=== PATIENT | male | born 1950 | race Caucasian/White ===

== ENCOUNTER → 2016-06-19 | Outpatient (CLI) | payer BC, OTHER ==
[~2016-06-19] MED LIST: ACTUDL GJT; AMLO-114 PO; AMOX1TAB43 PO; AMOX875T PO; ASPI325T39 PO; ASPI81TA28 PO; CALC500C3 PO; CARB25TA12 PO; CBCI IV; CLON0.5T3 PO; CPR500 PO; DOCU-94 PO; DVN/160 PO; DVN80 PO; ESCI10TA17 PO; ESCI1TAB6 PO; FRRS300 PO; HYDR-5688 PO; HYDROMORPHONE HCL PO; INDSR/60 PO; MYS50 PO; NRV5 PO; OXYC-164 PO; PANCCAP2 PO; PANT40TA PO; PRIM50TA29 PO; PRLSR20 PO; PRT40 PO; RXC5 PO; SIMV40TA2 PO; SODI0.9S IV; TPN IV; VANC5CAP; XNX25 PO; [UNRECOGNIZED DRUG - CODE] RE
[2016-06-19 12:58] LABS: BASO % 0.3 %; BASO ABS # 0.03 K/uL (0-0.2); COMPLETE YES; EOS % 3.3 %; HEMATOCRIT 40.5 % (42-52); IG% 0.3 %; LYMPH % 13.6 %; LYMPH ABS # 1.52 K/uL (1.2-3.4); MEAN CORPUSCULAR HEMOGLOBIN 30.4 pg (25-34); MEAN CORPUSCULAR HGB CONC 33.8 g/dl (32-36); MEAN PLATELET VOLUME 10.6 fL (7.4-10.4); MONO % 7.8 %; NEUT % 74.7 %; PLATELET COUNT 519 K/uL (130-400)
[2016-06-19 13:13] LABS: INR 1.2 (0.9-1.1); PROTHROMBIN TIME (PATIENT) 12.4 SECONDS (9.0-12.0)
[2016-06-19 13:27] LABS: ALKALINE PHOSPHATASE 108 U/L (45-117); ALT/SGPT 37 U/L (12-78); AST/SGOT 20 U/L (15-37); BLOOD UREA NITROGEN 29 mg/dl (7-18); BUN/CREATININE RATIO 35.1 (10-20); CARBON DIOXIDE 25 mmol/L (21-32); CHLORIDE 110 mmol/L (98-107); CREATININE 0.83 mg/dl (0.60-1.40); GLUCOSE 89 mg/dl (70-99); POTASSIUM 4.1 mmol/L (3.5-5.1); SODIUM 142 mmol/L (136-145); TRIGLYCERIDES 90 mg/dl (0-150)
== END | disposition home or self-care (01) ==
LOC: C.LABSPEC 12:27
PROVIDERS: ATTEND Internal Medicine Gastroenterology
DX: K85.90 Acute pancreatitis without necrosis or infection, unspecified (principal)

== ENCOUNTER → 2016-06-26 | Outpatient (CLI) | payer BC ==
[~2016-06-26] MED LIST changes: -AMOX875T PO; -ASPI81TA28 PO; -CARB25TA12 PO; -DOCU-94 PO; -FRRS300 PO; -PRT40 PO
[2016-06-26 13:27] LABS: BASO ABS # 0.01 K/uL (0-0.2); COMPLETE YES; EOS % 0.4 %; HEMATOCRIT 37.5 % (42-52); IG% 0.4 %; LYMPH % 4.2 %; LYMPH ABS # 0.91 K/uL (1.2-3.4); MEAN CELL VOLUME 88.9 fL (80-100); MEAN CORPUSCULAR HEMOGLOBIN 29.9 pg (25-34); MEAN CORPUSCULAR HGB CONC 33.6 g/dl (32-36); MEAN PLATELET VOLUME 10.6 fL (7.4-10.4); MONO % 5.8 %; NEUT % 89.2 %; PLATELET COUNT 434 K/uL (130-400); RED BLOOD COUNT 4.22 M/uL (4.7-6.1); WHITE BLOOD COUNT 21.85 K/uL (4.8-10.8)
[2016-06-26 13:36] LABS: INR 1.2 (0.9-1.1); PROTHROMBIN TIME (PATIENT) 13.3 SECONDS (9.0-12.0)
[2016-06-26 13:50] LABS: ALT/SGPT 180 U/L (12-78); BLOOD UREA NITROGEN 23 mg/dl (7-18); CALCIUM 8.8 mg/dl (8.5-10.1); CARBON DIOXIDE 26 mmol/L (21-32); CHLORIDE 108 mmol/L (98-107); CREATININE 0.66 mg/dl (0.60-1.40); GLUCOSE 87 mg/dl (70-99); MAGNESIUM 1.9 mg/dl (1.8-2.4); POTASSIUM 3.7 mmol/L (3.5-5.1); SODIUM 142 mmol/L (136-145)
[2016-06-26 13:53] LABS: ALKALINE PHOSPHATASE 133 U/L (45-117); AST/SGOT 65 U/L (15-37); PHOSPHORUS 3.2 mg/dl (2.5-4.9); TRIGLYCERIDES 48 mg/dl (0-150)
== END | disposition home or self-care (01) ==
LOC: C.LABSPEC 12:53
PROVIDERS: ATTEND Internal Medicine Gastroenterology
DX: K85.90 Acute pancreatitis without necrosis or infection, unspecified (principal)

== ENCOUNTER 2016-06-28 17:29 | Inpatient (IN) | payer BC, OTHER ==
[~2016-06-28] VITALS: Ht 172.7 cm; Wt 67.7 kg
[~2016-06-28 17:29] MED LIST changes: -ACTUDL GJT; -AMLO-114 PO; -AMOX1TAB43 PO; -ASPI325T39 PO; -CALC500C3 PO; -CBCI IV; -CPR500 PO; -DVN80 PO; -ESCI10TA17 PO; -ESCI1TAB6 PO; -HYDROMORPHONE HCL PO; -INDSR/60 PO; -MYS50 PO; -NRV5 PO; -OXYC-164 PO; -PANCCAP2 PO; -PRIM50TA29 PO; -PRLSR20 PO; -RXC5 PO; -SODI0.9S IV; -TPN IV; -VANC5CAP; -[UNRECOGNIZED DRUG - CODE] RE
[2016-06-28] MEDS ORDERED: HYDROmorphone INJ 1 MG/ML SYR IV STA ×2 (17:43→18:49)
[2016-06-28] MEDS ORDERED: ONDANSETRON INJ 2 MG/ML 2 ML VIAL IV STA (17:43)
[2016-06-28] MEDS ORDERED: SODIUM CHLORIDE 0.9% 1000ML 1,000 ML IV STA (17:43)
[2016-06-28] MEDS ORDERED: PIPERACILLIN/TAZOBACTAM 4.5 GM/100ML D5W IV STA (17:46)
[2016-06-28] MEDS ORDERED: OPTIRAY 320 IV PRN (18:00)
[2016-06-28 18:06] LABS: BASO % 0.2 %; BASO ABS # 0.04 K/uL (0-0.2); COMPLETE YES; EOS % 0.7 %; HEMATOCRIT 37.1 % (42-52); IG% 0.5 %; LYMPH ABS # 1.97 K/uL (1.2-3.4); MEAN CELL VOLUME 87.5 fL (80-100); MEAN CORPUSCULAR HEMOGLOBIN 31.1 pg (25-34); MEAN CORPUSCULAR HGB CONC 35.6 g/dl (32-36); MEAN PLATELET VOLUME 10.4 fL (7.4-10.4); MONO % 2.9 %; NEUT % 85.7 %; PLATELET COUNT 451 K/uL (130-400); RED BLOOD COUNT 4.24 M/uL (4.7-6.1); WHITE BLOOD COUNT 19.79 K/uL (4.8-10.8)
[2016-06-28] MEDS ORDERED: SODIUM CHLORIDE 0.9% 1000ML 2,000 ML IV STA (18:07)
[2016-06-28] MEDS ORDERED: KETOROLAC TROMETHAMINE 30 MG/ML VIAL IV STA (18:07)
[2016-06-28] MEDS ORDERED: ACETAMINOPHEN IV 650 MG in EMPTY BAG 0 ML IV STA (18:09)
[2016-06-28 18:10] LABS: ISTAT CREATININE 0.6 mg/dl (0.6-1.3); ISTAT HEMOGLOBIN 12.9 g/dl (14.0-18.0); ISTAT IONIZED CALCIUM 1.16 mmol/l (1.12-1.32)
--- NOTE | 2016-06-28 18:11 | DIAGNOSTIC IMAGING REPORT ---
CHEST ONE VIEW PORTABLE CLINICAL HISTORY: fever COMPARISON STUDY: 05/06/2016 FINDINGS: The examination is mildly limited from a technical standpoint. There is a right-sided PICC catheter which projects in the superior vena cava. There is a nasogastric tube which passes into the stomach. There is no focal pulmonary consolidation. A right upper lung zone line shadow is felt to represent a skinfold. There are no pleural effusions. There is no overt failure.[ IMPRESSION: AP portable study. No active disease in the chest. Electronically signed by: Abdoulaye Alarcon M.D. 06/28/2016 6:09 PM Dictated Date/Time: 06/28/2016 6:08 PM
[2016-06-28 18:14] LABS: INR 1.2 (0.9-1.1); PROTHROMBIN TIME (PATIENT) 12.9 SECONDS (9.0-12.0)
[2016-06-28 18:30] LABS: ALKALINE PHOSPHATASE 161 U/L (45-117); ALT/SGPT 91 U/L (12-78); AST/SGOT 27 U/L (15-37); BLOOD UREA NITROGEN 19 mg/dl (7-18); BUN/CREATININE RATIO 25.8 (10-20); CALCIUM 9.1 mg/dl (8.5-10.1); CARBON DIOXIDE 25 mmol/L (21-32); CHLORIDE 105 mmol/L (98-107); CREATININE 0.74 mg/dl (0.60-1.40); GLUCOSE 85 mg/dl (70-99); MAGNESIUM 2.6 mg/dl (1.8-2.4); POTASSIUM 3.7 mmol/L (3.5-5.1); SODIUM 142 mmol/L (136-145)
--- NOTE | 2016-06-28 18:57 | DIAGNOSTIC IMAGING REPORT ---
CT ABD/PELVIS IV CONTRAST ONLY CLINICAL HISTORY: Severe abdominal pain. Extent. COMPARISON STUDY: 06/11/2016 TECHNIQUE: Following the IV administration of 120 mL of Optiray-320, CT scan of the abdomen and pelvis was performed from the lung bases to the proximal femurs. Images are reviewed in the axial, sagittal, and coronal planes. IV contrast was administered without complication. CT DOSE: 282.53 mGy.cm FINDINGS: Lower chest: There are minor basilar atelectatic changes. Liver: There is mild prominence the central intrahepatic ducts. No focal hepatic masses are visualized. Gallbladder: Surgically absent Spleen: There is mild splenomegaly (13.2 cm). There are several linear lucencies within the superior aspect of the spleen. Small splenic lacerations cannot be excluded although there is no perisplenic fluid to support this diagnosis. In addition there is no history of trauma. Pancreas: There is an indwelling pancreatic no duodenal stent. There is indistinctness the pancreatic tail and peripancreatic stranding. There is infiltration of the fat level the splenic hilum. The findings suggest mild pancreatitis. There is subtle hypodensities at the level of the pancreatic tail. These could be related to pancreatitis although a neoplastic process cannot be excluded with certainty Adrenal glands: There is mild adrenal gland thickening similar to the prior study Kidneys: There are vascular calcifications. No calculi are visualized. No solid renal masses are evident. Bowel: There are no transition zones indicate bowel obstruction. There is small fat-containing left inguinal hernia. There are no findings to indicate acute diverticulitis. There are no findings to indicate acute appendicitis. There is indwelling nasogastric tube. There are postsurgical changes the level of the rectosigmoid Peritoneum: There is trace free pelvic fluid. No free air is visualized. Vasculature: The abdominal aorta is normal in course and caliber. Adenopathy: None. Pelvic viscera: There is mild prostatic enlargement Skeletal structures: No destructive osseous lesions are seen. IMPRESSION: 1. Indwelling pancreatic duodenal stent 2. Indistinctness the pancreatic tail with peripancreatic stranding. The findings are suggestive of pancreatitis 3. Mild splenomegaly. There are clefts within the superior margin of the spleen. Small lacerations cannot be excluded however there is no history of trauma, and there is no perisplenic fluid to support this diagnosis 4. No evidence of bowel obstruction. No evidence of free air 5. Surgically absent gallbladder. Mild dilatation the common bile duct (10 mm) Electronically signed by: Abdoulaye Alarcon M.D. 06/28/2016 6:55 PM Dictated Date/Time: 06/28/2016 6:45 PM
[2016-06-28] MEDS ORDERED: VANCOMYCIN 1GM/270ML NSS IV STA (19:17)
[2016-06-28] MEDS ORDERED: VANCOMYCIN INJ 1,300 MG in SODIUM CHLORIDE 0.9% 250ML 250 ML IV STA (19:17)
[2016-06-28 20:11] LABS: URINE APPEARANCE CLEAR (CLEAR); URINE BILIRUBIN NEG (NEG); URINE COLOR YELLOW; URINE NITRITE NEG (NEG); URINE SPECIFIC GRAVITY > 1.045 (1.000-1.030); UROBILINOGEN NEG (NEG); ZZURINE CULT IF INDIC CATH NO
[2016-06-28 20:28] LABS: MANUAL MICROSCOPIC REQUIRED? NO; REVIEW REQ? NO
[2016-06-28] MEDS ORDERED: LORAZEPAM 2 MG/ML 1 ML VIAL IV PRN ×2 (21:15)
[2016-06-28] MEDS ORDERED: ZOLPIDEM TARTRATE 5 MG TAB PO PRN (21:15)
[2016-06-28] MEDS ORDERED: PROMETHAZINE HCL INJ 25 MG in SODIUM CHLORIDE 0.9% 50ML 50 ML IV PRN (21:15)
[2016-06-28] MEDS ORDERED: ACETAMINOPHEN 325 MG TAB PO PRN (21:15)
[2016-06-28] MEDS ORDERED: VANCOMYCIN CONSULT ACTIVE PRN (22:07)
[2016-06-28 22:12] VITALS: BP 98/59; PULSE 89; TEMP 37.3; O2SAT 90
[2016-06-28] MEDS ORDERED: LORAZEPAM INJ 1 MG in SYRINGE 0.5 ML IV PRN (22:15)
[2016-06-28] MEDS ORDERED: LORAZEPAM INJ 0.5 MG in SYRINGE 0.25 ML IV PRN (22:15)
[2016-06-28] MEDS ORDERED: PIPERACILL/TAZOBAC CONSULT ACTIVE PRN (22:15)
[2016-06-28 22:51] VITALS: O2SAT 93; Ht 172.7 cm; Wt 67.7 kg
[2016-06-28 22:59] VITALS: BP 93/56; PULSE 83; TEMP 37.5; O2SAT 93
[2016-06-29] VITALS (7 sets, daily range): BP systolic 97–150; BP diastolic 59–64; PULSE 53–94; TEMP 36.5–38.9; O2SAT 92–100
[2016-06-29] MEDS ORDERED: CLONAZEPAM 0.5 MG TAB PO STA (00:04)
--- NOTE | 2016-06-29 00:51 | EMERGENCY ROOM VISIT NOTE ---
History Report prepared by Radha: Mishel Chavez Under the Supervision of: Tracee HigginbothamO. First contact with patient: 17:36 Chief Complaint: PAIN (GENERALIZED) Stated Complaint: PAIN AND SHAKING History of Present Illness The patient is a 65 year old male who presents to the Emergency Room with complaints of worsening left sided abdominal pain beginning earlier this afternoon. The patient had an ERCP and EUS 3 days ago in [place] chronic pancreatitis. He also had a stent placed in his pancreatic duct at that time. This afternoon he started experiencing severe left sided abdominal pain. He describes this pain as sharp. He states that this pain feels different than any pain that he has experienced before. It does not feel like his pancreatitis. About 30 minutes DAUB [employer]IXER the patient started shaking all over. He does not know why. He has a PICC line in his right upper arm and is receiving TPN. His last bowel movement was 4 days ago, which he states is not unusual for him. The patient's denies any recent fungal or bacterial infections. Pt denies headache, change in vision, chest pain, vomiting, diarrhea, pain with urination , and melena. 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 The patient rates his current pain as a 10/10 in severity. Source of History: patient, spouse/significant other Onset: this afternoon Position: abdomen Symptom Intensity: 10/10 Quality: sharp Timing: worsening Associated Symptoms: No chest pain, No diarrhea, No headache, No melena, No urinary symptoms, No vomiting Note: Pt notes generalized shaking. Review of Systems See HPI for pertinent positives & negatives. A total of 10 systems reviewed and were otherwise negative. Past Medical & Surgical Medical Problems: (1) Hypertension (2) Melanoma (3) Pancreatitis (4) Pancreatitis due to biliary obstruction Surgical Problems: (1) History of back surgery (2) S/P cholecystectomy (3) S/P colon resection Family History FH: cancer FH: gallbladder disease FH: heart disease Hypertension Social History Smoking Status: Former Smoker Alcohol Use: none Drug Use: none Marital Status: Housing Status: lives with significant other Occupation Status: retired Current/Historical Medications Scheduled Clonazepam (Klonopin), 0.5 MG PO QPM Pantoprazole (Protonix), 40 MG PO BID Simvastatin (Zocor), 40 MG PO QAM Valsartan (Diovan), 160 MG PO DAILY Scheduled PRN Alprazolam (Alprazolam), 0.25 MG PO TID PRN for Tremor Hydrocodone/Acetaminophen 5MG/325MG ([place] 5MG/325MG), 1-2 TAB PO Q4H PRN for Pain Allergies Coded Allergies: No Known Allergies (Unverified , 06/28/16) Physical Exam Vital Signs Date Time Temp Pulse Resp B/P Pulse Ox O2 Delivery O2 Flow Rate FiO2 06/28/16 20:48 38.6 06/28/16 20:34 97 20 100 06/28/16 20:28 124/60 06/28/16 20:19 94 21 100 06/28/16 20:13 111/57 06/28/16 20:04 90 19 100 06/28/16 19:58 110/56 06/28/16 19:49 94 21 100 06/28/16 19:45 117/58 06/28/16 19:44 38.4 93 20 117/58 100 Room Air 06/28/16 19:43 117/58 06/28/16 19:34 92 21 100 06/28/16 19:30 121/56 06/28/16 19:19 98 19 100 06/28/16 19:14 128/66 06/28/16 19:04 94 23 100 06/28/16 18:58 165/83 06/28/16 18:55 98 25 152/68 99 Room Air 06/28/16 18:49 92 26 98 06/28/16 18:48 152/68 06/28/16 18:29 105/60 06/28/16 18:19 87 17 96 06/28/16 18:17 86 06/28/16 18:14 87 25 122/59 97 06/28/16 18:11 119/66 06/28/16 18:00 38.7 92 33 157/70 99 Room Air 06/28/16 17:59 88 29 100 06/28/16 17:58 157/70 06/28/16 17:44 124 25 81 06/28/16 17:34 24 Room Air Physical Exam GENERAL: alert, laying in stretcher, diffuse body tremors, ill appearing EYE EXAM: normal conjunctiva OROPHARYNX: no exudate, no erythema, lips, buccal mucosa, and tongue normal and mucous membranes are moist NOSE: NG tube present NECK: supple, no nuchal rigidity, no adenopathy, non-tender LUNGS: Clear to auscultation. Normal chest wall mechanics HEART: Tachycardic, no murmurs, S1 normal and S2 normal ABDOMEN: abdomen soft, old RUQ abdominal incision with minimal tenderness diffusely to palpation. Normo-active bowel sounds, no masses, no rebound or guarding. BACK: Back is symmetrical on inspection and there is no deformity, no midline tenderness, no CVA tenderness. SKIN: no rashes and no bruising UPPER EXTREMITIES: upper extremities are grossly normal. Right arm with PICC in place. LOWER EXTREMITIES: No pitting edema. NEURO EXAM: Normal sensorium, cranial nerves II-XII grossly intact, normal speech, no gross weakness of arms, no gross weakness of legs. Medical Decision & Procedures ER Provider Diagnostic Interpretation: Radiology results as stated below per my review and radiologist interpretation: CHEST ONE VIEW PORTABLE CLINICAL HISTORY: fever COMPARISON STUDY: 05/06/2016 FINDINGS: The examination is mildly limited from a technical standpoint. There is a right-sided PICC catheter which projects in the superior vena cava. There is a nasogastric tube which passes into the stomach. There is no focal pulmonary consolidation. A right upper lung zone line shadow is felt to represent a skinfold. There are no pleural effusions. There is no overt failure.[ IMPRESSION: AP portable study. No active disease in the chest. Electronically signed by: Abdoulaye Alarcon M.D. 06/28/2016 6:09 PM Dictated Date/Time: 06/28/2016 6:[address] ABD/PELVIS IV CONTRAST ONLY CLINICAL HISTORY: Severe abdominal pain. Extent. COMPARISON STUDY: 06/11/2016 TECHNIQUE: Following the IV administration of 120 mL of Optiray-320, CT scan of the abdomen and pelvis was performed from the lung bases to the proximal femurs. Images are reviewed in the axial, sagittal, and coronal planes. IV contrast was administered without complication. CT DOSE: 282.53 mGy.cm FINDINGS: Lower chest: There are minor basilar atelectatic changes. Liver: There is mild prominence the central intrahepatic ducts. No focal hepatic masses are visualized. Gallbladder: Surgically absent Spleen: There is mild splenomegaly (13.2 cm). There are several linear lucencies within the superior aspect of the spleen. Small splenic lacerations cannot be excluded although there is no perisplenic fluid to support this diagnosis. In addition there is no history of trauma. Pancreas: There is an indwelling pancreatic no duodenal stent. There is indistinctness the pancreatic tail and peripancreatic stranding. There is infiltration of the fat level the splenic hilum. The findings suggest mild pancreatitis. There is subtle hypodensities at the level of the pancreatic tail. These could be related to pancreatitis although a neoplastic process cannot be excluded with certainty Adrenal glands: There is mild adrenal gland thickening similar to the prior study Kidneys: There are vascular calcifications. No calculi are visualized. No solid renal masses are evident. Bowel: There are no transition zones indicate bowel obstruction. There is small fat-containing left inguinal hernia. There are no findings to indicate acute diverticulitis. There are no findings to indicate acute appendicitis. There is indwelling nasogastric tube. There are postsurgical changes the level of the rectosigmoid Peritoneum: There is trace free pelvic fluid. No free air is visualized. Vasculature: The abdominal aorta is normal in course and caliber. Adenopathy: None. Pelvic viscera: There is mild prostatic enlargement Skeletal structures: No destructive osseous lesions are seen. IMPRESSION: 1. Indwelling pancreatic duodenal stent 2. Indistinctness the pancreatic tail with peripancreatic stranding. The findings are suggestive of pancreatitis 3. Mild splenomegaly. There are clefts within the superior margin of the spleen. Small lacerations cannot be excluded however there is no history of trauma, and there is no perisplenic fluid to support this diagnosis 4. No evidence of bowel obstruction. No evidence of free air 5. Surgically absent gallbladder. Mild dilatation the common bile duct (10 mm) Electronically signed by: Abdoulaye Alarcon M.D. 06/28/2016 6:55 PM Dictated Date/Time: 06/28/2016 6:45 PM Laboratory Results 06/28/16 17:45 Red Blood Count 4.24, Mean Corpuscular Volume 87.5, Mean Corpuscular Hemoglobin 31.1, Mean Corpuscular Hemoglobin Concent 35.6, Mean Platelet Volume 10.4, Neutrophils (%) (Auto) 85.7, Lymphocytes (%) (Auto) 10.0, Monocytes (%) (Auto) 2.9, Eosinophils (%) (Auto) 0.7, Basophils (%) (Auto) 0.2, Neutrophils # (Auto) 16.98, Lymphocytes # (Auto) 1.97, Monocytes # (Auto) 0.58, Eosinophils # (Auto) 0.13, Basophils # (Auto) 0.04 06/28/16 17:45 Test 06/28/16 17:45 06/28/16 17:49 06/28/16 17:52 06/28/16 19:40 White Blood Count 19.79 K/uL (4.8-10.8) Red Blood Count 4.24 M/uL (4.7-6.1) Hemoglobin 13.2 g/dL (14.0-18.0) Hematocrit 37.1 % (42-52) Mean Corpuscular Volume 87.5 fL (80-100) Mean Corpuscular Hemoglobin 31.1 pg (25-34) Mean Corpuscular Hemoglobin Concent 35.6 g/dl (32-36) Platelet Count 451 K/uL (130-400) Mean Platelet Volume 10.4 fL (7.4-10.4) Neutrophils (%) (Auto) 85.7 % Lymphocytes (%) (Auto) 10.0 % Monocytes (%) (Auto) 2.9 % Eosinophils (%) (Auto) 0.7 % Basophils (%) (Auto) 0.2 % Neutrophils # (Auto) 16.98 K/uL (1.4-6.5) Lymphocytes # (Auto) 1.97 K/uL (1.2-3.4) Monocytes # (Auto) 0.58 K/uL (0.11-0.59) Eosinophils # (Auto) 0.13 K/uL (0-0.5) Basophils # (Auto) 0.04 K/uL (0-0.2) RDW Standard Deviation 51.8 fL (36.4-46.3) RDW Coefficient of Variation 16.3 % (11.5-14.5) Immature Granulocyte % (Auto) 0.5 % Immature Granulocyte # (Auto) 0.09 K/uL (0.00-0.02) Prothrombin Time 12.9 SECONDS (9.0-12.0) Prothromb Time International Ratio 1.2 (0.9-1.1) Est Creatinine Clear Calc Drug Dose 95.6 ml/min Estimated GFR () 113.0 Estimated GFR (Non- 97.5 BUN/Creatinine Ratio 25.8 (10-20) Calcium Level 9.1 mg/dl (8.5-10.1) Magnesium Level 2.6 mg/dl (1.8-2.4) Total Bilirubin 0.6 mg/dl (0.2-1) Direct Bilirubin 0.2 mg/dl (0-0.2) Aspartate Amino Transf (AST/SGOT) 27 U/L (15-37) Alanine Aminotransferase (ALT/SGPT) 91 U/L (12-78) Alkaline Phosphatase 161 U/L (45-117) Total Creatine Kinase 43 U/L (39-308) Creatine Kinase MB < 0.5 ng/ml (0.5-3.6) Creatine Kinase MB Ratio (0-3.0) Troponin I < 0.015 ng/ml (0-0.045) Total Protein 7.4 gm/dl (6.4-8.2) Albumin 3.5 gm/dl (3.4-5.0) Bedside Lactic Acid Venous 3.90 mmol/L (0.90-1.70) Bedside Hemoglobin 12.9 g/dl (14.0-18.0) Bedside Hematocrit 38 % (42-52) Bedside Sodium 141 mEq/L (135-144) Bedside Potassium 3.6 mEq/L (3.3-5.0) Bedside Chloride 101 mEq/L (101-112) Bedside Total CO2 25 mEq/l (24-31) Anion Gap 19.0 mmol/L (16-25) Bedside Blood Urea Nitrogen 18 mg/dl (7-18) Bedside Creatinine 0.6 mg/dl (0.6-1.3) Bedside Glucose (other) 86 mg/dl (70-99) Bedside Ionized Calcium ([place]) 1.16 mmol/l (1.12-1.32) Urine Color YELLOW Urine Appearance CLEAR (CLEAR) Urine pH 6.0 (4.5-7.5) Urine Specific Fisher > 1.045 (1.000-1.030) Urine Protein NEG (NEG) Urine Glucose (UA) NEG (NEG) Urine Ketones NEG (NEG) Urine Occult Blood NEG (NEG) Urine Nitrite NEG (NEG) Urine Bilirubin NEG (NEG) Urine Urobilinogen NEG (NEG) Urine Leukocyte Esterase NEG (NEG) Urine WBC (Auto) 1-5 /hpf (0-5) Urine RBC (Auto) 0-4 /hpf (0-4) Urine Hyaline Casts (Auto) 1-5 /lpf (0-5) Urine Epithelial Cells (Auto) 10-20 /lpf (0-5) Urine Bacteria (Auto) NEG (NEG) Laboratory results per my review. Medications Administered Medications (Trade) Dose Ordered Sig/Pio Route Start Time Stop Time Status Last Admin Dose Admin Sodium Chloride (Nss 1000ml) 1,000 ml @ 999 mls/hr Q1H1M STAT IV 06/28/16 17:43 06/28/16 18:43 DC 06/28/16 17:43 999 MLS/HR Ondansetron HCl (Zofran Inj) 4 mg NOW STAT IV 06/28/16 17:43 06/28/16 17:45 DC 06/28/16 18:05 4 MG Hydromorphone HCl (Dilaudid Inj) 1 mg NOW STAT IV 06/28/16 17:43 06/28/16 17:45 DC 06/28/16 18:06 1 MG Piperacillin Sod/ Tazobactam Sod 4.5 gm 4.5 gm NOW STAT IV 06/28/16 17:46 06/28/16 17:48 DC 06/28/16 18:06 4.5 GM Sodium Chloride 2,000 ml @ 999 mls/hr Q2H1M STAT IV 06/28/16 18:07 06/28/16 20:07 DC 06/28/16 18:30 999 MLS/HR Acetaminophen/ Empty Bag (Ofirmev IV/ Empty Iv Bag 100ml) 65 ml @ 260 mls/hr Q6H STAT IV 06/28/16 18:09 06/28/16 18:23 DC 06/28/16 18:54 260 MLS/HR Hydromorphone HCl 1 mg 1 mg NOW STAT IV 06/28/16 18:49 06/28/16 18:50 DC 06/28/16 19:07 1 MG Vancomycin HCl/ Sodium Chloride (Vancomycin Inj/ Nss 250ml) 276 ml @ 125 mls/hr NOW STAT IV 06/28/16 19:17 06/28/16 21:29 DC 06/28/16 20:01 125 MLS/HR ED Course ED COURSE: Vital signs were reviewed and showed febrile and tachycardic. The patients medical record was reviewed The above diagnostic studies were performed and reviewed. ED treatments and interventions as stated above. 173: The patient was evaluated in room A1. A complete history and physical examination was performed. 1743: Dilaudid 1 mg IV, Zofran 4 mg IV, NSS 1000 ml @ 999 mls/hr IV 1746: Zosyn 4.5 gm IV 1803: I reassessed the patient at this time. He is still having pain. 180: Toradol 15 mg IV, NSS 2000 ml @ 999 mls/hr IV 180: Acetaminophen 65 ml @ 260 mls/hr IV 1849: Dilaudid 1 mg IV 1917: Vancomycin 276 ml @ 125 mls/hr IV 1918: Upon reevaluation, the patient is resting more comfortably. I discussed my findings with the patient and he understands and agrees with the treatment plan. Based on the patients age, coexisting illnesses, exam and lab findings the decision to treat as an inpatient was made. The patient remained stable while under my care. The patient will be evaluated for further management. 2000: I spoke with Dr. Springer. We discussed the patient's results and treatment plan. The patient will be evaluated by the [facility] for further management. 2006: I updated the patient and his . Medical Decision Differential diagnosis includes etiologies such as sepsis, UTI, pneumonia, metabolic, electrolyte abnormalities, cardiac sources, intracerebral event, toxicologic, neurologic, as well as others were entertained. Patient is a 65-year-old male who presents the ER with diffuse body shaking and was afebrile, tachycardic with a recent biliary stent placed. He has a leukocytosis of 19,000, BMP along with LFTs and bilirubin are fairly unremarkable. Troponin was negative. Lactate was elevated at 4. UA was unremarkable. Chest x-ray shows no focal infiltrate. CT of the abdomen and pelvis shows peripancreatic stranding. There are clefts within the superior margin of the spleen. No history of trauma. I do not believe this is likely. He does have mild dilation of the CBD at 10 mm. Patient was given IV antibiotics. Is also given a bolus normal saline along with 2 IV dose of Dilaudid. Patient was admitted to internal medicine for sepsis of uncertain etiology. Consults Time Called: 1955 Consulting Physician: Dr. Springer Returned Call: [address] Springer. We discussed the patient's results and treatment plan. The patient will be evaluated by the [facility] for further management. Impression Primary Impression: Sepsis Additional Impression: Lactic acidosis Scribe Attestation The scribe's documentation has been prepared under my direction and personally reviewed by me in its entirety. I confirm that the note above accurately reflects all work, treatment, procedures, and medical decision making performed by me. Departure Information Dispostion Being Evaluated By Hospitalist Referrals No Doctor, Assigned (PCP) Patient Instructions My [facility] Problem Qualifiers Primary Impression: Sepsis Sepsis type: sepsis due to unspecified organism Qualified Codes: A41.9 - Sepsis, unspecified organism
[2016-06-29] MEDS ORDERED: NURSING VERBAL MED ORDER ONE ×2 (01:15→07:45)
[2016-06-29] MEDS ORDERED: TPN INFUSION IV SCH (02:00)
--- NOTE | 2016-06-29 03:48 | History and Physical ---
History & Physical Date & Time of Service: Jun 29, 2016 at 03:08 Chief Complaint: Pancreatitis Due To Biliary Obstruction Primary Care Physician: Chino Abdul MD History of Present Illness Source: patient, spouse The patient is a 65-year-old male who presents to the emergency room with complaint of worsening left-sided abdominal pain that began earlier in the afternoon prior to arrival. She is status post pancreatic duct stent placement by ERCP and EUS 3 days ago and [place]. He has had 4 previous episodes of pancreatitis, with most recent being while hospitalized from May 14 through May 22, and that this pain is unlike previous episodes. He reportedly started shaking all over about 30 minutes after symptoms began. He presently is receiving TPN through a PICC in his right upper arm, and was to be starting enteral nutrition through an NG tube tomorrow. He presently is taking clotrimazole troches for thrush otherwise, has no active infections. Past Medical/Surgical History Medical Problems: (1) Hypertension Status: Chronic (2) Melanoma Status: Resolved (3) Pancreatitis Status: Resolved Surgical Problems: (1) History of back surgery Status: Resolved (2) S/P cholecystectomy Status: Resolved (3) S/P colon resection Status: Resolved Family History FH: cancer FH: gallbladder disease FH: heart disease Hypertension Social History Smoking Status: Former Smoker Smokeless Tobacco Use: No Alcohol Use: none Drug Use: none Marital Status: Housing status: lives with family Occupational Status: retired Multi-Drug Resistant Organisms History of MDRO: No Allergies Coded Allergies: No Known Allergies (Unverified , 06/28/16) Home Medications Scheduled Clonazepam (Klonopin), 0.5 MG PO QPM Pantoprazole (Protonix), 40 MG PO BID Simvastatin (Zocor), 40 MG PO QAM Valsartan (Diovan), 160 MG PO DAILY Scheduled PRN Alprazolam (Alprazolam), 0.25 MG PO TID PRN for Tremor Hydrocodone/Acetaminophen 5MG/325MG ([place] 5MG/325MG), 1-2 TAB PO Q4H PRN for Pain Review of Systems The patient denies chest pain, palpitations, shortness of breath, cough, lower extremity swelling, vision change, hearing change, sore throat, fevers, chills, sweats, vomiting, blood in urine or stool, dysuria, urinary frequency or urgency, headache, memory loss, rash, abnormal bruising or bleeding, imbalance, focal weakness, numbness or tingling in arms or legs, night sweats, or allergy symptoms. The review of systems is otherwise negative other than for that already noted above, and at least 10 systems have been reviewed. Physical Exam Vital Signs Date Time Temp Pulse Resp B/P Pulse Ox O2 Delivery O2 Flow Rate FiO2 06/28/16 22:59 37.5 83 16 93/56 93 Room Air 06/28/16 22:51 93 Room Air 06/28/16 22:12 37.3 89 18 98/59 90 Room Air 06/28/16 21:30 89 108/57 100 06/28/16 20:48 38.6 06/28/16 20:34 97 20 100 06/28/16 20:28 124/60 06/28/16 20:19 94 21 100 06/28/16 20:13 111/57 06/28/16 20:04 90 19 100 06/28/16 19:58 110/56 06/28/16 19:49 94 21 100 06/28/16 19:45 117/58 06/28/16 19:44 38.4 93 20 117/58 100 Room Air 06/28/16 19:43 117/58 06/28/16 19:34 92 21 100 06/28/16 19:30 121/56 06/28/16 19:19 98 19 100 06/28/16 19:14 128/66 06/28/16 19:04 94 23 100 06/28/16 18:58 165/83 06/28/16 18:55 98 25 152/68 99 Room Air 06/28/16 18:49 92 26 98 06/28/16 18:48 152/68 06/28/16 18:29 105/60 06/28/16 18:19 87 17 96 06/28/16 18:17 86 06/28/16 18:14 87 25 122/59 97 06/28/16 18:11 119/66 06/28/16 18:00 38.7 92 33 157/70 99 Room Air 06/28/16 17:59 88 29 100 06/28/16 17:58 157/70 06/28/16 17:44 124 25 81 06/28/16 17:34 24 Room Air The patient is awake, alert and oriented 3, appears chronically ill with nasogastric tube in left nares, lying in bed and in no acute distress. HEENT--PERRL, EOMI, mucous membranes and oropharynx with thrush, Neck--supple, no JVD or bruits, thyroid normal, trachea midline, no adenopathy. Heart--normal S1 and S2, no extra beats, no murmurs, rubs or gallops. Lungs--clear bilaterally with good air movement, no respiratory distress, no accessory muscle use. Abdomen--normal bowel sounds and soft, tender left lower quadrant, no hernias or masses, no organomegaly. Extremities--no cyanosis, clubbing or edema. There are good distal pulses b/l. Dermatologic--normal skin turgor, normal color, warm and dry, no abnormal lymph nodes, no rash. Neurologic--cranial nerves II through XII grossly intact. Rheumatologic--normal range of motion, nontender, muscles and joints. Psychiatric--normal affect. Diagnostics Laboratory Results Results Past 24 Hours Test 06/28/16 17:45 06/28/16 17:49 06/28/16 17:52 06/28/16 19:40 Range/Units White Blood Count 19.79 4.8-10.8 K/uL Red Blood Count 4.24 4.7-6.1 M/uL Hemoglobin 13.2 14.0-18.0 g/dL Hematocrit 37.1 42-52 % Mean Corpuscular Volume 87.5 80-100 fL Mean Corpuscular Hemoglobin 31.1 25-34 pg Mean Corpuscular Hemoglobin Concent 35.6 32-36 g/dl Platelet Count 451 130-400 K/uL Mean Platelet Volume 10.4 7.4-10.4 fL Neutrophils (%) (Auto) 85.7 % Lymphocytes (%) (Auto) 10.0 % Monocytes (%) (Auto) 2.9 % Eosinophils (%) (Auto) 0.7 % Basophils (%) (Auto) 0.2 % Neutrophils # (Auto) 16.98 1.4-6.5 K/uL Lymphocytes # (Auto) 1.97 1.2-3.4 K/uL Monocytes # (Auto) 0.58 0.11-0.59 K/uL Eosinophils # (Auto) 0.13 0-0.5 K/uL Basophils # (Auto) 0.04 0-0.2 K/uL RDW Standard Deviation 51.8 36.4-46.3 fL RDW Coefficient of Variation 16.3 11.5-14.5 % Immature Granulocyte % (Auto) 0.5 % Immature Granulocyte # (Auto) 0.09 0.00-0.02 K/uL Prothrombin Time 12.9 9.0-12.0 SECONDS Prothromb Time International Ratio 1.2 0.9-1.1 Sodium Level 142 136-145 mmol/L Potassium Level 3.7 3.5-5.1 mmol/L Chloride Level 105 98-107 mmol/L Carbon Dioxide Level 25 21-32 mmol/L Anion Gap 12.0 19.0 16-25 mmol/L Blood Urea Nitrogen 19 7-18 mg/dl Creatinine 0.74 0.60-1.40 mg/dl Est Creatinine Clear Calc Drug Dose 95.6 ml/min Estimated GFR () 113.0 Estimated GFR (Non- 97.5 BUN/Creatinine Ratio 25.8 10-20 Random Glucose 85 70-99 mg/dl Calcium Level 9.1 8.5-10.1 mg/dl Magnesium Level 2.6 1.8-2.4 mg/dl Total Bilirubin 0.6 0.2-1 mg/dl Direct Bilirubin 0.2 0-0.2 mg/dl Aspartate Amino Transf (AST/SGOT) 27 15-37 U/L Alanine Aminotransferase (ALT/SGPT) 91 12-78 U/L Alkaline Phosphatase 161 45-117 U/L Total Creatine Kinase 43 39-308 U/L Creatine Kinase MB < 0.5 0.5-3.6 ng/ml Creatine Kinase MB Ratio 0-3.0 Troponin I < 0.015 0-0.045 ng/ml Total Protein 7.4 6.4-8.2 gm/dl Albumin 3.5 3.4-5.0 gm/dl Bedside Lactic Acid Venous 3.90 0.90-1.70 mmol/L Bedside Hemoglobin 12.9 14.0-18.0 g/dl Bedside Hematocrit 38 42-52 % Bedside Sodium 141 135-144 mEq/L Bedside Potassium 3.6 3.3-5.0 mEq/L Bedside Chloride 101 101-112 mEq/L Bedside Total CO2 25 24-31 mEq/l Bedside Blood Urea Nitrogen 18 7-18 mg/dl Bedside Creatinine 0.6 0.6-1.3 mg/dl Bedside Glucose (other) 86 70-99 mg/dl Bedside Ionized Calcium ([place]) 1.16 1.12-1.32 mmol/l Urine Color YELLOW Urine Appearance CLEAR CLEAR Urine pH 6.0 4.5-7.5 Urine Specific [place] > 1.045 1.000-1.030 Urine Protein NEG NEG Urine Glucose (UA) NEG NEG Urine Ketones NEG NEG Urine Occult Blood NEG NEG Urine Nitrite NEG NEG Urine Bilirubin NEG NEG Urine Urobilinogen NEG NEG Urine Leukocyte Esterase NEG NEG Urine WBC (Auto) 1-5 0-5 /hpf Urine RBC (Auto) 0-4 0-4 /hpf Urine Hyaline Casts (Auto) 1-5 0-5 /lpf Urine Epithelial Cells (Auto) 10-20 0-5 /lpf Urine Bacteria (Auto) NEG NEG Test 06/28/16 23:53 Range/Units Lactic Acid Level 0.7 0.4-2.0 mmol/L Microbiology Results 06/28/16 Blood Culture, Received Pending 06/28/16 Blood Culture, Received Pending Diagnostic Radiology Patient Name: ALEJANDRA GAYTAN Unit Number: [id number] Dictated: 06/28/161807 Transcribed: 06/28/161807 ARG Printed Date/Time: [~ rep prt dt]/[~ rep prt tm] [~ rep ct labl] - [~ rep ct ivnm] [facility] Radiology Department [place], [place] [id number] Dictated: 06/28/161807 Transcribed: 06/28/161807 ARG Printed Date/Time: [~ rep prt dt]/[~ rep prt tm] [~ rep ct labl] - [~ rep ct ivnm] CLINICAL HISTORY: fever COMPARISON STUDY: 05/06/2016 FINDINGS: The examination is mildly limited from a technical standpoint. There is a right-sided PICC catheter which projects in the superior vena cava. There is a nasogastric tube which passes into the stomach. There is no focal pulmonary consolidation. A right upper lung zone line shadow is felt to represent a skinfold. There are no pleural effusions. There is no overt failure.[ IMPRESSION: AP portable study. No active disease in the chest. Electronically signed by: Abdoulaye Alarcon M.D. 06/28/2016 6:09 PM Dictated Date/Time: 06/28/2016 6:08 PM The status of this report is Signed. Draft = Not yet reviewed or approved by Radiologist. Signed = Reviewed and approved by Radiologist. <AttendingPhy></AttendingPhy> <FamilyPhy></FamilyPhy> <PrimaryPhy>No Doctor, Assigned</PrimaryPhy> <UnitNumber>[id number]</UnitNumber> <VisitNumber> [id number]</VisitNumber> <PatientName>ALEJANDRA GAYTAN</PatientName> < DateOfBirth>1950</DateOfBirth> <Location>[facility]</Location> <ServiceDate>06/02</ServiceDate> <MNE>ESINDI</MNE> <OrderingPhy>Joe Garcia DO</ OrderingPhy> <OrderingPhyMNE>f rep ord dr canela</OrderingPhyMNE> <DictatingPhyMNE> f rep dict dr canela</DictatingPhyMNE> <CCListMNE>f rep ct mne</CCListMNE> < AdmittingPhyMNE>f pt admit dr canela</AdmittingPhyMNE> <AttendingPhyMNE>f pt attend dr canela</AttendingPhyMNE> <ConsultingPhyMNE>f pt consult dr canela</ConsultingPhyMNE> <FamilyPhyMNE>f pt fam dr canela</FamilyPhyMNE> <OtherPhyMNE>f pt other dr canela</OtherPhyMNE> < PrimaryPhyMNE>f pt prim care dr canela</PrimaryPhyMNE> <ReferringPhyMNE>f pt referring dr canela</ReferringPhyMNE> Patient Name: ALEJANDRA GAYTAN Unit Number: [id number] Dictated: 06/28/161844 Transcribed: 06/28/161844 ARG Printed Date/Time: [~ rep prt dt]/[~ rep prt tm] [~ rep ct labl] - [~ rep ct ivnm] [facility] [place] [address] Dictated: 06/28/161844 Transcribed: 06/28/161844 ARG Printed Date/Time: [~ rep prt dt]/[~ rep prt tm] [~ rep ct labl] - [~ rep ct ivnm] [~ rep ct add3]] CT ABD/PELVIS IV CONTRAST ONLY CLINICAL HISTORY: Severe abdominal pain. Extent. COMPARISON STUDY: 06/11/2016 TECHNIQUE: Following the IV administration of 120 mL of Optiray-320, CT scan of the abdomen and pelvis was performed from the lung bases to the proximal femurs. Images are reviewed in the axial, sagittal, and coronal planes. IV contrast was administered without complication. CT DOSE: 282.53 mGy.cm FINDINGS: Lower chest: There are minor basilar atelectatic changes. Liver: There is mild prominence the central intrahepatic ducts. No focal hepatic masses are visualized. Gallbladder: Surgically absent Spleen: There is mild splenomegaly (13.2 cm). There are several linear lucencies within the superior aspect of the spleen. Small splenic lacerations cannot be excluded although there is no perisplenic fluid to support this diagnosis. In addition there is no history of trauma. Pancreas: There is an indwelling pancreatic no duodenal stent. There is indistinctness the pancreatic tail and peripancreatic stranding. There is infiltration of the fat level the splenic hilum. The findings suggest mild pancreatitis. There is subtle hypodensities at the level of the pancreatic tail. These could be related to pancreatitis although a neoplastic process cannot be excluded with certainty Adrenal glands: There is mild adrenal gland thickening similar to the prior study Kidneys: There are vascular calcifications. No calculi are visualized. No solid renal masses are evident. Bowel: There are no transition zones indicate bowel obstruction. There is small fat-containing left inguinal hernia. There are no findings to indicate acute diverticulitis. There are no findings to indicate acute appendicitis. There is indwelling nasogastric tube. There are postsurgical changes the level of the rectosigmoid Peritoneum: There is trace free pelvic fluid. No free air is visualized. Vasculature: The abdominal aorta is normal in course and caliber. Adenopathy: None. Pelvic viscera: There is mild prostatic enlargement Skeletal structures: No destructive osseous lesions are seen. IMPRESSION: 1. Indwelling pancreatic duodenal stent 2. Indistinctness the pancreatic tail with peripancreatic stranding. The findings are suggestive of pancreatitis 3. Mild splenomegaly. There are clefts within the superior margin of the spleen. Small lacerations cannot be excluded however there is no history of trauma, and there is no perisplenic fluid to support this diagnosis 4. No evidence of bowel obstruction. No evidence of free air 5. Surgically absent gallbladder. Mild dilatation the common bile duct (10 mm) Electronically signed by: Abdoulaye Alarcon M.D. 06/28/2016 6:55 PM Dictated Date/Time: 06/28/2016 6:45 PM The status of this report is Signed. Draft = Not yet reviewed or approved by Radiologist. Signed = Reviewed and approved by Radiologist. <AttendingPhy></AttendingPhy> <FamilyPhy>Sridhar Vela M.D.</FamilyPhy> < PrimaryPhy>Chino Abdul MD</PrimaryPhy> <UnitNumber>[id number]</UnitNumber > <VisitNumber>[id number]</VisitNumber> <PatientName>ALEJANDRA GAYTAN</ PatientName> <DateOfBirth>1950</DateOfBirth> <Location>[facility]</Location> < ServiceDate>06/28/16</ServiceDate> <MNE>ESINDI</MNE> <OrderingPhy>Joe Garcia DO</OrderingPhy> <OrderingPhyMNE>f rep ord dr canela</OrderingPhyMNE> < DictatingPhyMNE>f rep dict dr canela</DictatingPhyMNE> <CCListMNE>f rep ct rola</ CCListMNE> <AdmittingPhyMNE>f pt admit dr canela</AdmittingPhyMNE> <AttendingPhyMNE >f pt attend dr canela</AttendingPhyMNE> <ConsultingPhyMNE>f pt consult dr canela</ConsultingPhyMNE> <FamilyPhyMNE>f pt fam dr canela</FamilyPhyMNE> <OtherPhyMNE>f pt other dr canela</OtherPhyMNE> < PrimaryPhyMNE>f pt prim care dr canela</PrimaryPhyMNE> <ReferringPhyMNE>f pt referring dr mne</ReferringPhyMNE> Impression Assessment and Plan Recurrent pancreatitis, this time status post pancreatic duct stent with ERCP and EUS 3 days ago, will be admitted to the medical surgical floor with nothing by mouth status. Continue TPN through his PICC line for now, and will consult Dr. Valentine from GI, to determine if they want to continue with plans of starting enteral nutrition today. His reports they do have the enteral nutrition bag for today at home. He'll be placed on normal saline with potassium chloride 20 mEq at 100 mils per hour, Zosyn 3.375 mg IV every 8 hours , and vancomycin IV per pharmacy renally adjusted dosing. Anxiety--continue clonazepam 0.5 mg by mouth every evening prn. GERD--continue pantoprazole 40 mg by mouth twice a day. Hypercholesterolemia--simvastatin 40 mg by mouth every afternoon. Hypertension--hold valsartan 160 mg by mouth daily. Pain management--have morphine sulfate 2-4 mg IV every 2 hours when necessary. Level of Care Med/Surg Advanced Directives Existing Advance Directive: No Existing Living Will: No Existing Power of Pantry Chef: No Resuscitation Status FULL RESUSCITATION VTE Prophylaxis VTE Risk Assessment Done? Y/N: Yes Risk Level: Moderate Given or contraindicated: SCD's
[2016-06-29] MEDS ORDERED: VANCOMYCIN INJ 1,000 MG in SODIUM CHLORIDE 0.9% 250ML 250 ML IV SCH (04:00)
[2016-06-29] MEDS: MoRPHine SULFATE 2 MG/ML CARP IV PRN ×2 (06:13→09:04)
--- NOTE | 2016-06-29 06:16 | Pharmacy Progress Note ---
Pharmacy Antibiotic Consult Date of Service: Jun 29, 2016. Pharmacy Dosing Scope * Pharmacy is consulted to initiate Vancomycin IV dosing therapy, order appropriate labs and adjust drug dose/frequency. Subjective * The patient is a 65 year old male admitted on Jun 28, 2016 at 21:12. Objective Height (Feet): 5 Height (Inches): 8.00 Weight (Kilograms): 67.000 Lab Results (24hrs): Laboratory Tests Test 06/28/16 17:45 06/29/16 04:44 BUN/Creatinine Ratio 25.8 Blood Urea Nitrogen 19 mg/dl Creatinine 0.74 mg/dl White Blood Count 19.79 K/uL Red Blood Count 4.24 M/uL Hemoglobin 13.2 g/dL Hematocrit 37.1 % Mean Corpuscular Volume 87.5 fL Mean Corpuscular Hemoglobin 31.1 pg Mean Corpuscular Hemoglobin Concent 35.6 g/dl Platelet Count 451 K/uL Mean Platelet Volume 10.4 fL Neutrophils (%) (Auto) 85.7 % Lymphocytes (%) (Auto) 10.0 % Monocytes (%) (Auto) 2.9 % Eosinophils (%) (Auto) 0.7 % Basophils (%) (Auto) 0.2 % Neutrophils # (Auto) 16.98 K/uL Lymphocytes # (Auto) 1.97 K/uL Monocytes # (Auto) 0.58 K/uL Eosinophils # (Auto) 0.13 K/uL Basophils # (Auto) 0.04 K/uL Micro Results: * Blood cultures are pending Recent Pertinent Medications * Patient is also receiving Zosyn 3.375gm (extended infusion) IV every 8 hours Assessment & Plan * Loading dose: Vancomycin 1300mg (~ 19.4mg/kg given in ED) followed by vanco 1000mg IV every 10 hours. * Goal trough level estimate: between 16-20 * Trough level is on order for 06/29/16 at 2330 to be drawn prior to the 4 th dose. Pharmacy will continue to follow and will adjust dose/frequency as necessary. Thank you
[2016-06-29] MEDS: PIPERACILL/TAZOBAC IV 3.375 GM in DEXTROSE 5% 100ML 100 ML IV SCH ×3 (06:30→21:37)
[2016-06-29] MEDS ORDERED: TPN/PPN CONSULT PHARMACY PRN (07:45)
[2016-06-29] MEDS ORDERED: CONSULT PHARMACY PRN (07:45)
[2016-06-29] MEDS ORDERED: DEXTROSE 10% 1,000 ML IV PRN (07:45)
[2016-06-29 07:54] LABS: BASO % 0.1 %; BASO ABS # 0.02 K/uL (0-0.2); COMPLETE YES; EOS % 0.2 %; HEMATOCRIT 31.2 % (42-52); IG% 0.3 %; LYMPH % 3.2 %; LYMPH ABS # 0.45 K/uL (1.2-3.4); MEAN CELL VOLUME 86.9 fL (80-100); MEAN CORPUSCULAR HEMOGLOBIN 30.4 pg (25-34); MEAN CORPUSCULAR HGB CONC 34.9 g/dl (32-36); MEAN PLATELET VOLUME 10.4 fL (7.4-10.4); MONO % 2.6 %; NEUT % 93.6 %; PLATELET COUNT 276 K/uL (130-400); RED BLOOD COUNT 3.59 M/uL (4.7-6.1); WHITE BLOOD COUNT 14.25 K/uL (4.8-10.8)
[2016-06-29 08:03] LABS: INR 1.2 (0.9-1.1); PARTIAL THROMBOPLASTIN RATIO 1.5; PROTHROMBIN TIME (PATIENT) 13.4 SECONDS (9.0-12.0)
[2016-06-29 08:43] LABS: BUN/CREATININE RATIO 21.9 (10-20); CREATININE 0.63 mg/dl (0.60-1.40); MAGNESIUM 1.6 mg/dl (1.8-2.4); POTASSIUM 3.1 mmol/L (3.5-5.1)
[2016-06-29] MEDS: ACETAMINOPHEN IV 650 MG / 65ML IV PRN ×2 (08:54→18:49)
[2016-06-29] MEDS ORDERED: PANTOprazole SOD 40 MG TAB PO SCH (09:00)
[2016-06-29 09:03] LABS: URINE APPEARANCE CLEAR (CLEAR); URINE BILIRUBIN NEG (NEG); URINE COLOR YELLOW; URINE NITRITE NEG (NEG); URINE SPECIFIC GRAVITY 1.033 (1.000-1.030); UROBILINOGEN NEG (NEG); ZZUR CULT IF INDIC CLEAN CATCH NO
[2016-06-29 09:08] LABS: MANUAL MICROSCOPIC REQUIRED? NO; REVIEW REQ? NO
[2016-06-29] MEDS ORDERED: MAGNESIUM SULFATE 1GM / D5W 1 GM in PREMIXED IN D5W 100 ML IV ONE (09:15)
[2016-06-29] MEDS ORDERED: NSS + 20MEQ KCL 1000ML 1,000 ML IV SCH (10:00)
[2016-06-29] MEDS ORDERED: PANTOprazole INJ 40 MG in SYRINGE 0 ML IV SCH (11:00)
--- NOTE | 2016-06-29 11:12 | Progress Note ---
Subjective Date of Service: Jun 29, 2016. (Oumou French, CALDERONC) Subjective Pt evaluation today including: conversation w/ patient, conversation w/ family (), physical exam, chart review, lab review, review of studies, review of inpatient medication list Patient seen and evaluated. Reporting pain 6/10 in LUQ and upper body tremors. Does have H/O essential tremor on last admission D/C'd Propranolol 2/2 bradycardia. NGT placed during surgery for pancreatic duct stent with CT evidence placing it in the bowel. Reviewed surgical notes supplied by patient that revealed stenotic pancreatic duct with stones noted and is S/P stent. Surgery completed in [place]. BCx positive for gram neg bacilli x 2 with noted fever and rigors vs essential tremor. RUE PICC line placed last admission - will assess number of lumens as patient will need long-term antibiotics in setting of bacteremia. Voices no further complaints other than noted above. (Oumou French, CYNDI-C) Problem List Medical Problems: (1) Cyst of pancreas Status: Acute (2) Lactic acidosis Status: Acute (3) Leukocytosis Status: Acute (4) Pancreatitis Status: Acute (5) Pancreatitis Status: Acute (6) Sepsis Status: Acute (Oumou French, CALDERONC) Review of Systems Constitutional: + fever, + problem reported (rigors) Respiratory: No shortness of breath Cardiac: No chest pain Abdomen: + pain (LUQ), No constipation, No diarrhea, No nausea, No vomiting Musculoskeletal: No calf pain, No swelling Male : + problem reported (retention) Skin: No rash (Oumou French, CYNDI-C) Medications Current Inpatient Medications Medications (Trade) Dose Ordered Sig/Pio Route Start Time Stop Time Status Last Admin Dose Admin Ioversol 100 ml 100 ml UD PRN IV 06/28/16 18:00 07/02/16 17:59 Piperacillin Sod/ Tazobactam Sod/ Dextrose (Zosyn Iv/D5 100ml) 115 ml @ 28.75 mls/ hr Q8 IV 06/29/16 00:00 07/09/16 05:59 06/29/16 06:30 28.75 MLS/HR Ondansetron HCl (Zofran Inj) 4 mg Q6H PRN IV 06/28/16 21:15 07/28/16 21:14 Acetaminophen (Tylenol Tab) 650 mg Q4H PRN PO 06/28/16 21:15 07/28/16 21:14 Zolpidem Tartrate (Ambien Tab) 5 mg HSZ PRN PO 06/28/16 21:15 07/28/16 21:14 Clonazepam (Klonopin Tab) 0.5 mg QPM PO 06/29/16 21:00 07/29/16 20:59 Lorazepam (Ativan Inj) 0.5 mg Q4H PRN IV 06/28/16 21:15 07/28/16 21:14 Lorazepam (Ativan Inj) 1 mg Q4H PRN IV 06/28/16 21:15 07/28/16 21:14 Morphine Sulfate (MoRPHine SULFATE INJ) 2 mg Q2H PRN IV 06/28/16 21:15 07/12/16 21:14 06/29/16 09:04 2 MG Morphine Sulfate 4 mg 4 mg Q2H PRN IV 06/28/16 21:15 07/12/16 21:14 Promethazine HCl/ Sodium Chloride (Phenergan Inj/ Nss 50ml) 51 ml @ 204 mls/hr Q6H PRN IV 06/28/16 21:15 07/28/16 21:14 Piperacillin Sod/ Tazobactam Sod 1 ea 1 ea UD PRN N/A 06/28/16 22:15 07/28/16 22:14 Lorazepam 0.5 mg/ Syringe 0.5 ml @ 0.5 mls/min Q4H PRN IV 06/28/16 22:15 07/28/16 22:14 Lorazepam/Syringe (Ativan Inj/ Syringe) 1 ml @ 1 mls/min Q4H PRN IV 06/28/16 22:15 07/28/16 22:14 Total Parenteral Nutrition (Tpn Infusion) 1 ea TODAY@0200 IV 06/29/16 02:00 06/29/16 10:00 06/29/16 02:00 1 EA Pantoprazole Sodium 40 mg 40 mg BID PO 06/29/16 09:00 07/29/16 08:59 Acetaminophen 650 mg/Empty Bag 65 ml @ 260 mls/hr Q6H PRN IV 06/29/16 08:00 07/29/16 07:59 06/29/16 08:54 260 MLS/HR Dextrose (D10w) 1,000 ml @ 0 mls/hr Q0M PRN IV 06/29/16 07:45 07/29/16 07:44 Miscellaneous Information (Pharmacy Consult) 1 ea UD PRN N/A 06/29/16 07:45 07/29/16 07:44 (Oumou French, ISABELA) Objective Vital Signs Date Time Temp Pulse Resp B/P Pulse Ox O2 Delivery O2 Flow Rate FiO2 06/29/16 07:42 36.8 94 16 115/64 100 Room Air 06/28/16 23:45 Room Air 06/28/16 22:59 37.5 83 16 93/56 93 Room Air 06/28/16 22:51 93 Room Air 06/28/16 22:12 37.3 89 18 98/59 90 Room Air 06/28/16 21:30 89 108/57 100 06/28/16 20:48 38.6 06/28/16 20:34 97 20 100 06/28/16 20:28 124/60 06/28/16 20:19 94 21 100 06/28/16 20:13 111/57 06/28/16 20:04 90 19 100 06/28/16 19:58 110/56 06/28/16 19:49 94 21 100 06/28/16 19:45 117/58 06/28/16 19:44 38.4 93 20 117/58 100 Room Air 06/28/16 19:43 117/58 06/28/16 19:34 92 21 100 06/28/16 19:30 121/56 06/28/16 19:19 98 19 100 06/28/16 19:14 128/66 06/28/16 19:04 94 23 100 06/28/16 18:58 165/83 06/28/16 18:55 98 25 152/68 99 Room Air 06/28/16 18:49 92 26 98 06/28/16 18:48 152/68 06/28/16 18:29 105/60 06/28/16 18:19 87 17 96 06/28/16 18:17 86 06/28/16 18:14 87 25 122/59 97 06/28/16 18:11 119/66 06/28/16 18:00 38.7 92 33 157/70 99 Room Air 06/28/16 17:59 88 29 100 06/28/16 17:58 157/70 06/28/16 17:44 124 25 81 06/28/16 17:34 24 Room Air (Oumou French PA-C) Physical Exam General Appearance: WD/WN, no apparent distress, + thin Eyes: sclerae normal ENT: hearing grossly normal Neck: supple, no JVD, trachea midline Respiratory/Chest: lungs clear, normal breath sounds, no respiratory distress, no accessory muscle use Cardiovascular: regular rate, rhythm, no gallop, no murmur Abdomen: normal bowel sounds, soft, + tenderness (LUQ) Extremities: no pedal edema, no calf tenderness Neurologic/Psychiatric: alert, oriented x 3 Skin: normal color, warm/dry (Oumou French PA-C) Laboratory Results Last 24 Hours Test 06/28/16 17:45 06/28/16 17:49 06/28/16 17:52 06/28/16 19:40 White Blood Count 19.79 K/uL Red Blood Count 4.24 M/uL Hemoglobin 13.2 g/dL Hematocrit 37.1 % Mean Corpuscular Volume 87.5 fL Mean Corpuscular Hemoglobin 31.1 pg Mean Corpuscular Hemoglobin Concent 35.6 g/dl Platelet Count 451 K/uL Mean Platelet Volume 10.4 fL Neutrophils (%) (Auto) 85.7 % Lymphocytes (%) (Auto) 10.0 % Monocytes (%) (Auto) 2.9 % Eosinophils (%) (Auto) 0.7 % Basophils (%) (Auto) 0.2 % Neutrophils # (Auto) 16.98 K/uL Lymphocytes # (Auto) 1.97 K/uL Monocytes # (Auto) 0.58 K/uL Eosinophils # (Auto) 0.13 K/uL Basophils # (Auto) 0.04 K/uL RDW Standard Deviation 51.8 fL RDW Coefficient of Variation 16.3 % Immature Granulocyte % (Auto) 0.5 % Immature Granulocyte # (Auto) 0.09 K/uL Prothrombin Time 12.9 SECONDS Prothromb Time International Ratio 1.2 Sodium Level 142 mmol/L Potassium Level 3.7 mmol/L Chloride Level 105 mmol/L Carbon Dioxide Level 25 mmol/L Anion Gap 12.0 mmol/L 19.0 mmol/L Blood Urea Nitrogen 19 mg/dl Creatinine 0.74 mg/dl Est Creatinine Clear Calc Drug Dose 95.6 ml/min Estimated GFR () 113.0 Estimated GFR (Non- 97.5 BUN/Creatinine Ratio 25.8 Random Glucose 85 mg/dl Calcium Level 9.1 mg/dl Magnesium Level 2.6 mg/dl Total Bilirubin 0.6 mg/dl Direct Bilirubin 0.2 mg/dl Aspartate Amino Transf (AST/SGOT) 27 U/L Alanine Aminotransferase (ALT/SGPT) 91 U/L Alkaline Phosphatase 161 U/L Total Creatine Kinase 43 U/L Creatine Kinase MB < 0.5 ng/ml Creatine Kinase MB Ratio Troponin I < 0.015 ng/ml Total Protein 7.4 gm/dl Albumin 3.5 gm/dl Bedside Lactic Acid Venous 3.90 mmol/L Bedside Hemoglobin 12.9 g/dl Bedside Hematocrit 38 % Bedside Sodium 141 mEq/L Bedside Potassium 3.6 mEq/L Bedside Chloride 101 mEq/L Bedside Total CO2 25 mEq/l Bedside Blood Urea Nitrogen 18 mg/dl Bedside Creatinine 0.6 mg/dl Bedside Glucose (other) 86 mg/dl Bedside Ionized Calcium (Leighann) 1.16 mmol/l Urine Color YELLOW Urine Appearance CLEAR Urine pH 6.0 Urine Specific [place] > 1.045 Urine Protein NEG Urine Glucose (UA) NEG Urine Ketones NEG Urine Occult Blood NEG Urine Nitrite NEG Urine Bilirubin NEG Urine Urobilinogen NEG Urine Leukocyte Esterase NEG Urine WBC (Auto) 1-5 /hpf Urine RBC (Auto) 0-4 /hpf Urine Hyaline Casts (Auto) 1-5 /lpf Urine Epithelial Cells (Auto) 10-20 /lpf Urine Bacteria (Auto) NEG Test 06/28/16 23:53 06/29/16 06:55 06/29/16 08:25 Lactic Acid Level 0.7 mmol/L White Blood Count 14.25 K/uL Red Blood Count 3.59 M/uL Hemoglobin 10.9 g/dL Hematocrit 31.2 % Mean Corpuscular Volume 86.9 fL Mean Corpuscular Hemoglobin 30.4 pg Mean Corpuscular Hemoglobin Concent 34.9 g/dl Platelet Count 276 K/uL Mean Platelet Volume 10.4 fL Neutrophils (%) (Auto) 93.6 % Lymphocytes (%) (Auto) 3.2 % Monocytes (%) (Auto) 2.6 % Eosinophils (%) (Auto) 0.2 % Basophils (%) (Auto) 0.1 % Neutrophils # (Auto) 13.34 K/uL Lymphocytes # (Auto) 0.45 K/uL Monocytes # (Auto) 0.37 K/uL Eosinophils # (Auto) 0.03 K/uL Basophils # (Auto) 0.02 K/uL RDW Standard Deviation 52.3 fL RDW Coefficient of Variation 16.5 % Immature Granulocyte % (Auto) 0.3 % Immature Granulocyte # (Auto) 0.04 K/uL Prothrombin Time 13.4 SECONDS Prothromb Time International Ratio 1.2 Activated Partial Thromboplast Time 40.0 SECONDS Partial Thromboplastin Ratio 1.5 Sodium Level 143 mmol/L Potassium Level 3.1 mmol/L Chloride Level 110 mmol/L Carbon Dioxide Level 23 mmol/L Anion Gap 10.0 mmol/L Blood Urea Nitrogen 14 mg/dl Creatinine 0.63 mg/dl Est Creatinine Clear Calc Drug Dose 112.3 ml/min Estimated GFR () 120.7 Estimated GFR (Non- 104.1 BUN/Creatinine Ratio 21.9 Random Glucose 104 mg/dl Calcium Level 8.0 mg/dl Magnesium Level 1.6 mg/dl Total Bilirubin 0.6 mg/dl Direct Bilirubin 0.2 mg/dl Aspartate Amino Transf (AST/SGOT) 49 U/L Alanine Aminotransferase (ALT/SGPT) 91 U/L Alkaline Phosphatase 172 U/L Total Protein 5.6 gm/dl Albumin 2.5 gm/dl Amylase Level 75 U/L Lipase 288 U/L Urine Color YELLOW Urine Appearance CLEAR Urine pH 6.0 Urine Specific [place] 1.033 Urine Protein NEG Urine Glucose (UA) NEG Urine Ketones NEG Urine Occult Blood NEG Urine Nitrite NEG Urine Bilirubin NEG Urine Urobilinogen NEG Urine Leukocyte Esterase NEG Urine WBC (Auto) 1-5 /hpf Urine RBC (Auto) 0-4 /hpf Urine Hyaline Casts (Auto) 1-5 /lpf Urine Epithelial Cells (Auto) 5-10 /lpf Urine Bacteria (Auto) NEG (Oumou French PA-C) Assessment and Plan Mr. Schwarz is a 65 y/o WM with PMHx of Essential Tremor, HTN, S/P Colon Resection 2/2 Diverticulitis, S/P Cholecystectomy, Gastric Erosions, and Chronic Pancreatitis who is S/P Pancreatic Duct Stent. Bacteremia: - PICC line placed from previous admission - will assess lumen access - may need new line for prolonged Abx - BCx - gram negative bacilli x 2 - awaiting further culture results and sensitivity - Zosyn 3.375 mg Q8H Recurrent Pancreatitis - Probable 2/2 Flair from Surgical Intervention - S/P Pancreatic Stent POD #4 - Continue TPN as will be NPO during acute pancreatitis flair - Consult Dr Valentine - appreciate recommendations going forward with NGT enteral feeding initiation - Morphine 2-4 mg Q2H IV PRN Hypomagnesemia and Hypokalemia: - NSS + KCl 20 mEq at 100 mL/hr - Mag Sulfate 1 g x 1 - Continue monitoring and replete as necessary Anxiety: - Ativan 0.5 mg Q4H PRN GERD: - Pantoprazole 40 mg IV daily HLD: - Simvastatin 40 mg daily HTN: - Valsartan 160 mg daily DVT Prophylaxis: - TEDs/SCDs - Will withhold chemical prophylaxis at this point after ERCP with Stent Code Status: - FULL RESUSCITATION Disposition: - D/C unknown at this time - Has [facility] and [facility] established from prior admission Continued [facility] stay due to: multiple IV medications needed Discharge planning: home with home health (Oumou French, PA-C) PA Physician Supervision Note: I interviewed and examined the patient. Discussed with Oumou French PAC and agree with findings and plan as documented in the note. Any exceptions or clarifications are listed here: None Pt is feeling better but did have chills and rigors, lipase improved and GI medicine suggests starting tube feeds does have gram negative sepsis poa from recent instrumentation of pancreas vitals t max 38.7C lowest blood pressure 93/56 car is regular lungs are clear abdomen is soft , normal bowel sounds and only minor tenderness to deep palpation Gram negative sepsis from recent pancreatic stent Zosyn for infection escalate tube feeds and stop TPN once at goal follow pancreatitis as restarting feeding Documented By: Eddie Muhammad (Eddie Muhammad M.D.)
[2016-06-29] MEDS: PANTOprazole INJ 40 MG in SYRINGE 0 ML IV SCH (12:03)
--- NOTE | 2016-06-29 12:06 | Pharmacy Progress Note ---
Parenteral Nutrition Consult Date of Service Jun 29, 2016. [facility] Pharmacy has been consulted to manage parenteral nutrition orders and order appropriate labs. As part of the Nutrition Support Team guidelines, pharmacy will work in conjunction with dietary when determining the patients caloric needs. Subjective The patient is a 65 year old male admitted on Jun 28, 2016 at 21:12 for Pancreatitis Due To Biliary Obstruction. Patient is to receive parenteral nutrition as continuation of outpatient regimen. Was previously on a TPN and was meant to transition to oral feedings today. This has been postponed. Pertinent PMH: s/p pancreatic duct stent placement by ERCP recently. Objective Height (Feet): 5 Height (Inches): 8.00 Weight (Kilograms): 66.700 Diet: NPO Except Meds Vascular Access: PICC Intake & Output (Last 72 Hr): 06/27/16 06/28/16 06/29/16 08:00 08:00 08:00 Intake Total 299 ml Output Total 375 ml Balance -76 ml Laboratory Data (Last 24 Hr): Test 06/28/16 17:45 06/29/16 06:55 Alanine Aminotransferase (ALT/SGPT) 91 U/L (12-78) 91 U/L (12-78) Albumin 3.5 gm/dl (3.4-5.0) 2.5 gm/dl (3.4-5.0) Alkaline Phosphatase 161 U/L (45-117) 172 U/L (45-117) Aspartate Amino Transf (AST/SGOT) 27 U/L (15-37) 49 U/L (15-37) Blood Urea Nitrogen 19 mg/dl (7-18) 14 mg/dl (7-18) Calcium Level 9.1 mg/dl (8.5-10.1) 8.0 mg/dl (8.5-10.1) Carbon Dioxide Level 25 mmol/L (21-32) 23 mmol/L (21-32) Chloride Level 105 mmol/L (98-107) 110 mmol/L (98-107) Creatinine 0.74 mg/dl (0.60-1.40) 0.63 mg/dl (0.60-1.40) Magnesium Level 2.6 mg/dl (1.8-2.4) 1.6 mg/dl (1.8-2.4) Potassium Level 3.7 mmol/L (3.5-5.1) 3.1 mmol/L (3.5-5.1) Random Glucose 85 mg/dl (70-99) 104 mg/dl (70-99) Sodium Level 142 mmol/L (136-145) 143 mmol/L (136-145) Total Bilirubin 0.6 mg/dl (0.2-1) 0.6 mg/dl (0.2-1) Assessment Will continue TPN as written as an outpatient. Will utilized patient's own TPN for today and then subsequently this will need compounded. Plan For day 1 of PN administration, the following will be ordered: Macronutrients Amino acids 100 grams/day Dextrose 400 grams/day Lipids 0 grams/day (receives lipids 50 gm IV three times weekly. Last administration was today) Micronutrients (per outpatient TPN) Combined electrolytes 0 mL - contains 35 mEq Na, 20 meq K, 4.5 mEq Ca, 5 mEq Mg , 35 mEq Cl, 29.5 mEq acetate per 20 mL Sodium phosphate 0 MMol Sodium chloride 35 mEq Sodium acetate 0 mEq Potassium phosphate 21 mMol Potassium chloride 20 mEq Potassium acetate 0 mEq Magnesium sulfate 5 mEq Calcium gluconate 4.5 mEq Multivitamins 10 mL Trace Elements 10 mL Additional additives: thiamine 100 mg, folic acid 1 mg Total volume 1640 mL to be infused over 24 hrs will provide 1760 kcal/day Labs to be ordered per PN order protocol Pharmacy will follow and adjust parenteral nutrition orders on a daily basis. Thank you.
[2016-06-29] MEDS ORDERED: POTASSIUM CHLR 20 MEQ / WTR 20 MEQ in PREMIXED WATER 100 ML IV ONE (12:30)
[2016-06-29] MEDS: POTASSIUM CHLR 10MEQ / WTR IV SCH ×2 (13:24→15:34)
--- NOTE | 2016-06-29 13:31 | GASTROINTESTINAL CONSULTATION ---
DATE OF CONSULTATION: 06/29/2016 DATE OF CONSULTATION: 06/29/2016. REASON FOR EVALUATION: Abdominal pain. HISTORY OF PRESENT ILLNESS: The patient is a 65-year-old with history of recurrent pancreatitis starting 13 years ago. Over the last 13 years he has had 4-5 episodes, the last one being in April 2016 where he was hospitalized for several days. He has an abnormality in the distal part of his pancreas and he is placed on bowel rest and started on TPN, which was continued as an outpatient. Four days ago he went to [facility] where he underwent an endoscopic ultrasound and ERCP. There was a stricture found in the distal pancreatic duct between the body and tail as well as some possible stones. This was cleaned out and he had a pancreatic stent placed across the stricture. The patient also had a nasojejunal feeding tube placed to replace his TPN with eventual followup at [facility]. The patient presented to the hospital last night with pain in the upper abdomen which was different than his pancreatitis pain as well as shaking chills. He was hospitalized and blood cultures were drawn due to the high white count 19,000 and subsequently grown gram negative cyndy. The patient has been started on IV Zosyn and vancomycin pending final culture results. Currently, the patient's abdominal pain has subsided. He is currently receiving IV peripheral nutrition. PAST MEDICAL HISTORY: Remarkable for melanoma, recurrent pancreatitis, back surgery, cholecystectomy, sigmoid resection for diverticulitis and hypertension. MEDICATIONS: Per list. ALLERGIES: None. FAMILY HISTORY: Positive for gallbladder disease, heart disease, hypertension, and cancer. SOCIAL HISTORY: The patient is retired. He is . Former smoker, former drinker. REVIEW OF SYSTEMS: Positive for some weakness. Remainder is negative. PHYSICAL EXAMINATION: GENERAL: The patient appears in no acute distress. VITAL SIGNS: Show a temperature 36.5, pulse 57, blood pressure is 105/59. Room air saturations 95%. ABDOMEN: Shows midline scar. Bowel sounds are normal. There are no masses, tenderness, or hepatosplenomegaly. EXTREMITIES: Showed no clubbing, cyanosis or edema. He does have several IV lines in. NEUROLOGIC EXAMINATION: Nonfocal. IMPRESSION: The patient has pancreatic stricture, which has been stented. He has got a nasojejunal feeding tube in and at this point I think he can begin his nasojejunal feedings and taper off the peripheral nutrition. He is currently on IV antibiotics for positive blood cultures, most likely related to his pancreatic duct manipulation causing this bacteremia. We may be able to tailor his antibiotics more precisely once we have a specific organism and sensitivity identified. I will follow the patient during his hospital stay.
--- NOTE | 2016-06-29 14:04 | Clinical Documentation Query ---
CLINICAL DOCUMENTATION QUERY Dr. BAUER, In your clinical opinion is this patient being managed for: ( ) Sepsis due to pancreatic stent ( ) Other explanation of clinical findings (Please Explain) ( ) Unable to determine (Please Define) ( ) Need to Discuss ( ) Not Agree The medical record reflects the following clinical findings, treatment, and risk factors. Clinical Indicators: Vital signs: 38.7- 92-33, 157/70, WBC 19.79, Prelim blood cultures with gram negative bacilli, lactic acid 3.90 Treatment: NPO, GI consult, IV fluids, IV zosyn, IV vancomycin, 3L NSS bolus in ER Risk Factors: recent pancreatic stent insertion Please clarify and document your clinical opinion in the progress notes and discharge summary. Terms such as "probable", "suspected", "likely", "questionable", "possible", or "still to be ruled out" are acceptable. IF IN AGREEMENT, YOU MUST DOCUMENT ABOVE DIAGNOSTIC STATEMENT IN DAILY PROGRESS NOTES AND DISCHARGE SUMMARY. This document is not part of the patient's record. Thank You, Key Dominguez, TED [phone]
[2016-06-29] MEDS ORDERED: FIBERSOURCE HN 1000ML BAG NJ SCH ×2 (15:15)
[2016-06-29] MEDS: MoRPHine SULFATE 4 MG/ML 1 ML CARP\\VIAL IV PRN ×2 (15:34→18:54)
[2016-06-29] MEDS ORDERED: CUSTOM CENTRAL PN 1 BAG IV SCH (16:00)
[2016-06-29] MEDS: PEPTAMEN 1.5 CAL 1000ML BAG JT SCH (18:00)
[2016-06-29] MEDS: ONDANSETRON INJ 2 MG/ML 2 ML VIAL IV PRN (18:54)
[2016-06-29] MEDS: CLONAZEPAM 0.5 MG TAB PO SCH (21:35)
[2016-06-29] MEDS ORDERED: VANCOMYCIN TROUGH SCH (23:30)
[2016-06-30] VITALS (8 sets, daily range): BP systolic 106–132; BP diastolic 58–71; PULSE 52–62; TEMP 36.8–39; O2SAT 90–96
[2016-06-30] MEDS: PIPERACILL/TAZOBAC IV 3.375 GM in DEXTROSE 5% 100ML 100 ML IV SCH ×3 (06:04→21:57)
[2016-06-30] MEDS: MoRPHine SULFATE 4 MG/ML 1 ML CARP\\VIAL IV PRN ×3 (06:04→17:58)
--- NOTE | 2016-06-30 08:55 | Progress Note ---
Subjective Date of Service: Jun 30, 2016. Subjective pt has no complaints except for sore tongue, despite sligjht increase in lipase on abdominal symptoms, no further rigors or chills, tolerating start of jejunal feeding Problem List Medical Problems: (1) Cyst of pancreas Status: Acute (2) Lactic acidosis Status: Acute (3) Leukocytosis Status: Acute (4) Pancreatitis Status: Acute (5) Pancreatitis Status: Acute (6) Sepsis Status: Acute Review of Systems Constitutional: No chills, No fever ENT: + problem reported (tongue sore and coated ) Respiratory: No cough, No shortness of breath, No sputum Cardiac: No chest pain, No claudication, No edema, No orthopnea Abdomen: No diarrhea, No nausea, No pain, No vomiting Male : No dysuria, No urinary frequency Objective Vital Signs Date Time Temp Pulse Resp B/P Pulse Ox O2 Delivery O2 Flow Rate FiO2 06/30/16 08:03 90 Room Air 06/30/16 07:30 37.0 62 20 108/58 90 Room Air 06/30/16 00:09 Room Air 06/29/16 23:34 36.9 53 16 97/59 94 Room Air 06/29/16 18:35 37.4 74 20 150/ 92 Room Air 06/29/16 17:11 38.9 06/29/16 15:30 Room Air 06/29/16 15:13 36.7 55 16 120/64 95 06/29/16 12:34 36.5 57 16 105/59 95 Room Air 06/29/16 09:24 36.9 Physical Exam General Appearance: WD/WN, + mild distress Neck: supple, no JVD Respiratory/Chest: chest non-tender, lungs clear Cardiovascular: regular rate, rhythm, no murmur Abdomen: normal bowel sounds, non tender, soft Laboratory Results Last 24 Hours Test 06/29/16 12:27 06/29/16 18:03 06/29/16 23:43 06/30/16 05:56 Bedside Glucose 140 mg/dl 130 mg/dl 139 mg/dl 120 mg/dl Test 06/30/16 08:24 Assessment and Plan Mr. Schwarz is a 65 y/o WM with PMHx of Essential Tremor, HTN, S/P Colon Resection 2/2 Diverticulitis, S/P Cholecystectomy, Gastric Erosions, and Chronic Pancreatitis who is S/P Pancreatic Duct Stent. Sepsis from gram negative bacteria resultant from placement of pancreatic stent -E coli in 2 of 2 blood cultures, await sensitivities - Zosyn 3.375 mg Q8H -oral thrush, mycolex started 06/30 Recurrent Pancreatitis -improved by serology - Continue TPN and taper as tube feeds are escalated, is tolerating tube feeds well Hypomagnesemia and Hypokalemia: -replete with tpn, k phos also given 06/30 GERD:- Pantoprazole 40 mg IV daily HLD:- Simvastatin 40 mg daily HTN:- stable at this time Valsartan 160 mg daily Code Status:- FULL RESUSCITATION Continued [facility] stay due to: multiple IV medications needed Discharge planning: home with home health
[2016-06-30 09:00] LABS: BASO % 0.1 %; BASO ABS # 0.01 K/uL (0-0.2); COMPLETE YES; HEMATOCRIT 30.3 % (42-52); IG% 0.3 %; LYMPH % 6.9 %; LYMPH ABS # 0.62 K/uL (1.2-3.4); MEAN CELL VOLUME 86.3 fL (80-100); MEAN CORPUSCULAR HEMOGLOBIN 29.9 pg (25-34); MEAN CORPUSCULAR HGB CONC 34.7 g/dl (32-36); MEAN PLATELET VOLUME 10.3 fL (7.4-10.4); MONO % 7.6 %; NEUT % 84.1 %; PLATELET COUNT 253 K/uL (130-400); RED BLOOD COUNT 3.51 M/uL (4.7-6.1); WHITE BLOOD COUNT 8.93 K/uL (4.8-10.8)
[2016-06-30] MEDS: PANTOprazole INJ 40 MG in SYRINGE 0 ML IV SCH (09:16)
[2016-06-30 09:17] LABS: INR 1.3 (0.9-1.1); PARTIAL THROMBOPLASTIN RATIO 1.5; PROTHROMBIN TIME (PATIENT) 13.7 SECONDS (9.0-12.0)
[2016-06-30] MEDS: ACETAMINOPHEN IV 650 MG / 65ML IV PRN ×2 (09:17→19:20)
[2016-06-30 09:25] LABS: BUN/CREATININE RATIO 30.7 (10-20); CALCIUM 7.8 mg/dl (8.5-10.1); CREATININE 0.54 mg/dl (0.60-1.40); POTASSIUM 3.3 mmol/L (3.5-5.1)
[2016-06-30 09:29] LABS: PHOSPHORUS 1.7 mg/dl (2.5-4.9)
[2016-06-30] MEDS: PEPTAMEN 1.5 CAL 1000ML BAG JT SCH (10:16)
[2016-06-30] MEDS ORDERED: POTASSIUM PHOSPHATE INJ 21 MMOL in SODIUM CHLORIDE 0.9% 500ML 500 ML IV ONE (11:30)
--- NOTE | 2016-06-30 12:24 | PROGRESS NOTE ---
DATE: 06/30/2016 SUBJECTIVE: The patient states he still has some left upper quadrant pain, but feels much better than when he came into the hospital. He has no fever now and his white count has returned to normal today at 8.93. This is his third day on Zosyn. His blood cultures have both returned positive for E. coli. Sensitivities are following. I suspect it will be sensitive to Zosyn as he is clinically improving. I started back on his nasojejunal feeding tubes yesterday and his TPN and is being tapered. PHYSICAL EXAMINATION: VITAL SIGNS: Normal. He is afebrile. ABDOMEN: Shows abdominal scars. Bowel sounds are positive. There is a little bit of tenderness in left upper quadrant. He has a nasojejunal feeding tube in the left naris. IMPRESSION: The patient's pancreatic stricture with chronic pancreatic pain with E. coli bacteremia, probably from his manipulation of his pancreatic duct. Currently he is improving on his IV Zosyn and he is transitioning to his nasojejunal feedings which will be continued.
[2016-06-30] MEDS: CLOTRIMAZOLE 10 MG TROCHE MT SCH ×4 (13:50→22:35)
[2016-06-30] MEDS ORDERED: CUSTOM CENTRAL PN 1 BAG IV SCH (16:00)
[2016-06-30] MEDS: CLONAZEPAM 0.5 MG TAB PO SCH (21:57)
[2016-07-01] MEDS: MoRPHine SULFATE 2 MG/ML CARP IV PRN ×2 (00:09→23:27)
[2016-07-01] MEDS: PEPTAMEN 1.5 CAL 1000ML BAG JT SCH (00:10)
[2016-07-01] MEDS: PIPERACILL/TAZOBAC IV 3.375 GM in DEXTROSE 5% 100ML 100 ML IV SCH ×3 (05:39→21:57)
[2016-07-01] MEDS: ACETAMINOPHEN IV 650 MG / 65ML IV PRN ×3 (06:11→19:42)
[2016-07-01] MEDS: CLOTRIMAZOLE 10 MG TROCHE MT SCH ×6 (06:34→23:00)
[2016-07-01 06:35] LABS: BASO % 0.1 %; BASO ABS # 0.01 K/uL (0-0.2); COMPLETE YES; EOS % 1.9 %; HEMATOCRIT 31.2 % (42-52); IG% 0.8 %; LYMPH % 9.4 %; LYMPH ABS # 0.83 K/uL (1.2-3.4); MEAN CELL VOLUME 85.5 fL (80-100); MEAN CORPUSCULAR HEMOGLOBIN 29.9 pg (25-34); MEAN CORPUSCULAR HGB CONC 34.9 g/dl (32-36); MEAN PLATELET VOLUME 10.6 fL (7.4-10.4); MONO % 9.8 %; PLATELET COUNT 263 K/uL (130-400); RED BLOOD COUNT 3.65 M/uL (4.7-6.1); WHITE BLOOD COUNT 8.86 K/uL (4.8-10.8)
[2016-07-01 06:54] LABS: INR 1.2 (0.9-1.1); PARTIAL THROMBOPLASTIN RATIO 1.4; PROTHROMBIN TIME (PATIENT) 12.6 SECONDS (9.0-12.0)
[2016-07-01 07:04] LABS: BUN/CREATININE RATIO 30.3 (10-20); CALCIUM 7.8 mg/dl (8.5-10.1); CREATININE 0.56 mg/dl (0.60-1.40); MAGNESIUM 1.9 mg/dl (1.8-2.4); POTASSIUM 3.2 mmol/L (3.5-5.1)
[2016-07-01 07:17] LABS: PHOSPHORUS 1.8 mg/dl (2.5-4.9)
[2016-07-01 07:48] VITALS: BP 134/76; PULSE 59; TEMP 36.5; O2SAT 94
[2016-07-01] MEDS ORDERED: POTASSIUM PHOS 3 MMOL/1 ML INFUSION IV ONE (09:30)
[2016-07-01] MEDS: PANTOprazole INJ 40 MG in SYRINGE 0 ML IV SCH (09:40)
[2016-07-01] MEDS: ONDANSETRON INJ 2 MG/ML 2 ML VIAL IV PRN ×2 (09:46→12:20)
[2016-07-01] MEDS ORDERED: POTASSIUM PHOSPHATE INJ 30 MMOL in SODIUM CHLORIDE 0.9% 500ML 500 ML IV ONE (10:15)
--- NOTE | 2016-07-01 10:53 | Progress Note ---
Subjective Date of Service: Jul 01, 2016. Problem List Medical Problems: (1) Cyst of pancreas Status: Acute (2) Lactic acidosis Status: Acute (3) Leukocytosis Status: Acute (4) Pancreatitis Status: Acute (5) Pancreatitis Status: Acute (6) Sepsis Status: Acute Objective Vital Signs Date Time Temp Pulse Resp B/P Pulse Ox O2 Delivery O2 Flow Rate FiO2 07/01/16 07:48 36.5 59 16 134/76 94 Room Air 07/01/16 07:30 Room Air 06/30/16 23:20 Room Air 06/30/16 23:02 36.8 53 18 132/71 94 Room Air 06/30/16 21:49 37.2 06/30/16 21:27 38.2 06/30/16 20:45 39.0 06/30/16 15:24 37.5 62 24 118/62 92 Room Air 06/30/16 15:15 Room Air 06/30/16 12:19 36.9 52 20 106/58 96 Room Air Laboratory Results Last 24 Hours Test 06/30/16 11:55 06/30/16 17:07 06/30/16 20:42 07/01/16 05:55 Bedside Glucose 128 mg/dl 120 mg/dl 123 mg/dl White Blood Count 8.86 K/uL Red Blood Count 3.65 M/uL Hemoglobin 10.9 g/dL Hematocrit 31.2 % Mean Corpuscular Volume 85.5 fL Mean Corpuscular Hemoglobin 29.9 pg Mean Corpuscular Hemoglobin Concent 34.9 g/dl Platelet Count 263 K/uL Mean Platelet Volume 10.6 fL Neutrophils (%) (Auto) 78.0 % Lymphocytes (%) (Auto) 9.4 % Monocytes (%) (Auto) 9.8 % Eosinophils (%) (Auto) 1.9 % Basophils (%) (Auto) 0.1 % Neutrophils # (Auto) 6.91 K/uL Lymphocytes # (Auto) 0.83 K/uL Monocytes # (Auto) 0.87 K/uL Eosinophils # (Auto) 0.17 K/uL Basophils # (Auto) 0.01 K/uL RDW Standard Deviation 51.3 fL RDW Coefficient of Variation 16.4 % Immature Granulocyte % (Auto) 0.8 % Immature Granulocyte # (Auto) 0.07 K/uL Prothrombin Time 12.6 SECONDS Prothromb Time International Ratio 1.2 Activated Partial Thromboplast Time 36.2 SECONDS Partial Thromboplastin Ratio 1.4 Sodium Level 142 mmol/L Potassium Level 3.2 mmol/L Chloride Level 108 mmol/L Carbon Dioxide Level 25 mmol/L Anion Gap 9.0 mmol/L Blood Urea Nitrogen 17 mg/dl Creatinine 0.56 mg/dl Est Creatinine Clear Calc Drug Dose 128.9 ml/min Estimated GFR () 126.7 Estimated GFR (Non- 109.3 BUN/Creatinine Ratio 30.3 Random Glucose 124 mg/dl Calcium Level 7.8 mg/dl Phosphorus Level 1.8 mg/dl Magnesium Level 1.9 mg/dl Total Bilirubin 0.3 mg/dl Direct Bilirubin 0.1 mg/dl Aspartate Amino Transf (AST/SGOT) 82 U/L Alanine Aminotransferase (ALT/SGPT) 143 U/L Alkaline Phosphatase 269 U/L Total Protein 5.4 gm/dl Albumin 2.2 gm/dl Amylase Level 168 U/L Lipase 1238 U/L Test 07/01/16 07:50 Bedside Glucose 123 mg/dl Assessment and Plan Mr. Schwarz is a 65 y/o WM with PMHx of Essential Tremor, HTN, S/P Colon Resection 2/2 Diverticulitis, S/P Cholecystectomy, Gastric Erosions, and Chronic Pancreatitis who is S/P Pancreatic Duct Stent. since refeeding has had serology more in unfavorable direction Sepsis from gram negative bacteria resultant from placement of pancreatic stent -E coli in 2 of 2 blood cultures,burroughs sensitive, this is concerning as had fever on antibiotics - Zosyn 3.375 mg Q8H -oral thrush, mycolex started 06/30 Recurrent Pancreatitis -worsened by serology - Continue TPN and hold tube feeds as clinically feels some bloating and labs are trending in negative direction Hypomagnesemia and Hypokalemia: -replete with tpn, k phos also given 06/30 GERD:- Pantoprazole 40 mg IV daily HLD:- Simvastatin 40 mg daily HTN:- stable at this time Valsartan 160 mg daily Code Status:- FULL RESUSCITATION Continued [facility] stay due to: multiple IV medications needed Discharge planning: home with home health
[2016-07-01] MEDS ORDERED: NURSING VERBAL MED ORDER ONE ×2 (11:00→12:15)
[2016-07-01] MEDS ORDERED: BISACODYL 10 MG SUPP PR ONE (11:15)
--- NOTE | 2016-07-01 11:40 | PROGRESS NOTE ---
DATE: 07/01/2016 The patient feels a little bit distended and has not moved his bowels. His nasojejunal feeding tubes were held. He had a fever last night and is scheduled to have an ultrasound and CAT scan of the abdomen this morning. His temperature this morning is down. He continues on IV Zosyn. His Escherichia coli sensitives came back sensitive to everything tested, including Cipro, which would probably be what we would switch him to eventually. On physical examination he is in not acute distress, sitting in a bedside chair. He is afebrile. Abdomen is slightly distended. Bowel sounds are normal. He has a little bit of tenderness in the left upper abdomen. IMPRESSION: The patient has reached his targeted rate for Peptamen nasal jejunal feedings, but they are being held due to distention and fever last night. He is getting a CAT scan and ultrasound today. His Escherichia coli is sensitive to everything, and because of the fever I plan on continuing him on IV Zosyn for now, but will eventually be switching him probably to p.o. Cipro. Will await the results of his CAT and ultrasound. I ordered a Dulcolax suppository to see if we can get his bowels moving and hopefully if his bowels move his abdomen will be less distended and we can resume his nasojejunal feeding tubes later today.
--- NOTE | 2016-07-01 14:32 | DIAGNOSTIC IMAGING REPORT ---
ADDENDUM ADDENDUM: The addendum is generated for precise localization of the enteric tube. Portions of the tube coiled in the stomach. The tip of the tube extends in the proximal duodenum, just past the duodenal bulb. All additional findings are unchanged. Electronically signed by: Brandon Hurd M.D. 07/02/2016 9:53 AM Dictated Date/Time: 07/02/2016 9:[address] SCAN OF THE ABDOMEN AND PELVIS WITHOUT IV CONTRAST CLINICAL HISTORY: Generalized abdominal pain. COMPARISON STUDY: Prior abdominal CT scans, most recently dated 06/28/2016. TECHNIQUE: CT scan of the abdomen and pelvis was performed from the lung bases the proximal femora. Images are reviewed in the axial, sagittal, and coronal planes. IV contrast was not administered for this examination as per the referring clinician. Note that the examination was performed in significantly suboptimal fashion without IV contrast. Oral contrast was utilized. CT DOSE: 303.21 mGy.cm FINDINGS: Lower chest: The heart is normal in size and without pericardial effusion. There are coronary artery calcifications. Emphysematous change is noted at the lung bases. There is dependent atelectasis. There are small pleural effusions with bibasilar atelectasis. Liver: The unenhanced liver is normal in size, contour, and attenuation. There is no intrahepatic or ductal dilatation. Gallbladder: Surgically absent noting clips in the gallbladder fossa. Spleen: The spleen is enlarged measuring 14 cm in length. Pancreas: The unenhanced pancreas demonstrates mild glandular atrophy. A pancreatic stent is in place. The pancreatic tail abnormality seen on prior examinations is not well assessed. Mild haziness is seen around the distal pancreatic body and tail. No significant peripancreatic fluid is identified. Adrenal glands: There is nodular thickening of the adrenal glands. Kidneys: The unenhanced kidneys demonstrate cortical atrophy and are without hydronephrosis. No renal calculi are identified. Abdominal vasculature: The abdominal aorta is normal in course and caliber noting moderate to advanced atherosclerotic calcification. Bowel: An enteric tube terminates in the stomach. There are postoperative changes from sigmoid colon resection with colocolonic anastomosis. No bowel obstruction is seen. There is moderate fecal retention throughout the remainder of the colon. The appendix is not identified and reported surgically absent. Peritoneum: There is mild mesenteric edema and trace abdominopelvic ascites. No intraperitoneal free air is seen. Lymphadenopathy: None. Pelvic viscera: The prostate gland is enlarged and heterogeneous, measuring 5.4 cm transverse diameter. The bladder wall appears mildly thickened and trabeculated suggesting chronic outlet obstruction. There is a small fat-containing left inguinal hernia. Skeletal structures: The skeletal structures are osteopenic. There is mild lumbosacral spondylosis. No destructive bony lesions are seen. IMPRESSION: 1. Suboptimal examination without IV contrast. 2. Small pleural effusions have increased in size from 06/28/2016. 3. The pancreas appears mildly atrophic and a stent within the pancreatic duct is unchanged in position. The pancreatic tail abnormality seen on prior examinations is not well assessed without IV contrast. 4. There is mild haziness/stranding around the distal pancreas. Mild pancreatitis is not excluded. Correlation with clinical findings and serum lipase levels will be required. 5. Trace abdominopelvic ascites. This has modestly increased from previous. 6. Splenomegaly. 7. Additional chronic changes as above. Electronically signed by: Brandon Hurd M.D. 07/01/2016 2:30 PM Dictated Date/Time: 07/01/2016 2:21 PM
[2016-07-01] MEDS ORDERED: BISACODYL 10 MG SUPP ONE (14:39)
[2016-07-01 15:20] VITALS: BP 129/78; PULSE 53; TEMP 36.6; O2SAT 96
[2016-07-01] MEDS ORDERED: CUSTOM CENTRAL PN 1 BAG IV SCH (16:00)
[2016-07-01 17:45] LABS: BUN/CREATININE RATIO 26.3 (10-20); CALCIUM 7.8 mg/dl (8.5-10.1); CREATININE 0.59 mg/dl (0.60-1.40)
[2016-07-01 17:46] LABS: PHOSPHORUS 3.7 mg/dl (2.5-4.9); POTASSIUM 3.9 mmol/L (3.5-5.1)
[2016-07-01] MEDS: MoRPHine SULFATE 4 MG/ML 1 ML CARP\\VIAL IV PRN (19:15)
[2016-07-01] MEDS: CLONAZEPAM 0.5 MG TAB PO SCH (21:13)
[2016-07-01 23:11] VITALS: BP 130/77; PULSE 54; TEMP 37.1; O2SAT 95
[2016-07-02] MEDS: PIPERACILL/TAZOBAC IV 3.375 GM in DEXTROSE 5% 100ML 100 ML IV SCH ×2 (05:57→13:55)
[2016-07-02] MEDS: CLOTRIMAZOLE 10 MG TROCHE MT SCH ×5 (05:58→22:35)
[2016-07-02 06:59] LABS: HEMATOCRIT 30.5 % (42-52); MEAN CELL VOLUME 85.9 fL (80-100); MEAN CORPUSCULAR HEMOGLOBIN 30.1 pg (25-34); MEAN CORPUSCULAR HGB CONC 35.1 g/dl (32-36); MEAN PLATELET VOLUME 10.7 fL (7.4-10.4); PLATELET COUNT 292 K/uL (130-400); RED BLOOD COUNT 3.55 M/uL (4.7-6.1); WHITE BLOOD COUNT 10.49 K/uL (4.8-10.8)
[2016-07-02 07:14] VITALS: BP 143/81; PULSE 57; TEMP 37.2; O2SAT 91
[2016-07-02] MEDS: MoRPHine SULFATE 2 MG/ML CARP IV PRN (07:23)
[2016-07-02 07:27] LABS: BUN/CREATININE RATIO 26.3 (10-20); CALCIUM 7.8 mg/dl (8.5-10.1); CREATININE 0.57 mg/dl (0.60-1.40); MAGNESIUM 2.1 mg/dl (1.8-2.4); POTASSIUM 3.6 mmol/L (3.5-5.1)
--- NOTE | 2016-07-02 10:14 | Progress Note ---
Subjective Date of Service: Jul 02, 2016. (Oumou French PA-C) Subjective Pt evaluation today including: conversation w/ patient, conversation w/ family , physical exam, chart review, lab review, review of studies, conversation w/ technology sales consultant (Dr. Gonzales and Dr. Hurd), review of inpatient medication list Patient seen and evaluated. No acute events overnight. Patient reporting improvement in symptoms. CT imaging revealed enteric tube is coiled in stomach and ends in proximal duodenum. Reviewed [facility] notes that states tube was never advanced to jejunum due to difficulty with coiling. Since starting tube feedings his symptoms increased as lipase has been nearly doubling every day. It appears that feedings have been stimulating the pancreas as this tube is not advanced past the Ligament of Treitz. Symptoms are resolving since tube feedings held. Pt with distended abdomen with feedings and has resolved. Spoke with radiologist who reports that they cannot advance the enteric tube but can supply the fluoroscopy. Spoke with Dr. Gonzales and plan was for stent removal and attempts to relocate enteric tube by endoscope. (Oumou French PA-C) Problem List Medical Problems: (1) Cyst of pancreas Status: Acute (2) Lactic acidosis Status: Acute (3) Leukocytosis Status: Acute (4) Pancreatitis Status: Acute (5) Pancreatitis Status: Acute (6) Sepsis Status: Acute (Oumou French PA-C) Review of Systems Constitutional: No chills, No fever Respiratory: No shortness of breath Cardiac: No chest pain Abdomen: + pain (LUQ), No nausea, No vomiting Musculoskeletal: No calf pain, No swelling Male : No dysuria Skin: No rash (Oumou French PA-C) Medications Current Inpatient Medications Medications (Trade) Dose Ordered Sig/Pio Route Start Time Stop Time Status Last Admin Dose Admin Ioversol (Optiray 320) 100 ml UD PRN IV 06/28/16 18:00 07/02/16 17:59 Ondansetron HCl (Zofran Inj) 4 mg Q6H PRN IV 06/28/16 21:15 07/28/16 21:14 07/01/16 12:20 4 MG Acetaminophen (Tylenol Tab) 650 mg Q4H PRN PO 06/28/16 21:15 07/28/16 21:14 Zolpidem Tartrate (Ambien Tab) 5 mg HSZ PRN PO 06/28/16 21:15 07/28/16 21:14 Clonazepam (Klonopin Tab) 0.5 mg QPM PO 06/29/16 21:00 07/29/16 20:59 07/01/16 21:13 0.5 MG Lorazepam (Ativan Inj) 0.5 mg Q4H PRN IV 06/28/16 21:15 07/28/16 21:14 Lorazepam (Ativan Inj) 1 mg Q4H PRN IV 06/28/16 21:15 07/28/16 21:14 Morphine Sulfate (MoRPHine SULFATE INJ) 2 mg Q2H PRN IV 06/28/16 21:15 07/12/16 21:14 07/02/16 07:23 2 MG Morphine Sulfate 4 mg 4 mg Q2H PRN IV 06/28/16 21:15 07/12/16 21:14 07/02/16 14:01 4 MG Promethazine HCl 25 mg/Sodium Chloride 51 ml @ 204 mls/hr Q6H PRN IV 06/28/16 21:15 07/28/16 21:14 07/01/16 13:19 204 MLS/HR Lorazepam 0.5 mg/ Syringe 0.5 ml @ 0.5 mls/min Q4H PRN IV 06/28/16 22:15 07/28/16 22:14 Lorazepam 1 mg/ Syringe 1 ml @ 1 mls/min Q4H PRN IV 06/28/16 22:15 07/28/16 22:14 Acetaminophen 650 mg/Empty Bag 65 ml @ 260 mls/hr Q6H PRN IV 06/29/16 08:00 07/29/16 07:59 07/01/16 19:42 260 MLS/HR Dextrose (D10w) 1,000 ml @ 0 mls/hr Q0M PRN IV 06/29/16 07:45 07/29/16 07:44 Miscellaneous Information 1 ea 1 ea UD PRN N/A 06/29/16 07:45 07/29/16 07:44 Pantoprazole Sodium/Syringe (Protonix Inj/ Syringe) 10 ml @ 5 mls/min DAILY@11 IV 06/29/16 11:00 07/29/16 10:59 07/02/16 13:54 5 MLS/MIN Enteral Nutritional Formula (Peptamen 1.5) 1,000 ml UD JT 06/29/16 15:30 07/29/16 15:29 Future Hold 07/01/16 00:10 1,000 ML Clotrimazole 1 jimneez 1 jimenez [id number] MT 06/30/16 13:00 07/30/16 12:59 07/02/16 05:58 1 JIMENEZ Sodium Chloride 1,000 ml @ 80 mls/hr [id number] IV 07/02/16 08:45 08/01/16 08:44 07/02/16 10:22 80 MLS/HR Nutrition (Parenteral) (Custom Central Pn) 0 ml @ 0 mls/hr TODAY@1600 IV 07/02/16 16:00 07/03/16 15:59 Miscellaneous Information 1 ea 1 ea UD PRN N/A 07/02/16 14:45 08/01/16 14:44 Ceftriaxone Sodium/Dextrose (Rocephin Inj/D5 50ml) 70 ml @ 140 mls/hr DAILY@2200 IV 07/02/16 22:00 07/16/16 21:59 Ephedrine Sulfate (EpHEDrine SULFATE INJ) 5 mg Q5M PRN IV 07/02/16 15:00 07/02/16 20:00 Atropine Sulfate (Atropine Sulfate 0.1MG/Ml Inj) 0.5 mg Q1M PRN IV 07/02/16 15:00 07/02/16 20:00 (Oumou French PA-C) Objective Vital Signs Date Time Temp Pulse Resp B/P Pulse Ox O2 Delivery O2 Flow Rate FiO2 07/02/16 07:20 Room Air 07/02/16 07:14 37.2 57 16 143/81 91 Room Air 07/01/16 23:22 Room Air 07/01/16 23:11 37.1 54 18 130/77 95 Room Air 07/01/16 15:30 Room Air 07/01/16 15:20 36.6 53 16 129/78 96 Room Air (Oumou French PA-C) Physical Exam General Appearance: WD/WN, no apparent distress, + thin Eyes: sclerae normal ENT: hearing grossly normal Neck: supple, no JVD, trachea midline Respiratory/Chest: lungs clear, normal breath sounds, no respiratory distress, no accessory muscle use Cardiovascular: regular rate, rhythm, no gallop, no murmur Abdomen: normal bowel sounds, soft, + tenderness (LUQ) Extremities: no pedal edema, no calf tenderness Neurologic/Psychiatric: alert, oriented x 3 Skin: normal color, warm/dry (Oumou French PA-C) Laboratory Results Last 24 Hours Test 07/01/16 11:55 07/01/16 17:05 07/02/16 06:25 Bedside Glucose 117 mg/dl Sodium Level 145 mmol/L 143 mmol/L Potassium Level 3.9 mmol/L 3.6 mmol/L Chloride Level 107 mmol/L 107 mmol/L Carbon Dioxide Level 28 mmol/L 28 mmol/L Anion Gap 10.0 mmol/L 8.0 mmol/L Blood Urea Nitrogen 16 mg/dl 15 mg/dl Creatinine 0.59 mg/dl 0.57 mg/dl Est Creatinine Clear Calc Drug Dose 122.4 ml/min 125.0 ml/min Estimated GFR () 124.0 124.9 Estimated GFR (Non- 107.0 107.8 BUN/Creatinine Ratio 26.3 26.3 Random Glucose 102 mg/dl 94 mg/dl Calcium Level 7.8 mg/dl 7.8 mg/dl Phosphorus Level 3.7 mg/dl 3.0 mg/dl White Blood Count 10.49 K/uL Red Blood Count 3.55 M/uL Hemoglobin 10.7 g/dL Hematocrit 30.5 % Mean Corpuscular Volume 85.9 fL Mean Corpuscular Hemoglobin 30.1 pg Mean Corpuscular Hemoglobin Concent 35.1 g/dl RDW Standard Deviation 52.1 fL RDW Coefficient of Variation 16.4 % Platelet Count 292 K/uL Mean Platelet Volume 10.7 fL Magnesium Level 2.1 mg/dl Amylase Level 274 U/L Lipase 2273 U/L (Oumou French PA-C) Assessment and Plan Mr. Schwarz is a 65 y/o WM with PMHx of Essential Tremor, HTN, S/P Colon Resection 2/2 Diverticulitis, S/P Cholecystectomy, Gastric Erosions, and Chronic Pancreatitis who is S/P Pancreatic Duct Stent. since refeeding has had serology more in unfavorable direction Sepsis from gram negative bacteria resultant from placement of pancreatic stent - E coli in 2 of 2 blood cultures, burroughs sensitive, this is concerning as had fever on antibiotics - afebrile > 24 hours - D/C'd Zosyn will de-escalate Abx to Rocephin 1 g daily - Oral thrush, mycolex started 06/30 - Repeat BCx x 2 - pending Recurrent Pancreatitis -worsened by serology - Assessment - Review of operative report from [facility] stating enteric tube was not able to be placed in jejunum but repeat CT showing tip was in proximal duodenum. Concern for placement issue resulting increase lipase and discomfort vs stent blockage. Discussed case with Dr. Gonzales - S/P stent removal and attempts to adequately place enteric tube but was unsuccessful and currently terminates in stomach. Hypomagnesemia and Hypokalemia: RESOLVED - Replete as necessary - continue to monitor GERD:- Pantoprazole 40 mg IV daily HLD:- Simvastatin 40 mg daily HTN:- stable at this time Valsartan 160 mg daily Code Status:- FULL RESUSCITATION Disposition: - Has [facility] and [facility] established from prior admission Continued [facility] stay due to: multiple IV medications needed Discharge planning: home with home health (Oumou French, PA-C) Attending Attestation: Pt seen/examined, chart reviewed, care plan d/w CYNDI French. I agree w/ the shore components of her progress note. Events of day reviewed. Had endoscopy today to retrieve his pancreatic stent. ND tube was in the stomach and was removed (unable to be advanced to the jejunum ). Abd pain is better this evening. VSS, afebrile gen - NAD mouth - right lateral incisor is mildly loose following his endoscopy today but no other signs of trauma abd - soft, ND, minimal tenderness epigastric region, BS+, no HSM blood cx's + w/ pansensitive e. coli lipase >2000 A/P: 1. e. coli bacteremia/sepsis - likely source is enteric/pancreatic/related to recent stent; doubt PICC line as source. agree w/ narrowing abx to rocephin repeat blood cx's to ensure sterility 2. acute pancreatitis 3. h/o recurrent pancreatitis with pancreatic duct stricture s/p stent at [facility] recently - s/p retrieval of stent due to concern of stent blockage defer all management to GI 4. FEN - defer diet to GI 5. loose crown s/p endoscopy today - will need to see dentist jessica after d/c Kelly MIMS MD (Moose Mims MD)
[2016-07-02] MEDS: SODIUM CHLORIDE 0.9% 1000ML 1,000 ML IV SCH ×2 (10:22→22:08)
[2016-07-02] MEDS: PANTOprazole INJ 40 MG in SYRINGE 0 ML IV SCH (13:54)
[2016-07-02] MEDS: MoRPHine SULFATE 4 MG/ML 1 ML CARP\\VIAL IV PRN ×2 (14:01→21:45)
--- NOTE | 2016-07-02 14:30 | PROGRESS NOTE ---
DATE: 07/02/2016 SUBJECTIVE: The patient continues to have left upper quadrant pain despite having his nasogastric feeding tubes held. He is currently on peripheral TPN. He has not had a fever since Saturday evening on Zosyn and his white count remains normal; however, his lipase level has gone up over [address] scan of the abdomen yesterday showed that the pancreatic stent that was placed at [facility] by Dr. Love remains in place, but is probably not draining adequately. OBJECTIVE: GENERAL: The patient appears in no acute distress. He has nasojejunal feeding tube in the left naris. VITAL SIGNS: Blood pressure is 143/81, pulse 57, temperature is 37.2. ABDOMEN: Did have a bowel movement yesterday after a Dulcolax suppository. IMPRESSION: The patient's lipase continues to rise. I just talked about his case with Dr. Valentine and Dr. Love at [facility]. We do not believe that the rise in the lipase is due to his nasogastric feedings and the tube is not in the jejunum, but I do not think it really is impacting his lipase. I think the pancreatic stent is not draining adequately and I plan on removing the stent today to see if that improves the drainage, if not, he may need to go to [facility] to have a stricture dilated and re-stented with a longer stent. Ultimately, if that does not work, he may need to have the tail of his pancreas surgically removed. The patient will be scheduled for stent removal later today.
[2016-07-02] MEDS ORDERED: [UNRECOGNIZED DRUG - REMARK] PRN (14:45)
--- NOTE | 2016-07-02 14:46 | Endo History and Physical ---
History & Physical Date of Service: Jul 02, 2016. Chief Complaint: pancreatitis Referring Physician: Dr Valentine History of Present Illness For pancreatic stent removal Past Surgical History Hx Cardiac Surgery: No Hx Abdominal Surgery: Yes (Gallbladder, colon resection) Hx Post-Op Nausea and Vomiting: No Hx Cancer Surgery: No Hx Thoracic Surgery: No Hx Orthopedic: Yes (Back) Hx Urinary Tract Surgery: No Social History Smoking Status: Former Smoker Smokeless Tobacco Use: No Hx Substance Use: No Hx Alcohol Use: No Allergies Coded Allergies: No Known Allergies (Unverified , 06/28/16) Current Medications Reported Home Medications Medications Dose Route/Sig Max Daily Dose Days Date Category Dose Instructions Alprazolam 0.25 Mg Tab 0.25 Mg PO TID PRN 15 05/22/16 Rx [place] 5MG/325MG (Acetaminophen/Hydrocodone Bitart) Tab 1-2 Tab PO Q4H PRN 05/22/16 Rx PRN PAIN Klonopin (Clonazepam) 0.5 Mg Tab 0.5 Mg PO QPM 04/25/16 Reported Protonix (Pantoprazole Sodium) 40 Mg Tab 40 Mg PO BID 04/25/16 Reported Diovan (Valsartan) 160 Mg Tab 160 Mg PO DAILY 04/25/16 Reported Zocor (Simvastatin) 40 Mg Tab 40 Mg PO QAM 04/25/16 Reported Vital Signs Weight (Kilograms): 78.100 Height (Feet): 5 Height (Inches): 8.00 Date Time Temp Pulse Resp B/P Pulse Ox O2 Delivery O2 Flow Rate FiO2 07/02/16 14:39 37.1 56 16 138/74 97 Room Air 07/02/16 07:20 Room Air 07/02/16 07:14 37.2 57 16 143/81 91 Room Air 07/01/16 23:22 Room Air 07/01/16 23:11 37.1 54 18 130/77 95 Room Air 07/01/16 15:30 Room Air 07/01/16 15:20 36.6 53 16 129/78 96 Room Air Physical Exam General Appearance: WD/WN, + pertinent finding (NG in place) Respiratory/Chest: Respiratory effort: no dyspnea Cardiovascular: Heart Auscultation: RRR Abdomen: Inspection & Palpation: LUQ tenderness Assessment and Plan For pancreatic stent removal
[2016-07-02] MEDS ORDERED: EpHEDrine SULFATE INJ 50 MG/ML AMP IV PRN (15:00)
[2016-07-02] MEDS ORDERED: ATROPINE SULFATE 0.1 MG/ML 5ML SYR IV PRN (15:00)
--- NOTE | 2016-07-02 15:11 | Discharge Instructions ---
Endoscopy Patient Instructions Date / Procedure(s) Performed Jul 02, 2016. EGD Allergy Information Coded Allergies: No Known Allergies (Unverified , 06/28/16) Discharge Date / Findings Jul 02, 2016. Stent removal Medication Instructions Restart Stopped Medication(s): resume meds Current Inpatient Medications Medications (Trade) Dose Ordered Sig/Pio Route Start Time Stop Time Status Last Admin Dose Admin Ioversol (Optiray 320) 100 ml UD PRN IV 06/28/16 18:00 07/02/16 17:59 Ondansetron HCl (Zofran Inj) 4 mg Q6H PRN IV 06/28/16 21:15 07/28/16 21:14 07/01/16 12:20 4 MG Acetaminophen (Tylenol Tab) 650 mg Q4H PRN PO 06/28/16 21:15 07/28/16 21:14 Zolpidem Tartrate (Ambien Tab) 5 mg HSZ PRN PO 06/28/16 21:15 07/28/16 21:14 Clonazepam (Klonopin Tab) 0.5 mg QPM PO 06/29/16 21:00 07/29/16 20:59 07/01/16 21:13 0.5 MG Lorazepam (Ativan Inj) 0.5 mg Q4H PRN IV 06/28/16 21:15 07/28/16 21:14 Lorazepam (Ativan Inj) 1 mg Q4H PRN IV 06/28/16 21:15 07/28/16 21:14 Morphine Sulfate (MoRPHine SULFATE INJ) 2 mg Q2H PRN IV 06/28/16 21:15 07/12/16 21:14 07/02/16 07:23 2 MG Morphine Sulfate 4 mg 4 mg Q2H PRN IV 06/28/16 21:15 07/12/16 21:14 07/02/16 14:01 4 MG Promethazine HCl 25 mg/Sodium Chloride 51 ml @ 204 mls/hr Q6H PRN IV 06/28/16 21:15 07/28/16 21:14 07/01/16 13:19 204 MLS/HR Lorazepam 0.5 mg/ Syringe 0.5 ml @ 0.5 mls/min Q4H PRN IV 06/28/16 22:15 07/28/16 22:14 Lorazepam 1 mg/ Syringe 1 ml @ 1 mls/min Q4H PRN IV 06/28/16 22:15 07/28/16 22:14 Acetaminophen 650 mg/Empty Bag 65 ml @ 260 mls/hr Q6H PRN IV 06/29/16 08:00 07/29/16 07:59 07/01/16 19:42 260 MLS/HR Dextrose (D10w) 1,000 ml @ 0 mls/hr Q0M PRN IV 06/29/16 07:45 07/29/16 07:44 Miscellaneous Information 1 ea 1 ea UD PRN N/A 06/29/16 07:45 07/29/16 07:44 Pantoprazole Sodium/Syringe (Protonix Inj/ Syringe) 10 ml @ 5 mls/min DAILY@11 IV 06/29/16 11:00 07/29/16 10:59 07/02/16 13:54 5 MLS/MIN Enteral Nutritional Formula (Peptamen 1.5) 1,000 ml UD JT 06/29/16 15:30 07/29/16 15:29 Future Hold 07/01/16 00:10 1,000 ML Clotrimazole 1 jimenez 1 jimenez [id number] MT 06/30/16 13:00 07/30/16 12:59 07/02/16 05:58 1 JIMENEZ Nutrition (Parenteral) 0 ml @ 0 mls/hr TODAY@1600 IV 07/01/16 16:00 07/02/16 15:59 07/01/16 15:44 68.33 MLS/HR Sodium Chloride 1,000 ml @ 80 mls/hr [id number] IV 07/02/16 08:45 08/01/16 08:44 07/02/16 10:22 80 MLS/HR Nutrition (Parenteral) (Custom Central Pn) 0 ml @ 0 mls/hr TODAY@1600 IV 07/02/16 16:00 07/03/16 15:59 Provider Instructions Activity Restrictions - No exercising or heavy lifting for 24 hours. - Do not drink alcohol the day of the procedure. - Do not drive a car or operate machinery until the day after the procedure. - Do not make any important decisions or sign important papers in 24 hours after the procedure. Following Day: - Return to full activity which may include returning to work/school. Diet Start your diet with liquids and light foods (jello, soup, juice, toast). Then eat your usual diet if not nauseated. Treatment For Common After Affects For mild abdominal pain, bloating, or excessive gas: - Rest - Eat lightly - Lie on right side Follow-Up Information Follow-up with as scheduled Anesthesia Information What You Should Know You have had a procedure that required some medicine to reduce anxiety and discomfort. This treatment is called moderate sedation. After receiving the treatment, you may be sleepy, but you will be able to breathe on your own. The effects of the treatment may last for several hours. Follow these instructions along with Activity/Diet recommendations noted above: * Do NOT do anything where dizziness or clumsiness would be dangerous. * Rest quietly at home today, then you can be up and about tomorrow. * Have a responsible person stay with you the rest of today. * You may have had an I.V. today. If so, you may take the dressing off later today. Recommendations Call your doctor if: * Trouble breathing * Continuous vomiting for more than 24 hours * Temperature above 101 degrees * Severe abdominal pain or bloating * Pain not relieved by pain medicine ordered * There is increased drainage or redness from any incision * A large amount of rectal bleeding greater than 2-3 tablespoons. (If you had a polyp/s removed or have hemorrhoids, a small amount of blood - from the rectum is to be expected.) * You have any unanswered questions or concerns. IN THE EVENT OF A SERIOUS EMERGENCY, GO TO THE NEAREST EMERGENCY ROOM Your discharge instructions were prepared by provider Abdirizak Gonzales. Patient Instructions Signature Page Papito Schwarz Patient (or Guardian) Signature/Date: I have read and understand the instructions given to me by my caregivers. Caregiver/RN/Doctor Signature/Date: The above-named patient and/or guardian has received patient instructions on this date. + Original Patient Signature Page (only) stays with chart. Please make copy for patient.
--- NOTE | 2016-07-02 15:16 | GI REPORT ---
Procedure Date: 07/02/2016 2:46 PM Procedure: Upper GI endoscopy Indications: Foreign body in the small bowel Medicines: Propofol total dose 150 mg IV, Lidocaine 80 mg IV Complications: No immediate complications. Estimated Blood Loss: Estimated blood loss: none. Procedure: Pre-Anesthesia Assessment: - Prior to the procedure, a History and Physical was performed, and patient medications, allergies and sensitivities were reviewed. The patient's tolerance of previous anesthesia was reviewed. - The risks and benefits of the procedure and the sedation options and risks were discussed with the patient. All questions were answered and informed consent was obtained. After obtaining informed consent, the endoscope was passed under direct vision. Throughout the procedure, the patient's blood pressure, pulse, and oxygen saturations were monitored continuously. The scope was introduced through the mouth, and advanced to the second part of duodenum. The upper GI endoscopy was accomplished without difficulty. The patient tolerated the procedure well. Findings: A previously placed pancreatic stent was seen in the ampulla. Stent removal was accomplished with a snare. Estimated blood loss: none. The examined esophagus was normal. A gastric tube was found in the gastric antrum. Impression: - Pancreatic stent in the duodenum. Removed. - Normal esophagus. - A gastric tube was found in the stomach. Recommendation: - [facility]. - Continue present medications. Abdirizak Gonzales M.D. Abdirizak Gonzales MD 07/02/2016 3:15:38 PM This report has been signed electronically. Note Initiated On: 07/02/2016 2:46 PM
[2016-07-02] MEDS ORDERED: PROPOFOL IV EMULSION 10 MG/ML 20 ML VIAL IV ONE (15:19)
[2016-07-02] MEDS ORDERED: LIDOCAINE HCL 2% 2 ML VIAL (20MG/ML) ONE (15:19)
--- NOTE | 2016-07-02 15:23 | Anesthesiology Progress Note ---
Anesthesia Post Op Note Date & Time Jul 02, 2016 at 15:23 Vital Signs Pain Intensity: 5.0 Vital Signs Past 12 Hours Date Time Temp Pulse Resp B/P Pulse Ox O2 Delivery O2 Flow Rate FiO2 07/02/16 14:39 37.1 56 16 138/74 97 Room Air 07/02/16 07:20 Room Air 07/02/16 07:14 37.2 57 16 143/81 91 Room Air Notes Mental Status: alert / awake / arousable, participated in evaluation Pt Amnestic to Procedure: Yes Nausea / Vomiting: adequately controlled Pain: adequately controlled Airway Patency, RR, SpO2: stable & adequate BP & HR: stable & adequate Hydration State: stable & adequate Anesthetic Complications: no major complications apparent
--- NOTE | 2016-07-02 15:28 | PROGRESS NOTE ---
DATE: 07/02/2016 The patient was brought to the endoscopy center and his pancreatic stent was removed with snare without complication. The tip of his nasojejunal tube was found to be located in the antrum of the stomach. I tried to advance it into the duodenum which I was able to do but as soon as I withdrew the scope the tube came back into the stomach. There was no inflammation in the stomach or the esophagus. IMPRESSION: Pancreatic stent has been removed. He can resume his nasojejunal feedings tomorrow and hopefully wean off the TPN. Will need to monitor him and if he does not improve, we may need to transfer him down to [place] for further pancreatic evaluation.
[2016-07-02 16:00] VITALS: BP 126/78; PULSE 65; O2SAT 92
[2016-07-02] MEDS ORDERED: CUSTOM CENTRAL PN 1 BAG IV SCH (16:00)
[2016-07-02 21:42] VITALS: BP 138/79
[2016-07-02] MEDS: ONDANSETRON INJ 2 MG/ML 2 ML VIAL IV PRN (21:45)
[2016-07-02] MEDS: CLONAZEPAM 0.5 MG TAB PO SCH (21:46)
[2016-07-02] MEDS: CEFTRIAXONE SOD INJ 2000 MG in DEXTROSE 5% 50ML IV SCH (22:08)
[2016-07-02 23:00] VITALS: BP 117/82; PULSE 82; TEMP 36.8; O2SAT 94
[2016-07-03] MEDS: CLOTRIMAZOLE 10 MG TROCHE MT SCH ×5 (06:27→22:51)
[2016-07-03 06:34] LABS: BASO % 0.3 %; BASO ABS # 0.03 K/uL (0-0.2); COMPLETE YES; EOS % 2.8 %; HEMATOCRIT 31.2 % (42-52); IG% 1.2 %; LYMPH % 14.2 %; LYMPH ABS # 1.48 K/uL (1.2-3.4); MEAN CELL VOLUME 87.4 fL (80-100); MEAN CORPUSCULAR HEMOGLOBIN 30.3 pg (25-34); MEAN CORPUSCULAR HGB CONC 34.6 g/dl (32-36); MEAN PLATELET VOLUME 10.7 fL (7.4-10.4); NEUT % 72.5 %; PLATELET COUNT 364 K/uL (130-400); RED BLOOD COUNT 3.57 M/uL (4.7-6.1); WHITE BLOOD COUNT 10.43 K/uL (4.8-10.8)
[2016-07-03 07:09] LABS: BUN/CREATININE RATIO 24.7 (10-20); CALCIUM 8.1 mg/dl (8.5-10.1); CREATININE 0.57 mg/dl (0.60-1.40); MAGNESIUM 2.3 mg/dl (1.8-2.4); POTASSIUM 3.6 mmol/L (3.5-5.1)
[2016-07-03 07:16] VITALS: BP 150/84; PULSE 57; TEMP 36.7; O2SAT 93
[2016-07-03] MEDS: PANTOprazole INJ 40 MG in SYRINGE 0 ML IV SCH (10:04)
[2016-07-03] MEDS: SODIUM CHLORIDE 0.9% 1000ML 1,000 ML IV SCH ×2 (10:06→21:30)
[2016-07-03 11:45] VITALS: BP 150/81; PULSE 55; TEMP 36.9; O2SAT 96
--- NOTE | 2016-07-03 15:33 | Progress Note ---
Subjective Date of Service: Jul 03, 2016. (Oumou French PA-C) Subjective Pt evaluation today including: conversation w/ patient, conversation w/ family , physical exam, chart review, lab review, review of studies, review of inpatient medication list Patient seen and evaluated. Reports loosened tooth after procedure yesterday. R lateral incisor fell out while using incentive spirometer and has been collected. NG tube also coiled in mouth and was completely removed and not reinserted. Appreciate GI perspective on implementing feedings. Lipase mildly increased from last draw at 2329 from 2273 Pain in abdomen reduced. Denies fever/chills. (Oumou French PA-C) Problem List Medical Problems: (1) Cyst of pancreas Status: Acute (2) Lactic acidosis Status: Acute (3) Leukocytosis Status: Acute (4) Pancreatitis Status: Acute (5) Pancreatitis Status: Acute (6) Sepsis Status: Acute (Oumou French, ISABELA) Review of Systems Constitutional: No chills, No fever Respiratory: No shortness of breath Cardiac: No chest pain Abdomen: + pain (improving), No constipation, No diarrhea, No nausea, No vomiting Musculoskeletal: No swelling Male : No dysuria (Oumou French PA-C) Medications Current Inpatient Medications Medications (Trade) Dose Ordered Sig/Pio Route Start Time Stop Time Status Last Admin Dose Admin Ondansetron HCl (Zofran Inj) 4 mg Q6H PRN IV 06/28/16 21:15 07/28/16 21:14 07/02/16 21:45 4 MG Acetaminophen (Tylenol Tab) 650 mg Q4H PRN PO 06/28/16 21:15 07/28/16 21:14 Zolpidem Tartrate (Ambien Tab) 5 mg HSZ PRN PO 06/28/16 21:15 07/28/16 21:14 Clonazepam (Klonopin Tab) 0.5 mg QPM PO 06/29/16 21:00 07/29/16 20:59 07/02/16 21:46 0.5 MG Lorazepam (Ativan Inj) 0.5 mg Q4H PRN IV 06/28/16 21:15 07/28/16 21:14 Lorazepam (Ativan Inj) 1 mg Q4H PRN IV 06/28/16 21:15 07/28/16 21:14 Morphine Sulfate (MoRPHine SULFATE INJ) 2 mg Q2H PRN IV 06/28/16 21:15 07/12/16 21:14 07/02/16 07:23 2 MG Morphine Sulfate 4 mg 4 mg Q2H PRN IV 06/28/16 21:15 07/12/16 21:14 07/02/16 21:45 4 MG Promethazine HCl 25 mg/Sodium Chloride 51 ml @ 204 mls/hr Q6H PRN IV 06/28/16 21:15 07/28/16 21:14 07/01/16 13:19 204 MLS/HR Lorazepam 0.5 mg/ Syringe 0.5 ml @ 0.5 mls/min Q4H PRN IV 06/28/16 22:15 07/28/16 22:14 Lorazepam 1 mg/ Syringe 1 ml @ 1 mls/min Q4H PRN IV 06/28/16 22:15 07/28/16 22:14 Acetaminophen 650 mg/Empty Bag 65 ml @ 260 mls/hr Q6H PRN IV 06/29/16 08:00 07/29/16 07:59 07/01/16 19:42 260 MLS/HR Dextrose (D10w) 1,000 ml @ 0 mls/hr Q0M PRN IV 06/29/16 07:45 07/29/16 07:44 Miscellaneous Information 1 ea 1 ea UD PRN N/A 06/29/16 07:45 07/29/16 07:44 Pantoprazole Sodium/Syringe (Protonix Inj/ Syringe) 10 ml @ 5 mls/min DAILY@11 IV 06/29/16 11:00 07/29/16 10:59 07/03/16 10:04 5 MLS/MIN Enteral Nutritional Formula (Peptamen 1.5) 1,000 ml UD JT 06/29/16 15:30 07/29/16 15:29 Future Hold 07/01/16 00:10 1,000 ML Clotrimazole 1 jimenez 1 jimenez [id number] MT 06/30/16 13:00 07/30/16 12:59 07/03/16 10:04 1 JIMENEZ Sodium Chloride 1,000 ml @ 80 mls/hr [id number] IV 07/02/16 08:45 08/01/16 08:44 07/03/16 10:06 80 MLS/HR Nutrition (Parenteral) (Custom Central Pn) 0 ml @ 0 mls/hr TODAY@1600 IV 07/02/16 16:00 07/03/16 15:59 07/02/16 16:20 68.33 MLS/HR Miscellaneous Information 1 ea 1 ea UD PRN N/A 07/02/16 14:45 08/01/16 14:44 Ceftriaxone Sodium 2000 mg/ Dextrose 70 ml @ 140 mls/hr DAILY@2200 IV 07/02/16 22:00 07/16/16 21:59 07/02/16 22:08 140 MLS/HR Nutrition (Parenteral) (Custom Central Pn) 0 ml @ 0 mls/hr TODAY@1600 IV 07/03/16 16:00 07/04/16 15:59 (Oumou French PA-C) Objective Vital Signs Date Time Temp Pulse Resp B/P Pulse Ox O2 Delivery O2 Flow Rate FiO2 07/03/16 07:16 36.7 57 20 150/84 93 Room Air 07/02/16 23:49 Room Air 07/02/16 23:00 36.8 82 18 117/82 94 Room Air 07/02/16 21:42 138/79 07/02/16 16:00 92 Room Air 07/02/16 16:00 65 18 126/78 92 Room Air 07/02/16 15:45 59 18 148/76 94 Room Air 07/02/16 15:30 64 18 136/73 95 Room Air 07/02/16 15:13 62 18 134/72 97 Room Air 07/02/16 14:39 37.1 56 16 138/74 97 Room Air (Oumou French PA-C) Physical Exam General Appearance: WD/WN, no apparent distress, + thin Eyes: sclerae normal ENT: hearing grossly normal Neck: supple, no JVD, trachea midline Respiratory/Chest: lungs clear, normal breath sounds, no respiratory distress, no accessory muscle use Cardiovascular: regular rate, rhythm, no gallop, no murmur Abdomen: soft, + abnormal bowel sounds (hypoactive), + tenderness (LUQ) Extremities: no pedal edema, no calf tenderness Neurologic/Psychiatric: alert, oriented x 3 Skin: normal color, warm/dry (Oumou French PA-C) Laboratory Results Last 24 Hours Test 07/02/16 18:20 07/03/16 05:55 Bedside Glucose 86 mg/dl White Blood Count 10.43 K/uL Red Blood Count 3.57 M/uL Hemoglobin 10.8 g/dL Hematocrit 31.2 % Mean Corpuscular Volume 87.4 fL Mean Corpuscular Hemoglobin 30.3 pg Mean Corpuscular Hemoglobin Concent 34.6 g/dl Platelet Count 364 K/uL Mean Platelet Volume 10.7 fL Neutrophils (%) (Auto) 72.5 % Lymphocytes (%) (Auto) 14.2 % Monocytes (%) (Auto) 9.0 % Eosinophils (%) (Auto) 2.8 % Basophils (%) (Auto) 0.3 % Neutrophils # (Auto) 7.56 K/uL Lymphocytes # (Auto) 1.48 K/uL Monocytes # (Auto) 0.94 K/uL Eosinophils # (Auto) 0.29 K/uL Basophils # (Auto) 0.03 K/uL RDW Standard Deviation 54.1 fL RDW Coefficient of Variation 16.7 % Immature Granulocyte % (Auto) 1.2 % Immature Granulocyte # (Auto) 0.13 K/uL Sodium Level 144 mmol/L Potassium Level 3.6 mmol/L Chloride Level 108 mmol/L Carbon Dioxide Level 27 mmol/L Anion Gap 9.0 mmol/L Blood Urea Nitrogen 14 mg/dl Creatinine 0.57 mg/dl Est Creatinine Clear Calc Drug Dose 125.0 ml/min Estimated GFR () 124.9 Estimated GFR (Non- 107.8 BUN/Creatinine Ratio 24.7 Random Glucose 93 mg/dl Calcium Level 8.1 mg/dl Magnesium Level 2.3 mg/dl Amylase Level 321 U/L Lipase 2329 U/L (Oumou French PA-C) Assessment and Plan Mr. Schwarz is a 65 y/o WM with PMHx of Essential Tremor, HTN, S/P Colon Resection 2/2 Diverticulitis, S/P Cholecystectomy, Gastric Erosions, and Chronic Pancreatitis who is S/P Pancreatic Duct Stent. since refeeding has had serology more in unfavorable direction Sepsis from gram negative bacteria resultant from placement of pancreatic stent - E coli in 2 of 2 blood cultures, burroughs sensitive, this is concerning as had fever on antibiotics - afebrile > 48 hours at this time - Rocephin 1 g daily - Oral thrush, mycolex started 06/30 - Repeat BCx x 2 - pending Recurrent Pancreatitis - Worsened by Serology - S/P Stent Removal 07/02 - Assessment - unsuccessful advancement on enteric tube 07/02. Patient had tube coiled in mouth and was completely removed. R lateral incisor fell out. -- Lipase has markedly increased over past couple days but only slight increase noted this AM - 2328 from 2272 - Continue TPN at current time - appreciate GI recommendations for advancement of diet in setting of pancreatitis - may need transfer to [place]? -- Patient is not in favor of tube replacement and would like to transfer to [place] if further intervention can be instituted. - Trend Lipase - NSS 80 mL/hr Hypomagnesemia and Hypokalemia: RESOLVED - Replete as necessary - continue to monitor GERD: - Pantoprazole 40 mg IV daily Code Status:- FULL RESUSCITATION Disposition: - Has [facility] and [facility] established from prior admission Continued [facility] stay due to: multiple IV medications needed Discharge planning: home with home health (Oumou French, P[facility]) Attending Attestation: Pt seen/examined, chart reviewed, care plan d/w CYNDI French. I agree w/ the shore components of her progress note. Abd pain is resolved today. he remains NPO. GI has evaluated and has been in touch with GI at [place] to determine best course of action. Loose crown has fallen out last evening. requests something for his essential tremor; cannot tolerate inderal. VSS, afebrile, BPs mildly high gen - NAD mouth - right lateral incisor is now absent abd - soft, NT, ND, BS+, no HSM ext - RUE PICC clean neuro - essential tremor of both hands/arms repeat blood cx's negative BMP nl lipase 2300 A/P: 1. e. coli bacteremia/sepsis - likely source is enteric/pancreatic/related to recent stent; doubt PICC line as source. day #6 of antibiotics today. will need 14 days of therapy currently on IV rocephin can likely change to PO cipro soon repeat blood cx's neg suggesting blood is now sterile 2. acute pancreatitis - NPO, IVF, daily lipase 3. h/o recurrent pancreatitis with pancreatic duct stricture s/p stent at [facility] recently - s/p retrieval of stent due to concern of stent blockage defer all management to GI may need transfer back to [facility] for repeat stent and/or surgery 4. FEN - NPO, continue IVF, repeat lytes in am 5. loose crown - s/p tooth now absent; tooth has been saved; needs to see dental jessica 6. essential tremor - start primidone 25mg BID Kelly MIMS MD (Moose Mims MD)
[2016-07-03 15:35] VITALS: BP 154/84; PULSE 55; TEMP 36.8; O2SAT 96
[2016-07-03] MEDS ORDERED: CUSTOM CENTRAL PN 1 BAG IV SCH (16:00)
[2016-07-03] MEDS: CLONAZEPAM 0.5 MG TAB PO SCH (20:40)
[2016-07-03] MEDS: MoRPHine SULFATE 4 MG/ML 1 ML CARP\\VIAL IV PRN (21:28)
[2016-07-03] MEDS: CEFTRIAXONE SOD INJ 2000 MG in DEXTROSE 5% 50ML IV SCH (21:30)
[2016-07-03 23:15] VITALS: BP 151/75; PULSE 49; TEMP 36.7; O2SAT 95
--- NOTE | 2016-07-04 07:07 | GASTROENTEROLOGY PROGRESS NOTE ---
DATE: 07/03/2016 The patient was seen walking in the hallway with his . He continues with TPN. The patient has abdominal pain mostly with [id number] inspiration. He is maintained on ice chips and TPN currently. The NG tube which had migrated back to the stomach was actually removed last night as it regurgitated back to the oral cavity. MEDICATIONS: TPN, Rocephin, Mycelex troches, Klonopin, pantoprazole, acetaminophen p.r.n., Ativan p.r.n., Zofran, morphine. REVIEW OF SYSTEMS: Otherwise noncontributory. The patient denies any nausea or vomiting at the present time. Has no lower abdominal pain, changes in stool habit, dysuria or hematuria. PHYSICAL EXAMINATION: VITAL SIGNS: Afebrile at 36.8, blood pressure 154/84 and heart rate is 55 with respirations of 18, pulse ox 96% on room air. GENERAL: The patient is awake, alert and oriented x3. Sclerae anicteric. Oral mucosa is slightly parched. HEART: Normal S1, S2. LUNGS: Clear to auscultation. ABDOMEN: Soft, mildly tender in the left upper quadrant without rebound or guarding. There is no evidence of abdominal distention or shifting dullness. EXTREMITIES: Without edema. RECTAL: Deferred. IMPRESSION: The patient with pancreatic duct stent removed on Saturday by Dr. Gonzales and has at the present time lost NG/J access. I spoke with patient and his at length regarding options which include slowing advancing diet and observing response to meals as well as biochemistries. In addition a repeat ERCP with attempts of dilation, a stent placement with the proximal end more proximally located above the stricture in the tail region. Last and perhaps most definitive is surgical approach to remove the pancreatic tail section. The patient is concerned with repeated intervention by endoscopy as an endpoint is not known and the retirement response may not be advantageous. In addition, NJ tube feeding although preferable is also something that he is apprehensive about at this time. I made the following recommendations. We will continue the current antibiotic coverage, TPN, and we will discuss with Dr. Sridhar Vela at [facility] regarding the options discussed as well as whether a reattempt or ERCP and stent placement with pancreatic duct dilation is reasonable. Alternatively, I will also contact Dr. Herrmann to pursue surgical approaches. The patient continued to ambulate. At some point, slowly initiating oral intake may be reasonable and monitoring for patient's tolerance. All questions answered. Further recommendation to follow. Addendum: I spoke with Dr. Sridhar Vela from [facility] at approximately 6:30 p.m. I discussed patient's current status and that the pancreatic duct stent was removed, and that the NG tube has become dislodged and also the NJ tube has been dislodged and also removed. We again discussed all of the options that include reattempting ERCP with stent placement and possible surgical evaluation. I also addressed with him the patient's concerns offered to me about the likely short-term and long-term success of endoscopic management. We agreed that perhaps an evaluation by surgery with Dr. Herrmann may be prudent at this time and I will message Dr. Herrmann to review the available imaging studies from [facility] and see if we can have an outpatient visit to discuss surgical approaches to this or if an endoscopic approach should be reattempted. I will discuss this with patient on Saturday. SANDRA
[2016-07-04 07:12] VITALS: BP 162/81; PULSE 54; TEMP 36.8; O2SAT 93
[2016-07-04] MEDS: CLOTRIMAZOLE 10 MG TROCHE MT SCH ×5 (07:18→23:00)
[2016-07-04 07:56] VITALS: BP 129/76; PULSE 64; TEMP 37; O2SAT 92
[2016-07-04 08:09] LABS: BUN/CREATININE RATIO 27.3 (10-20); CALCIUM 8.6 mg/dl (8.5-10.1); CREATININE 0.53 mg/dl (0.60-1.40); MAGNESIUM 2.5 mg/dl (1.8-2.4); POTASSIUM 3.9 mmol/L (3.5-5.1)
[2016-07-04 08:20] LABS: PHOSPHORUS 2.9 mg/dl (2.5-4.9)
[2016-07-04] MEDS: SODIUM CHLORIDE 0.9% 1000ML 1,000 ML IV SCH (08:22)
[2016-07-04] MEDS ORDERED: PANCREAZE (LIPASE 10,500U) CAP PO PRN (09:30)
[2016-07-04 09:37] VITALS: O2SAT 92
[2016-07-04] MEDS: PANCREAZE (LIPASE 10,500U) CAP PO SCH ×3 (09:53→18:01)
[2016-07-04] MEDS: PANTOprazole INJ 40 MG in SYRINGE 0 ML IV SCH (09:54)
[2016-07-04] MEDS: VALSARTAN 80 MG TAB PO SCH (09:54)
[2016-07-04] MEDS: PRIMIDONE 50 MG TAB PO SCH ×2 (09:54→21:03)
[2016-07-04 15:10] VITALS: BP 133/78; PULSE 54; TEMP 36.7; O2SAT 98
[2016-07-04] MEDS ORDERED: CUSTOM CENTRAL PN 1 BAG IV SCH (16:00)
--- NOTE | 2016-07-04 16:20 | Progress Note ---
Subjective Date of Service: Jul 04, 2016. (Oumou French PA-C) Subjective Pt evaluation today including: conversation w/ patient, physical exam, chart review, lab review, review of inpatient medication list Patient seen and evaluated. No acute events overnight. Attempted applesauce today as diet as been advanced. Reporting improvement in overall pain and reports no fever/chills Is interested in transfer to [place] for more permanent intervention as he would like to avoid enteric took and continued endoscopies (Oumou French PA-C) Problem List Medical Problems: (1) Cyst of pancreas Status: Acute (2) Lactic acidosis Status: Acute (3) Leukocytosis Status: Acute (4) Pancreatitis Status: Acute (5) Pancreatitis Status: Acute (6) Sepsis Status: Acute (Oumou French PA-C) Review of Systems Constitutional: No chills, No fever Respiratory: No cough, No shortness of breath Cardiac: No chest pain Abdomen: + pain (LUQ), No constipation, No diarrhea, No nausea, No vomiting Musculoskeletal: No swelling Male : No dysuria Endo: No fatigue Skin: No rash (Oumou French PA-C) Medications Current Inpatient Medications Medications (Trade) Dose Ordered Sig/Pio Route Start Time Stop Time Status Last Admin Dose Admin Ondansetron HCl (Zofran Inj) 4 mg Q6H PRN IV 06/28/16 21:15 07/28/16 21:14 07/02/16 21:45 4 MG Acetaminophen (Tylenol Tab) 650 mg Q4H PRN PO 06/28/16 21:15 07/28/16 21:14 Zolpidem Tartrate (Ambien Tab) 5 mg HSZ PRN PO 06/28/16 21:15 07/28/16 21:14 Clonazepam (Klonopin Tab) 0.5 mg QPM PO 06/29/16 21:00 07/29/16 20:59 07/03/16 20:40 0.5 MG Lorazepam (Ativan Inj) 0.5 mg Q4H PRN IV 06/28/16 21:15 07/28/16 21:14 Lorazepam (Ativan Inj) 1 mg Q4H PRN IV 06/28/16 21:15 07/28/16 21:14 Morphine Sulfate (MoRPHine SULFATE INJ) 2 mg Q2H PRN IV 06/28/16 21:15 07/12/16 21:14 07/02/16 07:23 2 MG Morphine Sulfate 4 mg 4 mg Q2H PRN IV 06/28/16 21:15 07/12/16 21:14 07/03/16 21:28 4 MG Promethazine HCl 25 mg/Sodium Chloride 51 ml @ 204 mls/hr Q6H PRN IV 06/28/16 21:15 07/28/16 21:14 07/01/16 13:19 204 MLS/HR Lorazepam 0.5 mg/ Syringe 0.5 ml @ 0.5 mls/min Q4H PRN IV 06/28/16 22:15 07/28/16 22:14 Lorazepam 1 mg/ Syringe 1 ml @ 1 mls/min Q4H PRN IV 06/28/16 22:15 07/28/16 22:14 Acetaminophen 650 mg/Empty Bag 65 ml @ 260 mls/hr Q6H PRN IV 06/29/16 08:00 07/29/16 07:59 07/01/16 19:42 260 MLS/HR Dextrose (D10w) 1,000 ml @ 0 mls/hr Q0M PRN IV 06/29/16 07:45 07/29/16 07:44 Miscellaneous Information 1 ea 1 ea UD PRN N/A 06/29/16 07:45 07/29/16 07:44 Pantoprazole Sodium/Syringe (Protonix Inj/ Syringe) 10 ml @ 5 mls/min DAILY@11 IV 06/29/16 11:00 07/29/16 10:59 07/04/16 09:54 5 MLS/MIN Enteral Nutritional Formula (Peptamen 1.5) 1,000 ml UD JT 06/29/16 15:30 07/29/16 15:29 Future Hold 07/01/16 00:10 1,000 ML Clotrimazole 1 jimenez 1 jimenez [id number] MT 06/30/16 13:00 07/30/16 12:59 07/04/16 14:27 1 JIMENEZ Sodium Chloride (Nss 1000ml) 1,000 ml @ 80 mls/hr [id number] IV 07/02/16 08:45 08/01/16 08:44 1/18/17 08:22 80 MLS/HR Miscellaneous Information 1 ea 1 ea UD PRN N/A 07/02/16 14:45 08/01/16 14:44 Ceftriaxone Sodium 2000 mg/ Dextrose 70 ml @ 140 mls/hr DAILY@2200 IV 07/02/16 22:00 07/13/16 23:59 07/03/16 21:30 140 MLS/HR Nutrition (Parenteral) (Custom Central Pn) 0 ml @ 0 mls/hr TODAY@1600 IV 07/03/16 16:00 07/04/16 15:59 07/03/16 16:30 56.04 MLS/HR Primidone (Mysoline Tab) 25 mg BID PO 07/04/16 09:00 08/03/16 08:59 07/04/16 09:54 25 MG Valsartan (Diovan Tab) 160 mg QAM PO 07/04/16 09:00 08/03/16 08:59 07/04/16 09:54 160 MG Amylase/Lipase/ Protease (Pancreaze (Lipase 10,500U) Cap) 2 cap TIDM PO 07/04/16 09:30 08/03/16 09:29 07/04/16 13:08 2 CAP Amylase/Lipase/ Protease give 1 capsule for sm... PRN PRN PO 07/04/16 09:30 08/03/16 09:29 Nutrition (Parenteral) (Custom Central Pn) 0 ml @ 0 mls/hr TODAY@1600 IV 07/04/16 16:00 07/05/16 15:59 (Oumou French PA-C) Objective Vital Signs Date Time Temp Pulse Resp B/P Pulse Ox O2 Delivery O2 Flow Rate FiO2 07/04/16 15:10 36.7 54 18 133/78 98 Room Air 07/04/16 09:37 92 Room Air 07/04/16 08:41 Room Air 07/04/16 07:56 37.0 64 22 129/76 92 Room Air 07/04/16 07:12 36.8 54 16 162/81 93 Room Air 07/04/16 00:02 Room Air 07/03/16 23:15 36.7 49 20 151/75 95 Room Air 07/03/16 16:05 Room Air (Oumou French PA-C) Physical Exam General Appearance: WD/WN, no apparent distress, + thin Eyes: sclerae normal ENT: hearing grossly normal, + pertinent finding (R incisor crown removed) Neck: supple, no JVD, trachea midline Respiratory/Chest: lungs clear, normal breath sounds, no respiratory distress, no accessory muscle use Cardiovascular: regular rate, rhythm, no gallop, no murmur Abdomen: normal bowel sounds, non tender, soft Extremities: no pedal edema, no calf tenderness Neurologic/Psychiatric: alert, oriented x 3 Skin: normal color, warm/dry (Oumou French, CALDERONC) Laboratory Results Last 24 Hours Test 07/04/16 06:45 Sodium Level 144 mmol/L Potassium Level 3.9 mmol/L Chloride Level 111 mmol/L Carbon Dioxide Level 26 mmol/L Anion Gap 7.0 mmol/L Blood Urea Nitrogen 14 mg/dl Creatinine 0.53 mg/dl Est Creatinine Clear Calc Drug Dose 133.1 ml/min Estimated GFR () 128.7 Estimated GFR (Non- 111.0 BUN/Creatinine Ratio 27.3 Random Glucose 95 mg/dl Calcium Level 8.6 mg/dl Phosphorus Level 2.9 mg/dl Magnesium Level 2.5 mg/dl Total Bilirubin 0.5 mg/dl Aspartate Amino Transf (AST/SGOT) 51 U/L Alanine Aminotransferase (ALT/SGPT) 145 U/L Alkaline Phosphatase 346 U/L Amylase Level 326 U/L Lipase 2554 U/L (Oumou French, CALDERONC) Assessment and Plan Mr. Schwarz is a 65 y/o WM with PMHx of Essential Tremor, HTN, S/P Colon Resection 2/2 Diverticulitis, S/P Cholecystectomy, Gastric Erosions, and Chronic Pancreatitis who is S/P Pancreatic Duct Stent. Since refeeding has had serology more in unfavorable direction Sepsis from gram negative bacteria resultant from placement of pancreatic stent : ANTIBIOTIC DAY #7 - E coli in 2 of 2 blood cultures, burroughs sensitive, this is concerning as had fever on antibiotics - afebrile > 48 hours at this time - Rocephin 1 g daily - can possible convert to po medications in AM - Repeat BCx x 2 - NGTD Recurrent Pancreatitis - Worsened by Serology - S/P Stent Removal 07/02 - Assessment - diet has been advanced and he has been able to eat small amounts and currently tolerating - will monitor -- Lipase continues to gradually increase - Continue TPN at current time with taper as oral intake improves - add Creon - Trend Lipase - NSS 80 mL/hr - GI Following - patient would like transfer to [place] and more permanent approach to pancreatitis - will await discussion with [facility] and would be suitable for transfer Hypomagnesemia and Hypokalemia: RESOLVED - Replete as necessary - continue to monitor GERD: - Pantoprazole 40 mg IV daily Essential Tremor: - Primidone 25 mg BID Code Status:- FULL RESUSCITATION Disposition: - Possible transfer to [place] for further surgical intervention vs new stent - Has [facility] and HHS established from prior admission Continued [facility] stay due to: multiple IV medications needed Discharge planning: home with home health (Oumou French, PA-C) Attending Attestation: Pt seen/examined, chart reviewed, care plan d/w CYNDI French. I agree w/ the shore components of her progress note. No abd pain today. Had bowel movement yesterday. Denies nausea or emesis. Started on diet and tolerated this today w/o discomfort. Had mild sedation with primidone. VSS, afebrile, BPs mildly high gen - NAD mouth - right lateral incisor absent but is otherwise normal heart - RRR, s1, s2 lungs - CTA b/l abd - soft, NT, ND, BS+, no HSM ext - RUE PICC clean neuro - essential tremor of both hands/arms - no change repeat blood cx's negative BMP nl lipase 2554 A/P: 1. e. coli bacteremia/sepsis - likely source is enteric/pancreatic/related to recent stent; doubt PICC line as source. day #7 of antibiotics today. will need 14 days of therapy currently on IV rocephin chance to PO Cipro 500mg BID tomorrow repeat blood cx's neg suggesting blood is now sterile 2. acute pancreatitis - resolved clinically; diet resumed. 3. h/o recurrent pancreatitis with pancreatic duct stricture s/p stent at [facility] recently - s/p retrieval of stent due to concern of stent blockage defer all management to GI may need transfer back to [facility] for repeat stent and/or surgery 4. FEN - restart diet, lytes in AM 5. loose crown - s/p tooth now absent; tooth has been saved; needs to see [facility] 6. essential tremor - primidone 25mg BID 7. probable chronic pancreatitis - add creon TID w/ meals + snacks updated spoke with Dr. Valentine - he is awaiting to hear back from surgery and GI at [facility] this will dictate plan of care Kelly MIMS MD (Moose Mims MD)
[2016-07-04] MEDS ORDERED: NURSING VERBAL MED ORDER ONE (20:00)
[2016-07-04] MEDS: CLONAZEPAM 0.5 MG TAB PO SCH (21:03)
[2016-07-04] MEDS: CEFTRIAXONE SOD INJ 2000 MG in DEXTROSE 5% 50ML IV SCH (22:10)
[2016-07-04] MEDS: MoRPHine SULFATE 4 MG/ML 1 ML CARP\\VIAL IV PRN (22:15)
[2016-07-04 23:03] VITALS: BP 154/62; PULSE 50; TEMP 36.8; O2SAT 94
[2016-07-05] MEDS: CLOTRIMAZOLE 10 MG TROCHE MT SCH ×5 (06:36→22:35)
[2016-07-05 07:06] LABS: BUN/CREATININE RATIO 28.3 (10-20); CALCIUM 8.4 mg/dl (8.5-10.1); CREATININE 0.53 mg/dl (0.60-1.40); MAGNESIUM 2.3 mg/dl (1.8-2.4); POTASSIUM 3.6 mmol/L (3.5-5.1)
[2016-07-05 07:17] VITALS: BP 168/82; PULSE 52; TEMP 36.8; O2SAT 95
[2016-07-05] MEDS ORDERED: CIPROFLOXACIN 250 MG TAB PO SCH (09:00)
[2016-07-05] MEDS: PANCREAZE (LIPASE 10,500U) CAP PO SCH ×3 (09:01→18:51)
[2016-07-05] MEDS: PRIMIDONE 50 MG TAB PO SCH (09:01)
[2016-07-05] MEDS: VALSARTAN 80 MG TAB PO SCH (09:01)
[2016-07-05] MEDS: PANTOprazole SOD 40 MG TAB PO SCH (09:02)
[2016-07-05] MEDS: CIPROFLOXACIN 500 MG TAB PO SCH ×2 (09:49→20:47)
--- NOTE | 2016-07-05 13:01 | GASTROENTEROLOGY PROGRESS NOTE ---
DATE: 07/04/2016 SUBJECTIVE: The patient continues to do well overall. The patient has remained afebrile with a temperature of 36.7, blood pressure 133/78, pulse 54. His medications include pantoprazole, TPN, ciprofloxacin, primidone for benign essential tremor. He has also been started on pancreatic enzymes supplements as his diet has been slowly increased starting this afternoon. ALLERGIES: He has no known drug allergies. REVIEW OF SYSTEMS: His review of systems is otherwise noncontributory based on 14-point exam. From a clinical standpoint the patient does not report any significant abdominal pain although just started his oral intake. There is still a pattern of brief discomfort on deep respiration. OBJECTIVE: GENERAL: The patient is awake, alert, oriented x3. HEENT: Sclerae are anicteric. Oral mucosa moist. HEART: Normal S1, S2. LUNGS: Clear to auscultation. ABDOMEN: Flat, nontender, nondistended, good bowel sounds. EXTREMITIES: Without edema. RECTAL: Deferred. IMPRESSION: The patient with tail pancreatitis, evidence of chronic pancreatitis on endoscopic ultrasound and Escherichia coli bacteremia. PLAN: At this time the plan is to slowly increase oral intake as tolerated with small frequent meals and pancreatic enzyme replacement. Hopefully by the weekend if oral intake is adequate by nutrition standards, the TPN can be stopped. I did have an opportunity to speak with Dr. Kong this evening and review the case with him. He will be happy to see the patient down at [facility] next Saturday or Saturday and I will make tentative plans and arrangements for that. The patient should continue to ambulate and the patient has been changed to oral Cipro for the E. coli. All questions answered. Tentatively it is hopeful the patient can be discharged by Saturday afternoon with outpatient surgical evaluation next week. All questions answered.
--- NOTE | 2016-07-05 14:55 | Progress Note ---
Subjective Date of Service: Jul 05, 2016. (Oumou French PA-C) Subjective Pt evaluation today including: conversation w/ patient, physical exam, chart review, lab review, review of inpatient medication list Patient seen and evaluated. No acute events overnight. Continues to take in small meals and tolerating well without N/V or abdominal pain. Verbalizes no complaints at this time. (Oumou French PA-C) Problem List Medical Problems: (1) Cyst of pancreas Status: Acute (2) Lactic acidosis Status: Acute (3) Leukocytosis Status: Acute (4) Pancreatitis Status: Acute (5) Pancreatitis Status: Acute (6) Sepsis Status: Acute (Oumou French PA-C) Review of Systems Constitutional: No chills, No fever Respiratory: No cough, No shortness of breath Cardiac: No chest pain Abdomen: No constipation, No diarrhea, No nausea, No pain, No vomiting Musculoskeletal: No calf pain, No swelling Male : No dysuria Neurologic: No balance problems Skin: No rash All Other Systems: Reviewed and Negative (Oumou French PA-C) Medications Current Inpatient Medications Medications (Trade) Dose Ordered Sig/Pio Route Start Time Stop Time Status Last Admin Dose Admin Ondansetron HCl (Zofran Inj) 4 mg Q6H PRN IV 06/28/16 21:15 07/28/16 21:14 07/02/16 21:45 4 MG Acetaminophen (Tylenol Tab) 650 mg Q4H PRN PO 06/28/16 21:15 07/28/16 21:14 Zolpidem Tartrate (Ambien Tab) 5 mg HSZ PRN PO 06/28/16 21:15 07/28/16 21:14 Clonazepam (Klonopin Tab) 0.5 mg QPM PO 06/29/16 21:00 07/29/16 20:59 07/04/16 21:03 0.5 MG Lorazepam (Ativan Inj) 0.5 mg Q4H PRN IV 06/28/16 21:15 07/28/16 21:14 Lorazepam (Ativan Inj) 1 mg Q4H PRN IV 06/28/16 21:15 07/28/16 21:14 Morphine Sulfate (MoRPHine SULFATE INJ) 2 mg Q2H PRN IV 06/28/16 21:15 07/12/16 21:14 07/02/16 07:23 2 MG Morphine Sulfate 4 mg 4 mg Q2H PRN IV 06/28/16 21:15 07/12/16 21:14 07/04/16 22:15 4 MG Promethazine HCl 25 mg/Sodium Chloride 51 ml @ 204 mls/hr Q6H PRN IV 06/28/16 21:15 07/28/16 21:14 07/01/16 13:19 204 MLS/HR Lorazepam 0.5 mg/ Syringe 0.5 ml @ 0.5 mls/min Q4H PRN IV 06/28/16 22:15 07/28/16 22:14 Lorazepam 1 mg/ Syringe 1 ml @ 1 mls/min Q4H PRN IV 06/28/16 22:15 07/28/16 22:14 Acetaminophen 650 mg/Empty Bag 65 ml @ 260 mls/hr Q6H PRN IV 06/29/16 08:00 07/29/16 07:59 07/01/16 19:42 260 MLS/HR Dextrose (D10w) 1,000 ml @ 0 mls/hr Q0M PRN IV 06/29/16 07:45 07/29/16 07:44 Miscellaneous Information (Pharmacy Consult) 1 ea UD PRN N/A 06/29/16 07:45 07/29/16 07:44 Enteral Nutritional Formula (Peptamen 1.5) 1,000 ml UD JT 06/29/16 15:30 07/29/16 15:29 Future Hold 07/01/16 00:10 1,000 ML Clotrimazole (Mycelex 10MG Jimenez) 1 jimenez [id number] MT 06/30/16 13:00 07/30/16 12:59 07/05/16 14:00 1 JIMENEZ Primidone (Mysoline Tab) 25 mg BID PO 07/04/16 09:00 08/03/16 08:59 07/05/16 09:01 25 MG Valsartan (Diovan Tab) 160 mg QAM PO 07/04/16 09:00 08/03/16 08:59 07/05/16 09:01 160 MG Amylase/Lipase/ Protease (Pancreaze (Lipase 10,500U) Cap) 2 cap TIDM PO 07/04/16 09:30 08/03/16 09:29 07/05/16 13:01 2 CAP Amylase/Lipase/ Protease give 1 capsule for sm... PRN PRN PO 07/04/16 09:30 08/03/16 09:29 Nutrition (Parenteral) (Custom Central Pn) 0 ml @ 0 mls/hr TODAY@1600 IV 07/04/16 16:00 07/05/16 15:59 07/04/16 16:27 65.75 MLS/HR Pantoprazole Sodium (Protonix Tab) 40 mg QAM PO 07/05/16 09:00 08/04/16 08:59 07/05/16 09:02 40 MG Ciprofloxacin 500 mg 500 mg Q12 PO 07/05/16 09:00 07/19/16 08:59 07/05/16 09:49 500 MG Nutrition (Parenteral) (Custom Central Pn) 0 ml @ 0 mls/hr TODAY@1600 IV 07/05/16 16:00 07/06/16 15:59 (Oumou French, PA-C) Objective Vital Signs Date Time Temp Pulse Resp B/P Pulse Ox O2 Delivery O2 Flow Rate FiO2 07/05/16 07:17 36.8 52 16 168/82 95 Room Air 07/04/16 23:37 Room Air 07/04/16 23:03 36.8 50 16 154/62 94 Room Air 07/04/16 16:25 Room Air 07/04/16 15:10 36.7 54 18 133/78 98 Room Air 07/04/16 09:37 92 Room Air 07/04/16 08:41 Room Air 07/04/16 07:56 37.0 64 22 129/76 92 Room Air (Oumou French, PA-C) Physical Exam General Appearance: no apparent distress, + thin Eyes: sclerae normal ENT: hearing grossly normal, + pertinent finding (R lateral incisor crown removed) Neck: supple, no JVD, trachea midline Respiratory/Chest: lungs clear, normal breath sounds, no respiratory distress, no accessory muscle use Cardiovascular: regular rate, rhythm, no gallop, no murmur Abdomen: normal bowel sounds, non tender, soft Extremities: no pedal edema, no calf tenderness Neurologic/Psychiatric: alert, oriented x 3 Skin: normal color, warm/dry (Oumou French, CALDERONC) Laboratory Results Last 24 Hours Test 07/05/16 06:00 Sodium Level 142 mmol/L Potassium Level 3.6 mmol/L Chloride Level 108 mmol/L Carbon Dioxide Level 24 mmol/L Anion Gap 10.0 mmol/L Blood Urea Nitrogen 15 mg/dl Creatinine 0.53 mg/dl Est Creatinine Clear Calc Drug Dose 133.1 ml/min Estimated GFR () 128.7 Estimated GFR (Non- 111.0 BUN/Creatinine Ratio 28.3 Random Glucose 99 mg/dl Calcium Level 8.4 mg/dl Phosphorus Level 3.0 mg/dl Magnesium Level 2.3 mg/dl Total Bilirubin 0.3 mg/dl Direct Bilirubin 0.1 mg/dl Aspartate Amino Transf (AST/SGOT) 45 U/L Alanine Aminotransferase (ALT/SGPT) 141 U/L Alkaline Phosphatase 327 U/L Total Protein 6.0 gm/dl Albumin 2.4 gm/dl Lipase 2611 U/L (Oumou French PA-C) Assessment and Plan Mr. Schwarz is a 65 y/o WM with PMHx of Essential Tremor, HTN, S/P Colon Resection 2/2 Diverticulitis, S/P Cholecystectomy, Gastric Erosions, and Chronic Pancreatitis who is S/P Pancreatic Duct Stent. Sepsis/Bacteremia from gram negative bacteria resultant from placement of pancreatic stent: ANTIBIOTIC DAY #8 of 14 - E coli in 2 of 2 blood cultures, burroughs sensitive - afebrile > 48 hours at this time - Repeat BCx x 2 - NGTD - Ciprofloxacin 500 mg BID Recurrent Pancreatitis - Worsened by Serology - S/P Stent Removal 07/02 - Assessment - diet has been advanced and he has been able to eat small amounts and currently tolerating - will monitor -- Lipase continues to gradually increase put patient without abdominal pain - Continue TPN at current time with taper as oral intake improves - add enzymes - Trend Lipase - GI Following - awaiting confirmation for possible [place] transfer Hypomagnesemia and Hypokalemia: RESOLVED - Replete as necessary - continue to monitor GERD: - Pantoprazole 40 mg IV daily Essential Tremor: - Primidone 25 mg BID - monitor for oversedation - can be given HS only if needed Code Status:- FULL RESUSCITATION Disposition: - Possible transfer to [place] for further surgical intervention vs new stent - Has [facility] and HHS established from prior admission Continued [facility] stay due to: multiple IV medications needed Discharge planning: home with home health (Oumou French, PA-C) Attending Attestation: Pt seen/examined, chart reviewed, care plan d/w CYNDI French. I agree w/ the shore components of her progress note. Feels very good. No abd pain, nausea, emesis. Had large BM today - somewhat liquid. NO other complaints. VSS, afebrile gen - NAD mouth - right lateral incisor absent but is otherwise normal heart - RRR, s1, s2 lungs - CTA b/l abd - soft, NT, ND, BS+, no HSM ext - RUE PICC clean neuro - essential tremor of both hands/arms - no change repeat blood cx's negative BMP nl lipase 2600 LFTs slightly better A/P: 1. e. coli bacteremia/sepsis - likely source is enteric/pancreatic/related to recent stent; doubt PICC line as source. day #8 of antibiotics today. will need 14 days of therapy change to PO Cipro 500mg BID today repeat blood cx's neg suggesting blood is now sterile 2. acute pancreatitis - resolved clinically; diet resumed and is tolerating such. 3. h/o recurrent pancreatitis with pancreatic duct stricture s/p stent at [facility] recently - s/p retrieval of stent due to concern of stent blockage defer all management to GI to meet with [facility] next week; thank you to Dr. Valentine for arranging this 4. FEN - lytes stable, tolerating diet; can likely d/c TPN tomorrow 5. loose crown - s/p tooth now absent; tooth has been saved; needs to see dental [facility] 6. essential tremor - increase HS primidone to 50mg; leave am dose at 25mg 7. probable chronic pancreatitis - creon TID w/ meals + snacks updated hopefully home tomorrow Kelly MIMS MD (Moose Mims MD)
[2016-07-05 15:15] VITALS: BP 136/76; PULSE 57; TEMP 37.1; O2SAT 96
[2016-07-05] MEDS ORDERED: CUSTOM CENTRAL PN 1 BAG IV SCH (16:00)
[2016-07-05] MEDS: CLONAZEPAM 0.5 MG TAB PO SCH (20:43)
[2016-07-05] MEDS ORDERED: PRIMIDONE 50 MG TAB PO SCH (21:00)
[2016-07-05 23:12] VITALS: BP 164/88; PULSE 52; TEMP 36.9; O2SAT 96
[2016-07-05] MEDS: MoRPHine SULFATE 2 MG/ML CARP IV PRN (23:21)
--- NOTE | 2016-07-06 01:34 | GASTROENTEROLOGY PROGRESS NOTE ---
DATE: 07/05/2016 The patient is doing well, had an excellent day with meals today and actually had proceeded through to solid foods (low fat without any difficulty). He actually reports that he "feels great." He had a sizable lunch and dinner including turkey, baked potato, bread. He is taking pancreas replacement enzymes. The patient has no abdominal pain, is afebrile with temperature of 37.1, heart rate 57, respirations 18, blood pressure 136/76. MEDICATIONS: His medications were reviewed. He is currently on primidone, pantoprazole, oral ciprofloxacin, pancreatic enzymes, valsartan, clotrimazole troches, clonazepam. ALLERGIES: Unchanged. No known drug allergies. REVIEW OF SYSTEMS: Otherwise noncontributory. The patient denies any nausea, vomiting, abdominal pain, diarrhea or constipation. PHYSICAL EXAMINATION: LUNGS: Clear to auscultation. No rales, rhonchi or wheezes. HEART: Normal S1, S2. No rubs, gallops or murmurs. HEENT: Sclerae anicteric. Oral mucosa moist. ABDOMEN: Soft, nontender, nondistended. With moderate palpation, no rebound or guarding. EXTREMITIES: Without clubbing, cyanosis or edema. RECTAL: Deferred. NEUROLOGIC: The patient has a chronic benign tremor. No recent labs to report. IMPRESSION: I spoke with Dr. Herrmann last evening. At this point, we will plan to have a surgical evaluation as an outpatient at [place] on either Saturday or Saturday. I provided number for [facility] and asked him to contact Dr. Herrmann to confirm which date and time will be available for review. I also asked the patient to make sure that he hand-carries the discs of all CT images available from [facility]. The patient should cautiously maintain his current diet with pancreas supplements and to remain hydrated as well as possible. After tonight's bag of TPN, I believe this can be discontinued as it appears that the patient is tolerating reasonable amounts of oral intake. The patient knows to contact me with any changes and reports he has a followup appointment with me. Further recommendations once Dr. Herrmann has had a chance to meet with the patient. All questions answered. Tentative discharge for tomorrow.
[2016-07-06] MEDS: CLOTRIMAZOLE 10 MG TROCHE MT SCH ×3 (06:24→14:44)
[2016-07-06 07:07] VITALS: BP 164/87; PULSE 53; TEMP 36.7; O2SAT 95
[2016-07-06 07:57] LABS: BUN/CREATININE RATIO 29.5 (10-20); CALCIUM 8.6 mg/dl (8.5-10.1); CREATININE 0.56 mg/dl (0.60-1.40); POTASSIUM 3.6 mmol/L (3.5-5.1)
[2016-07-06 08:00] LABS: ALB/GLOB RATIO 0.7 (0.9-2)
[2016-07-06] MEDS: CIPROFLOXACIN 500 MG TAB PO SCH ×2 (08:41→17:54)
[2016-07-06] MEDS: PANCREAZE (LIPASE 10,500U) CAP PO SCH ×3 (08:42→17:54)
[2016-07-06] MEDS: VALSARTAN 80 MG TAB PO SCH (08:42)
[2016-07-06] MEDS: PANTOprazole SOD 40 MG TAB PO SCH (08:44)
[2016-07-06] MEDS ORDERED: PRIMIDONE 50 MG TAB PO SCH (09:00)
[2016-07-06] MEDS ORDERED: VALSARTAN 80 MG TAB PO ONE (09:45)
[2016-07-06 14:52] VITALS: BP 119/73; PULSE 57; TEMP 36.8; O2SAT 96
--- NOTE | 2016-07-06 17:19 | PROGRESS NOTE ---
DATE: 07/06/2016 SUBJECTIVE: The patient's abdominal pain is improving and he is on a low fat diet and tolerating it. He did eat a large meal last night and today his lipase level has increased to 4680. His liver tests remain slightly elevated, probably from his TPN; albumin is increased from being very, it is still low but improved to 2.6. He remains afebrile. Vital signs are stable. He continues on oral antibiotics and pancreatic enzyme replacement. IMPRESSION AND PLAN: The patient has a pancreatic duct stricture with inflammation in the tail of his pancreas. He has an appointment a week from today at [place] to see a surgeon about possible resection. In the meantime, I think the patient can be discharged on a low fat diet and pancreatic enzyme replacement. He will need to continue his oral antibiotics and follow up at [place] in [address] Jernigan. SANDRA
[2016-07-06] MEDS ORDERED: RXC5 PO (18:05)
[2016-07-06] MEDS ORDERED: PANCCAP2 PO (18:05)
[2016-07-06] MEDS ORDERED: CPR500 PO (18:05)
[2016-07-06] MEDS ORDERED: MYS50 PO (18:05)
--- NOTE | 2016-07-06 18:14 | Discharge Instructions ---
Discharge Instructions Admission Reason for Admission: Pancreatitis Due To Pancreatic Duct Obstruction Discharge Discharge Diagnosis / Problem: Pancreatitis, improved. E. coli sepsis ( bloodstream infection) - resolved. Discharge Goals Goal(s): Decrease discomfort, Improve disease control, Improve nutritional status, Learn about illness, Diagnostic testing, Therapeutic intervention Activity Recommendations Activity Limitations: as noted below Exercise/Sports Limitations: as tolerated (but would NOT recommend heavy exertional activity such as lifting over 25 pounds, going to the gym, heavy yard work or jobs around the house, etc. "Take it easy" until you are seen by surgery at [facility]. ) Shower/Bathe: no limitations Driving or Machine Use: may drive as long as you are NOT taking pain medication . Instructions / Follow-Up Instructions / Follow-Up From Dr. Mims - 1. Pancreatitis - * please follow a strict, low fat diet. Eat small meals. Avoid alcohol, fried foods, fast foods, TV dinners, chips/desserts, etc. * plenty of fluids over the next few days (gatorade, water, juice, etc). * take your pancrease enzymes with each meal and with snacks. * follow-up with Dr. Herrmann at [facility] next Saturday as scheduled. 2. Bloodstream infection (e.coli sepsis) - * you have 5 days left of antibiotics (cipro); start this TOMORROW morning * take the cipro in the AM and at bedtime * if you develop a fever over 100.5 degrees come to the emergency room at [facility] immediately 3. STOP your cholesterol medication (simvastatin). 4. DO NOT take ANY tylenol or tylenol containing products. 5. If you have MILD pain you may take oxycodone as needed. If you have severe pain in your abdomen, however, it is best to seek medical attention. Do not take aspirin, motrin, alleve, ibuprofen, etc. 6. For your essential tremor - * take primidone 50mg at bedtime * take primidone 25mg in the AM * see a neurologist in the future for further needs 7. See your dentist SHEILA for the crown that fell out of your mouth. 8. High blood pressure - I suspect your blood pressure will be better at home / outside of the hospital. Resume your previous dose of 160mg once daily. 9. See Dr. Abdul THIS WEEK on Saturday or Saturday for a quick visit to ensure you are recovering nicely from your hospitalization. Current Hospital Diet Patient's current hospital diet: Low Fat Diet Discharge Diet Recommended Diet: Low Fat Diet Procedures Procedures Performed: EGD (endoscopy) with Stent Removal CAT scan of the abdomen/pelvis Pending Studies Studies pending at discharge: no Laboratory Results Lipid Panel Test 06/26/16 10:30 Range/Units Triglycerides Level 48 0-150 mg/dl Medical Emergencies . Who to Call and When: Medical Emergencies: If at any time you feel your situation is an emergency, please call 911 immediately. . Non-Emergent Contact Non-Emergency issues call your: Primary Care Provider, [facility] Call Non-Emergent contact if: temperature is above 100.5, your pain is not controlled, your pain is worsening, your pain is concerning you, you have any medication questions . . "Provider Documentation" section prepared by Moose Mims. VTE Core Measure Inpt VTE Proph given/why not?: SCD's
[2016-07-06 18:49] VITALS: BP 119/73; PULSE 57; TEMP 36.8; O2SAT 96
[2016-07-07] MEDS ORDERED: VALSARTAN 80 MG TAB PO SCH (09:00)
--- NOTE | 2016-07-10 06:51 | Discharge Summary ---
Discharge Summary Admission Date: Jun 28, 2016 at 21:12 Discharge Date: Jul 06, 2016 Discharge Disposition: Home Principal Diagnosis: e. coli sepsis / bacteremia Problems/Secondary Diagnoses: 1. acute/chronic pancreatitis with recent pancreatic duct stent at [facility] 2. history of alcohol abuse in the past - resolved 3. essential tremor 4. abnormal LFTs possibly 2nd to TPN 5. hyperlipidemia 6. HTN 7. h/o melanoma 8. hypokalemia, hypophosphatemia - both resolved 9. 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 CT abd/pelvis #1 - IMPRESSION: 1. Indwelling pancreatic duodenal stent 2. Indistinctness the pancreatic tail with peripancreatic stranding. The findings are suggestive of pancreatitis 3. Mild splenomegaly. There are clefts within the superior margin of the spleen. Small lacerations cannot be excluded however there is no history of trauma, and there is no perisplenic fluid to support this diagnosis 4. No evidence of bowel obstruction. No evidence of free air 5. Surgically absent gallbladder. Mild dilatation the common bile duct (10 mm) 2. CT abd/pelvis #2 - IMPRESSION: 1. Suboptimal examination without IV contrast. 2. Small pleural effusions have increased in size from 06/28/2016. 3. The pancreas appears mildly atrophic and a stent within the pancreatic duct is unchanged in position. The pancreatic tail abnormality seen on prior examinations is not well assessed without IV contrast. 4. There is mild haziness/stranding around the distal pancreas. Mild pancreatitis is not excluded. Correlation with clinical findings and serum lipase levels will be required. 5. Trace abdominopelvic ascites. This has modestly increased from previous. 6. Splenomegaly. 3. EGD - Dr. Abdirizak Gonzales Findings: A previously placed pancreatic stent was seen in the ampulla. Stent removal was accomplished with a snare. Estimated blood loss: none. The examined esophagus was normal. A gastric tube was found in the gastric antrum. Consultations: gastroenterology - Abdirizak Gonzales MD Medication Reconciliation New Medications: Oxycodone HCl (Oxycodone HCl) 5 Mg Tab 5 MG PO Q6H PRN for Pain, #15 0 Refills Ciprofloxacin (Ciprofloxacin HCl) 500 Mg Tab 500 MG PO Q12 for 5 Days, #10 TAB 0 Refills start AM of 07/07/16 Pancrelipase (Lipase-Protease- (Pancreaze) 1 Cap Cap 2 CAP PO DIRECTED, #240 CAP 0 Refills take 2 capsules with breakfast/lunch/dinner, 1 capsule for small snacks, and 2 capsules for large snacks. Primidone (Primidone) 50 Mg Tab 50 MG PO DIRECTED, #60 TAB 1 Refill take 25mg every morning and 50mg at bedtime Continued Medications: Alprazolam (Alprazolam) 0.25 Mg Tab 0.25 MG PO TID PRN for Tremor for 15 Days, #45 TAB 0 Refills Clonazepam (Klonopin) 0.5 Mg Tab 0.5 MG PO QPM, TAB Pantoprazole (Protonix) 40 Mg Tab 40 MG PO BID, #30 TAB Valsartan (Diovan) 160 Mg Tab 160 MG PO DAILY, TAB Discontinued Medications: Hydrocodone/Acetaminophen 5MG/325MG (Lorenzo 5MG/325MG) Tab 1-2 TAB PO Q4H PRN for Pain, #60 TAB PRN PAIN Simvastatin (Zocor) 40 Mg Tab 40 MG PO QAM, TAB Referrals At Discharge Follow up Referrals: Family Practice Referral - Please Call For Appointment with Chino Abdul MD Physician Referral - 07/13/16 with Fredy Herrmann M.D. Discharge Exam Physical Exam: General Appearance: no apparent distress, + thin Eyes: sclerae normal ENT: pharynx normal, + pertinent finding (crown, right lateral incisor, has fallen out/absent ) Neck: no JVD Respiratory/Chest: lungs clear, no respiratory distress, no accessory muscle use Cardiovascular: regular rate, rhythm, no gallop, no murmur, normal peripheral pulses Abdomen / GI: normal bowel sounds, non tender, soft, no organomegaly Extremities: no pedal edema Neurologic/Psychiatric: alert, oriented x 3, + pertinent finding (essential tremor of head/neck and arms) Skin: no rash Hospital Course HISTORY OF PRESENT ILLNESS: The patient is a 65-year-old male who presented to the emergency room with complaint of worsening left-sided abdominal pain that began on the day of presentation. He is status post pancreatic duct stent placement by ERCP and EUS 3 days ago at [facility] due to pancreatic duct stricture. He had had 4 previous episodes of pancreatitis, with most recent being while hospitalized from May 14 through May 22 at [facility]. His pain today is different than previous episodes of pancreatitis. He reportedly started shaking all over about 30 minutes after his symptoms began. He presently is receiving TPN through a PICC line in his right upper arm, and was to be starting enteral nutrition through an NG tube tomorrow. HOSPITAL COURSE: 1. e. coli bacteremia/sepsis - the patient's admission blood cultures grew e. coli, pansensitive. The likely source for his infection was enteric/pancreatic/related to recent stent; doubt PICC line as source. He received IV antibiotics his entire stay, transitioning to oral cipro prior to discharge. He will complete 5 more days of cipro after discharge (for total 14-day course). Repeat blood cultures later in his stay remained negative. 2. acute pancreatitis - resolved clinically with bowel rest and supportive care measures. He was restarted on a diet and advanced to low fat diet without difficulty. He received extensive dietary counseling prior to discharge to avoid GI upset and worsening of symptoms. 3. h/o recurrent pancreatitis with pancreatic duct stricture s/p stent at [facility] recently - Dr. Abdirziak Gonzales and Dr. Temo Valentine, both of [facility] GI, were consulted and provided valuable recommendations for his care. Both were in communication with [facility] GI/general surgery and ultimately it was felt that his pancreatic stent was dysfunctional. Thus, EGD was performed by Dr. Gonzales and the stent was retrieved. Following stent retrieval he was started on clear liquid diet and advanced to low fat diet as tolerated. He was also started on creon for suspected chronic pancreatitis. Lipase levels remained elevated for most of his stay. Range was low 2000s to 4500. Discharge lipase level was 4680. Despite such he had NO abdominal pain, nausea, or emesis in the latter half of his stay including the day of discharge. He will discharge to home with follow-up with Dr. Fredy Herrmann on Saturday, , to discuss surgical options for his ongoing pancreatic issues. 4. chronic pancreatitis - started on creon TID with meals and snacks. 5. essential tremor - he was started on primidone BID for such with improved symptoms. He will continue this medication after discharge. 6. HTN - he will continue on diovan for such. 7. abnormal LFTs - his statin agent was discontinued. There was concern that his TPN was causing the mildly high LFTs. Due to this issue plus the fact he was tolerating a diet his TPN and PICC line were both discontinued prior to discharge. 8. loss of a crown - following his EGD one of his maxillary crowns became loose then ultimately fell out. He will follow-up with his dentist SHEILA for management of this problem. Total Time Spent: Greater than 30 minutes This includes examination of the patient, discharge planning, medication reconciliation, and communication with other providers. Discharge Instructions Please refer to the electronic Patient Visit Report (Discharge Instructions) for additional information. Follow-Up 1. see Dr. Fredy Herrmann - [facility] surgery - as scheduled on 07/13/[address] Chino Abdul, [facility], within 5 days Additional Copies To Chino Abdul MD; Fredy Herrmann M.D.; Abdirizak Gonzales M.D.; Temo Valentine M.D.
[2016-10-15] MEDS ORDERED: CALC500C3 PO (15:25)
[2016-10-15] MEDS ORDERED: [UNRECOGNIZED DRUG - CODE] RE (15:25)
[2016-10-15] MEDS ORDERED: ACTUDL GJT (15:25)
[2016-10-16] MEDS ORDERED: SODI0.9S IV (08:02)
[2016-10-16] MEDS ORDERED: TPN IV (08:02)
[2016-10-24] MEDS ORDERED: CBCI IV (11:28)
[2016-10-25] MEDS ORDERED: HYDROMORPHONE HCL PO (12:35)
[2016-12-26] MEDS ORDERED: ESCI1TAB6 PO (10:21)
== END 2016-07-06 19:47 | disposition home health service (06) | DRG 949 ==
LOC: ENRESERVDT → ENRESERVTM → C.EDB 17:30 → C.MSN 21:12
PROVIDERS: ADMIT Hospitalist; ATTEND Internal Medicine
PROC: 0FPD8DZ Removal of Intraluminal Device from Pancreatic Duct, Via Natural or Artificial Opening Endoscopic (ICD-10-PCS; principal; 2016-07-02 14:32)
DX: T85.898A Other specified complication of other internal prosthetic devices, implants and grafts, initial encounter (principal); K85.90 Acute pancreatitis without necrosis or infection, unspecified; A41.9 Sepsis, unspecified organism; E87.2 Acidosis; B37.0 Candidal stomatitis; Y84.8 Other medical procedures as the cause of abnormal reaction of the patient, or of later complication, without mention of misadventure at the time of the procedure; K08.89 Other specified disorders of teeth and supporting structures; I10 Essential (primary) hypertension; E87.6 Hypokalemia; E83.42 Hypomagnesemia; F41.9 Anxiety disorder, unspecified; E78.00 Pure hypercholesterolemia, unspecified; G25.0 Essential tremor; K21.9 Gastro-esophageal reflux disease without esophagitis; Z79.83 Long term (current) use of bisphosphonates; Z82.49 Family history of ischemic heart disease and other diseases of the circulatory system; Z85.20 Personal history of malignant neoplasm of unspecified respiratory organ; Z87.891 Personal history of nicotine dependence; K86.1 Other chronic pancreatitis; R63.8 Other symptoms and signs concerning food and fluid intake

== ENCOUNTER 2016-07-24 13:44 | Inpatient (IN) | payer BC, OTHER ==
[~2016-07-24] VITALS: Ht 175.3 cm; Wt 63.1 kg
[~2016-07-24 13:44] MED LIST changes: +CPR500 PO; -HYDR-5688 PO; +MYS50 PO; +PANCCAP2 PO; +RXC5 PO; -SIMV40TA2 PO
[2016-07-24] MEDS ORDERED: MoRPHine SULFATE 10 MG/ML CARP/VIAL IV STA (15:49)
[2016-07-24] MEDS ORDERED: ONDANSETRON INJ 2 MG/ML 2 ML VIAL IV STA (15:49)
--- NOTE | 2016-07-24 16:00 | EMERGENCY ROOM VISIT NOTE ---
ED Visit Note First contact with patient: 15:29 I have seen and examined this patient with Za Suarez and generally agree with the treatment plan as discussed. Problem List Medical Problems: (1) Hypertension Status: Chronic (2) Melanoma Status: Resolved (3) Pancreatitis Status: Resolved Surgical Problems: (1) History of back surgery Status: Resolved (2) S/P cholecystectomy Status: Resolved (3) S/P colon resection Status: Resolved Current/Historical Medications Scheduled Ciprofloxacin (Ciprofloxacin HCl), 500 MG PO Q12 Clonazepam (Klonopin), 0.5 MG PO QPM Pancrelipase (Lipase-Protease- (Pancreaze), 2 CAP PO DIRECTED Pantoprazole (Protonix), 40 MG PO BID Primidone (Primidone), 50 MG PO DIRECTED Valsartan (Diovan), 160 MG PO DAILY Scheduled PRN Alprazolam (Alprazolam), 0.25 MG PO TID PRN for Tremor Oxycodone HCl (Oxycodone HCl), 5 MG PO Q6H PRN for Pain Allergies Coded Allergies: No Known Allergies (Unverified , 06/28/16) Vital Signs Date Time Temp Pulse Resp B/P Pulse Ox O2 Delivery O2 Flow Rate FiO2 07/24/16 15:57 60 17 135/76 99 Room Air 07/24/16 14:02 36.7 98 22 107/68 97 Room Air Laboratory Results Test 07/24/16 15:26 Departure Information Referrals Chino Abdul MD (PCP) Patient Instructions [facility]
[2016-07-24 16:05] LABS: BASO % 0.2 %; BASO ABS # 0.02 K/uL (0-0.2); COMPLETE YES; EOS % 1.3 %; HEMATOCRIT 37.8 % (42-52); IG% 0.3 %; LYMPH % 10.5 %; LYMPH ABS # 1.37 K/uL (1.2-3.4); MEAN CELL VOLUME 90.6 fL (80-100); MEAN CORPUSCULAR HEMOGLOBIN 30.7 pg (25-34); MEAN CORPUSCULAR HGB CONC 33.9 g/dl (32-36); MEAN PLATELET VOLUME 10.3 fL (7.4-10.4); NEUT % 80.7 %; PLATELET COUNT 397 K/uL (130-400); RED BLOOD COUNT 4.17 M/uL (4.7-6.1); WHITE BLOOD COUNT 13.08 K/uL (4.8-10.8)
[2016-07-24 16:13] LABS: INR 1.2 (0.9-1.1); PARTIAL THROMBOPLASTIN RATIO 1.2; PROTHROMBIN TIME (PATIENT) 12.4 SECONDS (9.0-12.0)
[2016-07-24] MEDS ORDERED: PRLSR20 PO (16:17)
[2016-07-24] MEDS ORDERED: DVN80 PO (16:17)
[2016-07-24 16:27] LABS: BUN/CREATININE RATIO 23.6 (10-20); CALCIUM 9.1 mg/dl (8.5-10.1); CREATININE 0.57 mg/dl (0.60-1.40)
[2016-07-24 16:30] LABS: ALB/GLOB RATIO 1.1 (0.9-2)
--- NOTE | 2016-07-24 16:44 | DIAGNOSTIC IMAGING REPORT ---
ABDOMEN 2VIEW W/PA CHEST RTN CLINICAL HISTORY: abdominal pain, pancreatitis, recent surge COMPARISON STUDY: 06/28/2016 FINDINGS: Lungs are clear. Diaphragms smooth. Moderate increase in fecal load of the colon. No evidence for obstructive change. IMPRESSION: Moderate increase in fecal load throughout the colon. Otherwise negative study Electronically signed by: Jett Lofton M.D. 07/24/2016 4:42 PM Dictated Date/Time: 07/24/2016 4:41 PM
[2016-07-24 17:04] LABS: URINE APPEARANCE CLEAR (CLEAR); URINE BILIRUBIN NEG (NEG); URINE COLOR YELLOW; URINE NITRITE NEG (NEG); UROBILINOGEN NEG (NEG); ZZUR CULT IF INDIC CLEAN CATCH NO
[2016-07-24 17:07] LABS: MANUAL MICROSCOPIC REQUIRED? NO; REVIEW REQ? NO
[2016-07-24] MEDS ORDERED: HYDROmorphone INJ 0.5 MG/0.5 ML SYR IV STA (17:47)
[2016-07-24] MEDS ORDERED: ONDANSETRON INJ 2 MG/ML 2 ML VIAL IV PRN (18:00)
[2016-07-24 19:40] VITALS: BP 138/79; PULSE 56; TEMP 36.8; O2SAT 96
[2016-07-24 19:45] VITALS: BP 128/75; PULSE 55; TEMP 36.7; O2SAT 95
[2016-07-24 19:59] VITALS: BP 128/75; PULSE 55; TEMP 36.7; O2SAT 95; Ht 175.3 cm; Wt 63.1 kg
[2016-07-24] MEDS: LACTATED RINGER'S 1000ML 1,000 ML IV SCH ×2 (20:20→23:42)
[2016-07-24] MEDS: MoRPHine SULFATE 4 MG/ML 1 ML CARP\\VIAL IV PRN ×2 (20:25→23:42)
[2016-07-24] MEDS: ENOXAPARIN 40 MG/0.4 ML SYR SQ SCH (20:30)
[2016-07-24] MEDS: PRIMIDONE 50 MG TAB PO SCH (20:31)
--- NOTE | 2016-07-24 20:38 | HISTORY & PHYSICAL EXAMINATION ---
DATE OF ADMISSION: 07/24/2016 CHIEF COMPLAINT: Abdominal pain. HISTORY OF PRESENT ILLNESS: This is a 66-year-old male with history of recurrent pancreatitis who comes with abdominal pain. He was complaining of increasing abdominal pain in the last 5 days with associated nausea. So patient was admitted to the hospital on 06/29/2016, discharged 07/10/2016. The patient was seen for acute on chronic pancreatitis with recent pancreatic duct stent at [facility], history of alcohol abuse and abnormal LFTs. He had a CAT scan of abdomen and pelvis done that showed indwelling pancreaticoduodenal stent, indistinctness of the pancreatic tail with peripancreatic stranding, suggestive of pancreatitis, mild splenomegaly, surgically absent gallbladder, also small pleural effusions and pancreas mildly atrophic with stent within the pancreatic duct, pancreatic tail abnormalities seen on prior examination was not visualized without IV contrast. There was also mild haziness around the distal pancreas, mild pancreatitis was not excluded. Trace abdominal ascites. He had EGD done during previous admission with previously pancreatic stent that was placed was removed during that admission. The patient was seen by Dr. Gonzales and Dr. Valentine who were in communication with [facility] GI, general surgery and he was scheduled for followup appointment with Dr. Fredy Herrmann on 07/13/2016, to discuss surgical options for ongoing pancreatic issues. Dr. Herrmann evaluated the patient and suggested that no surgery is warranted and suggested that patient should follow up with him again on 08/09/2016 and then repeat another CAT scan to see if anything changed. REVIEW OF SYSTEMS: Negative except as above. Ten out of 14 systems were reviewed. PAST MEDICAL HISTORY: Significant for hypertension, melanoma, acute pancreatitis, history of back surgery, cholecystectomy, colon resection. FAMILY HISTORY: Cancer, gallbladder, heart disease, hypertension. SOCIAL HISTORY: Does not smoke. Does not drink. , lives with his . ALLERGIES: No known allergies. CURRENT MEDICATIONS: Clonazepam 0.5 mg p.o. daily at bedtime, omeprazole 40 mg p.o. daily, Roxicodone 5 mg p.o. q. 6 hours p.r.n. pain, Pancrease 2 capsules p.o. as directed, primidone 50 mg p.o. as directed, losartan 80 mg p.o. daily. PHYSICAL EXAMINATION: VITAL SIGNS: Temperature 36.7, pulse 69, respirations 16, blood pressure 121/64, 97% on room air. GENERAL: Not in acute distress, well nourished. HEENT: Normocephalic, atraumatic. PERRLA, EOMI. Mouth: No lesions, moist. NECK: No JVD. Trachea midline. Thyroid is not enlarged. LUNGS: Clear to auscultation bilateral. No wheezes, no rhonchi. HEART: S1, S2. RRR. ABDOMEN: Soft, tender to palpation diffusely. Bowel sounds present bilateral. EXTREMITIES: No clubbing, cyanosis, edema. NEUROLOGICAL: Alert, oriented x3. Motor sensory normal. Deep tendon reflexes 2+ bilateral. Cranial nerves II-XII are intact. SKIN: No rash. No jaundice. LABORATORY DATA: White count of 13.0, hemoglobin of 12.8, platelets 397. Chemistries are basically normal except for AST 29, ALT 92, alkaline phosphatase 171, amylase 412, lipase 3869. INR 1.2, PTT is 38.2. Urinalysis normal. IMAGING STUDIES: Chest and abdomen x-ray done, showed moderate increase in fecal load throughout the colon, otherwise negative study. The patient had no EKG done. ASSESSMENT AND PLAN: This is a 66-year-old male who comes with abdominal pain. 1. Recurrent pancreatitis, unknown if idiopathic or alcohol induced. The patient has history of cholecystectomy. Please see my HPI for additional information regarding his followup with [facility] surgeon and previous GI history. I personally talked to Dr. Weeks who talked to Dr. Valentine from [facility] and they will make further decision regarding possible patient nonemergent [facility] transfer in the next few days. In the meantime, we will continue patient on lactated Ringer 250 mL per hour. Keep patient n.p.o. except meds and we will hold his pancreatic enzymes since he is n.p.o. We will start patient on IV morphine 4 mg as needed p.r.n. pain. 2. History of essential tremor. Continue with primidone 50 mg p.o. b.i.d. 3. History of hypertension. Continue losartan 80 mg daily. 4. Deep venous thrombosis prophylaxis with Lovenox injections, GI prophylaxis with pantoprazole 40 mg daily. The patient is a full code. Time spent on doing this admission is 50 minutes. [facility]
[2016-07-24] MEDS: CLONAZEPAM 0.5 MG TAB PO SCH (22:14)
[2016-07-24] MEDS: OXYCODONE HCL IR 5 MG TAB (IMMEDIATE RELEASE) PO PRN (22:16)
[2016-07-24 22:50] VITALS: BP 143/76; PULSE 56; TEMP 36.7; O2SAT 94
--- NOTE | 2016-07-25 01:43 | EMERGENCY ROOM VISIT NOTE ---
History First contact with patient: 15:29 Chief Complaint: ABDOMINAL PAIN Stated Complaint: ACUTE PANCREATITIS Nursing Triage Summary: pt to the ED with c/o pancreatitis again with n/v pt has been here with this recently and has left sided abd pain History of Present Illness The patient is a 66 year old male who presents to the Emergency Room with complaints of abdominal pain and possible pancreatitis. The patient has a significant history of recurrent pancreatitis. He states that his first attack was 13 years ago, but he only had 3 bouts of pancreatitis until April 2016. The patient states that he was admitted here in April due to pancreatitis. He followed up in [place] for an ERCP and had a stent placement in the pancreatic duct, but states that the stent was not long enough. He was seen here shortly after and admitted for sepsis. During that admission, the stent was removed. The patient had been receiving TPN at that time and had received it for a total of 8 weeks. He states that at time of discharge from his last admission, his pain was much better and he was able to discontinue the TPN and eat a low-fat diet. He was taking Bethany with relief of the pain at that time. However, the patient states that over the past few weeks his pain has gradually been increasing after eating. Over the past 4 days, the pain has become constant and he has been unable to eat due to vomiting and pain. He rates his overall discomfort a 9/10. He states that he has been feeling lightheaded and weak. The Bethany is no longer relieving his pain. He denies any recent alcohol use and states that he has not drank alcohol prior to his first episode of pancreatitis 13 years ago. The patient follows with [facility] gastroenterology locally and states that he called Dr. Valentine today, who directed him to come here for admission and possible transfer to [facility]. The patient denies any fevers/chills, blood in his vomitus, changes in bowel movements, chest pain or shortness of breath. He does state that his abdominal pain feels similar to episodes of pancreatitis. Review of Systems A complete 10-point Review of Systems was discussed with the patient, with pertinent positives and negatives listed in the History of Present Illness. All remaining Review of Systems questions can be considered negative unless otherwise specified. Past Medical/Surgical History Medical Problems: (1) Acute pancreatitis (2) Hypertension (3) Melanoma (4) Pancreatitis (5) Pancreatitis due to biliary obstruction Surgical Problems: (1) History of back surgery (2) S/P cholecystectomy (3) S/P colon resection Family History FH: cancer FH: gallbladder disease FH: heart disease Hypertension Social History Smoking Status: Former Smoker Alcohol Use: none Drug Use: none Marital Status: Housing Status: lives with significant other Occupation Status: retired Current/Historical Medications Scheduled Clonazepam (Klonopin), 0.5 MG PO DAILY@2130 Omeprazole (Prilosec), 40 MG PO QAM Pancrelipase (Lipase-Protease- (Pancreaze), 2 CAP PO DIRECTED Primidone (Primidone), 50 MG PO DIRECTED Valsartan (Diovan), 80 MG PO QAM Scheduled PRN Oxycodone HCl (Oxycodone HCl), 5 MG PO Q6H PRN for Pain Allergies Coded Allergies: No Known Allergies (Unverified , 06/28/16) Physical Exam Vital Signs Date Time Temp Pulse Resp B/P Pulse Ox O2 Delivery O2 Flow Rate FiO2 07/24/16 16:06 59 07/24/16 15:57 60 17 135/76 99 Room Air 07/24/16 14:02 36.7 98 22 107/68 97 Room Air Pain Rating (0-10): 3.0 Physical Exam VITALS: Vitals are noted on the nurse's note and reviewed by myself. Vital signs stable. GENERAL: This is a 66-year-old male, in no acute distress but does appear to be in pain, nondiaphoretic, cachectic appearing. SKIN: Capillary reflex less than 2 seconds. HEENT: Normocephalic. PERRLA. EOMI. Nares patent. Mucous membranes dry. Neck is supple without nuchal rigidity. HEART: Regular rate and rhythm without murmurs gallops or rubs. LUNGS: Clear to auscultation bilaterally without wheezes, rales or rhonchi. No retractions or accessory muscle use. ABDOMEN: Positive bowel sounds x 4. Moderate tenderness over the epigastric region and left upper quadrant. NEURO: Patient was alert and oriented to person place and time. Medical Decision & Procedures ER Provider Diagnostic Interpretation: ABDOMEN 2VIEW W/PA CHEST RTN CLINICAL HISTORY: abdominal pain, pancreatitis, recent surge COMPARISON STUDY: 06/28/2016 FINDINGS: Lungs are clear. Diaphragms smooth. Moderate increase in fecal load of the colon. No evidence for obstructive change. IMPRESSION: Moderate increase in fecal load throughout the colon. Otherwise negative study Laboratory Results 07/24/16 15:26 Red Blood Count 4.17, Mean Corpuscular Volume 90.6, Mean Corpuscular Hemoglobin 30.7, Mean Corpuscular Hemoglobin Concent 33.9, Mean Platelet Volume 10.3, Neutrophils (%) (Auto) 80.7, Lymphocytes (%) (Auto) 10.5, Monocytes (%) (Auto) 7.0, Eosinophils (%) (Auto) 1.3, Basophils (%) (Auto) 0.2, Neutrophils # (Auto) 10.57, Lymphocytes # (Auto) 1.37, Monocytes # (Auto) 0.91, Eosinophils # (Auto) 0.17, Basophils # (Auto) 0.02 07/24/16 15:26 Test 07/24/16 15:26 07/24/16 16:40 White Blood Count 13.08 K/uL (4.8-10.8) Red Blood Count 4.17 M/uL (4.7-6.1) Hemoglobin 12.8 g/dL (14.0-18.0) Hematocrit 37.8 % (42-52) Mean Corpuscular Volume 90.6 fL (80-100) Mean Corpuscular Hemoglobin 30.7 pg (25-34) Mean Corpuscular Hemoglobin Concent 33.9 g/dl (32-36) Platelet Count 397 K/uL (130-400) Mean Platelet Volume 10.3 fL (7.4-10.4) Neutrophils (%) (Auto) 80.7 % Lymphocytes (%) (Auto) 10.5 % Monocytes (%) (Auto) 7.0 % Eosinophils (%) (Auto) 1.3 % Basophils (%) (Auto) 0.2 % Neutrophils # (Auto) 10.57 K/uL (1.4-6.5) Lymphocytes # (Auto) 1.37 K/uL (1.2-3.4) Monocytes # (Auto) 0.91 K/uL (0.11-0.59) Eosinophils # (Auto) 0.17 K/uL (0-0.5) Basophils # (Auto) 0.02 K/uL (0-0.2) RDW Standard Deviation 56.4 fL (36.4-46.3) RDW Coefficient of Variation 17.1 % (11.5-14.5) Immature Granulocyte % (Auto) 0.3 % Immature Granulocyte # (Auto) 0.04 K/uL (0.00-0.02) Prothrombin Time 12.4 SECONDS (9.0-12.0) Prothromb Time International Ratio 1.2 (0.9-1.1) Activated Partial Thromboplast Time 30.2 SECONDS (21.0-31.0) Partial Thromboplastin Ratio 1.2 Anion Gap 6.0 mmol/L (3-11) Est Creatinine Clear Calc Drug Dose 118.8 ml/min Estimated GFR () 124.9 Estimated GFR (Non- 107.8 BUN/Creatinine Ratio 23.6 (10-20) Calcium Level 9.1 mg/dl (8.5-10.1) Total Bilirubin 0.4 mg/dl (0.2-1) Aspartate Amino Transf (AST/SGOT) 29 U/L (15-37) Alanine Aminotransferase (ALT/SGPT) 92 U/L (12-78) Alkaline Phosphatase 171 U/L (45-117) Total Protein 6.8 gm/dl (6.4-8.2) Albumin 3.5 gm/dl (3.4-5.0) Globulin 3.3 gm/dl (2.5-4.0) Albumin/Globulin Ratio 1.1 (0.9-2) Amylase Level 412 U/L (25-115) Lipase 3869 U/L (73-393) Urine Color YELLOW Urine Appearance CLEAR (CLEAR) Urine pH 7.0 (4.5-7.5) Urine Specific [place] 1.010 (1.000-1.030) Urine Protein NEG (NEG) Urine Glucose (UA) NEG (NEG) Urine Ketones NEG (NEG) Urine Occult Blood NEG (NEG) Urine Nitrite NEG (NEG) Urine Bilirubin NEG (NEG) Urine Urobilinogen NEG (NEG) Urine Leukocyte Esterase NEG (NEG) Medications Administered Medications (Trade) Dose Ordered Sig/Pio Route Start Time Stop Time Status Last Admin Dose Admin Morphine Sulfate (MoRPHine SULFATE INJ) 6 mg NOW STAT IV 07/24/16 15:49 07/24/16 15:52 DC 07/24/16 16:02 6 MG Ondansetron HCl (Zofran Inj) 4 mg NOW STAT IV 07/24/16 15:49 07/24/16 15:52 DC 07/24/16 16:02 4 MG Hydromorphone HCl (Dilaudid Inj) 0.5 mg NOW STAT IV 07/24/16 17:47 07/24/16 17:48 DC 07/24/16 18:10 0.5 MG Oxycodone HCl (Roxicodone Immediate Rel Tab) 5 mg Q6H PRN PO 07/24/16 18:00 08/07/16 17:59 07/24/16 22:16 5 MG Morphine Sulfate (MoRPHine SULFATE INJ) 4 mg Q2H PRN IV 07/24/16 18:00 08/07/16 17:59 07/24/16 23:42 4 MG Medical Decision Differential diagnosis includes pancreatitis, colitis, gastroenteritis, infection, gastritis, among others. The patient was evaluated as above. Labs were drawn and IV access was obtained. Imaging studies were performed and read by radiology as above. The patient was medicated with 6 mg morphine IV and 4 mg Zofran IV. He was given a 1 L normal saline solution bolus. He did require an additional 0.5 mg Dilaudid IV. The patient was reassessed multiple times during their stay in the emergency department and remained in stable condition. The patient is a 66-year-old male with past medical history of pancreatitis and complicated surgical history who presents today complaining of recurrent pancreatitis. Previous records were reviewed. Labs revealed mild leukocytosis consistent with vomiting or infection. Urinalysis was not suggestive of infection. No concerning abnormalities. Lipase was elevated at greater than 3, 800. LFTs were mildly elevated. Abdominal series was performed and was unremarkable. I do not feel that further imaging is necessary at this time. The patient's symptoms and workup is consistent with his recurrent pancreatitis. I did speak with Dr. Weeks, who spoke with Dr. Valentine. He recommended admission to medicine for acute pancreatitis at this time, but does plan to coordinate care with [place] for possible transfer during this admission. He does feel the patient will need additional ERCP and stent placement. He recommended starting the patient on lactated Ringer's 250 mL per hour at this time. He will evaluate the patient tomorrow. Case was discussed with the [facility] hospitalist, Dr. Muniz, who agreed to evaluate the patient for admission. The patient was independently evaluated by Dr. Constantino, ED attending physician , who agreed with my assessment and treatment plan. Impression Primary Impression: Pancreatitis Departure Information Dispostion Still a Patient Condition FAIR Referrals Chino Abdul MD (PCP) Forms HOME CARE DOCUMENTATION FORM, IMPORTANT VISIT INFORMATION Patient Instructions My [facility] Problem Qualifiers Primary Impression: Pancreatitis Chronicity: acute Pancreatitis type: unspecified pancreatitis type Acute pancreatitis complication: unspecified Qualified Codes: K85.90 - Acute pancreatitis without necrosis or infection, unspecified
[2016-07-25] MEDS: LACTATED RINGER'S 1000ML 1,000 ML IV SCH ×2 (03:38→07:27)
[2016-07-25] MEDS: MoRPHine SULFATE 4 MG/ML 1 ML CARP\\VIAL IV PRN ×5 (03:42→21:35)
--- NOTE | 2016-07-25 03:56 | HISTORY & PHYSICAL EXAMINATION ---
please see h&p in separate note MTDD
[2016-07-25] MEDS ORDERED: BISACODYL 10 MG SUPP PR STA (07:37)
[2016-07-25 07:45] LABS: MEAN CELL VOLUME 90.9 fL (80-100); MEAN CORPUSCULAR HEMOGLOBIN 30.5 pg (25-34); MEAN CORPUSCULAR HGB CONC 33.5 g/dl (32-36); MEAN PLATELET VOLUME 10.4 fL (7.4-10.4); PLATELET COUNT 310 K/uL (130-400); RED BLOOD COUNT 3.74 M/uL (4.7-6.1)
--- NOTE | 2016-07-25 07:51 | Gastroenterology Progress Note ---
Progress Note Date of Service: Jul 25, 2016 Subjective Pt evaluation today including: conversation w/ patient, physical exam, chart review, lab review, review of studies, review of inpatient medication list Medications Current Inpatient Medications Medications (Trade) Dose Ordered Sig/Pio Route Start Time Stop Time Status Last Admin Dose Admin Clonazepam (Klonopin Tab) 0.5 mg DAILY@2130 PO 07/24/16 21:30 08/23/16 21:29 07/24/16 22:14 0.5 MG Oxycodone HCl (Roxicodone Immediate Rel Tab) 5 mg Q6H PRN PO 07/24/16 18:00 08/07/16 17:59 07/24/16 22:16 5 MG Primidone (Mysoline Tab) 50 mg BID PO 07/24/16 21:00 08/23/16 20:59 07/24/16 20:31 50 MG Valsartan (Diovan Tab) 80 mg QAM PO 07/25/16 09:00 08/24/16 08:59 Pantoprazole Sodium (Protonix Tab) 40 mg QAM PO 07/25/16 09:00 08/24/16 08:59 Enoxaparin Sodium (Lovenox Inj) 40 mg Q24H SQ 07/24/16 21:00 08/23/16 20:59 07/24/16 20:30 40 MG Ondansetron HCl (Zofran Inj) 4 mg Q6H PRN IV 07/24/16 18:00 08/23/16 17:59 Morphine Sulfate 4 mg 4 mg Q2H PRN IV 07/24/16 18:00 08/07/16 17:59 07/25/16 07:30 4 MG Lactated Ringer's (Lr 1000ml) 1,000 ml @ 250 mls/hr Q4H IV 07/24/16 20:15 08/23/16 17:59 07/25/16 07:27 250 MLS/HR Objective Vital Signs Date Time Temp Pulse Resp B/P Pulse Ox O2 Delivery O2 Flow Rate FiO2 07/24/16 23:45 Room Air 07/24/16 22:50 36.7 56 16 143/76 94 Room Air 07/24/16 19:59 36.7 55 16 128/75 95 Room Air 07/24/16 19:45 36.7 55 16 128/75 95 Room Air 07/24/16 19:40 36.8 56 18 138/79 96 Room Air 07/24/16 19:26 59 16 138/78 99 Room Air 07/24/16 18:10 62 16 121/64 97 07/24/16 16:06 59 07/24/16 15:57 60 17 135/76 99 Room Air 07/24/16 14:02 36.7 98 22 107/68 97 Room Air Laboratory Results Last 24 Hours Test 07/24/16 15:26 07/24/16 16:40 07/25/16 06:54 White Blood Count 13.08 K/uL Red Blood Count 4.17 M/uL Hemoglobin 12.8 g/dL Hematocrit 37.8 % Mean Corpuscular Volume 90.6 fL Mean Corpuscular Hemoglobin 30.7 pg Mean Corpuscular Hemoglobin Concent 33.9 g/dl Platelet Count 397 K/uL Mean Platelet Volume 10.3 fL Neutrophils (%) (Auto) 80.7 % Lymphocytes (%) (Auto) 10.5 % Monocytes (%) (Auto) 7.0 % Eosinophils (%) (Auto) 1.3 % Basophils (%) (Auto) 0.2 % Neutrophils # (Auto) 10.57 K/uL Lymphocytes # (Auto) 1.37 K/uL Monocytes # (Auto) 0.91 K/uL Eosinophils # (Auto) 0.17 K/uL Basophils # (Auto) 0.02 K/uL RDW Standard Deviation 56.4 fL RDW Coefficient of Variation 17.1 % Immature Granulocyte % (Auto) 0.3 % Immature Granulocyte # (Auto) 0.04 K/uL Prothrombin Time 12.4 SECONDS Prothromb Time International Ratio 1.2 Activated Partial Thromboplast Time 30.2 SECONDS Partial Thromboplastin Ratio 1.2 Sodium Level 139 mmol/L Potassium Level 4.0 mmol/L Chloride Level 104 mmol/L Carbon Dioxide Level 29 mmol/L Anion Gap 6.0 mmol/L Blood Urea Nitrogen 13 mg/dl Creatinine 0.57 mg/dl Est Creatinine Clear Calc Drug Dose 118.8 ml/min Estimated GFR () 124.9 Estimated GFR (Non- 107.8 BUN/Creatinine Ratio 23.6 Random Glucose 71 mg/dl Calcium Level 9.1 mg/dl Total Bilirubin 0.4 mg/dl Aspartate Amino Transf (AST/SGOT) 29 U/L Alanine Aminotransferase (ALT/SGPT) 92 U/L Alkaline Phosphatase 171 U/L Total Protein 6.8 gm/dl Albumin 3.5 gm/dl Globulin 3.3 gm/dl Albumin/Globulin Ratio 1.1 Amylase Level 412 U/L Lipase 3869 U/L Urine Color YELLOW Urine Appearance CLEAR Urine pH 7.0 Urine Specific [place] 1.010 Urine Protein NEG Urine Glucose (UA) NEG Urine Ketones NEG Urine Occult Blood NEG Urine Nitrite NEG Urine Bilirubin NEG Urine Urobilinogen NEG Urine Leukocyte Esterase NEG Assessment and Plan GI consult dictated job [id number] Pancreattisi--NPO, IVF continue at 250 ml per hour until determine if having minimum of 40 ml urine output per hour to reduce risk of inadequate pancreas perfusion and worsening pacnreattiis. Spoke with DR Valentine last night and he is going to speak with surgeon and GI interventionalist at [facility] to determine plan whether to transfer to [facility] or manage pancreatitis and send as outpt. abd pain--secondary to pancreatitsi improved elevated LFTS improved versus 07/06/16--follow for now constipation--by history and on KUB---dulcolax suppository .
[2016-07-25 08:09] VITALS: BP 130/78; PULSE 56; TEMP 36.5; O2SAT 92
[2016-07-25 08:13] LABS: BUN/CREATININE RATIO 15.1 (10-20); CALCIUM 8.4 mg/dl (8.5-10.1); CREATININE 0.51 mg/dl (0.60-1.40); POTASSIUM 3.7 mmol/L (3.5-5.1)
--- NOTE | 2016-07-25 08:33 | GASTROINTESTINAL CONSULTATION ---
DATE OF CONSULTATION: 07/25/2016 REASON FOR CONSULTATION: Pancreatitis. REQUESTING PHYSICIAN: Hospitalist. CHIEF COMPLAINT OF THE PATIENT: Abdominal pain. HISTORY OF PRESENT ILLNESS: I reviewed the patient's current chart and also the GI consultation on the previous admission from June 28 to 07/06/2016. The patient had recurrent pancreatitis first diagnosed about 13 years ago. He has had several episodes since April of 2016. He went to [place], had an ERCP with the pancreatic duct stent placed and he was admitted to [facility] June 28 to 07/06/2016 with sepsis thought secondary to PD stent which was removed. The patient has been on TPN during the course of his pancreatitis, eventually was off TPN and then did well on p.o. after this last hospitalization. Over the last 5 days, he had worsening abdominal pain up to 9/10 and located in the epigastrium. No bloody stools or black stools and has had no stools. Over the last few days, his weight is gradually going down. No fever, no nausea, vomiting, no GERD, no history of liver disease. He came in to the [facility] ER. Abdominal series showed increased fecal load and no CT was done secondary to multiple CT that he had in the past. The patient had a CBC: Elevated white count 13. PT and PTT are okay. CMP: ALT 92, alkaline phosphatase 121 is actually improved from an alkaline phosphatase of 319 on 07/06/2016 and ALT of 140 on 07/06/2016. Amylase was 4, total lipase 3869. The patient was given IV fluids overnight. His abdominal pain has improved. He had about 500 mL of urine output since admission, so I am not exactly sure what the time frame is on that or whether we are missing some urine output labs. The patient did have a CAT scan of the abdomen, last one abdominal and pelvic CT scan on 07/01/2016 which showed some COPD, splenomegaly, some pancreatitis, sigmoid resection noted. ALLERGIES: None. MEDICATIONS ON ADMISSION: Klonopin, Prilosec, pancreas enzymes, primidone, p.r.n. oxycodone, and Diovan. PROBLEMS AND SURGERY: Hypertension, history of melanoma, history of cholecystectomy, and colon resection. FAMILY HISTORY: Some type of cancer. SOCIAL HISTORY: Alcohol none for 13 years, tobacco in the past. REVIEW OF SYSTEMS: GENERAL: Weakness. ENT: Negative. EARS, NOSE, MOUTH, THROAT: Negative. CARDIOVASCULAR: Negative. GENITOURINARY: Negative. MUSCULOSKELETAL: Negative. INTEGUMENTARY: Negative except as noted above. NEUROLOGIC: Negative except as noted above. PSYCHIATRIC: Negative except as noted above. HEMATOLOGIC: Negative except as noted above. PHYSICAL EXAMINATION: GENERAL: Male, appears stated age in no acute distress. VITAL SIGNS: Most recent vital signs in the chart: Temp 36.7, pulse 56, respirations 16, BP 133/76, O2 saturation 94% on room air. EYES: Conjunctivae and lids normal. ENT: Oropharynx clear. NECK: Without obvious mass or thyroid enlargement. RESPIRATORY: Normal effort, clear to anterior auscultation. CARDIOVASCULAR: Regular rate and rhythm. EXTREMITIES: Without edema. ABDOMEN: Positive bowel sounds, soft, mild epigastric guarding but no rebound, no obvious organomegaly or masses are appreciated. RECTAL: Not done. LYMPH: No obvious neck or groin nodes. MUSCULOSKELETAL: Digits and nails normal. SKIN: Without obvious rash or induration anteriorly. NEUROLOGIC: Cranial nerves intact. Sensation intact. PSYCHIATRIC: Recent and remote memory good. Insight and judgment good. DATA: As above. IMPRESSION AND PLAN: 1. Pancreatitis, keep n.p.o. We will continue the IV fluid rate at 250 mL per hour until we determine if he is having a minimum of 40 mL per hour to reduce the risk of inadequate pancreas perfusion and worsening pancreatitis. I did speak with Dr. Valentine last night and he is going to speak with the surgeon and GI interventionalist at [facility] to determine plan whether transfer to [facility] or manage pancreatitis and set up further treatment as outpatient. 2. Abdominal pain secondary to pancreatitis, improved. 3. Elevated LFTs improved versus 07/06/16 follow for now. 4. Constipation by history and on KUB and Dulcolax suppository. MTDD
[2016-07-25 08:37] VITALS: O2SAT 92
[2016-07-25] MEDS ORDERED: NURSING VERBAL MED ORDER ONE (09:15)
[2016-07-25] MEDS: D5W AND 1/2NSS 1,000 ML IV SCH ×4 (09:16→23:47)
[2016-07-25] MEDS: PANTOprazole SOD 40 MG TAB PO SCH (09:18)
[2016-07-25] MEDS: PRIMIDONE 50 MG TAB PO SCH ×2 (09:18→21:32)
[2016-07-25] MEDS: VALSARTAN 80 MG TAB PO SCH (09:18)
[2016-07-25] MEDS: OXYCODONE HCL IR 5 MG TAB (IMMEDIATE RELEASE) PO PRN (10:45)
--- NOTE | 2016-07-25 10:56 | Progress Note ---
Subjective Date of Service: Jul 25, 2016. Subjective Pt evaluation today including: conversation w/ patient, physical exam, chart review, lab review, review of studies, conversation w/ hospice consultant, review of inpatient medication list Voiding: no voiding problems Feeling tired, however pain is controlled, feel frustrated of his medical condition Problem List Medical Problems: (1) Cyst of pancreas Status: Acute (2) Lactic acidosis Status: Acute (3) Leukocytosis Status: Acute (4) Pancreatitis Status: Acute (5) Pancreatitis Status: Acute (6) Pancreatitis Status: Acute (7) Sepsis Status: Acute Review of Systems Constitutional: + fatigue, + weakness, No chills, No fever, No problem reported , No sweats, No weight loss Eyes: No diplopia, No discharge, No eye pain, No redness, No worsening of vision ENT: No dental problems, No hearing loss, No nasal symptoms, No sore throat, No tinnitus, No trouble swallowing, No unusual epistaxis Respiratory: No cough, No dyspnea at rest, No dyspnea on exertion, No hemoptysis, No shortness of breath, No sputum, No wheezing Cardiac: No PND, No chest pain, No claudication, No edema, No orthopnea, No palpitations Abdomen: + pain, No constipation, No diarrhea, No nausea, No vomiting Musculoskeletal: No calf pain, No joint pain, No muscle pain, No swelling Male : No dysuria, No hematuria, No incontinence, No nocturia more than once/ night, No slowing stream, No urinary frequency Neurologic: + problem reported (resting tremor is not new), No balance problems , No memory loss, No numbness/tingling, No paralysis, No vertigo, No weakness Psychiatric: No anhedonism, No anxiety, No depression symptoms, No insomnia, No substance abuse Heme: No abnormal bleeding/bruising, No clotting problems, No night sweats, No swollen lymph nodes Endo: No excessive thirst, No excessive urination, No fatigue Skin: No bleeding, No color change, No itch, No new/changing skin lesions, No rash Objective Vital Signs Date Time Temp Pulse Resp B/P Pulse Ox O2 Delivery O2 Flow Rate FiO2 07/25/16 08:37 92 Room Air 07/25/16 08:09 36.5 56 17 130/78 92 Room Air 07/25/16 07:15 Room Air 07/24/16 23:45 Room Air 07/24/16 22:50 36.7 56 16 143/76 94 Room Air 07/24/16 19:59 36.7 55 16 128/75 95 Room Air 07/24/16 19:45 36.7 55 16 128/75 95 Room Air 07/24/16 19:40 36.8 56 18 138/79 96 Room Air 07/24/16 19:26 59 16 138/78 99 Room Air 07/24/16 18:10 62 16 121/64 97 07/24/16 16:06 59 07/24/16 15:57 60 17 135/76 99 Room Air 07/24/16 14:02 36.7 98 22 107/68 97 Room Air Physical Exam General Appearance: WD/WN, no apparent distress, + thin Eyes: normal inspection, PERRL, EOMI, sclerae normal ENT: normal ENT inspection, hearing grossly normal, pharynx normal Neck: supple, no adenopathy, thyroid normal, no JVD, no carotid bruits, trachea midline Respiratory/Chest: chest non-tender, lungs clear, normal breath sounds, no respiratory distress, no accessory muscle use Cardiovascular: regular rate, rhythm, no edema, no gallop, no JVD, no murmur Abdomen: no organomegaly, no pulsatile mass, + guarding, + tenderness (no) Extremities: normal range of motion, non-tender, normal inspection, no pedal edema, no calf tenderness, normal capillary refill, pelvis stable Neurologic/Psychiatric: grommet worker II-XII nml as tested, no motor/sensory deficits, alert, normal mood/affect, oriented x 3 Skin: normal color, warm/dry, no rash Lymphatic: no adenopathy Laboratory Results Last 24 Hours Test 07/24/16 15:26 07/24/16 16:40 07/25/16 06:54 White Blood Count 13.08 K/uL 8.00 K/uL Red Blood Count 4.17 M/uL 3.74 M/uL Hemoglobin 12.8 g/dL 11.4 g/dL Hematocrit 37.8 % 34.0 % Mean Corpuscular Volume 90.6 fL 90.9 fL Mean Corpuscular Hemoglobin 30.7 pg 30.5 pg Mean Corpuscular Hemoglobin Concent 33.9 g/dl 33.5 g/dl Platelet Count 397 K/uL 310 K/uL Mean Platelet Volume 10.3 fL 10.4 fL Neutrophils (%) (Auto) 80.7 % Lymphocytes (%) (Auto) 10.5 % Monocytes (%) (Auto) 7.0 % Eosinophils (%) (Auto) 1.3 % Basophils (%) (Auto) 0.2 % Neutrophils # (Auto) 10.57 K/uL Lymphocytes # (Auto) 1.37 K/uL Monocytes # (Auto) 0.91 K/uL Eosinophils # (Auto) 0.17 K/uL Basophils # (Auto) 0.02 K/uL RDW Standard Deviation 56.4 fL 57.1 fL RDW Coefficient of Variation 17.1 % 17.2 % Immature Granulocyte % (Auto) 0.3 % Immature Granulocyte # (Auto) 0.04 K/uL Prothrombin Time 12.4 SECONDS Prothromb Time International Ratio 1.2 Activated Partial Thromboplast Time 30.2 SECONDS Partial Thromboplastin Ratio 1.2 Sodium Level 139 mmol/L 142 mmol/L Potassium Level 4.0 mmol/L 3.7 mmol/L Chloride Level 104 mmol/L 107 mmol/L Carbon Dioxide Level 29 mmol/L 27 mmol/L Anion Gap 6.0 mmol/L 8.0 mmol/L Blood Urea Nitrogen 13 mg/dl 8 mg/dl Creatinine 0.57 mg/dl 0.51 mg/dl Est Creatinine Clear Calc Drug Dose 118.8 ml/min 132.8 ml/min Estimated GFR () 124.9 130.7 Estimated GFR (Non- 107.8 112.8 BUN/Creatinine Ratio 23.6 15.1 Random Glucose 71 mg/dl 59 mg/dl Calcium Level 9.1 mg/dl 8.4 mg/dl Total Bilirubin 0.4 mg/dl Aspartate Amino Transf (AST/SGOT) 29 U/L Alanine Aminotransferase (ALT/SGPT) 92 U/L Alkaline Phosphatase 171 U/L Total Protein 6.8 gm/dl Albumin 3.5 gm/dl Globulin 3.3 gm/dl Albumin/Globulin Ratio 1.1 Amylase Level 412 U/L Lipase 3869 U/L 1420 U/L Urine Color YELLOW Urine Appearance CLEAR Urine pH 7.0 Urine Specific [place] 1.010 Urine Protein NEG Urine Glucose (UA) NEG Urine Ketones NEG Urine Occult Blood NEG Urine Nitrite NEG Urine Bilirubin NEG Urine Urobilinogen NEG Urine Leukocyte Esterase NEG Assessment and Plan 66-year-old male admitted on 07/24/2016 because of abdominal pain Recurrent pancreatitis, unknown if idiopathic or alcohol induced: Stable, possible minimal improving Per note, GI consultation on the previous admission from June 28 to 2016. The patient had recurrent pancreatitis first diagnosed about 13 years ago. He has had several episodes since April of 2016. He went to [place], had an ERCP with the pancreatic duct stent placed and he was admitted to [facility] June 28 to 07/06/2016 with sepsis thought secondary to PD stent which was removed. The patient has been on TPN during the course of his pancreatitis, eventually was off TPN and then did well on p.o. after this last hospitalization. patient has history of cholecystectomy. He is following up with [facility] surgeon and previous GI history. Computer Typesetter Dr. Weeks who talked to Dr. Valentine from [facility] and they will make further decision regarding possible transfer patient nonemergent [facility] transfer in the next few days. Continue IV fluid Keep patient n.p.o. except meds and we will hold his pancreatic enzymes since he is n.p.o. continue pain management with IV morphine 4 mg as needed p.r.n. pain. History of essential tremor. Continue with primidone 50 mg p.o. b.i.d. History of hypertension. Continue losartan 80 mg daily. Deep venous thrombosis prophylaxis with Lovenox injections, GI prophylaxis with pantoprazole 40 mg daily. Full code. Continued [facility] stay due to: multiple IV medications needed Discharge planning: uncertain
[2016-07-25 15:15] VITALS: O2SAT 98
[2016-07-25 15:29] VITALS: BP 142/84; PULSE 53; TEMP 36.7; O2SAT 98
[2016-07-25] MEDS: CLONAZEPAM 0.5 MG TAB PO SCH (21:33)
[2016-07-25] MEDS: ENOXAPARIN 40 MG/0.4 ML SYR SQ SCH (21:33)
[2016-07-25 23:02] VITALS: BP 156/90; PULSE 55; TEMP 36.6; O2SAT 95
[2016-07-26] MEDS: MoRPHine SULFATE 4 MG/ML 1 ML CARP\\VIAL IV PRN ×6 (00:02→21:33)
[2016-07-26] MEDS: D5W AND 1/2NSS 1,000 ML IV SCH ×3 (04:49→15:15)
[2016-07-26] MEDS: PRIMIDONE 50 MG TAB PO SCH ×2 (07:53→21:32)
[2016-07-26] MEDS: VALSARTAN 80 MG TAB PO SCH (07:53)
[2016-07-26] MEDS: PANTOprazole SOD 40 MG TAB PO SCH (07:53)
[2016-07-26 07:58] LABS: BUN/CREATININE RATIO 6.7 (10-20); CALCIUM 8.3 mg/dl (8.5-10.1); CREATININE 0.58 mg/dl (0.60-1.40); MAGNESIUM 1.9 mg/dl (1.8-2.4); POTASSIUM 3.5 mmol/L (3.5-5.1)
[2016-07-26 08:05] VITALS: BP 163/89; PULSE 60; TEMP 36.5; O2SAT 95
[2016-07-26 08:12] LABS: PHOSPHORUS 2.4 mg/dl (2.5-4.9)
--- NOTE | 2016-07-26 10:52 | Gastroenterology Progress Note ---
Progress Note Date of Service: Jul 26, 2016 Subjective Pt evaluation today including: conversation w/ patient, physical exam, chart review, lab review, review of studies, review of inpatient medication list cc f/u abd pain/pancreatitis HPI Pt states abd pain is improving. Less need for IV narcotics. urine output 1250 24 hours. Review of Systems Respiratory: No shortness of breath Cardiac: No chest pain Medications Current Inpatient Medications Medications (Trade) Dose Ordered Sig/Pio Route Start Time Stop Time Status Last Admin Dose Admin Clonazepam (Klonopin Tab) 0.5 mg DAILY@2130 PO 07/24/16 21:30 08/23/16 21:29 07/25/16 21:33 0.5 MG Oxycodone HCl (Roxicodone Immediate Rel Tab) 5 mg Q6H PRN PO 07/24/16 18:00 08/07/16 17:59 07/25/16 10:45 5 MG Primidone (Mysoline Tab) 50 mg BID PO 07/24/16 21:00 08/23/16 20:59 07/26/16 07:53 50 MG Valsartan (Diovan Tab) 80 mg QAM PO 07/25/16 09:00 08/24/16 08:59 07/26/16 07:53 80 MG Pantoprazole Sodium (Protonix Tab) 40 mg QAM PO 07/25/16 09:00 08/24/16 08:59 07/26/16 07:53 40 MG Enoxaparin Sodium (Lovenox Inj) 40 mg Q24H SQ 07/24/16 21:00 08/23/16 20:59 07/25/16 21:33 40 MG Ondansetron HCl (Zofran Inj) 4 mg Q6H PRN IV 07/24/16 18:00 08/23/16 17:59 Morphine Sulfate 4 mg 4 mg Q2H PRN IV 07/24/16 18:00 08/07/16 17:59 07/26/16 07:53 4 MG Dextrose/Sodium Chloride (D5W And 1/2nss) 1,000 ml @ 200 mls/hr Q5H IV 07/25/16 09:15 08/24/16 09:14 07/26/16 10:00 200 MLS/HR Objective Vital Signs Date Time Temp Pulse Resp B/P Pulse Ox O2 Delivery O2 Flow Rate FiO2 2/9/17 08:05 36.5 60 16 163/89 95 Room Air 07/26/16 07:25 Room Air 07/25/16 23:54 Room Air 07/25/16 23:02 36.6 55 18 156/90 95 Room Air 07/25/16 15:29 36.7 53 16 142/84 98 Room Air 07/25/16 15:15 98 Room Air Physical Exam General Appearance: WD/WN, no apparent distress Respiratory/Chest: lungs clear, normal breath sounds Cardiovascular: regular rate, rhythm Abdomen: normal bowel sounds, soft, no organomegaly, + tenderness (subjective epi pain but no guarding nor rebound. ) Laboratory Results Last 24 Hours Test 07/26/16 06:45 Sodium Level 142 mmol/L Potassium Level 3.5 mmol/L Chloride Level 106 mmol/L Carbon Dioxide Level 28 mmol/L Anion Gap 8.0 mmol/L Blood Urea Nitrogen 4 mg/dl Creatinine 0.58 mg/dl Est Creatinine Clear Calc Drug Dose 116.7 ml/min Estimated GFR () 124.0 Estimated GFR (Non- 107.0 BUN/Creatinine Ratio 6.7 Random Glucose 98 mg/dl Calcium Level 8.3 mg/dl Phosphorus Level 2.4 mg/dl Magnesium Level 1.9 mg/dl Total Bilirubin 0.3 mg/dl Direct Bilirubin 0.1 mg/dl Aspartate Amino Transf (AST/SGOT) 28 U/L Alanine Aminotransferase (ALT/SGPT) 72 U/L Alkaline Phosphatase 143 U/L Total Protein 5.6 gm/dl Albumin 2.6 gm/dl Assessment and Plan Pancreattisi--DR Valentine spoke with DR Rdz the pancreas surgeon at [place]. Plan is NPO, TPN and outpt f/u for surgery. Pt already has appt for 2 weeks so reasonable to keep that. abd pain--secondary to pancreatitsi improved elevated LFTS improved versus 07/06/16--follow for now improved constipation--pt had BM post suppository yesterday .
--- NOTE | 2016-07-26 11:05 | Progress Note ---
Subjective Date of Service: Jul 26, 2016. Subjective Pt evaluation today including: conversation w/ patient, physical exam, chart review, lab review, review of studies, conversation w/ disaster recovery consultant, review of inpatient medication list Voiding: no voiding problems Out of bed and walk, current abdominal pain is 4 out of 10, dull pain, tolerable , this morning pain was 1 out of 10, no nausea vomiting, no fever and chill Problem List Medical Problems: (1) Cyst of pancreas Status: Acute (2) Lactic acidosis Status: Acute (3) Leukocytosis Status: Acute (4) Pancreatitis Status: Acute (5) Pancreatitis Status: Acute (6) Pancreatitis Status: Acute (7) Sepsis Status: Acute Review of Systems Constitutional: No chills, No fatigue, No fever, No problem reported, No sweats , No weakness, No weight loss Eyes: No diplopia, No discharge, No eye pain, No redness, No worsening of vision ENT: No dental problems, No hearing loss, No nasal symptoms, No sore throat, No tinnitus, No trouble swallowing, No unusual epistaxis Respiratory: No cough, No dyspnea at rest, No dyspnea on exertion, No hemoptysis, No shortness of breath, No sputum, No wheezing Cardiac: No PND, No chest pain, No claudication, No edema, No orthopnea, No palpitations Abdomen: + pain, + see HPI, No constipation, No diarrhea, No nausea, No vomiting Musculoskeletal: No calf pain, No joint pain, No muscle pain, No swelling Male : No dysuria, No hematuria, No incontinence, No nocturia more than once/ night, No slowing stream, No urinary frequency Neurologic: No balance problems, No memory loss, No numbness/tingling, No paralysis, No vertigo, No weakness Psychiatric: No anhedonism, No anxiety, No depression symptoms, No insomnia, No substance abuse Heme: No abnormal bleeding/bruising, No clotting problems, No night sweats, No swollen lymph nodes Endo: No excessive thirst, No excessive urination, No fatigue Skin: No bleeding, No color change, No itch, No new/changing skin lesions, No rash Objective Vital Signs Date Time Temp Pulse Resp B/P Pulse Ox O2 Delivery O2 Flow Rate FiO2 07/26/16 08:05 36.5 60 16 163/89 95 Room Air 07/26/16 07:25 Room Air 07/25/16 23:54 Room Air 07/25/16 23:02 36.6 55 18 156/90 95 Room Air 07/25/16 15:29 36.7 53 16 142/84 98 Room Air 07/25/16 15:15 98 Room Air Physical Exam General Appearance: WD/WN, no apparent distress, + thin Eyes: normal inspection, PERRL, EOMI, sclerae normal ENT: normal ENT inspection, hearing grossly normal, pharynx normal Neck: supple, no adenopathy, thyroid normal, no JVD, no carotid bruits, trachea midline Respiratory/Chest: chest non-tender, lungs clear, normal breath sounds, no respiratory distress, no accessory muscle use Cardiovascular: regular rate, rhythm, no edema, no gallop, no JVD, no murmur Abdomen: normal bowel sounds, no organomegaly, no pulsatile mass, + tenderness (minimal) Extremities: normal range of motion, non-tender, normal inspection, no pedal edema, no calf tenderness, normal capillary refill, pelvis stable Neurologic/Psychiatric: exhibit preparator II-XII nml as tested, no motor/sensory deficits, alert, normal mood/affect, oriented x 3 Skin: normal color, warm/dry, no rash Lymphatic: no adenopathy Laboratory Results Last 24 Hours Test 07/26/16 06:45 Sodium Level 142 mmol/L Potassium Level 3.5 mmol/L Chloride Level 106 mmol/L Carbon Dioxide Level 28 mmol/L Anion Gap 8.0 mmol/L Blood Urea Nitrogen 4 mg/dl Creatinine 0.58 mg/dl Est Creatinine Clear Calc Drug Dose 116.7 ml/min Estimated GFR () 124.0 Estimated GFR (Non- 107.0 BUN/Creatinine Ratio 6.7 Random Glucose 98 mg/dl Calcium Level 8.3 mg/dl Phosphorus Level 2.4 mg/dl Magnesium Level 1.9 mg/dl Total Bilirubin 0.3 mg/dl Direct Bilirubin 0.1 mg/dl Aspartate Amino Transf (AST/SGOT) 28 U/L Alanine Aminotransferase (ALT/SGPT) 72 U/L Alkaline Phosphatase 143 U/L Total Protein 5.6 gm/dl Albumin 2.6 gm/dl Assessment and Plan 66-year-old male admitted on 07/24/2016 because of abdominal pain Recurrent pancreatitis, unknown if idiopathic or alcohol induced: Stable, possible minimal improving Per note, GI consultation on the previous admission from June 28 to 2016. The patient had recurrent pancreatitis first diagnosed about 13 years ago. He has had several episodes since April of 2016. He went to [place], had an ERCP with the pancreatic duct stent placed and he was admitted to [facility] June 28 to 07/06/2016 with sepsis thought secondary to PD stent which was removed. The patient has been on TPN during the course of his pancreatitis, eventually was off TPN and then did well on p.o. after this last hospitalization. also per GI, DR Valentine spoke with DR Rdz the pancreas surgeon at [place]. Plan is NPO, TPN and outpt f/u for surgery. Discussed with patient about this, he understand and agreed, agreed to have PICC today, I have requested the pharmacy consult for TPN, I have requested the case technician consultation for home TPN Pt already has appt for 2 weeks so reasonable to keep that. abd pain--secondary to pancreatitis , continue stable and improved elevated LFTS improved versus 07/06/16--follow for now, improved constipation--improved History of essential tremor. Continue with primidone 50 mg p.o. b.i.d. History of hypertension. Continue losartan 80 mg daily. Deep venous thrombosis prophylaxis with Lovenox injections, GI prophylaxis with pantoprazole 40 mg daily. Planning discharged to home tomorrow after her home TPN setting up, and home health care and PICC insert Full code. Continued [facility] stay due to: multiple IV medications needed Discharge planning: home with home health
[2016-07-26] MEDS ORDERED: [UNRECOGNIZED DRUG - REMARK] PRN (11:11)
--- NOTE | 2016-07-26 11:22 | GASTROENTEROLOGY PROGRESS NOTE ---
DATE: 07/25/2016 I saw the patient this evening at approximately 04:30 p.m. The patient is doing well and has better pain control. Vital signs are stable. Laboratory study shows a normalization of white blood cell count and lipase is significantly improved down from 38.69 to 14.20. LFTs are also improved with alkaline phosphatase is elevated at 171 and ALT 92. Vital signs are stable and he is afebrile. I spoke with the patient at length regarding the options and the previous discussion with Dr. Herrmann regarding eventual pancreatic surgery. Based on the clinical presentation now, it would appear that the patient does not have a significant pancreatitis. I did tell the patient that the options are TPN and fasting until pancreatic surgery is completed. This would depend on his response over the next couple of days for pain control, maintenance of normal vital signs, good urine output and resolution of laboratory studies. The options at the time of surgery were based on the degree of clinical activity. We spoke a long time about the likelihood that the pancreas will need to settle down for some period of time depending on his response and that TPN with strict n.p.o. status would be important. Final recommendation was made once I discussed with Dr. Herrmann. I did speak with Dr. Herrmann last evening around 09:45 p.m., at which time we spoke about his current progress and the plan that surgery would not occur during this hospital period. From a pancreatitis standpoint, this needs to settle down, but hopefully if this is not a significant attack that would delay surgical intervention, then perhaps a planned surgery over the next couple of weeks would be optimal. Therefore, the option is to continue TPN and keep the patient locally and discharge when clinically stable with continued plans for an office visit down at [place] with Dr. Herrmann followed by appropriate timing of the pancreatic surgery. This will be discussed with the patient on . If necessary, the patient can be transferred down to Dr. Herrmann's service; however, surgery would not be performed during this hospitalization and as long as the patient is doing well clinically and we have nutrition support via TPN, it may be reasonable to continue to care for the patient here, transfer and then have outpatient continue to assess him. SANDRA
[2016-07-26] MEDS ORDERED: POTASSIUM PHOSPHATE INJ 15 MMOL in SODIUM CHLORIDE 0.9% 250ML 250 ML IV SCH (15:00)
[2016-07-26 15:40] VITALS: BP 162/72; PULSE 51; TEMP 36.8; O2SAT 97
--- NOTE | 2016-07-26 15:40 | Pharmacy Progress Note ---
Parenteral Nutrition Consult Date of Service Jul 26, 2016. Scope Pharmacy was consulted on 07/26/2016 to manage parenteral nutrition orders for this patient. Subjective The patient is currently on day 1 of central parenteral nutrition for prolonged NPO status prior to pancreatic surgery. Objective Height (Feet): 5 Height (Inches): 9.00 Weight (Kilograms): 65.000 Diet: NPO Vascular Access: PICC Intake & Output (Last 72 Hr): 07/24/16 07/25/16 07/26/16 07:59 07:59 07:59 Intake Total 1764 ml 4893 ml Output Total 500 ml 2950 ml Balance 1264 ml 1943 ml Laboratory Data (Last 24 Hr): Test 07/26/16 06:45 Alanine Aminotransferase (ALT/SGPT) 72 U/L (12-78) Albumin 2.6 gm/dl (3.4-5.0) Alkaline Phosphatase 143 U/L (45-117) Aspartate Amino Transf (AST/SGOT) 28 U/L (15-37) Blood Urea Nitrogen 4 mg/dl (7-18) Calcium Level 8.3 mg/dl (8.5-10.1) Carbon Dioxide Level 28 mmol/L (21-32) Chloride Level 106 mmol/L (98-107) Creatinine 0.58 mg/dl (0.60-1.40) Magnesium Level 1.9 mg/dl (1.8-2.4) Phosphorus Level 2.4 mg/dl (2.5-4.9) Potassium Level 3.5 mmol/L (3.5-5.1) Random Glucose 98 mg/dl (70-99) Sodium Level 142 mmol/L (136-145) Total Bilirubin 0.3 mg/dl (0.2-1) Nutrition Assessment Please refer to the Notes section of the EMR for the most recent farm machine operator note. Assessment Mr Schwarz has a complicated history for his pancreas. He was previously admitted last month for N/V. He was on a TPN and was gradually changed to an oral diet. He had a recurrence of his pancreatitis. It was decided that he must maintain a strict NPO status prior to his pancreatic surgery. Plan For day 1 of PN administration, the following will be ordered: Macronutrients Amino acids 50 grams/day Dextrose 150 grams/day Lipids 0 grams/day Micronutrients Potassium phosphate 30 mMol (potassium 15 mmol prior to TPN initiation) Potassium acetate 20 mEq Magnesium sulfate 4.06 mEq Calcium gluconate 4.65 mEq Multivitamins 10 mL Trace Elements 1 mL Additional additives: Total volume 2000 mL to be infused over 24 hrs will provide 710 kcal/day Labs, as indicated, will be ordered per protocol Pharmacy will continue to follow and adjust parenteral nutrition orders on a daily basis. Thank you for allowing us to participate in the care of this patient.
[2016-07-26] MEDS ORDERED: [UNRECOGNIZED DRUG - REMARK] ONE (15:59)
[2016-07-26] MEDS ORDERED: CUSTOM CENTRAL PN 1 BAG IV SCH (16:00)
[2016-07-26] MEDS ORDERED: DEXTROSE 10% 1,000 ML IV PRN (16:00)
[2016-07-26] MEDS: OXYCODONE HCL IR 5 MG TAB (IMMEDIATE RELEASE) PO PRN ×2 (16:53→22:39)
[2016-07-26] MEDS: ENOXAPARIN 40 MG/0.4 ML SYR SQ SCH (21:32)
[2016-07-26] MEDS: CLONAZEPAM 0.5 MG TAB PO SCH (21:32)
[2016-07-26 23:02] VITALS: BP 164/89; PULSE 54; TEMP 36.7; O2SAT 96
[2016-07-27] MEDS: MoRPHine SULFATE 4 MG/ML 1 ML CARP\\VIAL IV PRN ×3 (00:59→21:07)
[2016-07-27] MEDS: OXYCODONE HCL IR 5 MG TAB (IMMEDIATE RELEASE) PO PRN ×3 (05:56→22:20)
[2016-07-27 06:29] LABS: BASO % 0.4 %; BASO ABS # 0.04 K/uL (0-0.2); COMPLETE YES; EOS % 4.1 %; HEMATOCRIT 37.1 % (42-52); IG% 0.2 %; LYMPH ABS # 1.38 K/uL (1.2-3.4); MEAN CORPUSCULAR HEMOGLOBIN 29.9 pg (25-34); MEAN CORPUSCULAR HGB CONC 33.2 g/dl (32-36); MEAN PLATELET VOLUME 10.4 fL (7.4-10.4); MONO % 8.1 %; NEUT % 72.2 %; PLATELET COUNT 335 K/uL (130-400); RED BLOOD COUNT 4.12 M/uL (4.7-6.1); WHITE BLOOD COUNT 9.23 K/uL (4.8-10.8)
[2016-07-27 06:40] LABS: BUN/CREATININE RATIO 8.9 (10-20); C-REACTIVE PROTEIN 1.24 mg/dl (0-0.29); CALCIUM 8.4 mg/dl (8.5-10.1); CREATININE 0.61 mg/dl (0.60-1.40); MAGNESIUM 1.9 mg/dl (1.8-2.4); POTASSIUM 3.3 mmol/L (3.5-5.1)
[2016-07-27 06:48] LABS: ALB/GLOB RATIO 0.9 (0.9-2); PHOSPHORUS 3.3 mg/dl (2.5-4.9)
[2016-07-27 07:55] VITALS: BP 148/70; PULSE 51; TEMP 36.7; O2SAT 95
[2016-07-27] MEDS ORDERED: POTASSIUM CHLORIDE 20 MEQ TABCR PO ONE (08:45)
[2016-07-27 08:48] VITALS: BP 133/75; PULSE 54
[2016-07-27] MEDS: PANTOprazole SOD 40 MG TAB PO SCH (08:49)
[2016-07-27] MEDS: PRIMIDONE 50 MG TAB PO SCH ×2 (08:49→21:02)
[2016-07-27] MEDS: VALSARTAN 80 MG TAB PO SCH (08:49)
[2016-07-27 08:51] VITALS: O2SAT 95
--- NOTE | 2016-07-27 09:51 | Gastroenterology Progress Note ---
Progress Note Date of Service: Jul 27, 2016 Subjective Pt evaluation today including: conversation w/ patient, physical exam, chart review, lab review, review of studies, review of inpatient medication list cc f/u pancreatitis HPI Pt states abd pain improved. NO stools. Review of Systems Respiratory: No shortness of breath Cardiac: No chest pain Medications Current Inpatient Medications Medications (Trade) Dose Ordered Sig/Pio Route Start Time Stop Time Status Last Admin Dose Admin Clonazepam (Klonopin Tab) 0.5 mg DAILY@2130 PO 07/24/16 21:30 08/23/16 21:29 07/26/16 21:32 0.5 MG Oxycodone HCl (Roxicodone Immediate Rel Tab) 5 mg Q6H PRN PO 07/24/16 18:00 08/07/16 17:59 07/27/16 05:56 5 MG Primidone (Mysoline Tab) 50 mg BID PO 07/24/16 21:00 08/23/16 20:59 07/27/16 08:49 50 MG Valsartan (Diovan Tab) 80 mg QAM PO 07/25/16 09:00 08/24/16 08:59 07/27/16 08:49 80 MG Pantoprazole Sodium (Protonix Tab) 40 mg QAM PO 07/25/16 09:00 08/24/16 08:59 07/27/16 08:49 40 MG Enoxaparin Sodium (Lovenox Inj) 40 mg Q24H SQ 07/24/16 21:00 08/23/16 20:59 07/26/16 21:32 40 MG Ondansetron HCl (Zofran Inj) 4 mg Q6H PRN IV 07/24/16 18:00 08/23/16 17:59 Morphine Sulfate (MoRPHine SULFATE INJ) 4 mg Q2H PRN IV 07/24/16 18:00 08/07/16 17:59 07/27/16 00:59 4 MG Miscellaneous Information 1 ea 1 ea UD PRN N/A 07/26/16 11:11 08/25/16 11:10 Nutrition (Parenteral) 0 ml @ 0 mls/hr TODAY@1600 IV 07/26/16 16:00 07/27/16 15:59 07/26/16 18:44 83.3 MLS/HR Dextrose (D10w) 1,000 ml @ 0 mls/hr Q0M PRN IV 07/26/16 16:00 08/25/16 15:59 Heparin Sodium (Porcine) 5 ml 5 ml PRN PRN FLUSH 07/26/16 16:00 08/25/16 15:59 Nutrition (Parenteral) (Custom Central Pn) 0 ml @ 0 mls/hr TODAY@1600 IV 07/27/16 16:00 07/28/16 15:59 Objective Vital Signs Date Time Temp Pulse Resp B/P Pulse Ox O2 Delivery O2 Flow Rate FiO2 07/27/16 08:51 95 Room Air 07/27/16 08:48 54 133/75 07/27/16 07:55 36.7 51 16 148/70 95 Room Air 07/27/16 00:55 Room Air 07/26/16 23:02 36.7 54 16 164/89 96 Room Air 07/26/16 15:40 36.8 51 18 162/72 97 Room Air 07/26/16 15:30 Room Air Physical Exam General Appearance: WD/WN, no apparent distress Cardiovascular: no murmur Abdomen: normal bowel sounds, non tender, soft, no organomegaly, no pulsatile mass Neurologic/Psych: normal mood/affect, oriented x 3 Laboratory Results Last 24 Hours Test 07/26/16 19:26 07/27/16 01:13 07/27/16 05:42 07/27/16 06:08 Bedside Glucose 103 mg/dl 105 mg/dl 93 mg/dl White Blood Count 9.23 K/uL Red Blood Count 4.12 M/uL Hemoglobin 12.3 g/dL Hematocrit 37.1 % Mean Corpuscular Volume 90.0 fL Mean Corpuscular Hemoglobin 29.9 pg Mean Corpuscular Hemoglobin Concent 33.2 g/dl Platelet Count 335 K/uL Mean Platelet Volume 10.4 fL Neutrophils (%) (Auto) 72.2 % Lymphocytes (%) (Auto) 15.0 % Monocytes (%) (Auto) 8.1 % Eosinophils (%) (Auto) 4.1 % Basophils (%) (Auto) 0.4 % Neutrophils # (Auto) 6.66 K/uL Lymphocytes # (Auto) 1.38 K/uL Monocytes # (Auto) 0.75 K/uL Eosinophils # (Auto) 0.38 K/uL Basophils # (Auto) 0.04 K/uL RDW Standard Deviation 54.4 fL RDW Coefficient of Variation 16.5 % Immature Granulocyte % (Auto) 0.2 % Immature Granulocyte # (Auto) 0.02 K/uL Sodium Level 143 mmol/L Potassium Level 3.3 mmol/L Chloride Level 107 mmol/L Carbon Dioxide Level 29 mmol/L Anion Gap 7.0 mmol/L Blood Urea Nitrogen 5 mg/dl Creatinine 0.61 mg/dl Est Creatinine Clear Calc Drug Dose 109.5 ml/min Estimated GFR () 121.5 Estimated GFR (Non- 104.8 BUN/Creatinine Ratio 8.9 Random Glucose 81 mg/dl Calcium Level 8.4 mg/dl Phosphorus Level 3.3 mg/dl Magnesium Level 1.9 mg/dl Total Bilirubin 0.4 mg/dl Aspartate Amino Transf (AST/SGOT) 29 U/L Alanine Aminotransferase (ALT/SGPT) 72 U/L Alkaline Phosphatase 154 U/L C-Reactive Protein 1.24 mg/dl Total Protein 5.8 gm/dl Albumin 2.7 gm/dl Globulin 3.1 gm/dl Albumin/Globulin Ratio 0.9 Triglycerides Level 68 mg/dl Lipase 879 U/L Assessment and Plan Pancreattisi--TPN until DR Jara in [place] will do pancreas resection. Outpt once arrangements made. He states po pain meds so far adequate. lipase improved. abd pain--secondary to pancreatitsi improved elevated LFTS improved versus 07/06/16--alk phos up but others improved. Even if LFTS increase secondary to TPN the patient needs on TPN until pancreas surgery to avoid another bout of pancreatitis. .
[2016-07-27] MEDS: POTASSIUM CHLR 10MEQ / WTR IV SCH ×6 (13:48→21:43)
--- NOTE | 2016-07-27 15:23 | Hospitalist Progress Note ---
Hospitalist Progress Note Date of Service Jul 27, 2016. (Mariama Nash ., CALDERONC) Subjective Pt evaluation today including: conversation w/ patient, physical exam, review of inpatient medication list Pain: 3/10 sharp diffuse abdominal pain PO Intake: NPO Voiding: no voiding problems Patient complains of a sharp, 3/10 pain located diffusely across his abdomen that is constant. He states that this is much better than yesterday. He also reports having a bowel movement yesterday after receiving a Dulcolax suppository. He is currently receiving TPN as he is NPO except meds. He denies any other complaints. The patient denies fevers, chills, sweats, chest pain, palpitations, claudication, cough, wheezing, shortness of breath, nausea, vomiting, dysuria, hematuria, urinary retention, paralysis, weakness, numbness and tingling. Additional Comments: See HPI for pertinent positives and negatives. All other systems reviewed and negative. (Mariama Nash, CYNDI-C) Objective Vital Signs Date Time Temp Pulse Resp B/P Pulse Ox O2 Delivery O2 Flow Rate FiO2 07/27/16 08:51 95 Room Air 07/27/16 08:48 54 133/75 07/27/16 07:55 36.7 51 16 148/70 95 Room Air 07/27/16 07:30 Room Air 07/27/16 00:55 Room Air 07/26/16 23:02 36.7 54 16 164/89 96 Room Air 07/26/16 15:40 36.8 51 18 162/72 97 Room Air 07/26/16 15:30 Room Air (Mariama Nash, CYNDI-C) Physical Exam General Appearance: WD/WN, no apparent distress, + thin Eyes: normal inspection, PERRL, EOMI ENT: normal ENT inspection, hearing grossly normal, pharynx normal Neck: supple, no JVD, trachea midline Respiratory/Chest: normal breath sounds, no respiratory distress, + crackles ( bases bilaterally) Cardiovascular: regular rate, rhythm, no gallop, no murmur Abdomen: normal bowel sounds, non tender (subjectively tender, but palpation does not elicit tenderness), soft Extremities: non-tender, normal inspection, no pedal edema Neurologic/Psychiatric: alert, normal mood/affect, oriented x 3 Skin: normal color, warm/dry, no rash (Mariama Nash, ISABELA) Laboratory Results Last 24 Hours Test 07/26/16 19:26 07/27/16 01:13 07/27/16 05:42 07/27/16 06:08 Bedside Glucose 103 mg/dl 105 mg/dl 93 mg/dl White Blood Count 9.23 K/uL Red Blood Count 4.12 M/uL Hemoglobin 12.3 g/dL Hematocrit 37.1 % Mean Corpuscular Volume 90.0 fL Mean Corpuscular Hemoglobin 29.9 pg Mean Corpuscular Hemoglobin Concent 33.2 g/dl Platelet Count 335 K/uL Mean Platelet Volume 10.4 fL Neutrophils (%) (Auto) 72.2 % Lymphocytes (%) (Auto) 15.0 % Monocytes (%) (Auto) 8.1 % Eosinophils (%) (Auto) 4.1 % Basophils (%) (Auto) 0.4 % Neutrophils # (Auto) 6.66 K/uL Lymphocytes # (Auto) 1.38 K/uL Monocytes # (Auto) 0.75 K/uL Eosinophils # (Auto) 0.38 K/uL Basophils # (Auto) 0.04 K/uL RDW Standard Deviation 54.4 fL RDW Coefficient of Variation 16.5 % Immature Granulocyte % (Auto) 0.2 % Immature Granulocyte # (Auto) 0.02 K/uL Sodium Level 143 mmol/L Potassium Level 3.3 mmol/L Chloride Level 107 mmol/L Carbon Dioxide Level 29 mmol/L Anion Gap 7.0 mmol/L Blood Urea Nitrogen 5 mg/dl Creatinine 0.61 mg/dl Est Creatinine Clear Calc Drug Dose 109.5 ml/min Estimated GFR () 121.5 Estimated GFR (Non- 104.8 BUN/Creatinine Ratio 8.9 Random Glucose 81 mg/dl Calcium Level 8.4 mg/dl Phosphorus Level 3.3 mg/dl Magnesium Level 1.9 mg/dl Total Bilirubin 0.4 mg/dl Aspartate Amino Transf (AST/SGOT) 29 U/L Alanine Aminotransferase (ALT/SGPT) 72 U/L Alkaline Phosphatase 154 U/L C-Reactive Protein 1.24 mg/dl Total Protein 5.8 gm/dl Albumin 2.7 gm/dl Globulin 3.1 gm/dl Albumin/Globulin Ratio 0.9 Triglycerides Level 68 mg/dl Lipase 879 U/L Test 07/27/16 11:57 Bedside Glucose 107 mg/dl (Mariama Nash ., PA-C) Assessment and Plan 66 y/o male with a history of recurrent pancreatitis, HTN, essential tremor, and colon resection who presented to the ED on 07/24 with acute on chronic pancreatitis. Acute on chronic pancreatitis--h/o alcohol abuse -Admitted to med/surg -GI consulted, appreciate recs: TPN until surgeon at [place] (Dr. Jara) can see, will continue at home. Continue PO meds. No added benefit to continue pancreatic enzymes given NPO status. -Continue TPN per pharmacy -Case management on board to set up home TPN, PICC line in place -Pt scheduled to see surgeon on 08/02 -Continue oxycodone 5 mg PO q6h prn pain Constipation -Dulcolax 5 mg PO qd HTN--stable -Continue losartan 80 mg PO qd Essential tremor--stable -Continue primidone 50 mg PO BID DVT prophylaxis -Enoxaparin 40 mg SC q24h -UMESH hein and SCDs Code Status -Level I, FULL RESUSCITATION STATUS (Mariama Nash ., PA-C) Attending Attestation: Pt seen/examined, chart reviewed, and care plan d/w CYNDI Nash. I agree with the shore components of her documentation. Pt w/o complaints of abd pain, nausea or emesis. Had bowel movement yesterday. VSS, afebrile gen - nad skin - no icterus mouth - MMM heart - RRR, s1, s2 lungs - CTA b/l abd - soft, NT, ND, BS+, no HSM ext - no edema; RUE PICC clean/intact neuro - essential tremor - mild labs - lipase 879 K 3.3 A/P: 1. acute/chronic pancreatitis - improved 2. hypokalemia 3. essential tremor 4. HTN 5. constipation - add dulcolax PO daily TPN to be managed by pharmacy; they will adjust through the weekend, then hopefully d/c home on TPN on Saturday spoke with case management who has been in touch with [facility] for TPN has scheduled f/u with [facility] [place] [facility] next week for consideration of partial pancreatectomy Kelly MIMS MD (Moose Mims MD)
[2016-07-27 15:48] VITALS: BP 154/83; PULSE 54; TEMP 36.9; O2SAT 92
[2016-07-27] MEDS ORDERED: CUSTOM CENTRAL PN 1 BAG IV SCH (16:00)
[2016-07-27] MEDS: CLONAZEPAM 0.5 MG TAB PO SCH (21:02)
[2016-07-27] MEDS: ENOXAPARIN 40 MG/0.4 ML SYR SQ SCH (21:02)
[2016-07-27 22:55] VITALS: BP 156/87; PULSE 53; TEMP 36.7; O2SAT 96
[2016-07-28] MEDS: MoRPHine SULFATE 4 MG/ML 1 ML CARP\\VIAL IV PRN (02:49)
[2016-07-28] MEDS: OXYCODONE HCL IR 5 MG TAB (IMMEDIATE RELEASE) PO PRN ×3 (05:47→19:15)
[2016-07-28 07:32] LABS: HEMATOCRIT 36.8 % (42-52); MEAN CELL VOLUME 88.2 fL (80-100); MEAN PLATELET VOLUME 10.2 fL (7.4-10.4); PLATELET COUNT 291 K/uL (130-400); RED BLOOD COUNT 4.17 M/uL (4.7-6.1); WHITE BLOOD COUNT 9.04 K/uL (4.8-10.8)
[2016-07-28 07:57] VITALS: BP 130/70; PULSE 52; TEMP 36.9; O2SAT 93
[2016-07-28 08:20] LABS: BUN/CREATININE RATIO 17.6 (10-20); CALCIUM 8.7 mg/dl (8.5-10.1); CREATININE 0.58 mg/dl (0.60-1.40); MAGNESIUM 1.9 mg/dl (1.8-2.4); PHOSPHORUS 3.3 mg/dl (2.5-4.9)
[2016-07-28] MEDS: BISACODYL 5 MG TABEC PO SCH (08:34)
[2016-07-28] MEDS: PANTOprazole SOD 40 MG TAB PO SCH (08:34)
[2016-07-28] MEDS: PRIMIDONE 50 MG TAB PO SCH ×2 (08:34→21:06)
[2016-07-28 08:36] VITALS: BP 120/74; PULSE 56
[2016-07-28] MEDS: VALSARTAN 80 MG TAB PO SCH (08:36)
[2016-07-28 08:38] VITALS: O2SAT 93
--- NOTE | 2016-07-28 09:27 | Hospitalist Progress Note ---
Hospitalist Progress Note Date of Service Jul 28, 2016. (Mariama Nash ., CALDERONC) Subjective Pt evaluation today including: conversation w/ patient, physical exam, chart review, lab review, review of inpatient medication list Pain: 2/10 sharp diffuse abdominal pain PO Intake: NPO Voiding: no voiding problems Patient complains of a 2/10 sharp pain located diffusely across his abdomen. He has not had a bowel movement since 2 days ago, however he had not received his first dose of PO Dulcolax yet upon my examination. He otherwise denies any complaints. The patient denies fevers, chills, sweats, chest pain, palpitations , claudication, cough, wheezing, shortness of breath, nausea, vomiting, dysuria , hematuria, urinary retention, paralysis, weakness, numbness and tingling. Additional Comments: See HPI for pertinent positives and negatives. All other systems reviewed and negative. (Mariama Nash, CYNDI-C) Objective Vital Signs Date Time Temp Pulse Resp B/P Pulse Ox O2 Delivery O2 Flow Rate FiO2 07/28/16 08:38 93 Room Air 07/28/16 08:36 56 120/74 07/28/16 07:57 36.9 52 16 130/70 93 Room Air 07/27/16 23:25 Room Air 07/27/16 22:55 36.7 53 17 156/87 96 Room Air 07/27/16 15:48 36.9 54 18 154/83 92 Room Air 07/27/16 15:30 Room Air (Mariama Nash, CYNDI-C) Physical Exam General Appearance: WD/WN, no apparent distress, + thin Eyes: normal inspection, PERRL, EOMI ENT: normal ENT inspection, hearing grossly normal, pharynx normal Neck: supple, no JVD, trachea midline Respiratory/Chest: lungs clear, normal breath sounds, no respiratory distress Cardiovascular: regular rate, rhythm, no gallop, no murmur Abdomen: normal bowel sounds, non tender (subjectively tender, but abdomen is not TTP), soft Extremities: non-tender, normal inspection, no pedal edema Neurologic/Psychiatric: alert, normal mood/affect, oriented x 3, + pertinent finding (essential tremor) Skin: normal color, warm/dry, no rash (Mariama Nash, CYNDI-C) Laboratory Results Last 24 Hours Test 07/27/16 11:57 07/27/16 20:06 07/27/16 23:49 07/28/16 05:40 Bedside Glucose 107 mg/dl 106 mg/dl 107 mg/dl 97 mg/dl Test 07/28/16 07:21 White Blood Count 9.04 K/uL Red Blood Count 4.17 M/uL Hemoglobin 12.5 g/dL Hematocrit 36.8 % Mean Corpuscular Volume 88.2 fL Mean Corpuscular Hemoglobin 30.0 pg Mean Corpuscular Hemoglobin Concent 34.0 g/dl RDW Standard Deviation 53.2 fL RDW Coefficient of Variation 16.4 % Platelet Count 291 K/uL Mean Platelet Volume 10.2 fL Sodium Level 141 mmol/L Potassium Level 4.0 mmol/L Chloride Level 109 mmol/L Carbon Dioxide Level 26 mmol/L Anion Gap 6.0 mmol/L Blood Urea Nitrogen 10 mg/dl Creatinine 0.58 mg/dl Est Creatinine Clear Calc Drug Dose 113.7 ml/min Estimated GFR () 124.0 Estimated GFR (Non- 107.0 BUN/Creatinine Ratio 17.6 Random Glucose 86 mg/dl Calcium Level 8.7 mg/dl Phosphorus Level 3.3 mg/dl Magnesium Level 1.9 mg/dl Triglycerides Level 42 mg/dl Lipase 1037 U/L (Mariama Nash ., PA-C) Assessment and Plan 66 y/o male with a history of recurrent pancreatitis, HTN, essential tremor, and colon resection who presented to the ED on 07/24 with acute on chronic pancreatitis. Acute on chronic pancreatitis--h/o alcohol abuse -Admitted to med/surg -GI consulted, appreciate recs: TPN until surgeon at [place] (Dr. Jara) can see, will continue at home. Continue PO meds. No added benefit to continue pancreatic enzymes given NPO status. -Continue TPN per pharmacy -Case management on board to set up home TPN, PICC line in place -Pt scheduled to see surgeon on 08/02 -D/C IV morphine -Oxycodone 10 mg PO q6h prn pain Constipation -Dulcolax 5 mg PO qd HTN--stable -Continue losartan 80 mg PO qd Essential tremor--stable -Continue primidone 50 mg PO BID DVT prophylaxis -Enoxaparin 40 mg SC q24h -UMESH hose and SCDs Code Status -Level I, FULL RESUSCITATION STATUS Dispo -Medically stable for discharge, only receiving TPN IV. Awaiting confirmation of home TPN. Case management following. (Mariama Nash ., PA-C) i personally examined pt and verified all shore points w Juventino Nash PAC feeling OK no new complaints vitals noted nad breathing unlabored acute on chronic pancreatitis - titrating TPN - home once at goal (Joe Keith D.O.)
[2016-07-28 12:02] VITALS: BP 130/60; PULSE 56; TEMP 36.5; O2SAT 97
[2016-07-28 15:37] VITALS: BP 130/56; PULSE 50; TEMP 36.5; O2SAT 97
--- NOTE | 2016-07-28 15:42 | Gastroenterology Progress Note ---
Progress Note Date of Service: Jul 28, 2016 Subjective Pt evaluation today including: conversation w/ patient, conversation w/ family (), physical exam, chart review, lab review, review of studies, review of inpatient medication list CC f/u pancreatitis HPI Pt states abd pain level continues to improve. Pain controlled on oral pain meds. NO bm yet but laxative given. Medications Current Inpatient Medications Medications (Trade) Dose Ordered Sig/Pio Route Start Time Stop Time Status Last Admin Dose Admin Clonazepam (Klonopin Tab) 0.5 mg DAILY@2130 PO 07/24/16 21:30 08/23/16 21:29 07/27/16 21:02 0.5 MG Primidone (Mysoline Tab) 50 mg BID PO 07/24/16 21:00 08/23/16 20:59 07/28/16 08:34 50 MG Valsartan (Diovan Tab) 80 mg QAM PO 07/25/16 09:00 08/24/16 08:59 07/28/16 08:36 80 MG Pantoprazole Sodium (Protonix Tab) 40 mg QAM PO 07/25/16 09:00 08/24/16 08:59 07/28/16 08:34 40 MG Enoxaparin Sodium (Lovenox Inj) 40 mg Q24H SQ 07/24/16 21:00 08/23/16 20:59 07/27/16 21:02 40 MG Ondansetron HCl (Zofran Inj) 4 mg Q6H PRN IV 07/24/16 18:00 08/23/16 17:59 Miscellaneous Information 1 ea 1 ea UD PRN N/A 07/26/16 11:11 08/25/16 11:10 Dextrose (D10w) 1,000 ml @ 0 mls/hr Q0M PRN IV 07/26/16 16:00 08/25/16 15:59 Heparin Sodium (Porcine) 5 ml 5 ml PRN PRN FLUSH 07/26/16 16:00 08/25/16 15:59 Nutrition (Parenteral) (Custom Central Pn) 0 ml @ 0 mls/hr TODAY@1600 IV 07/27/16 16:00 07/28/16 15:59 07/27/16 16:07 53.3 MLS/HR Bisacodyl (Dulcolax Tab) 5 mg DAILY PO 07/28/16 09:00 08/27/16 08:59 07/28/16 08:34 5 MG Oxycodone HCl 10 mg 10 mg Q6H PRN PO 07/28/16 10:30 08/11/16 10:29 07/28/16 13:27 10 MG Nutrition (Parenteral) (Custom Central Pn) 0 ml @ 0 mls/hr TODAY@1600 IV 07/28/16 16:00 07/29/16 15:59 Objective Vital Signs Date Time Temp Pulse Resp B/P Pulse Ox O2 Delivery O2 Flow Rate FiO2 07/28/16 12:02 36.5 56 16 130/60 97 Room Air 07/28/16 08:38 93 Room Air 07/28/16 08:36 56 120/74 07/28/16 08:00 Room Air 07/28/16 07:57 36.9 52 16 130/70 93 Room Air 07/27/16 23:25 Room Air 07/27/16 22:55 36.7 53 17 156/87 96 Room Air 07/27/16 15:48 36.9 54 18 154/83 92 Room Air Physical Exam General Appearance: WD/WN, no apparent distress Abdomen: normal bowel sounds, non tender, soft, no organomegaly Neurologic/Psych: normal mood/affect, oriented x 3 Laboratory Results Last 24 Hours Test 07/27/16 20:06 07/27/16 23:49 07/28/16 05:40 07/28/16 07:21 Bedside Glucose 106 mg/dl 107 mg/dl 97 mg/dl White Blood Count 9.04 K/uL Red Blood Count 4.17 M/uL Hemoglobin 12.5 g/dL Hematocrit 36.8 % Mean Corpuscular Volume 88.2 fL Mean Corpuscular Hemoglobin 30.0 pg Mean Corpuscular Hemoglobin Concent 34.0 g/dl RDW Standard Deviation 53.2 fL RDW Coefficient of Variation 16.4 % Platelet Count 291 K/uL Mean Platelet Volume 10.2 fL Sodium Level 141 mmol/L Potassium Level 4.0 mmol/L Chloride Level 109 mmol/L Carbon Dioxide Level 26 mmol/L Anion Gap 6.0 mmol/L Blood Urea Nitrogen 10 mg/dl Creatinine 0.58 mg/dl Est Creatinine Clear Calc Drug Dose 113.7 ml/min Estimated GFR () 124.0 Estimated GFR (Non- 107.0 BUN/Creatinine Ratio 17.6 Random Glucose 86 mg/dl Calcium Level 8.7 mg/dl Phosphorus Level 3.3 mg/dl Magnesium Level 1.9 mg/dl Triglycerides Level 42 mg/dl Lipase 1037 U/L Test 07/28/16 12:06 Bedside Glucose 97 mg/dl Assessment and Plan Pancreattisi--TPN until DR Jara in [place] will do pancreas resection. Awaiting outpt TPN arrangements. Lipase worse but clinically improved. abd pain--secondary to pancreatitsi improved elevated LFTS improved versus 07/06/16--continue to follow constipation--not eating, laxative was ordered by hospitalist .
[2016-07-28] MEDS ORDERED: CUSTOM CENTRAL PN 1 BAG IV SCH (16:00)
[2016-07-28] MEDS: ENOXAPARIN 40 MG/0.4 ML SYR SQ SCH (21:08)
[2016-07-28] MEDS: CLONAZEPAM 0.5 MG TAB PO SCH (21:09)
[2016-07-29] VITALS: BP 135/70; PULSE 62; TEMP 36.8; O2SAT 95
[2016-07-29] MEDS: OXYCODONE HCL IR 5 MG TAB (IMMEDIATE RELEASE) PO PRN ×4 (03:06→22:44)
[2016-07-29 06:32] LABS: BASO % 0.4 %; BASO ABS # 0.04 K/uL (0-0.2); COMPLETE YES; EOS % 4.1 %; HEMATOCRIT 36.9 % (42-52); IG% 0.2 %; LYMPH ABS # 1.57 K/uL (1.2-3.4); MEAN CELL VOLUME 89.6 fL (80-100); MEAN CORPUSCULAR HEMOGLOBIN 30.6 pg (25-34); MEAN CORPUSCULAR HGB CONC 34.1 g/dl (32-36); MEAN PLATELET VOLUME 10.1 fL (7.4-10.4); MONO % 6.9 %; NEUT % 71.4 %; PLATELET COUNT 317 K/uL (130-400); RED BLOOD COUNT 4.12 M/uL (4.7-6.1); WHITE BLOOD COUNT 9.23 K/uL (4.8-10.8)
[2016-07-29 07:07] LABS: BUN/CREATININE RATIO 25.8 (10-20); CREATININE 0.52 mg/dl (0.60-1.40); MAGNESIUM 2.1 mg/dl (1.8-2.4); POTASSIUM 3.7 mmol/L (3.5-5.1)
[2016-07-29 07:10] LABS: ALB/GLOB RATIO 0.8 (0.9-2); PHOSPHORUS 3.3 mg/dl (2.5-4.9)
[2016-07-29 07:16] VITALS: BP 110/70; PULSE 52; TEMP 36.8; O2SAT 95
[2016-07-29 08:39] VITALS: BP 121/73; PULSE 54
[2016-07-29] MEDS: VALSARTAN 80 MG TAB PO SCH (08:40)
[2016-07-29] MEDS: PANTOprazole SOD 40 MG TAB PO SCH (08:40)
[2016-07-29] MEDS: PRIMIDONE 50 MG TAB PO SCH ×2 (08:40→21:04)
[2016-07-29] MEDS: BISACODYL 5 MG TABEC PO SCH (08:40)
--- NOTE | 2016-07-29 11:45 | Hospitalist Progress Note ---
Hospitalist Progress Note Date of Service Jul 29, 2016. (Mariama Nash, CALDERONC) Subjective Pt evaluation today including: conversation w/ patient, physical exam, chart review, lab review, review of inpatient medication list Pain: No pain currently PO Intake: NPO, receiving TPN Voiding: no voiding problems The patient currently denies any abdominal pain at rest, but he states that if he takes a deep breath, that does elicit some pain. He denies any other complaints. He is urinating without difficulty. The patient denies fevers, chills, sweats, chest pain, palpitations, claudication, cough, wheezing, shortness of breath, nausea, vomiting, abdominal pain, dysuria, hematuria, urinary retention, paralysis, weakness, numbness and tingling. Additional Comments: See HPI for pertinent positives and negatives. All other systems reviewed and negative. (Mariama Nash, ISABELA) Objective Vital Signs Date Time Temp Pulse Resp B/P Pulse Ox O2 Delivery O2 Flow Rate FiO2 07/29/16 08:39 54 121/73 07/29/16 07:45 Room Air 07/29/16 07:16 36.8 52 16 110/70 95 Room Air 07/29/16 00:00 36.8 62 18 135/70 95 Room Air 07/28/16 19:15 Room Air 07/28/16 16:00 Room Air 07/28/16 15:37 36.5 50 16 130/56 97 Room Air 07/28/16 12:02 36.5 56 16 130/60 97 Room Air (Mariama Nash, CALDERONC) Physical Exam General Appearance: WD/WN, no apparent distress, + thin Eyes: normal inspection, PERRL, EOMI ENT: normal ENT inspection, hearing grossly normal, pharynx normal Neck: supple, no JVD, trachea midline Respiratory/Chest: lungs clear, normal breath sounds, no respiratory distress Cardiovascular: regular rate, rhythm, no gallop, no murmur Abdomen: normal bowel sounds, non tender, soft Extremities: non-tender, normal inspection, no pedal edema Neurologic/Psychiatric: alert, normal mood/affect, oriented x 3 Skin: normal color, warm/dry, no rash (Mariama Nash PA-C) Laboratory Results Last 24 Hours Test 07/28/16 12:06 07/28/16 19:23 07/28/16 23:47 07/29/16 05:31 Bedside Glucose 97 mg/dl 125 mg/dl 100 mg/dl 95 mg/dl Test 07/29/16 06:12 White Blood Count 9.23 K/uL Red Blood Count 4.12 M/uL Hemoglobin 12.6 g/dL Hematocrit 36.9 % Mean Corpuscular Volume 89.6 fL Mean Corpuscular Hemoglobin 30.6 pg Mean Corpuscular Hemoglobin Concent 34.1 g/dl Platelet Count 317 K/uL Mean Platelet Volume 10.1 fL Neutrophils (%) (Auto) 71.4 % Lymphocytes (%) (Auto) 17.0 % Monocytes (%) (Auto) 6.9 % Eosinophils (%) (Auto) 4.1 % Basophils (%) (Auto) 0.4 % Neutrophils # (Auto) 6.58 K/uL Lymphocytes # (Auto) 1.57 K/uL Monocytes # (Auto) 0.64 K/uL Eosinophils # (Auto) 0.38 K/uL Basophils # (Auto) 0.04 K/uL RDW Standard Deviation 54.5 fL RDW Coefficient of Variation 16.6 % Immature Granulocyte % (Auto) 0.2 % Immature Granulocyte # (Auto) 0.02 K/uL Sodium Level 140 mmol/L Potassium Level 3.7 mmol/L Chloride Level 107 mmol/L Carbon Dioxide Level 26 mmol/L Anion Gap 7.0 mmol/L Blood Urea Nitrogen 13 mg/dl Creatinine 0.52 mg/dl Est Creatinine Clear Calc Drug Dose 126.2 ml/min Estimated GFR () 129.7 Estimated GFR (Non- 111.9 BUN/Creatinine Ratio 25.8 Random Glucose 98 mg/dl Calcium Level 9.0 mg/dl Phosphorus Level 3.3 mg/dl Magnesium Level 2.1 mg/dl Total Bilirubin 0.5 mg/dl Aspartate Amino Transf (AST/SGOT) 26 U/L Alanine Aminotransferase (ALT/SGPT) 69 U/L Alkaline Phosphatase 158 U/L Total Protein 6.1 gm/dl Albumin 2.8 gm/dl Globulin 3.3 gm/dl Albumin/Globulin Ratio 0.8 Lipase 1063 U/L (Mariama Nash, ISABELA) Assessment and Plan 66 y/o male with a history of recurrent pancreatitis, HTN, essential tremor, and colon resection who presented to the ED on 07/24 with acute on chronic pancreatitis. Acute on chronic pancreatitis--h/o alcohol abuse -Admitted to med/surg -GI consulted, appreciate recs: TPN until surgeon at [place] (Dr. Jara) can see, will continue at home. Continue PO meds. No added benefit to continue pancreatic enzymes given NPO status. -Continue TPN per pharmacy -Case management on board to set up home TPN, PICC line in place -Pt scheduled to see surgeon on 08/02 -D/C IV morphine -Oxycodone 10 mg PO q6h prn pain Constipation -Dulcolax 5 mg PO qd HTN--stable -Continue losartan 80 mg PO qd Essential tremor--stable -Continue primidone 50 mg PO BID DVT prophylaxis -Enoxaparin 40 mg SC q24h -UMESH hein and SCDs Code Status -Level I, FULL RESUSCITATION STATUS Dispo -Medically stable for discharge, only receiving TPN IV. Awaiting confirmation of home TPN. Case management following. (Mariama Nash ., PA-C) i personally examined pt and verified all shore points w A Saad PAC hasn't had BM yet, but feels constipated - but with meds from earlier feels like BM is coming vitals noted, nad, walking halls well without distress constipation - seems improving, as above chronic pancreatitis - on TPN, otherwise as above hopefully home soon (Joe Keith D.O.)
--- NOTE | 2016-07-29 14:13 | Gastroenterology Progress Note ---
Progress Note Date of Service: Jul 29, 2016 Subjective Pt evaluation today including: conversation w/ patient, conversation w/ family (), physical exam, chart review, lab review, review of studies, review of inpatient medication list cc f/u pancreatitis HPI Still some abd pain and gets flares at times but overall better than admit. NO bms yet but feel like he is going to have one soon. Review of Systems Respiratory: No shortness of breath Cardiac: No chest pain Medications Current Inpatient Medications Medications (Trade) Dose Ordered Sig/Pio Route Start Time Stop Time Status Last Admin Dose Admin Clonazepam (Klonopin Tab) 0.5 mg DAILY@2130 PO 07/24/16 21:30 08/23/16 21:29 07/28/16 21:09 0.5 MG Primidone (Mysoline Tab) 50 mg BID PO 07/24/16 21:00 08/23/16 20:59 07/29/16 08:40 50 MG Valsartan (Diovan Tab) 80 mg QAM PO 07/25/16 09:00 08/24/16 08:59 07/29/16 08:40 80 MG Pantoprazole Sodium (Protonix Tab) 40 mg QAM PO 07/25/16 09:00 08/24/16 08:59 07/29/16 08:40 40 MG Enoxaparin Sodium (Lovenox Inj) 40 mg Q24H SQ 07/24/16 21:00 08/23/16 20:59 07/28/16 21:08 40 MG Ondansetron HCl (Zofran Inj) 4 mg Q6H PRN IV 07/24/16 18:00 08/23/16 17:59 Miscellaneous Information (Pharmacy Consult) 1 ea UD PRN N/A 07/26/16 11:11 08/25/16 11:10 Heparin Sodium (Porcine) (Heparin 10 Unit/ ml 5 ml Flush) 5 ml PRN PRN FLUSH 07/26/16 16:00 08/25/16 15:59 Bisacodyl (Dulcolax Tab) 5 mg DAILY PO 07/28/16 09:00 08/27/16 08:59 07/29/16 08:40 5 MG Oxycodone HCl 10 mg 10 mg Q6H PRN PO 07/28/16 10:30 08/11/16 10:29 07/29/16 10:33 10 MG Nutrition (Parenteral) 0 ml @ 0 mls/hr TODAY@1600 IV 07/28/16 16:00 07/29/16 15:59 07/28/16 15:39 0 MLS/HR Nutrition (Parenteral) (Custom Central Pn) 0 ml @ 0 mls/hr TODAY@1600 IV 07/29/16 16:00 07/30/16 08:00 Miscellaneous Information (Pending Order) 1 ea DAILY@0700,1700 N/A 07/29/16 17:00 07/30/16 07:01 Objective Vital Signs Date Time Temp Pulse Resp B/P Pulse Ox O2 Delivery O2 Flow Rate FiO2 07/29/16 08:39 54 121/73 07/29/16 07:45 Room Air 07/29/16 07:16 36.8 52 16 110/70 95 Room Air 07/29/16 00:00 36.8 62 18 135/70 95 Room Air 07/28/16 19:15 Room Air 07/28/16 16:00 Room Air 07/28/16 15:37 36.5 50 16 130/56 97 Room Air Physical Exam General Appearance: WD/WN, no apparent distress Respiratory/Chest: normal breath sounds, no respiratory distress Cardiovascular: no murmur Abdomen: normal bowel sounds, non tender, soft, no organomegaly Laboratory Results Last 24 Hours Test 07/28/16 19:23 07/28/16 23:47 07/29/16 05:31 07/29/16 06:12 Bedside Glucose 125 mg/dl 100 mg/dl 95 mg/dl White Blood Count 9.23 K/uL Red Blood Count 4.12 M/uL Hemoglobin 12.6 g/dL Hematocrit 36.9 % Mean Corpuscular Volume 89.6 fL Mean Corpuscular Hemoglobin 30.6 pg Mean Corpuscular Hemoglobin Concent 34.1 g/dl Platelet Count 317 K/uL Mean Platelet Volume 10.1 fL Neutrophils (%) (Auto) 71.4 % Lymphocytes (%) (Auto) 17.0 % Monocytes (%) (Auto) 6.9 % Eosinophils (%) (Auto) 4.1 % Basophils (%) (Auto) 0.4 % Neutrophils # (Auto) 6.58 K/uL Lymphocytes # (Auto) 1.57 K/uL Monocytes # (Auto) 0.64 K/uL Eosinophils # (Auto) 0.38 K/uL Basophils # (Auto) 0.04 K/uL RDW Standard Deviation 54.5 fL RDW Coefficient of Variation 16.6 % Immature Granulocyte % (Auto) 0.2 % Immature Granulocyte # (Auto) 0.02 K/uL Sodium Level 140 mmol/L Potassium Level 3.7 mmol/L Chloride Level 107 mmol/L Carbon Dioxide Level 26 mmol/L Anion Gap 7.0 mmol/L Blood Urea Nitrogen 13 mg/dl Creatinine 0.52 mg/dl Est Creatinine Clear Calc Drug Dose 126.2 ml/min Estimated GFR () 129.7 Estimated GFR (Non- 111.9 BUN/Creatinine Ratio 25.8 Random Glucose 98 mg/dl Calcium Level 9.0 mg/dl Phosphorus Level 3.3 mg/dl Magnesium Level 2.1 mg/dl Total Bilirubin 0.5 mg/dl Aspartate Amino Transf (AST/SGOT) 26 U/L Alanine Aminotransferase (ALT/SGPT) 69 U/L Alkaline Phosphatase 158 U/L Total Protein 6.1 gm/dl Albumin 2.8 gm/dl Globulin 3.3 gm/dl Albumin/Globulin Ratio 0.8 Lipase 1063 U/L Test 07/29/16 11:47 Bedside Glucose 90 mg/dl Assessment and Plan Pancreattisi--TPN until DR Jara in [place] will do pancreas resection. Awaiting outpt TPN arrangements. Lipase slightly worse today but pain about the same abd pain--secondary to pancreatitsi improved overal since admit elevated LFTS improved versus 07/06/16--continue to follow--alk phos slightly higher may be TPN but needs TPN until can have pancreas operation. constipation--not eating but feels constipated--he states may be about to have a stool so no further laxative at this point. .I am going off service today at [address] Gonzales assuming GI care then.
[2016-07-29 15:15] VITALS: O2SAT 98
[2016-07-29 15:35] VITALS: BP 128/73; PULSE 49; TEMP 36.7; O2SAT 98
[2016-07-29] MEDS ORDERED: CUSTOM CENTRAL PN 1 BAG IV SCH (16:00)
[2016-07-29] MEDS: CLONAZEPAM 0.5 MG TAB PO SCH (21:03)
[2016-07-29] MEDS: ENOXAPARIN 40 MG/0.4 ML SYR SQ SCH (21:03)
[2016-07-29 23:39] VITALS: BP 122/71; PULSE 55; TEMP 36.3; O2SAT 96
[2016-07-30 06:57] LABS: HEMATOCRIT 37.2 % (42-52); MEAN CELL VOLUME 90.1 fL (80-100); MEAN CORPUSCULAR HGB CONC 33.3 g/dl (32-36); MEAN PLATELET VOLUME 10.4 fL (7.4-10.4); PLATELET COUNT 328 K/uL (130-400); RED BLOOD COUNT 4.13 M/uL (4.7-6.1); WHITE BLOOD COUNT 8.71 K/uL (4.8-10.8)
[2016-07-30 07:27] LABS: BUN/CREATININE RATIO 31.1 (10-20); CALCIUM 8.6 mg/dl (8.5-10.1); CREATININE 0.55 mg/dl (0.60-1.40); MAGNESIUM 2.2 mg/dl (1.8-2.4); POTASSIUM 3.9 mmol/L (3.5-5.1)
[2016-07-30 07:28] LABS: PHOSPHORUS 2.9 mg/dl (2.5-4.9)
[2016-07-30] MEDS: OXYCODONE HCL IR 5 MG TAB (IMMEDIATE RELEASE) PO PRN (07:31)
[2016-07-30 08:07] VITALS: BP 111/66; PULSE 60; TEMP 36.8; O2SAT 95
[2016-07-30 08:11] VITALS: O2SAT 95
[2016-07-30] MEDS: PANTOprazole SOD 40 MG TAB PO SCH (09:06)
[2016-07-30] MEDS: BISACODYL 5 MG TABEC PO SCH (09:06)
[2016-07-30] MEDS: VALSARTAN 80 MG TAB PO SCH (09:06)
[2016-07-30] MEDS: PRIMIDONE 50 MG TAB PO SCH (09:06)
[2016-07-30] MEDS ORDERED: RXC5 PO (13:03)
[2016-07-30] MEDS ORDERED: AMLO-114 PO (13:03)
--- NOTE | 2016-07-30 13:03 | Discharge Instructions ---
Discharge Instructions Admission Admission Date: Jul 24, 2016 at 18:02 Admission Diagnosis: Acute Pancreatitis. Discharge Care Plan - Problem: Medical Problems: (1) Pancreatitis Care Plan - Goal(s): Decrease discomfort Care Plan - Instructions: Activity Recommendations: no limitations Recommended Home Diet: NPO Except Ice Chips/Sips, Regular VTE Core Measure Inpt VTE Proph given/why not?: Enoxaparin (Lovenox)SQ Laboratory Results Test Results: Lipid Panel Test 07/28/16 07:21 Range/Units Triglycerides Level 42 0-150 mg/dl [facility] Recommendations: Call your doctor if: * Temperature above 101 degrees * Pain not relieved by pain medicine ordered * There is increased drainage or redness from any incision * You have any unanswered questions or concerns. Your Doctors Instructions noted above were prepared by provider Fabienne Spence.
[2016-07-30] MEDS ORDERED: OXYC-164 PO (13:10)
[2016-07-30 13:37] VITALS: BP 111/66; PULSE 60; TEMP 36.8; O2SAT 95
[2016-07-30] MEDS ORDERED: CUSTOM CENTRAL PN 1 BAG IV SCH (16:00)
--- NOTE | 2016-07-30 17:52 | Discharge Summary ---
Discharge Summary Admission Date: Jul 24, 2016 at 18:02 Discharge Date: Jul 30, 2016 Discharge Disposition: Home with services Problems/Secondary Diagnoses: Acute on chronic pancreatitis on chronic TPN Constipation HTN--stable Essential tremor--stable Medication Reconciliation New Medications: Amlodipine (Norvasc) 10 Mg Tab 10 MG PO DAILY for 30 Days, #30 TAB Oxycodone Hcl (Oxycodone Hcl) 10 Mg Tab 1 TAB PO QID PRN for Pain for 30 Days, #30 TAB Continued Medications: Clonazepam (Klonopin) 0.5 Mg Tab 0.5 MG PO DAILY@2130, TAB Omeprazole (Prilosec) 20 Mg Capcr 40 MG PO QAM, CAP Pancrelipase (Lipase-Protease- (Pancreaze) 1 Cap Cap 2 CAP PO DIRECTED, #240 CAP 0 Refills take 2 capsules with breakfast/lunch/dinner, 1 capsule for small snacks, and 2 capsules for large snacks. Primidone (Primidone) 50 Mg Tab 50 MG PO DIRECTED, #60 TAB 1 Refill take 25mg every morning and 50mg at bedtime Discontinued Medications: Oxycodone HCl (Oxycodone HCl) 5 Mg Tab 5 MG PO Q6H PRN for Pain, #15 0 Refills Valsartan (Diovan) 80 Mg Tab 80 MG PO QAM, TAB Discharge Exam Review of Systems: Constitutional: No chills, No fatigue, No fever, No problem reported, No sweats, No weakness, No weight loss Eyes: No diplopia, No discharge, No eye pain, No problem reported, No redness, No worsening of vision ENT: No dental problems, No hearing loss, No nasal symptoms, No problem reported, No sore throat, No tinnitus, No trouble swallowing, No unusual epistaxis Respiratory: No cough, No dyspnea at rest, No dyspnea on exertion, No hemoptysis, No problem reported, No shortness of breath, No sputum, No wheezing Cardiovascular: No PND, No chest pain, No claudication, No edema, No orthopnea, No palpitations, No problem reported Abdomen: No GI bleeding, No constipation, No diarrhea, No nausea, No pain, No problem reported, No vomiting Musculoskeletal: No calf pain, No joint pain, No muscle pain, No problem reported, No swelling Neurologic: No balance problems, No memory loss, No numbness/tingling, No paralysis, No problem reported, No vertigo, No weakness Psychiatric: No anhedonism, No anxiety, No depression symptoms, No insomnia , No problem reported, No substance abuse Hematologic / Lymphatic: No abnormal bleeding/bruising, No clotting problems , No night sweats, No problem reported, No swollen lymph nodes Integumentary: No bleeding, No color change, No itch, No new/changing skin lesions, No problem reported, No rash Hospital Course 66 y/o male with a history of recurrent pancreatitis, HTN, essential tremor, and colon resection who presented to the ED on 07/24 with acute on chronic pancreatitis. he had Hx of biliary duct stent that got infected and got to be removed as per patient. He was [facility] to [facility]. continued on NPO TPN was changed to cycling method He has an appointment with a pancreatic surgeon at [place] (Dr. Jara) next week. Oxycodone 10 mg PO q6h prn pain was sufficient to control pain. Valsartan was stopped due to the presence of reports of valsartan induced pancreatitis he was started on Norvasc instead. stable for discharge has no abdominal pain This includes examination of the patient, discharge planning, medication reconciliation, and communication with other providers. Discharge Instructions Please refer to the electronic Patient Visit Report (Discharge Instructions) for additional information.
[2016-07-31] MEDS ORDERED: TPN - STOP ORDER SCH (08:00)
[2016-10-15] MEDS ORDERED: CALC500C3 PO (15:25)
[2016-10-15] MEDS ORDERED: ACTUDL GJT (15:25)
[2016-10-15] MEDS ORDERED: [UNRECOGNIZED DRUG - CODE] RE (15:25)
[2016-10-16] MEDS ORDERED: SODI0.9S IV (08:02)
[2016-10-16] MEDS ORDERED: TPN IV (08:02)
[2016-10-24] MEDS ORDERED: CBCI IV (11:28)
[2016-10-25] MEDS ORDERED: HYDROMORPHONE HCL PO (12:35)
[2016-12-26] MEDS ORDERED: ESCI1TAB6 PO (10:21)
== END 2016-07-30 13:58 | disposition home health service (06) | DRG 440 ==
LOC: ENRESERVDT → ENRESERVTM → C.EDB 13:51 → C.MSW 18:02
PROVIDERS: ADMIT Hospitalist; ATTEND Internal Medicine
PROC: 02HV33Z Insertion of Infusion Device into Superior Vena Cava, Percutaneous Approach (ICD-10-PCS; principal; 2016-07-26)
DX: K85.90 Acute pancreatitis without necrosis or infection, unspecified (principal); K86.1 Other chronic pancreatitis; K59.00 Constipation, unspecified; R94.5 Abnormal results of liver function studies; I10 Essential (primary) hypertension; G25.0 Essential tremor; Z85.820 Personal history of malignant melanoma of skin; Z86.59 Personal history of other mental and behavioral disorders; Z87.891 Personal history of nicotine dependence; Z90.49 Acquired absence of other specified parts of digestive tract; Z98.890 Other specified postprocedural states; Z82.49 Family history of ischemic heart disease and other diseases of the circulatory system; Z79.899 Other long term (current) drug therapy

== ENCOUNTER → 2016-08-06 | Outpatient (CLI) | payer BC ==
[~2016-08-06] MED LIST changes: +ACTUDL GJT; +AMLO-114 PO; +AMOX1TAB43 PO; +ASPI325T39 PO; +CALC500C3 PO; +CBCI IV; -CPR500 PO; -DVN/160 PO; +ESCI10TA17 PO; +ESCI1TAB6 PO; +HYDROMORPHONE HCL PO; +INDSR/60 PO; +NRV5 PO; +OXYC-164 PO; -PANT40TA PO; +PRIM50TA29 PO; +PRLSR20 PO; -RXC5 PO; +SODI0.9S IV; +TPN IV; +VANC5CAP; -XNX25 PO; +[UNRECOGNIZED DRUG - CODE] RE
[2016-08-06 14:17] LABS: BASO % 0.6 %; BASO ABS # 0.05 K/uL (0-0.2); COMPLETE YES; EOS % 3.5 %; HEMATOCRIT 39.1 % (42-52); IG% 0.5 %; LYMPH % 18.8 %; LYMPH ABS # 1.62 K/uL (1.2-3.4); MEAN CELL VOLUME 90.9 fL (80-100); MEAN CORPUSCULAR HEMOGLOBIN 30.7 pg (25-34); MEAN CORPUSCULAR HGB CONC 33.8 g/dl (32-36); MEAN PLATELET VOLUME 10.1 fL (7.4-10.4); MONO % 10.9 %; NEUT % 65.7 %; PLATELET COUNT 433 K/uL (130-400); WHITE BLOOD COUNT 8.61 K/uL (4.8-10.8)
[2016-08-06 14:29] LABS: INR 1.2 (0.9-1.1); PROTHROMBIN TIME (PATIENT) 12.6 SECONDS (9.0-12.0)
[2016-08-06 16:37] LABS: ALT/SGPT 91 U/L (12-78); AST/SGOT 40 U/L (15-37); BLOOD UREA NITROGEN 25 mg/dl (7-18); BUN/CREATININE RATIO 44.8 (10-20); CALCIUM 8.8 mg/dl (8.5-10.1); CARBON DIOXIDE 26 mmol/L (21-32); CHLORIDE 105 mmol/L (98-107); CREATININE 0.55 mg/dl (0.60-1.40); GLUCOSE 69 mg/dl (70-99); MAGNESIUM 2.1 mg/dl (1.8-2.4); POTASSIUM 4.5 mmol/L (3.5-5.1); SODIUM 140 mmol/L (136-145)
[2016-08-06 16:39] LABS: ALB/GLOB RATIO 1.2 (0.9-2); ALKALINE PHOSPHATASE 150 U/L (45-117)
[2016-08-07 14:34] LABS: TRIGLYCERIDES 57 mg/dl (0-150)
== END | disposition home or self-care (01) ==
LOC: C.LABSPEC 12:40
PROVIDERS: ATTEND Internal Medicine Gastroenterology
DX: K85.90 Acute pancreatitis without necrosis or infection, unspecified (principal)

== ENCOUNTER → 2016-08-08 | Outpatient (CLI) | payer BC, OTHER ==
[~2016-08-08] MED LIST changes: +MAGNEVIST IV PRN
--- NOTE | 2016-08-08 11:07 | DIAGNOSTIC IMAGING REPORT ---
MRI OF THE ABDOMEN COMBO CLINICAL HISTORY: Pancreatitis. COMPARISON STUDY: 07/01/2016. TECHNIQUE: MRI of the abdomen is performed transverse T1 and T2-weighted sequences in the axial and coronal planes. Contrast enhanced sequences were acquired following the IV administration of gadolinium. FINDINGS: Lower chest: No pleural effusion is identified. The heart is normal in size. Liver: Uniform in signal. Potential mild fatty infiltration. No intrahepatic ductal distention. Gallbladder: Unremarkable. Spleen: Normal in size and signal intensity. Pancreas: Improved as compared to the prior study. Peripancreatic inflammatory change has shown near complete resolution. Interval removal of the perirectal extent. 7 mm cyst mid pancreatic body. This may represent a small IPMN. No significant and/or only a trace amount of peripancreatic infiltrative change adjacent to the pancreatic tail. Adrenal glands: Unremarkable. Kidneys: The kidneys are normal in size and without hydronephrosis. The kidneys enhance and excrete symmetrically. Bowel: Visualized portions of the small bowel and colon show no evidence of obstruction. Peritoneum: Trace abdominal ascites in paracolic gutter regions Lymphadenopathy: None. Skeletal structures: Visualized skeletal structures times are normal marrow signal intensity. IMPRESSION: 1. Generally improved evaluation of the abdomen compared to the prior CT exam. 2. 7 mm cystic nodule mid pancreatic body most likely represent a small IPMN Six-month follow-up is suggested in that regard. 3. Improving pancreatitis with only minimal residual peripancreatic infiltrative changes adjacent to the pancreatic tail. 4. Mild fatty infiltration of liver. Electronically signed by: Jett Lofton M.D. 08/08/2016 11:06 AM Dictated Date/Time: 08/08/2016 10:57 AM
== END | disposition home or self-care (01) ==
LOC: C.MRI 09:20
PROVIDERS: ATTEND Surgery
DX: K86.0 Alcohol-induced chronic pancreatitis (principal); K76.0 Fatty (change of) liver, not elsewhere classified

== ENCOUNTER → 2016-08-13 | Outpatient (CLI) | payer BC ==
[~2016-08-13] MED LIST changes: -MAGNEVIST IV PRN
[2016-08-13 13:32] LABS: BASO % 0.6 %; BASO ABS # 0.06 K/uL (0-0.2); COMPLETE YES; EOS % 2.7 %; HEMATOCRIT 40.5 % (42-52); IG% 0.4 %; LYMPH % 14.5 %; MEAN CORPUSCULAR HEMOGLOBIN 30.1 pg (25-34); MEAN CORPUSCULAR HGB CONC 33.8 g/dl (32-36); MEAN PLATELET VOLUME 10.1 fL (7.4-10.4); MONO % 8.2 %; NEUT % 73.6 %; PLATELET COUNT 474 K/uL (130-400); RED BLOOD COUNT 4.55 M/uL (4.7-6.1); WHITE BLOOD COUNT 10.36 K/uL (4.8-10.8)
[2016-08-13 13:46] LABS: INR 1.1 (0.9-1.1); PROTHROMBIN TIME (PATIENT) 12.2 SECONDS (9.0-12.0)
[2016-08-13 14:01] LABS: ALT/SGPT 113 U/L (12-78); AST/SGOT 49 U/L (15-37); BLOOD UREA NITROGEN 23 mg/dl (7-18); BUN/CREATININE RATIO 41.1 (10-20); CALCIUM 9.1 mg/dl (8.5-10.1); CARBON DIOXIDE 29 mmol/L (21-32); CHLORIDE 102 mmol/L (98-107); CREATININE 0.55 mg/dl (0.60-1.40); GLUCOSE 72 mg/dl (70-99); MAGNESIUM 2.1 mg/dl (1.8-2.4); POTASSIUM 4.3 mmol/L (3.5-5.1); SODIUM 136 mmol/L (136-145); TRIGLYCERIDES 68 mg/dl (0-150)
[2016-08-13 14:04] LABS: ALKALINE PHOSPHATASE 157 U/L (45-117)
== END | disposition home or self-care (01) ==
LOC: C.LABSPEC 13:01
PROVIDERS: ATTEND Internal Medicine Gastroenterology
DX: K85.90 Acute pancreatitis without necrosis or infection, unspecified (principal)

== ENCOUNTER → 2016-08-20 | Outpatient (CLI) | payer BC ==
[2016-08-20 13:48] LABS: BASO % 0.3 %; BASO ABS # 0.04 K/uL (0-0.2); COMPLETE YES; HEMATOCRIT 40.8 % (42-52); IG% 0.5 %; LYMPH % 12.7 %; LYMPH ABS # 1.53 K/uL (1.2-3.4); MEAN CELL VOLUME 90.1 fL (80-100); MEAN CORPUSCULAR HGB CONC 33.3 g/dl (32-36); MEAN PLATELET VOLUME 10.3 fL (7.4-10.4); MONO % 8.1 %; NEUT % 75.4 %; PLATELET COUNT 473 K/uL (130-400); RED BLOOD COUNT 4.53 M/uL (4.7-6.1); WHITE BLOOD COUNT 12.04 K/uL (4.8-10.8)
[2016-08-20 13:55] LABS: INR 1.1 (0.9-1.1); PROTHROMBIN TIME (PATIENT) 12.2 SECONDS (9.0-12.0)
[2016-08-20 14:09] LABS: ALT/SGPT 109 U/L (12-78); AST/SGOT 39 U/L (15-37); BLOOD UREA NITROGEN 23 mg/dl (7-18); BUN/CREATININE RATIO 42.5 (10-20); CALCIUM 8.9 mg/dl (8.5-10.1); CARBON DIOXIDE 27 mmol/L (21-32); CHLORIDE 105 mmol/L (98-107); CREATININE 0.55 mg/dl (0.60-1.40); GLUCOSE 70 mg/dl (70-99); POTASSIUM 4.8 mmol/L (3.5-5.1); SODIUM 141 mmol/L (136-145); TRIGLYCERIDES 66 mg/dl (0-150)
[2016-08-20 14:12] LABS: ALKALINE PHOSPHATASE 168 U/L (45-117); PHOSPHORUS 3.7 mg/dl (2.5-4.9)
== END | disposition home or self-care (01) ==
LOC: C.LABSPEC 12:24
PROVIDERS: ATTEND Internal Medicine Gastroenterology
DX: K85.90 Acute pancreatitis without necrosis or infection, unspecified (principal)

== ENCOUNTER → 2016-10-08 | Outpatient (CLI) | payer BC ==
[~2016-10-08] MED LIST changes: -AMLO-114 PO; +AMOX875T PO; -OXYC-164 PO
[2016-10-08 18:16] LABS: HEMATOCRIT 36.7 % (42-52); MEAN CELL VOLUME 94.8 fL (80-100); MEAN CORPUSCULAR HEMOGLOBIN 28.9 pg (25-34); MEAN CORPUSCULAR HGB CONC 30.5 g/dl (32-36); MEAN PLATELET VOLUME 10.6 fL (7.4-10.4); PLATELET COUNT 978 K/uL (130-400); RED BLOOD COUNT 3.87 M/uL (4.7-6.1); WHITE BLOOD COUNT 27.21 K/uL (4.8-10.8)
[2016-10-08 18:24] LABS: BLOOD UREA NITROGEN 35 mg/dl (7-18); BUN/CREATININE RATIO 75.7 (10-20); CARBON DIOXIDE 30 mmol/L (21-32); CHLORIDE 102 mmol/L (98-107); CREATININE 0.46 mg/dl (0.60-1.40); GLUCOSE 91 mg/dl (70-99); MAGNESIUM 2.1 mg/dl (1.8-2.4); POTASSIUM 3.5 mmol/L (3.5-5.1); SODIUM 142 mmol/L (136-145)
[2016-10-08 18:25] LABS: CALCIUM 9.1 mg/dl (8.5-10.1)
[2016-10-08 18:29] LABS: ALKALINE PHOSPHATASE 568 U/L (45-117); ALT/SGPT 149 U/L (12-78); AST/SGOT 88 U/L (15-37); PHOSPHORUS 3.7 mg/dl (2.5-4.9)
[2016-10-08 18:32] LABS: INR 1.1 (0.9-1.1); PROTHROMBIN TIME (PATIENT) 12.2 SECONDS (9.0-12.0)
[2016-10-08 19:15] LABS: BASO % 0.3 %; BASO ABS # 0.09 K/uL (0-0.2); COMPLETE YES; EOS % 0.7 %; LYMPH % 8.7 %; LYMPH ABS # 2.37 K/uL (1.2-3.4); MONO % 3.1 %; NEUT % 86.2 %; TOXIC GRANULATION 1+
== END | disposition home or self-care (01) ==
LOC: C.LABSPEC 17:38
PROVIDERS: ATTEND Internal Medicine
DX: K85.90 Acute pancreatitis without necrosis or infection, unspecified (principal)

== ENCOUNTER → 2016-10-15 | Outpatient (CLI) | payer BC ==
[2016-10-15 13:23] LABS: INR 1.1 (0.9-1.1); PROTHROMBIN TIME (PATIENT) 11.9 SECONDS (9.0-12.0)
[2016-10-15 13:30] LABS: ALT/SGPT 186 U/L (12-78); AST/SGOT 89 U/L (15-37); BLOOD UREA NITROGEN 30 mg/dl (7-18); BUN/CREATININE RATIO 98.1 (10-20); CARBON DIOXIDE 26 mmol/L (21-32); CHLORIDE 107 mmol/L (98-107); CREATININE 0.31 mg/dl (0.60-1.40); GLUCOSE 93 mg/dl (70-99); MAGNESIUM 2.2 mg/dl (1.8-2.4); POTASSIUM 4.3 mmol/L (3.5-5.1); SODIUM 140 mmol/L (136-145)
[2016-10-15 13:38] LABS: CALCIUM 8.8 mg/dl (8.5-10.1)
[2016-10-15 13:51] LABS: MEAN CELL VOLUME 95.5 fL (80-100); MEAN CORPUSCULAR HEMOGLOBIN 29.2 pg (25-34); MEAN CORPUSCULAR HGB CONC 30.6 g/dl (32-36); MEAN PLATELET VOLUME 10.8 fL (7.4-10.4); PLATELET COUNT 1099 K/uL (130-400); RED BLOOD COUNT 3.77 M/uL (4.7-6.1); WHITE BLOOD COUNT 16.34 K/uL (4.8-10.8)
[2016-10-15 13:52] LABS: COMPLETE YES; ECHINOCYTES 1+; EOSINOPHIL % 0.9 %; HOWELL-JOLLY BODIES OCCASIONAL; LYMPH ABS # 0.98 K/uL (1.2-3.4); META ABS # 0.28 K/uL (0-0); METAMYELOCYTE % 1.7 %; MYELOCYTE % 1.7 %; NEUTROPHILS % 81.2 %
[2016-10-15 13:57] LABS: ALKALINE PHOSPHATASE 655 U/L (45-117); PHOSPHORUS 2.6 mg/dl (2.5-4.9)
== END | disposition home or self-care (01) ==
LOC: C.LABSPEC 12:15
PROVIDERS: ATTEND Internal Medicine
DX: K85.90 Acute pancreatitis without necrosis or infection, unspecified (principal)

== ENCOUNTER → 2016-10-22 | Outpatient (CLI) | payer BC ==
[~2016-10-22] MED LIST changes: -MYS50 PO; -PANCCAP2 PO
[2016-10-22 13:55] LABS: BASO % 0.3 %; BASO ABS # 0.06 K/uL (0-0.2); COMPLETE YES; HEMATOCRIT 34.5 % (42-52); IG% 1.2 %; LYMPH % 6.6 %; LYMPH ABS # 1.27 K/uL (1.2-3.4); MEAN CELL VOLUME 92.7 fL (80-100); MEAN CORPUSCULAR HEMOGLOBIN 29.3 pg (25-34); MEAN CORPUSCULAR HGB CONC 31.6 g/dl (32-36); MEAN PLATELET VOLUME 10.9 fL (7.4-10.4); MONO % 9.9 %; PLATELET COUNT 958 K/uL (130-400); RED BLOOD COUNT 3.72 M/uL (4.7-6.1); WHITE BLOOD COUNT 19.31 K/uL (4.8-10.8)
[2016-10-22 14:06] LABS: INR 1.1 (0.9-1.1); PROTHROMBIN TIME (PATIENT) 11.9 SECONDS (9.0-12.0)
[2016-10-22 14:18] LABS: CALCIUM 9.2 mg/dl (8.5-10.1)
[2016-10-22 14:21] LABS: ALT/SGPT 170 U/L (12-78); AST/SGOT 83 U/L (15-37); BLOOD UREA NITROGEN 31 mg/dl (7-18); CARBON DIOXIDE 25 mmol/L (21-32); CHLORIDE 104 mmol/L (98-107); CREATININE 0.34 mg/dl (0.60-1.40); GLUCOSE 74 mg/dl (70-99); MAGNESIUM 1.9 mg/dl (1.8-2.4); POTASSIUM 4.3 mmol/L (3.5-5.1); SODIUM 138 mmol/L (136-145)
[2016-10-22 14:30] LABS: ALKALINE PHOSPHATASE 714 U/L (45-117); PREALBUMIN 11.5 mg/dl (20-40)
== END | disposition home or self-care (01) ==
LOC: C.LABSPEC 12:21
PROVIDERS: ATTEND Internal Medicine
DX: K85.90 Acute pancreatitis without necrosis or infection, unspecified (principal); Z79.899 Other long term (current) drug therapy

== ENCOUNTER → 2016-10-26 | Outpatient (CLI) | payer BC ==
[~2016-10-26] MED LIST changes: -CALC500C3 PO; -CBCI IV
--- NOTE | 2016-10-26 10:50 | DIAGNOSTIC IMAGING REPORT ---
ABDOMINAL ULTRASOUND COMPLETE HISTORY: Abnormal liver function test ELEVATED LIVER ENZYMES. COMPARISON: None. FINDINGS: Pancreas: The pancreas demonstrates a normal echotexture. Liver: Fatty infiltration Gallbladder: No gallbladder wall thickening. No gallstones. CBD: 5 mm Kidneys: No hydronephrosis. Spleen: Prior splenectomy. 11 x 10 cm complex mass in the region of the splenic fossa. Possibly of a postprocedural hematoma is considered. Aorta: Normal in caliber. IVC: Patent. IMPRESSION: 1. 10 cm complex heterogeneous mass/hematoma in the region of the patient's prior splenectomy. 2. Fatty infiltration of liver. 3. Prior cholecystectomy Electronically signed by: Jett Lofton M.D. 10/26/2016 10:48 AM Dictated Date/Time: 10/26/2016 10:42 AM
== END | disposition home or self-care (01) ==
LOC: C.ULTR 09:32
PROVIDERS: ATTEND Surgery
DX: R74.8 Abnormal levels of other serum enzymes (principal); R18.8 Other ascites; K76.0 Fatty (change of) liver, not elsewhere classified

== ENCOUNTER → 2016-10-28 | Outpatient (CLI) | payer BC ==
[2016-10-28 10:16] LABS: BASO % 0.4 %; BASO ABS # 0.05 K/uL (0-0.2); COMPLETE YES; EOS % 3.1 %; HEMATOCRIT 33.9 % (42-52); IG% 0.8 %; LYMPH ABS # 1.42 K/uL (1.2-3.4); MEAN CELL VOLUME 90.9 fL (80-100); MEAN PLATELET VOLUME 11.1 fL (7.4-10.4); MONO % 10.8 %; NEUT % 74.9 %; PLATELET COUNT 871 K/uL (130-400); RED BLOOD COUNT 3.73 M/uL (4.7-6.1); WHITE BLOOD COUNT 14.18 K/uL (4.8-10.8)
[2016-10-28 10:43] LABS: ALT/SGPT 177 U/L (12-78); AST/SGOT 119 U/L (15-37); BLOOD UREA NITROGEN 29 mg/dl (7-18); BUN/CREATININE RATIO 98.3 (10-20); CALCIUM 8.4 mg/dl (8.5-10.1); CARBON DIOXIDE 29 mmol/L (21-32); CHLORIDE 105 mmol/L (98-107); GLUCOSE 79 mg/dl (70-99); POTASSIUM 4.3 mmol/L (3.5-5.1); SODIUM 139 mmol/L (136-145)
[2016-10-28 10:49] LABS: ALB/GLOB RATIO 0.6 (0.9-2); ALKALINE PHOSPHATASE 995 U/L (45-117)
== END | disposition home or self-care (01) ==
LOC: C.LABSPEC 12:36
PROVIDERS: ATTEND Internal Medicine Infectious Disease
DX: M86.9 Osteomyelitis, unspecified (principal); K86.89 Other specified diseases of pancreas

== ENCOUNTER 2016-11-04 18:49 | Emergency (ER) | payer BC ==
[~2016-11-04] VITALS: Ht 172.7 cm; Wt 62.8 kg
[~2016-11-04 18:49] MED LIST changes: -AMOX1TAB43 PO; -AMOX875T PO; -ASPI325T39 PO; -ESCI10TA17 PO; -ESCI1TAB6 PO; -INDSR/60 PO; -NRV5 PO; -PRIM50TA29 PO; -VANC5CAP
[2016-11-04 18:53] VITALS: TEMP 36.7; Ht 172.7 cm; Wt 62.8 kg
--- NOTE | 2016-11-04 19:13 | EMERGENCY ROOM VISIT NOTE ---
History Report prepared by Radha: Gilmer Hu Under the Supervision of: Dr. Rufus Martinez M.D. First contact with patient: 18:57 Chief Complaint: PICC LINE CLOTTED Stated Complaint: ? PICC LINE OCCLUDED History of Present Illness The patient is a 66 year old male who presents to the Emergency Room with complaints of a clogged PICC line in his right arm. [facility] this morning after a 5 day stay and states he noticed the swelling shortly after he was discharged. The patient reports his tried to flush the PICC line with saline earlier today, but she was not able to get it to flush. She tried to administer TPN, but that did not work either. The patient denies any pain in the arm. He has a complicated past medical history, that includes chronic pancreatitis and a colon resection, but notes he is still having urine output. He has chronic abdominal pain, but states the pain does not bother him anymore than usual. He has a baseline tremor that is worse with recent medical issues. The patient is not currently on any blood thinners. Source of History: patient Onset: this morning Position: arm (right) Symptom Intensity: 0/10 Timing: constant Associated Symptoms: + abdominal pain, No urinary symptoms Review of Systems See HPI for pertinent positives & negatives. A total of 10 systems reviewed and were otherwise negative. Past Medical & Surgical Medical Problems: (1) Acute pancreatitis (2) Hypertension (3) Melanoma (4) Pancreatitis (5) Pancreatitis due to biliary obstruction Surgical Problems: (1) History of back surgery (2) S/P cholecystectomy (3) S/P colon resection Family History FH: cancer FH: gallbladder disease FH: heart disease Hypertension Social History Smoking Status: Never Smoker Alcohol Use: none Drug Use: none Marital Status: Housing Status: lives with significant other Occupation Status: retired Current/Historical Medications Scheduled Acetaminophen (Acetaminophen), 20 ML GJT every 4 hours Aspirin (Aspirin), 300 MG RE DAILY Clonazepam (Klonopin), 0.5 MG PO DAILY@2130 Omeprazole (Prilosec), 40 MG PO QAM Tpn Infusion (Tpn Infusion), 1 EA IV DAILY Scheduled PRN [hydromorphone hcl], 4 ML JT Q4 PRN for Pain Miscellaneous Medications Sodium Chloride (Gu Irrigant) (Sodium Chloride 0.9%), IV Vancomycin Hcl (Vancomycin) Allergies Coded Allergies: No Known Allergies (Unverified , 11/04/16) Physical Exam Vital Signs Date Time Temp Pulse Resp B/P Pulse Ox O2 Delivery O2 Flow Rate FiO2 11/04/16 21:06 68 16 94/67 98 11/04/16 19:22 65 18 96 Room Air 11/04/16 18:53 36.7 18 90/59 Room Air Physical Exam GENERAL: Patient is chronically unwell appearing, frail, and cachectic. HEENT: No acute trauma, normocephalic atraumatic, mucous membranes moist, no nasal congestion, no scleral icterus. NECK: No stridor, no adenopathy, no meningismus, trachea is midline. LUNGS: No dyspnea. Clear to auscultation and equal bilaterally. No wheeze, no rhonchi. HEART: Regular rate and rhythm. No murmurs, rubs, gallops appreciated. ABDOMEN: Epigastric ostomy, drain with bloody fluid in left upper abdomen, j tube in left lower abdomen. Soft, nontender, bowel sounds positive, no masses appreciated, no peritonitis. BACK: No midline tenderness, no CVA tenderness EXTREMITIES: PICC line in right arm, mild swelling to right hand when compared to left, no erythema around PICC line. Pulses are normal. Normal motion all extremities, no cyanosis, no edema. NEUROLOGIC: Alert and oriented, no acute motor or sensory deficits, no focal weakness, cranial nerves grossly intact. SKIN: No rash, no jaundice, no diaphoresis. Medical Decision & Procedures ER Provider Diagnostic Interpretation: This Ultrasound was reviewed and interpreted by the radiologist and reviewed by myself. RIGHT UPPER EXTREMITY VENOUS DOPPLER IMPRESSION: No DVT within the right upper extremity. Electronically signed by: Darien Hayes M.D. 11/04/2016 7:56 PM ED Course 1899: The patient was evaluated in room B03B. A complete history and physical exam was performed. 2006: I reevaluated the patient. He is feeling well and does not need anything right now. We are waiting on the IV team. 2034: I reevaluated the patient. He is feeling well and would like to go home. I discussed his results and discharge instructions and he verbalized complete understanding and agreement. Medical Decision 66 yr old male arrives for evaluation of PICC line malfunction and swelling to right hand. Mild swelling noted compared to left. Excellent pulses without pain nor neuro deficits. US without evidence of DVT. IV team down and line functioning well. Patient in no distress and feels well. Notes chronic abdominal pain at baseline without change. Both he and comfortable with going home. Aware of symptoms requiring RTED. Impression Primary Impression: Occluded PICC line Additional Impression: Swelling of right upper extremity Scribe Attestation The scribe's documentation has been prepared under my direction and personally reviewed by me in its entirety. I confirm that the note above accurately reflects all work, treatment, procedures, and medical decision making performed by me. Departure Information Dispostion Home / Self-Care Referrals No Doctor, Assigned (PCP) Patient Instructions My [facility] Additional Instructions We are always here to help. Return if PICC stops working or if other concerning symptoms develop, such as fevers, discoloration of arm or severe pain. Problem Qualifiers Primary Impression: Occluded PICC line Encounter type: initial encounter Qualified Codes: T82.898A - Other specified complication of vascular prosthetic devices, implants and grafts, initial encounter
[2016-11-04] MEDS ORDERED: VANC5CAP (19:25)
--- NOTE | 2016-11-04 19:57 | DIAGNOSTIC IMAGING REPORT ---
RIGHT UPPER EXTREMITY VENOUS DOPPLER HISTORY: right arm swelling with picc line in place Right COMPARISON STUDY: None. FINDINGS: The right internal jugular vein is patent. There is normal flow within the right subclavian vein. There is normal flow and compressibility within the right axillary, basilic, brachial, radial, ulnar, and visualized cephalic veins. The right PICC is identified within the basilic, axillary, and subclavian veins. IMPRESSION: No DVT within the right upper extremity. Electronically signed by: Darien Hayes M.D. 11/04/2016 7:56 PM Dictated Date/Time: 11/04/2016 7:55 PM
[2016-11-04 21:06] VITALS: BP 94/67; PULSE 68; O2SAT 98
[2016-12-26] MEDS ORDERED: ESCI1TAB6 PO (10:21)
== END 2016-11-04 21:06 | disposition home or self-care (01) ==
LOC: C.EDB 18:51
DX: T82.898A Other specified complication of vascular prosthetic devices, implants and grafts, initial encounter (principal); X58.XXXA Exposure to other specified factors, initial encounter; I10 Essential (primary) hypertension; K86.1 Other chronic pancreatitis; Z85.820 Personal history of malignant melanoma of skin; Z90.49 Acquired absence of other specified parts of digestive tract; Z98.890 Other specified postprocedural states; Z79.82 Long term (current) use of aspirin; Z79.899 Other long term (current) drug therapy; Z80.9 Family history of malignant neoplasm, unspecified; Z83.79 Family history of other diseases of the digestive system; Z82.49 Family history of ischemic heart disease and other diseases of the circulatory system

== ENCOUNTER → 2016-11-07 | Outpatient (CLI) | payer BC ==
[~2016-11-07] MED LIST changes: +AMOX1TAB43 PO; +AMOX875T PO; +ASPI325T39 PO; +ESCI10TA17 PO; +ESCI1TAB6 PO; +INDSR/60 PO; +NRV5 PO; +PRIM50TA29 PO; +VANC5CAP
[2016-11-07 12:54] LABS: INR 1.1 (0.9-1.1); PROTHROMBIN TIME (PATIENT) 11.7 SECONDS (9.0-12.0)
[2016-11-07 13:01] LABS: AST/SGOT 82 U/L (15-37); BLOOD UREA NITROGEN 26 mg/dl (7-18); BUN/CREATININE RATIO 56.3 (10-20); CARBON DIOXIDE 22 mmol/L (21-32); CHLORIDE 109 mmol/L (98-107); CREATININE 0.46 mg/dl (0.60-1.40); GLUCOSE 62 mg/dl (70-99); MAGNESIUM 1.9 mg/dl (1.8-2.4); POTASSIUM 4.4 mmol/L (3.5-5.1); SODIUM 139 mmol/L (136-145)
[2016-11-07 13:05] LABS: CALCIUM 8.4 mg/dl (8.5-10.1)
[2016-11-07 13:16] LABS: BASO % 0.6 %; BASO ABS # 0.11 K/uL (0-0.2); COMPLETE YES; HEMATOCRIT 29.7 % (42-52); IG% 1.5 %; LYMPH % 8.6 %; LYMPH ABS # 1.45 K/uL (1.2-3.4); MEAN CELL VOLUME 90.3 fL (80-100); MEAN CORPUSCULAR HEMOGLOBIN 29.8 pg (25-34); MEAN PLATELET VOLUME 11.4 fL (7.4-10.4); MONO % 17.7 %; NEUT % 67.6 %; PLATELET COUNT 1256 K/uL (130-400); PLT ESTIMATE INCREASED; POLYCHROMASIA 1+; RED BLOOD COUNT 3.29 M/uL (4.7-6.1); TARGET CELLS 1+; WHITE BLOOD COUNT 16.94 K/uL (4.8-10.8)
[2016-11-07 13:17] LABS: ALB/GLOB RATIO 0.5 (0.9-2); ALKALINE PHOSPHATASE 996 U/L (45-117); ALT/SGPT 133 U/L (12-78); PHOSPHORUS 3.5 mg/dl (2.5-4.9); PREALBUMIN 6.3 mg/dl (20-40)
== END | disposition home or self-care (01) ==
LOC: C.LABSPEC 12:23
PROVIDERS: ATTEND Internal Medicine
DX: K85.90 Acute pancreatitis without necrosis or infection, unspecified (principal)

== ENCOUNTER → 2016-11-13 | Outpatient (CLI) | payer BC ==
[2016-11-13 13:58] LABS: INR 1.1 (0.9-1.1); PROTHROMBIN TIME (PATIENT) 11.7 SECONDS (9.0-12.0)
[2016-11-13 14:01] LABS: HEMATOCRIT 29.4 % (42-52); MEAN CELL VOLUME 89.1 fL (80-100); MEAN CORPUSCULAR HEMOGLOBIN 30.3 pg (25-34)
[2016-11-13 14:23] LABS: CALCIUM 8.7 mg/dl (8.5-10.1)
[2016-11-13 14:29] LABS: ALT/SGPT 200 U/L (12-78); AST/SGOT 136 U/L (15-37); BLOOD UREA NITROGEN 31 mg/dl (7-18); BUN/CREATININE RATIO 72.9 (10-20); CARBON DIOXIDE 24 mmol/L (21-32); CHLORIDE 106 mmol/L (98-107); CREATININE 0.42 mg/dl (0.60-1.40); GLUCOSE 71 mg/dl (70-99); MAGNESIUM 2.1 mg/dl (1.8-2.4); PHOSPHORUS 2.7 mg/dl (2.5-4.9); POTASSIUM 4.2 mmol/L (3.5-5.1); SODIUM 138 mmol/L (136-145)
[2016-11-13 14:31] LABS: PLATELET COUNT 1295 K/uL (130-400)
[2016-11-13 14:32] LABS: BASO ABS # 0.16 K/uL (0-0.2); BASOPHIL % 0.9 % (0-2); COMPLETE YES; EOSINOPHIL % 0.9 %; LYMPH ABS # 1.25 K/uL (1.2-3.4); MEAN PLATELET VOLUME 10.4 fL (7.4-10.4); MYELOCYTE % 0.9 %; NEUTROPHILS % 79.8 %; PLT ESTIMATE INCREASED; TARGET CELLS 2+
[2016-11-13 14:41] LABS: ALKALINE PHOSPHATASE 1338 U/L (45-117); PREALBUMIN 10.5 mg/dl (20-40)
== END | disposition home or self-care (01) ==
LOC: C.LABSPEC 12:17
PROVIDERS: ATTEND Internal Medicine
DX: K85.90 Acute pancreatitis without necrosis or infection, unspecified (principal)

== ENCOUNTER 2016-11-19 09:26 | Emergency (ER) | payer BC ==
[~2016-11-19] VITALS: Ht 172.7 cm; Wt 54.3 kg
[~2016-11-19 09:26] MED LIST changes: -AMOX1TAB43 PO; -AMOX875T PO; -ASPI325T39 PO; -ESCI10TA17 PO; -ESCI1TAB6 PO; -INDSR/60 PO; -NRV5 PO; -PRIM50TA29 PO
[2016-11-19 09:31] VITALS: TEMP 36.7; Ht 172.7 cm; Wt 54.3 kg
--- NOTE | 2016-11-19 10:08 | EMERGENCY ROOM VISIT NOTE ---
History Report prepared by Radha: Mishel Chavez Under the Supervision of: Dr. Eloy Constantino M.D. First contact with patient: 09:34 Chief Complaint: PICC LINE CLOTTED Stated Complaint: BLOCKED PICC LINE History of Present Illness The patient is a 66 year old male who presents to the Emergency Room with complaints of constant clotting of his PICC line since last night. The patient has a PICC line in place in his right upper extremity. It was placed by the IV team at [facility] in Jun/Jul for TPN. He states that he has been having some trouble flushing it for the past two weeks. Last night he was unable to flush it at all. The patient also notes that he was supposed to have blood work done this morning for his TPN. Source of History: patient Onset: last night Position: arm (right) Quality: other (clotted) Timing: constant Review of Systems See HPI for pertinent positives & negatives. A total of 10 systems reviewed and were otherwise negative. Past Medical & Surgical Medical Problems: (1) Acute pancreatitis (2) Hypertension (3) Melanoma (4) Pancreatitis (5) Pancreatitis due to biliary obstruction (6) Sacral wound Surgical Problems: (1) History of back surgery (2) S/P cholecystectomy (3) S/P colon resection Family History FH: cancer FH: gallbladder disease FH: heart disease Hypertension Social History Smoking Status: Former Smoker Alcohol Use: none Drug Use: none Marital Status: Housing Status: lives with significant other Occupation Status: retired Current/Historical Medications Scheduled Aspirin (Aspirin Ec), 325 MG PO DAILY Clonazepam (Klonopin), 0.5 MG PO DAILY@2130 Omeprazole (Prilosec), 40 MG PO BID Tpn Infusion (Tpn Infusion), 1 EA IV DAILY Scheduled PRN [hydromorphone hcl], 4 ML PO Q4 PRN for Pain Allergies Coded Allergies: No Known Allergies (Unverified , 11/19/16) Physical Exam Vital Signs Date Time Temp Pulse Resp B/P (MAP) Pulse Ox O2 Delivery O2 Flow Rate FiO2 11/19/16 12:25 70 18 97 11/19/16 11:25 66 18 106/60 95 Room Air 11/19/16 09:31 36.7 76 18 90/62 100 Room Air Physical Exam GENERAL: Patient is a healthy-appearing well-nourished 66 year old male. HEAD: Normocephalic atraumatic EYES: Ocular movements intact pupils equal and react to light OROPHARYNX mucous membranes are moist no exudates present no erythema or edema present NECK: Supple no nuchal rigidity CHEST: Good equal expansion LUNGS: Clear and equal to auscultation CARDIAC: Normal S1 and S2 ABDOMEN: Soft nontender no guarding BACK: No CVA tenderness EXTREMITIES: No pain upon palpation normal muscle strength in all groups no clubbing cyanosis or edema. PICC line in place in the right upper extremity. NEURO: Patient is following commands is answering questions appropriately. Alert and oriented x3 Cranial Nerves 2-12 grossly intact Medical Decision & Procedures Laboratory Results 11/19/16 11:40 Red Blood Count 3.83, Mean Corpuscular Volume 88.8, Mean Corpuscular Hemoglobin 30.0, Mean Corpuscular Hemoglobin Concent 33.8, Mean Platelet Volume 10.2, Neutrophils (%) (Auto) 75.4, Lymphocytes (%) (Auto) 9.3, Monocytes (%) (Auto) 10.1, Eosinophils (%) (Auto) 2.1, Basophils (%) (Auto) 0.6, Neutrophils # (Auto ) 16.01, Lymphocytes # (Auto) 1.96, Monocytes # (Auto) 2.13, Eosinophils # (Auto ) 0.44, Basophils # (Auto) 0.12 11/19/16 11:40 Test 11/19/16 11:40 11/19/16 12:15 White Blood Count 21.18 K/uL (4.8-10.8) Red Blood Count 3.83 M/uL (4.7-6.1) Hemoglobin 11.5 g/dL (14.0-18.0) Hematocrit 34.0 % (42-52) Mean Corpuscular Volume 88.8 fL (80-100) Mean Corpuscular Hemoglobin 30.0 pg (25-34) Mean Corpuscular Hemoglobin Concent 33.8 g/dl (32-36) Platelet Count 1217 K/uL (130-400) Mean Platelet Volume 10.2 fL (7.4-10.4) Neutrophils (%) (Auto) 75.4 % Lymphocytes (%) (Auto) 9.3 % Monocytes (%) (Auto) 10.1 % Eosinophils (%) (Auto) 2.1 % Basophils (%) (Auto) 0.6 % Neutrophils # (Auto) 16.01 K/uL (1.4-6.5) Lymphocytes # (Auto) 1.96 K/uL (1.2-3.4) Monocytes # (Auto) 2.13 K/uL (0.11-0.59) Eosinophils # (Auto) 0.44 K/uL (0-0.5) Basophils # (Auto) 0.12 K/uL (0-0.2) RDW Standard Deviation 55.9 fL (36.4-46.3) RDW Coefficient of Variation 17.3 % (11.5-14.5) Immature Granulocyte % (Auto) 2.5 % Immature Granulocyte # (Auto) 0.52 K/uL (0.00-0.02) Large Platelets 1+ Target Cells 1+ [place] Bodies 1+ Prothrombin Time 11.8 SECONDS (9.0-12.0) Prothromb Time International Ratio 1.1 (0.9-1.1) Anion Gap 9.0 mmol/L (3-11) Est Creatinine Clear Calc Drug Dose 101.0 ml/min Estimated GFR () 125.8 Estimated GFR (Non- 108.5 BUN/Creatinine Ratio 59.6 (10-20) Calcium Level 8.9 mg/dl (8.5-10.1) Phosphorus Level 3.8 mg/dl (2.5-4.9) Magnesium Level 2.0 mg/dl (1.8-2.4) Total Bilirubin 1.4 mg/dl (0.2-1) Direct Bilirubin 0.8 mg/dl (0-0.2) Aspartate Amino Transf (AST/SGOT) 223 U/L (15-37) Alanine Aminotransferase (ALT/SGPT) 338 U/L (12-78) Alkaline Phosphatase 1883 U/L (45-117) Total Protein 7.2 gm/dl (6.4-8.2) Albumin 2.5 gm/dl (3.4-5.0) Prealbumin 15.3 mg/dl (20-40) Ionized Calcium 1.16 mmol/l (1.12-1.32) Labs reviewed by ED physician. Medications Administered Medications (Trade) Dose Ordered Sig/Pio Route Start Time Stop Time Status Last Admin Dose Admin Alteplase, Recombinant (Activase Cathflo) 2 mg ONE STAT IV 11/19/16 10:18 11/19/16 10:19 DC 11/19/16 10:27 2 MG ED Course 09: Past medical records reviewed. The patient was evaluated in room C9. A complete history and physical examination was performed. At this time I discussed the results and treatment plan with the patient. I answered all pertaining questions that he had. He expressed understanding and verbalized agreement. The patient will be discharged home after he is seen by the IV team. 1018: Alteplase, Recombinant 2 mg IV Medical Decision Medication Reconciliation: I attest that I have personally reviewed the patient' s current medication list. Blood Pressure Screening: Patient was found to have normal blood pressure on screening and does not require follow up. This is a 66-year-old male who presents emergency department complaining of blocked PICC line. The patient is also requesting as laboratory work be drawn. IV team was consulted who was able to en bloc the PICC line. I do believe that the patient is well enough to be discharged home for follow-up with his primary care physician. Patient was in agreement with the treatment plan. Impression Primary Impression: Occluded PICC line Scribe Attestation The scribe's documentation has been prepared under my direction and personally reviewed by me in its entirety. I confirm that the note above accurately reflects all work, treatment, procedures, and medical decision making performed by me. Departure Information Dispostion Home / Self-Care Referrals Chino Abdul MD (PCP) Forms HOME CARE DOCUMENTATION FORM, IMPORTANT VISIT INFORMATION, WORK / SCHOOL INSTRUCTIONS Patient Instructions My [facility] Additional Instructions You have been examined and treated today on an emergency basis only. This is not a substitute for, or an effort to provide, complete comprehensive medical care. It is impossible to recognize and treat all injuries or illnesses in a single emergency department visit. It is therefore important that you follow up closely with Dr Abdul. Call as soon as possible for an appointment. Thank you for your time and consideration. I look forward to speaking with you again soon. Please don't hesitate to call us if you have any questions. Problem Qualifiers Primary Impression: Occluded PICC line Encounter type: initial encounter Qualified Codes: T82.898A - Other specified complication of vascular prosthetic devices, implants and grafts, initial encounter
[2016-11-19] MEDS ORDERED: ALTEPLASE, RECOMBINANT 1 MG/ML 2 ML VIAL IV STA (10:18)
[2016-11-19] MEDS ORDERED: ASPI325T39 PO (11:13)
[2016-11-19 11:25] VITALS: BP 106/60
[2016-11-19 12:08] LABS: INR 1.1 (0.9-1.1); PROTHROMBIN TIME (PATIENT) 11.8 SECONDS (9.0-12.0)
[2016-11-19 12:25] VITALS: PULSE 70; O2SAT 97
[2016-11-19 12:26] LABS: BUN/CREATININE RATIO 59.6 (10-20); CALCIUM 8.9 mg/dl (8.5-10.1); CREATININE 0.56 mg/dl (0.60-1.40)
[2016-11-19 12:41] LABS: PHOSPHORUS 3.8 mg/dl (2.5-4.9); PREALBUMIN 15.3 mg/dl (20-40)
[2016-11-19 13:18] LABS: MEAN CELL VOLUME 88.8 fL (80-100); MEAN CORPUSCULAR HGB CONC 33.8 g/dl (32-36); MEAN PLATELET VOLUME 10.2 fL (7.4-10.4); PLATELET COUNT 1217 K/uL (130-400); RED BLOOD COUNT 3.83 M/uL (4.7-6.1); WHITE BLOOD COUNT 21.18 K/uL (4.8-10.8)
[2016-11-19 13:22] LABS: BASO % 0.6 %; BASO ABS # 0.12 K/uL (0-0.2); COMPLETE YES; EOS % 2.1 %; HOWELL-JOLLY BODIES 1+; IG% 2.5 %; LARGE PLATELETS 1+; LYMPH % 9.3 %; LYMPH ABS # 1.96 K/uL (1.2-3.4); MONO % 10.1 %; NEUT % 75.4 %; TARGET CELLS 1+
[2016-11-23 02:38] LABS: CARNITINE ESTER/FREE RATIO 0.28 (0.12-0.39)
[2016-12-26] MEDS ORDERED: ESCI1TAB6 PO (10:21)
== END 2016-11-19 12:30 | disposition home or self-care (01) ==
LOC: C.EDB 09:27 → C.EDC 12:30
DX: T82.898A Other specified complication of vascular prosthetic devices, implants and grafts, initial encounter (principal); X58.XXXA Exposure to other specified factors, initial encounter; I10 Essential (primary) hypertension; K86.1 Other chronic pancreatitis; Z90.49 Acquired absence of other specified parts of digestive tract; Z98.890 Other specified postprocedural states; Z87.891 Personal history of nicotine dependence; Z79.82 Long term (current) use of aspirin; Z79.899 Other long term (current) drug therapy; Z80.9 Family history of malignant neoplasm, unspecified; Z83.79 Family history of other diseases of the digestive system; Z82.49 Family history of ischemic heart disease and other diseases of the circulatory system

== ENCOUNTER → 2016-11-21 | Day surgery (SDC) | payer BC ==
[~2016-11-21] MED LIST changes: -ACTUDL GJT; +AMOX1TAB43 PO; +AMOX875T PO; +ASPI325T39 PO; +ESCI10TA17 PO; +ESCI1TAB6 PO; +INDSR/60 PO; +NRV5 PO; +PRIM50TA29 PO; -SODI0.9S IV; -VANC5CAP; -[UNRECOGNIZED DRUG - CODE] RE
== END | disposition home or self-care (01) ==
LOC: C.ACU 14:09
PROVIDERS: ATTEND Emergency Medicine
DX: Z43.9 Encounter for attention to unspecified artificial opening (principal)

== ENCOUNTER 2016-12-03 03:02 | Emergency (ER) | payer BC ==
[~2016-12-03] VITALS: Ht 172.7 cm; Wt 67.2 kg
[~2016-12-03 03:02] MED LIST changes: -AMOX1TAB43 PO; -AMOX875T PO; -ESCI10TA17 PO; -ESCI1TAB6 PO; -INDSR/60 PO; -NRV5 PO; -PRIM50TA29 PO
[2016-12-03 03:11] VITALS: Ht 172.7 cm; Wt 67.2 kg
[2016-12-03] MEDS ORDERED: SODIUM CHLORIDE 0.9% 1000ML 1,000 ML IV STA (03:19)
--- NOTE | 2016-12-03 03:40 | EMERGENCY ROOM VISIT NOTE ---
History Report prepared by Radha: Mason Guerrero Under the Supervision of: Dr. Rufus Martinez M.D. First contact with patient: 03:14 Chief Complaint: FEVER Stated Complaint: FEVER History of Present Illness The patient is a 66 year old male who presents to the Emergency Room with complaints of a worsening fever starting yesterday. The patient states that the fever has gotten up to around 103 degrees. He denies any cough, shortness of breath, diarrhea, abdominal pain, or urinary symptoms, though he states that he urinates frequently. The patient's states that the patient's PEG tube has been having a discharge as well. He states that he has been eating very well, and he has gained 10 pounds. 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 Source of History: patient, spouse/significant other Onset: yesterday Position: other (global) Quality: other (fever) Timing: worsening Associated Symptoms: No cough, No SOB, No abdominal pain, No diarrhea, No urinary symptoms Review of Systems See HPI for pertinent positives & negatives. A total of 10 systems reviewed and were otherwise negative. Past Medical & Surgical Medical Problems: (1) Acute pancreatitis (2) Hypertension (3) Melanoma (4) Pancreatitis (5) Pancreatitis due to biliary obstruction (6) Sacral wound Surgical Problems: (1) History of back surgery (2) S/P cholecystectomy (3) S/P colon resection Family History FH: cancer FH: gallbladder disease FH: heart disease Hypertension Social History Smoking Status: Former Smoker Alcohol Use: none Drug Use: none Marital Status: Housing Status: lives with significant other Occupation Status: retired Current/Historical Medications Scheduled Aspirin (Aspirin Ec), 325 MG PO DAILY Clonazepam (Klonopin), 0.5 MG PO DAILY@2130 Omeprazole (Prilosec), 40 MG PO BID Tpn Infusion (Tpn Infusion), 1 EA IV DAILY Scheduled PRN [hydromorphone hcl], 4 ML PO Q4 PRN for Pain Allergies Coded Allergies: No Known Allergies (Unverified , 12/03/16) Physical Exam Vital Signs Date Time Temp Pulse Resp B/P (MAP) Pulse Ox O2 Delivery O2 Flow Rate FiO2 12/03/16 07:16 81 22 141/84 97 Room Air 12/03/16 06:36 82 12/03/16 06:07 95 20 141/80 98 Room Air 12/03/16 05:37 79 22 12/03/16 05:07 90 20 12/03/16 04:39 37.8 88 24 135/76 96 Room Air 12/03/16 04:39 135/76 12/03/16 04:07 81 24 12/03/16 04:02 82 25 12/03/16 03:32 92 25 12/03/16 03:11 101 12/03/16 03:11 38.1 100 18 130/75 94 Room Air 12/03/16 03:09 130/75 Physical Exam GENERAL: Patient is chronically unwell appearing and in mild distress. HEENT: No acute trauma, normocephalic atraumatic, mucous membranes moist, no nasal congestion, no scleral icterus. NECK: No stridor, no adenopathy, no meningismus, trachea is midline. LUNGS: No dyspnea. Clear to auscultation and equal bilaterally. No wheeze, no rhonchi. HEART: Tachycardic rate and regular rhythm. No murmurs, rubs, gallops appreciated. ABDOMEN: PEG tube with some mild purulent drainage at drain. Ostomy with liquid brown stool. Soft, nontender, bowel sounds positive, no masses appreciated, no peritonitis. BACK: CVA drain in place. No midline tenderness, no CVA tenderness EXTREMITIES: PICC line in the right arm. Normal motion all extremities, no cyanosis, no edema. NEUROLOGIC: Alert and oriented, no acute motor or sensory deficits, no focal weakness, cranial nerves grossly intact. SKIN: Warm to the touch. No rash, no jaundice, no diaphoresis. Medical Decision & Procedures ER Provider Diagnostic Interpretation: Radiology results and stated below per my review and radiologist interpretation: CHEST ONE VIEW PORTABLE CLINICAL HISTORY: fever dyspnea COMPARISON STUDY: 07/24/2016 FINDINGS: Central catheter in superior vena cava. Lungs are considered clear. Mild elevation right hemidiaphragm. IMPRESSION: Central catheter in superior vena cava. Lungs are generally clear. Electronically signed by: Jett Lofton M.D. 12/03/2016 6:[address] ABDOMEN & PELVIS: Comparison: CT abdomen and pelvis 06/30/16 MRI abdomen 08/08/16. Small left pleural effusion, decreased from prior. Resolved right pleural effusion. Status post cholecystectomy. Liver is unremarkable. Pancreatic duct is dilated at rthe pancreatic head measuring 8 mm. Previously seen pancreatic duct stent has been removed. Pancreatic tail appears atrophic. There is a [id number] collection along the posterior aspect of the stomach extending medially into the lesser sac measuring approximately 3.3 cm AP oblique and extending approximately 11 cm transverse. A percutaneous drainage catheter has been placed in the left flank with pigtail coiled within this collection. A stent has been placed in the celiac axis. The kidneys and adrenal glands are unremarkable. A percutaneous gastrostomy tube is in place. There has been partial right hemicolectomy. There is a colostomy in the anterior midline. There is no evidence of bowel obstruction. Appendix is not visualized. There is mild mesenteric edema. Urinary bladder and prostate are unremarkable. There are no acute osseous findings. Radiologist: Kath Christian M.D. Laboratory Results 12/03/16 03:15 Red Blood Count 3.16, Mean Corpuscular Volume 88.3, Mean Corpuscular Hemoglobin 30.1, Mean Corpuscular Hemoglobin Concent 34.1, Mean Platelet Volume 9.3 12/03/16 03:15 Test 12/03/16 03:15 12/03/16 03:26 12/03/16 03:41 White Blood Count 21.32 K/uL (4.8-10.8) Red Blood Count 3.16 M/uL (4.7-6.1) Hemoglobin 9.5 g/dL (14.0-18.0) Hematocrit 27.9 % (42-52) Mean Corpuscular Volume 88.3 fL (80-100) Mean Corpuscular Hemoglobin 30.1 pg (25-34) Mean Corpuscular Hemoglobin Concent 34.1 g/dl (32-36) Platelet Count 1236 K/uL (130-400) Mean Platelet Volume 9.3 fL (7.4-10.4) RDW Standard Deviation 56.0 fL (36.4-46.3) RDW Coefficient of Variation 17.3 % (11.5-14.5) Nucleated RBC Absolute Count (auto) 0.05 K/uL (0-0) Neutrophils % (Manual) 75.6 % Lymphocytes % (Manual) 10.4 % Monocytes % (Manual) 9.6 % Eosinophils % (Manual) 2.6 % Basophils % (Manual) 0.9 % (0-2) Myelocytes % 0.9 % Nucleated Red Blood Cells % 0.2 % Neutrophils # (Manual) 16.12 K/uL (1.4-6.5) Total Absolute Neutrophils 16.12 K/uL (1.4-6.5) Lymphocytes # (Manual) 2.22 K/uL (1.2-3.4) Total Absolute Lymphocytes 2.22 K/uL (1.2-3.4) Monocytes # (Manual) 2.05 K/uL (0.11-0.59) Eosinophils # (Manual) 0.55 K/uL (0-0.5) Basophils # (Manual) 0.19 K/uL (0-0.2) Myelocytes # 0.19 K/uL (0-0) Target Cells 1+ Anion Gap 8.0 mmol/L (3-11) Est Creatinine Clear Calc Drug Dose 179.5 ml/min Estimated GFR () 146.0 Estimated GFR (Non- 126.0 BUN/Creatinine Ratio 68.7 (10-20) Calcium Level 8.1 mg/dl (8.5-10.1) Magnesium Level 1.9 mg/dl (1.8-2.4) Total Bilirubin 0.5 mg/dl (0.2-1) Direct Bilirubin 0.4 mg/dl (0-0.2) Aspartate Amino Transf (AST/SGOT) 177 U/L (15-37) Alanine Aminotransferase (ALT/SGPT) 241 U/L (12-78) Alkaline Phosphatase 1324 U/L (45-117) Total Creatine Kinase 17 U/L (39-308) Creatine Kinase MB < 0.5 ng/ml (0.5-3.6) Creatine Kinase MB Ratio (0-3.0) Troponin I < 0.015 ng/ml (0-0.045) Total Protein 6.7 gm/dl (6.4-8.2) Albumin 2.1 gm/dl (3.4-5.0) Bedside Lactic Acid Venous 0.75 mmol/L (0.90-1.70) Urine Color DK YELLOW Urine Appearance CLEAR (CLEAR) Urine pH 5.5 (4.5-7.5) Urine Specific [place] 1.026 (1.000-1.030) Urine Protein NEG (NEG) Urine Glucose (UA) NEG (NEG) Urine Ketones NEG (NEG) Urine Occult Blood NEG (NEG) Urine Nitrite NEG (NEG) Urine Bilirubin NEG (NEG) Urine Urobilinogen NEG (NEG) Urine Leukocyte Esterase NEG (NEG) Urine WBC (Auto) 1-5 /hpf (0-5) Urine RBC (Auto) 0-4 /hpf (0-4) Urine Hyaline Casts (Auto) 1-5 /lpf (0-5) Urine Epithelial Cells (Auto) 5-10 /lpf (0-5) Urine Bacteria (Auto) NEG (NEG) Laboratory results as reviewed by me. Medications Administered Medications (Trade) Dose Ordered Sig/Pio Route Start Time Stop Time Status Last Admin Dose Admin Sodium Chloride 1,000 ml @ 75 mls/hr [id number] STAT IV 12/03/16 03:19 12/03/16 16:38 12/03/16 03:19 75 MLS/HR Cefepime HCl 1000 mg/Dextrose 111.3 ml @ 200 mls/hr NOW STAT IV 12/03/16 05:00 12/03/16 05:33 DC 12/03/16 05:00 200 MLS/HR Vancomycin HCl 1700 mg/Sodium Chloride 534 ml @ 200 mls/hr ONE STAT IV 12/03/16 05:00 12/03/16 07:40 12/03/16 05:00 200 MLS/HR ECG Indication: other (fever) Rate (beats per minute): 85 Rhythm: normal sinus Findings: no acute ischemic change, no ectopy ED Course 0314: The patient was evaluated in room A11. A complete history and physical exam was performed. 0319: Sodium Chloride 1000 ml @ 75 mls/hr 0414: I reevaluated the patient, and he feels warm and is agreeable to CT scan of the abdomen. 0500: Vancomycin HCl 1700mg/Sodium Chloride 534ml @ 200mls/hr IV, Cefepime HCl 1000mg/ Dextrose 111.3ml @ 200mls/hr IV 0535: I discussed the patient's case with Dr. Moore, [facility]. He is going to evaluate the patient for further treatment 0633: I discussed ambulance vs private transfer to [facility], and the patient delcines ambulance. States that his will drive him there. Medical Decision Differential: Viral, Pharyngitis, Cellulitis, Pneumonia, Influenza, Meningitis, Sepsis, Bacteremia, UTI/Pyelonephritis, Intraabdominal infection, Endocrine, Toxicologic, amongst other pathologies entertained. 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 Developed hematoma intraabdominal for which IR drain placed in left flank. notes this drain has recently been draining brown fluid and then has somewhat slowed in recent days. Notes increasing fever starting yesterday using Tylenol though continued fevers. Arrives febrile though not overtly septic appearing, in fact looking much improved to his previous visit last month when I had seen him. That said, febrile with no spleen and chronically unwell thus septic work-up initiated. Blood cultures obtained. WBC elevated though this is similar to WBC from a week or so ago. PLTs chronically elevated. Lactic acid OK, Temp coming down, Vitals good and stable. Patient with no complaints. CXR negative as is UA. He was given empiric Cefepime/Vanc given his asplenic with fever. CT done of abdomen revealing amongst other things as 3x11cm intraabdominal abscess behind the stomach. Suspect that IR drain no longer functioning correctly and he may have fistula at this site that has developed. Discussed with Dr Moore at [facility] who feels patient should be sent to their facility for further evaluation/ treatment of this. I think this is reasonable given no IR here and need for continuity of care. Patient made aware of findings and wish to go to [facility] which he is in agreement with. He is not interested in ambulance transfer. He feels comfortable going by private vehicle as his will be driving there anyways. He understands that if he has medical emergency he will not have immediate treatment he would get if already on ambulance. Aware to go to nearest ER if any issues. He is well aware of location and admission at [facility], as is his . He feels completely confident with going by private vehicle. Monitored for many hours in ED without issue prior to transfer. Consults Time Called: 0530 Consulting Physician: Dr. Moore, [facility] Returned Call: [phone] I discussed the patient's case with Dr. Moore, [facility]. He is going to evaluate the patient for further treatment Impression Primary Impression: Intra-abdominal abscess Additional Impressions: Fever Asplenia Scribe Attestation The scribe's documentation has been prepared under my direction and personally reviewed by me in its entirety. I confirm that the note above accurately reflects all work, treatment, procedures, and medical decision making performed by me. Departure Information Dispostion Transfer Acute Care Facility Referrals Chino Abdul MD (PCP) Patient Instructions My [facility] Additional Instructions Drive directly to [facility] where your surgeon is. Dr Moore is aware of your case and has accepted you for transfer to their facility. You should not eat nor drink anything until you are evaluated at their facility. Call 911 or go to nearest emergency room if you have any worsening of your symptoms. Problem Qualifiers Additional Impressions: Fever Fever type: unspecified Qualified Codes: R50.9 - Fever, unspecified
[2016-12-03 03:44] LABS: HEMATOCRIT 27.9 % (42-52); MEAN CELL VOLUME 88.3 fL (80-100); MEAN CORPUSCULAR HEMOGLOBIN 30.1 pg (25-34); MEAN CORPUSCULAR HGB CONC 34.1 g/dl (32-36); MEAN PLATELET VOLUME 9.3 fL (7.4-10.4); PLATELET COUNT 1236 K/uL (130-400); RED BLOOD COUNT 3.16 M/uL (4.7-6.1); WHITE BLOOD COUNT 21.32 K/uL (4.8-10.8)
[2016-12-03 03:49] LABS: ALT/SGPT 241 U/L (12-78); AST/SGOT 177 U/L (15-37); BLOOD UREA NITROGEN 27 mg/dl (7-18); BUN/CREATININE RATIO 68.7 (10-20); CALCIUM 8.1 mg/dl (8.5-10.1); CARBON DIOXIDE 24 mmol/L (21-32); CHLORIDE 106 mmol/L (98-107); CREATININE 0.39 mg/dl (0.60-1.40); GLUCOSE 138 mg/dl (70-99); MAGNESIUM 1.9 mg/dl (1.8-2.4); POTASSIUM 4.3 mmol/L (3.5-5.1); SODIUM 138 mmol/L (136-145)
[2016-12-03 03:54] LABS: URINE APPEARANCE CLEAR (CLEAR); URINE BILIRUBIN NEG (NEG); URINE COLOR DK YELLOW; URINE NITRITE NEG (NEG); URINE PH 5.5 (4.5-7.5); URINE SPECIFIC GRAVITY 1.026 (1.000-1.030); UROBILINOGEN NEG (NEG); ZZUR CULT IF INDIC CLEAN CATCH NO
[2016-12-03 03:56] LABS: BASO ABS # 0.19 K/uL (0-0.2); BASOPHIL % 0.9 % (0-2); COMPLETE YES; EOSINOPHIL % 2.6 %; LYMPH ABS # 2.22 K/uL (1.2-3.4); LYMPHOCYTE % 10.4 %; MYELOCYTE % 0.9 %; NEUTROPHILS % 75.6 %; TARGET CELLS 1+
[2016-12-03 03:57] LABS: MANUAL MICROSCOPIC REQUIRED? NO; REVIEW REQ? NO
[2016-12-03 04:04] LABS: ALKALINE PHOSPHATASE 1324 U/L (45-117)
[2016-12-03] MEDS ORDERED: OPTIRAY 320 IV PRN (04:30)
[2016-12-03] MEDS ORDERED: VANCOMYCIN INJ 1,700 MG in SODIUM CHLORIDE 0.9% 500ML 500 ML IV STA (05:00)
[2016-12-03] MEDS ORDERED: CEFEPIME IV 1,000 MG in DEXTROSE 5% 100ML 100 ML IV STA (05:00)
--- NOTE | 2016-12-03 06:27 | DIAGNOSTIC IMAGING REPORT ---
CHEST ONE VIEW PORTABLE CLINICAL HISTORY: fever dyspnea COMPARISON STUDY: 07/24/2016 FINDINGS: Central catheter in superior vena cava. Lungs are considered clear. Mild elevation right hemidiaphragm. IMPRESSION: Central catheter in superior vena cava. Lungs are generally clear. Electronically signed by: Jett Lofton M.D. 12/03/2016 6:26 AM Dictated Date/Time: 12/03/2016 6:26 AM
--- NOTE | 2016-12-03 07:43 | DIAGNOSTIC IMAGING REPORT ---
CT SCAN OF THE ABDOMEN AND PELVIS WITH IV CONTRAST CLINICAL HISTORY: Fever of unknown origin. COMPARISON STUDY: Prior abdominal CT scans, most recently dated 07/01/2016. TECHNIQUE: Following the IV administration of 115 cc of Optiray 320, CT scan of the abdomen and pelvis was performed from the lung bases the proximal femora. Images are reviewed in the axial, sagittal, and coronal planes. IV contrast was administered without complication. CT DOSE: 294.89 mGy.cm FINDINGS: Lower chest: The heart is normal in size and without pericardial effusion. There are coronary artery calcifications. Emphysematous change is noted at the lung bases. There is dependent atelectasis. There is a small left pleural effusion with associated atelectasis. Liver: The contrast-enhanced liver is normal in size, contour, and attenuation. There is no intrahepatic or ductal dilatation. The hepatic veins and portal veins are patent. A stent extends from the celiac trunk into the hepatic artery. Gallbladder: Surgically absent noting clips in the gallbladder fossa. Spleen: Surgically absent. Pancreas: A pancreatic stent has been removed from previous. The pancreatic head is grossly unremarkable. The distal pancreatic body and tail appear surgically absent. Adrenal glands: Nodular thickening of the adrenal glands is similar to previous. Kidneys: The contrast-enhanced kidneys demonstrate mild cortical atrophy and are without hydronephrosis. The kidneys enhance symmetrically. Abdominal vasculature: The abdominal aorta is normal in course and caliber noting moderate to advanced atherosclerotic calcification. Bowel: A gastrostomy tube is in place. There are postoperative changes from sigmoid colon resection with colocolonic anastomosis. A small bowel suture line is seen in the left lower quadrant. No bowel obstruction is seen. A colostomy is suggested in the mid abdomen. There is moderate fecal retention throughout the remainder of the colon. The appendix is not identified and reported surgically absent. Peritoneum: There is a percutaneous drain identified in the left upper quadrant from a left lower quadrant approach. This is coiled within a collection at the presumed splenectomy site. The residual collection measures approximately 4 x 3 x 6 cm, and there may be a fistulous connection between this collection and the colon or leading to the presumed ostomy in the umbilical region, best seen on axial image #145. This collection is located along the gastric fundus. It is unclear if there is communication with the gastric lumen. Inflammatory changes seen in the left upper quadrant. Lymphadenopathy: None. Pelvic viscera: The prostate gland is enlarged and heterogeneous, measuring 5.4 cm transverse diameter. The bladder wall appears mildly thickened and trabeculated suggesting chronic outlet obstruction. There is a small fat-containing left inguinal hernia. Skeletal structures: The skeletal structures are osteopenic. There is mild to moderate lumbosacral spondylosis. No lytic or blastic bony lesions are seen. IMPRESSION: 1. Interval postoperative changes from distal pancreatectomy and splenectomy, presumed colostomy, celiac and hepatic artery stenting, and gastrostomy tube placement. 2. A surgical drain is located within a complex fluid collection at the splenectomy site. The appearance is concerning for abscess. 3. There is a suspected fistulous communication either between the left upper quadrant fluid collection and the colon or the presumed ostomy site itself. 4. Small left pleural effusion. 5. Additional findings as above. Electronically signed by: Brandon Hurd M.D. 12/03/2016 7:42 AM Dictated Date/Time: 12/03/2016 7:22 AM
[2016-12-03 09:04] VITALS: BP 120/75; PULSE 72; TEMP 36.6; O2SAT 95
--- NOTE | 2016-12-06 16:15 | Pharmacy Progress Note ---
ED Pharmacist Culture FollowUp Date of Service: Dec 06, 2016. Per RN note on 12/04, called Dr. Gar (attending Dr at [facility]) at , spoke frankie Garza. Kayla requested I fax results and sensitivities of positive blood cultures. Provided fax number of . [facility] to take care of treatment plan based on results. I faxed culture and sensitivities of blood cultures to the above fax number, and received the fax confirmation. No further intervention required by ED staff at this time.
[2016-12-26] MEDS ORDERED: ESCI1TAB6 PO (10:21)
== END 2016-12-03 09:20 | disposition short-term general hospital (02) ==
LOC: EDBD 03:02 → C.EDA 03:02
DX: K65.1 Peritoneal abscess (principal); R50.9 Fever, unspecified; Z90.81 Acquired absence of spleen; I10 Essential (primary) hypertension; Z87.891 Personal history of nicotine dependence; Z79.82 Long term (current) use of aspirin; Z82.49 Family history of ischemic heart disease and other diseases of the circulatory system; Z93.1 Gastrostomy status; Z93.3 Colostomy status

== ENCOUNTER → 2016-12-12 | Outpatient (CLI) | payer BC ==
[~2016-12-12] MED LIST changes: +AMOX1TAB43 PO; +ESCI10TA17 PO; +ESCI1TAB6 PO; +INDSR/60 PO; +NRV5 PO; +PRIM50TA29 PO
[2016-12-12 15:49] LABS: BASO % 0.2 %; BASO ABS # 0.03 K/uL (0-0.2); COMPLETE YES; EOS % 2.3 %; HEMATOCRIT 29.6 % (42-52); IG% 0.8 %; LYMPH % 7.9 %; LYMPH ABS # 1.34 K/uL (1.2-3.4); MEAN CELL VOLUME 88.9 fL (80-100); MEAN CORPUSCULAR HEMOGLOBIN 29.1 pg (25-34); MEAN CORPUSCULAR HGB CONC 32.8 g/dl (32-36); MEAN PLATELET VOLUME 9.7 fL (7.4-10.4); MONO % 9.5 %; NEUT % 79.3 %; PLATELET COUNT 972 K/uL (130-400); RED BLOOD COUNT 3.33 M/uL (4.7-6.1); WHITE BLOOD COUNT 16.88 K/uL (4.8-10.8)
[2016-12-12 16:05] LABS: ALT/SGPT 53 U/L (12-78); BLOOD UREA NITROGEN 19 mg/dl (7-18); BUN/CREATININE RATIO 39.8 (10-20); CALCIUM 8.4 mg/dl (8.5-10.1); CARBON DIOXIDE 29 mmol/L (21-32); CHLORIDE 105 mmol/L (98-107); CREATININE 0.47 mg/dl (0.60-1.40); GLUCOSE 97 mg/dl (70-99); POTASSIUM 3.7 mmol/L (3.5-5.1); SODIUM 139 mmol/L (136-145)
[2016-12-12 16:08] LABS: ALB/GLOB RATIO 0.5 (0.9-2); ALKALINE PHOSPHATASE 698 U/L (45-117); AST/SGOT 20 U/L (15-37)
== END | disposition home or self-care (01) ==
LOC: C.LABSPEC 15:21
PROVIDERS: ATTEND Internal Medicine
DX: Z01.89 Encounter for other specified special examinations (principal)

== ENCOUNTER → 2016-12-17 | Outpatient (CLI) | payer BC ==
[2016-12-17 14:42] LABS: BASO % 0.5 %; BASO ABS # 0.08 K/uL (0-0.2); COMPLETE YES; EOS % 4.6 %; HEMATOCRIT 31.4 % (42-52); IG% 1.1 %; LYMPH % 7.8 %; LYMPH ABS # 1.39 K/uL (1.2-3.4); MEAN CELL VOLUME 89.7 fL (80-100); MEAN CORPUSCULAR HEMOGLOBIN 29.1 pg (25-34); MEAN CORPUSCULAR HGB CONC 32.5 g/dl (32-36); MONO % 10.2 %; NEUT % 75.8 %; PLATELET COUNT 859 K/uL (130-400); WHITE BLOOD COUNT 17.71 K/uL (4.8-10.8)
[2016-12-17 14:51] LABS: INR 1.1 (0.9-1.1); PROTHROMBIN TIME (PATIENT) 11.4 SECONDS (9.0-12.0)
[2016-12-17 14:55] LABS: ALKALINE PHOSPHATASE 855 U/L (45-117); ALT/SGPT 54 U/L (12-78); AST/SGOT 44 U/L (15-37); BLOOD UREA NITROGEN 15 mg/dl (7-18); BUN/CREATININE RATIO 34.8 (10-20); CALCIUM 8.2 mg/dl (8.5-10.1); CARBON DIOXIDE 23 mmol/L (21-32); CHLORIDE 106 mmol/L (98-107); CREATININE 0.44 mg/dl (0.60-1.40); GLUCOSE 159 mg/dl (70-99); PHOSPHORUS 3.1 mg/dl (2.5-4.9); POTASSIUM 4.4 mmol/L (3.5-5.1); SODIUM 138 mmol/L (136-145); TRIGLYCERIDES 69 mg/dl (0-150)
== END | disposition home or self-care (01) ==
LOC: C.LABSPEC 13:37
PROVIDERS: ATTEND Internal Medicine
DX: K85.90 Acute pancreatitis without necrosis or infection, unspecified (principal)

== ENCOUNTER → 2016-12-24 | Outpatient (CLI) | payer BC ==
[2016-12-24 13:07] LABS: BASO % 0.7 %; BASO ABS # 0.13 K/uL (0-0.2); COMPLETE YES; EOS % 4.9 %; HEMATOCRIT 32.1 % (42-52); IG% 1.8 %; LYMPH % 12.2 %; LYMPH ABS # 2.22 K/uL (1.2-3.4); MEAN CELL VOLUME 89.9 fL (80-100); MEAN CORPUSCULAR HEMOGLOBIN 29.7 pg (25-34); MEAN PLATELET VOLUME 9.6 fL (7.4-10.4); MONO % 7.6 %; NEUT % 72.8 %; PLATELET COUNT 925 K/uL (130-400); RED BLOOD COUNT 3.57 M/uL (4.7-6.1); WHITE BLOOD COUNT 18.13 K/uL (4.8-10.8)
[2016-12-24 13:23] LABS: ALT/SGPT 129 U/L (12-78); AST/SGOT 67 U/L (15-37); BLOOD UREA NITROGEN 28 mg/dl (7-18); BUN/CREATININE RATIO 59.1 (10-20); CALCIUM 9.1 mg/dl (8.5-10.1); CARBON DIOXIDE 25 mmol/L (21-32); CHLORIDE 105 mmol/L (98-107); CREATININE 0.47 mg/dl (0.60-1.40); GLUCOSE 116 mg/dl (70-99); MAGNESIUM 2.1 mg/dl (1.8-2.4); POTASSIUM 4.2 mmol/L (3.5-5.1); SODIUM 138 mmol/L (136-145)
[2016-12-24 13:30] LABS: ALKALINE PHOSPHATASE 980 U/L (45-117); PHOSPHORUS 3.4 mg/dl (2.5-4.9); PREALBUMIN 16.4 mg/dl (20-40); PROTHROMBIN TIME (PATIENT) 11.2 SECONDS (9.0-12.0); TRIGLYCERIDES 48 mg/dl (0-150)
== END | disposition home or self-care (01) ==
LOC: C.LABSPEC 12:37
PROVIDERS: ATTEND Internal Medicine
DX: K85.90 Acute pancreatitis without necrosis or infection, unspecified (principal)

== ENCOUNTER → 2016-12-31 | Outpatient (CLI) | payer BC ==
[2016-12-31 13:04] LABS: PROTHROMBIN TIME (PATIENT) 10.9 SECONDS (9.0-12.0)
[2016-12-31 13:07] LABS: BLOOD UREA NITROGEN 26 mg/dl (7-18); BUN/CREATININE RATIO 42.5 (10-20); CALCIUM 9.6 mg/dl (8.5-10.1); CARBON DIOXIDE 29 mmol/L (21-32); CHLORIDE 103 mmol/L (98-107); GLUCOSE 101 mg/dl (70-99); MAGNESIUM 1.9 mg/dl (1.8-2.4); POTASSIUM 3.8 mmol/L (3.5-5.1); SODIUM 137 mmol/L (136-145)
[2016-12-31 13:19] LABS: BASO % 0.4 %; BASO ABS # 0.09 K/uL (0-0.2); COMPLETE YES; EOS % 2.4 %; HEMATOCRIT 34.5 % (42-52); IG% 1.2 %; LYMPH % 8.4 %; LYMPH ABS # 1.76 K/uL (1.2-3.4); MEAN CELL VOLUME 89.1 fL (80-100); MEAN CORPUSCULAR HEMOGLOBIN 29.5 pg (25-34); MEAN PLATELET VOLUME 9.6 fL (7.4-10.4); MONO % 6.7 %; NEUT % 80.9 %; PLATELET COUNT 1081 K/uL (130-400); RED BLOOD COUNT 3.87 M/uL (4.7-6.1); WHITE BLOOD COUNT 21.05 K/uL (4.8-10.8)
[2016-12-31 13:23] LABS: ALKALINE PHOSPHATASE 1199 U/L (45-117); ALT/SGPT 321 U/L (12-78); AST/SGOT 214 U/L (15-37); PHOSPHORUS 3.8 mg/dl (2.5-4.9); PREALBUMIN 19.1 mg/dl (20-40); TRIGLYCERIDES 67 mg/dl (0-150)
== END | disposition home or self-care (01) ==
LOC: C.LABSPEC 12:19
PROVIDERS: ATTEND Internal Medicine
DX: K85.90 Acute pancreatitis without necrosis or infection, unspecified (principal)

== ENCOUNTER → 2017-01-07 | Outpatient (CLI) | payer BC ==
[2017-01-07 12:42] LABS: PROTHROMBIN TIME (PATIENT) 10.7 SECONDS (9.0-12.0)
[2017-01-07 12:46] LABS: HEMATOCRIT 37.3 % (42-52); MEAN CELL VOLUME 88.6 fL (80-100); MEAN CORPUSCULAR HEMOGLOBIN 28.3 pg (25-34); MEAN CORPUSCULAR HGB CONC 31.9 g/dl (32-36); MEAN PLATELET VOLUME 9.2 fL (7.4-10.4); PLATELET COUNT 1298 K/uL (130-400); RED BLOOD COUNT 4.21 M/uL (4.7-6.1); WHITE BLOOD COUNT 18.93 K/uL (4.8-10.8)
[2017-01-07 12:55] LABS: ALT/SGPT 181 U/L (12-78); BLOOD UREA NITROGEN 29 mg/dl (7-18); BUN/CREATININE RATIO 49.2 (10-20); CALCIUM 9.6 mg/dl (8.5-10.1); CARBON DIOXIDE 28 mmol/L (21-32); CHLORIDE 104 mmol/L (98-107); CREATININE 0.59 mg/dl (0.60-1.40); GLUCOSE 92 mg/dl (70-99); MAGNESIUM 2.3 mg/dl (1.8-2.4); POTASSIUM 4.6 mmol/L (3.5-5.1); SODIUM 138 mmol/L (136-145)
[2017-01-07 13:03] LABS: ANISOCYTOSIS PRESENT; BASO % 0.6 %; BASO ABS # 0.12 K/uL (0-0.2); COMPLETE YES; ECHINOCYTES 1+; EOS % 6.1 %; HOWELL-JOLLY BODIES 1+; IG% 4.5 %; LYMPH ABS # 2.47 K/uL (1.2-3.4); MONO % 10.3 %; NEUT % 65.5 %; SCHISTOCYTES 1+; TARGET CELLS 1+
[2017-01-07 13:13] LABS: ALKALINE PHOSPHATASE 984 U/L (45-117); AST/SGOT 104 U/L (15-37); PHOSPHORUS 3.5 mg/dl (2.5-4.9); PREALBUMIN 22.3 mg/dl (20-40); TRIGLYCERIDES 60 mg/dl (0-150)
== END | disposition home or self-care (01) ==
LOC: C.LABSPEC 12:08
PROVIDERS: ATTEND Internal Medicine
DX: K85.90 Acute pancreatitis without necrosis or infection, unspecified (principal)

== ENCOUNTER → 2017-01-23 | Outpatient (CLI) | payer BC ==
[2017-01-23 13:55] LABS: ALT/SGPT 123 U/L (12-78); AST/SGOT 64 U/L (15-37); BLOOD UREA NITROGEN 16 mg/dl (7-18); BUN/CREATININE RATIO 21.4 (10-20); CALCIUM 9.2 mg/dl (8.5-10.1); CARBON DIOXIDE 27 mmol/L (21-32); CHLORIDE 108 mmol/L (98-107); CREATININE 0.76 mg/dl (0.60-1.40); GLUCOSE 174 mg/dl (70-99); POTASSIUM 3.6 mmol/L (3.5-5.1); SODIUM 141 mmol/L (136-145)
[2017-01-23 14:00] LABS: ALB/GLOB RATIO 0.8 (0.9-2); ALKALINE PHOSPHATASE 656 U/L (45-117); PREALBUMIN 23.4 mg/dl (20-40)
[2017-01-23 14:54] LABS: BASO % 0.6 %; BASO ABS # 0.09 K/uL (0-0.2); COMPLETE YES; EOS % 5.2 %; HEMATOCRIT 38.4 % (42-52); IG% 0.7 %; LYMPH % 16.1 %; MEAN CELL VOLUME 89.1 fL (80-100); MEAN CORPUSCULAR HEMOGLOBIN 29.5 pg (25-34); MEAN CORPUSCULAR HGB CONC 33.1 g/dl (32-36); MEAN PLATELET VOLUME 9.8 fL (7.4-10.4); MONO % 7.4 %; PLATELET COUNT 1168 K/uL (130-400); RED BLOOD COUNT 4.31 M/uL (4.7-6.1); WHITE BLOOD COUNT 14.89 K/uL (4.8-10.8)
== END | disposition home or self-care (01) ==
LOC: C.LABSPEC 12:47
PROVIDERS: ATTEND Internal Medicine
DX: K86.89 Other specified diseases of pancreas (principal)

== ENCOUNTER 2017-03-12 16:51 | Inpatient (IN) | payer BC, OTHER ==
[~2017-03-12] VITALS: Ht 172.7 cm; Wt 69.3 kg
[~2017-03-12 16:51] MED LIST changes: -AMOX1TAB43 PO; -ESCI10TA17 PO; -INDSR/60 PO; -NRV5 PO; -PRIM50TA29 PO
[2017-03-12] MEDS ORDERED: SODIUM CHLORIDE 0.9% 1000ML 1,000 ML IV ONE (18:15)
[2017-03-12] MEDS ORDERED: INDSR/60 PO (18:47)
--- NOTE | 2017-03-12 18:48 | DIAGNOSTIC IMAGING REPORT ---
CHEST ONE VIEW PORTABLE CLINICAL HISTORY: fever COMPARISON STUDY: 12/03/2016 FINDINGS: The cardiac and mediastinal contours are normal. There is no evidence of focal pulmonary consolidation. There is no evidence of failure. No pleural effusions are visualized.[ Postsurgical changes are present within the upper abdomen. IMPRESSION: No active disease in the chest. Electronically signed by: Abdoulaye Alarcon M.D. 03/12/2017 6:47 PM Dictated Date/Time: 03/12/2017 6:46 PM
[2017-03-12] MEDS ORDERED: ESCI10TA17 PO (18:49)
[2017-03-12] MEDS ORDERED: PRIM50TA29 PO (18:50)
[2017-03-12] MEDS ORDERED: SODIUM CHLORIDE 0.9% 1000ML 1,000 ML IV STA (18:51)
[2017-03-12] MEDS ORDERED: SODIUM CHLORIDE 0.9% 150ML 150 ML IV STA (18:51)
[2017-03-12] MEDS ORDERED: VANCOMYCIN INJ 1,700 MG in SODIUM CHLORIDE 0.9% 250ML 250 ML IV STA (18:52)
[2017-03-12] MEDS ORDERED: PIPERACILLIN/TAZOBACTAM 4.5 GM/100ML D5W IV STA (18:52)
[2017-03-12] MEDS ORDERED: VANCOMYCIN INJ 1,700 MG in SODIUM CHLORIDE 0.9% 500ML 500 ML IV STA (18:56)
[2017-03-12] MEDS ORDERED: VANCOMYCIN INJ 1,750 MG in SODIUM CHLORIDE 0.9% 500ML 500 ML IV STA (18:58)
--- NOTE | 2017-03-12 19:11 | EMERGENCY ROOM VISIT NOTE ---
History First contact with patient: 18:11 Chief Complaint: FEVER Stated Complaint: 103.9 TEMP History of Present Illness The patient is a 66 year old male with a significant history of chronic pancreatitis, splenectomy, partial pancreatectomy who presents to the Emergency Room with complaints of fever x 2 days. The patient states that for approx 2 weeks he has been suffering from neck stiff ness as well as shoulder and hip stiffness/ pain. Approx 2 days prior the patient started to suffer from a severe 10/10 constant, non radiation sharp frontal headache that is not relieved with any medications. He has tried both Tylenol and Motrin. He also notes that he has been measuring a fever for these two days and has been measured as high as 103.9F. The patient has a history of suffering from sepsis in the past year after having been diagnosed with chronic pancreatitis. The first sepsis was thought to be secondary to a stent that was placed in the pancreas and the second was secondary to a PICC which was removed more than a month prior. He states that he does not recall any contact with ticks however [facility] No sick contacts. He denies any chest pain, SOB, abdominal pain, rash. Review of Systems A 10 point review of systems was completed and it was negative aside from above Past Medical/Surgical History Medical Problems: (1) Acute pancreatitis (2) Hypertension (3) Melanoma (4) Pancreatitis (5) Pancreatitis due to biliary obstruction (6) Sacral wound Surgical Problems: (1) History of back surgery (2) S/P cholecystectomy (3) S/P colon resection Family History FH: cancer FH: gallbladder disease FH: heart disease Hypertension Social History Smoking Status: Never Smoker Alcohol Use: none Drug Use: none Marital Status: Housing Status: lives with significant other Occupation Status: retired Current/Historical Medications Scheduled Aspirin (Aspirin Ec), 325 MG PO DAILY Clonazepam (Klonopin), 0.5 MG PO DAILY@2130 Escitalopram (Lexapro), 10 MG PO DAILY Omeprazole (Prilosec), 20 MG PO BID Primidone (Mysoline), 75 MG PO QPM Propranolol Hcl (Propranolol ER), 60 MG PO DAILY Physical Exam Vital Signs Date Time Temp Pulse Resp B/P (MAP) Pulse Ox O2 Delivery O2 Flow Rate FiO2 03/12/17 21:27 37.8 97 22 141/79 96 Nasal Cannula 2.0 03/12/17 20:34 105 9/26/17 20:15 106 18 127/70 97 Nasal Cannula 2.0 03/12/17 19:40 106 18 166/88 91 Room Air 03/12/17 17:08 38.1 55 22 94 Room Air Physical Exam General: ambulatory, not in acute distress, visible tremor in bilat UE Skin: no rashes noted, no suspicious lesions, no areas of inflammations/ lacerations/ erythema noted CVS: S1/ S2 noted, RRR, no rubs/ murmurs noted, no cyanosis RVS: Clear throughout bilaterally, not in acute respiratory distress, no wheezing/ rales/ crackles noted ENT: no erythema/ injection/ ulcerations noted in the pharynx, no lymphadenopathy, dry mucus membranes Neck: inspection WNL, full ROM of neck, c/o of stiffness with flexion of neck however able to flex chin to chest ABD: BSx4, no pain/ tenderness on palpation, no organomegaly, negative murphys, psoas, Rovsing, CVA tenderness, ostomy noted MSK: inspection of all limbs WNL, motor and sensation intact in all limbs, no swelling/ pain on palpation of joints, negative kurnig sign NVS: CN ii-xii WNL, PERRL, EOMI, sensation intact in all extremities, DTR +2 Lymph: No lymphadenopathy palpable Medical Decision & Procedures ER Provider Diagnostic Interpretation: [~ rep ct add3]] CHEST ONE VIEW PORTABLE CLINICAL HISTORY: fever COMPARISON STUDY: 12/03/2016 FINDINGS: The cardiac and mediastinal contours are normal. There is no evidence of focal pulmonary consolidation. There is no evidence of failure. No pleural effusions are visualized.[ Postsurgical changes are present within the upper abdomen. IMPRESSION: No active disease in the chest. HEAD WITHOUT CONTRAST (CT) CLINICAL HISTORY: 66 years-old Male presenting with Pt c/o headache. TECHNIQUE: Multidetector CT imaging of the head was performed without the use of intravenous contrast. IV contrast: None. A dose lowering technique was used consistent with the principles of ALARA (as low as reasonably achievable). COMPARISON: None. CT DOSE (mGy.cm): The estimated cumulative dose is 638.56 mGycm. 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 Ventricles and sulci normal in size. Brain parenchyma normal in appearance with preserved carvalho-white differentiation. No mass effect or midline shift. No hemorrhage or acute territorial infarct. No extra-axial fluid collection. Paranasal sinuses and mastoid air cells clear. Calvarium intact. IMPRESSION: 1. No acute intracranial pathology. Laboratory Results 03/12/17 19:18 Red Blood Count 4.67, Mean Corpuscular Volume 86.9, Mean Corpuscular Hemoglobin 30.6, Mean Corpuscular Hemoglobin Concent 35.2, Mean Platelet Volume 10.2, Neutrophils (%) (Auto) 91.2, Lymphocytes (%) (Auto) 4.3, Monocytes (%) (Auto) 3.3, Eosinophils (%) (Auto) 0.2, Basophils (%) (Auto) 0.6, Neutrophils # (Auto) 11.07, Lymphocytes # (Auto) 0.52, Monocytes # (Auto) 0.40, Eosinophils # (Auto) 0.02, Basophils # (Auto) 0.07 03/12/17 19:18 Test 03/12/17 19:09 03/12/17 19:18 03/12/17 20:33 Influenza Type A (RT-PCR) Neg for Influ A (NEG) Influenza Type B (RT-PCR) Neg for Influ B (NEG) White Blood Count 12.13 K/uL (4.8-10.8) Red Blood Count 4.67 M/uL (4.7-6.1) Hemoglobin 14.3 g/dL (14.0-18.0) Hematocrit 40.6 % (42-52) Mean Corpuscular Volume 86.9 fL (80-100) Mean Corpuscular Hemoglobin 30.6 pg (25-34) Mean Corpuscular Hemoglobin Concent 35.2 g/dl (32-36) Platelet Count 814 K/uL (130-400) Mean Platelet Volume 10.2 fL (7.4-10.4) Neutrophils (%) (Auto) 91.2 % Lymphocytes (%) (Auto) 4.3 % Monocytes (%) (Auto) 3.3 % Eosinophils (%) (Auto) 0.2 % Basophils (%) (Auto) 0.6 % Neutrophils # (Auto) 11.07 K/uL (1.4-6.5) Lymphocytes # (Auto) 0.52 K/uL (1.2-3.4) Monocytes # (Auto) 0.40 K/uL (0.11-0.59) Eosinophils # (Auto) 0.02 K/uL (0-0.5) Basophils # (Auto) 0.07 K/uL (0-0.2) RDW Standard Deviation 55.4 fL (36.4-46.3) RDW Coefficient of Variation 17.6 % (11.5-14.5) Immature Granulocyte % (Auto) 0.4 % Immature Granulocyte # (Auto) 0.05 K/uL (0.00-0.02) Prothrombin Time 12.3 SECONDS (9.0-12.0) Prothromb Time International Ratio 1.1 (0.9-1.1) Activated Partial Thromboplast Time 32.7 SECONDS (21.0-31.0) Partial Thromboplastin Ratio 1.3 Anion Gap 7.0 mmol/L (3-11) Est Creatinine Clear Calc Drug Dose 92.5 ml/min Estimated GFR () 110.4 Estimated GFR (Non- 95.2 BUN/Creatinine Ratio 22.5 (10-20) Lactic Acid Level 0.9 mmol/L (0.4-2.0) Calcium Level 9.0 mg/dl (8.5-10.1) Magnesium Level 1.9 mg/dl (1.8-2.4) Total Bilirubin 0.6 mg/dl (0.2-1) Aspartate Amino Transf (AST/SGOT) 111 U/L (15-37) Alanine Aminotransferase (ALT/SGPT) 160 U/L (12-78) Alkaline Phosphatase 578 U/L (45-117) Total Protein 7.1 gm/dl (6.4-8.2) Albumin 3.2 gm/dl (3.4-5.0) Globulin 3.9 gm/dl (2.5-4.0) Albumin/Globulin Ratio 0.8 (0.9-2) Lipase 165 U/L (73-393) CSF Color COLORLESS CSF Appearance CLEAR CSF WBC 3 /uL (0-5) CSF RBC 0 /uL (0) CSF Xanthrochromic NO XANTHOCHROMIA CSF Cell Count Tube # 4 CSF Chemistry Tube # 2 CSF Glucose 71 mg/dl (40-70) CSF Total Protein 33.0 mg/dl (15.0-45.0) Medications Administered Medications (Trade) Dose Ordered Sig/Pio Route Start Time Stop Time Status Last Admin Dose Admin Sodium Chloride 1,000 ml @ 999 mls/hr Q1H1M ONCE IV 03/12/17 18:15 03/12/17 19:15 DC 03/12/17 19:33 999 MLS/HR Sodium Chloride 150 ml @ 999 mls/hr Q10M STAT IV 03/12/17 18:51 03/12/17 19:00 DC 03/12/17 20:00 999 MLS/HR Sodium Chloride 1,000 ml @ 999 mls/hr Q1H1M STAT IV 03/12/17 18:51 03/12/17 19:51 DC 03/12/17 18:51 999 MLS/HR Piperacillin Sod/ Tazobactam Sod (Zosyn Iv) 4.5 gm NOW STAT IV 03/12/17 18:52 03/12/17 18:53 DC 03/12/17 21:26 4.5 GM Vancomycin HCl 1750 mg/Sodium Chloride 535 ml @ 200 mls/hr NOW STAT IV 03/12/17 18:58 03/12/17 21:38 03/12/17 20:17 200 MLS/HR Dexamethasone Sodium Phosphate (Decadron Inj) 10 mg NOW ONCE IV 03/12/17 19:15 03/12/17 19:16 DC 03/12/17 19:42 10 MG Prochlorperazine Edisylate (Compazine Inj) 10 mg NOW STAT IV 03/12/17 19:21 03/12/17 19:22 DC 03/12/17 19:45 10 MG Diphenhydramine HCl (Benadryl Inj) 50 mg NOW STAT IV 03/12/17 19:21 03/12/17 19:23 DC 03/12/17 19:43 50 MG Acetaminophen 100 ml @ 400 mls/hr NOW STAT IV 03/12/17 19:21 03/12/17 19:35 DC 03/12/17 19:33 400 MLS/HR Procedure Consent was obtained by patient and was available during this. Patient was agreeable to procedure. Patient was placed in a seated position with a flexed back. Iliac crest was palpated to sacha appropriate insertion point between L4/ L5. The area was marked and cleansed with Betadine x3. Needle was inserted with Lidocaine 1% without epi and 2 cc was injection into the space. Cannula was inserted with ease and once felt to be in the epidural space needle was removed and CSF was obtained into four specimen jars. This was an atraumatic puncture. Cannula was removed and dressing was placed. Patient was instructed to lay flat. Patient tolerated the procedure well. EBL < 1cc. ECG Indication: tachycardia Rate (beats per minute): 105 Rhythm: normal sinus, sinus tachycardia Findings: no acute ischemic change, no ectopy Change: no significant change ED Course 1811: Patient was assessed by resident and w/u initiated; NSS 1 L @ 999/h x 1 1900: Decadron 10 mg IV ordered x 1, Prochlorperazine 10 mg IV, Diphenhydramine 50 mg IV, Tylenol IV 2014: Consent was obtained for lumbar puncture 2029: Lumbar puncture completed, patient tolerated well 2129: Discussed case with Dr Marrero, patient will be evaluated by hospitalist Medical Decision Differential diagnosis: Etiologies such as migraine headache, meningitis, sinusitis, CO exposure, ICH, SAH, infection, tumor, headache, sinus thrombosis, arterial dissection, as well as others were entertained. This is a 66 yo m that is presenting to us with neck stiffness and new onset headache concerning for meningitis. The patient was assessed and received a bolus of fluids as well as initiation of antibiotic therapy which includes zosyn and vanco. A CBC reflected a leukocytosis concerning for infection. A CT was performed and was negative for acute process so decision was made to undergo LP which was completed without complications. As there was a count of 3 WBC and 0 RBC on the CSF count there was question if the patient is suffering from a mild viral meningitis. No findings on CXR indicating that the lungs are source of infection. Slightly elevated LFT which appears to be BL for this patient based on chart review as well as a normal lipase. Influenza PCR was negative. We discussed the case with Dr Marrero and patient will be evaluated further for admission Head Trauma GCS Score: 15 Blood Pressure Screening Patient's blood pressure: Elevated blood pressure Blood pressure disposition: Elevated BP felt to be situational Impression Primary Impression: Fever Additional Impression: SIRS (systemic inflammatory response syndrome) Departure Information Referrals Chino Abdul MD (PCP) Patient Instructions My [facility] Problem Qualifiers
[2017-03-12] MEDS ORDERED: DEXAMETHASONE SOD INJ 10 MG/ML VIAL IV ONE (19:15)
[2017-03-12] MEDS ORDERED: PROCHLORPERAZINE 5 MG/ML 2 ML VIAL IV STA (19:21)
[2017-03-12] MEDS ORDERED: ACETAMINOPHEN IV 100 ML IV STA (19:21)
[2017-03-12] MEDS ORDERED: DiphenhydrAMINE HCL 50 MG/ML VIAL IV STA (19:21)
--- NOTE | 2017-03-12 19:30 | EMERGENCY ROOM VISIT NOTE ---
ED Visit Note First contact with patient: 18:11 Resident Physician Supervision Note: I interviewed and examined the patient. Discussed with Dr. Gonzalez and agree with findings and plan as documented in the note. Documented By: Eloy Constantino Problem List Medical Problems: (1) Hypertension Status: Chronic (2) Melanoma Status: Resolved (3) Pancreatitis Status: Resolved Surgical Problems: (1) History of back surgery Status: Resolved (2) S/P cholecystectomy Status: Resolved (3) S/P colon resection Status: Resolved Current/Historical Medications Scheduled Aspirin (Aspirin Ec), 325 MG PO DAILY Clonazepam (Klonopin), 0.5 MG PO DAILY@2130 Escitalopram (Lexapro), 10 MG PO DAILY Omeprazole (Prilosec), 20 MG PO BID Primidone (Mysoline), 75 MG PO QPM Propranolol Hcl (Propranolol ER), 60 MG PO DAILY Allergies Coded Allergies: No Known Allergies (Unverified , 12/03/16) Vital Signs Date Time Temp Pulse Resp B/P (MAP) Pulse Ox O2 Delivery O2 Flow Rate FiO2 03/12/17 17:08 38.1 55 22 94 Room Air Laboratory Results Test 03/12/17 18:12 03/12/17 18:13 03/12/17 19:18 Departure Information Referrals Chino Abdul MD (PCP) Patient Instructions My [facility]
[2017-03-12 19:33] LABS: BASO % 0.6 %; BASO ABS # 0.07 K/uL (0-0.2); COMPLETE YES; EOS % 0.2 %; HEMATOCRIT 40.6 % (42-52); IG% 0.4 %; LYMPH % 4.3 %; LYMPH ABS # 0.52 K/uL (1.2-3.4); MEAN CELL VOLUME 86.9 fL (80-100); MEAN CORPUSCULAR HEMOGLOBIN 30.6 pg (25-34); MEAN CORPUSCULAR HGB CONC 35.2 g/dl (32-36); MEAN PLATELET VOLUME 10.2 fL (7.4-10.4); MONO % 3.3 %; NEUT % 91.2 %; PLATELET COUNT 814 K/uL (130-400); RED BLOOD COUNT 4.67 M/uL (4.7-6.1); WHITE BLOOD COUNT 12.13 K/uL (4.8-10.8)
[2017-03-12 19:44] LABS: INR 1.1 (0.9-1.1); PARTIAL THROMBOPLASTIN RATIO 1.3; PROTHROMBIN TIME (PATIENT) 12.3 SECONDS (9.0-12.0)
[2017-03-12 19:55] LABS: ALB/GLOB RATIO 0.8 (0.9-2); BUN/CREATININE RATIO 22.5 (10-20); CREATININE 0.77 mg/dl (0.60-1.40); MAGNESIUM 1.9 mg/dl (1.8-2.4); POTASSIUM 3.6 mmol/L (3.5-5.1)
--- NOTE | 2017-03-12 20:04 | DIAGNOSTIC IMAGING REPORT ---
HEAD WITHOUT CONTRAST (CT) CLINICAL HISTORY: 66 years-old Male presenting with Pt c/o headache. TECHNIQUE: Multidetector CT imaging of the head was performed without the use of intravenous contrast. IV contrast: None. A dose lowering technique was used consistent with the principles of ALARA (as low as reasonably achievable). COMPARISON: None. CT DOSE (mGy.cm): The estimated cumulative dose is 638.56 mGycm. FINDINGS: Supplier Quality topogram: Unremarkable. Ventricles and sulci normal in size. Brain parenchyma normal in appearance with preserved carvalho-white differentiation. No mass effect or midline shift. No hemorrhage or acute territorial infarct. No extra-axial fluid collection. Paranasal sinuses and mastoid air cells clear. Calvarium intact. IMPRESSION: 1. No acute intracranial pathology. Electronically signed by: Duane Cisneros M.D. 03/12/2017 8:03 PM Dictated Date/Time: 03/12/2017 8:02 PM
[2017-03-12 20:10] LABS: INFLUENZA A PCR Neg for Influ A (NEG); INFLUENZA B PCR Neg for Influ B (NEG)
[2017-03-12] MEDS ORDERED: XYLOCAINE 1%/SOD BICARB 20 ML VIAL INFIL ONE (20:27)
[2017-03-12 21:18] LABS: CSF APPEARANCE CLEAR; CSF COLOR COLORLESS; CSF XANTHOCHROMIC NO XANTHOCHROMIA
[2017-03-12] MEDS ORDERED: PIPERACILLIN/TAZOBACTAM 4.5 GM/100ML D5W ONE (21:23)
[2017-03-12 21:29] LABS: CSF CHEMISTRY TUBE # 2
[2017-03-12] MEDS ORDERED: ONDANSETRON INJ 2 MG/ML 2 ML VIAL IV PRN (23:15)
[2017-03-12] MEDS ORDERED: POLYETHYLENE (MIRALAX) 17 GM PACK PO PRN (23:15)
[2017-03-12] MEDS ORDERED: MAGNESIUM HYDROXIDE SUSP 30 ML UDC PO PRN (23:15)
[2017-03-12] MEDS ORDERED: ALUMINUM/MAGNESIUM/SIMETH (MAALOX MAX) 30 ML UDC PO PRN (23:15)
[2017-03-12] MEDS ORDERED: PRIMIDONE 50 MG TAB PO STA (23:24)
[2017-03-12] MEDS ORDERED: CLONAZEPAM 0.5 MG TAB PO STA (23:25)
[2017-03-12] MEDS ORDERED: PIPERACILL/TAZOBAC CONSULT ACTIVE PRN (23:30)
[2017-03-12] MEDS ORDERED: VANCOMYCIN CONSULT ACTIVE PRN (23:30)
--- NOTE | 2017-03-12 23:30 | History and Physical ---
History & Physical Date & Time of Service: Mar 12, 2017 at 23:15 Chief Complaint: 103.9 Temp Primary Care Physician: Chino Abdul MD History of Present Illness The patient is a 66 year old male with a history of distal pancreatectomy and splenectomy in 2017, who presents with fever. The fever started today. He measured his temperature and it was 103.1. He took Tylenol but states the fever dropped only minimally, cannot give the specific temperature. He came directly to the ED, brought in by , for further evaluation. His complaints related to the fever includes, generalized joint discomfort across the whole body, whithout focus to one specific area. He also notes that for the past 2 days, he has headaches on and off. The pain is across his forehead without radiation across the scalp or neck. He currently denies neck stiffness, though had apparently noted this previously on arrival. He denies any photophobia or visual changes. He states he appetite has been at baseline He has a Jejunostomy from his pancreatic surgery, and has had normal output. He denies any diarrhea, mucus or bloody contents in his stoma. He denies dysuria, urinary or urinary frequency. He denies denies chest pain, cough, shortness of breath, palpitations, syncope or lower extremity edema. He has a very complicated recent GI history. He notes a history of recurrent pancreatitis. 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 He sees Dr. Gar from Pancreatic Surgery at [facility]. He has an appointment for management of his fistulas He was previously on TPN but not anymore. In the ED he was found to be febrile. He was treated with broad spectrum antibiotics. An LP was done which was grossly unremarkable. Given history of splenectomy with fever, admission was decided to observe patient.. Past Medical/Surgical History Medical Problems: (1) Hypertension Status: Chronic (2) Melanoma Status: Resolved (3) Pancreatitis Status: Resolved Depression History of Sacral Decubitus Ulcer with MRSA History of MRSA Surgical Problems: (1) History of back surgery Status: Resolved (2) S/P cholecystectomy Status: Resolved (3) S/P colon resection Status: Resolved Hx Splenic Artery aneurysm S/p splenectomy S/p Distal Pancreatectomy Hx of abdominal wall fistulation Family History FH: cancer FH: gallbladder disease FH: heart disease Hypertension Social History Smoking Status: Never Smoker Smokeless Tobacco Use: No Alcohol Use: none Drug Use: none Marital Status: Housing status: lives with family Occupational Status: retired Multi-Drug Resistant Organisms History of MDRO: Yes Type of MDRO: MRSA Allergies Coded Allergies: No Known Allergies (Unverified , 12/03/16) Home Medications Scheduled Aspirin (Aspirin Ec), 325 MG PO DAILY Clonazepam (Klonopin), 0.5 MG PO DAILY@2130 Escitalopram (Lexapro), 10 MG PO DAILY Omeprazole (Prilosec), 20 MG PO BID Primidone (Mysoline), 75 MG PO QPM Propranolol Hcl (Propranolol ER), 60 MG PO DAILY Review of Systems A 10 point review of systems was negative unless stated above. Physical Exam Vital Signs Date Time Temp Pulse Resp B/P (MAP) Pulse Ox O2 Delivery O2 Flow Rate FiO2 03/12/17 22:31 89 18 108/66 96 Nasal Cannula 2.0 03/12/17 21:27 37.8 97 22 141/79 96 Nasal Cannula 2.0 03/12/17 20:34 105 03/12/17 20:15 106 18 127/70 97 Nasal Cannula 2.0 03/12/17 19:40 106 18 166/88 91 Room Air 03/12/17 17:08 38.1 55 22 94 Room Air General Appearance: WD/WN, no apparent distress, + pertinent finding ( diaphoretic) Head: normocephalic, atraumatic Eyes: normal inspection, EOMI ENT: hearing grossly normal, TMs normal Neck: supple, no adenopathy, no JVD Respiratory/Chest: lungs clear Diagnostics Laboratory Results Results Past 24 Hours Test 03/12/17 19:09 03/12/17 19:18 03/12/17 20:33 Range/Units Influenza Type A (RT-PCR) Neg for Influ A NEG Influenza Type B (RT-PCR) Neg for Influ B NEG White Blood Count 12.13 4.8-10.8 K/uL Red Blood Count 4.67 4.7-6.1 M/uL Hemoglobin 14.3 14.0-18.0 g/dL Hematocrit 40.6 42-52 % Mean Corpuscular Volume 86.9 80-100 fL Mean Corpuscular Hemoglobin 30.6 25-34 pg Mean Corpuscular Hemoglobin Concent 35.2 32-36 g/dl Platelet Count 814 130-400 K/uL Mean Platelet Volume 10.2 7.4-10.4 fL Neutrophils (%) (Auto) 91.2 % Lymphocytes (%) (Auto) 4.3 % Monocytes (%) (Auto) 3.3 % Eosinophils (%) (Auto) 0.2 % Basophils (%) (Auto) 0.6 % Neutrophils # (Auto) 11.07 1.4-6.5 K/uL Lymphocytes # (Auto) 0.52 1.2-3.4 K/uL Monocytes # (Auto) 0.40 0.11-0.59 K/uL Eosinophils # (Auto) 0.02 0-0.5 K/uL Basophils # (Auto) 0.07 0-0.2 K/uL RDW Standard Deviation 55.4 36.4-46.3 fL RDW Coefficient of Variation 17.6 11.5-14.5 % Immature Granulocyte % (Auto) 0.4 % Immature Granulocyte # (Auto) 0.05 0.00-0.02 K/uL Prothrombin Time 12.3 9.0-12.0 SECONDS Prothromb Time International Ratio 1.1 0.9-1.1 Activated Partial Thromboplast Time 32.7 21.0-31.0 SECONDS Partial Thromboplastin Ratio 1.3 Sodium Level 139 136-145 mmol/L Potassium Level 3.6 3.5-5.1 mmol/L Chloride Level 105 98-107 mmol/L Carbon Dioxide Level 27 21-32 mmol/L Anion Gap 7.0 3-11 mmol/L Blood Urea Nitrogen 17 7-18 mg/dl Creatinine 0.77 0.60-1.40 mg/dl Est Creatinine Clear Calc Drug Dose 92.5 ml/min Estimated GFR () 110.4 Estimated GFR (Non- 95.2 BUN/Creatinine Ratio 22.5 10-20 Random Glucose 107 70-99 mg/dl Lactic Acid Level 0.9 0.4-2.0 mmol/L Calcium Level 9.0 8.5-10.1 mg/dl Magnesium Level 1.9 1.8-2.4 mg/dl Total Bilirubin 0.6 0.2-1 mg/dl Aspartate Amino Transf (AST/SGOT) 111 15-37 U/L Alanine Aminotransferase (ALT/SGPT) 160 12-78 U/L Alkaline Phosphatase 578 45-117 U/L Total Protein 7.1 6.4-8.2 gm/dl Albumin 3.2 3.4-5.0 gm/dl Globulin 3.9 2.5-4.0 gm/dl Albumin/Globulin Ratio 0.8 0.9-2 Lipase 165 73-393 U/L CSF Color COLORLESS CSF Appearance CLEAR CSF WBC 3 0-5 /uL CSF RBC 0 0 /uL CSF Xanthrochromic NO XANTHOCHROMIA CSF Cell Count Tube # 4 CSF Chemistry Tube # 2 CSF Glucose 71 40-70 mg/dl CSF Total Protein 33.0 15.0-45.0 mg/dl Microbiology Results 03/12/17 Blood Culture, Received Pending 03/12/17 Blood Culture, Received Pending 03/12/17 Gram Stain - Final, Resulted 03/12/17 CSF Culture, Resulted Pending Diagnostic Radiology Review of CXR Report of as normal; on review costophrenic angle does appear blurred, possibly indicating early consolidation? CXR normal Impression Assessment and Plan 66 year old male with history of pancreatectomy and splenectomy presenting with fevers. Initial concern appeared to be meningitis, but CSF studies are not grossly concerning for a bacterial process and clinically, his exam findings to not indicate meningism. He does have splenectomy putting at risk for infections from encapsulated organisms, thought the source of his fevers is unknown. Our plan for him is as follows: SIRS - WBC > 12; HR > 90; infective source unclear to call sepsis at this point - CXR reported as normal but haziness at left costophrenic angle may ?suggest early infiltrate? - UA with cultures if indicated pending - LP grossly unremarkable, cultures pending - Blood cultures pending - Will order a pro-calcitonin to evaluate for underlying bacterial etiology - Vancomycin and Zosyn empiric therapy - Tylenol for fevers - Consult ID due to higher risk for infection with encapsulated organisms History of Chronic Pancreatitis with Pancreatectomy - Benign abdominal exam - Residual abdominal fistulation under jejunostomy - Lipase normal - No findings on exam suggestive of intra-abdominal etiology - Has follow-up at [facility] in 2 weeks Hypertension - Continue Propranolol Gastroesophageal Reflux Disease - Continue Prilosec Depression/Anxiety - Continue Zoloft - Continue Klonopin Tremors - Continue Primidone DVT Prophylaxis - SCD Knee, UMESH Hose due to LP Code Status - Level I Full Code Disposition - Med/Surg - OT and PT evaluations 66 y/o M Hx Splenectomy, chronic pancreatitis - previous episodes of biliary sepsis. Presents with temp of 103 - had c/o a frontal CHO for 2 days without photophobia or neck rigidity. An LP was performed in the ER - results are equivocal but not consistent with bacterial meningitis. OE AAO x 3 S1,2 R CTAB NT, ND No CCE P: Due to splenectomy and previous sepsis episodes - pt placed on broad spectrum antibiotics pending culture results - no evidence of intraabdominal source presently and may have early viral meneingitis although CHO had resolved at time of evaluation. Above discussed with pt, resident, ER attending Level of Care Med/Surg Resuscitation Status FULL RESUSCITATION VTE Prophylaxis VTE Risk Assessment Done? Y/N: Yes Risk Level: Moderate Given or contraindicated: Enoxaparin (Lovenox)SQ, T.E.D. Stockings, SCD's
[2017-03-13] VITALS (15 sets, daily range): BP systolic 73–122; BP diastolic 45–68; PULSE 64–125; TEMP 36.4–37.9; O2SAT 91–98; Ht 172.7 cm; Wt 69.3 kg
[2017-03-13] MEDS: PIPERACILL/TAZOBAC IV 3.375 GM in DEXTROSE 5% 100ML 100 ML IV SCH ×3 (05:09→19:53)
[2017-03-13 06:48] LABS: BASO % 0.3 %; BASO ABS # 0.04 K/uL (0-0.2); COMPLETE YES; IG% 0.5 %; LYMPH % 3.6 %; LYMPH ABS # 0.54 K/uL (1.2-3.4); MEAN CORPUSCULAR HEMOGLOBIN 29.2 pg (25-34); MEAN CORPUSCULAR HGB CONC 32.8 g/dl (32-36); MEAN PLATELET VOLUME 10.7 fL (7.4-10.4); MONO % 1.9 %; NEUT % 93.7 %; PLATELET COUNT 823 K/uL (130-400); RED BLOOD COUNT 5.17 M/uL (4.7-6.1); WHITE BLOOD COUNT 15.21 K/uL (4.8-10.8)
--- NOTE | 2017-03-13 06:48 | Pharmacy Progress Note ---
Pharmacy Abx Initial Consult Date of Service Mar 13, 2017. Pharmacy Dosing Scope Date of Consult: 03/12/17 Consultation requested by: Dr. Alvarenga Pharmacy is consulted to initiate Vancomycin and Zosyn IV dosing therapy, order appropriate labs and adjust drug dose/frequency. Subjective The patient is a 66 year old male admitted on Mar 12, 2017 at 23:08 who presents with fever to the ED. 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 After work up in the ED he is admitted by Dr. Alvarenga and will be treated empirically for sepsis with broad spectrum agents Vancomycin and Zosyn to be followed by pharmacy. Objective Height (Feet): 5 Height (Inches): 8.00 Weight (Kilograms): 69.700 Vital Signs (Past 12Hrs) Vital Signs Past 12 Hours Date Time Temp Pulse Resp B/P (MAP) Pulse Ox O2 Delivery O2 Flow Rate FiO2 03/13/17 05:23 Nasal Cannula 2.0 03/13/17 04:19 36.7 76 18 113/68 03/13/17 00:54 36.7 76 18 113/68 (83) 96 Nasal Cannula 3.0 03/13/17 00:43 36.5 80 18 125/82 96 03/12/17 22:31 89 18 108/66 96 Nasal Cannula 2.0 03/12/17 21:27 37.8 97 22 141/79 96 Nasal Cannula 2.0 03/12/17 20:34 105 03/12/17 20:15 106 18 127/70 97 Nasal Cannula 2.0 03/12/17 19:40 106 18 166/88 91 Room Air Lab Results (24Hrs) Laboratory Tests (24 Hours) Test 03/12/17 19:18 03/13/17 05:52 Lactic Acid Level 0.9 mmol/L (0.4-2.0) White Blood Count 12.13 K/uL (4.8-10.8) H Red Blood Count 4.67 M/uL (4.7-6.1) L Hemoglobin 14.3 g/dL (14.0-18.0) Hematocrit 40.6 % (42-52) L Mean Corpuscular Volume 86.9 fL (80-100) Mean Corpuscular Hemoglobin 30.6 pg (25-34) Mean Corpuscular Hemoglobin Concent 35.2 g/dl (32-36) Platelet Count 814 K/uL (130-400) H Mean Platelet Volume 10.2 fL (7.4-10.4) Neutrophils (%) (Auto) 91.2 % Lymphocytes (%) (Auto) 4.3 % Monocytes (%) (Auto) 3.3 % Eosinophils (%) (Auto) 0.2 % Basophils (%) (Auto) 0.6 % Neutrophils # (Auto) 11.07 K/uL (1.4-6.5) H Lymphocytes # (Auto) 0.52 K/uL (1.2-3.4) L Monocytes # (Auto) 0.40 K/uL (0.11-0.59) Eosinophils # (Auto) 0.02 K/uL (0-0.5) Basophils # (Auto) 0.07 K/uL (0-0.2) Procalcitonin 1.09 ng/ml (0-0.5) H Micro Results Date/Time Source Procedure Growth Status 03/12/17 20:23 Blood Blood Culture Pending Received 03/12/17 19:18 Blood Blood Culture Pending Received 03/12/17 20:33 Cerebral Spinal Fluid Gram Stain - Final Resulted 03/12/17 20:33 Cerebral Spinal Fluid CSF Culture Pending Resulted Risk Factors for Resistance * Immunocompromised * History of infection with a multidrug-resistant organism: MRSA Assessment & Plan Assessment 66 year old male admitted with possible sepsis Plan Vancomycin and Zosyn for treatment of sepsis Vancomycin IV * Loading dose: 1750 mg (~25mg/kg) * Maintenance dose: 1000mg IV (15 mg/kg) every 10 hours * Goal trough level for Sepsis: 15 to 20 mcg/mL * Trough level prior to 1400 dose on 03/14/17 Piperacillin/tazobactam * 4.5 g bolus administered over 30 minutes, then 3.375 g IV extended infusion every 8 hours for CrCl greater than 20 mL/min Pharmacy will continue to follow and will adjust dose/frequency as necessary. Thank you.
[2017-03-13] MEDS: ACETAMINOPHEN 325 MG TAB PO PRN ×3 (07:03→19:46)
[2017-03-13 07:14] LABS: CALCIUM 9.2 mg/dl (8.5-10.1); CREATININE 0.78 mg/dl (0.60-1.40)
[2017-03-13] MEDS: VANCOMYCIN INJ 1,000 MG in SODIUM CHLORIDE 0.9% 250ML 250 ML IV SCH ×2 (07:47→17:40)
[2017-03-13] MEDS: ESCITALOPRAM OXALATE 10 MG TAB PO SCH (07:48)
[2017-03-13] MEDS: ASPIRIN 325 MG ECTAB PO SCH (07:48)
[2017-03-13] MEDS: PANTOprazole SOD 40 MG TAB PO SCH ×2 (07:49→22:33)
[2017-03-13] MEDS ORDERED: PROPRANOLOL HCL 60 MG LA CAP PO SCH (08:00)
[2017-03-13] MEDS ORDERED: ENOXAPARIN 40 MG/0.4 ML SYR SQ SCH (08:00)
[2017-03-13 08:25] LABS: URINE APPEARANCE CLEAR (CLEAR); URINE BILIRUBIN NEG (NEG); URINE COLOR DK YELLOW; URINE NITRITE NEG (NEG); URINE PH 5.5 (4.5-7.5); URINE SPECIFIC GRAVITY 1.021 (1.000-1.030); UROBILINOGEN NEG (NEG); ZZUR CULT IF INDIC CLEAN CATCH NO
[2017-03-13 08:28] LABS: MANUAL MICROSCOPIC REQUIRED? NO; REVIEW REQ? NO
[2017-03-13 08:30] LABS: ALB/GLOB RATIO 0.8 (0.9-2)
--- NOTE | 2017-03-13 12:09 | Progress Note ---
Progress Note Date of Service Mar 13, 2017. Progress Note ID Consult Dictated #[id number] A/P: 1. Fever, leukocytosis 2. Abd fistula -Continue abx, follow cultures -Suggest ct abd/pelvis r/o collection -will follow, thank you
[2017-03-13] MEDS ORDERED: SODIUM CHLORIDE 0.9% 1000ML 1,000 ML IV ONE ×2 (12:41→15:59)
[2017-03-13] MEDS ORDERED: OPTIRAY 320 IV PRN (13:00)
--- NOTE | 2017-03-13 17:13 | DIAGNOSTIC IMAGING REPORT ---
(CHEST) THORAX WITH CT DOSE: 850.46 mGycm HISTORY: Infection fever, splenectomy ?source TECHNIQUE: Multiaxial CT images of the chest were performed following the intravenous administration of contrast. A dose lowering technique was utilized adhering to the principles of ALARA. COMPARISON: None. FINDINGS: Postlaminectomy changes left upper quadrant of the abdomen. Trace pleural fluid both lung bases. Mild bibasilar dependent atelectasis. No focal infiltrate. Minimal atelectasis lateral aspect right midlung. IMPRESSION: 1. Trace pleural fluid both lung bases. 2. Postoperative changes left upper quadrant of the abdomen. 3. Mild scattered atelectatic change. 4. No acute infiltrative process. The above report was generated using voice recognition software. It may contain grammatical, syntax or spelling errors. Electronically signed by: Jett Lofton M.D. 03/13/2017 5:12 PM Dictated Date/Time: 03/13/2017 5:08 PM
--- NOTE | 2017-03-13 17:26 | DIAGNOSTIC IMAGING REPORT ---
ABD/PELVIS IV AND ORAL CONT CLINICAL HISTORY: 66 years-old Male presenting with multiple abdominal fistulas, fever, splenectomy ?colitis/abscess. TECHNIQUE: Multidetector CT of the abdomen and pelvis was performed after the administration of intravenous contrast. IV contrast: 120 mL of Optiray 320. A dose lowering technique was used consistent with the principles of ALARA (as low as reasonably achievable). COMPARISON: 12/03/2016. CT DOSE (mGy.cm): The estimated cumulative dose is 850.46. FINDINGS: Log Snaker topogram: Cholecystectomy clips noted. Endovascular coils project over the epigastrium. Lung bases: Minimal dependent changes likely atelectasis. Normal heart size. Aortic valve calcification. Trace pleural effusions, left greater than right. Liver: Normal morphology. Mildly heterogeneous enhancement of the parenchyma. Periportal edema. Patent hepatic vasculature. Biliary: No intrahepatic or extrahepatic biliary ductal dilatation. Gallbladder surgically absent. Pancreas: Postsurgical changes of distal splenectomy. Residual pancreatic neck and head with mild fatty atrophy. Spleen: Surgically absent. The previously noted collection in the splenectomy bed has significantly decreased in size with only a small laminar fluid collection still apparent. The surgical drain has been removed. Soft tissue tracking linearly from the midline epigastrium and the ventral abdominal wall towards the distal pancreatectomy bed contains a few foci of gas and may represent a fistula. Adjacent surgical clips noted along a loop of small bowel (series 6 image 154). A enteroenteric anastomosis at this site cannot be excluded. Adrenal glands: Persistent nodular thickening of the left adrenal gland. Right adrenal gland normal. Kidneys and ureters: Normal. No hydronephrosis. Bladder: Mild circumferential bladder wall thickening. Pelvic organs: Prostate enlargement likely secondary to benign prostatic hyperplasia. Bowel: A colocolonic anastomosis noted in the region of the upper rectum. The colon appears contiguous without evidence of a colostomy. Oral contrast has transited to the distal small bowel. No bowel obstruction. No extraluminal oral contrast is noted. Fat stranding around the gastric antrum and duodenal bulb is new from prior. This does not appear to be centered at the pancreatic head. Peritoneal cavity: Limited or fluid in the splenectomy bed is too small to measure. No free fluid or gas. Vasculature: Atherosclerosis of the normal caliber abdominal aorta. Vascular stent in place in the sella iliac and hepatic artery. IVC patent.. Lymph nodes: Multiple prominent retroperitoneal and upper abdominal lymph nodes measure up to 12 mm in the short axis. These have increased in size from prior. Abdominal wall: A midline ventral abdominal wall defect is noted with tracking linear soft tissue and gas towards the distal pancreatectomy bed. This does not clearly represent an ostomy. Musculoskeletal: Degenerative changes of the spine. IMPRESSION: 1. Evolving changes with near complete resolution of the fluid collection in the splenectomy bed. 2. Postsurgical changes of distal pancreatectomy with persistent linear soft tissue tracking from the midline ventral abdomen in the epigastrium to the pancreatectomy bed, containing gas. No significant fluid component within this laminar collection. Correlation with surgical history and potential direct injection of contrast through this fistula could be considered. 3. No evidence of extraluminal oral contrast to suggest a bowel leak. 4. Inflammatory changes in the region of the gastric antrum and duodenal bulb, new from prior. Gastritis or duodenitis cannot be excluded. 5. Periportal edema and heterogeneous enhancement of the liver. This could represent inflammatory change or parenchymal edema in the setting of aggressive hydration. This could potentially be secondary to adjacent inflammatory changes at the gastric antrum and duodenum. 6. Prominent upper abdominal and retroperitoneal lymph nodes measuring up to 12 mm in the short axis. These could be reactive to ongoing inflammation. Electronically signed by: Duane Cisneros M.D. 03/13/2017 5:24 PM Dictated Date/Time: 03/13/2017 5:08 PM
--- NOTE | 2017-03-13 18:14 | Family Medicine Progress Note ---
Progress Note Date of Service Mar 13, 2017. Subjective Pt evaluation today including: conversation w/ patient, physical exam, chart review, lab review The patient was seen and examined at bedside. No acute overnight events. Patient is reporting that his CHO resolved. He is reporting a return of his appetite. He is still sweating and is reporting feeling hot. No changes in his ostomy output. Plan of care was described to the patient and all questions were answered. Constitutional: + fever, + sweats, No chills Respiratory: No cough, No sputum, No wheezing, No shortness of breath Cardiovascular: No chest pain Abdomen: No pain, No nausea, No vomiting, No diarrhea Male : No dysuria Psychiatric: No depression symptoms Skin: No rash Objective Physical Exam General Appearance: WD/WN, no apparent distress, + thin Neck: supple, no adenopathy, thyroid normal Respiratory/Chest: chest non-tender, lungs clear, normal breath sounds, no accessory muscle use Cardiovascular: regular rate, rhythm, no edema, no gallop, no JVD, no murmur Abdomen: normal bowel sounds, soft, + pertinent finding (pt has an ileostomy bag draining liquid brown material, abdomen is soft and non tender, no gaurding ,there is a herniation in the midline distal to the ileostomy.) Extremities: normal range of motion, non-tender, normal inspection, no pedal edema, no calf tenderness Neurologic/Psychiatric: esthetician spa II-XII nml as tested, no motor/sensory deficits, alert, normal mood/affect, oriented x 3 Skin: no rash Laboratory Results (CHEST) THORAX WITH CT DOSE: 850.46 mGycm HISTORY: Infection fever, splenectomy ?source TECHNIQUE: Multiaxial CT images of the chest were performed following the intravenous administration of contrast. A dose lowering technique was utilized adhering to the principles of ALARA. COMPARISON: None. FINDINGS: Postlaminectomy changes left upper quadrant of the abdomen. Trace pleural fluid both lung bases. Mild bibasilar dependent atelectasis. No focal infiltrate. Minimal atelectasis lateral aspect right midlung. IMPRESSION: 1. Trace pleural fluid both lung bases. 2. Postoperative changes left upper quadrant of the abdomen. 3. Mild scattered atelectatic change. 4. No acute infiltrative process. ABD/PELVIS IV AND ORAL CONT CLINICAL HISTORY: 66 years-old Male presenting with multiple abdominal fistulas, fever, splenectomy ?colitis/abscess. TECHNIQUE: Multidetector CT of the abdomen and pelvis was performed after the administration of intravenous contrast. IV contrast: 120 mL of Optiray 320. A dose lowering technique was used consistent with the principles of ALARA (as low as reasonably achievable). COMPARISON: 12/03/2016. CT DOSE (mGy.cm): The estimated cumulative dose is 850.46. FINDINGS: Feather Shaper topogram: Cholecystectomy clips noted. Endovascular coils project over the epigastrium. Lung bases: Minimal dependent changes likely atelectasis. Normal heart size. Aortic valve calcification. Trace pleural effusions, left greater than right. Liver: Normal morphology. Mildly heterogeneous enhancement of the parenchyma. Periportal edema. Patent hepatic vasculature. Biliary: No intrahepatic or extrahepatic biliary ductal dilatation. Gallbladder surgically absent. Pancreas: Postsurgical changes of distal splenectomy. Residual pancreatic neck and head with mild fatty atrophy. Spleen: Surgically absent. The previously noted collection in the splenectomy bed has significantly decreased in size with only a small laminar fluid collection still apparent. The surgical drain has been removed. Soft tissue tracking linearly from the midline epigastrium and the ventral abdominal wall towards the distal pancreatectomy bed contains a few foci of gas and may represent a fistula. Adjacent surgical clips noted along a loop of small bowel (series 6 image 154). A enteroenteric anastomosis at this site cannot be excluded. Adrenal glands: Persistent nodular thickening of the left adrenal gland. Right adrenal gland normal. Kidneys and ureters: Normal. No hydronephrosis. Bladder: Mild circumferential bladder wall thickening. Pelvic organs: Prostate enlargement likely secondary to benign prostatic hyperplasia. Bowel: A colocolonic anastomosis noted in the region of the upper rectum. The colon appears contiguous without evidence of a colostomy. Oral contrast has transited to the distal small bowel. No bowel obstruction. No extraluminal oral contrast is noted. Fat stranding around the gastric antrum and duodenal bulb is new from prior. This does not appear to be centered at the pancreatic head. Peritoneal cavity: Limited or fluid in the splenectomy bed is too small to measure. No free fluid or gas. Vasculature: Atherosclerosis of the normal caliber abdominal aorta. Vascular stent in place in the sella iliac and hepatic artery. IVC patent.. Lymph nodes: Multiple prominent retroperitoneal and upper abdominal lymph nodes measure up to 12 mm in the short axis. These have increased in size from prior. Abdominal wall: A midline ventral abdominal wall defect is noted with tracking linear soft tissue and gas towards the distal pancreatectomy bed. This does not clearly represent an ostomy. Musculoskeletal: Degenerative changes of the spine. IMPRESSION: 1. Evolving changes with near complete resolution of the fluid collection in the splenectomy bed. 2. Postsurgical changes of distal pancreatectomy with persistent linear soft tissue tracking from the midline ventral abdomen in the epigastrium to the pancreatectomy bed, containing gas. No significant fluid component within this laminar collection. Correlation with surgical history and potential direct injection of contrast through this fistula could be considered. 3. No evidence of extraluminal oral contrast to suggest a bowel leak. 4. Inflammatory changes in the region of the gastric antrum and duodenal bulb, new from prior. Gastritis or duodenitis cannot be excluded. 5. Periportal edema and heterogeneous enhancement of the liver. This could represent inflammatory change or parenchymal edema in the setting of aggressive hydration. This could potentially be secondary to adjacent inflammatory changes at the gastric antrum and duodenum. 6. Prominent upper abdominal and retroperitoneal lymph nodes measuring up to 12 mm in the short axis. These could be reactive to ongoing inflammation. HEAD WITHOUT CONTRAST (CT) CLINICAL HISTORY: 66 years-old Male presenting with Pt c/o headache. TECHNIQUE: Multidetector CT imaging of the head was performed without the use of intravenous contrast. IV contrast: None. A dose lowering technique was used consistent with the principles of ALARA (as low as reasonably achievable). COMPARISON: None. CT DOSE (mGy.cm): The estimated cumulative dose is 638.56 mGycm. FINDINGS: Feather Shaper topogram: Unremarkable. Ventricles and sulci normal in size. Brain parenchyma normal in appearance with preserved carvalho-white differentiation. No mass effect or midline shift. No hemorrhage or acute territorial infarct. No extra-axial fluid collection. Paranasal sinuses and mastoid air cells clear. Calvarium intact. IMPRESSION: 1. No acute intracranial pathology. Assessment and Plan 66M with a PMHX of pancreatectomy and splenectomy (has has his Pneumococcal vaccine) p/w a one week history of fevers and sweats. Pt was evaluated for meningitis in the ER 2/2 his CHO. CSF findings were unremarkable. Urine and blood cultures Pending. CT Chest and Abdomen with IV and PO contrast did not show any acute pathology - several possible inflammatory sites. ID and Wound Care on board. SEPSIS w likely GI source - Abdomen is soft and non tender which is a good sign. - WBC > 12; HR > 90 on admission. - LEFTs elevated - appears to be at baseline from October. - Lipase WNL. - Procalcitonin positive. - MRSA +'ve - CT Chest has no acute pathology. - CT abdo w IV and PO contrast shows "persistent linear soft tissue tracking from the midline ventral abdomen in the epigastrium to the pancreatectomy bed, containing gas. ...and potential direct injection of contrast through this fistula could be considered. ... Inflammatory changes in the region of the gastric antrum and duodenal bulb, new from prior. Gastritis or duodenitis cannot be excluded." - consider surgical referral for their input. - Urine and Blood cultures pending. - Will continue empiric treatment with Vanc and Zosyn - pt seems to be getting better. Day #1. - ID on board and following. - Wound care on board. - Pt has follow up at [facility] for Pancreatectomy in two weeks. Hypertension - Will hold beta erick due to low BP. Gastroesophageal Reflux Disease - Continue Prilosec Depression/Anxiety - Continue Zoloft - Continue Klonopin Tremors - Continue Primidone - Holding BB as above. DVT Prophylaxis - SCD Knee, UMESH Hose due to LP Disposition - Tele - OT and PT evaluations FULL CODE Resident Involvement: Resident Care Provided Care Provided: Adult [facility] Medicine
[2017-03-13] MEDS ORDERED: NURSING VERBAL MED ORDER ONE (20:15)
[2017-03-13] MEDS ORDERED: KETOROLAC TROMETHAMINE 30 MG/ML VIAL IV ONE (20:30)
[2017-03-13] MEDS: CLONAZEPAM 0.5 MG TAB PO SCH (21:11)
[2017-03-13] MEDS: PRIMIDONE 50 MG TAB PO SCH (22:34)
[2017-03-14] VITALS (15 sets, daily range): BP systolic 99–181; BP diastolic 54–106; PULSE 58–97; TEMP 36.6–38.9; O2SAT 87–96
--- NOTE | 2017-03-14 00:05 | INFECT. DISEASE CONSULTATION ---
DATE OF CONSULTATION: 03/13/2017 REQUESTING PHYSICIAN: Dr. Marrero. HISTORY OF PRESENT ILLNESS: This is a 66-year-old gentleman who was admitted with fever which began yesterday. 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 He does follow routinely at the [facility] for this. His surgery was complicated by a persistent fistula and need for chronic TPN. He states he was on TPN for 7 months but just has been taken off within the last 2 months. He has gained over 40 pounds. He was seen briefly by infectious diseases at the wound care center some months ago for his fistula and he was treated with antibiotics. He has had significant improvement since last seen. Because of his fever and splenectomy, he did undergo an LP in the Emergency Room. He had only 3 WBCs. His Gram stain had no organisms and no WBCs. Blood and CSF cultures are pending. A chest x-ray was negative. A flu swab was negative. HSV PCR is pending. His LFTs are mildly elevated. His AST is 96, ALT is 149. His procalcitonin was 1. He does have high platelets of 823 and states he has had it for some time due to his splenectomy. His white blood cell count is elevated at 15. He was placed on vancomycin and Zosyn. He did have a T-max of 38.1. His current temperature is 37.8; however, he states he is feeling significantly better. His is with him at the bedside and she has noticed marked improvement since beginning antibiotics. All cultures are pending at this time. He denies any abdominal pain. He states that he has had significantly less drainage from his fistula; however, it has not changed in nature, it does not have foul odor. He does not have increased bleeding. He denies any abdominal pain. He has no chest pain, cough or shortness of breath. Remaining review of systems are reviewed and are unremarkable. MEDICAL HISTORY: Significant for hypertension, melanoma, pancreatitis, depression and sacral decubitus ulcer with MRSA, for which he was seen at the wound care center previously. 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 FAMILY HISTORY: Noncontributory. SOCIAL HISTORY: Negative for tobacco use, alcohol use or drug use. ALLERGIES: He has no known drug allergies. CURRENT MEDICATIONS: Include Klonopin, vancomycin, Ecotrin, Lexapro, propranolol, Protonix, Zosyn, Tylenol, Maalox, milk of magnesia, MiraLax and Zofran. PHYSICAL EXAMINATION: VITAL SIGNS: He is currently with a temperature of 37.8, T-max is 38.1, pulse 70, respiratory rate 18, blood pressure is 73/45, he is sating 94% on room air. GENERAL: He is awake, alert and oriented x3. He is in no acute distress. HEENT: Mucous membranes are moist. Extraocular muscles are intact. HEART: Regular. LUNGS: Clear bilaterally. ABDOMEN: Soft, nontender, nondistended. There is a bag over the fistula with brown tinged fluid. There is no rebound, rigidity or guarding. SKIN: Without rash. EXTREMITIES: There is no lower extremity edema bilaterally. LABORATORY STUDIES: CBC today reveals a white blood cell count of 15.2, hemoglobin 15.1 and platelets are 823. Chemistry panel reveals sodium of 142, potassium 4.0, chloride 108, bicarbonate 27, BUN 13, creatinine 0.7 and glucose is 149. AST is 96 and ALT 149. Flu swab is negative. CSF studies are as above. Cultures are pending from the bloodstream. CSF Gram stain is negative. Culture is pending. Urine culture is pending. Chest x-ray was negative in the ER as well as CT of the head. ASSESSMENT AND PLAN: 1. Fever. 2. Leukocytosis. At this time, he will remain on empiric antibiotics pending the results of blood and urine cultures. I do not suspect meningitis in this patient. Overall, since when he was last seen in the wound care center, he has had marked improvement; however, there is a concern as he has had less drainage from his fistula, if this is due to improvement or blockage. I would recommend a CAT scan of the abdomen and pelvis to look for any collection. Thank you for this consultation. SANDRA
[2017-03-14] MEDS: PIPERACILL/TAZOBAC IV 3.375 GM in DEXTROSE 5% 100ML 100 ML IV SCH ×3 (04:00→20:07)
[2017-03-14] MEDS: VANCOMYCIN INJ 1,000 MG in SODIUM CHLORIDE 0.9% 250ML 250 ML IV SCH ×3 (04:00→23:36)
[2017-03-14 05:43] LABS: BASO % 1.4 %; BASO ABS # 0.13 K/uL (0-0.2); COMPLETE YES; EOS % 1.3 %; HEMATOCRIT 40.1 % (42-52); IG% 0.6 %; LYMPH % 9.8 %; LYMPH ABS # 0.89 K/uL (1.2-3.4); MEAN CELL VOLUME 87.6 fL (80-100); MEAN CORPUSCULAR HEMOGLOBIN 28.4 pg (25-34); MEAN CORPUSCULAR HGB CONC 32.4 g/dl (32-36); MEAN PLATELET VOLUME 10.7 fL (7.4-10.4); MONO % 8.5 %; NEUT % 78.4 %; PLATELET COUNT 627 K/uL (130-400); RED BLOOD COUNT 4.58 M/uL (4.7-6.1); WHITE BLOOD COUNT 9.08 K/uL (4.8-10.8)
[2017-03-14 06:14] LABS: BUN/CREATININE RATIO 23.9 (10-20); CALCIUM 8.5 mg/dl (8.5-10.1); CREATININE 0.85 mg/dl (0.60-1.40); POTASSIUM 3.6 mmol/L (3.5-5.1)
[2017-03-14 06:20] LABS: ALB/GLOB RATIO 0.8 (0.9-2)
[2017-03-14] MEDS: PANTOprazole SOD 40 MG TAB PO SCH ×2 (09:00→20:45)
[2017-03-14] MEDS ORDERED: NURSING VERBAL MED ORDER ONE (10:15)
[2017-03-14] MEDS ORDERED: NORMOSOL R 1,000 ML IV ONE (10:15)
[2017-03-14] MEDS: ASPIRIN 325 MG ECTAB PO SCH (10:25)
[2017-03-14] MEDS: ESCITALOPRAM OXALATE 10 MG TAB PO SCH (10:28)
[2017-03-14] MEDS ORDERED: NORMOSOL R 1,000 ML IV SCH (11:00)
[2017-03-14] MEDS: NORMOSOL R 1,000 ML IV SCH (11:16)
[2017-03-14] MEDS ORDERED: VANCOMYCIN TROUGH SCH (13:30)
--- NOTE | 2017-03-14 14:17 | Family Medicine Progress Note ---
Progress Note Date of Service Mar 14, 2017. Subjective Pt evaluation today including: conversation w/ patient, physical exam, chart review, lab review The patient was seen and examined at bedside. No acute overnight events. Telemetry showed sinus rhythm in the 50s and 60s. Pt reports that he is feeling better. He may be slightly dehydrated, pt states he doesn't drink enough water. No new changes in his ostomy output. Pt's CHO has completely gone away. Last fever 6pm previous evening. Afebrile overnight. Patient is resting comfortably in bed. Denies having any pain. Eating and urinating well. Plan of care was described to the patient and all questions were answered. Constitutional: No fever, No chills, No sweats Eyes: No worsening of vision Respiratory: No cough, No sputum, No wheezing, No shortness of breath Cardiovascular: No chest pain Abdomen: No pain, No vomiting, No diarrhea, No constipation Musculoskeletal: No joint pain Male : No dysuria Psychiatric: No depression symptoms Objective Physical Exam Notes: General Appearance: WD/WN, no apparent distress, + thin, appears better than yesterday, yesterday he was more somnolent than today, today he has a great affect. Neck: supple, no adenopathy, thyroid normal Respiratory/Chest: chest non-tender, lungs clear, normal breath sounds, no accessory muscle use Cardiovascular: regular rate, rhythm, no edema, no gallop, no JVD, no murmur Abdomen: normal bowel sounds, soft, + pertinent finding (pt has an ileostomy bag draining liquid brown material, abdomen is soft and non tender, no guarding , there is a herniation in the midline distal to the ileostomy.) Extremities: normal range of motion, non-tender, normal inspection, no pedal edema, no calf tenderness Neurologic/Psychiatric: pre parole counseling aide II-XII nml as tested, no motor/sensory deficits, alert, normal mood/affect, oriented x 3 Skin: no rash Assessment and Plan 66M with a PMHX of pancreatectomy and splenectomy (has has his Pneumococcal vaccine) p/w a one week history of fevers and sweats. Pt was evaluated for meningitis in the ER 2/2 his CHO. CSF findings were unremarkable and CSF cultures negative. CT Chest and Abdomen with IV and PO contrast did not show any acute pathology - several possible inflammatory sites. ID and Wound Care on board. GI was consulted on hospital Day #1. Pt has been Afebrile since 7pm on 03/13/17. Blood and urine cultures negative x 24 hours. We will continue empiric Vanc and Zosyn until cultures finalized. Pt is clinically improving. SEPSIS w likely GI source - Improving, abdomen continues to be soft, pt states that he feels better. - WBC now normal from 12,000 yesterday, Afebrile since 7pm on 03/13/2017. - LFTs elevated but downtrending - appears to be at baseline from October. - Lipase WNL. - Procalcitonin positive. - MRSA +'ve - CT Chest has no acute pathology. - CT abdo w IV and PO contrast shows "persistent linear soft tissue tracking from the midline ventral abdomen in the epigastrium to the pancreatectomy bed, containing gas. ...and potential direct injection of contrast through this fistula could be considered. ... Inflammatory changes in the region of the gastric antrum and duodenal bulb, new from prior. Gastritis or duodenitis cannot be excluded." - consider surgical referral for their input. - Urine and Blood cultures - no growth at 24 hours. - Will continue empiric treatment with Vanc and Zosyn - pt seems to be getting better. Day #2. - ID and GI on board - appreciate recs and course, would anticipate discharge on Augmenting at least until pancreatectomy/ileostomy follow up in two weeks at [facility]. - Wound care on board. Nutritional status s/p ileostomy - Pt is eating and drinking fine but has ileostomy, most water absorption occurs in the colon. - Will add on Boost Supplement (pt takes this at home) - Will start IVF Normosol at 50mls/hr. Hypertension (resolved) - Will hold beta erick due to low BP. Gastroesophageal Reflux Disease - Continue Prilosec Depression/Anxiety - Continue Zoloft - Continue Klonopin Tremors - Continue Primidone - Holding BB as above. DVT Prophylaxis - SCD Knee, UMESH Hose due to LP Disposition - Tele - OT and PT evaluations FULL CODE Resident Involvement: Resident Care Provided Care Provided: Adult Hospital Medicine
--- NOTE | 2017-03-14 14:18 | Progress Note ---
Subjective Date of Service: Mar 14, 2017. Subjective Pt evaluation today including: conversation w/ patient, conversation w/ family , physical exam, chart review, lab review pt seen in followup, at bedside. afebrile. no pain. feeling much better. all cultures negative to date. tolerating abx. wbc improved, now nml. tmax 37.[address] abd chest negative. no fluid collection. LFTs improving. Feeling much better. no abd pain, eating. no cp, cough , sob. all remaining ros reviewed and are negative. Problem List Medical Problems: (1) Asplenia Status: Acute (2) Cyst of pancreas Status: Acute (3) Fever Status: Acute (4) Fever Status: Acute (5) Intra-abdominal abscess Status: Acute (6) Lactic acidosis Status: Acute (7) Leukocytosis Status: Acute (8) Occluded PICC line Status: Acute (9) Occluded PICC line Status: Acute (10) Pancreatitis Status: Acute (11) Pancreatitis Status: Acute (12) Pancreatitis Status: Acute (13) Sepsis Status: Acute (14) SIRS (systemic inflammatory response syndrome) Status: Acute (15) Swelling of right upper extremity Status: Acute Objective Vital Signs Date Time Temp Pulse Resp B/P (MAP) Pulse Ox O2 Delivery O2 Flow Rate FiO2 03/14/17 12:43 37.5 63 18 99/61 (74) 94 2.0 03/14/17 10:07 Room Air 03/14/17 08:33 36.6 66 25 118/54 (75) 95 Nasal Cannula 2.0 03/14/17 08:00 Nasal Cannula 2.0 03/14/17 04:00 2.0 03/14/17 03:57 36.7 58 16 106/60 (75) 95 Nasal Cannula 2.0 03/14/17 00:01 Nasal Cannula 2.0 03/13/17 23:06 36.4 64 18 109/56 (73) 93 Nasal Cannula 2.0 03/13/17 20:00 Room Air 03/13/17 18:54 37.9 78 24 107/61 (76) 93 Room Air 03/13/17 17:15 82 18 122/63 (82) 98 Room Air 03/13/17 16:00 Room Air 03/13/17 14:45 37.3 72 20 91 3.0 03/13/17 14:29 37.3 72 20 96/58 (71) 91 Room Air Physical Exam General Appearance: WD/WN, no apparent distress Eyes: normal inspection, EOMI Neck: supple Respiratory/Chest: lungs clear, normal breath sounds, no respiratory distress Cardiovascular: regular rate, rhythm, no edema Abdomen: non tender, soft Extremities: non-tender, normal inspection, no pedal edema Neurologic/Psychiatric: alert, oriented x 3 Skin: normal color, warm/dry, no rash Laboratory Results Item Value Date Time Blood Culture - Preliminary Resulted 03/12/17 191 Blood NO GROWTH TO DATE. Blood Culture - Preliminary Resulted 03/12/172022 Blood NO GROWTH TO DATE. Gram Stain - Final Resulted 03/12/172032 Cerebral Spinal Fluid Urine Culture - Preliminary Resulted 03/13/17 0800 Urine , Clean Catch NO GROWTH - LESS THAN 1,000 COLONIES/... Gram Stain - Final Complete 03/12/172032 Cerebral Spinal Fluid Last 24 Hours Test 03/14/17 05:25 03/14/17 13:19 White Blood Count 9.08 K/uL Red Blood Count 4.58 M/uL Hemoglobin 13.0 g/dL Hematocrit 40.1 % Mean Corpuscular Volume 87.6 fL Mean Corpuscular Hemoglobin 28.4 pg Mean Corpuscular Hemoglobin Concent 32.4 g/dl Platelet Count 627 K/uL Mean Platelet Volume 10.7 fL Neutrophils (%) (Auto) 78.4 % Lymphocytes (%) (Auto) 9.8 % Monocytes (%) (Auto) 8.5 % Eosinophils (%) (Auto) 1.3 % Basophils (%) (Auto) 1.4 % Neutrophils # (Auto) 7.12 K/uL Lymphocytes # (Auto) 0.89 K/uL Monocytes # (Auto) 0.77 K/uL Eosinophils # (Auto) 0.12 K/uL Basophils # (Auto) 0.13 K/uL RDW Standard Deviation 58.0 fL RDW Coefficient of Variation 18.4 % Immature Granulocyte % (Auto) 0.6 % Immature Granulocyte # (Auto) 0.05 K/uL Sodium Level 141 mmol/L Potassium Level 3.6 mmol/L Chloride Level 109 mmol/L Carbon Dioxide Level 24 mmol/L Anion Gap 8.0 mmol/L Blood Urea Nitrogen 20 mg/dl Creatinine 0.85 mg/dl Est Creatinine Clear Calc Drug Dose 83.8 ml/min Estimated GFR () 106.0 Estimated GFR (Non- 91.4 BUN/Creatinine Ratio 23.9 Random Glucose 84 mg/dl Calcium Level 8.5 mg/dl Total Bilirubin 0.7 mg/dl Aspartate Amino Transf (AST/SGOT) 73 U/L Alanine Aminotransferase (ALT/SGPT) 111 U/L Alkaline Phosphatase 400 U/L Total Protein 5.4 gm/dl Albumin 2.4 gm/dl Globulin 3.0 gm/dl Albumin/Globulin Ratio 0.8 Vancomycin Level Trough 12.4 mcg/ml Assessment and Plan (1) Fever Assessment & Plan: continue IV abx for now, follow cultures. if no growth will likely transition to course po
[2017-03-14] MEDS: BOOST VANILLA PO SCH ×2 (16:45)
[2017-03-14] MEDS: PRIMIDONE 50 MG TAB PO SCH (20:45)
[2017-03-14] MEDS: CLONAZEPAM 0.5 MG TAB PO SCH (20:50)
[2017-03-14] MEDS ORDERED: ALBUT/IPRATROP 3MG/0.5MG NEB 3 ML VIAL INH ONE (21:58)
[2017-03-14] MEDS: ACETAMINOPHEN 325 MG TAB PO PRN (21:58)
[2017-03-14] MEDS ORDERED: ALBUT/IPRATROP 3MG/0.5MG NEB 3 ML VIAL INH PRN (22:00)
[2017-03-14] MEDS ORDERED: LEVALBUTEROL/IPRATROPIUM NEB INH SCH (22:00)
--- NOTE | 2017-03-14 22:28 | DIAGNOSTIC IMAGING REPORT ---
CHEST ONE VIEW PORTABLE HISTORY: sudden onset hypoxia, wheezing COMPARISON: Chest CTA 03/06/1717. Chest x-ray 03/12/2017. FINDINGS: No pneumothorax. No pleural effusions. Mild elevation the right hemidiaphragm, unchanged. The heart is top normal in size. Progressive interstitial and vascular thickening, right greater the left. This favors developing pulmonary edema. No new focal lung consolidations. IMPRESSION: Slight progression of the interstitial/vascular thickening. This favors developing pulmonary edema. Electronically signed by: Darien Hayes M.D. 03/14/2017 10:26 PM Dictated Date/Time: 03/14/2017 10:25 PM
[2017-03-14] MEDS: LEVALBUTEROL 1.25MG/0.5ML NEB INH SCH (22:57)
[2017-03-14] MEDS: IPRATROPIUM BROMIDE NEB SOLN 0.02% 2.5 ML VIAL INH SCH (22:57)
[2017-03-14] MEDS ORDERED: FUROSEMIDE 40 MG/4 ML VIAL IV STA (23:05)
[2017-03-15] VITALS (17 sets, daily range): BP systolic 136–158; BP diastolic 72–94; PULSE 62–101; TEMP 36.5–37.7; O2SAT 83–100
--- NOTE | 2017-03-15 02:18 | Progress Note ---
Progress Note Date of Service Mar 15, 2017. Progress Note I was paged earlier this evening noting that the patient was in respiratory distress. The patient was noted by nursing to be hypoxic and requiring 6 L on oxymask. I assessed the patient at the bedside. He notes feeling short of breath and wheezy. He denies coughing. He denied chest pain, palpitations or lightheadedness He denies any history of asthma or COPD. Vital signs were reviewed. The patient was noted to be tremulous and febrile ( T 38.9). BP and HR were stable Lungs were coarse at the bases with diffuse wheezing. Stat Duoneb was ordered for the patient; the patient noted some relief from this EKG did not show any acute changes CXR was remarkable for congestive changes I/Os reviewed and his balance was approximately 400 ml positive Tropinin I was checked with chame back elevated at 0.047 Plan Tylenol given to treat fever 40 mg IV Lasix was given Stat; repeat dosing per day team Xopenex/Atrovent PRN In the setting of unimpressive positive fluid balance with elevated troponin, would recommend echocardiogram in the AM Will repeat troponin with AM labs
[2017-03-15] MEDS: LEVALBUTEROL 1.25MG/0.5ML NEB INH SCH ×6 (03:11→23:12)
[2017-03-15] MEDS: IPRATROPIUM BROMIDE NEB SOLN 0.02% 2.5 ML VIAL INH SCH ×6 (03:11→23:11)
--- NOTE | 2017-03-15 03:13 | GASTROINTESTINAL CONSULTATION ---
DATE OF CONSULTATION: 03/14/2017 CHIEF COMPLAINT: History of recurrent pancreatitis status post resection with fever of unknown origin. HISTORY OF PRESENT ILLNESS: Mr. Schwarz is a 66-year-old white male known to me from several previous [facility] hospitalizations for which he had a recurrent acute pancreatitis superimposed on chronic pancreatitis. After several attempts at drainage and assessment of this area, the patient ultimately chose to go to the [facility] for resection and this was performed. There was no evidence of malignancy in this and the surgery was performed in October 2016. Since his hospitalization and discharge, the patient has had continued followup at [facility] and overall has been doing well except for 2 fistulas currently in the abdominal wall, a period of time after the surgery. According to the patient, studies via the fistula suggest that there is one area goes towards the small bowel and one towards the colon and the patient does report at times that one drains stool and the other drains a yellow liquid. However, he feels that the size of these had been decreasing and the intention is that there may be consideration to take down these fistulae in April, if they do not spontaneously close. The patient was in her usual state of health and actually been gaining weight orally without the need for other IV support for nutrition, but developed fever. He has had a couple fever events since the surgery and were transferred down at [facility]. The patient presented to the hospital on March 12 with temperature of 103.1. The patient does not report any specific localizing symptoms by way of cough, sputum production, abdominal pain or urinary symptoms. He did report that during the fever, he had a severe headache. In the Emergency Room, the patient was started on broad spectrum antibiotics and underwent burroughs culture, a lumbar puncture was also performed that was unremarkable. The patient did have a splenectomy as part of his distal pancreatectomy. PAST MEDICAL HISTORY: Includes hypertension, melanoma, pancreatitis with surgical resection, back surgery history, colon resection, splenic artery aneurysm, distal pancreatectomy and history of abdominal wall fistula. FAMILY HISTORY: Significant for gallbladder disease, coronary artery disease, hypertension and cancer. SOCIAL HISTORY: The patient has never smoked. Does not use alcoholic beverages. He is and lives with his spouse in [place]. ALLERGIES: No known drug allergies. HOME MEDICATIONS: Include aspirin, clonazepam, Lexapro, omeprazole, primidone and propranolol. REVIEW OF SYSTEMS: Otherwise noncontributory based on 13-point exam except for mentioned above. The patient denies any diarrhea, constipation or rectal bleeding. PHYSICAL EXAMINATION: VITAL SIGNS: Today shows a well-developed male in no acute distress. On admission, the patient was febrile at 38.1, blood pressure 166/88, respirations 22, heart rate 55, 94% on room air. GENERAL: The patient is awake, alert and oriented x3, resting comfortably in bed. Oral mucosa moist. HEENT: Sclerae are anicteric, conjunctiva moist. HEART: Normal S1, S2. LUNGS: Clear to auscultation without rales, rhonchi or wheezes. ABDOMEN: Soft, nontender, nondistended with normal active bowel sounds. There is a stoma appliance over the areas of fistula that both drain into the same appliance, the yellow-colored liquid stool as well as solid stool. EXTREMITIES: Without clubbing, cyanosis or edema. Normal range of motion in extremities. RECTAL: Deferred. LABORATORY STUDIES: On admission, the patient was tested negative for influenza type A and B and had a baseline white count of 12.1, hemoglobin 14.3, platelets 814,000. INR 1.1, BUN and creatinine are 17 and 0.7 and potassium 3.6. AST is elevated at 111, ALT of 160, alkaline phosphatase 578, total protein 7.1, albumin 3.2, and lipase 165. IMAGING DATA: Chest x-ray is interpreted as normal. An abdominal CT on March 13, identified the absence of intra or extrahepatic ductal dilatation, gallbladder is surgically absent. The lungs, bases show minimal atelectasis with normal heart size. There are aortic calcifications. Liver is heterogeneous. The spleen is surgically absent. Prior surgical drain had been removed. There is soft tissue tracking linearly from the midline epigastrium and the ventral abdominal wall towards the distal pancreatectomy site which contained a few foci of gas may represent a fistula. The entero-enteric anastomosis of the site cannot be identified. There is a colocolonic anastomosis in the right upper rectal region. No evidence for bowel obstruction. There is some fat stranding around the gastric antrum and duodenal bulb. There are no significant pathological appearing lymph nodes and noted was the near complete resolution of the fluid collection in the splenectomy bed. LABORATORY STUDIES: Today showed a white count is down to 9.0 with a hemoglobin of 13. MCV 87, platelets are 627,000. Serum chemistries today: BUN and creatinine are 20 and 0.8, potassium 3.6; total bilirubin 0.7. Again, transaminases are elevated with an alkaline phosphatase of 400, although this number is coming down as well as the transaminases. Lipase was canceled. CSF, that was only 3 white blood cells. Urinalysis does not demonstrate a clear urinary tract infection and white blood cells are 1-5. IMPRESSION: Mr. Schwarz is known to me from several inpatient and outpatient evaluations for this chronic and acute pancreatitis, for which he underwent a distal pancreatectomy and splenectomy. He recently developed a fever over 103. The etiology is unclear as there is no pneumonic process. At the present time, the patient is doing better and would continue the current regimen of antibiotics, which include vancomycin IV and Zosyn. His other medications include ipratropium, Combivent, clonazepam, primidone. He has no known drug allergies. Would continue current course of therapy as the patient appears to be doing better than on admission per pt and notes. If the patient does show another fever, then it would be reasonable to burroughs culture, assess the urinalysis for any evidence of UTI. At some point, the patient will need to address the fistula present at [facility]. We will continue to follow with you. All questions answered. SANDRA
[2017-03-15] MEDS: PIPERACILL/TAZOBAC IV 3.375 GM in DEXTROSE 5% 100ML 100 ML IV SCH ×3 (04:00→20:29)
[2017-03-15 06:33] LABS: HEMATOCRIT 41.3 % (42-52); MEAN CELL VOLUME 86.2 fL (80-100); MEAN CORPUSCULAR HEMOGLOBIN 29.2 pg (25-34); MEAN CORPUSCULAR HGB CONC 33.9 g/dl (32-36); MEAN PLATELET VOLUME 11.1 fL (7.4-10.4); PLATELET COUNT 668 K/uL (130-400); RED BLOOD COUNT 4.79 M/uL (4.7-6.1); WHITE BLOOD COUNT 16.79 K/uL (4.8-10.8)
[2017-03-15 06:39] LABS: COMPLETE YES; EOSINOPHIL % 1.7 %; LYMPH ABS # 1.02 K/uL (1.2-3.4); LYMPHOCYTE % 6.1 %; MYELOCYTE % 0.9 %; NEUTROPHILS % 65.2 %; TARGET CELLS 2+; VACUOLIZATION 1+; VARIANT LYM ABS # 3.07 K/uL; VARIANT LYMPHOCYTE % 18.3 %
[2017-03-15] MEDS: NORMOSOL R 1,000 ML IV SCH (06:41)
[2017-03-15 07:05] LABS: ALB/GLOB RATIO 0.8 (0.9-2); BUN/CREATININE RATIO 14.5 (10-20); CALCIUM 8.9 mg/dl (8.5-10.1); CREATININE 0.82 mg/dl (0.60-1.40); POTASSIUM 2.9 mmol/L (3.5-5.1)
[2017-03-15] MEDS: BOOST VANILLA PO SCH ×4 (07:39→16:40)
[2017-03-15] MEDS ORDERED: ALBUT/IPRATROP 3MG/0.5MG NEB 3 ML VIAL INH SCH (08:00)
--- NOTE | 2017-03-15 08:13 | Pharmacy Progress Note ---
Pharmacy Abx Dose Short Note Date of Service Mar 15, 2017. Assessment & Plan Assessment * 66 year old male receiving IV Vancomycin/Zosyn for treatment of fever/?sepsis * Day #4 of antimicrobial therapy. * Patient remains febrile, WBC 9-->16.8 since yesterday, all cultures negative to date, patient has history of MRSA * Per all provider notes, continue current IV abx * Vanc trough level obtained yesterday: 12.4mcg/mL Plan Vancomycin * Trough level of 12.4 mcg/mL is subtherapeutic * Change to Vancomycin 1250 mg IV every 10 hours * Goal trough level for ?sepsis : 15 to 20 mcg/mL * Trough level ordered for: tomorrow prior to the dose due at 0600 Pharmacy will continue to follow and will adjust dose/frequency as necessary. Thank you.
[2017-03-15] MEDS: ESCITALOPRAM OXALATE 10 MG TAB PO SCH (08:19)
[2017-03-15] MEDS: ASPIRIN 325 MG ECTAB PO SCH (08:19)
[2017-03-15] MEDS: PANTOprazole SOD 40 MG TAB PO SCH ×2 (08:19→20:29)
[2017-03-15] MEDS: POTASSIUM CHLR 10 MEQ / WTR 10 MEQ in PREMIXED WATER 100 ML IV SCH ×4 (08:20→14:36)
--- NOTE | 2017-03-15 08:50 | Clinical Documentation Query ---
CLINICAL DOCUMENTATION QUERY 66 year old male with a significant history of chronic pancreatitis, splenectomy, partial pancreatectomy who presents to the Emergency Room with complaints of fever. At approx 2200 03/14 patient had episode of respiratory distress. Query #1/2 In your clinical opinion is this patient being managed for: ( x ) Acute hypoxic respiratory failure in setting of sepsis treated with O2 via mask, IV Lasix, and nebs., ( ) Not Agree ( ) Other explanation of clinical findings (Please Explain) ( ) Unable to determine (Please Define) ( ) Need to Discuss The medical record reflects the following clinical findings, treatment, and risk factors. Clinical Indicators: As above. VS showed 38.9 97 26 181/105 87% 6L NC. Nursing notes, "Patient started with expiratory wheezing and a dry cough, bilateral lungs were diminished, pulse ox was 78% on RA, placed NC on at 4L. . . 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 Clinical Indicators: As above. VS showed 38.9 97 26 181/105 87% 6L NC. Nursing notes, "Patient started with expiratory wheezing and a dry cough, bilateral lungs were diminished, pulse ox was 78% on RA, placed NC on at 4L. . . 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 Terms such as "probable", "suspected", "likely", "questionable", "possible", or "still to be ruled out" are acceptable. IF IN AGREEMENT, YOU MUST DOCUMENT ABOVE DIAGNOSTIC STATEMENT IN DAILY PROGRESS NOTES AND DISCHARGE SUMMARY. This document is not part of the patient's record. Thank You, Louie French, RN [phone]
--- NOTE | 2017-03-15 10:25 | Progress Note ---
Subjective Date of Service: Mar 15, 2017. Subjective Pt evaluation today including: conversation w/ patient, physical exam, chart review, lab review had isolated fever yesterday, along with sob and wheeze. cxr showed edema. he was given lasix IV with significant diuresis and resolution of symptoms. no fevers since. cultures remain negative. feeling much better today. denies cp, sob, n/v/d/abd pain on my exam today. no chills. no increased drainage from fistula. All remaining ros reviewed and are negative. Problem List Medical Problems: (1) Asplenia Status: Acute (2) Cyst of pancreas Status: Acute (3) Fever Status: Acute (4) Fever Status: Acute (5) Intra-abdominal abscess Status: Acute (6) Lactic acidosis Status: Acute (7) Leukocytosis Status: Acute (8) Occluded PICC line Status: Acute (9) Occluded PICC line Status: Acute (10) Pancreatitis Status: Acute (11) Pancreatitis Status: Acute (12) Pancreatitis Status: Acute (13) Sepsis Status: Acute (14) SIRS (systemic inflammatory response syndrome) Status: Acute (15) Swelling of right upper extremity Status: Acute Objective Vital Signs Date Time Temp Pulse Resp B/P (MAP) Pulse Ox O2 Delivery O2 Flow Rate FiO2 03/15/17 07:24 37.3 87 19 145/94 (111) 96 Mask 7.0 03/15/17 07:16 73 18 96 Mask 7.5 03/15/17 04:00 Oxymask 7.0 03/15/17 03:45 37.5 88 20 145/81 (102) 97 Oxymask 6.0 03/15/17 03:11 70 18 96 Mask 7.5 03/15/17 00:01 Oxymask 7.0 03/14/17 23:30 37.6 89 20 136/72 (93) 95 Oxymask 6.0 03/14/17 22:57 94 18 95 Mask 7.0 03/14/17 22:29 93 26 94 Mask 7.0 03/14/17 21:59 97 24 181/105 (130) 03/14/17 21:52 38.9 03/14/17 21:28 37.0 92 20 176/106 (129) 87 Nasal Cannula 6.0 03/14/17 20:24 37.5 71 24 169/93 (118) 91 Room Air 03/14/17 20:00 96 Room Air 03/14/17 16:39 36.8 60 18 135/80 (98) 94 03/14/17 16:11 37.0 60 18 135/80 (98) 96 Room Air 03/14/17 16:00 96 Room Air 03/14/17 15:36 Room Air 03/14/17 12:43 37.5 63 18 99/61 (74) 94 2.0 03/14/17 12:30 Nasal Cannula 2.0 Physical Exam General Appearance: WD/WN, no apparent distress Eyes: normal inspection, EOMI Neck: supple Respiratory/Chest: lungs clear, normal breath sounds, no respiratory distress Cardiovascular: regular rate, rhythm, no edema Abdomen: non tender, soft Extremities: non-tender, normal inspection, no pedal edema Neurologic/Psychiatric: alert, oriented x 3 Skin: normal color, warm/dry, no rash Laboratory Results Item Value Date Time Urine Culture - Preliminary Resulted 03/13/17 0800 Urine , Clean Catch NO GROWTH - LESS THAN 1,000 COLONIES/... Gram Stain - Final Complete 03/12/172032 Cerebral Spinal Fluid Blood Culture - Preliminary Resulted 03/12/172022 Blood NO GROWTH TO DATE. Blood Culture - Preliminary Resulted 03/12/17 1918 Blood NO GROWTH TO DATE. Last 24 Hours Test 03/14/17 13:19 03/15/17 01:00 03/15/17 05:53 Vancomycin Level Trough 12.4 mcg/ml Troponin I 0.047 ng/ml 0.035 ng/ml White Blood Count 16.79 K/uL Red Blood Count 4.79 M/uL Hemoglobin 14.0 g/dL Hematocrit 41.3 % Mean Corpuscular Volume 86.2 fL Mean Corpuscular Hemoglobin 29.2 pg Mean Corpuscular Hemoglobin Concent 33.9 g/dl Platelet Count 668 K/uL Mean Platelet Volume 11.1 fL RDW Standard Deviation 55.7 fL RDW Coefficient of Variation 17.9 % Neutrophils % (Manual) 65.2 % Lymphocytes % (Manual) 6.1 % Variant Lymphocytes % (manual) 18.3 % Monocytes % (Manual) 7.8 % Eosinophils % (Manual) 1.7 % Myelocytes % 0.9 % Neutrophils # (Manual) 10.95 K/uL Total Absolute Neutrophils 10.95 K/uL Lymphocytes # (Manual) 1.02 K/uL Absolute Variant Lymphocytes 3.07 K/uL Total Absolute Lymphocytes 4.10 K/uL Monocytes # (Manual) 1.31 K/uL Eosinophils # (Manual) 0.29 K/uL Myelocytes # 0.15 K/uL Toxic Vacuolation 1+ Target Cells 2+ Sodium Level 139 mmol/L Potassium Level 2.9 mmol/L Chloride Level 101 mmol/L Carbon Dioxide Level 30 mmol/L Anion Gap 8.0 mmol/L Blood Urea Nitrogen 12 mg/dl Creatinine 0.82 mg/dl Est Creatinine Clear Calc Drug Dose 86.9 ml/min Estimated GFR () 107.6 Estimated GFR (Non- 92.8 BUN/Creatinine Ratio 14.5 Random Glucose 101 mg/dl Calcium Level 8.9 mg/dl Total Bilirubin 0.5 mg/dl Aspartate Amino Transf (AST/SGOT) 56 U/L Alanine Aminotransferase (ALT/SGPT) 100 U/L Alkaline Phosphatase 462 U/L Total Protein 6.4 gm/dl Albumin 2.8 gm/dl Globulin 3.6 gm/dl Albumin/Globulin Ratio 0.8 Assessment and Plan (1) Fever Assessment & Plan: continue abx for now, no + cultures. would repeat blood culture if additional episodes of fever. If no + micro would suggest on po augmentin x 7-10 days pending his f/u at [facility] in upcoming days.
[2017-03-15] MEDS: VANCOMYCIN INJ 1,250 MG in SODIUM CHLORIDE 0.9% 250ML 250 ML IV SCH ×2 (10:27→20:29)
[2017-03-15] MEDS ORDERED: FUROSEMIDE 20 MG TAB PO ONE (10:30)
[2017-03-15] MEDS: ACETAMINOPHEN 325 MG TAB PO PRN (11:23)
--- NOTE | 2017-03-15 16:46 | Family Medicine Progress Note ---
Progress Note Date of Service Mar 15, 2017. Subjective Pt evaluation today including: conversation w/ patient, physical exam, chart review, lab review The patient was seen and examined at bedside. Pt had a moderately elevated temp overnight and dyspnea and into the morning to 37.7C. EKG was done and normal. Pt had mildly elevated trops. He denies any chest pain. No significant cardiac history aside from a PMHx of smoking. Pt had IVF infusing and says he always gets dyspneic with IVF infusing. Yesterday Dr. Rinaldi reported crackling in the lungs, likely the patient was fluid overloaded. Pt got IV Lasix and improved. Tele showed sinus rhythm at 88. Plan of care was described to the patient and all questions were answered. Eyes: No worsening of vision Respiratory: No cough, No sputum, No wheezing, + SOB overnight, resolved now. Cardiovascular: No chest pain Abdomen: No pain, No vomiting, No diarrhea, No constipation Musculoskeletal: No joint pain Male : No dysuria Psychiatric: No depression symptoms Objective Physical Exam Notes: General Appearance: WD/WN, no apparent distress, + thin, appears at baseline same as yesterday. Neck: supple, no adenopathy, thyroid normal Respiratory/Chest: chest non-tender, lungs clear, normal breath sounds, no accessory muscle use Cardiovascular: regular rate, rhythm, no edema, no gallop, no JVD, no murmur Abdomen: normal bowel sounds, soft, + pertinent finding (pt has an ileostomy bag draining liquid brown material, abdomen is soft and non tender, no guarding , there is a herniation in the midline distal to the ileostomy. 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 Pt was evaluated for meningitis in the ER 2/2 his CHO. CSF findings were unremarkable and CSF cultures negative. CT Chest and Abdomen with IV and PO contrast did not show any acute pathology - several possible inflammatory sites. ID and Wound Care on board. GI was consulted on hospital Day #1. Blood and urine cultures negative. Pt is on empiric Vanc and Zosyn until cultures finalized. Pt had a SOB episode probably due to fluid overload on night of 03/14/17 - was put on oxygen and then weaned. Pt also had new fevers into the AM of 03/15 -> in light of broad spectrum Abx this may be from propranolol withdrawal, we will restart today. SEPSIS w likely GI source - Improving, abdomen continues to be soft, pt states that he feels better. - WBC re-elevated to 16,000, temps increased, unknown cause. - LFTs elevated but downtrending - appears to be at baseline from October. - Lipase WNL. - Procalcitonin positive. - MRSA +'ve - CT Chest has no acute pathology. - CT abdo w IV and PO contrast shows "persistent linear soft tissue tracking from the midline ventral abdomen in the epigastrium to the pancreatectomy bed, containing gas. ...and potential direct injection of contrast through this fistula could be considered. ... Inflammatory changes in the region of the gastric antrum and duodenal bulb, new from prior. Gastritis or duodenitis cannot be excluded." - consider surgical referral for their input. - Urine and Blood cultures - no growth - Will continue empiric treatment with Vanc and Zosyn - pt seems to be getting better. Day #3. Likely DC on Augmentin. - ID and GI on board. - Wound care on board. Nutritional status s/p ileostomy - Pt is eating and drinking fine but has ileostomy, most water absorption occurs in the colon. - Will add on Boost Supplement (pt takes this at home) - DC IVF Hypertension - Restarting Propranolol 60mg daily. Gastroesophageal Reflux Disease - Continue Prilosec Depression/Anxiety - Continue Zoloft - Continue Klonopin Tremors - Continue Primidone - BB as above. DVT Prophylaxis - HepSQ 5000IU BID daily. Disposition - Tele - OT and PT on Board. - Home, independent, declined home services, back on room air. FULL CODE Resident Involvement: Resident Care Provided Care Provided: Adult Hospital Medicine
[2017-03-15] MEDS: PROPRANOLOL HCL 20 MG TAB PO SCH (17:38)
--- NOTE | 2017-03-15 18:01 | PROGRESS NOTE ---
DATE: 03/15/2017 The patient is doing well on IV vancomycin and Zosyn. He remains afebrile. 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 These developed a month after his distal pancreatectomy and splenectomy at [facility] in August and fistulas began to develop a month later in September. At that time he was 119 pounds and now weighs 154. They wanted to delay surgery until he was better able to tolerate it. Prior to the surgery the doctors at the [facility] wanted to have a small bowel x-ray and barium enema performed. Small bowel x-ray was performed at [place] and according to the patient, did not show any abnormalities. He is scheduled to have a barium enema done at [facility] prior to his fistula repair. He has had 3 infections since his original surgery. 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 Currently, he is doing well and hopefully will be able to complete his antibiotic course and get down to the [facility] to get his barium enema and fistula repair surgery in the near future. Dr. Sridhar Love from [facility] will be covering for us over the weekend.
[2017-03-15] MEDS: HEPARIN SOD 5000 UNIT/0.5 ML CARP SQ SCH (20:34)
[2017-03-15] MEDS: CLONAZEPAM 0.5 MG TAB PO SCH (20:35)
[2017-03-16] VITALS (14 sets, daily range): BP systolic 137–169; BP diastolic 77–79; PULSE 52–62; TEMP 36–37.2; O2SAT 90–98
[2017-03-16] MEDS: LEVALBUTEROL 1.25MG/0.5ML NEB INH SCH ×6 (03:33→23:12)
[2017-03-16] MEDS: IPRATROPIUM BROMIDE NEB SOLN 0.02% 2.5 ML VIAL INH SCH ×6 (03:33→23:12)
[2017-03-16] MEDS: PIPERACILL/TAZOBAC IV 3.375 GM in DEXTROSE 5% 100ML 100 ML IV SCH ×2 (04:30→11:47)
[2017-03-16] MEDS ORDERED: VANCOMYCIN TROUGH SCH (05:30)
[2017-03-16 06:29] LABS: HEMATOCRIT 38.6 % (42-52); MEAN CELL VOLUME 85.4 fL (80-100); MEAN CORPUSCULAR HEMOGLOBIN 28.5 pg (25-34); MEAN CORPUSCULAR HGB CONC 33.4 g/dl (32-36); PLATELET COUNT 656 K/uL (130-400); RED BLOOD COUNT 4.52 M/uL (4.7-6.1)
[2017-03-16] MEDS: VANCOMYCIN INJ 1,250 MG in SODIUM CHLORIDE 0.9% 250ML 250 ML IV SCH (06:36)
[2017-03-16 06:57] LABS: BUN/CREATININE RATIO 17.2 (10-20); CALCIUM 8.9 mg/dl (8.5-10.1); CREATININE 0.74 mg/dl (0.60-1.40); POTASSIUM 3.3 mmol/L (3.5-5.1)
[2017-03-16 07:00] LABS: ALB/GLOB RATIO 0.8 (0.9-2)
[2017-03-16 07:32] LABS: ANISOCYTOSIS PRESENT; COMPLETE YES; EOSINOPHIL % 3.5 %; HOWELL-JOLLY BODIES 1+; LARGE GRANULAR LYMPHOCYTE % 19.3 %; LYMPH ABS # 3.17 K/uL (1.2-3.4); LYMPHOCYTE % 21.1 %; MYELOCYTE % 0.9 %; NEUTROPHILS % 50.8 %; TARGET CELLS 1+; VARIANT LYM ABS # 0.27 K/uL; VARIANT LYMPHOCYTE % 1.8 %
[2017-03-16] MEDS: BOOST VANILLA PO SCH ×4 (08:01→16:36)
[2017-03-16] MEDS: ASPIRIN 325 MG ECTAB PO SCH (08:01)
[2017-03-16] MEDS: PANTOprazole SOD 40 MG TAB PO SCH ×2 (08:01→21:33)
[2017-03-16] MEDS: PROPRANOLOL HCL 20 MG TAB PO SCH (08:02)
[2017-03-16] MEDS: ESCITALOPRAM OXALATE 10 MG TAB PO SCH (08:02)
[2017-03-16] MEDS: HEPARIN SOD 5000 UNIT/0.5 ML CARP SQ SCH ×2 (08:33→21:35)
[2017-03-16] MEDS: POTASSIUM CHLR 10 MEQ / WTR 10 MEQ in PREMIXED WATER 100 ML IV SCH ×2 (10:42→13:22)
[2017-03-16] MEDS ORDERED: FUROSEMIDE INJ 20 MG in SYRINGE 0 ML IV ONE (12:45)
[2017-03-16] MEDS ORDERED: NURSING VERBAL MED ORDER ONE (13:00)
[2017-03-16] MEDS ORDERED: POTASSIUM CHLORIDE 20 MEQ TABCR PO ONE (13:00)
--- NOTE | 2017-03-16 13:16 | Gastroenterology Progress Note ---
Progress Note Date of Service: Mar 16, 2017 Subjective Pt evaluation today including: conversation w/ patient, physical exam, chart review, lab review, review of studies Review of Systems Constitutional: + weakness Abdomen: + problem reported (draining fistula, small opening of few mm) Musculoskeletal: + problem reported (shaky) Medications Current Inpatient Medications Medications (Trade) Dose Ordered Sig/Pio Route Start Time Stop Time Status Last Admin Dose Admin Acetaminophen (Tylenol Tab) 650 mg Q4H PRN PO 03/12/17 23:15 04/11/17 23:14 03/15/17 11:23 650 MG Al Hydrox/Mg Hydrox/Simethicone (Maalox Max Susp) 15 ml Q4H PRN PO 03/12/17 23:15 04/11/17 23:14 Magnesium Hydroxide (Milk Of Magnesia Susp) 30 ml Q6H PRN PO 03/12/17 23:15 04/11/17 23:14 Polyethylene (Miralax Powder Packet) 17 gm DAILY PRN PO 03/12/17 23:15 04/11/17 23:14 Ondansetron HCl (Zofran Inj) 4 mg Q6H PRN IV 03/12/17 23:15 04/11/17 23:14 Aspirin (Ecotrin Tab) 325 mg DAILY PO 03/13/17 08:00 04/12/17 08:59 03/16/17 08:01 325 MG Clonazepam (Klonopin Tab) 0.5 mg DAILY@2130 PO 03/13/17 21:30 04/12/17 21:29 03/15/17 20:35 0.5 MG Escitalopram Oxalate (Lexapro Tab) 10 mg DAILY PO 03/13/17 08:00 04/12/17 08:59 03/16/17 08:02 10 MG Pantoprazole Sodium (Protonix Tab) 40 mg BID PO 03/13/17 08:00 04/12/17 08:59 03/16/17 08:01 40 MG Ioversol (Optiray 320) 100 ml UD PRN IV 03/13/17 13:00 03/17/17 12:59 Enteral Nutritional Formula (Boost) 1 can BIDM PO 03/14/17 16:45 04/13/17 16:44 03/16/17 08:01 1 CAN Albuterol/ Ipratropium (Duoneb) 3 ml Q2H PRN INH 03/14/17 22:00 04/13/17 21:59 Ipratropium [place] (Atrovent 0.02% 0.5MG/2.5ML Neb) 0.5 mg Q4R INH 03/15/17 00:00 04/14/17 00:00 03/16/17 11:24 0.5 MG Levalbuterol (Xopenex 1.25MG/ 0.5ML Neb) 1.25 mg Q4R INH 03/15/17 00:00 04/14/17 00:00 03/16/17 11:24 1.25 MG Propranolol HCl (Inderal Tab) 60 mg DAILY PO 03/15/17 16:30 04/14/17 16:29 03/16/17 08:02 60 MG Heparin Sodium (Porcine) (Heparin Sq 5000 Unit/0.5ml) 5,000 unit Q12 SQ 03/15/17 21:00 04/14/17 20:59 03/16/17 08:33 5,000 UNIT Amoxicillin/ Clavulanate Potassium (Augmentin Tab) 875 mg BIDM PO 03/16/17 16:45 03/26/17 16:44 Objective Vital Signs Date Time Temp Pulse Resp B/P (MAP) Pulse Ox O2 Delivery O2 Flow Rate FiO2 03/16/17 12:35 36.9 52 23 146/79 (101) 94 Room Air 03/16/17 12:00 95 Room Air 03/16/17 11:24 52 16 93 Room Air 03/16/17 08:36 36.0 58 22 169/ (56) 98 Room Air 03/16/17 08:00 93 Room Air 03/16/17 07:02 60 14 95 Nasal Cannula 3.0 03/16/17 04:26 37.0 62 18 151/79 (103) 94 Room Air 03/16/17 04:00 Room Air 03/16/17 03:33 60 17 94 Nasal Cannula 3.0 03/16/17 00:00 Room Air 03/15/17 23:13 37.4 62 15 150/81 (104) 83 Room Air 03/15/17 23:12 63 20 92 Nasal Cannula 3.0 03/15/17 20:00 Room Air 03/15/17 19:00 64 18 91 Room Air 03/15/17 18:58 36.5 63 16 140/72 (94) 91 Room Air 03/15/17 17:47 101 142/92 (109) 03/15/17 16:00 95 Room Air 03/15/17 15:35 75 18 92 Room Air 03/15/17 15:19 36.8 70 18 136/79 (98) 93 Room Air Physical Exam General Appearance: no apparent distress Eyes: normal inspection Abdomen: non tender, soft (small fistula with a stomal bag) Laboratory Results Last 24 Hours Test 03/16/17 06:03 White Blood Count 15.00 K/uL Red Blood Count 4.52 M/uL Hemoglobin 12.9 g/dL Hematocrit 38.6 % Mean Corpuscular Volume 85.4 fL Mean Corpuscular Hemoglobin 28.5 pg Mean Corpuscular Hemoglobin Concent 33.4 g/dl Platelet Count 656 K/uL Mean Platelet Volume 11.0 fL RDW Standard Deviation 54.3 fL RDW Coefficient of Variation 17.7 % Neutrophils % (Manual) 50.8 % Lymphocytes % (Manual) 21.1 % Variant Lymphocytes % (manual) 1.8 % Monocytes % (Manual) 2.6 % Eosinophils % (Manual) 3.5 % Myelocytes % 0.9 % Neutrophils # (Manual) 7.62 K/uL Total Absolute Neutrophils 7.62 K/uL Lymphocytes # (Manual) 3.17 K/uL Absolute Variant Lymphocytes 0.27 K/uL Total Absolute Lymphocytes 6.33 K/uL Monocytes # (Manual) 0.39 K/uL Eosinophils # (Manual) 0.53 K/uL Myelocytes # 0.14 K/uL Percent Large Granular Lymphocytes 19.3 % Absolute Large Granular Lymphocytes 2.90 K/uL Anisocytosis PRESENT Target Cells 1+ Calvo-Sims Bodies 1+ Sodium Level 140 mmol/L Potassium Level 3.3 mmol/L Chloride Level 104 mmol/L Carbon Dioxide Level 28 mmol/L Anion Gap 8.0 mmol/L Blood Urea Nitrogen 13 mg/dl Creatinine 0.74 mg/dl Est Creatinine Clear Calc Drug Dose 96.3 ml/min Estimated GFR () 112.2 Estimated GFR (Non- 96.8 BUN/Creatinine Ratio 17.2 Random Glucose 92 mg/dl Calcium Level 8.9 mg/dl Magnesium Level 2.0 mg/dl Total Bilirubin 0.4 mg/dl Aspartate Amino Transf (AST/SGOT) 49 U/L Alanine Aminotransferase (ALT/SGPT) 86 U/L Alkaline Phosphatase 412 U/L Total Protein 6.2 gm/dl Albumin 2.7 gm/dl Globulin 3.5 gm/dl Albumin/Globulin Ratio 0.8 Vancomycin Level Trough 15.5 mcg/ml Assessment and Plan Imp: Post operative fistula Recommend endoscopic attempt to close this before considering surgery. Pt will discuss plan with surgeon The non localization of a tract on enterogram suggest a small and possibly longer tract, easier to fix endoscopically. Another temporizing option is to place a smallest g tube via the fistula, will plug the tract and potentially used for nutrition also. This should follow a fistulogram and wire placement under fluro guidance in the endoscopy room. His infection, likely line related is getting better I had seen him at [facility] before. He thought the [facility] surgeons were moving slow and hence went to [facility]. Will be happy to collaborate with the [facility] surgeons for endoscopic work if needed
[2017-03-16 15:33] LABS: LYME DNA PCR CSF OR SYNOVIAL Not detected (Not Detected); LYME DNA SOURCE CSF
--- NOTE | 2017-03-16 16:29 | Family Medicine Progress Note ---
Progress Note Date of Service Mar 16, 2017. Subjective Pt evaluation today including: conversation w/ patient, physical exam, chart review, conversation w/ government operations consultant, review of inpatient medication list Pain: none PO Intake: none Voiding: no voiding problems Patient feeling well today and without any complaints Constitutional: No fever, No chills, No sweats Respiratory: No cough, No sputum, No shortness of breath Cardiovascular: No chest pain, No edema, No palpitations Abdomen: No pain, No nausea, No vomiting, No diarrhea Male : No dysuria, No urinary frequency Heme: No abnormal bleeding/bruising, No clotting problems Skin: No rash, No itch, No new/changing skin lesions Medications Current Inpatient Medications Medications (Trade) Dose Ordered Sig/Pio Route Start Time Stop Time Status Last Admin Dose Admin Acetaminophen (Tylenol Tab) 650 mg Q4H PRN PO 03/12/17 23:15 04/11/17 23:14 03/15/17 11:23 650 MG Al Hydrox/Mg Hydrox/Simethicone (Maalox Max Susp) 15 ml Q4H PRN PO 03/12/17 23:15 04/11/17 23:14 Magnesium Hydroxide (Milk Of Magnesia Susp) 30 ml Q6H PRN PO 03/12/17 23:15 04/11/17 23:14 Polyethylene (Miralax Powder Packet) 17 gm DAILY PRN PO 03/12/17 23:15 04/11/17 23:14 Ondansetron HCl (Zofran Inj) 4 mg Q6H PRN IV 03/12/17 23:15 04/11/17 23:14 Aspirin (Ecotrin Tab) 325 mg DAILY PO 03/13/17 08:00 04/12/17 08:59 03/16/17 08:01 325 MG Clonazepam (Klonopin Tab) 0.5 mg DAILY@2130 PO 03/13/17 21:30 04/12/17 21:29 03/15/17 20:35 0.5 MG Escitalopram Oxalate (Lexapro Tab) 10 mg DAILY PO 03/13/17 08:00 04/12/17 08:59 03/16/17 08:02 10 MG Pantoprazole Sodium (Protonix Tab) 40 mg BID PO 03/13/17 08:00 04/12/17 08:59 03/16/17 08:01 40 MG Ioversol (Optiray 320) 100 ml UD PRN IV 03/13/17 13:00 03/17/17 12:59 Enteral Nutritional Formula (Boost) 1 can BIDM PO 03/14/17 16:45 04/13/17 16:44 03/16/17 08:01 1 CAN Albuterol/ Ipratropium (Duoneb) 3 ml Q2H PRN INH 03/14/17 22:00 04/13/17 21:59 Ipratropium [place] (Atrovent 0.02% 0.5MG/2.5ML Neb) 0.5 mg Q4R INH 03/15/17 00:00 04/14/17 00:00 03/16/17 15:18 0.5 MG Levalbuterol (Xopenex 1.25MG/ 0.5ML Neb) 1.25 mg Q4R INH 03/15/17 00:00 04/14/17 00:00 03/16/17 15:18 1.25 MG Propranolol HCl (Inderal Tab) 60 mg DAILY PO 03/15/17 16:30 04/14/17 16:29 03/16/17 08:02 60 MG Heparin Sodium (Porcine) (Heparin Sq 5000 Unit/0.5ml) 5,000 unit Q12 SQ 03/15/17 21:00 04/14/17 20:59 03/16/17 08:33 5,000 UNIT Amoxicillin/ Clavulanate Potassium (Augmentin Tab) 875 mg BIDM PO 03/16/17 16:45 03/26/17 16:44 Objective Vital Signs Date Time Temp Pulse Resp B/P (MAP) Pulse Ox O2 Delivery O2 Flow Rate FiO2 03/16/17 15:30 37.2 55 18 154/78 (103) 97 Room Air 03/16/17 15:19 56 16 96 Room Air 03/16/17 12:35 36.9 52 23 146/79 (101) 94 Room Air 03/16/17 12:00 95 Room Air 03/16/17 11:24 52 16 93 Room Air 03/16/17 08:36 36.0 58 22 169/ (56) 98 Room Air 03/16/17 08:00 93 Room Air 03/16/17 07:02 60 14 95 Nasal Cannula 3.0 03/16/17 04:26 37.0 62 18 151/79 (103) 94 Room Air 03/16/17 04:00 Room Air 03/16/17 03:33 60 17 94 Nasal Cannula 3.0 03/16/17 00:00 Room Air 03/15/17 23:13 37.4 62 15 150/81 (104) 83 Room Air 03/15/17 23:12 63 20 92 Nasal Cannula 3.0 03/15/17 20:00 Room Air 03/15/17 19:00 64 18 91 Room Air 03/15/17 18:58 36.5 63 16 140/72 (94) 91 Room Air 03/15/17 17:47 101 142/92 (109) Physical Exam Notes: General Appearance: WD/WN, no apparent distress, + thin Neck: supple, no adenopathy, thyroid normal Respiratory/Chest: chest non-tender, lungs clear, normal breath sounds, no accessory muscle use Cardiovascular: regular rate, rhythm, no edema, no gallop, no JVD, no murmur Abdomen: normal bowel sounds, soft, + pertinent finding (pt has an ileostomy bag draining liquid brown material, abdomen is soft and non tender, no guarding , there is a herniation in the midline distal to the ileostomy) Extremities: normal range of motion, non-tender, normal inspection, no pedal edema, no calf tenderness 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, no motor/sensory deficits, alert, normal mood/affect, oriented x 3 Skin: no rash Laboratory Results Results Past 24 Hours Test 03/16/17 06:03 Range/Units White Blood Count 15.00 4.8-10.8 K/uL Red Blood Count 4.52 4.7-6.1 M/uL Hemoglobin 12.9 14.0-18.0 g/dL Hematocrit 38.6 42-52 % Mean Corpuscular Volume 85.4 80-100 fL Mean Corpuscular Hemoglobin 28.5 25-34 pg Mean Corpuscular Hemoglobin Concent 33.4 32-36 g/dl Platelet Count 656 130-400 K/uL Mean Platelet Volume 11.0 7.4-10.4 fL RDW Standard Deviation 54.3 36.4-46.3 fL RDW Coefficient of Variation 17.7 11.5-14.5 % Neutrophils % (Manual) 50.8 % Lymphocytes % (Manual) 21.1 % Variant Lymphocytes % (manual) 1.8 % Monocytes % (Manual) 2.6 % Eosinophils % (Manual) 3.5 % Myelocytes % 0.9 % Neutrophils # (Manual) 7.62 1.4-6.5 K/uL Total Absolute Neutrophils 7.62 1.4-6.5 K/uL Lymphocytes # (Manual) 3.17 1.2-3.4 K/uL Absolute Variant Lymphocytes 0.27 K/uL Total Absolute Lymphocytes 6.33 1.2-3.4 K/uL Monocytes # (Manual) 0.39 0.11-0.59 K/uL Eosinophils # (Manual) 0.53 0-0.5 K/uL Myelocytes # 0.14 0-0 K/uL Percent Large Granular Lymphocytes 19.3 % Absolute Large Granular Lymphocytes 2.90 K/uL Anisocytosis PRESENT Target Cells 1+ Calvo-[place] Bodies 1+ Sodium Level 140 136-145 mmol/L Potassium Level 3.3 3.5-5.1 mmol/L Chloride Level 104 98-107 mmol/L Carbon Dioxide Level 28 21-32 mmol/L Anion Gap 8.0 3-11 mmol/L Blood Urea Nitrogen 13 7-18 mg/dl Creatinine 0.74 0.60-1.40 mg/dl Est Creatinine Clear Calc Drug Dose 96.3 ml/min Estimated GFR () 112.2 Estimated GFR (Non- 96.8 BUN/Creatinine Ratio 17.2 10-20 Random Glucose 92 70-99 mg/dl Calcium Level 8.9 8.5-10.1 mg/dl Magnesium Level 2.0 1.8-2.4 mg/dl Total Bilirubin 0.4 0.2-1 mg/dl Aspartate Amino Transf (AST/SGOT) 49 15-37 U/L Alanine Aminotransferase (ALT/SGPT) 86 12-78 U/L Alkaline Phosphatase 412 45-117 U/L Total Protein 6.2 6.4-8.2 gm/dl Albumin 2.7 3.4-5.0 gm/dl Globulin 3.5 2.5-4.0 gm/dl Albumin/Globulin Ratio 0.8 0.9-2 Vancomycin Level Trough 15.5 SEE COMMENT mcg/ml Assessment and Plan 66M with a PMHX of pancreatectomy and splenectomy p/w a one week history of fevers and sweats. Pt was evaluated for meningitis in the ER 2/2 his CHO. CSF findings were unremarkable and CSF cultures negative. CT Chest and Abdomen with IV and PO contrast did not show any acute pathology - several possible inflammatory sites. ID and Wound Care on board. GI was consulted on hospital Day #1. Blood and urine cultures negative. SEPSIS w likely GI source - Improving, abdomen continues to be soft, pt states that he feels better. - WBC 15 and no temp overnight - LFTs elevated but downtrending - appears to be at baseline from October. - MRSA +'ve - CT Chest has no acute pathology. - CT abdo w IV and PO contrast shows "persistent linear soft tissue tracking from the midline ventral abdomen in the epigastrium to the pancreatectomy bed, containing gas. ...and potential direct injection of contrast through this fistula could be considered. ... Inflammatory changes in the region of the gastric antrum and duodenal bulb, new from prior. Gastritis or duodenitis cannot be excluded." - consider surgical referral for their input. - Urine and Blood cultures - no growth - Treated with Vanc and Zosyn and will switch to Augmentin today - ID and GI on board. GI suggestions today: "The non localization of a tract on enterogram suggest a small and possibly longer tract, easier to fix endoscopically. Another temporizing option is to place a smallest g tube via the fistula, will plug the tract and potentially used for nutrition also. This should follow a fistulogram and wire placement under fluro guidance in the endoscopy room." Will talk to patient tomorrow with regards to deciding as to whether or not he would like this to be done here or at [facility] Nutritional status s/p ileostomy - Pt is eating and drinking fine but has ileostomy, most water absorption occurs in the colon. - on Boost Supplement (pt takes this at home) Hypertension - propanolol daily Hypokalemia - supplemented with IV potassium 10 meq and PO 20 meq - will continue to monitor Gastroesophageal Reflux Disease - Continue Prilosec Depression/Anxiety - Continue Zoloft - Continue Klonopin Tremors - Continue Primidone - BB as above. DVT Prophylaxis - HepSQ 5000IU BID daily. Disposition - Tele - OT and PT on Board. - patient does not want home help FULL CODE Continued [facility] stay due to: multiple IV medications needed
[2017-03-16] MEDS: AMOXICILLIN/CLAVULANATE TAB 875 MG TAB PO SCH (16:35)
[2017-03-16] MEDS: CLONAZEPAM 0.5 MG TAB PO SCH (21:33)
[2017-03-17] VITALS (9 sets, daily range): BP systolic 102–161; BP diastolic 76–82; PULSE 53–84; TEMP 36.6–37; O2SAT 90–96
[2017-03-17] MEDS: IPRATROPIUM BROMIDE NEB SOLN 0.02% 2.5 ML VIAL INH SCH ×3 (03:44→11:18)
[2017-03-17] MEDS: LEVALBUTEROL 1.25MG/0.5ML NEB INH SCH ×3 (03:44→11:18)
[2017-03-17 06:07] LABS: HEMATOCRIT 37.3 % (42-52); MEAN CORPUSCULAR HEMOGLOBIN 30.3 pg (25-34); MEAN CORPUSCULAR HGB CONC 35.7 g/dl (32-36); PLATELET COUNT 735 K/uL (130-400); RED BLOOD COUNT 4.39 M/uL (4.7-6.1); WHITE BLOOD COUNT 15.63 K/uL (4.8-10.8)
[2017-03-17 06:38] LABS: CALCIUM 9.1 mg/dl (8.5-10.1); CREATININE 0.68 mg/dl (0.60-1.40); POTASSIUM 3.3 mmol/L (3.5-5.1)
[2017-03-17 06:41] LABS: ALB/GLOB RATIO 0.7 (0.9-2)
[2017-03-17] MEDS ORDERED: POTASSIUM CHLORIDE 10 MEQ TABCR PO STA (07:09)
[2017-03-17 07:36] LABS: COMPLETE YES; GIANT PLATELETS 1+; HOWELL-JOLLY BODIES 1+; LYMPH ABS # 4.22 K/uL (1.2-3.4); NEUTROPHILS % 43.4 %; TARGET CELLS 2+; VARIANT LYM ABS # 2.86 K/uL; VARIANT LYMPHOCYTE % 18.3 %
[2017-03-17] MEDS: HEPARIN SOD 5000 UNIT/0.5 ML CARP SQ SCH (07:58)
[2017-03-17] MEDS: AMOXICILLIN/CLAVULANATE TAB 875 MG TAB PO SCH (07:58)
[2017-03-17] MEDS: BOOST VANILLA PO SCH ×2 (07:58)
[2017-03-17] MEDS: ESCITALOPRAM OXALATE 10 MG TAB PO SCH (07:59)
[2017-03-17] MEDS: ASPIRIN 325 MG ECTAB PO SCH (07:59)
[2017-03-17] MEDS: PANTOprazole SOD 40 MG TAB PO SCH (07:59)
--- NOTE | 2017-03-17 08:58 | Gastroenterology Progress Note ---
Progress Note Date of Service: Mar 17, 2017 Subjective Pt evaluation today including: conversation w/ patient Review of Systems Constitutional: + fatigue more discharge from the fistula, to day it looks like solid stool Medications Current Inpatient Medications Medications (Trade) Dose Ordered Sig/Pio Route Start Time Stop Time Status Last Admin Dose Admin Acetaminophen (Tylenol Tab) 650 mg Q4H PRN PO 03/12/17 23:15 04/11/17 23:14 03/15/17 11:23 650 MG Al Hydrox/Mg Hydrox/Simethicone (Maalox Max Susp) 15 ml Q4H PRN PO 03/12/17 23:15 04/11/17 23:14 Magnesium Hydroxide (Milk Of Magnesia Susp) 30 ml Q6H PRN PO 03/12/17 23:15 04/11/17 23:14 Polyethylene (Miralax Powder Packet) 17 gm DAILY PRN PO 03/12/17 23:15 04/11/17 23:14 Ondansetron HCl (Zofran Inj) 4 mg Q6H PRN IV 03/12/17 23:15 04/11/17 23:14 Aspirin (Ecotrin Tab) 325 mg DAILY PO 03/13/17 08:00 04/12/17 08:59 03/17/17 07:59 325 MG Clonazepam (Klonopin Tab) 0.5 mg DAILY@2130 PO 03/13/17 21:30 04/12/17 21:29 03/16/17 21:33 0.5 MG Escitalopram Oxalate (Lexapro Tab) 10 mg DAILY PO 03/13/17 08:00 04/12/17 08:59 03/17/17 07:59 10 MG Pantoprazole Sodium (Protonix Tab) 40 mg BID PO 03/13/17 08:00 04/12/17 08:59 03/17/17 07:59 40 MG Ioversol (Optiray 320) 100 ml UD PRN IV 03/13/17 13:00 03/17/17 12:59 Enteral Nutritional Formula (Boost) 1 can BIDM PO 03/14/17 16:45 04/13/17 16:44 03/17/17 07:58 1 CAN Albuterol/ Ipratropium (Duoneb) 3 ml Q2H PRN INH 03/14/17 22:00 04/13/17 21:59 Ipratropium [place] (Atrovent 0.02% 0.5MG/2.5ML Neb) 0.5 mg Q4R INH 03/15/17 00:00 04/14/17 00:00 03/17/17 06:56 0.5 MG Levalbuterol (Xopenex 1.25MG/ 0.5ML Neb) 1.25 mg Q4R INH 03/15/17 00:00 04/14/17 00:00 03/17/17 06:55 1.25 MG Heparin Sodium (Porcine) (Heparin Sq 5000 Unit/0.5ml) 5,000 unit Q12 SQ 03/15/17 21:00 04/14/17 20:59 03/17/17 07:58 5,000 UNIT Amoxicillin/ Clavulanate Potassium (Augmentin Tab) 875 mg BIDM PO 03/16/17 16:45 03/26/17 16:44 03/17/17 07:58 875 MG Amlodipine Besylate (Norvasc Tab) 5 mg QAM PO 03/17/17 09:00 04/16/17 08:59 03/17/17 07:57 5 MG Propranolol HCl (Inderal Tab) 60 mg QAM PO 03/17/17 09:00 04/16/17 08:59 Objective Vital Signs Date Time Temp Pulse Resp B/P (MAP) Pulse Ox O2 Delivery O2 Flow Rate FiO2 03/17/17 08:11 36.6 84 22 102/78 (86) 92 Room Air 03/17/17 07:00 60 16 91 Room Air 03/17/17 04:16 36.8 56 16 161/82 (108) 94 Room Air 03/17/17 04:00 Room Air 03/17/17 03:45 58 16 90 Room Air 03/17/17 00:19 37.0 62 17 155/76 (102) 92 Room Air 03/17/17 00:00 Room Air 03/16/17 23:13 60 16 90 Room Air 03/16/17 20:00 Room Air 03/16/17 19:47 57 16 94 Room Air 03/16/17 18:54 37.1 60 18 137/77 (97) 92 Room Air 03/16/17 16:00 96 Room Air 03/16/17 15:30 37.2 55 18 154/78 (103) 97 Room Air 03/16/17 15:19 56 16 96 Room Air 03/16/17 12:35 36.9 52 23 146/79 (101) 94 Room Air 03/16/17 12:00 95 Room Air 03/16/17 11:24 52 16 93 Room Air Physical Exam Abdomen: non tender, soft, + pertinent finding (stoma bag full of stool) Laboratory Results Last 24 Hours Test 03/17/17 05:34 White Blood Count 15.63 K/uL Red Blood Count 4.39 M/uL Hemoglobin 13.3 g/dL Hematocrit 37.3 % Mean Corpuscular Volume 85.0 fL Mean Corpuscular Hemoglobin 30.3 pg Mean Corpuscular Hemoglobin Concent 35.7 g/dl Platelet Count 735 K/uL Mean Platelet Volume 11.0 fL RDW Standard Deviation 53.3 fL RDW Coefficient of Variation 17.3 % Nucleated RBC Absolute Count (auto) 0.09 K/uL Neutrophils % (Manual) 43.4 % Lymphocytes % (Manual) 27.0 % Variant Lymphocytes % (manual) 18.3 % Monocytes % (Manual) 4.3 % Eosinophils % (Manual) 7.0 % Nucleated Red Blood Cells % 0.6 % Neutrophils # (Manual) 6.78 K/uL Total Absolute Neutrophils 6.78 K/uL Lymphocytes # (Manual) 4.22 K/uL Absolute Variant Lymphocytes 2.86 K/uL Total Absolute Lymphocytes 7.08 K/uL Monocytes # (Manual) 0.67 K/uL Eosinophils # (Manual) 1.09 K/uL Giant Platelets 1+ Target Cells 2+ Calvo-[place] Bodies 1+ Sodium Level 141 mmol/L Potassium Level 3.3 mmol/L Chloride Level 105 mmol/L Carbon Dioxide Level 28 mmol/L Anion Gap 8.0 mmol/L Blood Urea Nitrogen 13 mg/dl Creatinine 0.68 mg/dl Est Creatinine Clear Calc Drug Dose 104.8 ml/min Estimated GFR () 116.2 Estimated GFR (Non- 100.2 BUN/Creatinine Ratio 19.0 Random Glucose 91 mg/dl Calcium Level 9.1 mg/dl Magnesium Level 2.0 mg/dl Total Bilirubin 0.5 mg/dl Aspartate Amino Transf (AST/SGOT) 35 U/L Alanine Aminotransferase (ALT/SGPT) 75 U/L Alkaline Phosphatase 455 U/L Total Protein 6.3 gm/dl Albumin 2.7 gm/dl Globulin 3.6 gm/dl Albumin/Globulin Ratio 0.7 Assessment and Plan Imp: Post operative fistula Recommend endoscopic attempt to close this before considering surgery. Pt will discuss plan with surgeon The non localization of a tract on prior enterogram suggest a small and possibly longer tract, easier to fix endoscopically. A fistulogram is needed to map the location of the tract. Today appearance of stool suggest very low fistula or even a colonic one. If that is the case a feeding tube placement is less optimal and the endoscopic approach may have to be retrograde. Will be happy to collaborate with the [facility] surgeons for endoscopic work if needed
[2017-03-17] MEDS ORDERED: PROPRANOLOL HCL 20 MG TAB PO SCH ×2 (09:00)
[2017-03-17] MEDS ORDERED: AMLODIPINE BESYLATE 5 MG TAB PO SCH (09:00)
[2017-03-17] MEDS ORDERED: AMOX1TAB43 PO (11:36)
[2017-03-17] MEDS ORDERED: NRV5 PO (11:36)
--- NOTE | 2017-03-17 11:41 | Discharge Instructions ---
Discharge Instructions Date of Service Mar 17, 2017. Admission Reason for Admission: Fever, S/P Splenectomy Discharge Discharge Diagnosis / Problem: Fever of unknown origin Discharge Goals Goal(s): Diagnostic testing, Prevent Disease Progression Activity Recommendations Activity Limitations: per Instructions/Follow-up section . Instructions / Follow-Up Instructions / Follow-Up We will be sending you home with oral antibiotics. Please take these as prescribed We will also be sending you home with a medication for your blood pressure. Please take this as prescribed Please follow up with your family doctor in the next 2-3 days and get repeat blood work done to check your blood counts Please follow up with your doctor at [facility] to discuss management of your abdominal fistula If you experience any worsening fevers, shortness of breath, abdominal pain or decreased appetite then please come back to the emergency department Current Hospital Diet Patient's current hospital diet: Regular Diet Discharge Diet Recommended Diet: Regular Diet Pending Studies Studies pending at discharge: no Laboratory Results Lipid Panel Test 01/07/17 09:05 Range/Units Triglycerides Level 60 0-150 mg/dl Medical Emergencies . Who to Call and When: Medical Emergencies: If at any time you feel your situation is an emergency, please call 911 immediately. . Non-Emergent Contact Non-Emergency issues call your: Primary Care Provider, Electronic Systems Technician . . "Provider Documentation" section prepared by Rufus Viera. . VTE Core Measure Inpt VTE Proph given/why not?: Enoxaparin (Lovenox)PERLA, T.ECullen Ahmadi, SCD's
--- NOTE | 2017-03-17 11:56 | Discharge Summary ---
Discharge Summary Date of Service Mar 17, 2017. Discharge Summary Admission Date: Mar 12, 2017 at 23:08 Discharge Date: Mar 17, 2017 Discharge Disposition: Home Principal Diagnosis: Fever of unknown origin Consultations: GI and infectious disease Medication Reconciliation New Medications: Amlodipine Besylate (Amlodipine Besylate) 5 Mg Tab 5 MG PO QAM for 30 Days, #30 TAB Amoxicillin & Pot Clavulanate (Amoxicillin/Clavulanate P) 1 Tab Tab 875 MG PO BIDM for 7 Days, #14 TAB Continued Medications: Aspirin (Aspirin Ec) 325 Mg Tab 325 MG PO DAILY Clonazepam (Klonopin) 0.5 Mg Tab 0.5 MG PO DAILY@2130, TAB Escitalopram (Lexapro) 10 Mg Tab 10 MG PO DAILY, TAB Omeprazole (Prilosec) 20 Mg Capcr 20 MG PO BID, CAP Primidone (Mysoline) 50 Mg Tab 75 MG PO QPM, TAB Propranolol Hcl (Propranolol ER) 60 Mg Capcr 60 MG PO DAILY Discharge Exam Patient feeling well and without any complaints Review of Systems: Constitutional: No fever, No chills, No sweats Respiratory: No cough, No sputum, No shortness of breath Cardiovascular: No chest pain, No edema Abdomen: No pain, No nausea, No vomiting Genitourinary - Male: No hematuria, No dysuria Hematologic / Lymphatic: No abnormal bleeding/bruising, No clotting problems Integumentary: No rash, No itch, No new/changing skin lesions Physical Exam: General Appearance: WD/WN, no apparent distress ENT: hearing grossly normal, pharynx normal Neck: no adenopathy, no JVD Respiratory/Chest: lungs clear, no respiratory distress, no accessory muscle use Cardiovascular: regular rate, rhythm, no murmur, normal peripheral pulses Abdomen / GI: normal bowel sounds, non tender, soft, + pertinent finding ( stoma bag in midline of abdomen draining brown fecal matter) Extremities: no calf tenderness, no pedal edema, normal range of motion Neurologic/Psychiatric: oriented x 3, + pertinent finding (resting tremor in upper limbs bilaterally) Skin: normal color, warm/dry, no rash Hospital Course 66M with a PMHX of pancreatectomy and splenectomy (has has his Pneumococcal vaccine) p/w a one week history of fevers and sweats. Pt was evaluated for meningitis in the ER 2/2 his CHO. CSF findings were unremarkable and CSF cultures negative. CT Chest and Abdomen with IV and PO contrast did not show any acute pathology - several possible inflammatory sites. ID and Wound Care on board. GI was consulted on hospital Day #1. Blood and urine cultures negative. Pt was put on empiric Vanc and Zosyn until cultures finalized. SEPSIS w likely GI source - Improving, abdomen continues to be soft, pt states that he feels better. - WBC 15 on discharge and patient transitioned to PO Augmentin for 7 days. Was on Vanc and Zosyn for broad spectrum - Lipase WNL. - MRSA +'ve - CT Chest has no acute pathology. - CT abdo w IV and PO contrast shows "persistent linear soft tissue tracking from the midline ventral abdomen in the epigastrium to the pancreatectomy bed, containing gas. ...and potential direct injection of contrast through this fistula could be considered. ... Inflammatory changes in the region of the gastric antrum and duodenal bulb, new from prior. Gastritis or duodenitis cannot be excluded." - GI on board and the following is there suggestion: "The non localization of a tract on prior enterogram suggest a small and possibly longer tract, easier to fix endoscopically. A fistulogram is needed to map the location of the tract. Today appearance of stool suggest very low fistula or even a colonic one. If that is the case a feeding tube placement is less optimal and the endoscopic approach may have to be retrograde" - Spoke to patient and he said he wants to go to [facility] to get this managed further Hypoxia - patient saturating well at room air but failed 2 step on day of discharge - nurses unable to get adequate saturation on finger due to tremor and nurse states that oxygen monitor on head not reliable - informed patient of risks of low oxygen saturations; however he refused ABG or any further testing - will need to follow up with PCP Hypokalemia - 3.3 on day of discharge - given 40meq PO on discharge - will need to follow levels with PCP Hypertension - Propanolol 60mg OD Gastroesophageal Reflux Disease - Continue Prilosec Depression/Anxiety - Continue Zoloft - Continue Klonopin Tremors - Continue Primidone - BB as above. Disposition - Tele - OT and PT on Board. - Home, independent, declined home services Total Time Spent: Less than 30 minutes This includes examination of the patient, discharge planning, medication reconciliation, and communication with other providers. Discharge Instructions Please refer to the electronic Patient Visit Report (Discharge Instructions) for additional information. Additional Copies To Chino Abdul MD
[2017-03-25 12:34] LABS: HSV TYPE 1 DNA Not Detected (Not Detected); HSV TYPE 1&2 DNA SOURCE CSF; HSV TYPE 2 DNA Not Detected (Not Detected)
== END 2017-03-17 13:59 | disposition home or self-care (01) | DRG 871 ==
LOC: C.EDB 16:52 → C.4E 23:08 → ENRESERV 23:25 → C.2E 03-13 12:51 → EDBEDREQ 03-13 13:11 → ENRESERV 03-13 14:15
PROVIDERS: ADMIT Student in an Organized Health Care Education/Training Program; ATTEND Hospitalist
DX: A41.9 Sepsis, unspecified organism (principal); J96.01 Acute respiratory failure with hypoxia; K86.1 Other chronic pancreatitis; E87.6 Hypokalemia; I10 Essential (primary) hypertension; F32.9 Major depressive disorder, single episode, unspecified; K21.9 Gastro-esophageal reflux disease without esophagitis; F41.9 Anxiety disorder, unspecified; R25.1 Tremor, unspecified; Z90.49 Acquired absence of other specified parts of digestive tract; Z79.82 Long term (current) use of aspirin; Z80.9 Family history of malignant neoplasm, unspecified

== ENCOUNTER → 2017-03-25 | Outpatient (CLI) | payer BC, OTHER ==
[~2017-03-25] MED LIST changes: +AMOX1TAB43 PO; +ESCI10TA17 PO; -ESCI1TAB6 PO; -HYDROMORPHONE HCL PO; +INDSR/60 PO; +NRV5 PO; +PRIM50TA29 PO; -TPN IV
[2017-03-25 12:25] LABS: BLOOD UREA NITROGEN 16 mg/dl (7-18); BUN/CREATININE RATIO 22.1 (10-20); CALCIUM 9.5 mg/dl (8.5-10.1); CARBON DIOXIDE 28 mmol/L (21-32); CHLORIDE 106 mmol/L (98-107); CREATININE 0.73 mg/dl (0.60-1.40); GLUCOSE 96 mg/dl (70-99); POTASSIUM 3.9 mmol/L (3.5-5.1); SODIUM 141 mmol/L (136-145)
[2017-03-25 12:52] LABS: HEMATOCRIT 42.6 % (42-52); MEAN CELL VOLUME 88.9 fL (80-100); MEAN CORPUSCULAR HEMOGLOBIN 29.9 pg (25-34); MEAN CORPUSCULAR HGB CONC 33.6 g/dl (32-36); PLATELET COUNT 1594 K/uL (130-400); RED BLOOD COUNT 4.79 M/uL (4.7-6.1); WHITE BLOOD COUNT 15.41 K/uL (4.8-10.8)
[2017-03-25 13:01] LABS: ANISOCYTOSIS PRESENT; BASO % 1.1 %; BASO ABS # 0.17 K/uL (0-0.2); COMPLETE YES; ECHINOCYTES 1+; EOS % 3.1 %; IG% 0.7 %; LYMPH % 20.9 %; LYMPH ABS # 3.22 K/uL (1.2-3.4); MONO % 10.2 %; TARGET CELLS 1+; TOXIC GRANULATION 1+
== END | disposition home or self-care (01) ==
LOC: C.LAB 10:43
PROVIDERS: ATTEND Family Medicine
DX: R50.9 Fever, unspecified (principal); E87.6 Hypokalemia

== ENCOUNTER → 2017-03-25 | Outpatient (CLI) | payer BC, OTHER ==
--- NOTE | 2017-03-25 11:29 | DIAGNOSTIC IMAGING REPORT ---
KUB CLINICAL HISTORY: ENTEROCUTANEOUS FISTULA COMPARISON STUDY: July 24, 2016, CT scan dated 03/13/2017 FINDINGS: Postsurgical changes are present within the upper abdomen. There is a celiac stent. There are surgical clips secondary to a prior cholecystectomy. There are radiopaque surgical densities at the level the esophagogastric junction. There are bilateral renal calcifications possibly vascular. There is a surgical anastomotic suture line within the pelvis consistent with a sigmoid anastomosis. There are no transition zone to indicate bowel obstruction. There is scattered stool within the colon. Multiple pelvic basin calcifications likely represent phleboliths. IMPRESSION: Postsurgical changes. No evidence of pathologic bowel dilatation. Electronically signed by: Abdoulaye Alarcon M.D. 03/25/2017 11:27 AM Dictated Date/Time: 03/25/2017 11:25 AM
== END | disposition home or self-care (01) ==
LOC: C.RAD 10:47
PROVIDERS: ATTEND Surgery
DX: K63.2 Fistula of intestine (principal)

== ENCOUNTER 2017-05-04 10:48 | Emergency (ER) | payer BC, OTHER ==
[~2017-05-04] VITALS: Ht 172.7 cm; Wt 71.0 kg
[2017-05-04 10:55] VITALS: TEMP 36.4; Ht 172.7 cm; Wt 71.0 kg
[2017-05-04] MEDS ORDERED: AMOXICILLIN/CLAVULANATE TAB 875 MG TAB PO ONE (13:00)
[2017-05-04] MEDS ORDERED: AMOX875T PO (13:40)
[2017-05-04 14:14] VITALS: BP 128/78; PULSE 67; O2SAT 98
--- NOTE | 2017-05-04 17:56 | EMERGENCY ROOM VISIT NOTE ---
History Report prepared by Radha: Anastacia Connor Under the Supervision of: Dr. Casey Mckeon M.D. First contact with patient: 11:24 Chief Complaint: SKIN PROBLEM Stated Complaint: SKIN BREAKDOWN History of Present Illness The patient is a 66 year old male who presents to the Emergency Room with complaints of skin breakdown around his fistula site. The patient had a transverse colon fistula put in place by Dr. Sneed at [facility] in August. The patient has a fistula because he had part of his pancreas removed. He notes skin soreness around the fistula site. Pt denies LOC, headache, fevers, chills, diaphoresis, visual changes, neck pain, chest pain, breathing difficulties, nausea, vomiting, abdominal pain, back pain, melena, hematochezia, urinary symptoms, numbness, weakness, lymphadenopathy, or other complaints. Source of History: patient Position: other (skin) Quality: other (breakdown) Modifying Factors (Relieving): other (none) Note: Pt notes skin soreness. Review of Systems See HPI for pertinent positives and negatives. A total of ten systems were reviewed and were otherwise negative. Past Medical & Surgical Medical Problems: (1) Acute pancreatitis (2) Hypertension (3) Melanoma (4) Occluded PICC line (5) Pancreatitis (6) Pancreatitis due to biliary obstruction (7) Sacral wound Surgical Problems: (1) History of back surgery (2) S/P cholecystectomy (3) S/P colon resection (4) S/P splenectomy Family History FH: cancer FH: gallbladder disease FH: heart disease Hypertension Social History Smoking Status: Never Smoker Alcohol Use: none Drug Use: none Marital Status: Housing Status: lives with significant other Occupation Status: retired Current/Historical Medications Scheduled Amlodipine Besylate (Amlodipine Besylate), 5 MG PO QAM Amoxicillin & Pot Clavulanate (Augmentin 875-125 mg), 875 MG PO BID Aspirin (Aspirin Ec), 325 MG PO DAILY Clonazepam (Klonopin), 0.5 MG PO DAILY@2130 Escitalopram (Lexapro), 10 MG PO DAILY Omeprazole (Prilosec), 20 MG PO DAILY Primidone (Mysoline), 75 MG PO QPM Propranolol Hcl (Propranolol ER), 60 MG PO DAILY Allergies Coded Allergies: No Known Allergies (Unverified , 05/04/17) Physical Exam Vital Signs Date Time Temp Pulse Resp B/P (MAP) Pulse Ox O2 Delivery O2 Flow Rate FiO2 05/04/17 14:14 67 18 128/78 98 05/04/17 10:55 36.4 60 18 113/77 98 Room Air Physical Exam GENERAL: Awake, alert, well-appearing, in no distress HENT: Normocephalic, atraumatic. Oropharynx unremarkable. EYES: Normal conjunctiva. Sclera non-icteric. NECK: Supple. No nuchal rigidity. FROM. No JVD. RESPIRATORY: Clear to auscultation. CARDIAC: Regular rate, normal rhythm. Extremities warm and well perfused. Pulses equal. ABDOMEN: Midline surgical scar, colocutaneous fistula present in midline, superficial skin breakdown with scant bleeding, mild skin erythema, tenderness of surrounding skin at site. No abdominal tenderness. NEURO: Normal sensorium. No sensory or motor deficits noted. SKIN: No rash or jaundice noted. Medical Decision & Procedures Medications Administered Medications (Trade) Dose Ordered Sig/Pio Route Start Time Stop Time Status Last Admin Dose Admin Amoxicillin/ Clavulanate Potassium (Augmentin Tab) 875 mg ONE ONCE PO 05/04/17 13:00 05/04/17 13:01 DC 05/04/17 14:14 875 MG ED Course 1132: The patient was evaluated in room C4. A complete history and physical exam was performed. 1223: I reevaluated the patient. He has surrounding erythema to fistula site. 1243: [facility] the [facility] He had no specific recommendations for wound care. 1300: Augmentin Tab 875 mg PO. 1324: Nursing is putting on a temporary dressing. The patient will follow up with wound referral on Saturday. 1344: I reevaluated the patient. Discussed results and discharge instructions: He verbalized understanding and agreement. The patient is ready for discharge. Medical Decision Triage Nursing notes reviewed. The patient's presentation and history were concerning for skin breakdown and ostomy. Etiologies such as cellulitis, abscess, MRSA infection, dermatitis, necrotizing fasciitis,as well as others were entertained. The patient was evaluated. He had some mild erythema surrounding the skin breakdown surrounding the ostomy. This is concerning for a very early cellulitis. Wound care is not available over the weekend. I did discuss case with GI who had no specific recommendations except for follow-up with the wound center. Ostomy dressing was applied. The patient was given Augmentin. He is nontoxic and has a benign abdomen examination. Case management did meet with the patient. He will be followed up with the wound center on Saturday. He has GI appointment on Saturday. If he worsens in any way he will be back. I did encourage him to keep the areas clean as possible and not with the bag fell and stool so on the skin. I gave my usual and customary discussion regarding this issue. By the evaluation outlined above other emergent etiologies such as those listed in the differential, as well as others, were deemed relatively unlikely. The patient was educated about the findings as listed above. All questions were answered and the patient was pleased with the treatment. Return instructions were outlined and the patient was discharged in stable condition. The patient was referred to the wound center and GI for follow-up for a recheck of the current condition. Blood Pressure Screening Patient's blood pressure: Normal blood pressure Consults Time Called: 1240 Consulting Physician: Dr. Audelia ACHARYA Returned Call: 1243 Discussed the patient's case with Dr. Audelia Montoya GI. He had no specific recommendations for wound care. Impression Primary Impression: Abdominal wall cellulitis Additional Impression: Colocutaneous fistula Scribe Attestation The scribe's documentation has been prepared under my direction and personally reviewed by me in its entirety. I confirm that the note above accurately reflects all work, treatment, procedures, and medical decision making performed by me. Departure Information Dispostion Home / Self-Care Prescriptions Amoxicillin & Pot Clavulanate (Augmentin 875-125 mg) 1 Tab Tab 875 MG PO BID for 7 Days, #14 TAB Prov: Casey Mckeon MD 05/04/17 Referrals Chino Abdul MD (PCP) Forms HOME CARE DOCUMENTATION FORM, IMPORTANT VISIT INFORMATION, WORK / SCHOOL INSTRUCTIONS Patient Instructions My [facility] Additional Instructions Amoxicillin Clavulanate (Augmentin) 875mg: Take one pill twice daily for 7 days for your skin infection. All antibiotics can cause diarrhea. If this occurs and you feel worse or it does not resolve in 1-2 days follow up with your doctor or return to the Emergency Department as this could be signs of serious underlying problems. Any medication can cause an allergic reaction, stop the pills immediately and return to the ER for rash, hives, breathing difficulties, or swelling. Return to the ER immediately for spreading redness, fevers, pus-like drainage, severe pain, or as needed. Wound care as instructed. Follow-up with GI as scheduled on Saturday. Call the [facility] for Wound Care at [phone] Saturday morning. Tell them you were in the ER and we want you to have your wound evaluated. Problem Qualifiers
== END 2017-05-04 14:15 | disposition home or self-care (01) ==
LOC: C.EDB 10:49 → C.EDC 14:15
DX: L03.311 Cellulitis of abdominal wall (principal); K63.2 Fistula of intestine; I10 Essential (primary) hypertension; K86.1 Other chronic pancreatitis; Z90.49 Acquired absence of other specified parts of digestive tract; Z98.890 Other specified postprocedural states; Z79.82 Long term (current) use of aspirin; Z79.899 Other long term (current) drug therapy; Z80.9 Family history of malignant neoplasm, unspecified; Z83.79 Family history of other diseases of the digestive system; Z82.49 Family history of ischemic heart disease and other diseases of the circulatory system

== ENCOUNTER → 2017-05-06 | Day surgery (SDC) | payer BC ==
[~2017-05-06] MED LIST changes: -AMOX1TAB43 PO; +AMOX875T PO
== END | disposition home or self-care (01) ==
LOC: C.ACU 14:26
PROVIDERS: ATTEND Family Medicine
DX: Z43.3 Encounter for attention to colostomy (principal)

== ENCOUNTER 2017-06-15 12:18 | Inpatient (IN) | payer BC, OTHER ==
[~2017-06-15] VITALS: Ht 172.7 cm; Wt 72.0 kg
[2017-06-15] VITALS (9 sets, daily range): BP systolic 112–133; BP diastolic 65–77; PULSE 46–107; TEMP 36.4–36.7; O2SAT 93–97; Ht 172.7 cm; Wt 72.0 kg
[~2017-06-15 12:18] MED LIST changes: -AMOX875T PO; -CLON0.5T3 PO; +KLN/5 PO
[2017-06-15] MEDS ORDERED: SODIUM CHLORIDE 0.9% 500ML 500 ML IV STA (12:56)
--- NOTE | 2017-06-15 13:02 | EMERGENCY ROOM VISIT NOTE ---
History Report prepared by Radha: Gilmer Hu Under the Supervision of: Dr. Brandon Santoro M.D. First contact with patient: 12:48 Chief Complaint: GI ASSESSMENT Stated Complaint: BLEEDING Nursing Triage Summary: pt to the ED with concern for black stool in his bag no nausea, vomitting no SOB History of Present Illness The patient is a 66 year old male who presents to the Emergency Room with complaints of constant black stools in his bag that began three days ago. 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 He reports that he has a surgery scheduled on the 04 of July to clip off the fistula. He reports that he noticed there has been black stool in his bag from time to time that would usually go away in a day or two. The patient states that the black stool has been constant for the last three days, which caused him to come to the ED. He states that he has been experiencing weakness and fatigue, but admits that this is normal. The patient denies fever, nausea, dizziness, abdominal pain, a change in eating or drinking habits, history of an ulcer, gastritis, or cancer. He reports that he had a partial pancreatectomy and a complete splenectomy because his pancreatic duct was blocked--he has chronic pancreatitis. The patient reports a history of heart burn, which he regularly takes Omeprazole for. He states that he used to take Aspirin 325 mg due to his high blood platelets, but he reports that he was reduced to a baby aspirin, which he did not take today. Source of History: patient Onset: three days ago Position: other (global) Quality: other (black stool) Timing: constant Associated Symptoms: + fatigue, + weakness, No fevers, No nausea, No abdominal pain Review of Systems See HPI for pertinent positives & negatives. A total of 10 systems reviewed and were otherwise negative. Past Medical & Surgical Medical Problems: (1) Acute pancreatitis (2) Hypertension (3) Melanoma (4) Occluded PICC line (5) Pancreatitis (6) Pancreatitis due to biliary obstruction (7) Sacral wound (8) Upper GI bleed Surgical Problems: (1) History of back surgery (2) S/P cholecystectomy (3) S/P colon resection (4) S/P splenectomy Family History FH: cancer FH: gallbladder disease FH: heart disease Hypertension Social History Smoking Status: Never Smoker Alcohol Use: none Drug Use: none Marital Status: Housing Status: lives with significant other Occupation Status: retired Current/Historical Medications Scheduled Aspirin (Aspirin Ec), 81 MG PO DAILY Carbidopa/Levodopa (Sinemet 25MG/100MG), 2 TAB PO TID Clonazepam (Klonopin), 0.5 MG PO DAILY@2130 Docusate Sodium (Colace), 1 CAP PO BID Escitalopram (Lexapro), 10 MG PO DAILY Omeprazole (Prilosec), 20 MG PO DAILY Primidone (Mysoline), 75 MG PO QPM Propranolol Hcl (Propranolol ER), 60 MG PO DAILY Allergies Coded Allergies: No Known Allergies (Unverified , 05/04/17) Physical Exam Vital Signs Date Time Temp Pulse Resp B/P (MAP) Pulse Ox O2 Delivery O2 Flow Rate FiO2 06/15/17 14:07 54 20 119/60 92 Room Air 06/15/17 13:24 36.8 59 18 103/55 97 Room Air 06/15/17 13:23 58 06/15/17 12:52 36.8 70 18 100/84 97 Room Air 06/15/17 12:51 97 Room Air 06/15/17 12:34 36.8 63 18 105/68 100 Physical Exam GENERAL: Patient is in no acute distress. HEENT: No acute trauma, normocephalic atraumatic, mucous membranes moist, no nasal congestion, no scleral icterus. NECK: No stridor, no adenopathy, no meningismus, trachea is midline. LUNGS: Clear to auscultation bilaterally, no wheeze, no rhonchi, breath sounds equal. HEART: Without murmurs gallops or rubs, regular rate and rhythm. ABDOMEN: Soft, nontender, bowel sounds positive, no hernias, no peritonitis. Colostomy bag present with black stool. Heme positive. EXTREMITIES: No cyanosis or edema, full range of motion of all the joints without pain or difficulty, no signs for acute trauma. NEUROLOGIC: Oriented x 3, no acute motor or sensory deficits, no focal weakness. SKIN: No rash, no jaundice, no diaphoresis. Medical Decision & Procedures Laboratory Results 06/15/17 13:06 Red Blood Count 3.14, Mean Corpuscular Volume 94.9, Mean Corpuscular Hemoglobin 29.9, Mean Corpuscular Hemoglobin Concent 31.5, Mean Platelet Volume 9.8, Neutrophils (%) (Auto) 69.7, Lymphocytes (%) (Auto) 15.9, Monocytes (%) (Auto) 5.6, Eosinophils (%) (Auto) 7.1, Basophils (%) (Auto) 1.1, Neutrophils # (Auto) 13.92, Lymphocytes # (Auto) 3.18, Monocytes # (Auto) 1.13, Eosinophils # (Auto) 1.43, Basophils # (Auto) 0.22 06/15/17 13:06 Test 06/15/17 13:06 White Blood Count 20.01 K/uL (4.8-10.8) Red Blood Count 3.14 M/uL (4.7-6.1) Hemoglobin 9.4 g/dL (14.0-18.0) Hematocrit 29.8 % (42-52) Mean Corpuscular Volume 94.9 fL (80-100) Mean Corpuscular Hemoglobin 29.9 pg (25-34) Mean Corpuscular Hemoglobin Concent 31.5 g/dl (32-36) Platelet Count 1472 K/uL (130-400) Mean Platelet Volume 9.8 fL (7.4-10.4) Neutrophils (%) (Auto) 69.7 % Lymphocytes (%) (Auto) 15.9 % Monocytes (%) (Auto) 5.6 % Eosinophils (%) (Auto) 7.1 % Basophils (%) (Auto) 1.1 % Neutrophils # (Auto) 13.92 K/uL (1.4-6.5) Lymphocytes # (Auto) 3.18 K/uL (1.2-3.4) Monocytes # (Auto) 1.13 K/uL (0.11-0.59) Eosinophils # (Auto) 1.43 K/uL (0-0.5) Basophils # (Auto) 0.22 K/uL (0-0.2) RDW Standard Deviation 58.6 fL (36.4-46.3) RDW Coefficient of Variation 17.1 % (11.5-14.5) Immature Granulocyte % (Auto) 0.6 % Immature Granulocyte # (Auto) 0.13 K/uL (0.00-0.02) Nucleated RBC Absolute Count (auto) 0.09 K/uL (0-0) Nucleated Red Blood Cells % 0.4 % Platelet Estimate INCREASED Target Cells 1+ Calvo-Arnold Bodies OCCASIONAL Prothrombin Time 11.4 SECONDS (9.0-12.0) Prothromb Time International Ratio 1.1 (0.9-1.1) Activated Partial Thromboplast Time 28.8 SECONDS (21.0-31.0) Partial Thromboplastin Ratio 1.1 Anion Gap 5.0 mmol/L (3-11) Est Creatinine Clear Calc Drug Dose 83.8 ml/min Estimated GFR () 106.0 Estimated GFR (Non- 91.4 BUN/Creatinine Ratio 23.6 (10-20) Calcium Level 8.6 mg/dl (8.5-10.1) Total Bilirubin 0.3 mg/dl (0.2-1) Direct Bilirubin < 0.1 mg/dl (0-0.2) Aspartate Amino Transf (AST/SGOT) 23 U/L (15-37) Alanine Aminotransferase (ALT/SGPT) 29 U/L (12-78) Alkaline Phosphatase 214 U/L (45-117) Total Protein 6.3 gm/dl (6.4-8.2) Albumin 3.1 gm/dl (3.4-5.0) Lipase 88 U/L (73-393) Laboratory results reviewed by me. Medications Administered Medications (Trade) Dose Ordered Sig/Pio Route Start Time Stop Time Status Last Admin Dose Admin Pantoprazole Sodium (Protonix IV Bolus/Drip) 1 ea NOW STAT IV 06/15/17 12:56 06/15/17 13:00 DC 06/15/17 12:56 1 EA Sodium Chloride 500 ml @ 999 mls/hr Q31M STAT IV 06/15/17 12:56 06/15/17 13:26 DC 06/15/17 13:31 999 MLS/HR Pantoprazole Sodium 80 mg/ Dextrose 120 ml @ 480 mls/hr 1315 IV 06/15/17 13:15 06/15/17 13:29 DC 06/15/17 13:31 480 MLS/HR Pantoprazole Sodium 40 mg/ Dextrose 100 ml @ 20 mls/hr Q5H IV 06/15/17 13:30 06/15/17 18:29 DC 06/15/17 13:32 20 MLS/HR ECG Indication: other (GI bleeding) Rate (beats per minute): 59 Rhythm: sinus bradycardia Findings: no acute ischemic change, no ectopy ED Course 1253: The patient was evaluated in room B03B. A complete history and physical exam was performed. 1256: Ordered Sodium Chloride 500 ml @ 999 mls/hr IV, Pantoprazole Sodium 1 each IV. 1315: Ordered Pantoprazole Sodium 80 mg/ Dextrose 120 ml @ 480 mls/hr IV. 1330: Ordered Pantoprazole Sodium 40 mg/ Dextrose 100 ml @ 20 mls/hr IV. 1426: I reevaluated the patient and updated him on his results. I discussed the treatment plan, which he agrees to. The patient will be further evaluated. 1428: I discussed the patients case with Dr. Marrero, [facility] Hospitalist. He understands the patients condition and agrees to accept the patient. The patient will be further evaluated. 1449: Dr. Marrero informed me that he would like a GI consult. I paged GI. 1458: I discussed the patients case with Dr. Juan, [facility] Medical Decision The patient is a 66 year old male who presents to the Emergency Room with complaints of constant black stools in his bag that began three days ago.. Differential diagnoses considered include upper GI bleeding, anemia, gastritis or ulcer, lower GI bleeding, dehydration, and electrolyte imbalance. There is a significant leukocytosis at 20,000, the patient carries a history of a high white count but today's value is slightly higher than his norm. He is anemic with a hemoglobin of 9, this is a drop for him. Platelet count markedly elevated but it seems baseline looking back at previous testing. No significant electrolyte abnormality or kidney failure. There is no hepatitis or pancreatitis. No coagulopathy. The patient was given a bolus of IV Protonix and was placed on a Protonix drip. He was given IV saline. I spoke with the patient. I did discuss the case with the on-call GI doctor. The patient requires a hospital stay. It was felt that he could stay at our facility. I did speak with geriatric case manager. The on-call hospitalist was consulted. Based on a look of his stool, I suspect upper GI bleeding. Medication Reconcilliation Current Medication List: was personally reviewed by me Blood Pressure Screening Patient's blood pressure: Normal blood pressure Consults Time Called: [id number] Consulting Physician: Dr. Marrero [facility] Hospitalist Returned Call: [phone] I discussed the patients case with Dr. Marrero [facility] Hospitalist. He understands the patients condition and agrees to accept the patient. The patient will be further evaluated. Additional Consults: Time Called: 1449 Consulted Physician: Dr. Marrero [facility] Hospitalist Returned Call: [phone] Additional Comments: Dr. Marrero informed me that he would like a GI consult. Time Called: 1449 Consulted Physician: Dr. Juan, [facility] Returned Call: 1457 Additional Comments: I discussed the patients case with Dr. Juan, [facility]. Impression Primary Impression: GI bleed Additional Impressions: Anemia Elevated platelet count Leukocytosis Scribe Attestation The scribe's documentation has been prepared under my direction and personally reviewed by me in its entirety. I confirm that the note above accurately reflects all work, treatment, procedures, and medical decision making performed by me. Departure Information Dispostion Being Evaluated By Hospitalist Referrals Chino Abdul MD (PCP) Patient Instructions My [facility] Problem Qualifiers
[2017-06-15] MEDS ORDERED: PANTOprazole INJ 80 MG in DEXTROSE 5% 100ML IV SCH (13:15)
[2017-06-15 13:26] LABS: HEMATOCRIT 29.8 % (42-52); HEMOGLOBIN 9.4 g/dL (14.0-18.0); MEAN CELL VOLUME 94.9 fL (80-100); MEAN CORPUSCULAR HEMOGLOBIN 29.9 pg (25-34); MEAN CORPUSCULAR HGB CONC 31.5 g/dl (32-36); MEAN PLATELET VOLUME 9.8 fL (7.4-10.4); NUCLEATED RED BLOOD CELL ABS 0.09 K/uL (0-0); PLATELET COUNT 1472 K/uL (130-400); RED CELL DISTRIBUTION WIDTH CV 17.1 % (11.5-14.5); RED CELL DISTRIBUTION WIDTH SD 58.6 fL (36.4-46.3); WHITE BLOOD COUNT 20.01 K/uL (4.8-10.8)
[2017-06-15] MEDS ORDERED: PANTOprazole INJ 40 MG in DEXTROSE 5% 100ML IV SCH (13:30)
[2017-06-15 13:31] LABS: INR 1.1 (0.9-1.1); PTT PATIENT 28.8 SECONDS (21.0-31.0)
[2017-06-15] MEDS ORDERED: ASPI81TA28 PO (13:35)
[2017-06-15] MEDS ORDERED: DOCU-94 PO (13:35)
[2017-06-15 13:39] LABS: ALBUMIN 3.1 gm/dl (3.4-5.0); ALT/SGPT 29 U/L (12-78); BLOOD UREA NITROGEN 20 mg/dl (7-18); CALCIUM 8.6 mg/dl (8.5-10.1); CARBON DIOXIDE 31 mmol/L (21-32); CREATININE 0.85 mg/dl (0.60-1.40); GLUCOSE 130 mg/dl (70-99); LIPASE 88 U/L (73-393); POTASSIUM 3.9 mmol/L (3.5-5.1); SODIUM 142 mmol/L (136-145)
[2017-06-15] MEDS ORDERED: CARB25TA12 PO (13:40)
[2017-06-15 13:41] LABS: ALKALINE PHOSPHATASE 214 U/L (45-117); AST/SGOT 23 U/L (15-37); TOTAL PROTEIN 6.3 gm/dl (6.4-8.2)
[2017-06-15 14:01] LABS: BASO % 1.1 %; BASO ABS # 0.22 K/uL (0-0.2); EOS % 7.1 %; EOS ABS # 1.43 K/uL (0-0.5); IG# 0.13 K/uL (0.00-0.02); LYMPH % 15.9 %; LYMPH ABS # 3.18 K/uL (1.2-3.4); MONO % 5.6 %; MONO ABS # 1.13 K/uL (0.11-0.59); NEUT % 69.7 %; NEUT ABS # 13.92 K/uL (1.4-6.5)
--- NOTE | 2017-06-15 14:37 | History and Physical ---
History & Physical Date & Time of Service: Jun 15, 2017 at 14:30 Chief Complaint: Bleeding Primary Care Physician: Chino Abdul MD History of Present Illness Source: patient 66 y/o M Hx HTN, tremor, distal pancreatectomy and splenectomy 10/31 due to chronic pancreatitis and a splenic artery aneurysm. Pt has a colostomy ( transverse colon to abdominal wall), as a result of surgical complications. Reports intermittent black stool filling the colostomy bag over the past 3 days which is now persistent. He denies any nausea, vomiting, abdominal pain or fever. Denies SOB, CP or lightheadedness. Initial labs are consistent with an acute upper GI bleed. Past Medical/Surgical History 1) Hypertension 2) Melanoma 3) Pancreatitis - recurrent - leading to a distal pancreatectomy and splenectomy at [facility] 10/31 4) Depression 5) History of Sacral Decubitus Ulcer with MRSA 6) Tremor - undergoing work-up - Parkinson disease vs essential tremor 7) Thrombocytosis - result of splenectomy Surgical: 1) History of back surgery 2) Cholecystectomy 3) Colon resection 4) Splenic Artery aneurysm - splenectomy 5) Distal Pancreatectomy 6) Abdominal wall fistula/colostomy - transverse colon to abdominal wall - scheduled for repair and reanastomosis 07/04 Family History FH: cancer FH: gallbladder disease FH: heart disease Hypertension Social History Smoking Status: Never Smoker Drug Use: none Marital Status: Housing status: lives with family Occupational Status: retired Multi-Drug Resistant Organisms History of MDRO: Yes Type of MDRO: MRSA Allergies Coded Allergies: No Known Allergies (Unverified , 05/04/17) Home Medications Scheduled Aspirin (Aspirin Ec), 81 MG PO DAILY Carbidopa/Levodopa (Sinemet 25MG/100MG), 2 TAB PO TID Clonazepam (Klonopin), 0.5 MG PO DAILY@2130 Docusate Sodium (Colace), 1 CAP PO BID Escitalopram (Lexapro), 10 MG PO DAILY Omeprazole (Prilosec), 20 MG PO DAILY Primidone (Mysoline), 75 MG PO QPM Propranolol Hcl (Propranolol ER), 60 MG PO DAILY Review of Systems Constitutional: + weakness (chronic since surgery), + problem reported, No fever, No chills, No sweats Eyes: No worsening of vision ENT: No hearing loss, No unusual epistaxis, No nasal symptoms Respiratory: No cough Cardiovascular: No chest pain, No orthopnea Abdomen: + GI bleeding, No pain, No nausea, No vomiting Musculoskeletal: No joint pain Genitourinary - Male: No hematuria, No dysuria Neurologic: No memory loss, No paralysis, No weakness Psychiatric: No depression symptoms Endocrine: No fatigue Hematologic / Lymphatic: + abnormal bleeding/bruising Integumentary: No rash Physical Exam Vital Signs Date Time Temp Pulse Resp B/P (MAP) Pulse Ox O2 Delivery O2 Flow Rate FiO2 06/15/17 14:07 54 20 119/60 92 Room Air 06/15/17 13:24 36.8 59 18 103/55 97 Room Air 06/15/17 13:23 58 06/15/17 12:52 36.8 70 18 100/84 97 Room Air 06/15/17 12:51 97 Room Air 06/15/17 12:34 36.8 63 18 105/68 100 General Appearance: WD/WN, + pertinent finding (Thin, middle-aged male in no distress) Head: normocephalic Eyes: normal inspection ENT: normal ENT inspection, pharynx normal Neck: supple, no JVD Respiratory/Chest: chest non-tender, lungs clear, normal breath sounds Cardiovascular: regular rate, rhythm, no edema, no gallop Abdomen/GI: non tender, soft, + pertinent finding (Functional colostomy bag filled with formed black stool) Back: normal inspection, no CVA tenderness Extremities/Musculoskelatal: normal inspection, no calf tenderness, normal capillary refill Neurologic/Psych: foam caster II-XII nml as tested, no motor/sensory deficits, alert, oriented x 3 Skin: normal color, warm/dry Diagnostics Laboratory Results Results Past 24 Hours Test 06/15/17 13:06 Range/Units White Blood Count 20.01 4.8-10.8 K/uL Red Blood Count 3.14 4.7-6.1 M/uL Hemoglobin 9.4 14.0-18.0 g/dL Hematocrit 29.8 42-52 % Mean Corpuscular Volume 94.9 80-100 fL Mean Corpuscular Hemoglobin 29.9 25-34 pg Mean Corpuscular Hemoglobin Concent 31.5 32-36 g/dl Platelet Count 1472 130-400 K/uL Mean Platelet Volume 9.8 7.4-10.4 fL Neutrophils (%) (Auto) 69.7 % Lymphocytes (%) (Auto) 15.9 % Monocytes (%) (Auto) 5.6 % Eosinophils (%) (Auto) 7.1 % Basophils (%) (Auto) 1.1 % Neutrophils # (Auto) 13.92 1.4-6.5 K/uL Lymphocytes # (Auto) 3.18 1.2-3.4 K/uL Monocytes # (Auto) 1.13 0.11-0.59 K/uL Eosinophils # (Auto) 1.43 0-0.5 K/uL Basophils # (Auto) 0.22 0-0.2 K/uL RDW Standard Deviation 58.6 36.4-46.3 fL RDW Coefficient of Variation 17.1 11.5-14.5 % Immature Granulocyte % (Auto) 0.6 % Immature Granulocyte # (Auto) 0.13 0.00-0.02 K/uL Nucleated RBC Absolute Count (auto) 0.09 0-0 K/uL Nucleated Red Blood Cells % 0.4 % Platelet Estimate INCREASED Target Cells 1+ [place] Bodies OCCASIONAL Prothrombin Time 11.4 9.0-12.0 SECONDS Prothromb Time International Ratio 1.1 0.9-1.1 Activated Partial Thromboplast Time 28.8 21.0-31.0 SECONDS Partial Thromboplastin Ratio 1.1 Sodium Level 142 136-145 mmol/L Potassium Level 3.9 3.5-5.1 mmol/L Chloride Level 106 98-107 mmol/L Carbon Dioxide Level 31 21-32 mmol/L Anion Gap 5.0 3-11 mmol/L Blood Urea Nitrogen 20 7-18 mg/dl Creatinine 0.85 0.60-1.40 mg/dl Est Creatinine Clear Calc Drug Dose 83.8 ml/min Estimated GFR () 106.0 Estimated GFR (Non- 91.4 BUN/Creatinine Ratio 23.6 10-20 Random Glucose 130 70-99 mg/dl Calcium Level 8.6 8.5-10.1 mg/dl Total Bilirubin 0.3 0.2-1 mg/dl Direct Bilirubin < 0.1 0-0.2 mg/dl Aspartate Amino Transf (AST/SGOT) 23 15-37 U/L Alanine Aminotransferase (ALT/SGPT) 29 12-78 U/L Alkaline Phosphatase 214 45-117 U/L Total Protein 6.3 6.4-8.2 gm/dl Albumin 3.1 3.4-5.0 gm/dl Lipase 88 73-393 U/L Impression Assessment and Plan 66 y/o M Hx distal pancreatectomy and splenectomy 10/31 due to chronic pancreatitis and a splenic artery aneurysm. Pt has a colostomy (transverse colon to abdominal wall), as a result of surgical complications. Reports intermittent black stool filling the colostomy bag over the past 3 days which is now persistent. He denies any nausea, vomiting, abdominal pain or fever. Denies SOB, CP or lightheadedness. Initial labs are consistent with an acute upper GI bleed. 1) Upper GI bleed - pt to be evaluated by GI - placed on a PPi - transfusion request obtained and will trend Hb. Considering pt's recent surgery and resultant anatomical alterations, there is a possibility that he will need transfer to a tertiary center if a bleed site cannot be identified and bleeding cannot be contained. 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 3) HTN - cont Propranolol - adjunctive in treating his tremor as well 4) Regarding his fistula/colostomy - he states that surgery is planned to reverse this 07/04 - is he requires transfer, it may be prudent to expedite the procedure although this will not be to our discretion. 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 Leukocytosis is likely reactive as well - no evidence of active infection. Full code - SCDs Total time for this admit including review of labs, meds, imaging, records - discussion with pt and ER attending - 40 min Level of Care Med/Surg Resuscitation Status FULL RESUSCITATION VTE Prophylaxis Risk Level: Low Given or contraindicated: SCD's
[2017-06-15] MEDS ORDERED: ONDANSETRON INJ 2 MG/ML 2 ML VIAL IV PRN ×2 (15:30→17:15)
[2017-06-15] MEDS ORDERED: ACETAMINOPHEN 325 MG TAB PO PRN (15:30)
--- NOTE | 2017-06-15 16:23 | Gastrointestinal Consultation ---
Gastrointestinal Consultation Date of Consultation: Jun 15, 2017 Attending Physician: DR Ovidio Marrero Consulting Physician: Dr Bernardo Weeks Reason for Consultation: Melena History of Present Illness Patient is a 66 year old male with CC of black stools. with patient for H and P. HPI On review of [facility] pt been seen by [facility] before most recently for admissstion 02/2017 for fever of unknown origin but possibly GI. 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 Pt had Hgb 14.3 03/2017 and in ER today 9.4. He has bms out of ostomy as well as rectum. He has had intermittent black stools for month of so but over last 3 days all stools black and now loose. Some fatigue and weakness but he has that at basline since surgery so it is hard for him to tell. No f/c, no n/v , no abd pain. Has GERD and is on PPI daily for that. Also on baby ASA for high platelets. Most recent EGD in chart 06/2016 showed stent in ampulla removed and gastrostomy tube in stomach. Pt thinks he had connection of pancreas to jejunum. Pt states he has good appetite and has gained about 40 lbs since surgery. No peptobismol use to explain black stools. Past Medical/Surgical History Medical Problems: (1) Anemia Status: Acute (2) Asplenia Status: Acute (3) Cyst of pancreas Status: Acute (4) Elevated platelet count Status: Acute (5) Fever Status: Acute (6) Fever Status: Acute (7) GI bleed Status: Acute (8) Intra-abdominal abscess Status: Acute (9) Lactic acidosis Status: Acute (10) Leukocytosis Status: Acute (11) Leukocytosis Status: Acute (12) Occluded PICC line Status: Acute (13) Occluded PICC line Status: Acute (14) Pancreatitis Status: Acute (15) Pancreatitis Status: Acute (16) Pancreatitis Status: Acute (17) Sepsis Status: Acute (18) SIRS (systemic inflammatory response syndrome) Status: Acute (19) Swelling of right upper extremity Status: Acute Family History FH: cancer FH: gallbladder disease FH: heart disease Hypertension Social History Smoking Status: Never Smoker Alcohol Use: none Drug Use: none Marital Status: Housing Status: lives with significant other Occupation Status: retired Allergies Coded Allergies: No Known Allergies (Unverified , 05/04/17) Current Medications Home Meds and Scripts Medications Dose Route/Sig Max Daily Dose Days Date Category Sinemet 25MG/100MG (Carbidopa/Levodopa) Tab 2 Tab PO TID 06/15/17 Reported Colace (Docusate Sodium) 100 Mg Cap 1 Cap PO BID 30 06/15/17 Reported Aspirin Ec (Aspirin) 81 Mg Tab 81 Mg PO DAILY 06/15/17 Reported Mysoline (Primidone) 50 Mg Tab 75 Mg PO QPM 03/12/17 Reported Lexapro (Escitalopram Oxalate) 10 Mg Tab 10 Mg PO DAILY 03/12/17 Reported Propranolol ER (Propranolol Hcl) 60 Mg Capcr 60 Mg PO DAILY 03/12/17 Reported Prilosec (Omeprazole) 20 Mg Capcr 20 Mg PO DAILY 07/24/16 Reported Klonopin (Clonazepam) 0.5 Mg Tab 0.5 Mg PO DAILY@2130 04/25/16 Reported Review of Systems See HPI and other 10 ROS negative Physical Exam Date Time Temp Pulse Resp B/P (MAP) Pulse Ox O2 Delivery O2 Flow Rate FiO2 06/15/17 14:07 54 20 119/60 92 Room Air 06/15/17 13:24 36.8 59 18 103/55 97 Room Air 06/15/17 13:23 58 06/15/17 12:52 36.8 70 18 100/84 97 Room Air 06/15/17 12:51 97 Room Air 06/15/17 12:34 36.8 63 18 105/68 100 General Appearance: WD/WN, no apparent distress Eyes: normal inspection, PERRL ENT: hearing grossly normal, pharynx normal Neck: supple, trachea midline Respiratory/Chest: lungs clear, no respiratory distress Cardiovascular: regular rate, rhythm, no edema Abdomen: normal bowel sounds, non tender, soft, no organomegaly, no pulsatile mass, + pertinent finding (ostomy noted with black liquid stool) Neurologic/Psych: harness puller II-XII nml as tested, no motor/sensory deficits, normal mood/affect, oriented x 3 Skin: normal color, no jaundice Laboratory Results Last 24 Hours Test 06/15/17 13:06 White Blood Count 20.01 K/uL Red Blood Count 3.14 M/uL Hemoglobin 9.4 g/dL Hematocrit 29.8 % Mean Corpuscular Volume 94.9 fL Mean Corpuscular Hemoglobin 29.9 pg Mean Corpuscular Hemoglobin Concent 31.5 g/dl Platelet Count 1472 K/uL Mean Platelet Volume 9.8 fL Neutrophils (%) (Auto) 69.7 % Lymphocytes (%) (Auto) 15.9 % Monocytes (%) (Auto) 5.6 % Eosinophils (%) (Auto) 7.1 % Basophils (%) (Auto) 1.1 % Neutrophils # (Auto) 13.92 K/uL Lymphocytes # (Auto) 3.18 K/uL Monocytes # (Auto) 1.13 K/uL Eosinophils # (Auto) 1.43 K/uL Basophils # (Auto) 0.22 K/uL RDW Standard Deviation 58.6 fL RDW Coefficient of Variation 17.1 % Immature Granulocyte % (Auto) 0.6 % Immature Granulocyte # (Auto) 0.13 K/uL Nucleated RBC Absolute Count (auto) 0.09 K/uL Nucleated Red Blood Cells % 0.4 % Platelet Estimate INCREASED Target Cells 1+ [place] Bodies OCCASIONAL Prothrombin Time 11.4 SECONDS Prothromb Time International Ratio 1.1 Activated Partial Thromboplast Time 28.8 SECONDS Partial Thromboplastin Ratio 1.1 Sodium Level 142 mmol/L Potassium Level 3.9 mmol/L Chloride Level 106 mmol/L Carbon Dioxide Level 31 mmol/L Anion Gap 5.0 mmol/L Blood Urea Nitrogen 20 mg/dl Creatinine 0.85 mg/dl Est Creatinine Clear Calc Drug Dose 83.8 ml/min Estimated GFR () 106.0 Estimated GFR (Non- 91.4 BUN/Creatinine Ratio 23.6 Random Glucose 130 mg/dl Calcium Level 8.6 mg/dl Total Bilirubin 0.3 mg/dl Direct Bilirubin < 0.1 mg/dl Aspartate Amino Transf (AST/SGOT) 23 U/L Alanine Aminotransferase (ALT/SGPT) 29 U/L Alkaline Phosphatase 214 U/L Total Protein 6.3 gm/dl Albumin 3.1 gm/dl Lipase 88 U/L Impression Melena--suspect UGI bleeding. Disussed EGD versus watch and wait. He is agreeable to EGD. He ate last at 1030 am so will proceed with scope today. Procedure and risks explained to patient and which include but not limited to med reaction, bleeding, perforation, or aspiration. Continue PPI for possible PUD. Could have anastomotic ulcer also and may need to do push enteroscopy if nothing seen with regular EGD scope. acute blood loss anemia--follow H and H and transfuse prn TC to skin fistula--eventual surgery at [facility]--is currently set up for 07/04/16. s/p pancreatectomy for chronic pancreatitis s/p splenectomy elevated WBC 20--but high at baseline 15.4 on 03/2017--no fever to indicate infection, suspect stress and s/p splenectomy elev plts--explained by splenectomy
[2017-06-15] MEDS ORDERED: LABETALOL HCL IV 5 MG/ML 20ML IV PRN (17:15)
[2017-06-15] MEDS ORDERED: FLUMAZENIL 0.1 MG/1 ML 10 ML VIAL IV PRN (17:15)
[2017-06-15] MEDS ORDERED: ATROPINE SULFATE 0.1 MG/ML 5ML SYR IV PRN (17:15)
[2017-06-15] MEDS ORDERED: HYDROmorphone INJ 2 MG/ML SYR/VIAL IV PRN (17:15)
[2017-06-15] MEDS ORDERED: PHENYLEPHRINE 100MCG/ML 5ML SYR IV PRN (17:15)
[2017-06-15] MEDS ORDERED: EpHEDrine SULFATE INJ 50 MG/ML AMP IV PRN (17:15)
[2017-06-15] MEDS ORDERED: NALOXONE HCL 0.4 MG/1 ML VIAL/CARP IV PRN (17:15)
[2017-06-15] MEDS ORDERED: MEPERIDINE HCL 25 MG/ML CARP IV PRN (17:15)
[2017-06-15] MEDS ORDERED: LIDOCAINE HCL 2% 2 ML VIAL (20MG/ML) ONE ×2 (17:16→17:26)
[2017-06-15] MEDS ORDERED: PROPOFOL IV EMULSION 10 MG/ML 20 ML VIAL IV ONE ×2 (17:16→17:39)
[2017-06-15] MEDS ORDERED: ONDANSETRON INJ 2 MG/ML 2 ML VIAL ONE (17:30)
--- NOTE | 2017-06-15 17:40 | NUR ---
Patient to be going to OR before going to room; spoke with Nina Beckham RN regarding admission nursing documentation; she will complete what I was unable to finish when pt arrives to floor.
[2017-06-15] MEDS ORDERED: GLYCOPYRROLATE INJ 0.2 MG/ML VIAL ONE (17:42)
[2017-06-15] MEDS: FENTANYL CITRATE INJ 50 MCG/1 ML 2 ML VIAL IV PRN ×4 (18:01→18:20)
[2017-06-15] MEDS ORDERED: FENTANYL CITRATE INJ 50 MCG/1 ML 2 ML VIAL ONE (18:01)
--- NOTE | 2017-06-15 18:07 | GI REPORT ---
Procedure Date: 06/15/2017 5:01 PM Procedure: Upper GI endoscopy Indications: Melena Medicines: Monitored Anesthesia Care Complications: No immediate complications. Estimated blood loss: Minimal. Estimated Blood Loss: Estimated blood loss was minimal. Procedure: Pre-Anesthesia Assessment: - The risks and benefits of the procedure and the sedation options and risks were discussed with the patient. All questions were answered and informed consent was obtained. - Patient identification and proposed procedure were verified prior to the procedure by the physician, the nurse, the anesthesiologist and the welt stitch cleaner. The procedure was verified in the procedure room. - Procedure and risks explained to patient which include but not limited to medication reaction, bleeding, perforation, aspiration , and missed lesions. Judicious gas insufflation was used and gas removal done on the way out. The lumen was always visualized when advancing the scope. Prep was good. Washes and suctioning used as needed to get good visualization of the mucosa. Retroflexion to look at the fundus and cardia of the stomach and GE junction was done. After obtaining informed consent, the endoscope was passed under direct vision. Throughout the procedure, the patient's blood pressure, pulse, and oxygen saturations were monitored continuously. The Scope was introduced through the mouth, and advanced to the second part of duodenum. The upper GI endoscopy was accomplished without difficulty. The patient tolerated the procedure fairly well. He was very sensitive to scope manipulation and insufflation getting bradycardic but would rapidly recover. Findings: Esophagogastric landmarks were identified: the Z-line was found at 42 cm from the incisors. The esophagus was normal. Patchy mildly erythematous mucosa was found at the pylorus. Red blood was found in the second portion of the duodenum. Estimated blood loss was minimal. One oozing superficial duodenal ulcer with oozing hemorrhage (Anmol Class Ib) was found in the second portion of the duodenum. The lesion was 2 mm in largest dimension. Area was successfully injected with 3 mL of a 1:10,000 solution of epinephrine for hemostasis. Coagulation for bleeding prevention using bipolar probe caused intial oozing but then was successful. As an additional precaution to prevent bleeding,, one hemostatic clip was successfully placed (MR conditional). There was no bleeding during the maneuver or after. . No blood noted in the esophagus or stomach. Did not appreciate any post surgical changes but did not investigate extensively the duodenum post bulb because patient did not tolerate and had a bleeding source to deal with which could explain the melena. Impression: - Esophagogastric landmarks identified. - Normal esophagus. - Erythematous mucosa in the pylorus. - Blood in the second portion of the duodenum. - One oozing duodenal ulcer with oozing hemorrhage (Anmol Class Ib). Injected. Treated with bipolar cautery. Clip (MR conditional) was placed. - No specimens collected. Recommendation: - [facility]. - Clear liquid diet. - Continue IV PPI for now. - Check stool for H.pylori. Bernardo Weeks M.D. Bernardo Weeks MD 06/15/2017 6:06:52 PM This report has been signed electronically. Note Initiated On: 06/15/2017 5:01 PM I attest to the content of the Intraoperative Record and orders documented therein, exceptions below
--- NOTE | 2017-06-15 18:14 | Anesthesiology Progress Note ---
Anesthesia Post Op Note Date & Time Jun 15, 2017 at 18:14 Vital Signs Pain Intensity: 1 Vital Signs Past 12 Hours Date Time Temp Pulse Resp B/P (MAP) Pulse Ox O2 Delivery O2 Flow Rate FiO2 06/15/17 18:10 77 16 134/66 96 Nasal Cannula 2 06/15/17 18:00 75 16 126/70 95 Nasal Cannula 2 06/15/17 17:50 36.9 77 16 108/67 99 Oxymask 7 06/15/17 16:46 59 18 115/60 93 06/15/17 16:00 59 18 126/65 93 Room Air 06/15/17 14:07 54 20 119/60 92 Room Air 06/15/17 13:24 36.8 59 18 103/55 97 Room Air 06/15/17 13:23 58 06/15/17 12:52 36.8 70 18 100/84 97 Room Air 06/15/17 12:51 97 Room Air 06/15/17 12:34 36.8 63 18 105/68 100 Notes Mental Status: alert / awake / arousable, participated in evaluation Pt Amnestic to Procedure: Yes Nausea / Vomiting: adequately controlled Pain: adequately controlled Airway Patency, RR, SpO2: stable & adequate BP & HR: stable & adequate Hydration State: stable & adequate Anesthetic Complications: no major complications apparent
--- NOTE | 2017-06-15 18:20 | Progress Note ---
Progress Note Date of Service Jun 15, 2017. Progress Note Pt awake and alert post op. Complained of 8/10 abd pain post procedure and given medication for that now 5/10. He appears comfortable. Abdomen exam soft, positive bowel sounds, no guarding nor rebound. Went over results of procedure with patient in recovery and his on phone. Discussed hopefully pain from gas insufflation and/or cautery and/or epinephrine injection. No evidence clinically of perforation. Will make NPO for now, however. If no further evidence of bleeding would still keep until saturday as highest risk of rebleeding in first 48-72 hours post intervention.
[2017-06-15] MEDS: PANTOprazole INJ 40 MG in DEXTROSE 5% 100ML IV SCH (20:22)
[2017-06-15] MEDS: D5NSS + 20MEQ KCL 1,000 ML IV SCH (20:26)
[2017-06-15] MEDS: DOCUSATE SODIUM 100 MG CAP PO SCH (20:27)
[2017-06-15] MEDS: PRIMIDONE 50 MG TAB PO SCH (20:28)
[2017-06-15] MEDS: CARBIDOPA/LEVODOPA 25/100MG TAB PO SCH (20:29)
[2017-06-15] MEDS: CLONAZEPAM 0.5 MG TAB PO SCH (21:36)
[2017-06-16] VITALS (7 sets, daily range): BP systolic 103–157; BP diastolic 64–80; PULSE 51–66; TEMP 36.3–37.1; O2SAT 91–100
[2017-06-16] MEDS: PANTOprazole INJ 40 MG in DEXTROSE 5% 100ML IV SCH ×5 (00:06→21:22)
--- NOTE | 2017-06-16 01:37 | NUR ---
ID Note: patient resting in bed. alert and oriented x4. no complaints of pain at this time. IVF infusing as ordered. lungs clear on RA, c/o nonproductive dry cough, denies shortness of breath or chest pain. hypo bowel sounds, denies flatus, tolerating clear liquid diet. pulses palpable, denies numbness/tingling. oob with 1 assist. discharge uncertain at this time. call [facility] in reach. will continue to monitor.
[2017-06-16 04:27] LABS: ALBUMIN 2.9 gm/dl (3.4-5.0); CALCIUM 8.5 mg/dl (8.5-10.1); CREATININE 0.77 mg/dl (0.60-1.40); POTASSIUM 3.6 mmol/L (3.5-5.1)
[2017-06-16 04:34] LABS: HEMATOCRIT 28.9 % (42-52); HEMOGLOBIN 9.1 g/dL (14.0-18.0); MEAN CELL VOLUME 95.4 fL (80-100); MEAN CORPUSCULAR HGB CONC 31.5 g/dl (32-36); MEAN PLATELET VOLUME 10.1 fL (7.4-10.4); PLATELET COUNT 1420 K/uL (130-400); RED CELL DISTRIBUTION WIDTH CV 17.2 % (11.5-14.5); RED CELL DISTRIBUTION WIDTH SD 59.1 fL (36.4-46.3); WHITE BLOOD COUNT 19.66 K/uL (4.8-10.8)
[2017-06-16 05:09] LABS: BASO % 1.1 %; BASO ABS # 0.22 K/uL (0-0.2); EOS % 9.8 %; EOS ABS # 1.93 K/uL (0-0.5); IG# 0.15 K/uL (0.00-0.02); LYMPH % 24.7 %; LYMPH ABS # 4.86 K/uL (1.2-3.4); MONO % 7.9 %; MONO ABS # 1.55 K/uL (0.11-0.59); NEUT % 55.7 %; NEUT ABS # 10.95 K/uL (1.4-6.5)
[2017-06-16] MEDS: PROPRANOLOL HCL 60 MG LA CAP PO SCH (08:33)
[2017-06-16] MEDS: ESCITALOPRAM OXALATE 10 MG TAB PO SCH (08:33)
[2017-06-16] MEDS: CARBIDOPA/LEVODOPA 25/100MG TAB PO SCH ×3 (08:33→21:20)
[2017-06-16] MEDS: DOCUSATE SODIUM 100 MG CAP PO SCH ×2 (08:34→21:20)
[2017-06-16] MEDS: D5NSS + 20MEQ KCL 1,000 ML IV SCH (08:37)
[2017-06-16] MEDS ORDERED: NON-FORMULARY MEDICATION (Omeprazole (Prilosec) 20 MG) PO SCH (09:00)
--- NOTE | 2017-06-16 13:06 | Progress Note ---
Subjective Date of Service: Jun 16, 2017. Subjective Pt evaluation today including: conversation w/ patient, conversation w/ family (), physical exam, lab review, conversation w/ nursing consultant, review of inpatient medication list Pain: no pain PO Intake: clears Voiding: no voiding problems patient feeling well, no epigastric pain, no nausea, no vomiting, tolerating clears reviewed labs, Hb up to 9.1 discussed EGD results with duodenal ulcer Problem List Medical Problems: (1) Anemia Status: Acute (2) Asplenia Status: Acute (3) Cyst of pancreas Status: Acute (4) Elevated platelet count Status: Acute (5) Fever Status: Acute (6) Fever Status: Acute (7) GI bleed Status: Acute (8) Intra-abdominal abscess Status: Acute (9) Lactic acidosis Status: Acute (10) Leukocytosis Status: Acute (11) Leukocytosis Status: Acute (12) Occluded PICC line Status: Acute (13) Occluded PICC line Status: Acute (14) Pancreatitis Status: Acute (15) Pancreatitis Status: Acute (16) Pancreatitis Status: Acute (17) Sepsis Status: Acute (18) SIRS (systemic inflammatory response syndrome) Status: Acute (19) Swelling of right upper extremity Status: Acute Review of Systems All Other Systems: Reviewed and Negative Medications Current Inpatient Medications Medications (Trade) Dose Ordered Sig/Pio Route Start Time Stop Time Status Last Admin Dose Admin Carbidopa/Levodopa (Sinemet 25/ 100MG Tab) 2 tab TID PO 06/15/17 21:00 07/15/17 20:59 06/16/17 08:33 2 TAB Clonazepam (Klonopin Tab) 0.5 mg DAILY@2130 PO 06/15/17 21:30 07/15/17 21:29 06/15/17 21:36 0.5 MG Docusate Sodium (coLACE CAP) 100 mg BID PO 06/15/17 21:00 07/15/17 20:59 06/16/17 08:34 100 MG Escitalopram Oxalate (Lexapro Tab) 10 mg DAILY PO 06/16/17 09:00 07/16/17 08:59 06/16/17 08:33 10 MG Primidone (Mysoline Tab) 75 mg QPM PO 06/15/17 21:00 07/15/17 20:59 06/15/17 20:28 75 MG Propranolol HCl (Inderal La Cap) 60 mg DAILY PO 06/16/17 09:00 07/16/17 08:59 06/16/17 08:33 60 MG Acetaminophen (Tylenol Tab) 650 mg Q4H PRN PO 06/15/17 15:30 07/15/17 15:29 Ondansetron HCl (Zofran Inj) 4 mg Q6H PRN IV 06/15/17 15:30 07/15/17 15:29 Potassium Chloride/Dextrose/ Sod Cl 1,000 ml @ 80 mls/hr [id number] IV 06/15/17 20:00 06/16/17 20:59 06/16/17 08:37 80 MLS/HR Pantoprazole Sodium 40 mg/ Dextrose 100 ml @ 20 mls/hr Q5H IV 06/15/17 19:45 07/15/17 19:44 06/16/17 10:35 20 MLS/HR Objective Vital Signs Date Time Temp Pulse Resp B/P (MAP) Pulse Ox O2 Delivery O2 Flow Rate FiO2 06/16/17 11:30 52 18 100 Room Air 06/16/17 08:31 66 138/76 (96) 06/16/17 07:28 36.5 53 18 145/80 (101) 95 Nasal Cannula 2.0 06/16/17 07:07 Nasal Cannula 2.0 06/16/17 03:18 36.4 51 16 119/72 (88) 94 Nasal Cannula 2.0 06/16/17 00:10 Nasal Cannula 2.0 06/15/17 23:14 36.5 46 16 112/66 (81) 96 Nasal Cannula 3.0 06/15/17 22:04 36.4 56 18 115/66 (82) 97 Nasal Cannula 3.0 06/15/17 21:40 56 06/15/17 21:05 36.6 107 18 133/77 (95) 96 Nasal Cannula 3.0 06/15/17 20:08 36.7 55 18 119/68 (85) 94 Nasal Cannula 3.0 06/15/17 19:39 36.6 57 18 130/72 (91) 95 Room Air 06/15/17 19:15 93 Nasal Cannula 3.0 06/15/17 19:00 93 Nasal Cannula 3.0 06/15/17 19:00 36.7 59 16 120/65 (83) 93 Nasal Cannula 3.0 06/15/17 18:30 65 16 128/75 95 Nasal Cannula 2 06/15/17 18:20 36.6 68 16 112/73 96 Nasal Cannula 2 06/15/17 18:10 77 16 134/66 96 Nasal Cannula 2 06/15/17 18:00 75 16 126/70 95 Nasal Cannula 2 06/15/17 17:50 36.9 77 16 108/67 99 Oxymask 7 06/15/17 16:56 93 Nasal Cannula 3.0 06/15/17 16:46 59 18 115/60 93 06/15/17 16:00 59 18 126/65 93 Room Air 06/15/17 14:07 54 20 119/60 92 Room Air 06/15/17 13:24 36.8 59 18 103/55 97 Room Air 06/15/17 13:23 58 Physical Exam General Appearance: WD/WN, no apparent distress Eyes: normal inspection, EOMI, sclerae normal ENT: normal ENT inspection, hearing grossly normal, pharynx normal Neck: supple, no adenopathy, no JVD, trachea midline Respiratory/Chest: chest non-tender, lungs clear, normal breath sounds, no respiratory distress, no accessory muscle use Cardiovascular: regular rate, rhythm, no edema, no gallop, no JVD, no murmur Abdomen: normal bowel sounds, non tender, soft, no organomegaly Extremities: normal range of motion, non-tender, normal inspection, no pedal edema, no calf tenderness Neurologic/Psychiatric: process tank tender II-XII nml as tested, no motor/sensory deficits, alert, normal mood/affect, oriented x 3 Skin: normal color, warm/dry, no rash Laboratory Results Last 24 Hours Test 06/15/17 13:06 06/15/17 20:02 06/16/17 00:11 06/16/17 03:37 White Blood Count 20.01 K/uL 19.66 K/uL Red Blood Count 3.14 M/uL 3.03 M/uL Hemoglobin 9.4 g/dL 9.1 g/dL 8.1 g/dL 9.1 g/dL Hematocrit 29.8 % 28.9 % Mean Corpuscular Volume 94.9 fL 95.4 fL Mean Corpuscular Hemoglobin 29.9 pg 30.0 pg Mean Corpuscular Hemoglobin Concent 31.5 g/dl 31.5 g/dl Platelet Count 1472 K/uL 1420 K/uL Mean Platelet Volume 9.8 fL 10.1 fL Neutrophils (%) (Auto) 69.7 % 55.7 % Lymphocytes (%) (Auto) 15.9 % 24.7 % Monocytes (%) (Auto) 5.6 % 7.9 % Eosinophils (%) (Auto) 7.1 % 9.8 % Basophils (%) (Auto) 1.1 % 1.1 % Neutrophils # (Auto) 13.92 K/uL 10.95 K/uL Lymphocytes # (Auto) 3.18 K/uL 4.86 K/uL Monocytes # (Auto) 1.13 K/uL 1.55 K/uL Eosinophils # (Auto) 1.43 K/uL 1.93 K/uL Basophils # (Auto) 0.22 K/uL 0.22 K/uL RDW Standard Deviation 58.6 fL 59.1 fL RDW Coefficient of Variation 17.1 % 17.2 % Immature Granulocyte % (Auto) 0.6 % 0.8 % Immature Granulocyte # (Auto) 0.13 K/uL 0.15 K/uL Nucleated RBC Absolute Count (auto) 0.09 K/uL Nucleated Red Blood Cells % 0.4 % Platelet Estimate INCREASED Target Cells 1+ 1+ [place] Bodies OCCASIONAL OCCASIONAL Prothrombin Time 11.4 SECONDS Prothromb Time International Ratio 1.1 Activated Partial Thromboplast Time 28.8 SECONDS Partial Thromboplastin Ratio 1.1 Sodium Level 142 mmol/L 140 mmol/L Potassium Level 3.9 mmol/L 3.6 mmol/L Chloride Level 106 mmol/L 107 mmol/L Carbon Dioxide Level 31 mmol/L 32 mmol/L Anion Gap 5.0 mmol/L 1.0 mmol/L Blood Urea Nitrogen 20 mg/dl 14 mg/dl Creatinine 0.85 mg/dl 0.77 mg/dl Est Creatinine Clear Calc Drug Dose 83.8 ml/min 92.5 ml/min Estimated GFR () 106.0 110.4 Estimated GFR (Non- 91.4 95.2 BUN/Creatinine Ratio 23.6 17.5 Random Glucose 130 mg/dl 93 mg/dl Calcium Level 8.6 mg/dl 8.5 mg/dl Total Bilirubin 0.3 mg/dl 0.3 mg/dl Direct Bilirubin < 0.1 mg/dl Aspartate Amino Transf (AST/SGOT) 23 U/L 17 U/L Alanine Aminotransferase (ALT/SGPT) 29 U/L 7 U/L Alkaline Phosphatase 214 U/L 196 U/L Total Protein 6.3 gm/dl 6.0 gm/dl Albumin 3.1 gm/dl 2.9 gm/dl Lipase 88 U/L Polychromasia 1+ Hypochromasia PRESENT Globulin 3.1 gm/dl Albumin/Globulin Ratio 0.9 Test 06/16/17 05:51 Assessment and Plan 66 yo male who presented with melena stools in ostomy bag 1) Upper GI bleed - found to have oozing duodenal ulcer treated with epinephrine and clip, Hb stable today, up to 9.1 continue Protonix drip today per GI, high risk for rebleed until 48-72 hours after procedure discussed with him that 48 hours would be tomorrow evening will defer to GI if he can be d/c tomorrow evening or wait until Saturday tolerating clears, will advance to full liquids tonight 2) Tremor - unspecified - 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
--- NOTE | 2017-06-16 14:59 | Gastroenterology Progress Note ---
Progress Note Date of Service: Jun 16, 2017 Subjective Pt evaluation today including: conversation w/ patient, conversation w/ family (), physical exam, chart review, lab review, review of studies, review of inpatient medication list CC f/u GI bleeding HPI Pt denies abd pain. States no stool out ostomy but had black BM per rectum this am. Tolerating clear liquid diet. Review of Systems Respiratory: No shortness of breath Cardiac: No chest pain Medications Current Inpatient Medications Medications (Trade) Dose Ordered Sig/Pio Route Start Time Stop Time Status Last Admin Dose Admin Carbidopa/Levodopa (Sinemet 25/ 100MG Tab) 2 tab TID PO 06/15/17 21:00 07/15/17 20:59 06/16/17 13:31 2 TAB Clonazepam (Klonopin Tab) 0.5 mg DAILY@2130 PO 06/15/17 21:30 07/15/17 21:29 06/15/17 21:36 0.5 MG Docusate Sodium (coLACE CAP) 100 mg BID PO 06/15/17 21:00 07/15/17 20:59 06/16/17 08:34 100 MG Escitalopram Oxalate (Lexapro Tab) 10 mg DAILY PO 06/16/17 09:00 07/16/17 08:59 06/16/17 08:33 10 MG Primidone (Mysoline Tab) 75 mg QPM PO 06/15/17 21:00 07/15/17 20:59 06/15/17 20:28 75 MG Propranolol HCl (Inderal La Cap) 60 mg DAILY PO 06/16/17 09:00 07/16/17 08:59 06/16/17 08:33 60 MG Acetaminophen (Tylenol Tab) 650 mg Q4H PRN PO 06/15/17 15:30 07/15/17 15:29 Ondansetron HCl (Zofran Inj) 4 mg Q6H PRN IV 06/15/17 15:30 07/15/17 15:29 Potassium Chloride/Dextrose/ Sod Cl 1,000 ml @ 80 mls/hr [id number] IV 06/15/17 20:00 06/16/17 20:59 06/16/17 08:37 80 MLS/HR Pantoprazole Sodium 40 mg/ Dextrose 100 ml @ 20 mls/hr Q5H IV 06/15/17 19:45 07/15/17 19:44 06/16/17 10:35 20 MLS/HR Objective Vital Signs Date Time Temp Pulse Resp B/P (MAP) Pulse Ox O2 Delivery O2 Flow Rate FiO2 06/16/17 11:30 52 18 100 Room Air 06/16/17 08:31 66 138/76 (96) 06/16/17 07:28 36.5 53 18 145/80 (101) 95 Nasal Cannula 2.0 06/16/17 07:07 Nasal Cannula 2.0 06/16/17 03:18 36.4 51 16 119/72 (88) 94 Nasal Cannula 2.0 06/16/17 00:10 Nasal Cannula 2.0 06/15/17 23:14 36.5 46 16 112/66 (81) 96 Nasal Cannula 3.0 06/15/17 22:04 36.4 56 18 115/66 (82) 97 Nasal Cannula 3.0 06/15/17 21:40 56 06/15/17 21:05 36.6 107 18 133/77 (95) 96 Nasal Cannula 3.0 06/15/17 20:08 36.7 55 18 119/68 (85) 94 Nasal Cannula 3.0 06/15/17 19:39 36.6 57 18 130/72 (91) 95 Room Air 06/15/17 19:15 93 Nasal Cannula 3.0 06/15/17 19:00 93 Nasal Cannula 3.0 06/15/17 19:00 36.7 59 16 120/65 (83) 93 Nasal Cannula 3.0 06/15/17 18:30 65 16 128/75 95 Nasal Cannula 2 06/15/17 18:20 36.6 68 16 112/73 96 Nasal Cannula 2 06/15/17 18:10 77 16 134/66 96 Nasal Cannula 2 06/15/17 18:00 75 16 126/70 95 Nasal Cannula 2 06/15/17 17:50 36.9 77 16 108/67 99 Oxymask 7 06/15/17 16:56 93 Nasal Cannula 3.0 06/15/17 16:46 59 18 115/60 93 06/15/17 16:00 59 18 126/65 93 Room Air Physical Exam General Appearance: WD/WN, no apparent distress Respiratory/Chest: lungs clear, no respiratory distress Cardiovascular: regular rate, rhythm, no edema Abdomen: normal bowel sounds, non tender, soft, no organomegaly, no pulsatile mass Laboratory Results Last 24 Hours Test 06/15/17 20:02 06/16/17 00:11 06/16/17 03:37 06/16/17 05:51 Hemoglobin 9.1 g/dL 8.1 g/dL 9.1 g/dL White Blood Count 19.66 K/uL Red Blood Count 3.03 M/uL Hematocrit 28.9 % Mean Corpuscular Volume 95.4 fL Mean Corpuscular Hemoglobin 30.0 pg Mean Corpuscular Hemoglobin Concent 31.5 g/dl Platelet Count 1420 K/uL Mean Platelet Volume 10.1 fL Neutrophils (%) (Auto) 55.7 % Lymphocytes (%) (Auto) 24.7 % Monocytes (%) (Auto) 7.9 % Eosinophils (%) (Auto) 9.8 % Basophils (%) (Auto) 1.1 % Neutrophils # (Auto) 10.95 K/uL Lymphocytes # (Auto) 4.86 K/uL Monocytes # (Auto) 1.55 K/uL Eosinophils # (Auto) 1.93 K/uL Basophils # (Auto) 0.22 K/uL RDW Standard Deviation 59.1 fL RDW Coefficient of Variation 17.2 % Immature Granulocyte % (Auto) 0.8 % Immature Granulocyte # (Auto) 0.15 K/uL Polychromasia 1+ Hypochromasia PRESENT Target Cells 1+ [place] Bodies OCCASIONAL Sodium Level 140 mmol/L Potassium Level 3.6 mmol/L Chloride Level 107 mmol/L Carbon Dioxide Level 32 mmol/L Anion Gap 1.0 mmol/L Blood Urea Nitrogen 14 mg/dl Creatinine 0.77 mg/dl Est Creatinine Clear Calc Drug Dose 92.5 ml/min Estimated GFR () 110.4 Estimated GFR (Non- 95.2 BUN/Creatinine Ratio 17.5 Random Glucose 93 mg/dl Calcium Level 8.5 mg/dl Total Bilirubin 0.3 mg/dl Aspartate Amino Transf (AST/SGOT) 17 U/L Alanine Aminotransferase (ALT/SGPT) 7 U/L Alkaline Phosphatase 196 U/L Total Protein 6.0 gm/dl Albumin 2.9 gm/dl Globulin 3.1 gm/dl Albumin/Globulin Ratio 0.9 Assessment and Plan Melena--from duodenal bulb ulcer bleeding--Hgb stable so suspect melenic stool this am old Bleeding DU--s/p thereapeutic intervention--ok for full liquids now. If remains stable could be DCed tomorrow after evening meal. Awaiting stool for H.pylori, Continue IV PPI today and switch to po in am if stable. 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 s/p pancreatectomy for chronic pancreatitis s/p splenectomy elevated WBC --but high at baseline 15.4 on 03/2017--no fever to indicate infection, suspect stress and s/p splenectomy elev plts--explained by splenectomy I am going off service tomorrow 06/17/[address] Valentine is assuming GI care then.
[2017-06-16] MEDS: CLONAZEPAM 0.5 MG TAB PO SCH (21:20)
[2017-06-16] MEDS: PRIMIDONE 50 MG TAB PO SCH (21:21)
[2017-06-17] MEDS: PANTOprazole INJ 40 MG in DEXTROSE 5% 100ML IV SCH ×2 (01:55→06:36)
--- NOTE | 2017-06-17 02:40 | NUR ---
ID: Pt. alert and oriented x4. BP: 157/78. All other vitals WNL. Protonix drip infusing per order. Denies pain. Tolerating Full Liquid diet. Small amount black liquid in colostomy. Ambulating with one assist and walker. Voiding clear yellow in urinal. Discharge plans uncertain at this time.
[2017-06-17 03:20] VITALS: BP 150/87; PULSE 63; TEMP 36.9; O2SAT 91
[2017-06-17 06:42] LABS: HEMOGLOBIN 8.9 g/dL (14.0-18.0); MEAN CELL VOLUME 94.6 fL (80-100); MEAN CORPUSCULAR HEMOGLOBIN 30.1 pg (25-34); MEAN CORPUSCULAR HGB CONC 31.8 g/dl (32-36); MEAN PLATELET VOLUME 10.4 fL (7.4-10.4); NUCLEATED RED BLOOD CELL ABS 0.07 K/uL (0-0); PLATELET COUNT 1381 K/uL (130-400); RED CELL DISTRIBUTION WIDTH CV 17.4 % (11.5-14.5); RED CELL DISTRIBUTION WIDTH SD 59.1 fL (36.4-46.3); WHITE BLOOD COUNT 23.57 K/uL (4.8-10.8)
[2017-06-17 06:49] LABS: BASO % 1.1 %; BASO ABS # 0.26 K/uL (0-0.2); EOS % 8.7 %; EOS ABS # 2.06 K/uL (0-0.5); IG# 0.11 K/uL (0.00-0.02); LYMPH % 14.3 %; LYMPH ABS # 3.38 K/uL (1.2-3.4); MONO % 9.5 %; MONO ABS # 2.23 K/uL (0.11-0.59); NEUT % 65.9 %; NEUT ABS # 15.53 K/uL (1.4-6.5)
[2017-06-17 06:50] LABS: CALCIUM 8.3 mg/dl (8.5-10.1); CREATININE 0.73 mg/dl (0.60-1.40); POTASSIUM 3.3 mmol/L (3.5-5.1)
[2017-06-17 07:25] VITALS: BP 169/84; PULSE 60; TEMP 36.9; O2SAT 92
[2017-06-17] MEDS: PROPRANOLOL HCL 60 MG LA CAP PO SCH (08:39)
[2017-06-17] MEDS: CARBIDOPA/LEVODOPA 25/100MG TAB PO SCH ×2 (08:40→14:37)
[2017-06-17] MEDS: DOCUSATE SODIUM 100 MG CAP PO SCH (08:40)
[2017-06-17] MEDS: ESCITALOPRAM OXALATE 10 MG TAB PO SCH ×2 (08:40→10:12)
[2017-06-17] MEDS ORDERED: PANTOprazole SOD 40 MG TAB PO SCH (09:00)
[2017-06-17] MEDS ORDERED: POTASSIUM CHLORIDE 20 MEQ TABCR PO ONE (09:00)
--- NOTE | 2017-06-17 10:39 | GASTROENTEROLOGY PROGRESS NOTE ---
DATE: 06/17/2017 GASTROENTEROLOGY INPATIENT PROGRESS NOTE SUBJECTIVE: Chart reviewed, patient examined, discussed with Dr. Weeks who was on this weekend. The patient had an oozing area in the duodenum which underwent endoscopic therapeutic treatment ultimately with clipping. The patient's hemoglobin has done well overall, although did slightly drift down from 1.9 to 8.9 yesterday. On June 16 at midnight, it was down to 8.1. His white count remained elevated at 23.5, but is without fever, localizing abdominal pain or other constitutional symptoms. His platelet count is markedly elevated believe to be related to a thrombocytosis from splenectomy. For this, he has been on aspirin originally 325 mg but later changed to 81 mg daily. He is followed by a [facility] line worker for this issue. The patient denies any nausea, vomiting. His stool output from the fistulous stoma bag is dark, but he believes this actually starting to lightening color towards his normal brown. Historically, the patient describes that for couple days his stools will get rather dark without bright red blood or maroon stools. There are no symptoms associated with this. He does not use NSAIDS. His laboratory studies today otherwise were satisfactory, BUN and creatinine were 7 and 0.7; potassium 3.3, which is slightly low. LFTs remain about the same with alkaline phosphatase 196, although ALT 7, AST 17 and total bilirubin 0.3. REVIEW OF SYSTEMS: Otherwise noncontributory based on 13-point exam. He is tolerating full liquid diet well. MEDICATIONS: Currently include pantoprazole 40 mg twice a day p.o., Lexapro and Inderal for migraines and for blood pressure and tremors; Klonopin, Sinemet for his tremors; Colace, Mysoline. PHYSICAL EXAMINATION: VITAL SIGNS: Today - blood pressure is 169/84, respirations 18, heart rate 60, temperature 36.9, 92% on room air. The patient is sitting in bed comfortably with a visitor. GENERAL: He is awake, alert and oriented x3. HEENT: Sclerae are anicteric, conjunctivae moist. Oral mucosa moist. HEART: Normal S1, S2. LUNGS: Clear to auscultation without rales, rhonchi or wheezes. ABDOMEN: Soft, nontender, nondistended with good bowel sounds. The is a stomal appliance with a small amount of very dark brown stool which the patient reports is actually lightening up, this is in a liquid phase. EXTREMITIES: Without clubbing, cyanosis or edema. IMPRESSION AND PLAN: The patient's hemoglobin overall appears stable and is without any overt ongoing bleeding. The stool output from the stoma and from the rectum is likely residual material from his recent bleed. It is unclear what this lesion represents and may be a possible Dieulafoy's versus erosion. I am not aware that he had any surgery in this vicinity of the GI tract, although his other surgeries could be potential sources of bleeding. At all times, the patient reported that when this has been occurring over the past month or so that both the stomal appliance and his stools were broke dark in color and would suggest that this is a source occurring somewhere between the upper GI tract and to the level of the fistula, which according to the patient is in the colon. I made the following recommendations: I believe it is reasonable for the patient to have his diet advanced today. Would maintain the patient on a b.i.d. PPI dosing, especially if he is going to require aspirin. He should discuss the need and dosing of aspirin with his [facility] line worker as this may complicate bleeding should it be related. His stool for H. pylori antigen is still pending. I believe it is reasonable to advance his diet to a soft diet and if tolerated, he can proceed through that. If he otherwise remains stable from a vital sign standpoint, stool output and food and tolerating meals properly, his tentative discharge can be either later today or early tomorrow. If there is any reason resumption of darkening of the stool, I believe the next best test may be a tagged red cell scan that may help localize a location of the active bleeding, which based on the location of the stool output, its color could represent anything from this duodenal lesion down to the point of the colocutaneous fistula. Although, bleeding from a point distal to the stomal appliance is possible this would require a significant reflux and there was a specific area that was oozing blood in the proximal duodenum and likely represents the source. He should present to the Emergency Room and contact the office if this seems to be intensifying and certainly if it becomes more of an obvious overt bleed. I believe it is also important to check the hemoglobin sometime in mid week to ensure that his hemoglobin remains stable. He tentatively has a surgery to correct this fistula down at [place], on July 04. A discharge summary and procedure report should be forwarded to Dr. Gar, his surgeon [facility] for his review. Thank you for allowing us to participate in this patient's care.
[2017-06-17 12:14] LABS: HEMATOCRIT 30.9 % (42-52); HEMOGLOBIN 9.9 g/dL (14.0-18.0)
[2017-06-17 16:01] VITALS: BP 178/97; PULSE 54; TEMP 36.9; O2SAT 95
[2017-06-17 16:05] VITALS: BP 176/87; PULSE 59
--- NOTE | 2017-06-17 16:32 | DIAGNOSTIC IMAGING REPORT ---
TWO VIEW CHEST CLINICAL HISTORY: Bibasilar Rales. FINDINGS: PA and lateral chest radiographs are compared to study dated 03/14/2017 and correlated with chest CT dated 03/13/2017. The heart is enlarged and there is atherosclerotic calcification of the thoracic aorta. The pulmonary vasculature is noncongested. Emphysema and chronic interstitial thickening are similar to previous. There is mild elevation of the right hemidiaphragm and bibasilar atelectasis. There is a small left pleural effusion with left basilar opacities. This is best seen on the lateral projection. There is no pneumothorax. The skeletal structures appear osteopenic. The bony thorax appears intact. Close project over the upper abdomen. IMPRESSION: 1. Cardiomegaly and emphysema. 2. There are left basilar opacities and a small left pleural effusion. This is best seen on the lateral view. Correlate clinically for evidence of pneumonia. Radiographic follow-up to resolution is recommended. Electronically signed by: Brandon Hurd M.D. 06/17/2017 4:31 PM Dictated Date/Time: 06/17/2017 4:29 PM
[2017-06-17] MEDS ORDERED: PANT1TAB4 PO (16:33)
[2017-06-17] MEDS ORDERED: FRRS300 PO (16:33)
[2017-06-17 16:46] VITALS: BP 176/87; PULSE 59; TEMP 36.9; O2SAT 95
--- NOTE | 2017-06-17 16:52 | Discharge Instructions ---
Discharge Instructions Date of Service Jun 17, 2017. Admission Reason for Admission: Upper GI Bleed Discharge Discharge Diagnosis / Problem: Upper GI bleeding due to a duodenal ulcer Discharge Goals Goal(s): Learn about illness, Diagnostic testing, Therapeutic intervention Activity Recommendations Activity Limitations: as noted below For the next 2-3 days, as you recover from your hospital stay, please "take it easy" - * no heavy indoor or outdoor exertional activities * ok to take light walks . Instructions / Follow-Up Instructions / Follow-Up From Dr. Mims - Your GI bleeding appears to have come from an ulcer in the duodenum which is the first portion of the small intestine. There was active bleeding from this ulcer at the time of the EGD. Please do the following - * STOP your prilosec (omeprazole) * START protonix (pantoprazole) 40mg twice a day (first thing in AM on empty stomach, and then again at bedtime) * STOP your aspirin * DO NOT TAKE any ajbk-nwc-blcbkty anti-inflammatory drugs such as ibuprofen, motrin, alleve, or naprosyn; tylenol IS ok * diet - avoid spicy foods, fried foods, fast foods * beverages - avoid excessive amounts of caffeinated liquids including coffee, tea, or soda; clear sodas are fine * avoid alcohol consumption 100% * you will need a repeat CBC (blood count) in 2-3 days to ensure your blood counts are stable * please call Dr. Abdul' office or Dr. Valentine's office to arrange this * take ferrous sulfate (iron tablets) twice a day; these can be purchased over- the-counter * you will need to take iron for about 6-8 weeks at a minimum to replenish your iron that you lost with the GI bleeding * note that iron can make your stools look dark and can also cause constipation * of note - your hemoglobin levels were 8.9 to 9.9 throughout your stay Other issues - 1. Your chest x-ray appears to show a mild amount of chronic lung disease. This could be from occupational exposure, second-hand smoke, etc. Your chest x-ray did not show congestive heart failure. Please have Dr. Abdul investigate this more thoroughly as an outpatient in the next month or so. 2. Your blood pressures throughout your stay fluctuated considerably. Most were low or normal, and at times some were quite high. A review of past hospital stays shows that your blood pressures have been intermittently high. I would recommend you purchase a blood pressure cuff and check your blood pressures at home about once a day. Please write these numbers down and show them to Dr. Abdul. Some individuals with severe tremor often have spurious/incorrect readings because of the tremor itself. Your home values will tell us whether you truly have a blood pressure problem. Follow-up - 1. see Dr. Abdul THIS WEEK; again you will need a repeat CBC (Blood count) THIS WEEK 2. see Dr. Valentine, [facility], within 1-2 weeks Return to [facility] if - * you see bright red blood coming from your ostomy or your rectum * you see persistent dark, black, tarry stool from your ostomy or your rectum * you develop severe dizziness or lightheadedness * you vomit blood * you develop shortness of breath or chest pain * any other concerns Current Hospital Diet Patient's current hospital diet: Low Fiber Diet Discharge Diet Recommended Diet: AHA Diet (Heart Healthy) Procedures Procedures Performed: Esophagogastroduodenoscopy ("EGD") with bleeding from a duodenal ulcer. This was treated with injection, cautery and clipping. Pending Studies Studies pending at discharge: yes List of pending studies: H. Pylori stool antigen (this bacterium can cause stomach/duodenal ulcers). Medical Emergencies . Who to Call and When: Medical Emergencies: If at any time you feel your situation is an emergency, please call 911 immediately. . Non-Emergent Contact Non-Emergency issues call your: Primary Care Provider Call Non-Emergent contact if: temperature is above 100.5, your pain is unusual for you, you have any medication questions . . "Provider Documentation" section prepared by Moose Mims. . VTE Core Measure Inpt VTE Proph given/why not?: SCD's, Contraindicated
--- NOTE | 2017-06-17 17:53 | Discharge Summary ---
Discharge Summary Date of Service Jun 17, 2017. Discharge Summary Admission Date: Jun 15, 2017 at 15:27 Discharge Date: Jun 17, 2017 Discharge Disposition: Home Principal Diagnosis: upper GI bleeding 2nd to duodenal ulcer Problems/Secondary Diagnoses: Other acute issues while hospitalized: 1.) acute blood loss anemia 2.) abnormal chest x-ray with chronic interstitial markings - ?ILD/pulmonary fibrosis from prior tobacco use? Chronic medical problems: 1) Hypertension 2) Melanoma 3) Pancreatitis - recurrent - leading to a distal pancreatectomy and splenectomy at [facility] 10/2016 4) Depression 5) History of Sacral Decubitus Ulcer with MRSA 6) Tremor - undergoing work-up - Parkinson disease vs essential tremor 7) Thrombocytosis - result of splenectomy 8) Chronic leukocytosis Procedures: EGD - Dr. Bernardo Weeks Impression: - Esophagogastric landmarks identified. - Normal esophagus. - Erythematous mucosa in the pylorus. - Blood in the second portion of the duodenum. - One oozing duodenal ulcer with oozing hemorrhage (Anmol Class Ib). Injected. Treated with bipolar cautery. Clip (MR conditional) was placed. - No specimens collected. Consultations: gastroenterology - Dr. Bernardo Weeks, [facility] GI Medication Reconciliation New Medications: Ferrous Sulfate (Ferrous Sulfate) 325 Mg Tab 325 MG PO BID, #60 TABS 2 Refills Pantoprazole (Pantoprazole Sodium) 40 Mg Tab 40 MG PO BID, #60 TAB 1 Refill Continued Medications: Carbidopa/Levodopa (Sinemet 25MG/100MG) Tab 2 TAB PO TID, TAB Clonazepam (Klonopin) 0.5 Mg Tab 0.5 MG PO DAILY@2130, TAB Docusate Sodium (Colace) 100 Mg Cap 1 CAP PO BID for 30 Days, #60 CAP Escitalopram (Lexapro) 10 Mg Tab 10 MG PO DAILY, TAB Primidone (Mysoline) 50 Mg Tab 75 MG PO QPM, TAB Propranolol Hcl (Propranolol ER) 60 Mg Capcr 60 MG PO DAILY Discontinued Medications: Aspirin (Aspirin Ec) 81 Mg Tab 81 MG PO DAILY Omeprazole (Prilosec) 20 Mg Capcr 20 MG PO DAILY Referrals At Discharge Follow up Referrals: [facility] Referral - Within 1-2 Weeks with Temo Valentine M.D. Physician Referral - Please Call For Appointment with Chino Abdul MD Discharge Exam Physical Exam: General Appearance: no apparent distress ENT: pharynx normal Neck: no JVD Respiratory/Chest: no respiratory distress, no accessory muscle use, + rales (bibasilar, fine, no wheeze) Cardiovascular: regular rate, rhythm, no gallop, no murmur, normal peripheral pulses Abdomen / GI: normal bowel sounds, non tender, soft, no organomegaly, + pertinent finding (ostomy bag in place with dark/melena stool) Extremities: no pedal edema Neurologic/Psychiatric: alert, oriented x 3, + pertinent finding (tremor of arms/hands and facial tremor as well ) Hospital Course HISTORY OF PRESENT ILLNESS: 66 y/o male with history of HTN, tremor, distal pancreatectomy and splenectomy 10/2016 due to chronic pancreatitis and a splenic artery aneurysm. 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 Reports intermittent black stool filling the colostomy bag over the past 3 days which is now persistent. He denies any nausea, vomiting, abdominal pain or fever. Denies SOB, CP or lightheadedness. Initial labs are consistent with an acute upper GI bleed. HOSPITAL COURSE: The patient's presenting hemoglobin was 9.4. At time of ER presentation he was placed on PPI drip for presumed upper GI bleed. Shortly after the patient underwent EGD by Dr. Bernardo Weeks which demonstrated a duodenal ulcer with active, slowly oozing blood. This ulcer was injected, cauterized, and clipped. Following the EGD he was continued on PPI drip for another 48 hours. He never required PRBCs. Diet was restarted and slowly advanced without difficulty. Serial hemoglobins remained stable. On day of discharge the patient's hemoglobin ranged from 8.9 to 9.9. The patient remained hemodynamically stable his entire stay. At discharge the following were recommended - 1. PPI twice daily 2. discontinuation of aspirin until time of hospital follow-up 3. limitation of caffeinated beverages 4. avoidance of OTC NSAIDs 5. repeat CBC within 2-3 days for stability Other issues addressed while hospitalized - 1. thrombocytosis - this is likely due to his post-splenectomy state. His platelet count was consistently >1,000,000 while here. His aspirin should be resumed at the earliest time deemed safe from a GI standpoint. 2. leukocytosis - the patient had no fever or signs of infection while here. He has had a persistently high WBC count since his splenectomy earlier this year. Although a chest x-ray showed a questionable LLL infiltrate again he did not demonstrate signs/symptoms of pneumonia. Both cell lines, in addition to his hemoglobin, will need careful monitoring after discharge. 3. abnormal cxr - the patient has chronic, increased basilar interstitial markings. He has a significant past smoking history. He could have chronic lung disease and I recommended pulmonary consultation in the near-future. 4. elevated BPs - the patient's BPs were labile during his stay, with most being low or normal, but some being quite high. On past hospitalizations he had lability in his BP as well. I recommended ongoing surveillance at home with a home BP cuff and reporting these values to his PCP. No changes in his propranolol were made. Total Time Spent: Greater than 30 minutes This includes examination of the patient, discharge planning, medication reconciliation, and communication with other providers. Discharge Instructions Please refer to the electronic Patient Visit Report (Discharge Instructions) for additional information. Follow-Up 1. see Dr. Chino Abdul, PCP, within 2-3 days; repeat CBC advised at that time 2. see Dr. Temo Valentine, [facility] GI, within 1 - 2 weeks 3. keep scheduled appointments with [facility] in [place] (June 2017 ) Additional Copies To Chino Abdul MD; Temo Valentine M.D.; Jose Gar IV, MD
== END 2017-06-17 18:00 | disposition home or self-care (01) | DRG 378 ==
LOC: C.EDB 12:18 → C.MSW 15:27 → EDBEDREQ 15:54 → EDBEDREQSVC 15:54 → CANRESERV 16:10 → ENRESERV 16:10 → C.MSW 06-16 15:41
PROVIDERS: ADMIT Internal Medicine; ATTEND Internal Medicine
PROC: 0W3P8ZZ Control Bleeding in Gastrointestinal Tract, Via Natural or Artificial Opening Endoscopic (ICD-10-PCS; principal; 2017-06-15 16:35)
DX: K26.4 Chronic or unspecified duodenal ulcer with hemorrhage (principal); D62 Acute posthemorrhagic anemia; K63.2 Fistula of intestine; J84.10 Pulmonary fibrosis, unspecified; D72.829 Elevated white blood cell count, unspecified; D47.3 Essential (hemorrhagic) thrombocythemia; I10 Essential (primary) hypertension; G20 Parkinson's disease; K21.9 Gastro-esophageal reflux disease without esophagitis; F32.9 Major depressive disorder, single episode, unspecified; Z90.81 Acquired absence of spleen; Z90.411 Acquired partial absence of pancreas; Z93.3 Colostomy status; Z86.14 Personal history of Methicillin resistant Staphylococcus aureus infection; Z87.891 Personal history of nicotine dependence; Z79.82 Long term (current) use of aspirin; Z79.899 Other long term (current) drug therapy

== ENCOUNTER 2017-07-10 08:49 | Inpatient (IN) | payer BC, OTHER ==
[~2017-07-10] VITALS: Ht 172.7 cm; Wt 71.1 kg
[2017-07-10] VITALS (7 sets, daily range): BP systolic 118–169; BP diastolic 68–90; PULSE 55–85; TEMP 36.5–37.2; O2SAT 96–98; BMI 23.2
[~2017-07-10 08:49] MED LIST changes: -ASPI325T39 PO; +CARB25TA12 PO; +CLON0.5T3 PO; +DOCU-94 PO; +FRRS300 PO; -KLN/5 PO; -NRV5 PO; -PRLSR20 PO; +PRT40 PO
--- NOTE | 2017-07-10 09:17 | EMERGENCY ROOM VISIT NOTE ---
History Report prepared by Radha: Jeovanny Angel Under the Supervision of: Dr. Wellington Guerrero D.O. First contact with patient: 09:02 Chief Complaint: SHORTNESS OF BREATH Stated Complaint: SOB Nursing Triage Summary: discharged from [facility] yesterday for fistula repair in abd . 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 feels sob and headache History of Present Illness The patient is a 67 year old male who presents to the Emergency Room with complaints of worsening shortness of breath that the patient has been experiencing for a couple of days. The patient was just discharged from the [facility] following a bowel fistula repair. The fistula was present secondary to a prior surgery to remove part of his pancreas. He notes that his abdomen feels good. When the patient's nurse arrived to the home today his oxygen saturation was 82%. The patient states that his shortness of breath is worsened by laying flat, and somewhat worsened with exertion. He denies any history of blood clot. He is unusually drowsy as well. 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 A total of 10 systems reviewed and were otherwise negative. Past Medical & Surgical Medical Problems: (1) Acute pancreatitis (2) Bronchiolitis (3) Hypertension (4) Hypoxia (5) Melanoma (6) Occluded PICC line (7) Pancreatitis (8) Pancreatitis due to biliary obstruction (9) Sacral wound (10) Upper GI bleed Surgical Problems: (1) History of back surgery (2) S/P cholecystectomy (3) S/P colon resection (4) S/P splenectomy Family History FH: cancer FH: gallbladder disease FH: heart disease Hypertension Social History Smoking Status: Former Smoker Alcohol Use: none Drug Use: none Marital Status: Housing Status: lives with significant other Occupation Status: retired Current/Historical Medications Scheduled Carbidopa/Levodopa (Sinemet 25MG/100MG), 2 TAB PO TID Clonazepam (Klonopin), 0.5 MG PO DAILY@2130 Docusate Sodium (Colace), 1 CAP PO BID Escitalopram (Lexapro), 10 MG PO DAILY Ferrous Sulfate (Ferrous Sulfate), 325 MG PO BID Pantoprazole (Pantoprazole Sodium), 40 MG PO BID Primidone (Mysoline), 75 MG PO QPM Propranolol Hcl (Propranolol ER), 60 MG PO DAILY Allergies Coded Allergies: No Known Allergies (Unverified , 07/10/17) Physical Exam Vital Signs Date Time Temp Pulse Resp B/P (MAP) Pulse Ox O2 Delivery O2 Flow Rate FiO2 07/10/17 11:01 60 16 130/75 96 Nasal Cannula 5.0 07/10/17 10:01 60 24 132/81 96 Nasal Cannula 5.0 07/10/17 09:07 97 Nasal Cannula 5.0 07/10/17 09:07 63 07/10/17 09:00 94 Nasal Cannula 5.0 07/10/17 08:54 36.4 69 18 139/92 82 Room Air Physical Exam GENERAL: Patient is awake, alert, and somewhat anxious appearing. EYES: The conjunctivae are clear. The pupils are round and reactive. EARS, NOSE, MOUTH AND THROAT: The nose is without any evidence of any deformity. Mucous membranes are moist tongue is midline NECK: The neck is nontender and supple. RESPIRATORY: Lung sounds are diminished throughout, there are rales at both bases. Mild tachypnea and conversational dyspnea noted. CARDIOVASCULAR: Regular rate and rhythm noted there no murmurs rubs or gallops normal S1 normal S2 GASTROINTESTINAL: The abdomen is distended. There is a recent surgical site noted in the abdomen. Wound lucrecia are in place. There is mild drainage in the middle portion of the wound. Bowel sounds are present in all quadrants. Abdomen is nontender MUSCULOSKELETAL/EXTREMITIES: There is no evidence of gross deformity full range of motion is noted in the hips and shoulders SKIN: There is trace pedal edema bilaterally. There is no obvious evidence of any rash. There are no petechiae, pallor or cyanosis noted. NEUROLOGIC: Patient is awake alert and oriented x3. Medical Decision & Procedures ER Provider Diagnostic Interpretation: Radiology results as stated below per my review and radiologist interpretation: (CHEST FOR PE) ANGIO WITH CT DOSE: 435.77 mGycm HISTORY: 67 years-old Male dense with acute shortness of breath with history of recent fistula repair TECHNIQUE: Multiple CTA images of the chest were obtained after the intravenous administration of 93 ml Optiray 320. Coronal and sagittal MIPS were obtained from the axial data set and were submitted for review. A dose lowering technique was utilized adhering to the principles of ALARA. COMPARISON: Chest 03/13/2017, CTA 05/14/2016. FINDINGS: CTA: Mild cardiomegaly with coronary arterial disease. The thoracic aorta is normal in both course and caliber without aneurysm or dissection. Moderate atherosclerosis of the aorta. Image great vessels are patent. Stent graft of the celiac trunk is noted with the upper abdominal aorta not well opacified secondary to contrast bolus timing. The pulmonary arterial tree is opacified to level of the proximal subsegmental branches and demonstrates no focal filling defects to suggest pulmonary thromboembolic disease. 5 x 3 x 6 mm enhancing focus adjacent to a terminal branch of a posterior basal segment of the right lower lobe pulmonary artery suggests a small pulmonary AVM as seen on image 73 series 4 and image [address] CHEST: Thyroid is heterogeneous and appears enlarged. No pathologically enlarged lymph nodes about the chest identified. Trace left pleural effusion with subsegmental dependent bibasilar opacities, left greater than right. Mild centrilobular and paraseptal emphysematous changes without pneumothorax. No suspicious pulmonary nodules or masses identified. There is minimal tree-in-bud nodularity of the left lower lobe as seen on image 157 series 4 and a peripheral distribution. Central airways are patent with mild bibasilar bronchial wall thickening. Mild nonspecific perinephric stranding is noted bilaterally. Mild mesenteric edema. Multiple midline anterior skin lucrecia are noted. Soft tissues are unremarkable. IMPRESSION: 1. No acute aortic pathology or evidence of pulmonary thromboembolic disease. 2. Trace left pleural effusion with dependent bibasilar consolidative opacities, left greater than right suggesting compressive atelectasis. Additionally, there are areas of tree-in-bud nodularity within the left lower lobe with associated bibasilar bronchial wall thickening suggesting bronchiolitis with bronchitis. 3. Suggested small pulmonary AVM of the posterior basal segment right lower lobe as above measuring up to 6 mm. The above report was generated using voice recognition software. It may contain grammatical, syntax or spelling errors. Electronically signed by: Baldev Dumont M.D. 07/10/2017 10:48 AM Dictated Date/Time: 07/10/2017 10:38 AM CHEST ONE VIEW PORTABLE HISTORY: Sepsis COMPARISON: Chest 06/17/2017. FINDINGS: The lungs are clear. Cardiac silhouette is normal in size. No pleural effusions. No pneumothorax. Postoperative changes within the epigastric region. IMPRESSION: No acute process. Electronically signed by: Darien Hayes M.D. 07/10/2017 9:36 AM Dictated Date/Time: 07/10/2017 9:35 AM Laboratory Results 07/10/17 09:10 Red Blood Count 4.49, Mean Corpuscular Volume 94.2, Mean Corpuscular Hemoglobin 29.8, Mean Corpuscular Hemoglobin Concent 31.7, Mean Platelet Volume 10.4, Neutrophils (%) (Auto) 76.6, Lymphocytes (%) (Auto) 7.9, Monocytes (%) (Auto) 7.4, Eosinophils (%) (Auto) 7.2, Basophils (%) (Auto) 0.4, Neutrophils # (Auto) 17.30, Lymphocytes # (Auto) 1.79, Monocytes # (Auto) 1.68, Eosinophils # (Auto) 1.62, Basophils # (Auto) 0.10 07/10/17 09:10 Test 07/10/17 09:10 07/10/17 09:22 07/10/17 09:28 White Blood Count 22.61 K/uL (4.8-10.8) Red Blood Count 4.49 M/uL (4.7-6.1) Hemoglobin 13.4 g/dL (14.0-18.0) Hematocrit 42.3 % (42-52) Mean Corpuscular Volume 94.2 fL (80-100) Mean Corpuscular Hemoglobin 29.8 pg (25-34) Mean Corpuscular Hemoglobin Concent 31.7 g/dl (32-36) Platelet Count 1368 K/uL (130-400) Mean Platelet Volume 10.4 fL (7.4-10.4) Neutrophils (%) (Auto) 76.6 % Lymphocytes (%) (Auto) 7.9 % Monocytes (%) (Auto) 7.4 % Eosinophils (%) (Auto) 7.2 % Basophils (%) (Auto) 0.4 % Neutrophils # (Auto) 17.30 K/uL (1.4-6.5) Lymphocytes # (Auto) 1.79 K/uL (1.2-3.4) Monocytes # (Auto) 1.68 K/uL (0.11-0.59) Eosinophils # (Auto) 1.62 K/uL (0-0.5) Basophils # (Auto) 0.10 K/uL (0-0.2) RDW Standard Deviation 57.0 fL (36.4-46.3) RDW Coefficient of Variation 16.6 % (11.5-14.5) Immature Granulocyte % (Auto) 0.5 % Immature Granulocyte # (Auto) 0.12 K/uL (0.00-0.02) Large Platelets 2+ Giant Platelets 1+ Anisocytosis PRESENT Erythrocyte Sedimentation Rate 34 mm/hr (0-14) Prothrombin Time 10.8 SECONDS (9.0-12.0) Prothromb Time International Ratio 1.0 (0.9-1.1) Activated Partial Thromboplast Time 30.6 SECONDS (21.0-31.0) Partial Thromboplastin Ratio 1.2 Anion Gap 7.0 mmol/L (3-11) Est Creatinine Clear Calc Drug Dose 89.0 ml/min Estimated GFR () 108.5 Estimated GFR (Non- 93.6 BUN/Creatinine Ratio 15.0 (10-20) Calcium Level 9.7 mg/dl (8.5-10.1) Phosphorus Level 4.3 mg/dl (2.5-4.9) Magnesium Level 2.0 mg/dl (1.8-2.4) Total Bilirubin 0.2 mg/dl (0.2-1) Aspartate Amino Transf (AST/SGOT) 20 U/L (15-37) Alanine Aminotransferase (ALT/SGPT) 12 U/L (12-78) Alkaline Phosphatase 270 U/L (45-117) Total Creatine Kinase 31 U/L (39-308) Creatine Kinase MB 0.6 ng/ml (0.5-3.6) Creatine Kinase MB Ratio 1.9 (0-3.0) Troponin I < 0.015 ng/ml (0-0.045) C-Reactive Protein 1.84 mg/dl (0-0.29) Pro-B-Type Natriuretic Peptide 324 pg/ml (0-900) Total Protein 7.3 gm/dl (6.4-8.2) Albumin 3.5 gm/dl (3.4-5.0) Globulin 3.8 gm/dl (2.5-4.0) Albumin/Globulin Ratio 0.9 (0.9-2) Lipase 225 U/L (73-393) Bedside Lactic Acid Venous 0.87 mmol/L (0.90-1.70) Venous Blood pH 7.29 (7.36-7.41) Venous Blood Partial Pressure CO2 71 mmHg (38.0-50.0) Venous Blood Partial Pressure O2 36 mmHg Venous Blood HCO3 34 mmol/L Venous Blood Oxygen Saturation 61.2 % Venous Blood Base Excess 4.7 mEq/L Laboratory results per my review. Medications Administered Medications (Trade) Dose Ordered Sig/Pio Route Start Time Stop Time Status Last Admin Dose Admin Sodium Chloride 1,000 ml @ 999 mls/hr Q1H1M STAT IV 07/10/17 11:04 07/10/17 12:08 DC 07/10/17 11:11 999 MLS/HR Levofloxacin (Levaquin / D5W) 750 mg NOW STAT IV 07/10/17 11:04 07/10/17 11:05 DC 07/10/17 11:10 750 MG Albuterol/ Ipratropium (Duoneb) 3 ml NOW STAT INH 07/10/17 11:04 07/10/17 11:05 DC 07/10/17 11:10 3 ML ECG Indication: SOB/dyspnea Rate (beats per minute): 60 Rhythm: normal sinus Findings: no acute ischemic change, no ectopy Comparison ECG Date: 06/15/2017 Change: no significant change Change: Patient's EKG was interpreted by me. ED Course 0904: The patient was evaluated in room A9. A complete history and physical examination were performed. 1100: I checked on the patient at this time. He is doing well. 1103: I discussed the case with Dr. Elida Connors [facility] [place] at this time. He will evaluate the patient for further treatment. 1104: Ordered Duoneb 3 mL INH, Levofloxacin 750 mg IV, Sodium Chloride 1000 mL @ 999 mL/hr IV. Medical Decision Differential diagnosis: Etiologies such as infections, reactive airway disease, pneumonia, pneumothorax , COPD, CHF, cardiac ischemia, pulmonary embolism, musculoskeletal, gastrointestinal, as well as others were entertained. Nursing notes reviewed. The patient is a 67-year-old male who presented to the emergency department for an evaluation of difficulty breathing. The patient describes dyspnea on exertion as well as orthopnea. He had abnormal lung sounds and initially I thought his condition was secondary to fluid overload. The patient had a recent surgery so that consideration was made for venous thromboembolic disease as well. The patient had a CAT scan of the chest which did not reveal definite pulmonary embolism but did show the possibility of bronchitis. Clinically I think this might fit more with pneumonia. The patient has had a cough. I discussed the patient's laboratory and radiographic studies with him. He was treated with supplemental oxygen as well as IV fluids and IV antibiotics. On subsequent reevaluation he was feeling much better. The patient was assigned to the on-call [facility] hospitalist. They have agreed to evaluate the patient in the emergency department for further management and disposition. Blood Pressure Screening Patient's blood pressure: Elevated blood pressure Referred to hospitalist Consults Time Called: 1100 Consulting Physician: Dr. Elida BASS Hospitalist Returned Call: 1103 I discussed the case with Dr. Elida BASS [facility] at this time. He will evaluate the patient for further treatment. Impression Primary Impression: Pneumonia Additional Impressions: Respiratory acidosis Hypoxia Scribe Attestation The scribe's documentation has been prepared under my direction and personally reviewed by me in its entirety. I confirm that the note above accurately reflects all work, treatment, procedures, and medical decision making performed by me. Departure Information Dispostion Being Evaluated By Hospitalist Referrals Chino Abdul MD (PCP) Patient Instructions My [facility] [address] Problem Qualifiers Primary Impression: Pneumonia Pneumonia type: due to unspecified organism Laterality: unspecified laterality Lung location: unspecified part of lung Qualified Codes: J18.9 - Pneumonia, unspecified organism
--- NOTE | 2017-07-10 09:38 | DIAGNOSTIC IMAGING REPORT ---
CHEST ONE VIEW PORTABLE HISTORY: Sepsis COMPARISON: Chest 06/17/2017. FINDINGS: The lungs are clear. Cardiac silhouette is normal in size. No pleural effusions. No pneumothorax. Postoperative changes within the epigastric region. IMPRESSION: No acute process. Electronically signed by: Darien Hayes M.D. 07/10/2017 9:36 AM Dictated Date/Time: 07/10/2017 9:35 AM
[2017-07-10 09:41] LABS: PTT PATIENT 30.6 SECONDS (21.0-31.0)
[2017-07-10 09:52] LABS: ALBUMIN 3.5 gm/dl (3.4-5.0); ALT/SGPT 12 U/L (12-78); BLOOD UREA NITROGEN 12 mg/dl (7-18); CALCIUM 9.7 mg/dl (8.5-10.1); CARBON DIOXIDE 31 mmol/L (21-32); CREATININE 0.79 mg/dl (0.60-1.40); GLUCOSE 91 mg/dl (70-99); LIPASE 225 U/L (73-393); POTASSIUM 3.4 mmol/L (3.5-5.1); SODIUM 141 mmol/L (136-145)
[2017-07-10 09:55] LABS: ALKALINE PHOSPHATASE 270 U/L (45-117); AST/SGOT 20 U/L (15-37); CKMB 0.6 ng/ml (0.5-3.6); PHOSPHORUS 4.3 mg/dl (2.5-4.9); TOTAL PROTEIN 7.3 gm/dl (6.4-8.2)
[2017-07-10 09:56] LABS: HEMATOCRIT 42.3 % (42-52); HEMOGLOBIN 13.4 g/dL (14.0-18.0); MEAN CELL VOLUME 94.2 fL (80-100); MEAN CORPUSCULAR HEMOGLOBIN 29.8 pg (25-34); MEAN CORPUSCULAR HGB CONC 31.7 g/dl (32-36); MEAN PLATELET VOLUME 10.4 fL (7.4-10.4); PLATELET COUNT 1368 K/uL (130-400); RED CELL DISTRIBUTION WIDTH CV 16.6 % (11.5-14.5); WHITE BLOOD COUNT 22.61 K/uL (4.8-10.8)
[2017-07-10 09:57] LABS: BASO % 0.4 %; EOS % 7.2 %; EOS ABS # 1.62 K/uL (0-0.5); IG# 0.12 K/uL (0.00-0.02); LYMPH % 7.9 %; LYMPH ABS # 1.79 K/uL (1.2-3.4); MONO % 7.4 %; MONO ABS # 1.68 K/uL (0.11-0.59); NEUT % 76.6 %
[2017-07-10] MEDS ORDERED: OPTIRAY 320 IV PRN (10:15)
--- NOTE | 2017-07-10 10:50 | DIAGNOSTIC IMAGING REPORT ---
(CHEST FOR PE) ANGIO WITH CT DOSE: 435.77 mGycm HISTORY: 67 years-old Male dense with acute shortness of breath with history of recent fistula repair TECHNIQUE: Multiple CTA images of the chest were obtained after the intravenous administration of 93 ml Optiray 320. Coronal and sagittal MIPS were obtained from the axial data set and were submitted for review. A dose lowering technique was utilized adhering to the principles of ALARA. COMPARISON: Chest 03/13/2017, CTA 05/14/2016. FINDINGS: CTA: Mild cardiomegaly with coronary arterial disease. The thoracic aorta is normal in both course and caliber without aneurysm or dissection. Moderate atherosclerosis of the aorta. Image great vessels are patent. Stent graft of the celiac trunk is noted with the upper abdominal aorta not well opacified secondary to contrast bolus timing. The pulmonary arterial tree is opacified to level of the proximal subsegmental branches and demonstrates no focal filling defects to suggest pulmonary thromboembolic disease. 5 x 3 x 6 mm enhancing focus adjacent to a terminal branch of a posterior basal segment of the right lower lobe pulmonary artery suggests a small pulmonary AVM as seen on image 73 series 4 and image [address] CHEST: Thyroid is heterogeneous and appears enlarged. No pathologically enlarged lymph nodes about the chest identified. Trace left pleural effusion with subsegmental dependent bibasilar opacities, left greater than right. Mild centrilobular and paraseptal emphysematous changes without pneumothorax. No suspicious pulmonary nodules or masses identified. There is minimal tree-in-bud nodularity of the left lower lobe as seen on image 157 series 4 and a peripheral distribution. Central airways are patent with mild bibasilar bronchial wall thickening. Mild nonspecific perinephric stranding is noted bilaterally. Mild mesenteric edema. Multiple midline anterior skin lucrecia are noted. Soft tissues are unremarkable. IMPRESSION: 1. No acute aortic pathology or evidence of pulmonary thromboembolic disease. 2. Trace left pleural effusion with dependent bibasilar consolidative opacities, left greater than right suggesting compressive atelectasis. Additionally, there are areas of tree-in-bud nodularity within the left lower lobe with associated bibasilar bronchial wall thickening suggesting bronchiolitis with bronchitis. 3. Suggested small pulmonary AVM of the posterior basal segment right lower lobe as above measuring up to 6 mm. The above report was generated using voice recognition software. It may contain grammatical, syntax or spelling errors. Electronically signed by: Baldev Dumont M.D. 07/10/2017 10:48 AM Dictated Date/Time: 07/10/2017 10:38 AM
[2017-07-10] MEDS ORDERED: ALBUT/IPRATROP 3MG/0.5MG NEB 3 ML VIAL INH STA (11:04)
[2017-07-10] MEDS ORDERED: SODIUM CHLORIDE 0.9% 1000ML 1,000 ML IV STA (11:04)
[2017-07-10] MEDS ORDERED: LEVAQUIN 750MG / 150ML D5W IV STA (11:04)
[2017-07-10] MEDS ORDERED: ALUMINUM/MAGNESIUM/SIMETH (MAALOX MAX) 30 ML UDC PO PRN (11:30)
[2017-07-10] MEDS ORDERED: ALBUTEROL 0.083% NEBU SOLN 3 ML VIAL INH PRN (11:30)
[2017-07-10] MEDS ORDERED: MAGNESIUM HYDROXIDE SUSP 30 ML UDC PO PRN (11:30)
[2017-07-10] MEDS ORDERED: ACETAMINOPHEN 325 MG TAB PO PRN (11:30)
[2017-07-10] MEDS ORDERED: ZOLPIDEM TARTRATE 5 MG TAB PO PRN (11:30)
[2017-07-10] MEDS ORDERED: POLYETHYLENE (MIRALAX) 17 GM PACK PO PRN (11:30)
[2017-07-10] MEDS ORDERED: ONDANSETRON INJ 2 MG/ML 2 ML VIAL IV PRN (11:30)
--- NOTE | 2017-07-10 11:42 | History and Physical ---
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 He was recently admitted to [facility] for an upper GI bleed due to a duodenal ulcer. Pt had a fistula at the time (transverse colon to abdominal wall) as a result of surgical complications following his splenectomy/ pancreatectomy. This was repaired at [facility] 07/04. He was discharged one day prior - 07/09. The pt presents today due to progressive SOB > 3 days. A home health aid reported an oxygen saturation of 82%. The pt denies any CP, denies an acute productive cough, denies n/v and could not confirm a fever. He has a chronic AM cough which he attributes to his history of smoking. The pt's states that he required 02 during his previous admission for a GI bleed and had been requiring 02 throughout his surgical admission at [facility]. No reason was provided. He has an extensive smoking history but does not have a documented history of COPD. He notes that he often wakes up at night with a headache. A CTA was obtained in the ER revealing atelectasis and bronchiolitis. A VBG revealed a PCO2 of 71 and mild respiratory acidosis. Past Medical/Surgical History Past Medical/Surgical History 1) Thrombocytosis - result of splenectomy 2) Melanoma 3) Pancreatitis - recurrent - leading to a distal pancreatectomy and splenectomy at [facility] 10/31 4) Depression 5) History of Sacral Decubitus Ulcer with MRSA 6) Tremor - undergoing work-up - Parkinson disease vs essential tremor Surgical: 1) History of back surgery 2) Cholecystectomy 3) Colon resection 4) Splenic Artery aneurysm - splenectomy 5) Distal Pancreatectomy 6) Abdominal wall fistula/colostomy - transverse colon to abdominal wall - repaired 07/04 Family History FH: cancer FH: gallbladder disease FH: heart disease Hypertension Social History Quit smoking 1.5 yrs ago - does not drink alcohol Smoking Status: Former Smoker Drug Use: none Marital Status: Housing status: lives with family Occupational Status: retired Multi-Drug Resistant Organisms History of MDRO: Yes Type of MDRO: MRSA Allergies Coded Allergies: No Known Allergies (Unverified , 07/10/17) Home Medications Scheduled Carbidopa/Levodopa (Sinemet 25MG/100MG), 2 TAB PO TID Clonazepam (Klonopin), 0.5 MG PO DAILY@2130 Docusate Sodium (Colace), 1 CAP PO BID Escitalopram (Lexapro), 10 MG PO DAILY Ferrous Sulfate (Ferrous Sulfate), 325 MG PO BID Pantoprazole (Pantoprazole Sodium), 40 MG PO BID Primidone (Mysoline), 75 MG PO QPM Propranolol Hcl (Propranolol ER), 60 MG PO DAILY Review of Systems Constitutional: No fever, No chills, No sweats Eyes: No worsening of vision ENT: No hearing loss, No unusual epistaxis, No nasal symptoms Respiratory: + cough (Chronic AM cough) Cardiovascular: No chest pain, No orthopnea, No PND Abdomen: + pain (Minimal pain at site of recent surgery), No nausea, No vomiting Musculoskeletal: No joint pain Genitourinary - Male: No hematuria, No dysuria Neurologic: No memory loss, No paralysis Psychiatric: No depression symptoms Endocrine: No fatigue Hematologic / Lymphatic: No abnormal bleeding/bruising Integumentary: + problem reported (Abdominal surgical wound - no evidence of infection), No rash Allergic / Immunologic: No environmental allergies Physical Exam Vital Signs Date Time Temp Pulse Resp B/P (MAP) Pulse Ox O2 Delivery O2 Flow Rate FiO2 07/10/17 11:01 60 16 130/75 96 Nasal Cannula 5.0 07/10/17 10:01 60 24 132/81 96 Nasal Cannula 5.0 07/10/17 09:07 97 Nasal Cannula 5.0 07/10/17 09:07 63 07/10/17 09:00 94 Nasal Cannula 5.0 07/10/17 08:54 36.4 69 18 139/92 82 Room Air General Appearance: WD/WN, no apparent distress Head: normocephalic Eyes: normal inspection ENT: normal ENT inspection, pharynx normal Neck: supple, no JVD Respiratory/Chest: chest non-tender, lungs clear, normal breath sounds Cardiovascular: regular rate, rhythm, no edema, no gallop Abdomen/GI: normal bowel sounds, soft, + pertinent finding (Abdominal surgical wound) Back: normal inspection, no CVA tenderness Extremities/Musculoskelatal: normal inspection, no calf tenderness, normal capillary refill Neurologic/Psych: rubble placer II-XII nml as tested, no motor/sensory deficits, alert, oriented x 3 Skin: normal color, + pertinent finding (Abdominal surgical wound - lucrecia - no evidence of infection) Diagnostics Laboratory Results Results Past 24 Hours Test 07/10/17 09:10 07/10/17 09:28 Range/Units White Blood Count 22.61 4.8-10.8 K/uL Red Blood Count 4.49 4.7-6.1 M/uL Hemoglobin 13.4 14.0-18.0 g/dL Hematocrit 42.3 42-52 % Mean Corpuscular Volume 94.2 80-100 fL Mean Corpuscular Hemoglobin 29.8 25-34 pg Mean Corpuscular Hemoglobin Concent 31.7 32-36 g/dl Platelet Count 1368 130-400 K/uL Mean Platelet Volume 10.4 7.4-10.4 fL Neutrophils (%) (Auto) 76.6 % Lymphocytes (%) (Auto) 7.9 % Monocytes (%) (Auto) 7.4 % Eosinophils (%) (Auto) 7.2 % Basophils (%) (Auto) 0.4 % Neutrophils # (Auto) 17.30 1.4-6.5 K/uL Lymphocytes # (Auto) 1.79 1.2-3.4 K/uL Monocytes # (Auto) 1.68 0.11-0.59 K/uL Eosinophils # (Auto) 1.62 0-0.5 K/uL Basophils # (Auto) 0.10 0-0.2 K/uL RDW Standard Deviation 57.0 36.4-46.3 fL RDW Coefficient of Variation 16.6 11.5-14.5 % Immature Granulocyte % (Auto) 0.5 % Immature Granulocyte # (Auto) 0.12 0.00-0.02 K/uL Large Platelets 2+ Giant Platelets 1+ Anisocytosis PRESENT Erythrocyte Sedimentation Rate 34 0-14 mm/hr Prothrombin Time 10.8 9.0-12.0 SECONDS Prothromb Time International Ratio 1.0 0.9-1.1 Activated Partial Thromboplast Time 30.6 21.0-31.0 SECONDS Partial Thromboplastin Ratio 1.2 Sodium Level 141 136-145 mmol/L Potassium Level 3.4 3.5-5.1 mmol/L Chloride Level 103 98-107 mmol/L Carbon Dioxide Level 31 21-32 mmol/L Anion Gap 7.0 3-11 mmol/L Blood Urea Nitrogen 12 7-18 mg/dl Creatinine 0.79 0.60-1.40 mg/dl Est Creatinine Clear Calc Drug Dose 89.0 ml/min Estimated GFR () 108.5 Estimated GFR (Non- 93.6 BUN/Creatinine Ratio 15.0 10-20 Random Glucose 91 70-99 mg/dl Calcium Level 9.7 8.5-10.1 mg/dl Phosphorus Level 4.3 2.5-4.9 mg/dl Magnesium Level 2.0 1.8-2.4 mg/dl Total Bilirubin 0.2 0.2-1 mg/dl Aspartate Amino Transf (AST/SGOT) 20 15-37 U/L Alanine Aminotransferase (ALT/SGPT) 12 12-78 U/L Alkaline Phosphatase 270 45-117 U/L Total Creatine Kinase 31 39-308 U/L Creatine Kinase MB 0.6 0.5-3.6 ng/ml Creatine Kinase MB Ratio 1.9 0-3.0 Troponin I < 0.015 0-0.045 ng/ml C-Reactive Protein 1.84 0-0.29 mg/dl Pro-B-Type Natriuretic Peptide 324 0-900 pg/ml Total Protein 7.3 6.4-8.2 gm/dl Albumin 3.5 3.4-5.0 gm/dl Globulin 3.8 2.5-4.0 gm/dl Albumin/Globulin Ratio 0.9 0.9-2 Lipase 225 73-393 U/L Venous Blood pH 7.29 7.36-7.41 Venous Blood Partial Pressure CO2 71 38.0-50.0 mmHg Venous Blood Partial Pressure O2 36 mmHg Venous Blood HCO3 34 mmol/L Venous Blood Oxygen Saturation 61.2 % Venous Blood Base Excess 4.7 mEq/L Microbiology Results 07/10/17 Blood Culture, Received Pending 07/10/17 Blood Culture, Received Pending Diagnostic Radiology CTA: 1. No acute aortic pathology or evidence of pulmonary thromboembolic disease. 2. Trace left pleural effusion with dependent bibasilar consolidative opacities , left greater than right suggesting compressive atelectasis. Additionally, there are areas of tree-in-bud nodularity within the left lower lobe with associated bibasilar bronchial wall thickening suggesting bronchiolitis with bronchitis. 3. Suggested small pulmonary AVM of the posterior basal segment right lower lobe as above measuring up to 6 mm. Impression Assessment and Plan 66 y/o M Hx tremor, chronic leukocytosis and thrombocytosis, distal pancreatectomy and splenectomy 10/31, GI bleed 06/03, abdominal fistula repair 07/04 - DCd from [facility] 07/09 - Presents today due to progressive SOB > 3 days. A home health aid reported an oxygen saturation of 82%. The pt denies any CP, denies an acute productive cough, denies n/v and could not confirm a fever. He has a chronic AM cough which he attributes to his history of smoking. The pt's states that he required 02 during his previous admission for a GI bleed and had been requiring 02 throughout his surgical admission at [facility]. No reason was provided. He has an extensive smoking history but does not have a documented history of COPD. He notes that he often wakes up at night with a headache. A CTA was obtained in the ER revealing atelectasis and bronchiolitis. A VBG revealed a PCO2 of 71 and mild respiratory acidosis. 1) Hypoxic and hypercarbic respiratory failure - no clear etiology. Bronchitis/ bronchiolitis is present on CT as is atelectasis and trace effusions. He has repeatedly required oxygen during unrelated recent admissions. There may be a degree of undiagnosed chronic bronchitis or COPD considering his smoking history. REINA may provide an explanation for hypercarbia. Atelectasis may be a result of recent surgery, however, a chronic neuromuscular issue should also be considered which may then tie in to his unexplained tremor. Considering his hypoxia, inflammation reported on CT and history of splenectomy , we will start him on antibiotics, nebs and an 02 protocol. Incentive spirometry will be encouraged. A pulmonology consult will be requested. Sputum cultures and a rapid flu are pending on admission. 2) Abdominal wound following surgery - no evidence of infection - wound care consulted. 3) Tremor - no definitive diagnosis reg cause - cont Sinemet and Propranolol 4) Chronic thrombocytosis and leukocytosis - thrombocytosis is explained by history of splenectomy and may worsen in presence of inflammatory process. Leukocytosi also appears chronic at this point and may need outpt follow-up. Full code - Heparin prophylaxis (states he was receiving heparin during his recent hospital stay without bleeding issues) Total time for this admit including review of labs, meds, imaging - discussion with pt, , ER attending - 40 min Level of Care Telemetry Resuscitation Status FULL RESUSCITATION VTE Prophylaxis Given or contraindicated: Unfractionated heparin SQ
[2017-07-10 13:00] LABS: INFLUENZA B ANTIGEN Neg for Influ B (NEG)
[2017-07-10] MEDS: ALBUT/IPRATROP 3MG/0.5MG NEB 3 ML VIAL INH SCH ×2 (15:00→19:21)
[2017-07-10] MEDS ORDERED: D5NSS + 20MEQ KCL 1,000 ML IV ONE (16:00)
[2017-07-10] MEDS: DOCUSATE SODIUM 100 MG CAP PO SCH (19:39)
[2017-07-10] MEDS: FERROUS SULFATE 325 MG TAB PO SCH (21:01)
[2017-07-10] MEDS: CARBIDOPA/LEVODOPA 25/100MG TAB PO SCH (21:01)
[2017-07-10] MEDS: PRIMIDONE 50 MG TAB PO SCH (21:02)
[2017-07-10] MEDS: PANTOprazole SOD 40 MG TAB PO SCH (21:03)
[2017-07-10] MEDS: CLONAZEPAM 0.5 MG TAB PO SCH (21:03)
[2017-07-11] VITALS (14 sets, daily range): BP systolic 120–176; BP diastolic 72–94; PULSE 51–58; TEMP 36.9–37.2; O2SAT 92–97; Ht 172.7 cm; Wt 71.1 kg
[2017-07-11] MEDS: ALBUT/IPRATROP 3MG/0.5MG NEB 3 ML VIAL INH SCH ×2 (01:42→07:15)
[2017-07-11] MEDS: FERROUS SULFATE 325 MG TAB PO SCH ×2 (08:47→20:11)
[2017-07-11] MEDS: DOCUSATE SODIUM 100 MG CAP PO SCH ×3 (08:47→20:09)
[2017-07-11] MEDS: PROPRANOLOL HCL 60 MG LA CAP PO SCH (08:48)
[2017-07-11] MEDS: ESCITALOPRAM OXALATE 10 MG TAB PO SCH (08:49)
[2017-07-11] MEDS: PANTOprazole SOD 40 MG TAB PO SCH ×2 (08:49→20:11)
[2017-07-11] MEDS: CARBIDOPA/LEVODOPA 25/100MG TAB PO SCH ×3 (08:50→20:10)
[2017-07-11] MEDS: LEVOFLOXACIN / D5W 750 MG in PREMIXED IN D5W 150 ML IV SCH (10:23)
--- NOTE | 2017-07-11 13:08 | Pulmonary Consultation ---
History General Date of Service: Jul 11, 2017. Stated Complaint: Bronchiolitis, Hypoxia HPI The patient is a 67 year old male who presents to [facility] with complaints of Bronchiolitis, Hypoxia. The patient's primary care provider is Chino Abdul MD. Historian: patient, family Severity: mild Review of Systems Constitutional: reports: other (rhinorrhea) Eyes: reports: no symptoms ENT: reports: rhinorrhea Cardiovascular: reports: no symptoms Respiratory: reports: no symptoms Gastrointestinal: reports: no symptoms Genitourinary - Male: reports: no symptoms Musculoskeletal: reports: other (tremor) Neurologic: reports: tremors Psychiatric: reports: no symptoms Past Medical History Past Medical History: Essential tremor, lymphocytosis, splenectomy, pancreatic surgery, pancreatic cutaneous fistula status post surgical repair, active smoker up until year and half, COPD, bronchiolitis. Family History FH: cancer FH: gallbladder disease FH: heart disease Hypertension Social History Hx Tobacco Use In Past Year?: No Smoking Status: Former Smoker Marital status: Housing status: lives with family Occupational Status: retired History of MDRO History of MDRO: Yes Type of MDRO: MRSA Allergies Coded Allergies: No Known Allergies (Unverified , 07/10/17) Current Medications Reported Home Medications Medications Dose Route/Sig Max Daily Dose Days Date Category Ferrous Sulfate 325 Mg Tab 325 Mg PO BID 06/17/17 Rx Pantoprazole Sodium (Pantoprazole) 40 Mg Tab 40 Mg PO BID 06/17/17 Rx Sinemet 25MG/100MG (Carbidopa/Levodopa) Tab 2 Tab PO TID 06/15/17 Reported Colace (Docusate Sodium) 100 Mg Cap 1 Cap PO BID 30 06/15/17 Reported Mysoline (Primidone) 50 Mg Tab 75 Mg PO QPM 03/12/17 Reported Lexapro (Escitalopram Oxalate) 10 Mg Tab 10 Mg PO DAILY 03/12/17 Reported Propranolol ER (Propranolol Hcl) 60 Mg Capcr 60 Mg PO DAILY 03/12/17 Reported Klonopin (Clonazepam) 0.5 Mg Tab 0.5 Mg PO DAILY@2130 04/25/16 Reported Physical Physical Exam Vital Signs: Date Time Temp Pulse Resp B/P (MAP) Pulse Ox O2 Delivery O2 Flow Rate FiO2 07/11/17 12:01 96 Nasal Cannula 4.0 07/11/17 11:57 36.9 56 26 120/77 (91) 96 Nasal Cannula 4.0 07/11/17 11:11 Nasal Cannula 4.0 07/11/17 08:10 93 Nasal Cannula 4.0 07/11/17 08:03 92 Nasal Cannula 4.0 07/11/17 07:57 36.9 56 24 151/81 (104) 92 Nasal Cannula 4.0 07/11/17 07:15 56 12 96 Nasal Cannula 4.0 07/11/17 04:00 93 Nasal Cannula 5.0 07/11/17 03:34 36.9 55 24 149/72 (97) 93 Nasal Cannula 4.0 07/11/17 01:42 58 12 95 Nasal Cannula 4.0 07/11/17 00:01 97 Nasal Cannula 5.0 07/10/17 23:57 37.2 59 14 144/85 (104) 97 Nasal Cannula 5.0 07/10/17 20:00 98 Nasal Cannula 5.0 07/10/17 19:33 36.5 55 18 169/90 (116) 97 Nasal Cannula 5.0 07/10/17 19:25 85 14 97 Nasal Cannula 5.0 07/10/17 16:58 98 Nasal Cannula 5.0 07/10/17 15:43 36.8 55 20 118/68 (85) 98 Nasal Cannula 5.0 07/10/17 15:00 56 20 131/76 97 07/10/17 13:09 53 Eyes: PERRLA, EOMI ENT: NORMAL NASAL EXAM Neck: NORMAL RANGE OF MOTION, NO TENDERNESS Respiratory: BREATH SOUNDS NORMAL, rhonchi Cardiovasular: REGULAR RATE/RHYTHM, NORMAL S1S2, NO M/G/R, NO MURMUR Abdomen: NON TENDER, NO REBOUND Lower Extremities: NO EDEMA Neuro: other (tremor and unsteady gait.) Diagnostics Labs Results Past 24 Hours Test 07/10/17 18:30 Range/Units Urine Color DK YELLOW Urine Appearance CLOUDY CLEAR Urine pH 6.0 4.5-7.5 Urine Specific [place] > 1.045 1.000-1.030 Urine Protein TRACE NEG Urine Glucose (UA) NEG NEG Urine Ketones TRACE NEG Urine Occult Blood NEG NEG Urine Nitrite NEG NEG Urine Bilirubin NEG NEG Urine Urobilinogen NEG NEG Urine Leukocyte Esterase NEG NEG Urine WBC (Auto) 1-5 0-5 /hpf Urine RBC (Auto) 0-4 0-4 /hpf Urine Hyaline Casts (Auto) >30 0-5 /lpf Urine Epithelial Cells (Auto) >30 0-5 /lpf Urine Bacteria (Auto) NEG NEG Urine Renal Epithelial Cells 0-5 /lpf Urine Crystals See comments NONE PRSENT Urine Pathogenic Casts 1-5 GRANULAR CASTS 0 /lpf Urine Mucus PRESENT NONE PRSENT Radiology Interpretation: other (CAT scan of the chest reviewed personally which showed emphysematous changes, the patient does have tree in bud appearance. No lymphadenopathy or nodules the patient.) Impression Assessment and Plan #1 COPD, gold level cannot be determined but I expected to be level III. #2 bronchiolitis secondary to chronic aspiration. The patient does have microaspiration which is Classic for patients with chronic tremor. #3 RMD treated with Klonopin and currently also on levodopa, the former can alter cough reflex inpatients exacerbating microaspiration. However, it is a treatment of choice for RMD. #4 chronic hypoxia. #5 cytosis could lead to hyperviscosity syndrome and initiates clotting in small vessels, however that has been reported extrapulmonary mainly. Plan: #1 start the patient on nasal cannula oxygen with 2 L/m continuously. #2 may increase oxygen to 3 L with an ablation and exercise. #3 change the standing nebulizer treatment to albuterol only as needed. #4 start Spiriva 18 g once daily. Even if he is asymptomatic. #5 he would need follow-up with pulmonary and pulmonary function test as an outpatient. #6 no need for systemic steroids. #7 unfortunately, microaspiration would not be prevented in this patient who has chronic problem such as Parkinson's. #8 continue Klonopin. #9 the patient is on Lexapro which could worsen his RMD symptoms. #10 treatment of thrombocytosis and other entities as you are doing. #11 may shorten the course of antibiotics to only 5 days. No evidence of infectious process. Concerns with leukocytosis although it was chronic leukocytosis. Thank you for your kind referral, will follow.
[2017-07-11] MEDS: BOOST VANILLA PO SCH (20:06)
[2017-07-11] MEDS: CLONAZEPAM 0.5 MG TAB PO SCH (20:06)
[2017-07-11] MEDS: MoRPHine SULFATE 2 MG/ML CARP IV PRN (20:07)
[2017-07-11] MEDS: OXYMETAZOLINE HCL 0.05% NA SPR 15 ML BTL SCH (20:08)
[2017-07-11] MEDS: PRIMIDONE 50 MG TAB PO SCH (20:11)
--- NOTE | 2017-07-11 20:11 | Family Medicine Progress Note ---
Progress Note Date of Service Jul 11, 2017. Subjective Pt evaluation today including: conversation w/ patient, physical exam, chart review, lab review Pain: denied any pain this AM PO Intake: tolerating Voiding: no voiding problems This AM pt reported improved sob. Denied any cp, f/c, n/v, abd pn. Reported hx of parkinson's and RMD. Denied any choking sensation or hx of aspirations post intubations for surgeries. Having cough and post nasal drip and copious clear nasal discharge. Reported smoking until 1.5 years ago Constitutional: No fever, No chills ENT: + nasal symptoms Respiratory: + cough, + shortness of breath Cardiovascular: No chest pain Abdomen: + pain (at incision site), No nausea, No vomiting Male : No dysuria Medications Current Inpatient Medications Medications (Trade) Dose Ordered Sig/Pio Route Start Time Stop Time Status Last Admin Dose Admin Ioversol (Optiray 320) 125 ml UD PRN IV 07/10/17 10:15 07/14/17 10:14 Albuterol Sulfate (Ventolin 0.083% 2.5MG/3ML Neb) 2.5 mg Q4H PRN INH 07/10/17 11:30 08/09/17 11:29 07/11/17 14:24 2.5 MG Levofloxacin 750 mg/Prmx 150 ml @ 100 mls/hr Q24H IV 07/11/17 11:00 07/17/17 10:59 07/11/17 10:23 100 MLS/HR Acetaminophen (Tylenol Tab) 650 mg Q4H PRN PO 07/10/17 11:30 08/09/17 11:29 Al Hydrox/Mg Hydrox/Simethicone (Maalox Max Susp) 15 ml Q4H PRN PO 07/10/17 11:30 08/09/17 11:29 Magnesium Hydroxide (Milk Of Magnesia Susp) 30 ml Q12H PRN PO 07/10/17 11:30 08/09/17 11:29 Zolpidem Tartrate (Ambien Tab) 5 mg HSZ PRN PO 07/10/17 11:30 08/09/17 11:29 Ondansetron HCl (Zofran Inj) 4 mg Q6H PRN IV 07/10/17 11:30 08/09/17 11:29 Morphine Sulfate (MoRPHine SULFATE INJ) 2 mg Q30M PRN IV 07/10/17 11:30 07/24/17 11:29 Polyethylene (Miralax Powder Packet) 17 gm DAILY PRN PO 07/10/17 11:30 08/09/17 11:29 Carbidopa/Levodopa (Sinemet 25/ 100MG Tab) 2 tab TID PO 07/10/17 21:00 08/09/17 20:59 07/11/17 14:54 2 TAB Clonazepam (Klonopin Tab) 0.5 mg DAILY@2130 PO 07/10/17 21:30 08/09/17 21:29 07/10/17 21:03 0.5 MG Docusate Sodium (coLACE CAP) 100 mg BID PO 07/10/17 21:00 08/09/17 20:59 Escitalopram Oxalate (Lexapro Tab) 10 mg DAILY PO 07/11/17 09:00 08/10/17 08:59 07/11/17 08:49 10 MG Ferrous Sulfate (Feosol Tab) 325 mg BID PO 07/10/17 21:00 08/09/17 20:59 07/11/17 08:47 325 MG Pantoprazole Sodium (Protonix Tab) 40 mg BID PO 07/10/17 21:00 08/09/17 20:59 07/11/17 08:49 40 MG Primidone (Mysoline Tab) 75 mg QPM PO 07/10/17 21:00 08/09/17 20:59 07/10/17 21:02 75 MG Propranolol HCl (Inderal [place]) 60 mg DAILY PO 07/11/17 09:00 08/10/17 08:59 07/11/17 08:48 60 MG Enteral Nutritional Formula (Boost) 1 can BID PO 07/11/17 21:00 08/10/17 20:59 Tiotropium [place] (Spiriva Handihaler Inhaler) 1 puff QAM INH 07/12/17 09:00 08/11/17 08:59 Oxymetazoline HCl (Afrin 0.05% Nasal [place]) 1 sprays Q12 NA 07/11/17 21:00 07/14/17 10:00 Objective Vital Signs Date Time Temp Pulse Resp B/P (MAP) Pulse Ox O2 Delivery O2 Flow Rate FiO2 07/11/17 15:59 Nasal Cannula 4.0 07/11/17 15:46 37.0 51 22 173/94 (120) 95 Nasal Cannula 4.0 07/11/17 15:20 Nasal Cannula 4.0 07/11/17 14:15 52 12 97 Nasal Cannula 4.0 07/11/17 12:01 96 Nasal Cannula 4.0 07/11/17 11:57 36.9 56 26 120/77 (91) 96 Nasal Cannula 4.0 07/11/17 11:11 Nasal Cannula 4.0 07/11/17 08:10 93 Nasal Cannula 4.0 07/11/17 08:03 92 Nasal Cannula 4.0 07/11/17 07:57 36.9 56 24 151/81 (104) 92 Nasal Cannula 4.0 07/11/17 07:15 56 12 96 Nasal Cannula 4.0 07/11/17 04:00 93 Nasal Cannula 5.0 07/11/17 03:34 36.9 55 24 149/72 (97) 93 Nasal Cannula 4.0 07/11/17 01:42 58 12 95 Nasal Cannula 4.0 07/11/17 00:01 97 Nasal Cannula 5.0 07/10/17 23:57 37.2 59 14 144/85 (104) 97 Nasal Cannula 5.0 07/10/17 20:00 98 Nasal Cannula 5.0 Physical Exam General Appearance: no apparent distress Eyes: normal inspection, sclerae normal Respiratory/Chest: + decreased breath sounds, + crackles (occasional) Cardiovascular: regular rate, rhythm, no murmur Abdomen: normal bowel sounds, soft, + pertinent finding (localized tenderness over midline incison/sutures; wound open in the center with packing) Extremities: non-tender, no pedal edema Neurologic/Psychiatric: alert, oriented x 3 Assessment and Plan 66 y/o M with Hx of tremors, chronic leukocytosis and thrombocytosis, distal pancreatectomy and splenectomy 2/2 chronic pancreatitis and splenic artery aneurysm on 10/31, GI bleed due to duodenal ulcer 06/03, and abdominal fistula repair (transverse colon to abdominal wall) 07/04. DCd from [facility] 07/09. Presented yesterday with progressive SOB for about a weak. Home health aid reported oxygen sat of 82%. No CP, acute productive cough, n/v. Has a chronic AM cough and waking up with a headache. Has smoked all his life but quit 1.5 yrs ago. Has required 2L O2 during previous admissions without a known etiology likely due to COPD. Hypoxic and hypercarbic respiratory failure likely 2/2 COPD vs. Bronchitis/ bronchiolitis - CTA - atelectasis L> R, bronchiolitis with bronchitis, trace L pleural effusion, small pulm AVM posterior basal segment RLL 6mm, no PE - CXR neg - VBG PCO2 of 71 and PH 7.29 - mild respiratory acidosis - Flu negative - ESR 34, CRP 1.84 - lactate 0.87 - Empiric antibiotic treatment with Levaquin 750 Q24H x 5 days - Scheduled Duonebs Q6H - 02 protocol - Incentive spirometry - Outpatient sleep study to rule out REINA - pulmonology consult will be requested - Hypoxia likely 2/2 COPD gold level III - bronchiolitis 2/2 chronic aspiration - microaspiration classic for pts with chronic tremor and Klonopin can also alter cough reflex and exacerbate aspiration - Continue RMD treatment with Klonopin and Levodopa - Note: lexapro may worsen RMD syms - Continue Levaquin for 5 days empirically - no evidence of infection ( leukocytosis likely chronic) - O2 NC 2L at rest and 3L with activity - Spiriva and albuterol PRN - Follow up outpt with pulm and get PFT Abdominal wound following surgery - no evidence of infection - wound care consulted Tremor - no definitive diagnosis - continue Sinemet and Propranolol Chronic thrombocytosis and leukocytosis - Thrombocytosis explained by history of splenectomy and may worsen in presence of inflammatory process. - Leukocytosis also appears chronic at this point and may need outpt follow-up. Full code DVT: Heparin prophylaxis (states he was receiving heparin during his recent hospital stay without bleeding issues) Resident Physician Supervision Note: I interviewed and examined the patient. Discussed with Dr. Chaudhary and agree with findings and plan as documented in the note. Any exceptions or clarifications are listed here: None Documented By: Joe Keith feeling better no new complaints breathing better vitals noted nad breathing unlabored hypoxia - d/w pt suspect underlying COPD undiagnosed due to being in hospital so much for other things, will manage as such. may need home O2 for a while he is willing, start inhalers, order 2 step. also may have element of deconditioning, almost a critical illness myopathy given his recurrent and prolonged hospital stays, adding a restrictive type element. >30mins face to face almost entirely counselling/educating Resident Involvement: Resident Care Provided Care Provided: Adult Hospital Medicine
[2017-07-12] VITALS (7 sets, daily range): BP systolic 125–160; BP diastolic 73–94; PULSE 48–55; TEMP 36.6–37; O2SAT 93–96
[2017-07-12] MEDS: MoRPHine SULFATE 2 MG/ML CARP IV PRN (03:22)
[2017-07-12] MEDS ORDERED: OXYCODONE HCL IR 5 MG TAB (IMMEDIATE RELEASE) PO PRN (05:00)
[2017-07-12 05:37] LABS: BASO % 0.9 %; BASO ABS # 0.16 K/uL (0-0.2); EOS % 10.1 %; EOS ABS # 1.89 K/uL (0-0.5); HEMATOCRIT 37.1 % (42-52); HEMOGLOBIN 12.1 g/dL (14.0-18.0); IG# 0.11 K/uL (0.00-0.02); LYMPH % 17.9 %; LYMPH ABS # 3.37 K/uL (1.2-3.4); MEAN CELL VOLUME 91.2 fL (80-100); MEAN CORPUSCULAR HEMOGLOBIN 29.7 pg (25-34); MEAN CORPUSCULAR HGB CONC 32.6 g/dl (32-36); MEAN PLATELET VOLUME 10.3 fL (7.4-10.4); MONO % 12.1 %; MONO ABS # 2.28 K/uL (0.11-0.59); NEUT % 58.4 %; NEUT ABS # 10.99 K/uL (1.4-6.5); PLATELET COUNT 1232 K/uL (130-400); RED CELL DISTRIBUTION WIDTH CV 16.2 % (11.5-14.5); RED CELL DISTRIBUTION WIDTH SD 53.7 fL (36.4-46.3)
[2017-07-12 05:48] LABS: ALBUMIN 2.7 gm/dl (3.4-5.0); ALT/SGPT 12 U/L (12-78); AST/SGOT 20 U/L (15-37); BLOOD UREA NITROGEN 9 mg/dl (7-18); CALCIUM 8.6 mg/dl (8.5-10.1); CARBON DIOXIDE 32 mmol/L (21-32); CREATININE 0.71 mg/dl (0.60-1.40); GLUCOSE 78 mg/dl (70-99); POTASSIUM 3.8 mmol/L (3.5-5.1); SODIUM 137 mmol/L (136-145)
[2017-07-12 05:50] LABS: ALKALINE PHOSPHATASE 233 U/L (45-117); TOTAL PROTEIN 6.3 gm/dl (6.4-8.2)
[2017-07-12] MEDS: DOCUSATE SODIUM 100 MG CAP PO SCH (08:05)
--- NOTE | 2017-07-12 08:05 | Clinical Documentation Query ---
Dr. RIZZO, [facility] : CLINICAL DOCUMENTATION QUERY Patient is a 67 year old male admitted for evaluation and treatment of bronchiolitis secondary to chronic aspiration. He is being treated with O2, nebulizers, Spiriva, Levaquin, incentive spiromentry and pulmonary consultation. In your clinical opinion is this patient being managed for: ( ) Aspiration pneumonitis, treated with O2, nebulizers, Spiriva, and Levaquin in the setting of known microaspiration, COPD, essential tremor, and Klonopin use ( ) Not Agree ( ) Other explanation of clinical findings (Please Explain) ( ) Unable to determine (Please Define) ( ) Need to Discuss The medical record reflects the following clinical findings, treatment, and risk factors. Clinical Indicators: As above Treatment: As above Risk Factors: Chronic aspiration in the setting of chronic tremor Please clarify and document your clinical opinion in the progress notes and discharge summary. Terms such as "probable", "suspected", "likely", "questionable", "possible", or "still to be ruled out" are acceptable. IF IN AGREEMENT, YOU MUST DOCUMENT ABOVE DIAGNOSTIC STATEMENT IN DAILY PROGRESS NOTES AND DISCHARGE SUMMARY. This document is not part of the patient's record. Thank You, Bernardo Jimenez, TED [phone]
[2017-07-12] MEDS: BOOST VANILLA PO SCH (08:07)
[2017-07-12] MEDS: PANTOprazole SOD 40 MG TAB PO SCH (08:08)
[2017-07-12] MEDS: OXYMETAZOLINE HCL 0.05% NA SPR 15 ML BTL SCH (08:08)
[2017-07-12] MEDS: CARBIDOPA/LEVODOPA 25/100MG TAB PO SCH ×2 (08:08→14:27)
[2017-07-12] MEDS: FERROUS SULFATE 325 MG TAB PO SCH (08:08)
[2017-07-12] MEDS: PROPRANOLOL HCL 60 MG LA CAP PO SCH (08:09)
[2017-07-12] MEDS: ESCITALOPRAM OXALATE 10 MG TAB PO SCH (08:09)
[2017-07-12] MEDS ORDERED: TIOTROPIUM BROMIDE 5 PUFF/90 MCG INH INH SCH (09:00)
[2017-07-12] MEDS ORDERED: FLUTICASONE/SALMETEROL 250/50 (ADVAIR) 14 PUFF/1 INHALER INH SCH (09:00)
[2017-07-12] MEDS: LEVOFLOXACIN / D5W 750 MG in PREMIXED IN D5W 150 ML IV SCH (10:34)
[2017-07-12] MEDS ORDERED: VNTHFA/IN INH (13:38)
[2017-07-12] MEDS ORDERED: SPRIN INH (13:38)
[2017-07-12] MEDS ORDERED: ADVIN25050 INH (13:38)
[2017-07-12] MEDS ORDERED: LEVO1TAB35 PO (13:38)
--- NOTE | 2017-07-12 13:52 | Discharge Instructions ---
Discharge Instructions Date of Service Jul 12, 2017. Admission Reason for Admission: Bronchiolitis, Hypoxia Discharge Discharge Diagnosis / Problem: hypoxic and hypercarbic respiratory failure Discharge Goals Goal(s): Decrease discomfort, Diagnostic testing, Therapeutic intervention Activity Recommendations Activity Limitations: resume your previous activity . Instructions / Follow-Up Instructions / Follow-Up Mr. Chong suarez were admitted for increased shortness of breath. You were seen by our pulmonologists (lung doctors) and believed to have COPD (chronic obstructive pulmonary disease) likely from your years of smoking history. We treated you for a potential pneumonia given your poor health and a slightly concerning chest x-ray. You were also started on inhalers to treat your COPD: Advair, Spiriva and albuterol which you will need to continue using as instructed below. You also required continuos oxygen and needed to be discharged with oxygen. We arranged for you to go home with oxygen. Please follow the following instructions: - Please use your Spiriva inhaler once a day in the morning along with your Advair inhaler after which you should rinse your mouth to prevent developing oral thrush - Please use your Advair inhaler in the evening as well before bed time and rinse your mouth - Please use your albuterol inhaler as needed for increased shortness of breath/ chest tightness - You can use Albuterol 2 puffs every 20 minutes up to 4 times if needed for severe shortness of breath initially and then 2 puffs every 4 hours - If you have moderate to mild shortness of breath use 2 puffs every 4 hours - Please take antibiotic, Levaquin 750mg once a day for 3 days - Please use oxygen continuously (on 2 liters) - Please use your other home medications as prescribed (see list of continued medications in discharge instructions) - Please follow up with pulmonology as scheduled and obtain a pulmonary function test - Follow up with Dr. Abdul within 1 week of discharge from the hospital for follow up Current Hospital Diet Patient's current hospital diet: Low Fiber Diet Discharge Diet Recommended Diet: Regular Diet, AHA Diet (Heart Healthy) Pending Studies Studies pending at discharge: no Medical Emergencies . Who to Call and When: Medical Emergencies: If at any time you feel your situation is an emergency, please call 911 immediately. . Non-Emergent Contact Non-Emergency issues call your: Primary Care Provider . . "Provider Documentation" section prepared by Rahiba Noor. . VTE Core Measure Inpt VTE Proph given/why not?: Unfractionated heparin SQ
--- NOTE | 2017-07-12 14:10 | Discharge Summary ---
Discharge Summary Date of Service Jul 12, 2017. 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 Coronal and sagittal MIPS were obtained from the axial data set and were submitted for review. A dose lowering technique was utilized adhering to the principles of ALARA. COMPARISON: Chest 03/13/2017, CTA 05/14/2016. FINDINGS: CTA: Mild cardiomegaly with coronary arterial disease. The thoracic aorta is normal in both course and caliber without aneurysm or dissection. Moderate atherosclerosis of the aorta. Image great vessels are patent. Stent graft of the celiac trunk is noted with the upper abdominal aorta not well opacified secondary to contrast bolus timing. The pulmonary arterial tree is opacified to level of the proximal subsegmental branches and demonstrates no focal filling defects to suggest pulmonary thromboembolic disease. 5 x 3 x 6 mm enhancing focus adjacent to a terminal branch of a posterior basal segment of the right lower lobe pulmonary artery suggests a small pulmonary AVM as seen on image 73 series 4 and image [address] CHEST: Thyroid is heterogeneous and appears enlarged. No pathologically enlarged lymph nodes about the chest identified. Trace left pleural effusion with subsegmental dependent bibasilar opacities, left greater than right. Mild centrilobular and paraseptal emphysematous changes without pneumothorax. No suspicious pulmonary nodules or masses identified. There is minimal tree-in-bud nodularity of the left lower lobe as seen on image 157 series 4 and a peripheral distribution. Central airways are patent with mild bibasilar bronchial wall thickening. Mild nonspecific perinephric stranding is noted bilaterally. Mild mesenteric edema. Multiple midline anterior skin lucrecia are noted. Soft tissues are unremarkable. IMPRESSION: 1. No acute aortic pathology or evidence of pulmonary thromboembolic disease. 2. Trace left pleural effusion with dependent bibasilar consolidative opacities, left greater than right suggesting compressive atelectasis. Additionally, there are areas of tree-in-bud nodularity within the left lower lobe with associated bibasilar bronchial wall thickening suggesting bronchiolitis with bronchitis. 3. Suggested small pulmonary AVM of the posterior basal segment right lower lobe as above measuring up to 6 mm. CHEST ONE VIEW PORTABLE HISTORY: Sepsis COMPARISON: Chest 06/17/2017. FINDINGS: The lungs are clear. Cardiac silhouette is normal in size. No pleural effusions. No pneumothorax. Postoperative changes within the epigastric region. IMPRESSION: No acute process. Consultations: Pulmonology - Dr. Simmons Medication Reconciliation New Medications: Albuterol Hfa (Ventolin Hfa) 200 Puffs/48719 Mcg Aers 2 PUFFS INH Q4H PRN for SOB/Wheezing, #1 INHALER Levofloxacin (Levaquin) 750 Mg Tab 750 MG PO DAILY for 3 Days, #3 TAB Fluticasone Prop/Salmeterol (Advair Diskus 250-50 Mcg/Dose) 14 Puff/1 Inhaler Aerp 1 PUFF INH BID for 30 Days, #60 PUFF Tiotropium [place] (Spiriva Handihaler) 5 Puff/90 Mcg Aerp 1 PUFF INH QAM for 30 Days, #30 PUFF Continued Medications: Carbidopa/Levodopa (Sinemet 25MG/100MG) Tab 2 TAB PO TID, TAB Clonazepam (Klonopin) 0.5 Mg Tab 0.5 MG PO DAILY@2130, TAB Docusate Sodium (Colace) 100 Mg Cap 1 CAP PO BID for 30 Days, #60 CAP Escitalopram (Lexapro) 10 Mg Tab 10 MG PO DAILY, TAB Ferrous Sulfate (Ferrous Sulfate) 325 Mg Tab 325 MG PO BID, #60 TABS 2 Refills Pantoprazole (Pantoprazole Sodium) 40 Mg Tab 40 MG PO BID, #60 TAB 1 Refill Primidone (Mysoline) 50 Mg Tab 75 MG PO QPM, TAB Propranolol Hcl (Propranolol ER) 60 Mg Capcr 60 MG PO DAILY Discharge Exam Review of Systems: Constitutional: No fever, No chills Respiratory: No shortness of breath (with O2) Cardiovascular: No chest pain Abdomen: + pain (over midline incision), No nausea, No vomiting Genitourinary - Male: No dysuria Physical Exam: General Appearance: no apparent distress Eyes: normal inspection, sclerae normal Respiratory/Chest: normal breath sounds, + crackles (bibasilar) Cardiovascular: regular rate, rhythm, no murmur Abdomen / GI: normal bowel sounds, soft, + tenderness (mild over midline incision/fistula repair site) Extremities: no calf tenderness, no pedal edema Neurologic/Psychiatric: alert, oriented x 3 Skin: + pertinent finding (midline abdominal incision with lucrecia from surgery ) Hospital Course 66 y/o M with Hx of tremors, chronic leukocytosis and thrombocytosis, distal pancreatectomy and splenectomy 2/2 chronic pancreatitis and splenic artery aneurysm on 10/31, GI bleed due to duodenal ulcer 06/03, and abdominal fistula repair (transverse colon to abdominal wall) 07/04. DCd from [facility] 07/09. Presented with progressive SOB for about a weak. Home health aid reported oxygen sat of 82%. No CP, acute productive cough, n/v. Has a chronic AM cough and waking up with a headache. Has smoked all his life but quit 1.5 yrs ago. Has required 2L O2 during previous admissions without a known etiology likely due to COPD. Hypoxic and hypercarbic respiratory failure likely 2/2 COPD vs. Bronchitis/ bronchiolitis - CTA - atelectasis L> R, bronchiolitis with bronchitis, trace L pleural effusion, small pulm AVM posterior basal segment RLL 6mm, no PE - CXR neg - VBG PCO2 of 71 and PH 7.29 - mild respiratory acidosis - Flu negative - ESR 34, CRP 1.84 - lactate 0.87 - Empiric antibiotic treatment with Levaquin 750 Q24H x 5 days - Received Scheduled Duonebs Q6H - Was on protocol - Incentive spirometry - pulmonology consult will be requested - Hypoxia likely 2/2 COPD gold level III - bronchiolitis 2/2 chronic aspiration - microaspiration classic for pts with chronic tremor and Klonopin can also alter cough reflex and exacerbate aspiration - Continued RMD treatment with Klonopin and Levodopa - Note: lexapro may worsen RMD syms - Continue Levaquin for 5 days empirically - no evidence of infection ( leukocytosis likely chronic) - O2 NC 2L at rest and 3L with activity - Spiriva and albuterol PRN - Follow up outpt with pulm and get PFT - Outpatient sleep study to rule out REINA - Discharged with Levaquin 750mg daily x 3 days - Discharged with albuterol PRN, Spiriva and advair inhalers as well as O2 for COPD Abdominal wound following surgery - no evidence of infection - wound care was consulted Tremor - no definitive diagnosis - continued Sinemet and Propranolol Chronic thrombocytosis and leukocytosis - Thrombocytosis explained by history of splenectomy and may worsen in presence of inflammatory process. - Leukocytosis also appears chronic at this point and may need outpt follow-up. Full code DVT: Heparin prophylaxis (states he was receiving heparin during his recent hospital stay without bleeding issues) Resident Physician Supervision Note: I interviewed and examined the patient. Discussed with Dr. Chaudhary and agree with findings and plan as documented in the note. Any exceptions or clarifications are listed here: None Documented By: Joe Keith feelign ok to go home vitals noted nad breathing unlabored no pallor or icterus hypoxia - probably undiagnosed COPD and also likely elements of critical illness myopathy / deconditioning -O2, management w inhalers as moderate COPD, pulmonary and PCP f/u, wean O2 as possible, then ongoing inhalers based on PFTs and symptoms Total Time Spent: Less than 30 minutes This includes examination of the patient, discharge planning, medication reconciliation, and communication with other providers. Discharge Instructions Please refer to the electronic Patient Visit Report (Discharge Instructions) for additional information. Additional Copies To Chino Abdul MD; Makeda Chaudhary M.D.
--- NOTE | 2017-07-12 15:56 | Pulmonology Progress Note ---
Pulmonary Progress Note Date of Service Jul 12, 2017. Attending Dr. Simmons Subjective The patient is a symptomatically today from pulmonary standpoint. His rhinorrhea has improved. He developed epistaxis likely from dry oxygen. He denies any postnasal drip or cough no hemoptysis and no chest pain. No shortness of breath reported today. No fever or constitutional symptoms. He continued to have tremor. Objective As above, no new symptoms, no events overnight. Assessment & Plan #1 COPD. #2 rhinitis. #3 acute hypoxic respiratory failure. This is likely representing also chronic hypoxic respiratory failure. #4 bronchiolitis localized mainly in the lower lobes highly suspicious for microaspiration in a patient with history of tremor and Parkinson's. #5 RMD. Plan: #1 continue Spiriva and albuterol. #2 continue oxygen even at home. #3 the patient needs follow-up with pulmonary as an outpatient. #4 palmarly function tests as an outpatient. #5 continue with the Klonopin for RMD. #6 [place]. #7 humidified oxygen. #8 discussed in detail with the patient and his at the bedside. Thank you, will follow. Data Medications: Current Inpatient Medications Medications (Trade) Dose Ordered Sig/Pio Route Start Time Stop Time Status Last Admin Dose Admin Ioversol (Optiray 320) 125 ml UD PRN IV 07/10/17 10:15 07/14/17 10:14 Albuterol Sulfate (Ventolin 0.083% 2.5MG/3ML Neb) 2.5 mg Q4H PRN INH 07/10/17 11:30 08/09/17 11:29 07/11/17 14:24 2.5 MG Levofloxacin 750 mg/Prmx 150 ml @ 100 mls/hr Q24H IV 07/11/17 11:00 07/17/17 10:59 07/12/17 10:34 100 MLS/HR Acetaminophen (Tylenol Tab) 650 mg Q4H PRN PO 07/10/17 11:30 08/09/17 11:29 Al Hydrox/Mg Hydrox/Simethicone (Maalox Max Susp) 15 ml Q4H PRN PO 07/10/17 11:30 08/09/17 11:29 Magnesium Hydroxide (Milk Of Magnesia Susp) 30 ml Q12H PRN PO 07/10/17 11:30 08/09/17 11:29 Zolpidem Tartrate (Ambien Tab) 5 mg HSZ PRN PO 07/10/17 11:30 08/09/17 11:29 Ondansetron HCl (Zofran Inj) 4 mg Q6H PRN IV 07/10/17 11:30 08/09/17 11:29 Morphine Sulfate (MoRPHine SULFATE INJ) 2 mg Q30M PRN IV 07/10/17 11:30 07/24/17 11:29 07/12/17 03:22 2 MG Polyethylene (Miralax Powder Packet) 17 gm DAILY PRN PO 07/10/17 11:30 08/09/17 11:29 Carbidopa/Levodopa (Sinemet 25/ 100MG Tab) 2 tab TID PO 07/10/17 21:00 08/09/17 20:59 07/12/17 14:27 2 TAB Clonazepam (Klonopin Tab) 0.5 mg DAILY@2130 PO 07/10/17 21:30 08/09/17 21:29 07/11/17 20:06 0.5 MG Docusate Sodium (coLACE CAP) 100 mg BID PO 07/10/17 21:00 08/09/17 20:59 07/11/17 20:09 100 MG Escitalopram Oxalate (Lexapro Tab) 10 mg DAILY PO 07/11/17 09:00 08/10/17 08:59 07/12/17 08:09 10 MG Ferrous Sulfate (Feosol Tab) 325 mg BID PO 07/10/17 21:00 08/09/17 20:59 07/12/17 08:08 325 MG Pantoprazole Sodium (Protonix Tab) 40 mg BID PO 07/10/17 21:00 08/09/17 20:59 07/12/17 08:08 40 MG Primidone (Mysoline Tab) 75 mg QPM PO 07/10/17 21:00 08/09/17 20:59 07/11/17 20:11 75 MG Propranolol HCl (Inderal [place]) 60 mg DAILY PO 07/11/17 09:00 08/10/17 08:59 07/12/17 08:09 60 MG Enteral Nutritional Formula (Boost) 1 can BID PO 07/11/17 21:00 08/10/17 20:59 07/12/17 08:07 1 CAN Tiotropium [place] (Spiriva Handihaler Inhaler) 1 puff QAM INH 07/12/17 09:00 08/11/17 08:59 07/12/17 08:08 1 PUFF Oxymetazoline HCl (Afrin 0.05% [place]) 1 sprays Q12 NA 07/11/17 21:00 07/14/17 10:00 07/12/17 08:08 1 SPRAYS Oxycodone HCl (Roxicodone Immediate Rel Tab) 5 mg Q6H PRN PO 07/12/17 05:00 07/26/17 04:59 Salmeterol Xinafoate/ Fluticasone (Advair Diskus 250/50 Inh) 1 puff BID INH 07/12/17 09:00 08/11/17 08:59 07/12/17 10:34 1 PUFF I & O: 24-Hour Column 07/13/17 08:00 Intake Total 620 ml Output Total 600 ml Balance 20 ml Vital Signs: Date Time Temp Pulse Resp B/P (MAP) Pulse Ox O2 Delivery O2 Flow Rate FiO2 07/12/17 13:05 50 94 07/12/17 12:08 36.6 55 12 125/73 (90) 94 Room Air 07/12/17 11:30 93 Nasal Cannula 2.0 07/12/17 08:00 93 Nasal Cannula 2.0 07/12/17 07:50 36.7 48 22 160/86 (110) 96 Nasal Cannula 3.0 07/12/17 04:18 37.0 52 18 151/94 (113) 94 Nasal Cannula 3.0 07/12/17 04:00 Nasal Cannula 3.0 07/11/17 23:59 Nasal Cannula 4.0 07/11/17 23:13 37.2 54 17 176/92 (120) 96 Nasal Cannula 4.0 07/11/17 20:00 37.0 56 16 172/92 (118) 95 Nasal Cannula 4.0 07/11/17 20:00 Nasal Cannula 4.0 07/11/17 15:59 Nasal Cannula 4.0 Laboratory Results: Last 24 Hours Test 07/12/17 05:13 White Blood Count 18.80 K/uL Red Blood Count 4.07 M/uL Hemoglobin 12.1 g/dL Hematocrit 37.1 % Mean Corpuscular Volume 91.2 fL Mean Corpuscular Hemoglobin 29.7 pg Mean Corpuscular Hemoglobin Concent 32.6 g/dl Platelet Count 1232 K/uL Mean Platelet Volume 10.3 fL Neutrophils (%) (Auto) 58.4 % Lymphocytes (%) (Auto) 17.9 % Monocytes (%) (Auto) 12.1 % Eosinophils (%) (Auto) 10.1 % Basophils (%) (Auto) 0.9 % Neutrophils # (Auto) 10.99 K/uL Lymphocytes # (Auto) 3.37 K/uL Monocytes # (Auto) 2.28 K/uL Eosinophils # (Auto) 1.89 K/uL Basophils # (Auto) 0.16 K/uL RDW Standard Deviation 53.7 fL RDW Coefficient of Variation 16.2 % Immature Granulocyte % (Auto) 0.6 % Immature Granulocyte # (Auto) 0.11 K/uL Sodium Level 137 mmol/L Potassium Level 3.8 mmol/L Chloride Level 102 mmol/L Carbon Dioxide Level 32 mmol/L Anion Gap 3.0 mmol/L Blood Urea Nitrogen 9 mg/dl Creatinine 0.71 mg/dl Est Creatinine Clear Calc Drug Dose 99.0 ml/min Estimated GFR () 113.3 Estimated GFR (Non- 97.8 BUN/Creatinine Ratio 13.2 Random Glucose 78 mg/dl Calcium Level 8.6 mg/dl Total Bilirubin 0.3 mg/dl Direct Bilirubin < 0.1 mg/dl Aspartate Amino Transf (AST/SGOT) 20 U/L Alanine Aminotransferase (ALT/SGPT) 12 U/L Alkaline Phosphatase 233 U/L Total Protein 6.3 gm/dl Albumin 2.7 gm/dl
[2017-07-12] MEDS ORDERED: SODIUM CHLORIDE 0.65% NA SOLN 45 ML (OCEAN) SCH (21:00)
== END 2017-07-12 17:59 | disposition home health service (06) | DRG 202 ==
LOC: C.EDB 08:51 → C.2E 11:30 → ENRESERV 14:24
PROVIDERS: ADMIT Internal Medicine; ATTEND Family Medicine
DX: J21.9 Acute bronchiolitis, unspecified (principal); J96.21 Acute and chronic respiratory failure with hypoxia; I10 Essential (primary) hypertension; R25.1 Tremor, unspecified; R04.0 Epistaxis; Z87.891 Personal history of nicotine dependence; Z79.899 Other long term (current) drug therapy

== ENCOUNTER → 2017-08-07 | Outpatient (CLI) | payer BC, OTHER ==
[~2017-08-07] MED LIST changes: +ADVIN25050 INH; +SPRIN INH; +VNTHFA/IN INH
--- NOTE | 2017-08-08 05:54 | PAP/PSG TECHNICIAN REPORT ---
[facility] Boiler Service Technician Polysomnogram Report Study name: None Report date: 08/08/2017 Study date: 08/07/2017 Referring Physician: Wellington Toussaint MD Name: ALEJANDRA SCHWARZ Interpreting Physician: Jon Bangura D.O. Date of : 1950 Boiler Service Technician: Destini Huddleston RPSGT. Sex: Male Age: 67 StudyType: PSG Weight: 151 lbs Height: 67 years, Height 5' 8" BMI: 22.96 Medications: Primidone 50 mg, Propranolol 60 mg, Advair 250-50 mcg, Aspirin 81 mg, Clonazepam 0.5 mg, Colace 100 mg, Escitalopram 5 mg, Omeprazole 20 mg, Sinemet 20-100 mg, Spiriva 18 mcg Patient History 67 yr. old male here for a diagnostic sleep study. Patient has a complex medical history. Patient is currently on nocturnal 02, and has REM behavior disorder. ESS 07/10. Test started on room air Parameters Monitored NPSG: E1-M2, E2-M1, Fp1-M2, Fp2-M1, F3-M2, F4-M2, F4-M1, C3-M2, C4-M2, C4-M1, O1-M2, O2-M2, O2-M1, T3-M2, T4-M1, P3-M2, P4-M1, CHIN1, CHIN2, HR, EKG, Legs, PFLOW, SNOR, FLOW, CFLOW, Tidal Volume, THOR, ABDO, SpO2, PLTH, CPRESS, ETCO2 Wave, ETCO2, pH Sleep Architecture Sleep Stages Time at Lights Off 11:04:49 PM STAGES Time (min.) TST (%) Time at Lights On 5:39:49 AM Wake 73.5 -- Total Recording Time (TRT) 394.50 min. N1 18.5 6 Total Sleep Period (TSP) 376.0 min. N2 254.0 79 Total Sleep Time (TST) 321.0min. N3 13.0 4 Awake Time 73.5 min. REM 35.5 11 Wake after Sleep Onset 55.0 min. Sleep Efficiency (SE) 81 % Sleep Onset Latency (JOSH) 19.0 min. Number of Stage 1 Shifts None Awakenings 8 Stage Changes 46 Number of REM periods 2 REM 35.5 11 REM Latency 222.5 min. NREM 285.5 89 Body Position Analysis Supine Right Left Side Prone Vertical Total Sleep Time (min.) 247.1 114.2 0.0 114.25 0.0 8.3 Total Sleep Time (%) 64% 36% 0% 36 0% N/A% Total Sleep Time REM (min.) 22.5 13.0 0.0 None 0.0 0.0 Total Sleep Time NREM (min.) 184.3 101.2 0.0 None 0.0 0.0 Intermittent Wake (min.) 40.3 23.1 0.0 None 0.0 8.3 Total Sleep Period (%) 66% None None None None None Arousals Myoclonus (PLM) * Events Count Index Events Count Index Spontaneous 5 1 Events Awake (PLMW) 36 29.4 Respiratory 0 0.0 Events Asleep w/ Arousal (PLMA) 10 1.9 PLM 10 2 Events Asleep w/o Arousal (PLMS) 425 79.4 Snoring 10 2 Total Asleep 435 81.3 Total 23 4 Total 471 72 Respiratory Analysis * CA OA MA CH H RERA Total Count 0 9 0 0 10 0 19 Index 0.0 1.7 0.0 0 1.9 0 3.6 Mean Duration 0.0 14.5 0.0 0.00 26.2 0.0 20.7 Longest Duration 0.0 20.0 0.0 0.00 0.0 0.0 43.0 Respiratory Event Summary Total Supine ~Supine Right Left Prone REM NREM Apneas Count 9 9 0 0 N/A N/A 1 8 Index 1.7 3 0 0.0 N/A N/A 2 2 Hypopneas (4% Desat) Count 10 10 0 0 N/A N/A 0 10 Index 1.9 2.9 0 0.0 N/A N/A 0.0 2.1 Apneas & All Hypopneas Count 19 19 0 0 N/A N/A 1 18 Index 3.6 6 0 0 N/A N/A 1.7 3.8 Respiratory Events (Barn Operator+All Hyp+RERA) Count 19 19 0 0 N/A N/A 1 18 Index 3.6 6 0 0.0 N/A N/A 1.7 3.8 Respiratory Related Arousal Count 0 19 0 0 N/A N/A 0 0 Index 0.0 0 0 0 N/A N/A 0 0 Snoring Analysis Supine Right Left Prone REM NREM Total Snore duration 41.6 min Snores count 1,774 194 N/A N/A 101 1,867 1,968 Snore mean duration 1.3 Sec Snores index 515 102 N/A N/A 170.7 392.4 367.9 TST with snoring (%) 13.0% Desaturation Event Summary: Minimum %SpO2 Event Count Mean/Min/Max Duration(sec.) Desaturation Index % Time In Bed > 90 10 28.2 / 6.5 / 40.8 3.9 41.0 86 - 90 5 13.5 / 6.5 / 22.8 1.5 52.5 81 - 85 1 12.0 / 12.0 / 12.0 2.5 6.5 76 - 80 0 N/A 0.0 0.0 71 - 75 0 N/A 0.0 0.0 66 - 70 0 N/A 0.0 0.0 61 - 65 0 N/A 0.0 0.0 56 - 60 0 N/A 0.0 0.0 51 - 55 0 N/A 0.0 0.0 < 50 0 N/A 0.0 0.0 Total REM NREM Awake <50% 0.0 min. 0.0 min. 0.0 min. 0.0 min. 51 - 60% 0.0 min. 0.0 min. 0.0 min. 0.0 min. 61 - 70% 0.0 min. 0.0 min. 0.0 min. 0.0 min. 71 - 80% 0.2 min. 0.0 min. 0.0 min. 0.2 min. 81 - 90% 223.6 min. 10.2 min. 169.9 min. 43.5 min. 91 - 100% 155.2 min. 25.3 min. 115.6 min. 14.3 min. Average 90 91 89 89 Minimum SpO2 80 89 82 80 Desaturation Event Index 2.1 1.7 2.7 0.0 # Desat. Events below 89% 7 N/A 7 N/A Time(%) with Saturation below 89% 31.2 0.0 26.0 5.3 Time(min.) with Saturation below 89% 118.4 0.0 98.4 20.0 Time (mins) REM (mins) NREM (mins) % of TST SpO2 Below 90% 14 1 N13 34.6 SpO2 Below 88% 2 0 0 26 Heart Rate Analysis Min (bpm) Max (bpm) Average (bpm) Awake 50 150 64 NREM 48 73 56 REM 49 62 54 Overall 48 73 55 Supplemental O2 Values Minimum O2 level: None Value Start Time End Time Boiler Service Technician Comments Test was started on room air. After Mr. Schwarz was in bed for 121.5 minutes 1 liter supplemental oxygen was added. Mr. Schwarz was under 89% for 97.1 minutes and had an AHI of 1.8. Mr. Schwarz had REM behavior disorder. He was yelling out and had major body movements. He was talked to through the intercom to wake him when his hand went towards his face. Mr. Schwarz slept in the right and supine positions. No cardiac arrhythmia. PLMs noted. No bruxism noted. Snoring was noted and scored as a 4 on a scale of 0 through 5. (0=no snoring, 5=snoring loud enough to be heard through a closed door or down the lowe way) Mr. Schwarz awoke to use the restroom two times during the night. Mr. Schwarz stated, that was a normal night. The final report will be interpreted and signed by a sleep physician. The completed physician report will then be placed in the patient medical record. Therapy (cm H2O) 0 TIB (min.) 394.5 TST (min.) 321.0 Sleep Onset (min.) 19.0 REM Onset From Sleep (min.) 222.5 Sleep Efficiency % 81 Wakefulness (%) 19 Wakefulness (min.) 73.5 NREM 1 (%) 6 NREM 1 (min.) 18.5 NREM 2 (%) 79 NREM 2 (min.) 254.0 NREM 3 (%) 4 NREM 3 (min.) 13.0 REM (%) 11 REM (min.) 35.5 # Arousals 23 Arousal Index 4 # Snore 1,968 Snore Index 367.9 AHI 3.6 AHI Supine 6 AHI Non-Supine 0 NREM AHI 3.8 REM AHI 1.7 RDI 3.6 # Obstructive Apnea 9 # Central Apnea 0 # Mixed Apnea 0 # Hypopneas 10 RERAs 0 Total Respiratory Events 19 Time Below SpO2 89% (min.) 98.4 Mean NREM SpO2 (%) 89 Mean REM SpO2 (%) 91 Mean Sleep SpO2 (%) 90 Min NREM SpO2 (%) 82 Min REM SpO2 (%) 89 Position Supine (min.) 247.1 Position Non-supine (min.) 114.2 LM Index Sleep 81.3 LM Index NREM 82.6 LM Index REM 71.0 Mean Heart Rate (bpm) 55 Min Heart Rate (bpm) 48
--- NOTE | 2017-08-11 11:31 | Sleep Study ---
Sleep Study Report Date of Service: 08/07/2017 Sleep Study Report CLINICAL DATA: The patient is a 67-year-old male who has nocturnal hypoxia. He has a history of REM behavior disorder. He is referred to rule out obstructive sleep apnea. His [place] Sleepiness Scale score is 1. SLEEP ARCHITECTURE: The sleep period time was 376 minutes. The total sleep time is 321 minutes. The sleep efficiency was modestly reduced to 81 percent. The sleep latency was 19 minutes. Wake after sleep onset was increased to 55 minutes. The REM latency was prolonged to 222.5 minutes. There were 2 REM periods during the night. Sleep consisted of stage N1 6 percent, stage N2 79 percent, stage N3 4 percent, stage REM 11 percent. AROUSAL DATA: The patient had 23 arousals including 5 spontaneous arousals, 10 PLM arousals, and 10 snoring arousals. The arousal index was 4. PLM DATA: The patient had 435 periodic limb movements of sleep for a PLM index of 81.3. There were only 10 arousals associated with limb movements for a PLM arousal index of 1.9. EKG: The underlying cardiac rhythm was normal sinus. The cardiac rates 48-73 beats per minute. The average heart rate was 55 beats per minute. No a arrhythmias were noted. RESPIRATORY DATA: The patient had a total of 19 respiratory events including 9 obstructive apneas and 10 hypopneas. Hypopneas were scored according to the 4 percent desaturation rule. The longest apnea was 20 seconds. The mean duration of the hypopneas was 26.2 seconds. The apnea-hypopnea index was 3.6 events per hour. This would suggest no significant sleep apnea. OXIMETRY DATA: The average saturation for the night was 90 percent. The minimum saturation was 80 percent. There was a total of 118.4 minutes with saturations less than 89 percent. The patient was treated with 1 liter of oxygen after approximately 2 hours due to hypoxia. OPTOMETRY TEACHER COMMENTS: The study was started on room air. After the patient was in bed for 121.5 minutes 1 liter of supplemental oxygen was added. He was under 89 percent for 97.1 minutes and had an AHI of 1.8. The patient had REM behavior disorder. He was yelling out and had major body movements. He was talked to through the inter calmed to wake him when his hands went towards his face. The patient slept on the right and supine positions. No cardiac arrhythmia. PLMS noted. No bruxism noted. Snoring was noted and scored as a 4 on a scale of 0 through 5. The patient awaken to use the restroom 2 times during the night. IMPRESSIONS: 1. No evidence of significant obstructive sleep apnea 2. Periodic limb movement disorder 3. REM behavior disorder 4. Nocturnal hypoxia COMMENTS: Mr. Schwarz had no significant sleep apnea. He did have very frequent periodic limb movements but with relatively few arousals. Clinical correlation is required to determine if he may have restless leg syndrome. He does take as citalopram which could increase the limb movements. It would be advised that a serum ferritin level be checked to make certain he does not have iron deficiency as a contributing factor towards the limb movement disorder. He has a history of REM behavior disorder and had an episode of this problem during the study. It occurred during the 1st REM episode slightly after 3 a.m.. It is unknown if he took his clonazepam as he usually does on the night of this study.. He is listed is having a dosage of clonazepam of 0.5 milligrams. He may need an increased dose if indeed he had taken the clonazepam the night of the study but still had the REM behavior disorder. He did have hypoxia that improved with low-flow oxygen. RECOMMENDATIONS: 1. The patient should continue with his nocturnal oxygen therapy at home. 2. Suggest clinical correlation to rule out restless leg syndrome. 3. Advised checking a serum ferritin level and if it is less than 50, advise iron supplementation. 4. The patient may need an adjustment in the clonazepam as noted above. Copies To 1: Chino Abdul MD; Jon Bangura DO; Wellington Toussaint M.D.
== END | disposition home or self-care (01) ==
LOC: C.NEUR 21:00
PROVIDERS: ATTEND Internal Medicine Pulmonary Disease
DX: J84.10 Pulmonary fibrosis, unspecified (principal); G47.61 Periodic limb movement disorder; G47.52 REM sleep behavior disorder; R09.02 Hypoxemia

== ENCOUNTER → 2017-09-23 | Outpatient (CLI) | payer BC ==
--- NOTE | 2017-09-23 14:46 | DIAGNOSTIC IMAGING REPORT ---
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 TECHNIQUE: PA and lateral views of the chest were obtained. COMPARISON: 07/10/2017. FINDINGS: Atherosclerosis of aortic arch. Cardiac silhouette enlarged. Suspected loculated small left pleural effusion. No significant opacity within the lungs. No pneumothorax. Degenerative changes of the right glenohumeral joint. Cholecystectomy clips noted in addition to a vascular stent and endovascular coils in the epigastrium. IMPRESSION: 1. Suspected loculated small left pleural effusion. No convincing evidence of a focal infiltrate in the lungs. Electronically signed by: Duane Cisneros M.D. 09/23/2017 2:45 PM Dictated Date/Time: 09/23/2017 2:41 PM
== END | disposition home or self-care (01) ==
LOC: C.RAD 14:08
PROVIDERS: ATTEND Internal Medicine Pulmonary Disease
DX: J84.10 Pulmonary fibrosis, unspecified (principal)

== ENCOUNTER → 2017-10-08 | Outpatient (CLI) | payer BC ==
[~2017-10-08] MED LIST changes: +OPTIRAY 320 IV PRN
--- NOTE | 2017-10-08 12:08 | DIAGNOSTIC IMAGING REPORT ---
Study: Stress test. HISTORY: Dyspnea. COPD. FINDINGS: Fluoroscopic evaluation of the diaphragms during respiration show somewhat diminished movement of the right hemidiaphragm. There is no. Occipital motion. The thyroid hemidiaphragm moves normally. IMPRESSION: 1. Mildly diminished motion of the right hemidiaphragm although movement appears to be appropriate in terms of direction. 2. There is no evidence for right diaphragm paralysis. 3. normal motion of the left hemidiaphragm. Electronically signed by: Jett Lofton M.D. 10/08/2017 12:06 PM Dictated Date/Time: 10/08/2017 12:04 PM
--- NOTE | 2017-10-08 13:11 | DIAGNOSTIC IMAGING REPORT ---
CT OF THE CHEST WITH IV CONTRAST CLINICAL HISTORY: Shortness of breath. Chronic obstructive pulmonary disease. COMPARISON STUDY: Chest CT July 10, 2017 and chest radiograph September 23, 2017. TECHNIQUE: Following IV administration of 94 mL of Optiray-320, helical axial images of the chest were obtained. Sagittal and coronal reconstructions were viewed as well as maximal intensity projections on an independent 3-D workstation. A dose lowering technique was utilized adhering to the principles of ALARA. CT DOSE: 319.08 mGycm FINDINGS: No enlarged axillary, spinal or hilar lymph nodes are present. The size of the heart is at the upper limits of normal. There is no pericardial effusion. No pneumothorax is present. There is a trace left pleural fusion. Subpleural left lower lobe opacity is similar to previous exam. This favors atelectasis. There is no consolidation to suggest pneumonia. A few mild scattered tree-in-bud nodules are present. Central airways are patent. No suspicious osseous lesions are present. A celiac axis stent appears patent. The patient is status post splenectomy and distal pancreatectomy. Visualized portions of the operative bed are similar in appearance to previous exam. IMPRESSION: 1. Trace left pleural effusion, decreased in size since exam of July 10, 2017. Persistent subpleural left lower lobe opacity which suggests atelectasis. 2. A few scattered minimal tree-in-bud nodules within the lungs. No consolidation to suggest pneumonia. 3. Mild upper lobe predominant emphysema. 4. Stable postoperative findings within visualized portions of the upper abdomen status post splenectomy and distal pancreatectomy. Electronically signed by: Anibal Law M.D. 10/08/2017 1:09 PM Dictated Date/Time: 10/08/2017 1:00 PM
== END | disposition home or self-care (01) ==
LOC: C.RAD 11:44
PROVIDERS: ATTEND Internal Medicine Pulmonary Disease
DX: J44.9 Chronic obstructive pulmonary disease, unspecified (principal); R06.02 Shortness of breath

== ENCOUNTER 2019-05-07 09:34 | Inpatient (IN) ==
[2019-05-07] MEDS ORDERED: ALBUT/IPRATROP 3MG/0.5MG NEB 3 ML VIAL NEB STA (09:44)
--- NOTE | 2019-05-07 10:13 | XRay Report ---
SINGLE VIEW CHEST CLINICAL HISTORY: Sepsis. FINDINGS: An AP, portable, upright chest radiograph is compared to study dated 05/06/2019. Correlatio n is made with chest CT dated 03/13/2018. The examination is degraded by portable technique and patien t rotation. Electronic device partially obscures the left mid chest with leads extending into the nec k. The heart is enlarged noting atherosclerotic calcification of the thoracic aorta. The pulmonary va sculature is noncongested. Emphysema and chronic interstitial thickening are similar to previous. The re is chronic elevation of the right hemidiaphragm and bibasilar atelectasis. There is no airspace co nsolidation or large pleural effusion. Scarring/atelectasis is noted at the lung bases. No pneumothor ax is seen. The skeletal structures are osteopenic. The bony thorax is grossly intact. Cholecystectom y clips are seen in the right upper quadrant. IMPRESSION: Cardiomegaly and emphysema with no acute cardiopulmonary abnormality. Electronically signed by: Brandon Hurd M.D. 05/07/2019 10:12 AM
[2019-05-07 10:26] LABS: Basophils # (auto) 0.02 K/uL (0-0.2); Basophils % (auto) 0.2 %; Eosinophils # (auto) 0.29 K/uL (0-0.5); Eosinophils % (auto) 3.5 %; Hematocrit (blood only) 37.3 % (42-52); Hemoglobin 12.8 g/dL (14.0-18.0); Immature Granulocytes # (auto) 0.03 K/uL (0.00-0.02); Immature Granulocytes % (auto) 0.4 %; Lymphocytes # (auto) 1.43 K/uL (1.2-3.4); Lymphocytes % (auto) 17.1 %; Mean Corpuscular Hemoglobin 41.8 pg (25-34); Mean Corpuscular Hgb Conc 34.3 g/dL (32-36); Mean Corpuscular Volume 121.9 fL (80-100); Mean Platelet Volume 9.7 fL (7.4-10.4); Monocytes # (auto) 1.29 K/uL (0.11-0.59); Monocytes % (auto) 15.4 %; Neutrophils # (auto) 5.31 K/uL (1.4-6.5); Neutrophils % (auto) 63.4 %; Nucleated RBC # (auto) 0.03 K/uL (0-0); Nucleated RBC % (auto) 0.4 %; Platelet Count 206 K/uL (130-400); RDW Coefficient of Variation 16.8 % (11.5-14.5); RDW Standard Deviation 74.8 fL (36.4-46.3); Red Blood Count 3.06 M/uL (4.7-6.1); White Blood Count 8.37 K/uL (4.8-10.8)
[2019-05-07 10:41] LABS: INR 1.1 (0.9-1.1); Partial Thromboplastin Ratio 1.2; Partial Thromboplastin Time 31.6 Seconds (21.0-31.0)
[2019-05-07 10:46] LABS: Alanine Aminotransferase 7 U/L (12-78); Albumin Level 3.2 gm/dl (3.4-5.0); Aspartate Aminotransferase 21 U/L (15-37); BUN Creatinine Ratio 23.2 (10-20); Blood Urea Nitrogen 21 mg/dl (7-18); C Reactive Protein 2.99 mg/dl (0-0.29); Calcium 9.1 mg/dl (8.5-10.1); Carbon Dioxide 32 mmol/L (21-32); Chloride 107 mmol/L (98-107); Creatinine Clr Calc Pharmacy 82.8 ml/min; Est GFR (African American) 100.7; Est GFR (Non-African American) 86.9; Glucose 86 mg/dl (70-99); Magnesium 1.9 mg/dl (1.8-2.4); Potassium 3.9 mmol/L (3.5-5.1); Sodium 141 mmol/L (136-145)
[2019-05-07 10:50] LABS: Base Excess VBG 4.2 mEq/L; HCO3 VBG 32 mmol/L; PCO2 VBG 61 mmHg (38-50); PO2 VBG 32 mmHg; pH VBG 7.33 (7.36-7.41)
[2019-05-07 10:50] LABS: Anisocytosis Present; Howell-Jolly Bodies 1+; Macrocytosis Present; Target Cells 1+
[2019-05-07 10:51] LABS: Albumin Globulin Ratio 0.7 (0.9-2); Alkaline Phosphatase 148 U/L (45-117); Bilirubin,Total 0.5 mg/dl (0.2-1); Globulin 4.5 gm/dl (2.5-4.0); Total Protein 7.7 gm/dl (6.4-8.2); Troponin I < 0.015 ng/ml (0-0.045)
[2019-05-07 10:53] LABS: Oxygen Saturation VBG < 60.0 %
--- NOTE | 2019-05-07 12:18 | History & Physical Report ---
Date of Service May 07, 2019 Assessment & Plan (1) Respiratory failure: Acute and chronic. Hypercarbic. Consider pulmonary consultation Present on Admission?: Yes (2) COPD exacerbation: DuoNeb breathing treatment per protocol. (3) Breath shortness: Secondary to advanced COPD. (4) Hypoxia: Nasal cannula oxygen to titrate pulse ox to be more than 92% (5) Aspiration into airway: Consult speech therapy for swallowing evaluation Present on Admission?: Yes (6) Essential tremor: Continue propranolol Present on Admission?: Yes (7) Chronic obstructive pulmonary disease: May need pulmonary consultation. (8) BPH with obstruction/lower urinary tract symptoms: Continue Flomax and finasteride. (9) Hypoxia: NC oxygen (10) Parkinsonism: Resume home meds. (11) Former smoker: (12) Dysphagia: Speech therapy consult (13) Choking due to food (regurgitated): Await recommendations from speech therapy ; GI consulted. (14) Peptic ulcer disease: Continue PPI (15) S/P splenectomy: (16) DVT prophylaxis: Subcu heparin. History of Present Illness Chief Complaint: sob and dysphagia Primary Care Provider: Chino Abdul The patient is 68-year-old male with history of Parkinson disease and dysphagia and COPD. He presented to the ER today with a complaints of increasing shortness of breath for last 1 week. He saw his family physician yesterday and was started on oral antibiotics but his dyspnea has been persisting. He complains of choking after eating food. He recently had a barium swallow done on 29 January which showed esophageal dysmotility. On arrival to the ER he was tachypneic and blood gas show hypercarbia. He will be admitted for further evaluation and management. He follows up by public relations supervisor from [place]. He also sees movement disorder specialist at [place] for Parkinson disease. No sputum or hemoptysis. No fever. No chest pain. No vomiting or hematemesis Allergies Allergy/AdvReac Type Severity Reaction Status Date / Time No Known Allergies Allergy Verified 05/07/19 11:03 Home Medications Home Medications Medication Instructions Recorded Confirmed Type albuterol sulfate 2 puff INHALATION Q4H PRN 04/07/18 05/07/19 History carbidopa-levodopa 2 tabs PO QID 04/07/18 05/07/19 History clonazepam 1 mg PO HS 04/07/18 05/07/19 History escitalopram oxalate 1.5 tab PO QAM 04/07/18 05/07/19 History fluticasone propion-salmeterol 1 puff INHALATION BID 04/07/18 05/07/19 History hydroxyurea 2 cap PO QAM 04/07/18 05/07/19 History omeprazole 1 cap PO QAM 04/07/18 05/07/19 History ondansetron 4 mg PO BID PRN 04/07/18 05/07/19 History propranolol 1 cap PO QAM 04/07/18 05/07/19 History tamsulosin [Flomax] 0.4 mg PO QPM 01/27/19 05/07/19 History ipratropium bromide 0.03 % nasal 2 sprays INTNAS TID #30 ml 02/24/19 05/07/19 Rx spray finasteride 5 mg tablet 5 mg PO QPM 90 Days #90 tab 03/04/19 05/07/19 Rx Past Med/Surg History Medical History COPD (chronic obstructive pulmonary disease) Depression Dysphagia chronic hx of dysphagia x 1 year felt 2/2 parkinson's. Hx aspiration PNA (no current acute pulmonary complaints; "at baseline" at PAT visit 02/03/19). Moderate esophageal dysmotility with no aspiration per barium swallow 01/2019. 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 History of diverticulitis History of GI bleed duodenal ulcer (2017)- on PPI History of pancreatitis chronic Hypertension Nocturnal hypoxia on 2L HS Parkinsons DX'D 3 YRS AGO-F/U [facility] [place]-dysphagia, fatigue, balance issues, voice modulation issue, tremor in hands. 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 OR/surgeon made aware Family History Grandfather Family history of colon cancer Social History (Updated 05/07/19 @ 12:39 by Jose Luis Mendieta MD) Preferred Language: Cuban Communication Ability: Impaired Operations Support Manager Required: No Beliefs That Will Affect Care: None Current Living Situation: Spouse Feels Safe at Home: Yes Smoking Status: Former smoker Second Hand Exposure: No ; Hx Alcohol Use: No Hx Substance Use: No Review of Systems Review of Systems: All systems reviewed & are unremarkable except as noted in HPI & below Respiratory: + cough, + chest congestion and + dyspnea Gastrointestinal: + dysphagia Neurologic: + tremor(s) Physical Exam Physical Exam: GENERAL : No acute distress EYES: No icterus, gaze conjugate NOSE: No evidence of epistaxis MOUTH: No lesions or candidiasis, mucosa moist NECK: Supple LUNGS: Few rhonchi present bilaterally HEART: Regular, rate controlled ABDOMEN: Soft, NT, ND, BS Present EXTREMITIES: No LE edema, pedal pulses intact NEURO: A&OX3 Results & Data Vital Signs (Past 12 Hours) Vital Signs Temp Pulse Pulse Resp BP BP Pulse Ox 05/07/19 10:49 46 L 26 H 109/50 L 94 05/07/19 10:09 49 L 20 94 05/07/19 09:54 98.1 F 49 L 38 H 112/64 93 Laboratory Results 05/07/19 10:13 05/07/19 10:13 Diagnostic Findings SINGLE VIEW CHEST CLINICAL HISTORY: Sepsis. FINDINGS: An AP, portable, upright chest radiograph is compared to study dated 05/06/2019. Correlation is made with chest CT dated 03/13/2018. The examination is degraded by portable technique and patient rotation. Electronic device partially obscures the left mid chest with leads extending into the neck. The heart is enlarged noting atherosclerotic calcification of the thoracic aorta. The pulmonary vasculature is noncongested. Emphysema and chronic interstitial thickening are similar to previous. There is chronic elevation of the right hemidiaphragm and bibasilar atelectasis. There is no airspace consolidation or large pleural effusion. Scarring/atelectasis is noted at the lung bases. No pneumothorax is seen. The skeletal structures are osteopenic. The bony thorax is grossly intact. Cholecystectomy clips are seen in the right upper quadrant. IMPRESSION: Cardiomegaly and emphysema with no acute cardiopulmonary abnormality. Code Status & VTE Plan Code Status Full code VTE Prophylaxis Plan VTE Prophylaxis will be ordered: Yes PG Care Time/CCT Total # of Minutes Spent Total Time Spent with Patient: Total time spent is greater than 50% in coordination of care (as documented) at patient's floor/unit and/or counseling patient: (1) Aspiration into airway Encounter type: initial encounter Qualified Code(s): T17.908A - Unspecified foreign body in respiratory tract, part unspecified causing other injury, initial encounter
[2019-05-07] MEDS ORDERED: ACETAMINOPHEN 325 MG TAB PO PRN (13:40)
[2019-05-07] MEDS ORDERED: ONDANSETRON INJ 2 MG/ML 2 ML VIAL IV PRN (13:40)
[2019-05-07] MEDS ORDERED: ONDANSETRON 4 MG OD TAB PO PRN (13:58)
[2019-05-07] MEDS: CARBIDOPA/LEVODOPA 25/100MG TAB PO SCH ×3 (14:41→21:56)
[2019-05-07] MEDS: HEPARIN SOD 5,000 UNIT/0.5 ML VIAL SQ SCH ×2 (14:41→21:57)
--- NOTE | 2019-05-07 16:10 | Gastrointestinal Consultation ---
Date of Consultation May 07, 2019 Assessment & Plan (1) Dysphagia: His history and the Videofluoro swallow study is consistent with oropharyngeal dysphagia which is the main issue. Esophageal dysmotility unfortunately cannot do anything about. At some point EGD is reasonable for completeness but do not expect it will change managment much is any. In any event, his pulmonary status needs to be optimal prior to consideration of any EGD. Await speech path review of [facility] report (told her I would include it in my note) and their evaluation of the patient. History of Present Illness Reason for Consultation: dysphagia Requesting Physician: DR Jose Luis Mendieta Attending Physician: Jose Luis Mendieta MD History of Present Illness CC dysphagia HPI and son in room for H and P. Pt with history of bledding DU noted on EGD 05/2017. He has parkinsos and has developed dysphagia. He coughs and chokes while eating and drinking. Once foods gets into esophagus he says it passes fine into the stomach. Barium swallow done 01/29/19 showed esophageal dysmotility and barium pill lodged in distal esophagus. Pt admited for respiratory distress. Speech path VFS interpretation from [facility] 03/19/19 Subjective Subjective Statement: Reyes attends today's appointment with his . He reports he avoids dry foods and fruit.. Pain Assessment: Pain Score: 0. Observations Behavior: WFL. Attention: WFL. Direction Following: WFL. Respiratory Status: Room air. Voice: Perceptual Evaluation: Loudness ( Too Soft ), Quality ( Breathy ), Pitch ( Monotone ). Oral Motor: WFL: At Rest, When Eating, For Speech. Positioning: Lateral. Consistencies Presented: Thin liquid, Puree, Diced, Cracker, pretzel . Oral Phase WFL Lip Closure: WFL. Tongue Control during Bolus Hold: WFL. Bolus Preparation/Mastication: WFL. Bolus Transpoort/Lingual Motion: WFL. Pharyngeal Phase Initiation of Pharyngeal Swallow: Triggered at level of valleculla. Soft Palate Evaluation: WFL. Tongue base Retraction: Diminished. Laryngeal Excursion: WFL. Hyoid/Thyroid Approximation: WFL. Epiglottic Movement: Delayed inversion. Pharyngeal Contraction: No residue on pharyngeal wall. Pharyngeal Residue: In vallecula (minimal). Esophageal Phase Other: known history of moderate esophageal dysmotility. Penetration/Aspiration Scale All consistencies : 1. Material does not enter airway. Assessment Therapy Indicated: Yes. Impressions: Patient with functional oropharyngeal swallow. Slight delay in swallow response time, mild base of tongue weakness, but able to decrease retention by using slow rate and upright position. Patient with decreased vocal volume and weak cough response. . Patient Education Topics: Signs/symptoms of aspiration, Safe swallow strategies. Person Taught: Patient. Method of Teaching: Verbal Instruction. Response to Education: Verbalizes understanding. Recommendations Diet Recommendations: 1. Continue regular diet/thin liquids 2. Must be in fully upright position during and for 30 minutes post meal. 3. Slow rate of intake 4. Consider LSVT LOUD and use of EMST to improve cough strength. Therapy Service Codes Charges from [employer]: Evaluation Charges 06328 Evaluation Modified Barium Swallow - Yes. Time Spent with Patient: Total Time with Patient: 30 min. Evaluation: Modified Barium Swallow Evaluation. Signature Line Electronic Signature on File Electronically Reviewed/Signed by: Haley Ndiaye Author Signature Dt/Tm:03/24/2019 01:33 PM Radiologist interpretation of VFS 03/19/19 XR Swallowing Function w/ Speech EXAMINATION: REHAB SWALLOW CLINICAL HISTORY: G20: Parkinson's disease; R13.10: Dysphagia, unspecified; 68 year old with concern for aspiration/dysphagia COMPARISON: None TECHNIQUE: The study was performed in conjunction with the speech pathologist. The patient was evaluated thin barium (1), pudding (3), cracker (4), diced fruit (5), pretzel (8). The patient was evaluated while seated utilizing dynamic fluoroscopy. The patient's ability to cooperate was adequate. FLUOROSCOPY TIME: 1.17 FINDINGS: Swallowing reflex: The swallowing reflex is normal. Pooling: There is no appreciable pooling. Cervical esophagus: There is delayed transfer from oral phase to cervical esophagus, with slow pooling in the vallecula for bolus transfer, with pudding, cracker, diced fruit and pretzel. Cricopharyngeal impression: There is normal synchronous contraction of the pharyngeal constrictor muscles. Thin barium (1): Penetration without aspiration with large sips. Smaller sips showed no penetration. Pudding (3): No penetration or aspiration. Cracker (4): No penetration or aspiration. Diced fruit (5): No penetration or aspiration. Pretzel (8): No penetration or aspiration. IMPRESSION: 1. Delayed transfer with slow pooling in the vallecula before bolus transfer with pudding, cracker, diced fruit, and pretzel. 2. Penetration without aspiration with large sips of thin barium. Penetration resolved with smaller sips. NOTE: Please see the associated note from Speech Pathology. Dr. Jon Daniel is the dictating resident. Finalized reports status indicates that the attending has reviewed the images and report, and agrees with the interpretation. Preliminary report status should be regarded as NOT interpreted by the attending radiologist. Supervision Statement:I was physically present in the room and supervised the performance of the procedure. Signature Line Final Dictated by:MD Daniel Joseph H Dictated DT/TM:03/19/2019 2:49 Resident:MD Daniel Joseph H Signed by:MD Guerra Christine M Signed (Electronic Signature):03/19/2019 2:48 p IMAGE This document has an image Result Type: XR Swallowing Function w/ Speech Allergies Allergy/AdvReac Type Severity Reaction Status Date / Time No Known Allergies Allergy Verified 05/07/19 11:03 Home Medications Home Medications Medication Instructions Recorded Confirmed Type albuterol sulfate 2 puff INHALATION Q4H PRN 04/07/18 05/07/19 History carbidopa-levodopa 2 tabs PO QID 04/07/18 05/07/19 History clonazepam 1 mg PO HS 04/07/18 05/07/19 History escitalopram oxalate 1.5 tab PO QAM 04/07/18 05/07/19 History fluticasone propion-salmeterol 1 puff INHALATION BID 04/07/18 05/07/19 History hydroxyurea 2 cap PO QAM 04/07/18 05/07/19 History omeprazole 1 cap PO QAM 04/07/18 05/07/19 History ondansetron 4 mg PO BID PRN 04/07/18 05/07/19 History propranolol 1 cap PO QAM 04/07/18 05/07/19 History tamsulosin [Flomax] 0.4 mg PO QPM 01/27/19 05/07/19 History ipratropium bromide 0.03 % nasal 2 sprays INTNAS TID #30 ml 02/24/19 05/07/19 Rx spray finasteride 5 mg tablet 5 mg PO QPM 90 Days #90 tab 03/04/19 05/07/19 Rx Patient History Medical History (Updated 05/07/19 @ 12:53 by Jose Luis Mendieta MD) Choking due to food (regurgitated) COPD (chronic obstructive pulmonary disease) Depression Dysphagia chronic hx of dysphagia x 1 year felt 2/2 parkinson's. Hx aspiration PNA (no current acute pulmonary complaints; "at baseline" at PAT visit 02/03/19). Moderate esophageal dysmotility with no aspiration per barium swallow 01/2019. 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 OR/surgeon made aware Family History Grandfather Family history of colon cancer Social History (Updated 05/07/19 @ 12:39 by Jose Luis Mendieta MD) Preferred Language: Setswana Communication Ability: Effective [employer] Sales Representative Required: No Beliefs That Will Affect Care: None marital status: Current Living Situation: Spouse Other Information That Helps Us Care for You: No Feels Safe at Home: Yes Safety Concerns: Feels Safe At This Time Smoking Status: Former smoker Do You Dip or Chew Tobacco: No ; Smoking End Date: 2012 ; Second Hand Exposure: No ; Tobacco Cessation Education Requested by Patient: No Hx Alcohol Use: No Hx Substance Use: No Review of Systems Review of Systems: All systems reviewed & are unremarkable except as noted in HPI & below Physical Exam Constitutional: WD/WN, vitals as above Eyes: PERRL, conjunctivae normal, anicteric sclerae ENMT: external ear and nose normal, oropharynx normal Neck: trachea midline Respiratory: decreased breath sounds Cardiovascular: RRR, no murmur, no edema Gastrointestinal (Abdomen): normal bowel sounds, soft, nontender, no hepatosplenomegaly Neurologic: PERRL, EOMI, accommodation nl, no face palsy, no dysarthria Psychiatric: A+Ox3, euthymic affect Results & Data Vital Signs (Past 12 Hours) Vital Signs Temp Pulse Pulse Resp BP BP Pulse Ox 05/07/19 14:51 49 L 05/07/19 14:02 53 L 05/07/19 13:58 36.5 C 98 H 22 111/70 92 05/07/19 13:20 48 L 30 H 130/74 94 05/07/19 12:46 47 L 26 H 122/70 92 05/07/19 10:49 46 L 26 H 109/50 L 94 05/07/19 10:09 49 L 20 94 05/07/19 09:54 36.7 C 49 L 38 H 112/64 93
--- NOTE | 2019-05-07 16:29 | Emergency Department Note ---
Entered by Selene Oneill acting as a scribe for Wellington Guerrero DO History of Present Illness General Chief complaint: Shortness of Breath/Dyspnea Time Seen by Provider: 05/07/19 09:39 Source: patient History of Present Illness Provider complaint: breathing difficulties Onset (ago): day(s) 1 Location: mouth and chest Radiation: non-radiation Pain Consistency: + intermittent Maximum Pain Intensity: 7 Quality: + other (chocking) Exacerbated By: + other (mucs production ) Associated symptoms: + denies other symptoms The patient is a 68 y/o male who presents to the emergency department for evaluation of intermittent trouble breathing that began yesterday. The patient states that he has Parkinsons and COPD which make it difficult to swallow and results in him choking on his spit. He states that it has been worse recently due to increased mucous production that has been causing him to chock and cough more. His states that they went to his PCP yesterday and had a chest X-ray done, started on doxycycline, and was instructed to follow up I the ED if he did not feel better. The patient notes he wears oxygen at home at night and that he has been having leg swelling. The patient denies fever, nausea, and any other symptoms. Home Medications Home Medications Medication Instructions Recorded Confirmed Type albuterol sulfate 2 puff INHALATION Q4H PRN 04/07/18 05/07/19 History carbidopa-levodopa 2 tabs PO QID 04/07/18 05/07/19 History clonazepam 1 mg PO HS 04/07/18 05/07/19 History escitalopram oxalate 1.5 tab PO QAM 04/07/18 05/07/19 History fluticasone propion-salmeterol 1 puff INHALATION BID 04/07/18 05/07/19 History hydroxyurea 2 cap PO QAM 04/07/18 05/07/19 History omeprazole 1 cap PO QAM 04/07/18 05/07/19 History ondansetron 4 mg PO BID PRN 04/07/18 05/07/19 History propranolol 1 cap PO QAM 04/07/18 05/07/19 History tamsulosin [Flomax] 0.4 mg PO QPM 01/27/19 05/07/19 History ipratropium bromide 0.03 % nasal 2 sprays INTNAS TID #30 ml 02/24/19 05/07/19 Rx spray finasteride 5 mg tablet 5 mg PO QPM 90 Days #90 tab 03/04/19 05/07/19 Rx Allergies Allergy/AdvReac Type Severity Reaction Status Date / Time No Known Allergies Allergy Verified 05/07/19 11:03 Past Med/Surg History Medical History (Updated 05/07/19 @ 12:53 by Jose Luis Mendieta MD) Choking due to food (regurgitated) COPD (chronic obstructive pulmonary disease) Depression Dysphagia chronic hx of dysphagia x 1 year felt 2/2 parkinson's. Hx aspiration PNA (no current acute pulmonary complaints; "at baseline" at PAT visit 02/03/19). Mo derate esophageal dysmotility with no aspiration per barium swallow 01/2019. 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 OR/surgeon made aware Family History Grandfather Family history of colon cancer Social History (Updated 05/07/19 @ 12:39 by Jose Luis Mendieta MD) Preferred Language: Kyrgyz Communication Ability: Effective Signal Tower Operator Required: No Beliefs That Will Affect Care: None marital status: Current Living Situation: Spouse Other Information That Helps Us Care for You: No Feels Safe at Home: Yes Safety Concerns: Feels Safe At This Time Smoking Status: Former smoker Do You Dip or Chew Tobacco: No ; Smoking End Date: 2012 ; Second Hand Exposure: No ; Tobacco Cessation Education Requested by Patient: No Hx Alcohol Use: No Hx Substance Use: No Review of Systems See HPI for pertinent positives & negatives. and A total of 10 systems reviewed and were otherwise negative Physical Exam Vital Signs Vital Signs - 24 hr 05/07/19 09:54 05/07/19 10:09 05/07/19 10:49 Temperature 36.7 C Temperature Source Oral Pulse Rate 49 L Pulse Rate [Apical] 49 L 46 L Respiratory Rate 38 H 20 26 H Respiratory Effort / Characteristics Spontaneous Non-Labored Spontaneous Spontaneous Blood Pressure 112/64 Blood Pressure [Right Arm] 109/50 L Blood Pressure Mean 80 Blood Pressure Mean [Right Arm] 69 Blood Pressure Position Lying Blood Pressure Position [Right Arm] Lying Pulse Oximetry 93 94 94 Oxygen Delivery Method Nasal Cannula Nasal Cannula Nasal Cannula Oxygen Flow Rate 3 3 3 Sepsis Recent Fever Within 48 Hours No Sepsis New/Unexplained Change in Mental Status No Sepsis Action Taken by Nursing No Action Required GENERAL: Patient is awake, alert, and in no acute distress.Patient is resting comfortably and showing mild signs of anxiety EYES: The conjunctivae are clear. The pupils are round and reactive. EARS, NOSE, MOUTH AND THROAT: The nose is without any evidence of any deformity. Mucous membranes are moist.Tongue is midline NECK: The neck is nontender and supple. Secretions pooling in oropharynx. RESPIRATORY: Diminished lung sounds throughout, rales in all lung field, shallows respiration noted. CARDIOVASCULAR: Regular rate and rhythm noted. There no murmurs rubs or gallops normal S1 normal S2 GASTROINTESTINAL: The abdomen is soft. Bowel sounds are present in all quadrants. Abdomen is nontender. MUSCULOSKELETAL/EXTREMITIES: There is no evidence of gross deformity. Full range of motion is noted in the hips and shoulders. SKIN: There is no obvious evidence of any rash. There are no petechiae, pallor or cyanosis noted. Pedal edema bilaterally and skin is warm and dry to touch. NEUROLOGIC: Patient is awake alert and oriented x3. Strength is symmetric. Patellar reflexes are 2+ bilaterally. Course Course 0941: Past medical records reviewed. The patient was evaluated in room B11. A complete history and physical exam was performed. 1206: I spoke with Dr. Genet BASS who will evaluate for further management. 1209: I updated the patient on his results and the treatment plan Administered Medications Carbidopa/Levodopa (Sinemet 25/100 Mg) 2 tab PO QID CHAPARRITA Stop: 06/06/19 13:59 Last Admin: 05/07/19 14:41 Dose: 2 tab Documented by: [id number] Heparin Sodium (Porcine) (Heparin Sodium (Porcine)) 5,000 units SQ Q8 CHAPARRITA Stop: 06/06/19 13:59 Last Admin: 05/07/19 14:41 Dose: 5,000 units Documented by: [id number] Cosigned by: [id number] Discontinued Medications Albuterol (Duoneb) 3 ml NEB NOW STA Stop: 05/07/19 09:45 Last Admin: 05/07/19 10:09 Dose: 3 ml Documented by: [id number] Medical Decision Making Differential Diagnosis Differential diagnosis: Etiologies such as infections, reactive airway disease, COPD, pneumonia, pleural effusion, pulmonary edema, ARDS, pneumothorax, CHF, cardiac ischemia, cardiac tamponade, dysrhythmia, anemia, pulmonary embolism, musculoskeletal, gastrointestinal process, as well as others were entertained. Medical Records Attestation: I reviewed the patient's medical records. Home Medications Current Medication List: was personally reviewed by me Laboratory Data Attestation: I reviewed the patient's lab results. Result diagrams: 05/07/19 10:13 05/07/19 10:13 Lab Results 05/07/19 05/07/19 05/07/19 Range/Units 10:13 10:13 10:13 WBC 8.37 (4.8-10.8) K/uL RBC 3.06 L (4.7-6.1) M/uL Hgb 12.8 L (14.0-18.0) g/dL Hct 37.3 L (42-52) % MCV 121.9 H (80-100) fL MCH 41.8 H (25-34) pg MCHC 34.3 (32-36) g/dL RDW Std Deviation 74.8 H (36.4-46.3) fL RDW Coeff of Yi 16.8 H (11.5-14.5) % Plt Count 206 (130-400) K/uL MPV 9.7 (7.4-10.4) fL Immature Gran % (Auto) 0.4 % Neut % (Auto) 63.4 % Lymph % (Auto) 17.1 % Hubbard % (Auto) 15.4 % Eos % (Auto) 3.5 % Baso % (Auto) 0.2 % Immature Gran # (Auto) 0.03 H (0.00-0.02) K/uL Neut # (Auto) 5.31 (1.4-6.5) K/uL Lymph # (Auto) 1.43 (1.2-3.4) K/uL Hubbard # (Auto) 1.29 H (0.11-0.59) K/uL Eos # (Auto) 0.29 (0-0.5) K/uL Baso # (Auto) 0.02 (0-0.2) K/uL Absolute Nucleated RBC 0.03 H (0-0) K/uL Nucleated RBC % (auto) 0.4 % Anisocytosis Present Macrocytosis Present Target Cells 1+ Calvo-Nocona Bodies 1+ ESR 76 H (0-14) mm/hr PT 11.0 (9.0-12.0) Seconds INR 1.1 (0.9-1.1) APTT 31.6 H (21.0-31.0) Seconds PTT Ratio 1.2 VBG pH (7.36-7.41) VBG pCO2 (38-50) mmHg VBG pO2 mmHg VBG HCO3 mmol/L VBG O2 Saturation % VBG Base Excess mEq/L Barometric Pressure mm/Hg Sodium (136-145) mmol/L Potassium (3.5-5.1) mmol/L Chloride (98-107) mmol/L Carbon Dioxide (21-32) mmol/L Anion Gap (3-11) BUN (7-18) mg/dl Creatinine (0.6-1.4) mg/dl Est Cr Clr Drug Dosing ml/min Est GFR ( Amer) Est GFR (Non-Af Amer) BUN/Creatinine Ratio (10-20) Glucose (70-99) mg/dl Lactate (0.4-2.0) mmol/L Calcium (8.5-10.1) mg/dl Magnesium (1.8-2.4) mg/dl Total Bilirubin (0.2-1) mg/dl AST (15-37) U/L ALT (12-78) U/L Alkaline Phosphatase (45-117) U/L Troponin I (0-0.045) ng/ml C-Reactive Protein (0-0.29) mg/dl Total Protein (6.4-8.2) gm/dl Albumin (3.4-5.0) gm/dl Globulin (2.5-4.0) gm/dl Albumin/Globulin Ratio (0.9-2) Procalcitonin (0-0.5) ng/ml 05/07/19 05/07/19 05/07/19 Range/Units 10:13 10:13 10:13 WBC (4.8-10.8) K/uL RBC (4.7-6.1) M/uL Hgb (14.0-18.0) g/dL Hct (42-52) % MCV (80-100) fL MCH (25-34) pg MCHC (32-36) g/dL RDW Std Deviation (36.4-46.3) fL RDW Coeff of Yi (11.5-14.5) % Plt Count (130-400) K/uL MPV (7.4-10.4) fL Immature Gran % (Auto) % Neut % (Auto) % Lymph % (Auto) % Hubbard % (Auto) % Eos % (Auto) % Baso % (Auto) % Immature Gran # (Auto) (0.00-0.02) K/uL Neut # (Auto) (1.4-6.5) K/uL Lymph # (Auto) (1.2-3.4) K/uL Hubbard # (Auto) (0.11-0.59) K/uL Eos # (Auto) (0-0.5) K/uL Baso # (Auto) (0-0.2) K/uL Absolute Nucleated RBC (0-0) K/uL Nucleated RBC % (auto) % Anisocytosis Macrocytosis Target Cells Calvo-Nocona Bodies ESR (0-14) mm/hr PT (9.0-12.0) Seconds INR (0.9-1.1) APTT (21.0-31.0) Seconds PTT Ratio VBG pH (7.36-7.41) VBG pCO2 (38-50) mmHg VBG pO2 mmHg VBG HCO3 mmol/L VBG O2 Saturation % VBG Base Excess mEq/L Barometric Pressure mm/Hg Sodium 141 (136-145) mmol/L Potassium 3.9 (3.5-5.1) mmol/L Chloride 107 (98-107) mmol/L Carbon Dioxide 32 (21-32) mmol/L Anion Gap 2.0 L (3-11) BUN 21 H (7-18) mg/dl Creatinine 0.91 (0.6-1.4) mg/dl Est Cr Clr Drug Dosing 82.8 ml/min Est GFR ( Amer) 100.7 Est GFR (Non-Af Amer) 86.9 BUN/Creatinine Ratio 23.2 H (10-20) Glucose 86 (70-99) mg/dl Lactate 1.0 (0.4-2.0) mmol/L Calcium 9.1 (8.5-10.1) mg/dl Magnesium 1.9 (1.8-2.4) mg/dl Total Bilirubin 0.5 (0.2-1) mg/dl AST 21 (15-37) U/L ALT 7 L (12-78) U/L Alkaline Phosphatase 148 H (45-117) U/L Troponin I < 0.015 (0-0.045) ng/ml C-Reactive Protein 2.99 H (0-0.29) mg/dl Total Protein 7.7 (6.4-8.2) gm/dl Albumin 3.2 L (3.4-5.0) gm/dl Globulin 4.5 H (2.5-4.0) gm/dl Albumin/Globulin Ratio 0.7 L (0.9-2) Procalcitonin < 0.05 (0-0.5) ng/ml 05/07/19 Range/Units 10:26 WBC (4.8-10.8) K/uL RBC (4.7-6.1) M/uL Hgb (14.0-18.0) g/dL Hct (42-52) % MCV (80-100) fL MCH (25-34) pg MCHC (32-36) g/dL RDW Std Deviation (36.4-46.3) fL RDW Coeff of Yi (11.5-14.5) % Plt Count (130-400) K/uL MPV (7.4-10.4) fL Immature Gran % (Auto) % Neut % (Auto) % Lymph % (Auto) % Hubbard % (Auto) % Eos % (Auto) % Baso % (Auto) % Immature Gran # (Auto) (0.00-0.02) K/uL Neut # (Auto) (1.4-6.5) K/uL Lymph # (Auto) (1.2-3.4) K/uL Hubbard # (Auto) (0.11-0.59) K/uL Eos # (Auto) (0-0.5) K/uL Baso # (Auto) (0-0.2) K/uL Absolute Nucleated RBC (0-0) K/uL Nucleated RBC % (auto) % Anisocytosis Macrocytosis Target Cells Calvo-Nocona Bodies ESR (0-14) mm/hr PT (9.0-12.0) Seconds INR (0.9-1.1) APTT (21.0-31.0) Seconds PTT Ratio VBG pH 7.33 L (7.36-7.41) VBG pCO2 61 H (38-50) mmHg VBG pO2 32 mmHg VBG HCO3 32 mmol/L VBG O2 Saturation < 60.0 % VBG Base Excess 4.2 mEq/L Barometric Pressure 736.9 mm/Hg Sodium (136-145) mmol/L Potassium (3.5-5.1) mmol/L Chloride (98-107) mmol/L Carbon Dioxide (21-32) mmol/L Anion Gap (3-11) BUN (7-18) mg/dl Creatinine (0.6-1.4) mg/dl Est Cr Clr Drug Dosing ml/min Est GFR ( Amer) Est GFR (Non-Af Amer) BUN/Creatinine Ratio (10-20) Glucose (70-99) mg/dl Lactate (0.4-2.0) mmol/L Calcium (8.5-10.1) mg/dl Magnesium (1.8-2.4) mg/dl Total Bilirubin (0.2-1) mg/dl AST (15-37) U/L ALT (12-78) U/L Alkaline Phosphatase (45-117) U/L Troponin I (0-0.045) ng/ml C-Reactive Protein (0-0.29) mg/dl Total Protein (6.4-8.2) gm/dl Albumin (3.4-5.0) gm/dl Globulin (2.5-4.0) gm/dl Albumin/Globulin Ratio (0.9-2) Procalcitonin (0-0.5) ng/ml Imaging Data Radiologist's Impression: Radiology results as stated below per my review and the radiologist's interpretation: SINGLE VIEW CHEST CLINICAL HISTORY: Sepsis. FINDINGS: An AP, portable, upright chest radiograph is compared to study dated 05/06/2019. Correlation is made with chest CT dated 03/13/2018. The examination is degraded by portable technique and patient rotation. Electronic device partially obscures the left mid chest with leads extending into the neck. The heart is enlarged noting atherosclerotic calcification of the thoracic aorta. The pulmonary vasculature is noncongested. Emphysema and chronic interstitial thickening are similar to previous. There is chronic elevation of the right hemidiaphragm and bibasilar atelectasis. There is no airspace consolidation or large pleural effusion. Scarring/atelectasis is noted at the lung bases. No pneumothorax is seen. The skeletal structures are osteopenic. The bony thorax is grossly intact. Cholecystectomy clips are seen in the right upper quadrant. IMPRESSION: Cardiomegaly and emphysema with no acute cardiopulmonary abnormality. Electronically signed by: Brandon Hurd M.D. 05/07/2019 10:12 AM ECG Data Attestation: I personally reviewed and interpreted this ECG as follows: Indication: + SOB/dyspnea Rate (beats per minute): 49 Rhythm: + sinus bradycardia ECG ST segments: no ST depression and no ST elevation ECG Findings: no PACs and no PVCs Comparison ECG Date: from (02/03/19) Change: no significant change Blood Pressure Blood Pressure Findings: Normal blood pressure MDM Narrative The patient is a 68-year-old male who presented to the emergency department for an evaluation of shortness of breath. The patient did not have a fever but had significant sputum production. He was having difficulty clearing his secretions as well. The patient has a history of underlying neuromuscular problems from Parkinson's. He is currently being worked up for chronic aspiration. I discussed the patient's laboratory and radiographic studies with him. He was treated with DuoNeb therapy in the emergency department. He is currently taking an antibiotic that was prescribed by his outpatient physician recently. I discussed his condition with the on-call [facility] hospitalist group. They have agreed to evaluate the patient in the emergency department for further management disposition. No definite signs of infection were noted. He does not appear to have volume overload. He may require further work-up to determine the cause the patient's difficulty breathing although I do suspect these had some degree of aspiration recently. He was given suction to help manage his secretions. This appeared to help the patient greatly. Impression & Plan Breath shortness, Hypoxia, COPD exacerbation, Aspiration into airway Discharge Plan Visit Data *Final* Discharge Date/Time: 05/07/19 13:20 Chief Complaint: Shortness of Breath/Dyspnea ED Provider: Wellington Guerrero Discharge Problem: Breath shortness, Hypoxia, COPD exacerbation, Aspiration into airway Patient Disposition: Admitted As Inpatient Discharge Instructions Interventions: ED Discharge Assessment Last Done: 05/07/19 13:20 Discharge Problem: Aspiration into airway Qualifiers: Encounter type: initial encounter Qualified Code(s): T17.908A - Unspecified foreign body in respiratory tract, part unspecified causing other injury, initial encounter The scribe's documentation has been prepared under my direction and personally reviewed by me in its entirety. I confirm that the note above accurately reflects all work, treatment, procedures, and medical decision making performed by me.
[2019-05-07] MEDS: TAMSULOSIN HCL 0.4 MG CAP PO SCH (21:56)
[2019-05-07] MEDS: FINASTERIDE 5 MG TAB PO SCH (21:56)
[2019-05-07] MEDS: IPRATROPIUM BROMIDE NASAL SPRAY 0.06% 15ML NAE SCH (21:57)
[2019-05-07] MEDS: FLUTICASONE/SALMETEROL 250/50 (ADVAIR) 14 PUFF/1 INHALER INH SCH (21:57)
[2019-05-07] MEDS: clonazePAM 1 MG TAB PO SCH (22:04)
[2019-05-08] MEDS: HEPARIN SOD 5,000 UNIT/0.5 ML VIAL SQ SCH ×3 (05:21→20:54)
[2019-05-08] MEDS: HYDROXYUREA 500 MG CAP PO SCH (07:57)
[2019-05-08] MEDS: FLUTICASONE/SALMETEROL 250/50 (ADVAIR) 14 PUFF/1 INHALER INH SCH (07:57)
[2019-05-08] MEDS: IPRATROPIUM BROMIDE NASAL SPRAY 0.06% 15ML NAE SCH ×3 (07:57→20:54)
[2019-05-08] MEDS: ESCITALOPRAM OXALATE 10 MG TAB PO SCH (07:58)
[2019-05-08] MEDS: CARBIDOPA/LEVODOPA 25/100MG TAB PO SCH ×4 (07:58→20:54)
[2019-05-08] MEDS: PROPRANOLOL HCL 60 MG LA CAP PO SCH (08:32)
[2019-05-08] MEDS: PANTOprazole 40 MG TAB PO SCH (09:18)
--- NOTE | 2019-05-08 09:24 | Pulmonary Consultation ---
Date of Consultation May 08, 2019 Assessment & Plan (1) Acute hypoxemic respiratory failure: Impression: 68-year-old male with reported history of obstructive lung disease although PFTs are not currently available to review. He does have type III respiratory failure with both components of hypoxemia and hypercarbia. He is admitted with increasing chest secretions which may be secondary to aspiration events given his Parkinson's. Recommendations: 1. Chronic hypercarbic respiratory failure: I think the patient may benefit from nocturnal BiPAP. We will place him on 12/6 tonight empirically and see how he feels in the morning. Repeat venous blood gas will be reassessed in the [facility]. This may be appropriate for outpatient therapy and the patient would qualify without a sleep study given hypercarbia. 2. COPD exacerbation: The patient is having difficulty expectorating se cretions. We will add Mucinex and hypertonic saline to his regiment. We will add flutter valve to his regimen as well. Continue inhaled bronchodilators. I do not think he warrants prednisone currently but he Augmentin will be added to his regimen. We will check procalcitonin. May be able to de-escalate to azithromycin depending on data and clinical response. 3. Chronic hypoxemic respiratory failure: Secondary to COPD as well as hypercarbia. Continue oxygen titrated to keep saturations at or above 88%. 4. Chronic aspiration: Continued speech therapy is recommended. This certainly could be contributing to his pulmonary difficulties. (2) Hypercapnic respiratory failure: (3) COPD exacerbation: History of Present Illness Attending Physician: Dany Richards History of Present Illness Asked by hospitalist to evaluate this patient with shortness of breath and hypoxemia. History is obtained from discussion with the patient and his at bedside as well as review the electronic medical record. Patient is a 68-year-old male with a history of Parkinson's disease and recurrent aspiration events who was admitted to the hospital with chest congestion, cough, and progressive shortness of breath. The patient has been working with a speech therapist in the outpatient setting for his aspiration issues. He reports an extensive history of tobacco abuse but quit smoking about 4 years ago. He reports that he has been experiencing significant chest alexys estion and an inability to expectorate phlegm over the last week or so. He has not had fevers or chills. He is maintained on a regiment of Advair and as needed albuterol in the outpatient setting and does state that these are beneficial. He has not noted any chest pain or palpitations. He believes he has had pulmonary function test performed previously but he cannot recall where. He does use oxygen at night. His does endorse snoring and occasional witnessed apneas but apparently the patient has had sleep studies in the past which have not demonstrated significant sleep disordered breathing. He is never been placed on nocturnal positive airway pressure previously. Allergies Allergy/AdvReac Type Severity Reaction Status Date / Time No Known Allergies Allergy Verified 05/07/19 11:03 Home Medications Home Medications Medication Instructions Recorded Confirmed Type albuterol sulfate 2 puff INHALATION Q4H PRN 04/07/18 05/07/19 History carbidopa-levodopa 2 tabs PO QID 04/07/18 05/07/19 History clonazepam 1 mg PO HS 04/07/18 05/07/19 History escitalopram oxalate 1.5 tab PO QAM 04/07/18 05/07/19 History fluticasone propion-salmeterol 1 puff INHALATION BID 04/07/18 05/07/19 History hydroxyurea 2 cap PO QAM 04/07/18 05/07/19 History omeprazole 1 cap PO QAM 04/07/18 05/07/19 History ondansetron 4 mg PO BID PRN 04/07/18 05/07/19 History propranolol 1 cap PO QAM 04/07/18 05/07/19 History tamsulosin [Flomax] 0.4 mg PO QPM 01/27/19 05/07/19 History ipratropium bromide 0.03 % nasal 2 sprays INTNAS TID #30 ml 02/24/19 05/07/19 Rx spray finasteride 5 mg tablet 5 mg PO QPM 90 Days #90 tab 03/04/19 05/07/19 Rx Patient History Medical History (Updated 05/08/19 @ 09:20 by Diomedes Childs MD) Choking due to food (regurgitated) COPD (chronic obstructive pulmonary disease) Depression Dysphagia chronic hx of dysphagia x 1 year felt 2/2 parkinson's. Hx aspiration PNA (no current acute pulmonary complaints; "at baseline" at PAT visit 02/03/19). Moderate esophageal dysmotility with no aspiration per barium swallow 01/2019. Follows with pulmonary- monitoring Dysphagia Essential (hemorrhagic) thrombocythemia controlled on hydroxyurea F/U AT [facility] History of diverticulitis History of GI bleed duodenal ulcer (2018)- on PPI History of pancreatitis chronic Hypertension Nocturnal hypoxia on 2L HS Parkinsons DX'D 3 YRS AGO-F/U [facility] [place]-dysphagia, fatigue, balance issues, voice modulation issue, tremor in hands. 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 OR/surgeon made aware Family History Grandfather Family history of colon cancer Social History (Updated 05/07/19 @ 12:39 by Jose Luis Mendieta MD) Preferred Language: German Communication Ability: Effective Nursing Educator Required: No Beliefs That Will Affect Care: None marital status: Current Living Situation: Spouse Other Information That Helps Us Care for You: No Feels Safe at Home: Yes Safety Concerns: Feels Safe At This Time Smoking Status: Former smoker Do You Dip or Chew Tobacco: No ; Smoking End Da te: 2012 ; Second Hand Exposure: No ; Tobacco Cessation Education Requested by Patient: No Hx Alcohol Use: No Hx Substance Use: No Review of Systems Review of Systems: Per H&P. I have no additions or deletions Physical Exam Constitutional: WD/WN, vitals as above ENMT: external ear and nose normal, oropharynx normal Neck: trachea midline, no thyromegaly Respiratory: Coarse rhonchi bilaterally without wheezing Cardiovascular: RRR, no murmur, no edema Gastrointestinal (Abdomen): normal bowel sounds, soft, nontender, no hepatosplenomegaly Skin: no rashes, warm and dry Results & Data Vital Signs (Past 12 Hours) Vital Signs Temp Pulse Resp BP Pulse Ox 05/08/19 07:53 36.9 C 57 L 19 167/60 H 89 L 05/08/19 04:43 36.9 C 50 L 24 159/83 H 90 05/07/19 23:52 36.3 C L 49 L 20 143/79 H 92 Laboratory Results 05/07/19 10:13 05/07/19 10:13 05/07/19 10:26 VBG pH 7.33 L VBG pCO2 61 H VBG pO2 32 VBG HCO3 32 VBG O2 Saturation < 60.0 VBG Base Excess 4.2 Diagnostic Findings Chest x-ray from admission was independently reviewed. Deep brain stimulator pacemaker is noted. Lung volumes are slightly low with some coarsening of the bronchovascular markings. No acute airspace opacity identified. PG Care Time/CCT Total # of Minutes Spent Total Time Spent with Patient: Total time spent is greater than 50% in coordination of care (as documented) at patient's floor/unit and/or counseling patient:
[2019-05-08] MEDS: FORMOTEROL 20 MCG/2 ML VIAL NEB SCH ×2 (10:04→19:18)
[2019-05-08] MEDS ORDERED: ALBUT/IPRATROP 3MG/0.5MG NEB 3 ML VIAL NEB SCH (12:00)
[2019-05-08] MEDS: ALBUT/IPRATROP 3MG/0.5MG NEB 3 ML VIAL NEB SCH ×2 (13:10→19:19)
--- NOTE | 2019-05-08 13:36 | Hospitalist Progress Note ---
Date of Service May 08, 2019 Assessment & Plan (1) Acute hypoxemic respiratory failure: Acute on chronic resp failure (chronic requirements of 2L via NC at night) likely related to COPD exacerbation vs. possible aspiration bronchitis. - Resp failure associated with hypoxia and hypercarbia in setting of obstructive lung disease. - Has been requiring 4L via NC during this admission; wean as tolerated. - Pulm consulted, recommend BiPAP qhs with follow up VBG in the morning. - Treatment of COPD as noted below. - Will require AM ABG (not VBG) to qualify for BiPAP at home -- will order study once patient is approaching discharge date. (2) COPD exacerbation: - CXR was negative for opacity. Procalcitonin was negative. - Duonebs q6hrWA, Mucinex 1200 mg BID, Sodium chloride nebs BID, Pulmicort and Performist BID. - Flutter valve as tolerated. - Augmentin 875 mg BID. - No indication for steroid therapy per pulm recs. (3) Choking due to food (regurgitated): - S/p barium swallow at [facility] in January 2019. Also evaluated by speech therapy at [facility] on 03/19/19 (see GI note for details) - Continue regular diet, liquid consistency. - On Augmentin as noted above for aspiration coverage. (4) Parkinsonism: - Continue Sinemet QID and Propanolol as prescribed. (5) Essential tremor: - Continue Propanolol -- concern for taking beta erick in setting of bradycardia. (6) BPH with obstruction/lower urinary tract symptoms: - Continue Proscar and Flomax as prescribed. - Denies urinary retention. (7) Peptic ulcer disease: - Noted on EGD in May 2017. - PPI daily. (8) Essential (hemorrhagic) thrombocythemia: - Follows with [facility]. - Continue Hydrea 1000 mg qAM. (9) Depression: - Continue Lexapro 15 mg daily and Klonopin 1 mg qhs. (10) Macrocytic anemia: - Macrocytic anemia noted on labs. - Will order B12 and folate levels in the AM. (11) Elevated alkaline phosphatase level: - Chronic elevation in alk phos levels. - Monitor as outpatient. (12) DVT prophylaxis: - Heparin q8hr. Dispo: PCU/tele for treatment of resp failure; will likely need BiPAP qhs approval prior to discharge. Case management following. Subjective Pt. has a productive cough, chest congestion this morning. Clear sputum production. C/o SOB at rest and with exertion. Has been requiring O2 via NC -- on 2L at home qhs. Denies nausea/vomiting, abd pain, constipation. Pulm consulted, appreciate input. Review of Systems Review of Systems: All systems reviewed & are unremarkable except as noted in HPI & below Constitutional: no fever, no chills, no fatigue, no weakness and no anorexia Respiratory: + cough, + chest congestion, + dyspnea, + dyspnea on exertion and + sputum production; no wheezing Cardiovascular: no chest pain, no palpitations and no edema Gastrointestinal: no abdominal pain, no nausea, no vomiting and no constipation Genitourinary: no difficulty urinating Musculoskeletal: no back pain and no joint pain Integumentary: no non-healing lesions Physical Exam Physical Exam: General: Resting comfortably HEENT: NC/AT; PERRLA with EOMI; [place] conjunctiva, MMM. No erythema of posterior pharynx Neck: Supple and nontender Cardiac: RRR Lungs: on 4L via NC; diminished throughout, some wheezing and rhonchi noted in upper lung wills. Abdomen: Bowel normoactive X 4; Nontender to palpation Extremities: Warm. No edema present Neuro: No focal weakness Skin: No rash Results & Data Vital Signs (Past 12 Hours) Vital Signs Temp Pulse Pulse Resp BP BP Pulse Ox 05/08/19 13:15 43 L 22 92 05/08/19 10:57 36.4 C L 52 L 20 167/84 H 90 05/08/19 10:10 52 L 18 90 05/08/19 07:53 36.9 C 57 L 19 167/60 H 89 L 05/08/19 06:45 49 L 05/08/19 04:43 36.9 C 50 L 24 159/83 H 90 PG Care Time/CCT Total # of Minutes Spent Total Time Spent with Patient: Total time spent is greater than 50% in coordination of care (as documented) at patient's floor/unit and/or counseling patient:
--- NOTE | 2019-05-08 16:06 | Gastroenterology Progress Note ---
Date of Service May 08, 2019 cc dysphagia HPI with patient for H and P. NO abd pain Assessment & Plan (1) Dysphagia: I feel this is prodominantly oropharygeal dysphagia and important to have speech path continue to work with patient Pt has barium swallow 01/2019 showing lodging of barium pill so reasonable to do EGD but lung needs optimized so outpt. Pt states he already has EGD scheduled with DR Gonzales for Dec 2 so hopefully he will be able to get that done then. Will sign off. Review of Systems Respiratory: + dyspnea Cardiovascular: no chest pain Physical Exam Constitutional: WD/WN, vitals as above Cardiovascular: RRR, no murmur, no edema Gastrointestinal (Abdomen): normal bowel sounds, soft, nontender, no hepatosplenomegaly Neurologic: PERRL, EOMI, accommodation nl, no face palsy, no dysarthria Psychiatric: A+Ox3, euthymic affect Results & Data Vital Signs (Past 12 Hours) Vital Signs Temp Pulse Pulse Resp BP BP Pulse Ox 05/08/19 15:00 36.4 C L 49 L 19 132/75 93 05/08/19 13:15 43 L 22 92 05/08/19 10:57 36.4 C L 52 L 20 167/84 H 90 05/08/19 10:10 52 L 18 90 05/08/19 07:53 36.9 C 57 L 19 167/60 H 89 L 05/08/19 06:45 49 L 05/08/19 04:43 36.9 C 50 L 24 159/83 H 90
[2019-05-08] MEDS: AMOXICILLIN/CLAVULANATE 875 MG TAB PO SCH (18:12)
[2019-05-08] MEDS: BUDESONIDE 0.5 MG/2 ML VIAL (PULMICORT) NEB SCH (19:18)
[2019-05-08] MEDS: SODIUM CHLOR 7% 4 ML NEB NEB SCH (19:19)
[2019-05-08] MEDS: clonazePAM 1 MG TAB PO SCH (20:53)
[2019-05-08] MEDS: TAMSULOSIN HCL 0.4 MG CAP PO SCH (20:54)
[2019-05-08] MEDS: FINASTERIDE 5 MG TAB PO SCH (20:55)
[2019-05-08] MEDS: guaiFENesin 600 MG TABCR PO SCH (20:55)
[2019-05-09] MEDS: HEPARIN SOD 5,000 UNIT/0.5 ML VIAL SQ SCH ×3 (05:21→21:19)
[2019-05-09 06:35] LABS: Base Excess VBG 7.1 mEq/L; Oxygen Saturation VBG 86.6 %; pH VBG 7.44 (7.36-7.41)
[2019-05-09] MEDS: ALBUT/IPRATROP 3MG/0.5MG NEB 3 ML VIAL NEB SCH ×3 (06:56→20:26)
[2019-05-09] MEDS: SODIUM CHLOR 7% 4 ML NEB NEB SCH ×2 (07:00→20:43)
[2019-05-09] MEDS: BUDESONIDE 0.5 MG/2 ML VIAL (PULMICORT) NEB SCH ×2 (07:00→20:43)
[2019-05-09] MEDS: FORMOTEROL 20 MCG/2 ML VIAL NEB SCH ×2 (07:00→20:43)
[2019-05-09 08:11] LABS: Folate (Folic Acid) 12.75 ng/ml (>5.38)
[2019-05-09] MEDS ORDERED: HydrALAZINE HCL 20 MG/ML VIAL IV ONE (08:22)
[2019-05-09] MEDS: CARBIDOPA/LEVODOPA 25/100MG TAB PO SCH ×4 (08:30→21:18)
[2019-05-09] MEDS: ALBUTEROL HFA 8 GM INHALER INH PRN (08:30)
[2019-05-09] MEDS: PROPRANOLOL HCL 60 MG LA CAP PO SCH (08:31)
[2019-05-09] MEDS: guaiFENesin 600 MG TABCR PO SCH ×2 (08:31→21:17)
[2019-05-09] MEDS: AMOXICILLIN/CLAVULANATE 875 MG TAB PO SCH ×2 (08:31→17:36)
[2019-05-09] MEDS: HYDROXYUREA 500 MG CAP PO SCH (08:31)
[2019-05-09] MEDS: IPRATROPIUM BROMIDE NASAL SPRAY 0.06% 15ML NAE SCH ×3 (08:32→21:14)
[2019-05-09] MEDS: ESCITALOPRAM OXALATE 10 MG TAB PO SCH (08:32)
[2019-05-09] MEDS: PANTOprazole 40 MG TAB PO SCH (08:38)
--- NOTE | 2019-05-09 11:12 | Hospitalist Progress Note ---
Date of Service May 09, 2019 Assessment & Plan (1) Acute hypoxemic respiratory failure: Acute on chronic resp failure (chronic requirements of 2L via NC at night) likely related to COPD exacerbation vs. possible aspiration bronchitis. - Resp failure associated with hypoxia and hypercarbia in setting of obstructive lung disease. - Has been requiring 4L via NC during this admission; also using BiPAP qhs. - Pulm consulted, appreciate input. - Treatment of COPD as noted below. - Improvement in CO2 following BiPAP use overnight -- will need AM ABG to qualify for BiPAP at home prior to discharge. (2) COPD exacerbation: - CXR was negative for opacity. Procalcitonin was negative. - Duonebs q6hrWA, Mucinex 1200 mg BID, Sodium chloride nebs BID, Pulmicort and Performist BID. - Flutter valve as tolerated. - Augmentin 875 mg BID. - No indication for steroid therapy per pulm recs. (3) Hypertension: - BP has been elevated, 160-170's. - Continue home Propanolol. - Will start Lisinopril 2.5 mg qhs - titrate ACEI as tolerated for BP control. (4) Choking due to food (regurgitated): - S/p barium swallow at [facility] in January 2019. Also evaluated by speech therapy at [facility] on 03/19/19 (see GI note for details) - Continue regular diet per speech therapy recs. - On Augmentin as noted above for aspiration coverage. - F/u for EGD in May 2019. - GI consulted, appreciate input. (5) Parkinsonism: - Continue Sinemet QID and Propanolol as prescribed. (6) Essential tremor: - Continue Propanolol - monitor HR in setting of bradycardia. Pt. reports he cannot miss dose of beta erick due to tremor. (7) BPH with obstruction/lower urinary tract symptoms: - Continue Proscar and Flomax as prescribed. - Denies urinary retention. (8) Peptic ulcer disease: - Noted on EGD in May 2017. - PPI daily. 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 - Continue Hydrea 1000 mg qAM. (10) Depression: - Continue Lexapro 15 mg daily and Klonopin 1 mg qhs. (11) Macrocytic anemia: - Macrocytic anemia noted on labs. - B12 and Folate levels WNL. (12) Elevated alkaline phosphatase level: - Chronic elevation in alk phos levels. - Monitor as outpatient. (13) DVT prophylaxis: - Heparin q8hr. Dispo: PCU/tele for treatment of resp failure; will need BiPAP qhs approval prior to discharge. Case management following. Subjective Pt. reports BiPAP helped with breathing last evening -- he tolerated mask until 4 am then removed it after it was tight fitting across his face. CO2 level improved on AM VBG lab. He has a nonproductive cough. Shortness of breath has not improved since admission. Last BM was 2 days ago. Pulm following, appreciate input. Review of Systems Review of Systems: All systems reviewed & are unremarkable except as noted in HPI & below Constitutional: + fatigue and + weakness; no fever, no chills and no anorexia Respiratory: + cough, + dyspnea and + dyspnea on exertion; no sputum production and no wheezing Cardiovascular: no chest pain, no palpitations and no edema Gastrointestinal: + constipation; no abdominal pain and no nausea Genitourinary: no difficulty urinating Musculoskeletal: no back pain and no joint pain Integumentary: no non-healing lesions Physical Exam Physical Exam: General: Resting comfortably HEENT: NC/AT; PERRLA with EOMI; [place] conjunctiva, MMM. No erythema of posterior pharynx Neck: Supple and nontender Cardiac: RRR Lungs: on 4L via NC; wheezing and rhonchi noted in all lung wills. Abdomen: Bowel normoactive X 4; Nontender to palpation Extremities: Warm. No edema present Neuro: No focal weakness Skin: No rash Results & Data Vital Signs (Past 12 Hours) Vital Signs Temp Pulse Pulse Resp BP Pulse Ox 05/09/19 07:56 50 L 30 H 169/94 H 90 05/09/19 07:00 36.5 C 48 L 24 170/120 H 96 05/09/19 03:55 36.6 C 48 L 19 150/76 H 92 05/09/19 01:16 51 L 18 90 05/08/19 23:39 37.0 C 51 L 19 123/81 90 Laboratory Results 05/09/19 05/09/19 05/09/19 Range/Units 06:16 06:16 06:16 VBG pH 7.44 H (7.36-7.41) VBG pCO2 49 (38-50) mmHg VBG pO2 50 mmHg VBG HCO3 33 mmol/L VBG O2 Saturation 86.6 % VBG Base Excess 7.1 mEq/L Barometric Pressure 732.2 mm/Hg Vitamin B12 635 (211-911) pg/ml Folate 12.75 (>5.38) ng/ml Procalcitonin < 0.05 (0-0.5) ng/ml PG Care Time/CCT Total # of Minutes Spent Total Time Spent with Patient: Total time spent is greater than 50% in coordination of care (as documented) at patient's floor/unit and/or counseling patient:
--- NOTE | 2019-05-09 18:33 | Pulmonology Progress Note ---
Date of Service May 09, 2019 Patient is a 68-year-old male with a history of Parkinson's disease and recurrent aspiration events who was admitted to the hospital with chest congestion, cough, and progressive shortness of breath. The patient has been working with a speech therapist in the outpatient setting for his aspiration issues. He reports an extensive history of tobacco abuse but quit smoking about 4 years ago. He reports that he has been experiencing significant chest congestion and an inability to expectorate phlegm over the last week or so. He has not had fevers or chills. He is maintained on a regiment of Advair and as needed albuterol in the outpatient setting and does state that these are beneficial. He has not noted any chest pain or palpitations. He believes he has had pulmonary function test performed previously but he cannot recall where. He does use oxygen at night. His does endorse snoring and occasional witnessed apneas but apparently the patient has had sleep studies in the past which have not demonstrated significant sleep disordered breathing. He is never been placed on nocturnal positive airway pressure previously. Patient was tried on noninvasive positive pressure ventilation last evening and appeared to tolerate it with his O2 supplementation . Assessment & Plan (1) Macrocytic anemia: (2) Essential (hemorrhagic) thrombocythemia: (3) Hypercapnic respiratory failure: (4) Acute hypoxemic respiratory failure: (5) Choking due to food (regurgitated): (6) Dysphagia: (7) COPD exacerbation: (8) Aspiration into airway: I have followed this patient for several years. Clearly signs and symptoms from his parkinsonism have worsened assess his dysphasia. There is no question that he is chronically aspirating and appears to have tolerated noninvasive positive pressure ventilation last evening. This will continue along with oxygen supplementation at 4 L. Patient will need to continue with speech therapy and additional instruction at [facility] because of his chronic aspiration. His white count has normalized and I believe he is close to baseline and consideration of discharge within the next 24 to 48 hours can be made . We will need to order a trilogy unit as an outpatient. Encounter type: initial encounter Qualified Code(s): T17.908A - Unspecified foreign body in respiratory tract, part unspecified causing other injury, initial encounter Review of Systems Constitutional: no problem reported Eyes: no problem reported Ear, Nose, Mouth, Throat: no problem reported Respiratory: no problem reported Cardiovascular: no problem reported Gastrointestinal: no problem reported Genitourinary: no problem reported Musculoskeletal: no problem reported Integumentary: no problem reported Neurologic: no problem reported Psychiatric: no problem reported Endocrine: no problem reported Hematologic / Lymphatic: no problem reported Allergy / Immunological: no problem reported Physical Exam Constitutional: well developed and well nourished; no acute distress Eyes: PERRL, conjunctivae normal, anicteric sclerae ENMT: external ear and nose normal, oropharynx normal Neck: trachea midline, no thyromegaly Respiratory: normal respiratory effort Auscultation: lungs clear to auscultation bilaterally Cardiovascular: RRR, no murmur, no edema Palpation: normal PMI; no thrill Gastrointestinal (Abdomen): normal bowel sounds, soft, nontender, no hepatosplenomegaly Musculoskeletal: no cyanosis or clubbing, extremities motor strength 5/5 Gait: normal gait Skin: no rashes, warm and dry Neurologic: PERRL, EOMI, accommodation nl, no face palsy, no dysarthria Psychiatric: A+Ox3, euthymic affect Lymphatic: no cervical or axillary lymphadenopathy Results & Data Vital Signs (Past 12 Hours) Vital Signs Temp Pulse Resp BP Pulse Ox 05/09/19 15:48 37.3 C 54 L 18 150/89 H 92 05/09/19 12:46 52 L 18 91 05/09/19 11:50 36.5 C 54 L 24 153/81 H 91 05/09/19 07:56 50 L 30 H 169/94 H 90 05/09/19 07:00 36.5 C 48 L 24 170/120 H 96 PG Care Time/CCT Total # of Minutes Spent Total Time Spent with Patient: Total time spent is greater than 50% in coordination of care (as documented) at patient's floor/unit and/or counseling patient:
[2019-05-09] MEDS: TAMSULOSIN HCL 0.4 MG CAP PO SCH (21:14)
[2019-05-09] MEDS: clonazePAM 1 MG TAB PO SCH (21:16)
[2019-05-09] MEDS: FINASTERIDE 5 MG TAB PO SCH (21:17)
[2019-05-09] MEDS: LISINOPRIL 2.5 MG TAB PO SCH (21:18)
[2019-05-10] MEDS: HEPARIN SOD 5,000 UNIT/0.5 ML VIAL SQ SCH ×3 (05:41→21:11)
[2019-05-10] MEDS: ALBUT/IPRATROP 3MG/0.5MG NEB 3 ML VIAL NEB SCH ×4 (07:10→22:57)
[2019-05-10] MEDS: SODIUM CHLOR 7% 4 ML NEB NEB SCH ×2 (07:14→19:02)
[2019-05-10] MEDS: FORMOTEROL 20 MCG/2 ML VIAL NEB SCH ×2 (07:14→19:01)
[2019-05-10] MEDS: BUDESONIDE 0.5 MG/2 ML VIAL (PULMICORT) NEB SCH (07:14)
[2019-05-10 07:24] LABS: Hematocrit (blood only) 38.4 % (42-52); Hemoglobin 12.9 g/dL (14.0-18.0); Mean Corpuscular Hemoglobin 40.7 pg (25-34); Mean Corpuscular Hgb Conc 33.6 g/dL (32-36); Mean Corpuscular Volume 121.1 fL (80-100); Mean Platelet Volume 9.9 fL (7.4-10.4); Platelet Count 200 K/uL (130-400); RDW Standard Deviation 70.6 fL (36.4-46.3); Red Blood Count 3.17 M/uL (4.7-6.1); White Blood Count 8.96 K/uL (4.8-10.8)
[2019-05-10 07:46] LABS: BUN Creatinine Ratio 17.2 (10-20); Calcium 9.1 mg/dl (8.5-10.1); Creatinine Clr Calc Pharmacy 110.5 ml/min; Est GFR (African American) 115.2; Est GFR (Non-African American) 99.4; Potassium 3.7 mmol/L (3.5-5.1)
[2019-05-10 07:49] LABS: Albumin Globulin Ratio 0.7 (0.9-2); Bilirubin,Total 0.7 mg/dl (0.2-1); Globulin 4.3 gm/dl (2.5-4.0); Total Protein 7.3 gm/dl (6.4-8.2)
[2019-05-10] MEDS: AMOXICILLIN/CLAVULANATE 875 MG TAB PO SCH ×2 (08:37→16:27)
[2019-05-10] MEDS: HYDROXYUREA 500 MG CAP PO SCH (08:37)
[2019-05-10] MEDS: PROPRANOLOL HCL 60 MG LA CAP PO SCH (08:37)
[2019-05-10] MEDS: CARBIDOPA/LEVODOPA 25/100MG TAB PO SCH ×4 (08:38→21:08)
[2019-05-10] MEDS: ESCITALOPRAM OXALATE 10 MG TAB PO SCH (08:38)
[2019-05-10] MEDS: PANTOprazole 40 MG TAB PO SCH (08:38)
[2019-05-10] MEDS: guaiFENesin 600 MG TABCR PO SCH ×2 (08:38→21:13)
[2019-05-10] MEDS: IPRATROPIUM BROMIDE NASAL SPRAY 0.06% 15ML NAE SCH ×3 (08:39→21:07)
--- NOTE | 2019-05-10 11:22 | Hospitalist Progress Note ---
Date of Service May 10, 2019 Assessment & Plan (1) Acute hypoxemic respiratory failure: Acute on chronic resp failure (previously required 2L via NC at night) likely related to COPD exacerbation vs. possible aspiration bronchitis. - Resp failure associated with hypoxia and hypercarbia in setting of obstructive lung disease. - Has been requiring 4L via NC during the day & BiPAP qhs. - Pulm consulted, appreciate input. - Treatment of COPD as noted below. - Will need Trelegy machine at discharge -- case management following. Pt. also requested nebulizer machine at home. (2) COPD exacerbation: - CXR was negative for opacity. Procalcitonin was negative. - Duonebs q6hrWA, Mucinex 1200 mg BID, Sodium chloride nebs BID, Pulmicort and Performist BID. - Flutter valve as tolerated. - Augmentin 875 mg BID. - No indication for steroid therapy per pulm recs. (3) Hypertension: - BP has been elevated, slightly improved after starting ACEI. May be related to hospital admission, expect improvement after discharge to home. - Continue home Propanolol. - Started Lisinopril 2.5 mg qhs on 05/09 - titrate ACEI as tolerated. (4) Choking due to food (regurgitated): - S/p barium swallow at [facility] in January 2019. Also evaluated by speech therapy at [facility] on 03/19/19 (see GI note for details) - Continue regular diet per speech therapy recs. - On Augmentin as noted above for aspiration coverage. - F/u for EGD in May 2019. - GI consulted, appreciate input. - Follows at [facility] for speech therapy -- resume at discharge. (5) Sinus bradycardia: - HR 40-50's on monitor; also has had sinus pauses, ~3 seconds long, on monitor over last 24 hours. - Pt. reports that he cannot miss beta erick dose due to essential tremor. - Consult cardiology for evaluation. (6) Parkinsonism: - Continue Sinemet QID and Propanolol as prescribed. (7) Essential tremor: - Continue Propanolol as prescribed. (8) BPH with obstruction/lower urinary tract symptoms: - Continue Proscar and Flomax as prescribed. (9) Peptic ulcer disease: - Noted on EGD in May 2017. - PPI daily. 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 - Continue Hydrea 1000 mg qAM. (11) Depression: - Continue Lexapro 15 mg daily and Klonopin 1 mg qhs. (12) Macrocytic anemia: - Macrocytic anemia noted on labs. - B12 and Folate levels WNL. (13) Elevated alkaline phosphatase level: - Chronic elevation in alk phos levels. - Monitor as outpatient. (14) DVT prophylaxis: - Heparin q8hr. Dispo: Treatment of resp failure. Discharge likely on 05/11 -- will need Trelegy arranged (case management is aware, does not likely need ABG in the morning to qualify) along with script for nebulizer machine (per patient request). He was previously following with [facility] for outpatient PT/OT/Speech therapy, resume at discharge. PT/OT ordered to evaluate current functional status. He can likely be discharged to home on Saturday if approved by PT/OT. Subjective Pt. has ongoing SOB, has been requiring 4L during the day and BiPAP at night. He used BiPAP from 9 pm to 4 am this morning then removed mask. SOB occurs with exertion, denies SOB at rest. Denies chest pain. Is eating/drinking. Has not had a BM since admission. Review of Systems Review of Systems: All systems reviewed & are unremarkable except as noted in HPI & below Constitutional: no fever, no chills, no fatigue, no weakness and no anorexia Respiratory: + dyspnea on exertion; no cough, no dyspnea and no wheezing Cardiovascular: no chest pain, no palpitations and no edema Gastrointestinal: + constipation; no abdominal pain and no nausea Genitourinary: no difficulty urinating Musculoskeletal: no back pain and no joint pain Integumentary: no non-healing lesions Physical Exam Physical Exam: General: Resting comfortably, no acute distress. HEENT: NC/AT; PERRLA with EOMI; [place] conjunctiva, MMM. No erythema of posterior pharynx Neck: Supple and nontender Cardiac: RRR Lungs: on 4L via NC; diminished throughout, some wheezing noted. Abdomen: Bowel normoactive X 4; Nontender to palpation Extremities: Warm. No edema present Neuro: No focal weakness Skin: No rash Results & Data Vital Signs (Past 12 Hours) Vital Signs Temp Pulse Pulse Resp BP Pulse Ox 05/10/19 10:36 91 05/10/19 07:41 37.0 C 58 L 20 158/83 H 90 05/10/19 07:15 60 20 90 05/10/19 03:28 36.4 C L 55 L 18 161/84 H 100 05/10/19 01:54 53 L 18 91 05/09/19 23:30 36.8 C 59 L 22 119/72 100 Laboratory Results 05/10/19 05/10/19 Range/Units 06:56 06:56 WBC 8.96 (4.8-10.8) K/uL RBC 3.17 L (4.7-6.1) M/uL Hgb 12.9 L (14.0-18.0) g/dL Hct 38.4 L (42-52) % MCV 121.1 H (80-100) fL MCH 40.7 H (25-34) pg MCHC 33.6 (32-36) g/dL RDW Std Deviation 70.6 H (36.4-46.3) fL RDW Coeff of Yi 16.0 H (11.5-14.5) % Plt Count 200 (130-400) K/uL MPV 9.9 (7.4-10.4) fL Sodium 140 (136-145) mmol/L Potassium 3.7 (3.5-5.1) mmol/L Chloride 104 (98-107) mmol/L Carbon Dioxide 31 (21-32) mmol/L Anion Gap 5.0 (3-11) BUN 12 (7-18) mg/dl Creatinine 0.67 (0.6-1.4) mg/dl Est Cr Clr Drug Dosing 110.5 ml/min Est GFR ( Amer) 115.2 Est GFR (Non-Af Amer) 99.4 BUN/Creatinine Ratio 17.2 (10-20) Glucose 89 (70-99) mg/dl Calcium 9.1 (8.5-10.1) mg/dl Total Bilirubin 0.7 (0.2-1) mg/dl AST 15 (15-37) U/L ALT 7 L (12-78) U/L Alkaline Phosphatase 137 H (45-117) U/L Total Protein 7.3 (6.4-8.2) gm/dl Albumin 3.0 L (3.4-5.0) gm/dl Globulin 4.3 H (2.5-4.0) gm/dl Albumin/Globulin Ratio 0.7 L (0.9-2) PG Care Time/CCT Total # of Minutes Spent Total Time Spent with Patient: Total time spent is greater than 50% in coordination of care (as documented) at patient's floor/unit and/or counseling patient:
--- NOTE | 2019-05-10 15:00 | Pulmonology Progress Note ---
Date of Service May 10, 2019 Patient is a 68-year-old male with a history of Parkinson's disease and recurrent aspiration events who was admitted to the hospital with chest congestion, cough, and progressive shortness of breath. The patient has been working with a speech therapist in the outpatient setting for his aspiration issues. He reports an extensive history of tobacco abuse but quit smoking about 4 years ago. He reports that he has been experiencing significant chest congestion and an inability to expectorate phlegm over the last week or so. He has not had fevers or chills. He is maintained on a regiment of Advair and as needed albuterol in the outpatient setting and does state that these are beneficial. He has not noted any chest pain or palpitations. He believes he has had pulmonary function test performed previously but he cannot recall where. He does use oxygen at night. His does endorse snoring and occasional witnessed apneas but apparently the patient has had sleep studies in the past which have not demonstrated significant sleep disordered breathing. He is never been placed on nocturnal positive airway pressure previously. Patient was tried on noninvasive positive pressure ventilation last evening and appeared to tolerate it with his O2 supplementation . I have followed this patient for several years. Clearly signs and symptoms from his parkinsonism have worsened assess his dysphasia. There is no question that he is chronically aspirating and appears to have tolerated noninvasive positive pressure ventilation last evening. This will continue along with oxygen supplementation at 4 L. Patient will need to continue with speech therapy and additional instruction at [facility] because of his chronic aspiration. His white count has normalized and I believe he is close to baseline and consideration of discharge within the next 24 to 48 hours can be made . We will need to order a trilogy unit as an outpatient. Sounds more congested today and is not doing a good job of clearing secretions. There is no question he is chronically aspirating. Although speech therapy and additional sessions to improve his swallowing are always warranted and welcome it may be that we are approaching the idea of a PEG tube for feeding tube given the severe dysphasia and chronic aspiration. This has not been broached with the patient yet. A trilogy unit has been ordered for home use along with a nebulizer. Assessment & Plan (1) Macrocytic anemia: (2) Essential (hemorrhagic) thrombocythemia: (3) Hypercapnic respiratory failure: (4) Acute hypoxemic respiratory failure: (5) Choking due to food (regurgitated): (6) Dysphagia: (7) COPD exacerbation: (8) Parkinsonism: (9) Chronic pulmonary aspiration: Unfortunately chronic aspiration is an issue in this patient. We will continue airway clearance maneuvers but a possible decision on future PEG tube placement etc. may need to be addressed. Review of Systems Constitutional: no problem reported Eyes: no problem reported Ear, Nose, Mouth, Throat: no problem reported Respiratory: no problem reported Cardiovascular: no problem reported Gastrointestinal: no problem reported Genitourinary: no problem reported Musculoskeletal: no problem reported Integumentary: no problem reported Neurologic: no problem reported Psychiatric: no problem reported Endocrine: no problem reported Hematologic / Lymphatic: no problem reported Allergy / Immunological: no problem reported Physical Exam Constitutional: well developed and well nourished; no acute distress Eyes: PERRL, conjunctivae normal, anicteric sclerae ENMT: external ear and nose normal, oropharynx normal Neck: trachea midline, no thyromegaly Respiratory: normal respiratory effort Auscultation: + wheezes (Coarse rhonchi diffusely) Cardiovascular: RRR, no murmur, no edema Palpation: normal PMI; no thrill Gastrointestinal (Abdomen): normal bowel sounds, soft, nontender, no hepatosplenomegaly Musculoskeletal: no cyanosis or clubbing, extremities motor strength 5/5 Gait: normal gait Skin: no rashes, warm and dry Neurologic: PERRL, EOMI, accommodation nl, no face palsy, no dysarthria Psychiatric: A+Ox3, euthymic affect Lymphatic: no cervical or axillary lymphadenopathy Results & Data Vital Signs (Past 12 Hours) Vital Signs Temp Pulse Resp BP Pulse Ox Pulse Ox 05/10/19 13:22 57 L 20 91 05/10/19 13:10 91 05/10/19 11:37 36.8 C 60 24 94/54 L 92 05/10/19 10:36 91 05/10/19 07:41 37.0 C 58 L 20 158/83 H 90 05/10/19 07:15 60 20 90 05/10/19 03:28 36.4 C L 55 L 18 161/84 H 100 PG Care Time/CCT Total # of Minutes Spent Total Time Spent with Patient: Total time spent is greater than 50% in coordination of care (as documented) at patient's floor/unit and/or counseling patient:
[2019-05-10] MEDS: methylPREDNISolone 40 MG in SYRINGE 0 ML IV SCH (21:07)
[2019-05-10] MEDS: TAMSULOSIN HCL 0.4 MG CAP PO SCH (21:08)
[2019-05-10] MEDS: LISINOPRIL 2.5 MG TAB PO SCH (21:12)
[2019-05-10] MEDS: clonazePAM 1 MG TAB PO SCH (21:12)
[2019-05-10] MEDS: FINASTERIDE 5 MG TAB PO SCH (21:13)
[2019-05-11] MEDS: ALBUT/IPRATROP 3MG/0.5MG NEB 3 ML VIAL NEB SCH ×6 (01:12→23:05)
[2019-05-11] MEDS: SCOPOLAMINE 1.5 MG TDSY TD SCH (05:10)
[2019-05-11] MEDS: HEPARIN SOD 5,000 UNIT/0.5 ML VIAL SQ SCH ×3 (05:36→21:48)
[2019-05-11] MEDS: SODIUM CHLOR 7% 4 ML NEB NEB SCH ×2 (06:59→19:16)
[2019-05-11] MEDS: FORMOTEROL 20 MCG/2 ML VIAL NEB SCH ×2 (06:59→19:16)
--- NOTE | 2019-05-11 07:39 | XRay Report ---
XR chest 1V portable CLINICAL HISTORY: chr aspiration COMPARISON STUDY: Chest CT March 13, 2018. Chest radiograph May 07, 2019. FINDINGS: A left chest electronic device is noted as well as multiple endovascular coils which projec t over the left upper quadrant. There are cholecystectomy clips. Cardiomediastinal silhouette is stab le. Lung volumes are diminished. Left basilar opacity has developed. There may also be right basilar opacity. There are suspected trace bilateral pleural effusions. IMPRESSION: 1. Interval development of the left basilar consolidation which favors pneumonia/aspiration. Possible right basilar opacity. 2. Low lung volumes. Electronically signed by: Anibal Law M.D. 05/11/2019 7:38 AM
[2019-05-11] MEDS: guaiFENesin 600 MG TABCR PO SCH ×2 (08:29→20:23)
[2019-05-11] MEDS: ESCITALOPRAM OXALATE 10 MG TAB PO SCH (08:29)
[2019-05-11] MEDS: CHECK SCOPOLAMINE PATCH PLACEMENT SCH ×2 (08:30→16:21)
[2019-05-11] MEDS: AMOXICILLIN/CLAVULANATE 875 MG TAB PO SCH ×2 (08:30→16:22)
[2019-05-11] MEDS: PANTOprazole 40 MG TAB PO SCH (08:30)
[2019-05-11] MEDS: CARBIDOPA/LEVODOPA 25/100MG TAB PO SCH ×4 (08:31→20:24)
[2019-05-11] MEDS: IPRATROPIUM BROMIDE NASAL SPRAY 0.06% 15ML NAE SCH ×3 (08:31→20:22)
[2019-05-11] MEDS: HYDROXYUREA 500 MG CAP PO SCH (08:31)
[2019-05-11] MEDS: PROPRANOLOL HCL 60 MG LA CAP PO SCH (08:31)
[2019-05-11] MEDS: methylPREDNISolone 40 MG in SYRINGE 0 ML IV SCH ×2 (08:40→20:24)
--- NOTE | 2019-05-11 14:24 | Hospitalist Progress Note ---
Date of Service May 11, 2019 Assessment & Plan (1) Acute hypoxemic respiratory failure: Acute on chronic resp failure (previously required 2L via NC at night) likely related to COPD exacerbation vs. possible aspiration bronchitis. - Will need Trelegy machine at discharge -- case management following. Pt. also requested nebulizer machine at home. - I believe he is aspirating chronically from esophageal issues from Parkinson's. - Discussed with DERMATOLOGY NURSE Ms. Clark and Dr. Gonzales on 05/11 - Will see if we can get EGD done as this may be his only possible mode to improve his aspiration. (2) COPD exacerbation: CXR was negative for opacity. Procalcitonin was negative. - Duonebs q6hrWA, Mucinex 1200 mg BID, Sodium chloride nebs BID, Pulmicort and Performist BID. - Flutter valve as tolerated. - Augmentin 875 mg BID. - Steroids started by Dr. Nolan on 05/10. - He continues to have post-prandial coughing and regurgitation. (3) Hypertension: BP low today at 95/60. - Continue home Propanolol. - Hold ACEi - Started by prior hospitalist (4) Choking due to food (regurgitated): - S/p barium swallow at [facility] in January 2019. Also evaluated by speech therapy at [facility] on 03/19/19 (see GI note for details). - Continue regular diet per speech therapy recs. - On Augmentin as noted above for aspiration coverage. - GI consulted, appreciate input. - Follows at [facility] for speech therapy -- resume at discharge. - F/u for EGD in May 2019 vs. possibly early. (5) Sinus bradycardia: HR 40-50's on monitor; also has had sinus pauses, ~3 seconds long, on monitor over last 24 hours. - Pt. reports that he cannot miss beta erick dose due to essential tremor. - Consult cardiology for evaluation. (6) Parkinsonism: - Continue Sinemet QID and Propanolol as prescribed. (7) Essential tremor: - Continue Propanolol as prescribed. (8) BPH with obstruction/lower urinary tract symptoms: - Continue Proscar and Flomax as prescribed. (9) Peptic ulcer disease: - Noted on EGD in May 2017. - PPI daily. (10) Essential (hemorrhagic) thrombocythemia: - Follows with [facility]. - Continue Hydrea 1000 mg qAM. (11) Depression: - Continue Lexapro 15 mg daily and Klonopin 1 mg qhs. (12) Macrocytic anemia: Macrocytic anemia noted on labs. B12 and Folate levels WNL. - Hgb stable at 12.9 today. (13) Elevated alkaline phosphatase level: Chronic elevation in alk phos levels. - Monitor as outpatient. (14) DVT prophylaxis: Heparin 5000 q8hr. Subjective Feels he has hit a plateau. He is not breathing better and still has shortness of breath and cough after meals. Reports no fevers/chills, chest pain, abdominal pain, nausea, or vomiting. Physical Exam Constitutional: WD/WN, vitals as above Eyes: EOM intact bilaterally; no conjunctival abnormality ENMT: external ear and nose normal, oropharynx normal Neck: trachea midline, no thyromegaly normal visual inspection Respiratory: normal respiratory effort, lungs clear to auscultation no respiratory distress Cardiovascular: RRR, no murmur, no edema Gastrointestinal (Abdomen): Inspection/Auscultation: abdomen normal to inspection; abdomen not distended Musculoskeletal: no cyanosis or clubbing, extremities motor strength 5/5 Skin: no rashes, warm and dry Neurologic: moves all extremities and awake Resting tremor Psychiatric: Orientation: alert, oriented to person and cooperative Results & Data Vital Signs (Past 12 Hours) Vital Signs Temp Pulse Resp BP Pulse Ox 05/11/19 11:44 91 05/11/19 11:10 57 L 26 H 85 L 05/11/19 11:06 36.4 C L 59 L 20 95/58 L 86 L 05/11/19 07:47 36.3 C L 56 L 18 98/47 L 90 05/11/19 07:02 57 L 20 92 05/11/19 04:18 36.8 C 55 L 24 109/69 100 PG Care Time/CCT Total # of Minutes Spent Total Time Spent with Patient: Total time spent is greater than 50% in coordination of care (as documented) at patient's floor/unit and/or counseling patient:
--- NOTE | 2019-05-11 15:58 | Progress Note ---
DATE: 05/11/2019 The patient continues to struggle with eating with multiple choking episodes. His lung condition is chronic and appears to be optimized according to Dr. Gaffney. He did have a video swallow done at [facility] in January, which showed significant oropharyngeal dysphagia and dysmotility, but there was also hang up of a barium tablet in the distal esophagus suggesting a possible stricture, which may be amenable to dilation and possibly offer him some improvement in his ability to swallow. I spoke to the patient and his and daughter in the room today and offered the option for an EGD tomorrow. I explained that the major risk is the sedation for the procedure. They are willing to proceed to see if we can get there something that we can dilate and may improve his swallowing. We will schedule the procedure for 1:00 tomorrow. He is supposed to be n.p.o. after midnight for the procedure.
--- NOTE | 2019-05-11 16:50 | Cardiology Consultation ---
Date of Consultation May 11, 2019 Assessment & Plan (1) Sinus bradycardia: (2) Sinus pause: (3) Chronic obstructive pulmonary disease: ASSESSMENT/PLAN: 1. Sinus bradycardia: He is completely asymptomatic and apparently this is a chronic issue. Given lack of symptoms, would not recommend pacemaker at this time. We discussed potentially decreasing or discontinuing propanolol however he states that he prefers to remain on the medication due to his tremors, which remained despite on the medication. Tremors were unacceptable for his lifestyle off of propanolol. TSH ordered to be done with next lab draw in the morning; if abnormal, treatment as per primary service. 2. Sinus pause: These occurred while sleeping. If he should develop any symptoms, would consider pacemaker however at this time, this is not the case. He likely has been having this issue for some time however now he is on a monitor, and therefore they are being recognized. 3. COPD: Shortness of breath thought to be due to pulmonary etiology. He appears euvolemic on exam. As per pulmonology and primary service. 4. Disposition: Please call with any other questions or concerns. Thank you for allowing me to participate in the care of your patient. Please call for any other questions or concerns. Sincerely, Joce Harrell M.D. History of Present Illness Reason for Consultation: Sinus pauses and bradycardia Requesting Physician: Francisca Padilla Attending Physician: Raymundo Gaffney MD History of Present Illness Mr. Schwarz is a pleasant 68-year-old gentleman with history significant for Parkinson's, COPD, dysphagia, and hypertension. He was admitted on 05/07/2019 with acute on chronic hypercarbic respiratory failure. He is being followed by pulmonology and primary hospitalist service. Cardiology was consulted for bradycardia and pauses. He states that he is followed closely by [facility] pulmonology at [facility]. He recalls that his heart rate is typically in the mid 50s, but sometimes as low as the 40s. He is completely asymptomatic in this regard. He denies lightheadedness, syncope, near-syncope. He denies chest pain. He does have shortness of breath. He believes that the shortness of breath is not improving. He admits that he has a difficult time swallowing and sometimes chokes. There has been concern for aspiration. He states that he has had edema recently which resolved by elevating his feet. He has not required diuretic therapy. He and his state that he has had an echocardiogram done. They believe it has been done in the past few months, however it is not available in the system for review. He recalls having echo done as ordered by his [facility] physician for edema. He admits that he is sedentary. He does use a walker to help with ambulation. He denies palpitations. He denies melena, hematochezia, hematuria, or other bleeding. He has been taking propanolol for tremors. He tried to stop it on his own accord in the past but is tremor significantly worsened, prompting him to restart the medication. He prefers to remain on propanolol. He does have a brain stimulator in place as well. Review of systems: As above. Review of systems otherwise negative/unremarkable. Family history: Father with CHF. Social history: Smoked 1 pack per day until 2014. No alcohol. Lives at home with his . They have an adopted son who lives in [place]. 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 He was unaccompanied however he did call his via telephone to inquire about the echo. Allergies Allergy/AdvReac Type Severity Reaction Status Date / Time No Known Allergies Allergy Verified 05/07/19 11:03 Home Medications Home Medications Medication Instructions Recorded Confirmed Type albuterol sulfate 2 puff INHALATION Q4H PRN 04/07/18 05/07/19 History carbidopa-levodopa 2 tabs PO QID 04/07/18 05/07/19 History clonazepam 1 mg PO HS 04/07/18 05/07/19 History escitalopram oxalate 1.5 tab PO QAM 04/07/18 05/07/19 History fluticasone propion-salmeterol 1 puff INHALATION BID 04/07/18 05/07/19 History hydroxyurea 2 cap PO QAM 04/07/18 05/07/19 History omeprazole 1 cap PO QAM 04/07/18 05/07/19 History ondansetron 4 mg PO BID PRN 04/07/18 05/07/19 History propranolol 1 cap PO QAM 04/07/18 05/07/19 History tamsulosin [Flomax] 0.4 mg PO QPM 01/27/19 05/07/19 History ipratropium bromide 0.03 % nasal 2 sprays INTNAS TID #30 ml 02/24/19 05/07/19 Rx spray finasteride 5 mg tablet 5 mg PO QPM 90 Days #90 tab 03/04/19 05/07/19 Rx Patient History Medical History Choking due to food (regurgitated) COPD (chronic obstructive pulmonary disease) Depression Dysphagia chronic hx of dysphagia x 1 year felt 2/2 parkinson's. Hx aspiration PNA (no current acute pulmonary complaints; "at baseline" at PAT visit 02/03/19). Moderate esophageal dysmotility with no aspiration per barium swallow 01/2019. Follows with pulmonary- monitoring Dysphagia Essential (hemorrhagic) thrombocythemia controlled on hydroxyurea F/U AT [facility] History of diverticulitis History of GI bleed duodenal ulcer (2017)- on PPI History of pancreatitis chronic Hypertension Nocturnal hypoxia on 2L HS Parkinsons DX'D 3 YRS AGO-F/U [facility]-dysphagia, fatigue, balance issues, voice modulation issue, tremor in hands. 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 OR/surgeon made aware Family History Grandfather Family history of colon cancer Social History (Updated 05/07/19 @ 12:39 by Jose Luis Mendieta MD) Preferred Language: Cook Islander Communication Ability: Effective Senior Front End Engineer Required: No Beliefs That Will Affect Care: None marital status: Current Living Situation: Spouse Other Information That Helps Us Care for You: No Feels Safe at Home: Yes Safety Concerns: Feels Safe At This Time Smoking Status: Former smoker Do You Dip or Chew Tobacco: No ; Smoking End Date: 2012 ; Second Hand Exposure: No ; Tobacco Cessation Education Requested by Patient: No Hx Alcohol Use: No Hx Substance Use: No Physical Exam Physical Exam: Gen.: No acute distress. Alert and oriented. HEENT: Anicteric sclera. Neck: No JVD. No bruits. Normal carotid upstrokes bilaterally. Cardiac: PMI was nondisplaced. No ventricular heave. Bradycardic but regular in the 50s. Distant heart sounds. No murmurs, rubs, or gallops. Pulmonary: Decreased breath sounds throughout with occasional crackles at the right base. Poor inspiratory effort. Abdomen: Soft, nontender, nondistended, with hypoactive bowel sounds. No bruits noted. Extremities: 2+ radial pulses bilaterally. 2+ posterior tibialis pulses bilaterally. No edema or cyanosis. Psychiatric: Flat affect. Results & Data Vital Signs (Past 12 Hours) Vital Signs Temp Pulse Pulse Resp BP Pulse Ox 05/11/19 15:40 36.7 C 60 18 134/70 91 05/11/19 15:12 57 L 22 91 05/11/19 11:44 91 05/11/19 11:10 57 L 26 H 85 L 05/11/19 11:06 36.4 C L 59 L 20 95/58 L 86 L 05/11/19 07:47 36.3 C L 56 L 18 98/47 L 90 05/11/19 07:02 57 L 20 92 Laboratory Results Laboratory Results - last 48 hr 05/10/19 05/10/19 06:56 06:56 WBC 8.96 RBC 3.17 L Hgb 12.9 L Hct 38.4 L MCV 121.1 H MCH 40.7 H MCHC 33.6 RDW Std Deviation 70.6 H RDW Coeff of Yi 16.0 H Plt Count 200 MPV 9.9 Sodium 140 Potassium 3.7 Chloride 104 Carbon Dioxide 31 Anion Gap 5.0 BUN 12 Creatinine 0.67 Est Cr Clr Drug Dosing 110.5 Est GFR ( Amer) 115.2 Est GFR (Non-Af Amer) 99.4 BUN/Creatinine Ratio 17.2 Glucose 89 Calcium 9.1 Total Bilirubin 0.7 AST 15 ALT 7 L Alkaline Phosphatase 137 H Total Protein 7.3 Albumin 3.0 L Globulin 4.3 H Albumin/Globulin Ratio 0.7 L Diagnostic Findings Telemetry personally reviewed: Sinus bradycardia. 3-4 second pauses at 4:35 a.m. this morning while sleeping. He also had a 3.3 second pause at 8:22 a.m. yesterday, but states that he was likely sleeping. ECG personally reviewed: ECG 05/07/2019: Sinus bradycardia 49 bpm. Medications Administered Current Inpatient Medications Acetaminophen (Tylenol) 650 mg PO Q4H PRN PRN Reason: Pain or Fever Stop: 06/06/19 13:39 Albuterol (Ventolin Hfa) 2 puffs INH Q4H PRN PRN Reason: Shortness Of Breath Or Wheezing Stop: 06/06/19 13:39 Last Admin: 05/09/19 08:30 Dose: 2 puffs Documented by: Albuterol (Duoneb) 3 ml NEB Q4R [facility] Stop: 06/09/19 18:59 Last Admin: 05/11/19 15:08 Dose: 3 ml Documented by: Amoxicillin/Clavulanate Potassium (Augmentin 875mg) 1 tab PO BIDM [facility] Stop: 05/15/19 16:59 Last Admin: 05/11/19 16:22 Dose: 1 tab Documented by: Carbidopa/Levodopa (Sinemet 25/100 Mg) 2 tab PO QID [facility] Stop: 06/06/19 13:59 Last Admin: 05/11/19 16:22 Dose: 2 tab Documented by: Clonazepam (Klonopin) 1 mg PO HS [facility] Stop: 06/06/19 20:59 Last Admin: 05/10/19 21:12 Dose: 1 mg Documented by: Escitalopram Oxalate (Lexapro Tab) 15 mg PO QAM [facility] Stop: 06/07/19 08:59 Last Admin: 05/11/19 08:29 Dose: 15 mg Documented by: Finasteride (Proscar) 5 mg PO QPM [facility] Stop: 06/06/19 20:59 Last Admin: 05/10/19 21:13 Dose: 5 mg Documented by: Formoterol Fumarate (Perforomist) 20 mcg NEB BIDR [facility] Stop: 06/07/19 09:59 Last Admin: 05/11/19 06:59 Dose: 20 mcg Documented by: Guaifenesin (Mucinex) 1,200 mg PO Q12 [facility] Stop: 06/07/19 20:59 Last Admin: 05/11/19 08:29 Dose: 1,200 mg Documented by: Heparin Sodium (Porcine) (Heparin Sodium (Porcine)) 5,000 units SQ Q8 [facility] Stop: 06/06/19 13:59 Last Admin: 05/11/19 13:02 Dose: 5,000 units Documented by: Hydroxyurea (Hydrea) 1,000 mg PO QAM [facility] Stop: 06/07/19 08:59 Last Admin: 05/11/19 08:31 Dose: 1,000 mg Documented by: Methylprednisolone 40 mg/ (Syringe) 0.64 mls @ 1.5 mls/min IV BID [facility] Stop: 06/09/19 20:59 Last Admin: 05/11/19 08:40 Dose: 1.5 mls/min Documented by: Ipratropium Melba (Atrovent Nasal Elizabeth 0.06%) 2 sprays TIERA TID [facility] Stop: 06/06/19 20:59 Last Admin: 05/11/19 13:02 Dose: 2 sprays Documented by: Miscellaneous (Check Scopolamine Patch Placement) 1 ea N/A QS [facility] Stop: 06/10/19 07:59 Last Admin: 05/11/19 16:21 Dose: 1 ea Documented by: Miscellaneous (Remove Transderm-Scop Patch) 1 ea N/A Q3D@0759 [facility] Stop: 06/13/19 07:58 Ondansetron HCl (Zofran Odt) 4 mg PO BID PRN PRN Reason: Nausea Stop: 06/06/19 13:57 Ondansetron HCl (Zofran) 4 mg IV Q6H PRN PRN Reason: Nausea Stop: 06/06/19 13:39 Pantoprazole Sodium (Protonix) 40 mg PO QAM [facility] Stop: 06/07/19 08:59 Last Admin: 05/11/19 08:30 Dose: 40 mg Documented by: Propranolol HCl (Inderal La) 60 mg PO QAM [facility] Stop: 06/07/19 08:59 Last Admin: 05/11/19 08:31 Dose: 60 mg Documented by: Scopolamine (Transderm-Scop) 1.5 mg TD Q3D@0800 [facility] Stop: 06/10/19 04:59 Last Admin: 05/11/19 05:10 Dose: 1.5 mg Documented by: Sodium Chloride (Sodium Chlor 7% Neb Solution) 4 ml NEB BIDR [facility] Stop: 06/09/19 18:59 Last Admin: 05/11/19 06:59 Dose: 4 ml Documented by: Tamsulosin HCl (Flomax) 0.4 mg PO QPM [facility] Stop: 06/06/19 20:59 Last Admin: 05/10/19 21:08 Dose: 0.4 mg Documented by: PG Care Time/CCT Total # of Minutes Spent Total Time Spent with Patient: Total time spent is greater than 50% in coordination of care (as documented) at patient's floor/unit and/or counseling patient:
--- NOTE | 2019-05-11 17:48 | Pulmonology Progress Note ---
Date of Service May 11, 2019 Assessment & Plan (1) Hypercapnic respiratory failure: Patient tolerated BiPAP at 12/6 last night. Patient would probably benefit from this as an outpatient. Would use at bedtime and wait 4 hours after eating secondary to Parkinson's as eating is a relative contraindication to BiPAP. (2) COPD exacerbation: Continue hypertonic saline nebs as well as Mucinex. Patient is using flutter valve and this does aid in mucus evacuation. Will add a percussion vest today and mobilize patient from bed to chair as tolerated Procalcitonin is negative at less than 0.05 Patient is currently on Augmentin 1 tab p.o. twice daily Patient does have a scopolamine patch which seems to be helping. Maintain SaO2 between 88 and 92% Patient with past tobacco abuse history -quit smoking 4 years ago (3) Chronic pulmonary aspiration: Patient had barium swallow in January Continue with strict aspiration precautions Gastroenterology is following Dr. Toussaint's note had indicated possible discussion about PEG tube We will defer this discussion to the primary team and to the gastroenterology team Thank you for including us in the care of this patient. We will continue to follow along with you. Subjective Attending: Dr. Childs This is a 68-year-old male who was admitted 05/07/2019 for shortness of breath. He has a long-standing history of Parkinson's disease and has had placement of a stimulator 4 months ago. This has significantly improved his tremor and swallowing function. The patient does state that he underwent fluoroscopy and felt as though the aberrant tablet stuck. This is made him more aware of possible aspiration. Today the patient states he is doing very well with no difficulty swallowing or speaking. His son and are present and state that he seems much stronger and less short of breath. Patient is followed by Dr. Toussaint as an outpatient who is convinced that the patient has chronic asp iration. Patient feels that he is much improved. He continues on supplemental O2. He did use BiPAP last night at 12/6. He tolerated this fairly well. Patient is also using flutter valve which he indicates helps clear secretions. Patient has been in bed and requests out of bed to chair as tolerated. The patient has no fever chills. He denies any hemoptysis. He has no chest pain or tightness. He has no nausea or vomiting. Review of Systems Review of Systems: All systems reviewed & are unremarkable except as noted in HPI & below Physical Exam Physical Exam: GENERAL : No acute distress EYES: No icterus, gaze conjugate NOSE: No evidence of epistaxis MOUTH: No lesions or candidiasis NECK: Supple LUNGS: Patient does exhibit some bronchospasm on expiratory phase. He also has some rales at the bases. Good inspiratory effort. Patient does have a cough which is fairly weak. No expectorated sputum during my exam. HEART: Regular, rate controlled ABDOMEN: Soft, NT, ND, BS Present EXTREMITIES: No LE edema, pedal pulses intact and equal bilaterally NEURO: A&OX3. Tremor evidenced in the right hand. Positive for muscle atrophy globally. Results & Data Vital Signs (Past 12 Hours) Vital Signs Temp Pulse Pulse Resp BP Pulse Ox 05/11/19 15:40 36.7 C 60 18 134/70 91 05/11/19 15:12 57 L 22 91 05/11/19 11:44 91 05/11/19 11:10 57 L 26 H 85 L 05/11/19 11:06 36.4 C L 59 L 20 95/58 L 86 L 05/11/19 07:47 36.3 C L 56 L 18 98/47 L 90 05/11/19 07:02 57 L 20 92 Laboratory Results 05/10/19 06:56 05/10/19 06:56 Diagnostic Findings XR chest 1V portable 05/11/2019 CLINICAL HISTORY: chr aspiration COMPARISON STUDY: Chest CT March 13, 2018. Chest radiograph May 07, 2019. FINDINGS: A left chest electronic device is noted as well as multiple endovascular coils which project over the left upper quadrant. There are cholecystectomy clips. Cardiomediastinal silhouette is stable. Lung volumes are diminished. Left basilar opacity has developed. There may also be right basilar opacity. There are suspected trace bilateral pleural effusions. IMPRESSION: 1. Interval development of the left basilar consolidation which favors pneumonia/aspiration. Possible right basilar opacity. 2. Low lung volumes. Electronically signed by: Anibal Law M.D. 05/11/2019 7:38 AM PG Care Time/CCT Total # of Minutes Spent Total Time Spent with Patient: Total time spent is greater than 50% in coordination of care (as documented) at patient's floor/unit and/or counseling patient: 30 minutes and including discussion with Dr. Gonzales from [facility]
[2019-05-11] MEDS: TAMSULOSIN HCL 0.4 MG CAP PO SCH (20:23)
[2019-05-11] MEDS: FINASTERIDE 5 MG TAB PO SCH (20:24)
[2019-05-11] MEDS: clonazePAM 1 MG TAB PO SCH (20:26)
[2019-05-12] MEDS: CHECK SCOPOLAMINE PATCH PLACEMENT SCH ×4 (02:22→23:49)
[2019-05-12] MEDS: ALBUT/IPRATROP 3MG/0.5MG NEB 3 ML VIAL NEB SCH ×6 (03:30→23:13)
[2019-05-12 05:33] LABS: Basophils # (auto) 0.01 K/uL (0-0.2); Basophils % (auto) 0.1 %; Hematocrit (blood only) 37.1 % (42-52); Hemoglobin 12.5 g/dL (14.0-18.0); Immature Granulocytes # (auto) 0.05 K/uL (0.00-0.02); Immature Granulocytes % (auto) 0.3 %; Lymphocytes # (auto) 0.92 K/uL (1.2-3.4); Lymphocytes % (auto) 5.4 %; Mean Corpuscular Hemoglobin 41.1 pg (25-34); Mean Corpuscular Hgb Conc 33.7 g/dL (32-36); Mean Platelet Volume 9.5 fL (7.4-10.4); Monocytes # (auto) 0.68 K/uL (0.11-0.59); Neutrophils # (auto) 15.23 K/uL (1.4-6.5); Neutrophils % (auto) 90.2 %; Nucleated RBC # (auto) 0.04 K/uL (0-0); Nucleated RBC % (auto) 0.3 %; Platelet Count 234 K/uL (130-400); RDW Coefficient of Variation 16.1 % (11.5-14.5); RDW Standard Deviation 71.4 fL (36.4-46.3); Red Blood Count 3.04 M/uL (4.7-6.1); White Blood Count 16.89 K/uL (4.8-10.8)
[2019-05-12] MEDS: HEPARIN SOD 5,000 UNIT/0.5 ML VIAL SQ SCH ×3 (06:06→21:07)
[2019-05-12 06:18] LABS: Howell-Jolly Bodies 1+; Macrocytosis Present; Target Cells 1+
[2019-05-12] MEDS: FORMOTEROL 20 MCG/2 ML VIAL NEB SCH ×2 (06:59→19:50)
[2019-05-12] MEDS: SODIUM CHLOR 7% 4 ML NEB NEB SCH ×2 (06:59→19:50)
[2019-05-12] MEDS: guaiFENesin 600 MG TABCR PO SCH ×2 (08:16→21:07)
[2019-05-12] MEDS: AMOXICILLIN/CLAVULANATE 875 MG TAB PO SCH ×2 (08:16→16:55)
[2019-05-12] MEDS: IPRATROPIUM BROMIDE NASAL SPRAY 0.06% 15ML NAE SCH ×3 (08:17→21:04)
[2019-05-12] MEDS: PROPRANOLOL HCL 60 MG LA CAP PO SCH (08:18)
[2019-05-12] MEDS: CARBIDOPA/LEVODOPA 25/100MG TAB PO SCH ×4 (08:18→21:04)
[2019-05-12] MEDS: PANTOprazole 40 MG TAB PO SCH (08:18)
[2019-05-12] MEDS: HYDROXYUREA 500 MG CAP PO SCH (08:19)
[2019-05-12] MEDS: methylPREDNISolone 40 MG in SYRINGE 0 ML IV SCH ×2 (08:45→21:06)
[2019-05-12] MEDS: ESCITALOPRAM OXALATE 10 MG TAB PO SCH (08:46)
--- NOTE | 2019-05-12 09:13 | Pulmonology Progress Note ---
Date of Service May 12, 2019 Assessment & Plan (1) Hypoxia: Patient with increased supplemental oxygen needs overnight. Initiated percussion vest yesterday Increased rhonchi today We will check portable chest x-ray this morning to rule out mucous plugging We will also get an ABG to look at hypercapnic status. Continue with chest percussion, antibiotics, bronchodilators. (2) Hypercapnic respiratory failure: Patient started on BiPAP 05/22. Working on getting used to the mask and positive air pressure Patient would probably benefit from this as an outpatient. Would use at bedtime and wait 4 hours after eating secondary to Parkinson's as eating is a relative contraindication to BiPAP. (3) COPD exacerbation: No overt bronchospasm on exam. Continue hypertonic saline nebs as well as Mucinex. Continue flutter valve and percussion vest as tolerated Procalcitonin is negative at less than 0.05 Patient is currently on Augmentin 1 tab p.o. twice daily Patient does have a scopolamine patch behind right ear. Maintain SaO2 between 88 and 92% Patient with past tobacco abuse history -quit smoking 4 years ago (4) Chronic pulmonary aspiration: Patient had barium swallow in January and felt as though the barium pill got stuck Continue with strict aspiration precautions Gastroenterology is following and is planning on doing an EGD later today Dr. Toussaint's note had indicated possible discussion about PEG tube We will defer this discussion to the primary team and to the gastroenterology team Thank you for including us in the care of this patient. We will continue to follow along with you. Supervising Physician Co-Signing Physician Notes Seen and examined. Discussed with patient family bedside. He feels better but his oxygen requirement is increased. Continue aggressive coronary toilet. Think recurrent aspiration is a problem. EGD is currently pending. He is coughing and able to expectorate phlegm but this is intermittently difficult. His ABG and chest x-ray do not show any significant changes and I do not think bronchoscopy at this point time would offer him the clinical benefit as he is likely to continue aspiration events and intermittent bronchoscopy is not a long-term solution to his problems. Subjective Attending: Dr. Childs Patient seen and examined at bedside today. He seems to have more rhonchi and sputum production. He was started on pulmonary percussion vest last night and states that this is helped to loosen mucus. I am concerned and is much as he is requiring more supplemental O2 today and that he may have mucous plugging secondary to mobilization of sputum with a pulmonary vest. A chest x-ray has been ordered as well as an ABG. Patient is scheduled for EGD later today. Attempt will be made to maximize oxygenation. Based on chest x-ray and ABG results we may need to delay the EGD. Patient states he had no fever chills. He does have somewhat of an increased cough this morning. He has no hemoptysis. He is continuing to have difficulty with clearing sputum. He is more alert and awake than over the last few days. He did attempt to use BiPAP last night but had trouble with fitment of the mask. He is committed to continue to work with the BiPAP. He has no other acute complaints. Review of Systems Review of Systems: All systems reviewed & are unremarkable except as noted in HPI & below Physical Exam Physical Exam: GENERAL : No acute distress. Patient is noted to have increased cough with limited sputum clearance. EYES: No icterus, gaze conjugate NOSE: No evidence of epistaxis MOUTH: No lesions or candidiasis. Mucosa is moist NECK: Supple. No stridor LUNGS: Patient has breath sounds throughout all lung wills. There is increased rhonchi throughout and coarse rales at the bases. HEART: Regular, rate controlled. ABDOMEN: Soft, NT, ND, BS Present EXTREMITIES: No LE edema, pedal pulses intact and equal bilaterally NEURO: Alert and oriented x3. Patient continue with tremor secondary to Parkinson's. Results & Data Vital Signs (Past 12 Hours) Vital Signs Temp Pulse Pulse Resp BP Pulse Ox 05/12/19 09:01 133/70 05/12/19 08:56 36.4 C L 97 H 26 H 204/47 H 97 05/12/19 07:00 57 L 18 91 05/12/19 04:49 36.5 C 49 L 20 104/65 90 05/12/19 03:33 52 L 52 L 18 93 05/11/19 23:08 58 L 20 92 05/11/19 23:06 58 L 20 92 05/11/19 23:00 36.4 C L 56 L 22 118/71 93 Laboratory Results 05/12/19 05:21 05/10/19 06:56 11/21/19 11/23/19 11/26/19 10:26 06:16 09:17 ABG pH 7.43 ABG pCO2 42 ABG pO2 59 L ABG HCO3 27 H ABG O2 Saturation 89.7 L ABG Base Excess 2.2 H VBG pH 7.33 L 7.44 H VBG pCO2 61 H 49 VBG pO2 32 50 VBG HCO3 32 33 VBG O2 Saturation < 60.0 86.6 VBG Base Excess 4.2 7.1 Diagnostic Findings XR chest 1V portable CLINICAL HISTORY: Increased hypoxia dyspnea COMPARISON STUDY: 05/11/2019 FINDINGS: Unchanging to slightly improved poorly defined left basilar parench ymal infiltrative process. Slight improvement in aeration medial aspect of the left retrocardiac region. Lungs otherwise appear clear. Slight unchanged prominence of pulmonary vasculature. IMPRESSION: Unchanged to slightly improved poorly defined parenchymal infiltrate left base. Otherwise unchanged exam. Electronically signed by: Jett Lofton M.D. 05/12/2019 9:28 AM PG Care Time/CCT Total # of Minutes Spent Total Time Spent with Patient: Total time spent is greater than 50% in coordination of care (as documented) at patient's floor/unit and/or counseling patient: 35
[2019-05-12 09:25] LABS: Base Excess ABG 2.2 mEq/L (-9-1.8); HCO3 ABG 27 mmol/L (19-24); Oxygen Saturation ABG 89.7 % (90-95); PCO2 ABG 42 mmHg (35-46); PO2 ABG 59 mm/Hg (80-95); pH ABG 7.43 (7.35-7.45)
[2019-05-12 09:28] LABS: Allen Test Pos (Pos)
--- NOTE | 2019-05-12 09:30 | XRay Report ---
XR chest 1V portable CLINICAL HISTORY: Increased hypoxia dyspnea COMPARISON STUDY: 05/11/2019 FINDINGS: Unchanging to slightly improved poorly defined left basilar parenchymal infiltrative proces s. Slight improvement in aeration medial aspect of the left retrocardiac region. Lungs otherwise appear clear. Slight unchanged prominence of pulmonary vasculature. IMPRESSION: Unchanged to slightly improved poorly defined parenchymal infiltrate left base. Otherwis e unchanged exam. The above report was generated using voice recognition software. It may contain grammatical, syntax or spelling errors. Electronically signed by: Jett Lofton M.D. 05/12/2019 9:28 AM
--- NOTE | 2019-05-12 16:16 | Hospitalist Progress Note ---
Date of Service May 12, 2019 Assessment & Plan (1) Acute hypoxemic respiratory failure: Acute on chronic resp failure (previously required 2L via NC at night) likely related to COPD exacerbation vs. possible aspiration bronchitis. - Will need Trelegy machine at discharge -- case management following. Pt. also requested nebulizer machine at home. - I believe he is aspirating chronically from esophageal issues from Parkinson's. - Discussed with [employer] Ms. Clark and Dr. Gonzales on 05/11 - Discussed with Dr. Gonzales and pulmonary on 05/12 - Will defer EGD until tomorrow to give him another 24 hours of pulmonary toilet. Hopefully can get done tomorrow. (2) COPD exacerbation: CXR was negative for opacity. Procalcitonin was negative. - Duonebs q6hrWA, Mucinex 1200 mg BID, sodium chloride nebs BID, Pulmicort and Performist BID. - Flutter valve as tolerated. - Augmentin 875 mg BID. - Steroids started by Dr. Nolan on 05/10. - He continues to have post-prandial coughing and regurgitation. Concern for esophageal stricture, though uncertain. EGD as above. (3) Hypertension: BP low today at 95/65. - Continue home Propanolol. Patient does not want to stop this. - Holding ACEi started by prior hospitalist (4) Choking due to food (regurgitated): - S/p barium swallow at [facility] in January 2019. Also evaluated by speech therapy at [facility] on 03/19/19 (see GI note for details). - Continue regular diet per speech therapy recs. - On Augmentin as noted above for aspiration coverage. - GI consulted, appreciate input. - Follows at [facility] for speech therapy -- resume at discharge. - Possibly getting EGD tomorrow. Pending respiratory status. (5) Sinus bradycardia: HR 40-50's on monitor; also has had sinus pauses, ~3 seconds long, on monitor over last 24 hours. - Pt. reports that he cannot miss beta erick dose due to essential tremor. - Consulted cardiology - No major changes as he does not want to stop propronolol. (6) Parkinsonism: - Continue Sinemet QID and Propanolol as prescribed. (7) Essential tremor: - Continue propanolol as prescribed. (8) BPH with obstruction/lower urinary tract symptoms: - Continue Proscar and Flomax as prescribed. (9) Peptic ulcer disease: - Noted on EGD in May 2017. - PPI daily. 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 - Continue Hydrea 1000 mg qAM. (11) Depression: - Continue Lexapro 15 mg daily and Klonopin 1 mg qhs. (12) Macrocytic anemia: Macrocytic anemia noted on labs. B12 and Folate levels WNL. - Hgb stable at 12.9 today. (13) Elevated alkaline phosphatase level: Chronic elevation in alk phos levels. - Monitor as outpatient. (14) DVT prophylaxis: Heparin 5000 q8hr. Subjective Feels his breathing is at its baseline. He overall feels well. He still has issues with his secretions and feels that they are stuck back there and cannot get back up. Reports no fevers/chills, chest pain, shortness of breath, abdominal pain, nausea, or vomiting. Physical Exam Constitutional: WD/WN, vitals as above Eyes: EOM intact bilaterally; no conjunctival abnormality ENMT: external ear and nose normal, oropharynx normal Neck: trachea midline, no thyromegaly normal visual inspection Respiratory: normal respiratory effort, lungs clear to auscultation no respiratory distress Cardiovascular: RRR, no murmur, no edema Gastrointestinal (Abdomen): Inspection/Auscultation: abdomen normal to inspection; abdomen not distended Musculoskeletal: no cyanosis or clubbing, extremities motor strength 5/5 Skin: no rashes, warm and dry Neurologic: moves all extremities and awake Psychiatric: Orientation: alert, oriented to person and cooperative Results & Data Vital Signs (Past 12 Hours) Vital Signs Temp Pulse Pulse Resp BP Pulse Ox 05/12/19 15:38 88 20 91 05/12/19 15:28 54 L 05/12/19 15:09 36.7 C 58 L 19 93/57 L 91 05/12/19 12:02 36.8 C 53 L 28 H 136/83 90 05/12/19 11:31 52 L 20 90 05/12/19 10:52 48 L 05/12/19 09:01 133/70 05/12/19 08:56 36.4 C L 97 H 26 H 204/47 H 97 05/12/19 07:00 57 L 18 91 05/12/19 04:49 36.5 C 49 L 20 104/65 90 PG Care Time/CCT Total # of Minutes Spent Total Time Spent with Patient: Total time spent is greater than 50% in coordination of care (as documented) at patient's floor/unit and/or counseling patient:
[2019-05-12] MEDS: clonazePAM 1 MG TAB PO SCH (21:03)
[2019-05-12] MEDS: TAMSULOSIN HCL 0.4 MG CAP PO SCH (21:05)
[2019-05-12] MEDS: FINASTERIDE 5 MG TAB PO SCH (21:06)
[2019-05-13] MEDS: ALBUT/IPRATROP 3MG/0.5MG NEB 3 ML VIAL NEB SCH ×6 (03:21→22:38)
[2019-05-13] MEDS: HEPARIN SOD 5,000 UNIT/0.5 ML VIAL SQ SCH ×3 (05:20→20:15)
[2019-05-13] MEDS: FORMOTEROL 20 MCG/2 ML VIAL NEB SCH ×2 (07:06→19:07)
[2019-05-13] MEDS: SODIUM CHLOR 7% 4 ML NEB NEB SCH ×2 (07:06→19:07)
[2019-05-13 07:55] LABS: Hematocrit (blood only) 38.3 % (42-52); Hemoglobin 12.8 g/dL (14.0-18.0); Mean Corpuscular Hemoglobin 40.6 pg (25-34); Mean Corpuscular Hgb Conc 33.4 g/dL (32-36); Mean Corpuscular Volume 121.6 fL (80-100); Mean Platelet Volume 10.3 fL (7.4-10.4); Nucleated RBC # (auto) 0.05 K/uL (0-0); Nucleated RBC % (auto) 0.3 %; Platelet Count 281 K/uL (130-400); RDW Coefficient of Variation 16.2 % (11.5-14.5); RDW Standard Deviation 71.1 fL (36.4-46.3); Red Blood Count 3.15 M/uL (4.7-6.1); White Blood Count 14.73 K/uL (4.8-10.8)
[2019-05-13] MEDS: CHECK SCOPOLAMINE PATCH PLACEMENT SCH ×2 (08:23→17:07)
[2019-05-13] MEDS: methylPREDNISolone 40 MG in SYRINGE 0 ML IV SCH (08:23)
[2019-05-13] MEDS: IPRATROPIUM BROMIDE NASAL SPRAY 0.06% 15ML NAE SCH ×3 (08:23→20:12)
[2019-05-13 08:33] LABS: BUN Creatinine Ratio 37.9 (10-20); Calcium 9.8 mg/dl (8.5-10.1); Creatinine Clr Calc Pharmacy 90.6 ml/min; Est GFR (African American) 106.6; Magnesium 2.2 mg/dl (1.8-2.4); Phosphorus 2.6 mg/dl (2.5-4.9); Potassium 4.2 mmol/L (3.5-5.1)
[2019-05-13] MEDS: AMOXICILLIN/CLAVULANATE 875 MG TAB PO SCH ×2 (09:07→17:07)
[2019-05-13] MEDS: ESCITALOPRAM OXALATE 10 MG TAB PO SCH (09:08)
[2019-05-13] MEDS: CARBIDOPA/LEVODOPA 25/100MG TAB PO SCH ×4 (09:08→20:12)
[2019-05-13] MEDS: guaiFENesin 600 MG TABCR PO SCH ×2 (09:08→20:16)
[2019-05-13] MEDS: PROPRANOLOL HCL 60 MG LA CAP PO SCH (09:09)
[2019-05-13] MEDS: HYDROXYUREA 500 MG CAP PO SCH (09:09)
[2019-05-13] MEDS: PANTOprazole 40 MG TAB PO SCH (09:09)
--- NOTE | 2019-05-13 13:28 | Pulmonology Progress Note ---
Date of Service May 13, 2019 Assessment & Plan (1) Hypoxia: Patient moderately improved overnight. Continue percussion vest Breath sounds improved today ABGs improved since admission Continue with chest percussion, antibiotics, bronchodilators. (2) Hypercapnic respiratory failure: Patient started on BiPAP 05/22. ABGs improved Patient is tolerating mask much better. Was able to wear mask last night from 9 PM until about 6 AM this morning Continue BiPAP at bedtime and as tolerated during the day. Continue aspiration precautions particularly with BiPAP (3) COPD exacerbation: Improvement with hypertonic saline nebs as well as Mucinex -continue Continue flutter valve and percussion vest as tolerated Procalcitonin is negative Currently on Augmentin 1 tab p.o. twice daily Day# 6 * Could discontinue antibiotics after tomorrow Patient on methylprednisolone 40 mg IV twice daily * Discontinue methylprednisolone and change to prednisone and taper off Patient does have a scopolamine patch behind right ear. Maintain SaO2 between 88 and 92% Patient with past tobacco abuse history -quit smoking 4 years ago (4) Chronic pulmonary aspiration: Patient had barium swallow in January and felt as though the barium pill got stuck Continue with strict aspiration precautions Gastroenterology is following and is planning on doing an EGD at 330 today to ru le out stricture Thank you for including us in the care of this patient. We will continue to fol low along with you. Subjective Attending: Dr. Childs Patient seen and examined at the bedside. Son is present. Patient states that he feel much better since starting the percussion vest. Patient continues to have difficulty mobilizing sputum. He has no fever chills. He has no nausea or vomiting. He has no diarrhea. He has no other acute complaints. Review of Systems Review of Systems: All systems reviewed & are unremarkable except as noted in HPI & below Physical Exam Physical Exam: GENERAL : No acute distress EYES: No icterus, gaze conjugate NOSE: No evidence of epistaxis MOUTH: No lesions or candidiasis NECK: Supple LUNGS: Continues with some rhonchi. No bronchospasm. HEART: Regular, rate controlled ABDOMEN: Soft, NT, ND, BS Present EXTREMITIES: No LE edema, pedal pulses intact NEURO: A&OX3. Tremor improved. No new acute findings Results & Data Vital Signs (Past 12 Hours) Vital Signs Temp Pulse Pulse Pulse Resp BP Pulse Ox 05/13/19 11:38 36.8 C 62 18 151/69 H 05/13/19 11:21 51 L 20 91 05/13/19 11:11 91 05/13/19 07:57 36.8 C 60 18 149/76 H 96 05/13/19 07:06 58 L 18 90 05/13/19 03:22 50 L 26 H 92 05/13/19 03:21 50 L 26 H 92 05/13/19 03:15 36.3 C L 48 L 22 146/80 H 92 Laboratory Results 05/13/19 07:11 05/13/19 07:11 Diagnostic Findings XR chest 1V portable 05/12/19 CLINICAL HISTORY: Increased hypoxia dyspnea COMPARISON STUDY: 05/11/2019 FINDINGS: Unchanging to slightly improved poorly defined left basilar parenchymal infiltrative process. Slight improvement in aeration medial aspect of the left retrocardiac region. Lungs otherwise appear clear. Slight unchanged prominence of pulmonary vasculature. IMPRESSION: Unchanged to slightly improved poorly defined parenchymal infiltrate left base. Otherwise unchanged exam. Electronically signed by: Jett Lofton M.D. 05/12/2019 9:28 AM PG Care Time/CCT Total # of Minutes Spent Total Time Spent with Patient: Total time spent is greater than 50% in coordination of care (as documented) at patient's floor/unit and/or counseling patient: 30 minutes
--- NOTE | 2019-05-13 15:14 | Anesthesiology Consultation ---
Date of Service May 13, 2019 Assessment & Plan (1) Encounter for pre-operative examination: Chart Review Chart Review: Acceptable Risk for Surgery and Patient NOT seen in Pre Admission Testing Consults Requested none patient followed by medicine, cardiology, and pulmonology History Surgery Operation Date: 05/13/19 16:30 Proposed Procedures p Esophagogastroduodenoscopy Dr Janet Gonzales Height/Weight Height: 5 ft 7 in Weight: 81.9 kg Allergies Allergy/AdvReac Type Severity Reaction Status Date / Time No Known Allergies Allergy Verified 05/07/19 11:03 Medications Home Medications Medication Instructions Recorded Confirmed Last Taken albuterol sulfate 2 puff INHALATION Q4H PRN 04/07/18 05/07/19 05/06/19 carbidopa-levodopa 2 tabs PO QID 04/07/18 05/07/19 05/07/19 clonazepam 1 mg PO HS 04/07/18 05/07/19 05/06/19 escitalopram oxalate 1.5 tab PO QAM 04/07/18 05/07/19 05/07/19 fluticasone propion-salmeterol 1 puff INHALATION BID 04/07/18 05/07/19 02/12/19 08:30 hydroxyurea 2 cap PO QAM 04/07/18 05/07/19 05/07/19 omeprazole 1 cap PO QAM 04/07/18 05/07/19 05/07/19 ondansetron 4 mg PO BID PRN 04/07/18 05/07/19 02/11/19 16:00 propranolol 1 cap PO QAM 04/07/18 05/07/19 05/07/19 tamsulosin [Flomax] 0.4 mg PO QPM 01/27/19 05/07/19 05/06/19 ipratropium bromide 0.03 % nasal 2 sprays INTNAS TID #30 ml 02/24/19 05/07/19 05/06/19 spray finasteride 5 mg tablet 5 mg PO QPM 90 Days #90 tab 03/04/19 05/07/19 05/06/19 Active Medications Generic Name Dose Route Start Last Admin Trade Name Freq PRN Reason Stop Dose Admin Albuterol 2 puffs 05/07/19 13:40 05/09/19 08:30 Ventolin Hfa INH 06/06/19 13:39 2 puffs Q4H PRN Administration Shortness Of Breath Or Wheezing Albuterol 3 ml 05/10/19 19:00 05/13/19 11:20 Duoneb NEB 06/09/19 18:59 3 ml Q4R CHAPARRITA Administration Amoxicillin/Clavulanate Potassium 1 tab 05/08/19 17:00 05/13/19 09:07 Augmentin 875mg PO 05/15/19 16:59 1 tab BIDM CHAPARRITA Administration Carbidopa/Levodopa 2 tab 05/07/19 14:00 05/13/19 13:55 Sinemet 25/100 Mg PO 06/06/19 13:59 2 tab QID CHAPARRITA Administration Clonazepam 1 mg 05/07/19 21:00 05/12/19 21:03 Klonopin PO 06/06/19 20:59 1 mg HS CHAPARRITA Administration Escitalopram Oxalate 15 mg 05/08/19 09:00 05/13/19 09:08 Lexapro Tab PO 06/07/19 08:59 15 mg QAM CHAPARRITA Administration Finasteride 5 mg 05/07/19 21:00 05/12/19 21:06 Proscar PO 06/06/19 20:59 5 mg QPM CHAPARRITA Administration Formoterol Fumarate 20 mcg 05/08/19 10:00 05/13/19 07:06 Perforomist NEB 06/07/19 09:59 20 mcg BIDR CHAPARRITA Administration Guaifenesin 1,200 mg 05/08/19 21:00 05/13/19 09:08 Mucinex PO 06/07/19 20:59 1,200 mg Q12 CHAPARRITA Administration Heparin Sodium (Porcine) 5,000 units 05/07/19 14:00 05/13/19 13:59 Heparin Sodium (Porcine) SQ 06/06/19 13:59 5,000 units Q8 CHAPARRITA Administration Hydroxyurea 1,000 mg 05/08/19 09:00 05/13/19 09:09 Hydrea PO 06/07/19 08:59 1,000 mg QAM CHAPARRITA Administration Methylprednisolone 40 mg/ 0.64 mls @ 1.5 mls/min 05/10/19 21:00 05/13/19 08:23 Syringe IV 06/09/19 20:59 1.5 mls/min BID CHAPARRITA Administration Ipratropium Kidder 2 sprays 05/07/19 21:00 05/13/19 14:00 Atrovent Nasal [place] 0.06% TIERA 06/06/19 20:59 2 sprays TID CHAPARRITA Administration Miscellaneous 1 ea 05/11/19 08:00 05/13/19 08:23 Check Scopolamine Patch Placement N/A 06/10/19 07:59 1 ea QS CHAPARRITA Administration Pantoprazole Sodium 40 mg 05/08/19 09:00 05/13/19 09:09 Protonix PO 06/07/19 08:59 40 mg QAM CHAPARRITA Administration Propranolol HCl 60 mg 05/08/19 09:00 05/13/19 09:09 Inderal La PO 06/07/19 08:59 60 mg QAM CHAPARRITA Administration Scopolamine 1.5 mg 05/11/19 05:00 05/11/19 05:10 Transderm-Scop TD 06/10/19 04:59 1.5 mg Q3D@0800 CHAPARRITA Administration Sodium Chloride 4 ml 05/10/19 19:00 05/13/19 07:06 Sodium Chlor 7% Neb Solution NEB 06/09/19 18:59 4 ml BIDR CHAPARRITA Administration Tamsulosin HCl 0.4 mg 05/07/19 21:00 05/12/19 21:05 Flomax PO 06/06/19 20:59 0.4 mg QPM CHAPARRITA Administration NPO Date Last Intake of Fluids: 05/13/19 Time Last Intake of Fluids: 13:00 Last Intake of Fluids Comment: SIP OF WATER WITH PILLS Date Last Intake of Solids: 05/12/19 Time Last Intake of Solids: 18:00 Past Medical History Medical History (Updated 05/13/19 @ 15:15 by Darien Huber MD) Choking due to food (regurgitated) COPD (chronic obstructive pulmonary disease) Depression Dysphagia chronic hx of dysphagia x 1 year felt 2/2 parkinson's. Hx aspiration PNA (no current acute pulmonary complaints; "at baseline" at PAT visit 02/03/19). Moderate esophageal dysmotility with no aspiration per barium swallow 01/2019. Follows with pulmonary- monitoring Dysphagia Essential (hemorrhagic) thrombocythemia controlled on hydroxyurea F/U AT [facility] History of diverticulitis History of GI bleed duodenal ulcer (2018)- on PPI History of pancreatitis chronic Hypertension Nocturnal hypoxia on 2L HS Parkinsons DX'D 3 YRS AGO-F/U DR [facility] [place]-dysphagia, fatigue, balance issues, voice modulation issue, tremor in hands. 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 Anaerobic Blood Culture - Final No growth in Anaerobic bottle after 5 days. 05/07/19 10:13 Aerobic Blood Culture - Final Blood No growth in Aerobic bottle after 5 days. Anaerobic Blood Culture - Final No growth in Anaerobic bottle after 5 days.
--- NOTE | 2019-05-13 15:23 | History & Physical Report ---
Date of Service May 13, 2019 History of Present Illness Chief Complaint: dysphagia Primary Care Provider: Chino Abdul For EGD Allergies Allergy/AdvReac Type Severity Reaction Status Date / Time No Known Allergies Allergy Verified 05/07/19 11:03 Home Medications Home Medications Medication Instructions Recorded Confirmed Type albuterol sulfate 2 puff INHALATION Q4H PRN 04/07/18 05/07/19 History carbidopa-levodopa 2 tabs PO QID 04/07/18 05/07/19 History clonazepam 1 mg PO HS 04/07/18 05/07/19 History escitalopram oxalate 1.5 tab PO QAM 04/07/18 05/07/19 History fluticasone propion-salmeterol 1 puff INHALATION BID 04/07/18 05/07/19 History hydroxyurea 2 cap PO QAM 04/07/18 05/07/19 History omeprazole 1 cap PO QAM 04/07/18 05/07/19 History ondansetron 4 mg PO BID PRN 04/07/18 05/07/19 History propranolol 1 cap PO QAM 04/07/18 05/07/19 History tamsulosin [Flomax] 0.4 mg PO QPM 01/27/19 05/07/19 History ipratropium bromide 0.03 % nasal 2 sprays INTNAS TID #30 ml 02/24/19 05/07/19 Rx spray finasteride 5 mg tablet 5 mg PO QPM 90 Days #90 tab 03/04/19 05/07/19 Rx Past Med/Surg History Family History Grandfather Family history of colon cancer Social History (Updated 05/07/19 @ 12:39 by Jose Luis Mendieta MD) Preferred Language: Libyan Communication Ability: Effective Flat Cutter Required: No Beliefs That Will Affect Care: None marital status: Current Living Situation: Spouse Other Information That Helps Us Care for You: No Feels Safe at Home: Yes Safety Concerns: Feels Safe At This Time Smoking Status: Former smoker Do You Dip or Chew Tobacco: No ; Smoking End Date: 2012 ; Second Hand Exposure: No ; Tobacco Cessation Education Requested by Patient: No Hx Alcohol Use: No Hx Substance Use: No Physical Exam Constitutional: + ill appearing Respiratory: + labored breathing Cardiovascular: Rate/Rhythm: regular rate and regular rhythm Gastrointestinal (Abdomen): Percussion/Palpation: abdomen soft Results & Data Vital Signs (Past 12 Hours) Vital Signs Temp Pulse Resp BP Pulse Ox 05/13/19 14:49 36.4 C L 53 L 28 H 156/81 H 94 05/13/19 11:38 36.8 C 62 18 151/69 H 05/13/19 11:21 51 L 20 91 05/13/19 11:11 91 05/13/19 07:57 36.8 C 60 18 149/76 H 96 05/13/19 07:06 58 L 18 90 Code Status & VTE Plan VTE Prophylaxis Plan VTE Prophylaxis will be ordered: Yes
[2019-05-13] MEDS ORDERED: LIDOCAINE HCL 2% 2 ML VIAL/AMP(20MG/ML) INFIL ONE (15:24)
[2019-05-13] MEDS ORDERED: PROPOFOL IV EMULSION 10 MG/ML 20 ML VIAL IV ONE (15:24)
[2019-05-13] MEDS ORDERED: KETAMINE HCL INJ 50 MG/ML 10 ML VIAL ONE (15:25)
[2019-05-13] MEDS ORDERED: SODIUM CHLORIDE 0.9% 1000ML 1,000 ML IV SCH (15:30)
--- NOTE | 2019-05-13 15:43 | Hospitalist Progress Note ---
Date of Service May 13, 2019 Assessment & Plan (1) Acute hypoxemic respiratory failure: Acute on chronic resp failure (previously required 2L via NC at night) likely related to COPD exacerbation vs. possible aspiration bronchitis. - Will need Trelegy machine at discharge -- case management following. Pt. also requested nebulizer machine at home. - I believe he is aspirating chronically from esophageal issues from Parkinson's. - Discussed with Brandon Chavarria and Dr. Gonzales on 05/13 - Will get EGD today as his pulmonary status appears about as optimized as possible. (2) COPD exacerbation: CXR was negative for opacity. Procalcitonin was negative. - Duonebs q6hrWA, Mucinex 1200 mg BID, sodium chloride nebs BID, Pulmicort and Performist BID. - Flutter valve as tolerated. - Augmentin 875 mg BID. - Steroids started by Dr. Nolan on 05/10; stopped on 05/13 for no real indications. - He continues to have post-prandial coughing and regurgitation. Concern for esophageal stricture, though uncertain. EGD as above today. (3) Hypertension: BP very variable at 95/65 on 05/12; now 155/80 today. - Continue home Propanolol. Patient does not want to stop this. - Holding ACEi started by prior hospitalist - Unsure if we should restart it at this point given his high variability. Likely has some autonomic dysfunction from his Parkinson's. (4) Choking due to food (regurgitated): - S/p barium swallow at [facility] in January 2019. Also evaluated by speech therapy at [facility] on 03/19/19 (see GI note for details). - Continue regular diet per speech therapy recs. - On Augmentin as noted above for aspiration coverage. - GI consulted, appreciate input. - Follows at [facility] for speech therapy -- resume at discharge. - EGD today. (5) Sinus bradycardia: HR 40-50's on monitor; also has had sinus pauses, ~3 seconds long, on monitor over last 24 hours. - Pt. reports that he cannot miss beta erick dose due to essential tremor. - Consulted cardiology - No major changes as he does not want to stop propronolol. (6) Parkinsonism: - Continue Sinemet QID and propanolol as prescribed. (7) Essential tremor: - Continue propanolol as prescribed. (8) BPH with obstruction/lower urinary tract symptoms: - Continue Proscar and Flomax as prescribed. (9) Peptic ulcer disease: - Noted on EGD in May 2017. - PPI daily. (10) Essential (hemorrhagic) thrombocythemia: - Follows with choke setter. - Continue Hydrea 1000 mg qAM. (11) Depression: - Continue Lexapro 15 mg daily and Klonopin 1 mg qhs. (12) Macrocytic anemia: Macrocytic anemia noted on labs. B12 and Folate levels WNL. - Hgb stable at 12.8 on 05/13. (13) Elevated alkaline phosphatase level: Chronic elevation in alk phos levels. - Monitor as outpatient. (14) DVT prophylaxis: Heparin 5000 q8hr. Subjective Reports he feels better than he has in a long time. Still having some coughing, but better than yesterday. Appears stronger with his coughing as well. Physical Exam Constitutional: WD/WN, vitals as above Eyes: EOM intact bilaterally; no conjunctival abnormality ENMT: external ear and nose normal, oropharynx normal Neck: trachea midline, no thyromegaly normal visual inspection Respiratory: normal respiratory effort, lungs clear to auscultation no respiratory distress Cardiovascular: RRR, no murmur, no edema Gastrointestinal (Abdomen): Inspection/Auscultation: abdomen normal to inspection; abdomen not distended Musculoskeletal: no cyanosis or clubbing, extremities motor strength 5/5 Skin: no rashes, warm and dry Neurologic: moves all extremities and awake Psychiatric: Orientation: alert, oriented to person and cooperative Results & Data Vital Signs (Past 12 Hours) Vital Signs Temp Pulse Resp BP Pulse Ox 05/13/19 14:49 36.4 C L 53 L 28 H 156/81 H 94 05/13/19 11:38 36.8 C 62 18 151/69 H 05/13/19 11:21 51 L 20 91 05/13/19 11:11 91 05/13/19 07:57 36.8 C 60 18 149/76 H 96 05/13/19 07:06 58 L 18 90 PG Care Time/CCT Total # of Minutes Spent Total Time Spent with Patient: Total time spent is greater than 50% in coordination of care (as documented) at patient's floor/unit and/or counseling patient:
--- NOTE | 2019-05-13 15:51 | GI REPORT ---
Patient Name: Papito Schwarz Procedure Date: 05/13/2019 3:22 PM Date of : 1950 Admit Type: Inpatient Age: 68 Gender: Male Attending MD: Abdirizak Gonzales MD Procedure: Upper GI endoscopy Providers: Abdirizak Gonzales MD Referring MD: Raymundo Gaffney Md Indications: Dysphagia, Abnormal cine-esophagram Medicines: Propofol total dose 20 mg IV, Ketamine 30 mg IV, Lidocaine 80 mg IV Complications: No immediate complications. Estimated Blood Loss: Estimated blood loss: none. Procedure: Pre-Anesthesia Assessment: - Prior to the procedure, a History and Physical was performed, and patient medications, allergies and sensitivities were reviewed. The patient's tolerance of previous anesthesia was reviewed. - The risks and benefits of the procedure and the sedation options and risks were discussed with the patient. All questions were answered and informed consent was obtained. After obtaining informed consent, the endoscope was passed under direct vision. Throughout the procedure, the patient's blood pressure, pulse, and oxygen saturations were monitored continuously. The Endoscope was introduced through the mouth, and advanced to the second part of duodenum. The upper GI endoscopy was accomplished without difficulty. The patient tolerated the procedure well. Findings: The Z-line was regular and was found 43 cm from the incisors. No stricture. Bile in the stomach. The examined duodenum was normal. A scar from prior gastrostomy was found in the gastric body. [Description]. Impression: - Z-line regular, 43 cm from the incisors. - Normal examined duodenum. - Scar in the gastric body. - No specimens collected. Recommendation: - [facility]. Abdirizak Gonzales M.D. Abdirizak Gonzales MD 05/13/2019 3:50:38 PM This report has been signed electronically. Note Initiated On: 05/13/2019 3:22 PM Number of Addenda: 0 I attest to the content of the Intraoperative Record and orders documented therein, exceptions below {[id number]}
--- NOTE | 2019-05-13 16:00 | Anesthesiology Progress Note ---
Date of Service May 13, 2019 Anesthesia Post Procedure Vital Signs Vital Signs: Temp Pulse Pulse Pulse Resp BP Pulse Ox 05/13/19 15:57 55 L 24 130/83 93 05/13/19 15:48 58 L 22 124/62 93 05/13/19 14:49 36.4 C L 53 L 28 H 156/81 H 94 05/13/19 11:38 36.8 C 62 18 151/69 H 05/13/19 11:21 51 L 20 91 05/13/19 11:11 91 05/13/19 07:57 36.8 C 60 18 149/76 H 96 05/13/19 07:06 58 L 18 90 05/13/19 03:22 50 L 26 H 92 05/13/19 03:21 50 L 26 H 92 05/13/19 03:15 36.3 C L 48 L 22 146/80 H 92 05/12/19 23:27 36.3 C L 53 L 22 138/75 92 05/12/19 23:14 53 L 30 H 93 05/12/19 23:08 52 L 05/12/19 22:16 68 20 93 05/12/19 19:56 61 20 91 05/12/19 19:09 36.4 C L 62 24 120/63 91 Pain Intensity Generalized: Pain Intensity: 2 Transfer of Care Handoff Completed per policy Notes Mental Status: alert / awake / arousable Patient Amnestic to Procedure: Yes Nausea / Vomiting: adequately controlled Pain: adequately controlled Airway Patency, RR, SpO2: stable & adequate BP & HR: stable & adequate Hydration State: stable & adequate Anesthetic Complications: no major complications apparent and Pt Satisfied with anesthetic care
--- NOTE | 2019-05-13 17:49 | Progress Note ---
DATE: 05/13/2019 The patient underwent an EGD today because of his recurrent aspiration from Parkinson disease and a previous video swallow that showed a potential stricture in the distal esophagus when a barium tablet hung up. His surfacing technician felt that he was stable enough to undergo the procedure today after postponing it yesterday. The patient did tolerate the procedure well and did not really have any significant loss of oxygen saturation. In his esophagus, there was no stricture. In the distal esophagus, the Z-line was normal at 43 cm. His vocal cords were visualized and appeared normal as well. Stomach showed a dimple from his previous gastrostomy tube and there was some bile in the stomach that was removed. There were no other mucosal abnormalities. The duodenum was normal. IMPRESSION: The patient does not have an esophageal stricture that is amenable to dilation. I think all of his difficulty swallowing and aspiration problems are coming from his oropharyngeal dysphagia from his Parkinson disease. I did talk to the patient and his son postoperatively and informed them of these findings. At this point, he is not thinking about pursuing a repeat gastrostomy tube as he has had a lot of problems with the other one in the past, in fact I think he has had 2 in the past. He has been trained by the speech therapist on how to try to swallow better to reduce the risk for aspiration. I also told him that placing a gastrostomy tube would provide him with all the nutrition needs, but would not eliminate completely the risk for aspiration going forward. The patient for now will be trying to manage without a gastrostomy tube, but if he changes his mind, we can revisit this issue at a later date.
[2019-05-13] MEDS: ALBUTEROL HFA 8 GM INHALER INH PRN (20:11)
[2019-05-13] MEDS: clonazePAM 1 MG TAB PO SCH (20:15)
[2019-05-13] MEDS: FINASTERIDE 5 MG TAB PO SCH (20:15)
[2019-05-13] MEDS: TAMSULOSIN HCL 0.4 MG CAP PO SCH (20:16)
[2019-05-14] MEDS: CHECK SCOPOLAMINE PATCH PLACEMENT SCH ×3 (00:15→17:00)
[2019-05-14] MEDS: ALBUT/IPRATROP 3MG/0.5MG NEB 3 ML VIAL NEB SCH ×6 (04:06→22:57)
[2019-05-14] MEDS: HEPARIN SOD 5,000 UNIT/0.5 ML VIAL SQ SCH ×3 (05:02→21:07)
[2019-05-14] MEDS: SODIUM CHLOR 7% 4 ML NEB NEB SCH ×2 (07:01→19:09)
[2019-05-14] MEDS: FORMOTEROL 20 MCG/2 ML VIAL NEB SCH ×2 (07:01→19:11)
[2019-05-14 07:07] LABS: Hematocrit (blood only) 35.7 % (42-52); Hemoglobin 12.1 g/dL (14.0-18.0); Mean Corpuscular Hemoglobin 40.9 pg (25-34); Mean Corpuscular Hgb Conc 33.9 g/dL (32-36); Mean Corpuscular Volume 120.6 fL (80-100); Mean Platelet Volume 10.1 fL (7.4-10.4); Nucleated RBC # (auto) 0.05 K/uL (0-0); Nucleated RBC % (auto) 0.4 %; Platelet Count 276 K/uL (130-400); Red Blood Count 2.96 M/uL (4.7-6.1); White Blood Count 11.53 K/uL (4.8-10.8)
[2019-05-14 07:44] LABS: BUN Creatinine Ratio 38.8 (10-20); Calcium 9.2 mg/dl (8.5-10.1); Creatinine Clr Calc Pharmacy 98.3 ml/min; Est GFR (Non-African American) 94.9; Potassium 3.9 mmol/L (3.5-5.1)
[2019-05-14] MEDS: guaiFENesin 600 MG TABCR PO SCH ×2 (07:45→20:57)
[2019-05-14] MEDS: HYDROXYUREA 500 MG CAP PO SCH (07:46)
[2019-05-14] MEDS: PANTOprazole 40 MG TAB PO SCH (07:46)
[2019-05-14] MEDS: ESCITALOPRAM OXALATE 10 MG TAB PO SCH (07:46)
[2019-05-14] MEDS: SCOPOLAMINE 1.5 MG TDSY TD SCH (07:46)
[2019-05-14] MEDS: AMOXICILLIN/CLAVULANATE 875 MG TAB PO SCH ×2 (07:48→17:00)
[2019-05-14] MEDS: CARBIDOPA/LEVODOPA 25/100MG TAB PO SCH ×4 (07:48→20:57)
[2019-05-14] MEDS: PROPRANOLOL HCL 60 MG LA CAP PO SCH (07:49)
[2019-05-14] MEDS: IPRATROPIUM BROMIDE NASAL SPRAY 0.06% 15ML NAE SCH ×3 (07:49→21:07)
--- NOTE | 2019-05-14 09:43 | Pulmonology Progress Note ---
Date of Service May 14, 2019 Assessment & Plan (1) Hypoxia: Patient continues to improve moderately. Significant improvement since starting the pneumatic percussion vest. Appears back to baseline with supplemental O2 this morning ABGs improved since admission as compared to VBG's. -No hypercapnia with overnight BiPAP Continue with chest percussion, antibiotics, bronchodilators Continue BiPAP at bedtime 05/22 (2) Hypercapnic respiratory failure: Hypercapnia corrected on BiPAP 05/22. Patient with pulmonary function testing 09/22/2017 with an FEV1 of 50% and an RV of 128% of predicted Polysomnography exam completed 08/11/2017 * Patient did NOT demonstrate any evidence of obstructive sleep apnea Patient is tolerating mask much better. Continue BiPAP at bedtime and as tolerated during the day. Continue aspiration precautions particularly with BiPAP Patient would benefit from trilogy noninvasive ventilation on discharge * Request submitted to insurance for authorization Continue as above (3) COPD exacerbation: Improvement with hypertonic saline nebs as well as Mucinex -continue Continue flutter valve and percussion vest as tolerated Procalcitonin is negative Currently on Augmentin 1 tab p.o. twice daily Day# 7 * Could discontinue antibiotics today Patient on methylprednisolone 40 mg IV twice daily * Discontinue methylprednisolone and change to prednisone and taper off Continue scopolamine patch behind right ear. Maintain SaO2 between 88 and 92% Patient with past tobacco abuse history -quit smoking 4 years ago (4) Chronic pulmonary aspiration: Patient had barium swallow in January and felt as though the barium pill got stuck Continue with strict aspiration precautions EGD 05/13/2019 did not show evidence of stricture or anatomical abnormality If patient continues to eat and drink, he will continue to aspirate Discussed risk versus benefit of chronic feeding tubes and indicated this would not eliminate aspiration although it may reduce risk of aspiration. Thank you for including us in the care of this patient. We will sign off at this time. I did speak with [employer] representatives today and they are confident that insurance approvals will come through tomorrow for trilogy noninvasive ventilator and that they will continue to work on approval for a pneumatic percussion vest. Anticipate discharge home once noninvasive ventilator is provided. Subjective Attending: Dr. Childs Patient seen and examined at bedside. He is doing much much better today. He has had significant improvement since starting the pneumatic percussion vest. Auscultation shows improvement and he is back close to baseline with supplemental oxygen via nasal cannula. He has been weaned down to nasal cannula and was comfortable. He tolerated the BiPAP overnight. Patient continues to aspirate intermittently. He was eating scrambled eggs for breakfast with no aspiration but reports that sometimes he has aspiration with thin liquids. The patient denies any fever, chills, sweats, rigors. He has no night sweats. He does continue with cough and has difficulty clearing secretions. The patient has no further acute complaints. Review of Systems Review of Systems: All systems reviewed & are unremarkable except as noted in HPI & below Physical Exam Physical Exam: GENERAL : No acute distress. Sitting in bedside chair talking with a friend. EYES: No icterus, gaze conjugate NOSE: No evidence of epistaxis MOUTH: No lesions or candidiasis NECK: Supple LUNGS: Still some rales at the bases. But no significant bronchospasm or rhonchi today. HEART: Regular, rate controlled ABDOMEN: Soft, NT, ND, BS Present EXTREMITIES: No LE edema, pedal pulses intact NEURO: A&OX3. Continues with tremor of right hand. Otherwise appears stable Results & Data Vital Signs (Past 12 Hours) Vital Signs Temp Pulse Pulse Resp BP Pulse Ox 05/14/19 07:46 36.4 C L 54 L 20 139/71 92 05/14/19 07:06 50 L 22 90 05/14/19 04:08 49 L 22 93 05/14/19 04:07 49 L 22 93 05/14/19 04:04 36.5 C 46 L 21 146/76 H 93 05/13/19 23:49 52 L 05/13/19 23:38 36.6 C 50 L 24 132/69 91 05/13/19 22:40 51 L 31 H 90 05/13/19 22:38 53 L 31 H 91 Laboratory Results 05/14/19 06:37 05/14/19 06:37 Diagnostic Findings XR chest 1V portable CLINICAL HISTORY: Increased hypoxia dyspnea COMPARISON STUDY: 05/11/2019 FINDINGS: Unchanging to slightly improved poorly defined left basilar parenchymal infiltrative process. Slight improvement in aeration medial aspect of the left retrocardiac region. Lungs otherwise appear clear. Slight unchanged prominence of pulmonary vasculature. IMPRESSION: Unchanged to slightly improved poorly defined parenchymal infiltrate left base. Otherwise unchanged exam. Electronically signed by: Jett Lofton M.D. 05/12/2019 9:28 AM PG Care Time/CCT Total # of Minutes Spent Total Time Spent with Patient: Total time spent is greater than 50% in coordination of care (as documented) at patient's floor/unit and/or counseling patient: 40 minutes including discussion with outside DME to coordinate equip ment and supplies on discharge
--- NOTE | 2019-05-14 11:38 | Hospitalist Progress Note ---
Date of Service May 14, 2019 Assessment & Plan (1) Acute hypoxemic respiratory failure: Acute on chronic resp failure (previously required 2L via NC at night) likely related to COPD exacerbation vs. possible aspiration bronchitis. - Will need Trelegy machine at discharge -- case management following. Pt. also requested nebulizer machine at home. - I believe he is aspirating chronically from esophageal issues from Parkinson's. - EGD on 05/13 showed no strictures. This is related to his Parkinson's disease. He prefers at this time to take conservative measures as he has had bad experiences with both G-tubes and TPN. (2) COPD exacerbation: CXR was negative for opacity. Procalcitonin was negative. - Duonebs q6hrWA, Mucinex 1200 mg BID, sodium chloride nebs BID, Pulmicort and Performist BID. - Flutter valve as tolerated. Now with pulmonary vest ordered as well. - Augmentin 875 mg BID. - Steroids started by Dr. Nolan on 05/10; stopped on 05/13 for no real indications. - He continues to have post-prandial coughing and regurgitation. (3) Hypertension: BP very variable at 95/65 on 05/12; now 140/80 to 155/80 today. - Continue home propanolol. Patient does not want to stop this. - Holding ACEi started by prior hospitalist - Unsure if we should restart it at this point given his high variability. Likely has some autonomic dysfunction from his Parkinson's. (4) Choking due to food (regurgitated): - S/p barium swallow at [facility] in January 2019. Also evaluated by speech therapy at [facility] on 03/19/19 (see GI note for details). - Continue regular diet per speech therapy recs. - On Augmentin as noted above for aspiration coverage. - GI consulted, appreciate input. - Follows at [facility] for speech therapy -- resume at discharge. - EGD on 05/13 was normal apart from dimple from prior G-tube. (5) Sinus bradycardia: HR 40-50's on monitor; also has had sinus pauses, ~3 seconds long, on monitor over last 24 hours. - Pt. reports that he cannot miss beta erick dose due to essential tremor. - Consulted cardiology - No major changes as he does not want to stop propronolol. (6) Parkinsonism: Sees [place] neurology. Has a deep brain stimulator. - Continue Sinemet QID and propanolol as prescribed. (7) Essential tremor: - Continue propanolol as prescribed. (8) BPH with obstruction/lower urinary tract symptoms: - Continue Proscar and Flomax as prescribed. (9) Peptic ulcer disease: - Noted on EGD in May 2017. - PPI daily. 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 - Continue Hydrea 1000 mg qAM. (11) Depression: - Continue Lexapro 15 mg daily and Klonopin 1 mg qhs. (12) Macrocytic anemia: Macrocytic anemia noted on labs. B12 and Folate levels WNL. - Hgb stable at 12.8 on 05/13. (13) Elevated alkaline phosphatase level: Chronic elevation in alk phos levels. - Monitor as outpatient. (14) DVT prophylaxis: Heparin 5000 q8hr. Subjective Doing well today. Had an episode of choking with some water this morning, but he was able to clear it acceptably well and is doing fine now. Up in a chair. Ready to go home. Reports no fevers/chills, chest pain, shortness of breath, abdominal pain, nausea, or vomiting. Physical Exam Constitutional: WD/WN, vitals as above Eyes: EOM intact bilaterally; no conjunctival abnormality ENMT: external ear and nose normal, oropharynx normal Neck: trachea midline, no thyromegaly normal visual inspection Respiratory: no respiratory distress Auscultation: + crackles (Bases bilaterally) Cardiovascular: RRR, no murmur, no edema Gastrointestinal (Abdomen): Inspection/Auscultation: abdomen normal to inspection; abdomen not distended Musculoskeletal: no cyanosis or clubbing, extremities motor strength 5/5 Skin: no rashes, warm and dry Neurologic: moves all extremities and awake Psychiatric: Orientation: alert, oriented to person and cooperative Results & Data Vital Signs (Past 12 Hours) Vital Signs Temp Pulse Pulse Resp BP Pulse Ox 05/14/19 11:33 36.2 C L 51 L 22 137/78 91 05/14/19 11:04 50 L 18 90 05/14/19 07:46 36.4 C L 54 L 20 139/71 92 05/14/19 07:06 50 L 22 90 05/14/19 04:08 49 L 22 93 05/14/19 04:07 49 L 22 93 05/14/19 04:04 36.5 C 46 L 21 146/76 H 93 05/13/19 23:49 52 L 05/13/19 23:38 36.6 C 50 L 24 132/69 91 PG Care Time/CCT Total # of Minutes Spent Total Time Spent with Patient: Total time spent is greater than 50% in coordination of care (as documented) at patient's floor/unit and/or counseling patient:
[2019-05-14] MEDS: ALBUTEROL HFA 8 GM INHALER INH PRN ×2 (12:52→20:55)
[2019-05-14] MEDS: clonazePAM 1 MG TAB PO SCH (20:54)
[2019-05-14] MEDS: TAMSULOSIN HCL 0.4 MG CAP PO SCH (21:07)
[2019-05-14] MEDS: FINASTERIDE 5 MG TAB PO SCH (21:07)
[2019-05-15] MEDS: CHECK SCOPOLAMINE PATCH PLACEMENT SCH ×2 (00:10→07:59)
[2019-05-15] MEDS: ALBUT/IPRATROP 3MG/0.5MG NEB 3 ML VIAL NEB SCH ×3 (03:04→11:17)
[2019-05-15] MEDS: HEPARIN SOD 5,000 UNIT/0.5 ML VIAL SQ SCH (05:53)
[2019-05-15] MEDS: FORMOTEROL 20 MCG/2 ML VIAL NEB SCH (07:16)
[2019-05-15] MEDS: SODIUM CHLOR 7% 4 ML NEB NEB SCH (07:16)
[2019-05-15] MEDS: CARBIDOPA/LEVODOPA 25/100MG TAB PO SCH (07:57)
[2019-05-15] MEDS: guaiFENesin 600 MG TABCR PO SCH (07:57)
[2019-05-15] MEDS: HYDROXYUREA 500 MG CAP PO SCH (07:58)
[2019-05-15] MEDS: PROPRANOLOL HCL 60 MG LA CAP PO SCH (07:58)
[2019-05-15] MEDS: PANTOprazole 40 MG TAB PO SCH (07:58)
[2019-05-15] MEDS: ESCITALOPRAM OXALATE 10 MG TAB PO SCH (07:58)
[2019-05-15] MEDS: AMOXICILLIN/CLAVULANATE 875 MG TAB PO SCH (07:58)
[2019-05-15] MEDS: IPRATROPIUM BROMIDE NASAL SPRAY 0.06% 15ML NAE SCH (07:59)
--- NOTE | 2019-05-15 13:10 | Palliative Care Consultation ---
Date of Consultation May 15, 2019 Assessment & Plan (1) Goals of care, counseling/discussion: Patient is a 68-year-old male with a past medical history significant for Parkinson's-diagnosed in 2015, status post deep brain stimulator in August of this year, dysphasia, hypertension, COPD, and nocturnal hypoxia who presented to the emergency room on 05/07 with increasing shortness of breath. Patient evaluated by pulmonology-respiratory status is improving, patient did require BiPAP for hypercapnia. Patient with difficulty mobilizing secretions due to Parkinson's and generalized weakness, contributing is his scopolamine patch to manage his oral secretions. Patient's respiratory improved with aggressive pulmonary toilet including percussion vest and hypertonic nebs. Patient is plan for discharge home today with continuous O2 and trilogy nightly. Patient has a history of smoking-quit in 2014. Patient has asymptomatic bradycardia partially due to propranolol for his essential tremor. -Patient and his have been for 47 years, they have 40-year-old son who lives in [place] -patient named his is his medical decision-maker -Patient has had 3 prior F-onodi-rhck not wish one at this time. Discussed with patient that he needs to think about advanced care directives as his condition continues to worsen-including future G-tubes, which he was unsure of, as well as planning for additional care. -Discussed CODE STATUS-patient does not wish to have chest compressions, shock, or intubation-we will change his CODE STATUS to DNR. POLST form completed- patient requested his signed it. Copy placed in the medical records, original given to patient's . -Parkinson's disease-diagnosed in 2015, status post deep brain stimulator this past August, continue Sinemet. -Essential tremor-improved with propranolol-patient with asymptomatic bradycardia-does not want to discontinue-has done so in the past with worsening tremor. -Dysphasia-with aspiration-patient receives outpatient [employer], is currently not on thickened liquids, has had 3 NG tube in the past-does not want a G-tube at this time. Patient able to mobilize secretions with percussion vest and hypertonic saline nebs -Nocturnal hypoxia-patient on O2 nightly and as needed prior to admission, did r equire BiPAP due to hypercapnia. Patient recommended for home trilogy -PPS is 40%, patient is dependent in 5 out of 6 ADLs. (2) Parkinsonism: (3) Chronic pulmonary aspiration: (4) Hypercapnic respiratory failure: (5) Dysphagia: (6) Essential tremor: History of Present Illness Reason for Consultation: Address CODE STATUS and goals of care Requesting Physician: Dr. Raymundo Gaffney Attending Physician: Raymundo Gaffney MD History of Present Illness Patient is a 68-year-old male with a past medical history significant for Parkinson's-diagnosed in 2015, status post deep brain stimulator in August of this year, dysphasia, hypertension, COPD, and nocturnal hypoxia who presented to the emergency room on 05/07 with increasing shortness of breath. Patient evaluated by pulmonology-respiratory status is improving, patient did require BiPAP for hypercapnia. Patient with difficulty mobilizing secretions due to Parkinson's and generalized weakness, contributing is his scopolamine patch to manage his oral secretions. Patient's respiratory improved with aggressive pulmonary toilet including percussion vest and hypertonic nebs. Patient is plan for discharge home today with continuous O2 and trilogy nightly. Patient has a history of smoking-quit in 2014. Patient has asymptomatic bradycardia partially due to propranolol for his essential tremor. -Patient and his have been for 47 years, they have 40-year-old son who lives in [place] -patient named his is his medical decision-maker -Patient has had 3 prior A-[id number]-qjcj not wish one at this time. Discussed with patient that he needs to think about advanced care directives as his condition continues to worsen-including future G-tubes, which he was unsure of, as well as planning for additional care. -Discussed CODE STATUS-patient does not wish to have chest compressions, shock, or intubation-we will change his CODE STATUS to DNR. POLST form completed- patient requested his signed it. Copy placed in the medical records, original given to patient's . Allergies Allergy/AdvReac Type Severity Reaction Status Date / Time No Known Allergies Allergy Verified 05/07/19 11:03 Home Medications Home Medications Medication Instructions Recorded Confirmed Type albuterol sulfate 2 puff INHALATION Q4H PRN 04/07/18 05/07/19 History carbidopa-levodopa 2 tabs PO QID 04/07/18 05/07/19 History clonazepam 1 mg PO HS 04/07/18 05/07/19 History escitalopram oxalate 1.5 tab PO QAM 04/07/18 05/07/19 History fluticasone propion-salmeterol 1 puff INHALATION BID 04/07/18 05/07/19 History hydroxyurea 2 cap PO QAM 04/07/18 05/07/19 History omeprazole 1 cap PO QAM 04/07/18 05/07/19 History ondansetron 4 mg PO BID PRN 04/07/18 05/07/19 History propranolol 1 cap PO QAM 04/07/18 05/07/19 History tamsulosin [Flomax] 0.4 mg PO QPM 01/27/19 05/07/19 History ipratropium bromide 0.03 % nasal 2 sprays INTNAS TID #30 ml 02/24/19 05/07/19 Rx spray finasteride 5 mg tablet 5 mg PO QPM 90 Days #90 tab 03/04/19 05/07/19 Rx formoterol fumarate [Perforomist] 20 mcg NEB BIDR #120 ml 05/15/19 Rx ipratropium-albuterol 3 ml NEB Q4R #180 ml 05/15/19 Rx scopolamine base [Transderm-Scop] 1.5 mg TRANSDERMAL Q3D@0800 #30 ea 05/15/19 Rx sodium chloride 4 ml NEB BIDR PRN #240 ml 05/15/19 Rx Patient History Medical History Choking due to food (regurgitated) COPD (chronic obstructive pulmonary disease) Depression Dysphagia chronic hx of dysphagia x 1 year felt 2/2 parkinson's. Hx aspiration PNA (no current acute pulmonary complaints; "at baseline" at PAT visit 02/03/19). Moderate esophageal dysmotility with no aspiration per barium swallow 01/2019. Follows with pulmonary- monitoring Dysphagia Essential (hemorrhagic) thrombocythemia controlled on hydroxyurea F/U AT [facility] History of diverticulitis History of GI bleed duodenal ulcer (2017)- on PPI History of pancreatitis chronic Hypertension Nocturnal hypoxia on 2L HS Parkinsons DX'D 3 YRS AGO-F/U [facility]dysphagia, fatigue, balance issues, voice modulation issue, tremor in hands. 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 OR/surgeon made aware Family History Grandfather Family history of colon cancer Social History (Updated 05/07/19 @ 12:39 by Jose Luis Mendieta MD) Preferred Language: Kyrgyz Communication Ability: Effective Wet Process Technician Required: No Beliefs That Will Affect Care: None marital status: Current Living Situation: Spouse Feels Safe at Home: Yes Smoking Status: Former smoker Second Hand Exposure: No ; Hx Alcohol Use: No Hx Substance Use: No Review of Systems Review of Systems: Patient denies pain, fever, chills, chest pain, increased shortness of breath, or abdominal pain. Positive for excess oral secretions, cough after eating, and lower extremity edema Physical Exam Physical Exam: PE: Patient awake and alert, no acute distress, respiratory rate 28-30, on O2 at 5 L nasal cannula HEENT: EOMI, hearing within normal limits Neck: Limited range of motion, stiffness due to Parkinson's Respiratory: Coarse breath sounds bilaterally, good air movement CV: Regular rate-bradycardic at times, asymptomatic. Trace lower extremity edema-improved per patient report Abdomen: Not distended Extremities: Generalized weakness, unsteady gait due to Parkinson's Neuro: Alert and oriented x4. Results & Data Vital Signs (Past 12 Hours) Vital Signs Temp Pulse Pulse Pulse Pulse Pulse Pulse 05/15/19 12:38 98.4 F 64 05/15/19 12:05 98.4 F 05/15/19 11:20 64 05/15/19 09:24 76 70 69 87 05/15/19 08:10 98.2 F 05/15/19 08:00 62 05/15/19 07:20 65 05/15/19 03:19 98.6 F 05/15/19 03:05 62 05/15/19 03:04 Pulse Pulse Pulse Pulse Resp Resp Resp 05/15/19 12:38 67 63 33 H 05/15/19 12:05 67 33 H 05/15/19 11:20 34 H 05/15/19 09:24 82 70 32 H 40 H 05/15/19 08:10 70 36 H 05/15/19 08:00 05/15/19 07:20 32 H 05/15/19 03:19 63 40 H 05/15/19 03:05 24 05/15/19 03:04 62 24 Resp Resp Resp Resp BP Pulse Ox Pulse Ox 05/15/19 12:38 111/69 90 05/15/19 12:05 111/69 90 05/15/19 11:20 89 L 05/15/19 09:24 40 H 40 H 40 H 32 H 87 L 05/15/19 08:10 106/69 91 05/15/19 08:00 05/15/19 07:20 89 L 05/15/19 03:19 112/72 90 05/15/19 03:05 90 05/15/19 03:04 90 Pulse Ox Pulse Ox Pulse Ox Pulse Ox Pulse Ox 05/15/19 12:38 05/15/19 12:05 05/15/19 11:20 05/15/19 09:24 87 L 90 90 90 85 L 05/15/19 08:10 05/15/19 08:00 05/15/19 07:20 05/15/19 03:19 05/15/19 03:05 05/15/19 03:04 PG Care Time/CCT Total # of Minutes Spent Total Time Spent with Patient: Total time spent is greater than 50% in coordination of care (as documented) at patient's floor/unit and/or counseling patient: Time Spent Attending Total time spent 70 minutes with greater than 50% of the time at bedside discussing CODE STATUS, goals of care and advanced care planning.
--- NOTE | 2019-05-15 14:43 | Discharge Summary ---
Date of Service May 15, 2019 Admission HPI Per Admitting Provider For EGD Principal Diagnosis Chronic aspiration from his Parkinson's disease Discharge Exam Constitutional WD/WN, vitals as above Eyes EOM intact bilaterally; no conjunctival abnormality ENMT external ear and nose normal, oropharynx normal Neck trachea midline, no thyromegaly normal visual inspection Respiratory normal respiratory effort, lungs clear to auscultation no respiratory distress Auscultation: + crackles (Bases bilaterally) Cardiovascular RRR, no murmur, no edema Gastrointestinal (Abdomen) Inspection/Auscultation: abdomen normal to inspection; abdomen not distended Musculoskeletal no cyanosis or clubbing, extremities motor strength 5/5 Skin no rashes, warm and dry Neurologic moves all extremities and awake Psychiatric Orientation: alert, oriented to person and cooperative Discharge Data Allergies Allergy/AdvReac Type Severity Reaction Status Date / Time No Known Allergies Allergy Verified 05/07/19 11:03 Consultations 05/07/19 12:07 ED Decision to Admit Stat 05/07/19 13:40 Consult Gastroenterology Routine 05/08/19 08:23 Consult Pulmonology Routine 05/10/19 11:40 Consult Cardiology Routine 05/14/19 15:12 Consult Palliative Care Routine Procedures Performed Operation Date: 05/13/19 16:30 Actual Procedures p Esophagogastroduodenoscopy(Not Applicable) - [facility] Course (1) Acute hypoxemic respiratory failure: Acute on chronic resp failure (previously required 2L via NC at night) likely related to COPD exacerbation vs. possible aspiration bronchitis. - Will need Trelegy machine at discharge -- case management following. Pt. also requested nebulizer machine at home. - I believe he is aspirating chronically from esophageal issues from Parkinson's. - EGD on 05/13 showed no strictures. This is related to his Parkinson's disease. He prefers at this time to take conservative measures as he has had bad experiences with both G-tubes and TPN. - Discharged on extensive pulmonary toilet including Trilogy device, nebulizer machine, and percussion vest. All to be delivered today. No further abx as he'd been on them for 8 days in the hospital and no clear indication of continuing pneumonia. To follow up as outpatient with pulmonology. (2) COPD exacerbation: CXR was negative for opacity. Procalcitonin was negative. - Duonebs q6hrWA, Mucinex 1200 mg BID, sodium chloride nebs BID, Pulmicort and Performist BID. - Flutter valve as tolerated. Now with pulmonary vest ordered as well. - Received 8 days of abx. None on discharge. No steroids on discharge. (3) Hypertension: BP very variable at 95/65 on 05/12; now 110/70 to 155/80 today. - Continued home propanolol. Patient does not want to stop this for his essential tremor. (4) Choking due to food (regurgitated): - S/p barium swallow at [facility] in [place] 2019. Also evaluated by speech therapy at [facility] on 03/19/19 (see GI note for details). - Continue regular diet per speech therapy recs. - Follows at [facility] for speech therapy -- resume at discharge. - EGD on 05/13 was normal apart from dimple from prior G-tube. (5) Sinus bradycardia: HR 40-50's on monitor; also has had sinus pauses, ~3 seconds long, on monitor over last 24 hours. - Pt. reports that he cannot miss beta erick dose due to essential tremor. (6) Parkinsonism: Sees [place] [facility]. Has a deep brain stimulator. - Continue Sinemet QID and propanolol as prescribed. (7) Essential tremor: - Continue propanolol as prescribed. (8) BPH with obstruction/lower urinary tract symptoms: - Continue Proscar and Flomax as prescribed. (9) Peptic ulcer disease: - Noted on EGD in May 2017. - PPI daily. 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 - Continue Hydrea 1000 mg qAM. (11) Depression: - Continue Lexapro 15 mg daily and Klonopin 1 mg qhs. (12) Macrocytic anemia: Macrocytic anemia noted on labs. B12 and Folate levels WNL. - Hgb stable at 12.8 on 05/13. (13) Elevated alkaline phosphatase level: Chronic elevation in alk phos levels. - Monitor as outpatient. (14) DVT prophylaxis: Heparin 5000 q8hr. Total Time Total Time Spent Total Time Spent (In Minutes): 45 Discharge Plan Discharge Items Patient Disposition: Home - Home Health Services Reason For Visit: SOB Discharge Diagnosis: Aspiration from Parkinson's Activity: Resume your previous activity Non-emergency contact: Primary Care Provider, Neurologist and [employer] Home Teacher Call non-emergency contact if: you have any medication questions, your symptoms worsen and your temperature is above 101 Follow-up/Referrals: Diomedes Childs MD [Physician] - 05/26/19 2:00 pm (Please, follow up at [facility] Pulmonology Office with Dr. Childs on SaturdayMay 26 at 2:00 pm. *If you need to change this appointment, call the office at [phone].) Chino Abdul [Primary Care Provider] - 05/18/19 1:10 pm (Please, follow up at Dr. Chino Abdul' office with his associate, Dr. Zeb Waggoner, on SaturdayMay 18 at 1:10 pm. *If you need to change this appointment, call their office at [phone].) Diet: Regular Addtl Attending Provider Instructions: You were in the hospital for shortness of breath that we believe is caused by saliva and secretions getting trapped in your airway. This is a result of the Parkinson's disease. Please use the Trilogy breathing machine at night. We are also working on getting you a vibration vest which will take a few weeks to get for you. As we talked about yesterday, please monitor your oxygen level and blood pressure 1-2 times per day. If you are worried about a low number, please call your doctors. If you are not feeling well (feeling short of breath, tired, lethargic, feverish) or have a fever > 101 degrees, please come to the Emergency Department or call 02-15-. Pending Studies at Discharge: No Stand-Alone Forms: My [facility], Smoking Cessation Medications and DC Order Prescriptions: New Perforomist 20 mcg/2 mL Solution For Nebulization 20 mcg NEB BIDR Qty: 120 RF: 0 ipratropium-albuterol 0.5 mg-3 mg(2.5 mg base)/3 mL Solution For Nebulization 3 ml NEB Q4R Qty: 180 RF: 0 sodium chloride 7 % Solution For Nebulization 4 ml NEB BIDR PRN (Reason: Shortness Of Breath Or Wheezing) Qty: 240 RF: 0 scopolamine base [Transderm-Scop] 1 mg over 3 days Patch 3 Day 1.5 mg transdermal Q3D@0800 Qty: 30 RF: 0 Continued ipratropium bromide 0.03 % spray,non-aerosol 2 sprays INTNAS TID Qty: 30 RF: 2 finasteride 5 mg tablet 5 mg PO QPM 90 Days Qty: 90 RF: 3 hydroxyurea 500 mg capsule 2 cap PO QAM RF: 0 fluticasone propion-salmeterol 250-50 mcg/dose blister with device 1 puff Inhalation BID RF: 0 propranolol 60 mg capsule,extended release 24 hr 1 cap PO QAM RF: 0 clonazepam 1 mg tablet 1 mg PO HS RF: 0 omeprazole 20 mg capsule,delayed release(DR/EC) 1 cap PO QAM RF: 0 albuterol sulfate 90 mcg/actuation HFA aerosol inhaler 2 puff Inhalation Q4H PRN (Reason: Shortness Of Breath Or Wheezing) RF: 0 carbidopa-levodopa 25-100 mg tablet 2 tabs PO QID RF: 0 ondansetron 4 mg tablet,disintegrating 4 mg PO BID PRN (Reason: Nausea) RF: 0 escitalopram oxalate 10 mg tablet 1.5 tab PO QAM RF: 0 tamsulosin [Flomax] 0.4 mg capsule 0.4 mg PO QPM RF: 0 Discharge Orders: Discharge Order (Routine); Ordered 05/15/19 Ordered By: Raymundo Mccarty/Other Patient Handouts: Nebulizer Use, Aspiration Dysphagia, Nebulizer Steps, Scopolamine Transdermal patch - 72 hour Admission Data Admit Date/Time: 05/07/19 12:27 Attending Provider: Raymundo Gaffney Admit Provider: Jose Luis Mendieta Primary Care Provider: Chino Abdul Other Providers: Jose Luis Mendieta ; Bernardo Weeks ; Diomedes Childs ; [facility] ; Wellington Jeff ; Lyndsay Martin Other Interventions: Discharge Summary Assessment (RN) Last Done: 05/15/19 12:38 DC Date/Time DO NOT enter until pt leaves facility: 05/15/19 13:13
== END 2019-05-15 13:13 | disposition home health service (06) | DRG 177 ==
LOC: ED 09:34 → SUATTDRO 12:27 → 2S 12:27 → 2E 05-14 14:49

== ENCOUNTER 2019-05-18 11:50 | Inpatient (IN) ==
[2019-05-18] MEDS ORDERED: ALBUT/IPRATROP 3MG/0.5MG NEB 3 ML VIAL NEB ONE (12:17)
[2019-05-18] MEDS ORDERED: VANCOMYCIN CONSULT ACTIVE PRN ×2 (12:17→16:18)
[2019-05-18] MEDS ORDERED: VANCOMYCIN HCL 2,250 MG in SODIUM CHLORIDE 0.9% 500 ML IV ONE (12:17)
[2019-05-18] MEDS ORDERED: AZITHROMYCIN 500 MG in DEXTROSE 5% 250 ML IV STA (12:17)
[2019-05-18] MEDS ORDERED: methylPREDNISolone 125 MG/2 ML VIAL IV STA (12:17)
[2019-05-18] MEDS ORDERED: CEFEPIME 2,000 MG/20 ML VIAL IV STA (12:17)
[2019-05-18] MEDS ORDERED: SODIUM CHLORIDE 0.9% 1000ML 1,000 ML IV ONE (12:18)
[2019-05-18 12:25] LABS: Basophils # (auto) 0.01 K/uL (0-0.2); Basophils % (auto) 0.1 %; Eosinophils % (auto) 1.2 %; Hematocrit (blood only) 38.8 % (42-52); Hemoglobin 12.6 g/dL (14.0-18.0); Immature Granulocytes # (auto) 0.03 K/uL (0.00-0.02); Immature Granulocytes % (auto) 0.4 %; Lymphocytes # (auto) 1.03 K/uL (1.2-3.4); Lymphocytes % (auto) 12.5 %; Mean Corpuscular Hemoglobin 41.2 pg (25-34); Mean Corpuscular Hgb Conc 32.5 g/dL (32-36); Mean Corpuscular Volume 126.8 fL (80-100); Mean Platelet Volume 9.7 fL (7.4-10.4); Monocytes % (auto) 13.3 %; Neutrophils # (auto) 5.97 K/uL (1.4-6.5); Neutrophils % (auto) 72.5 %; Nucleated RBC # (auto) 0.02 K/uL (0-0); Nucleated RBC % (auto) 0.3 %; Platelet Count 334 K/uL (130-400); RDW Coefficient of Variation 16.9 % (11.5-14.5); RDW Standard Deviation 77.5 fL (36.4-46.3); Red Blood Count 3.06 M/uL (4.7-6.1); White Blood Count 8.24 K/uL (4.8-10.8)
--- NOTE | 2019-05-18 12:27 | XRay Report ---
XR chest 1V portable HISTORY: 68 years-old Male Sepsis acute sepsis COMPARISON: Chest radiograph 05/12/2019 TECHNIQUE: Portable AP view of the chest FINDINGS: Cardiac silhouette is enlarged. Pulmonary vascular congestion with mild interstitial coarsening persi sts. Patient is slightly rotated towards the left. Hypoinflation. Mild right hemidiaphragmatic elevat ion. Persistent patchy bibasilar opacities, left greater than right. No pneumothorax or large pleural effusion. Degenerative changes of the shoulders and spine. Metallic coils project over the epigastri c distribution. IMPRESSION: 1. Cardiomegaly with pulmonary vascular congestion. 2. Patchy bibasilar opacities, left greater than right suggest atelectasis versus pneumonitis. The above report was generated using voice recognition software. It may contain grammatical, syntax o r spelling errors. Electronically signed by: Baldev Dumont M.D. 05/18/2019 12:26 PM
[2019-05-18 12:37] LABS: INR 1.1 (0.9-1.1); Partial Thromboplastin Time 27.3 Seconds (21.0-31.0); Prothrombin Time 11.5 Seconds (9.0-12.0)
[2019-05-18 12:42] LABS: Albumin Level 3.1 gm/dl (3.4-5.0); BUN Creatinine Ratio 16.8 (10-20); Calcium 9.3 mg/dl (8.5-10.1); Creatinine Clr Calc Pharmacy 84.6 ml/min; Est GFR (African American) 102.5; Est GFR (Non-African American) 88.5; Potassium 4.1 mmol/L (3.5-5.1)
[2019-05-18 12:45] LABS: Albumin Globulin Ratio 0.6 (0.9-2); Bilirubin,Total 0.7 mg/dl (0.2-1); Globulin 4.9 gm/dl (2.5-4.0)
[2019-05-18 12:54] LABS: pH VBG 7.25 (7.36-7.41)
[2019-05-18 12:55] LABS: Howell-Jolly Bodies 1+; Macrocytosis Present; Target Cells 1+
[2019-05-18] MEDS ORDERED: ACETAMINOPHEN 1,000 MG/100 ML VIAL IV STA (13:09)
[2019-05-18] MEDS ORDERED: SODIUM CHLORIDE 0.9% 1000ML 500 ML IV ONE (13:25)
[2019-05-18 14:24] LABS: Influenza A virus by PCR Neg for Influ A (Neg); Influenza B virus by PCR Neg for Influ B (Neg)
--- NOTE | 2019-05-18 14:32 | History & Physical Report ---
Date of Service May 18, 2019 Assessment & Plan (1) Respiratory failure: Patient presenting with acute on chronic hypoxic/hypercarbic respiratory failure presently on BiPAP /, 55% FiO2 saturating 90 to 92%. Patient tachypneic with respiratory rate at 28 breaths/min. VBG with acute on chronic respiratory acidosis with pH = 7.25, PCO2 = 87, serum bicarb = 36. Suspect inciting event to be recurrent aspiration with possible pneumonitis versus developing pneumonia. Febrile now at 38.4. Procalcitonin and lactate both negative. Chest x-ray with cardiomegaly, pulmonary vascular congestion as well as patchy bibasilar opacities left greater than right suggesting atelectasis versus pneumonitis. Influenza negative. -Admit to PCU -Continue BiPAP -Repeat VBG on arrival to the floor -Goal saturation 88 to 92% and patient with COPD and evidence of chronic retention -Secretion management to include humidified oxygen, nebulized hypertonic saline, percussion vest, scopolamine patch -Mucinex 600 mg p.o. twice daily -Empiric antibiotics with vancomycin and Zosyn for now -Follow cultures Present on Admission?: Yes (2) Chronic pulmonary aspiration: Mr. Schwarz has had a barium study performed on 01/29/2019 which revealed esophageal dysmotility as well as a Speech Pathology evaluation at [facility] with Video Fluoroscopy performed on 03/19/2019 which revealed oral pharyngeal dysphagia in setting of Parkinson's disease. He has had difficulty managing his secretions as discussed above. Patient has had 3 prior NG tube in the past with poor outcome and does not wish to pursue this treatment. Continue secretion management -Scopolamine -Hypertonic saline nebs -Vibration vest -Suctioning as needed -Consider Robinul or atropine Present on Admission?: Yes (3) Choking due to food (regurgitated): As above, patient with esophageal dysmotility as well as oropharyngeal dysphasia in setting of Parkinson's disease. reports decreased p.o. intake since his discharge home. -N.p.o. for now -Strict aspiration precautions Present on Admission?: Yes (4) Constipation: reports patient has not had a bowel movement for the last 11 days. This in turn has caused some mild nausea as well as decreased urine output. Rossi has been placed in the ER with passage of dark urine. Bowel sounds diminished -Check KUB x1 for ileus IV fluid, electric repletion as needed Dulcolax 10 mg OH now and daily as needed -Colace 100 mg p.o. twice daily as needed MiraLAX as needed Present on Admission?: Yes (5) BPH with obstruction/lower urinary tract symptoms: Patient with history of BPH.? Urinary retention in setting of constipation. Rossi placed in ER. Check UA and culture Maintain Rossi for now Continue Flomax and finasteride at home doses Present on Admission?: Yes (6) Hypertension: Blood pressure variable during last hospital stay. Patient presently normotensive at 125/65. Continue propranolol Continue to monitor Present on Admission?: Yes (7) Sinus pause: Patient with sinus bradycardia with pauses noted during last hospital admission. Cardiology was consulted. Episode occurred at night and was asymptomatic. Thought given to discontinuing propranolol however, patient's tremor symptoms are unmanageable without his beta-erick. Telemetry monitoring Present on Admission?: Yes (8) Elevated alkaline phosphatase level: Patient with history of the same. Alk phos today = 205 -Continue to monitor -Repeat LFTs in the a.m. Present on Admission?: Yes (9) Macrocytic anemia: Chronic. Stable. Hgb = 12.6, HCT = 38.8, MCV = 126.8. B12 and folate levels within normal limits in the past -CBC in a.m. Present on Admission?: Yes (10) Depression: Chronic. Stable. Continue S-Citalopram We will hold clonazepam for now in setting of altered mental status and respiratory compromise Present on Admission?: Yes (11) Essential (hemorrhagic) thrombocythemia: Chronic. Stable. 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 Stable. Continue omeprazole daily Present on Admission?: Yes (13) Parkinsonism: Chronic. Patient follows with [facility]. Has a deep brain stimulator which was placed August 2018. Continue carbidopa levodopa at home dose Continue propranolol for tremor Present on Admission?: Yes (14) Essential tremor: Chronic. Stable. Continue propranolol Present on Admission?: Yes (15) Chronic obstructive pulmonary disease: Patient with long-standing COPD, chronic CO2 retention. Was administered albuterol, azithromycin, cefepime and Solu-Medrol while in the ER. He has diminished air entry as well as diffuse wheezing throughout Continue Advair Continue formoterol Continue duo nebs Continue albuterol as needed Prednisone taper FENLR at 125 mL/h x 2 L, monitor electrolytes and replete as needed, n.p.o. for now ProphylaxisLovenox for DVT prophylaxis, continue home omeprazole CodeDNR/DNI per discussion with Dispositionadmit to PCU for continued BiPAP therapy. PT/OT/case management evaluation for placement needs. states that patient is difficult to manage at home given his present state History of Present Illness Chief Complaint: Shortness of breath, fever, weakness Primary Care Provider: Chino Abdul Mr. Papito Schwarz is an unfortunate 68-year-old male with history of Parkinson's disease, dysphasia with chronic aspiration presenting with worsening respiratory status, weakness, fever. Patient was recently admitted to [facility] on 05/07/2019 through 05/15/2019 after presenting with shortness of breath and choking while eating. During that hospital stay he was evaluated by Gastroenterology, Pulmonology, Cardiology and Palliative Care. He had an EGD performed on 05/13/[address] Gonzales which showed no strictures. He was treated for COPD exacerbation. He was managed with aggressive pulmonary toilet and secretion management. He was discharged home and arranged to have home Trilogy, nebulizers and percussion vest. History obtained from at bedside as patient is somnolent and altered. She reports that since his return home on 05/15 patient has not been doing well. He has had progressive shortness of breath as well as pronounced "gurgling" upper airway noise, weakness, fatigue, decreased p.o. intake. Patient unable to ambulate at home. Additionally, patient has had no bowel movement x11 days as well as decreased urine output and nausea. This morning, patient found to have a fever. Also, was unable to wake him up as he was minimally responsive. Patient opens eyes to verbal stimuli and follows commands, however, is unable to provide details of history. He does deny pain at this time. ER course: Acetaminophen x1 g, albuterol 12 mL neb, azithromycin 500 mg IV, cefepime 2 g IV, Solu-Medrol 125 mg IV, normal saline 1500 mL, vancomycin 2250 mg IV Allergies Allergy/AdvReac Type Severity Reaction Status Date / Time No Known Allergies Allergy Verified 12/02/19 12:46 Home Medications Home Medications Medication Instructions Recorded Confirmed Type albuterol sulfate 2 puff INHALATION Q4H PRN 04/07/18 05/18/19 History carbidopa-levodopa 2 tabs PO QID 04/07/18 05/18/19 History clonazepam 1 mg PO HS 04/07/18 05/18/19 History escitalopram oxalate 1.5 tab PO QAM 04/07/18 05/18/19 History fluticasone propion-salmeterol 1 puff INHALATION BID 04/07/18 05/18/19 History hydroxyurea 2 cap PO QAM 04/07/18 05/18/19 History omeprazole 1 cap PO QAM 04/07/18 05/18/19 History ondansetron 4 mg PO BID PRN 04/07/18 05/18/19 History propranolol 1 cap PO QAM 04/07/18 05/18/19 History tamsulosin [Flomax] 0.4 mg PO QPM 01/27/19 05/18/19 History ipratropium bromide 0.03 % nasal 2 sprays INTNAS TID #30 ml 02/24/19 05/18/19 Rx spray finasteride 5 mg tablet 5 mg PO QPM 90 Days #90 tab 03/04/19 05/18/19 Rx formoterol fumarate [Perforomist] 20 mcg NEB BIDR #120 ml 05/15/19 05/18/19 Rx ipratropium-albuterol 3 ml NEB Q4R #180 ml 05/15/19 05/18/19 Rx scopolamine base [Transderm-Scop] 1.5 mg TRANSDERMAL Q3D@0800 #30 ea 05/15/19 05/18/19 Rx sodium chloride 4 ml NEB BIDR PRN #240 ml 05/15/19 05/18/19 Rx Past Med/Surg History Social History Preferred Language: [place] Communication Ability: Impaired Communication Ability Comment: somnolent Mailroom Messenger Required: No Beliefs That Will Affect Care: None marital status: Current Living Situation: Spouse Other Information That Helps Us Care for You: No Feels Safe at Home: Yes Safety Concerns: Feels Safe At This Time Smoking Status: Former smoker Do You Dip or Chew Tobacco: No ; Smoking End Date: 2012 ; Second Hand Exposure: No ; Tobacco Cessation Education Requested by Patient: No Hx Alcohol Use: No Hx Substance Use: No Review of Systems Review of Systems: Unobtainable due to cognitive status Physical Exam Physical Exam: General: patient ill in appearance, somnolent, arousable, follows commands, BiPAP in place Skin: warm, moist, intact, no rashes or lesions HEENT: NC/AT, PERRL, anicteric sclera, conjunctiva without injection, external ear normal to inspection and nontender, nares patent, dry mucus membranes, dentition intact, no oropharyngeal lesions, neck supple, trachea midline, no LAD, no thyromegaly, no JVD, scopolamine patch behind left ear Heart: +S1/S2, regular, no m/r/g Lungs: Coarse breath sounds bilaterally with diffuse end expiratory wheezing Abd: Diminished bowel sounds, abdomen soft, NT, mildly distended with reducible umbilical hernia, no organomegaly/ascites Ext: warm, 2+ pulses in UE/LE bilaterally, no clubbing/cyanosis or edema Neuro: nonfocal, somnolent but arousable, following commands, no facial droop, moving all extremities on command with equal strength 5/5 Results & Data Vital Signs (Past 12 Hours) Vital Signs Temp Pulse Pulse Resp BP Pulse Ox 05/18/19 14:01 80 34 H 91 05/18/19 14:00 79 31 H 107/58 L 93 05/18/19 13:46 78 27 H 91 05/18/19 13:45 79 29 H 114/59 L 91 05/18/19 13:35 82 33 H 91 05/18/19 13:31 81 33 H 93 05/18/19 13:30 81 27 H 121/64 93 05/18/19 13:16 80 31 H 94 05/18/19 13:15 81 31 H 120/65 93 05/18/19 13:13 94 05/18/19 13:12 79 32 H 94 05/18/19 13:01 82 37 H 94 05/18/19 13:00 82 37 H 125/65 95 05/18/19 12:46 77 35 H 95 05/18/19 12:45 77 33 H 134/71 95 05/18/19 12:44 38.4 C H 05/18/19 12:31 70 31 H 93 05/18/19 12:30 73 33 H 123/60 92 05/18/19 12:29 73 33 H 92 05/18/19 12:21 69 41 H 93 05/18/19 12:15 70 34 H 123/86 93 05/18/19 11:58 37.3 C 69 36 H 117/65 90 Laboratory Results Lab Results 05/18/19 05/18/19 05/18/19 Range/Units 12:05 12:05 12:05 WBC 8.24 (4.8-10.8) K/uL RBC 3.06 L (4.7-6.1) M/uL Hgb 12.6 L (14.0-18.0) g/dL Hct 38.8 L (42-52) % MCV 126.8 H (80-100) fL MCH 41.2 H (25-34) pg MCHC 32.5 (32-36) g/dL RDW Std Deviation 77.5 H (36.4-46.3) fL RDW Coeff of Yi 16.9 H (11.5-14.5) % Plt Count 334 (130-400) K/uL MPV 9.7 (7.4-10.4) fL Immature Gran % (Auto) 0.4 % Neut % (Auto) 72.5 % Lymph % (Auto) 12.5 % [place] % (Auto) 13.3 % Eos % (Auto) 1.2 % Baso % (Auto) 0.1 % Immature Gran # (Auto) 0.03 H (0.00-0.02) K/uL Neut # (Auto) 5.97 (1.4-6.5) K/uL Lymph # (Auto) 1.03 L (1.2-3.4) K/uL [place] # (Auto) 1.10 H (0.11-0.59) K/uL Eos # (Auto) 0.10 (0-0.5) K/uL Baso # (Auto) 0.01 (0-0.2) K/uL Absolute Nucleated RBC 0.02 H (0-0) K/uL Nucleated RBC % (auto) 0.3 % Macrocytosis Present Target Cells 1+ [place] Bodies 1+ PT 11.5 (9.0-12.0) Seconds INR 1.1 (0.9-1.1) APTT 27.3 (21.0-31.0) Seconds PTT Ratio 1.0 VBG pH (7.36-7.41) VBG pCO2 (38-50) mmHg VBG pO2 mmHg VBG HCO3 mmol/L VBG O2 Saturation % VBG Base Excess mEq/L Barometric Pressure mm/Hg Sodium 140 (136-145) mmol/L Potassium 4.1 (3.5-5.1) mmol/L Chloride 102 (98-107) mmol/L Carbon Dioxide 36 H (21-32) mmol/L Anion Gap 2.0 L (3-11) BUN 15 (7-18) mg/dl Creatinine 0.89 (0.6-1.4) mg/dl Est Cr Clr Drug Dosing 84.6 ml/min Est GFR ( Amer) 102.5 Est GFR (Non-Af Amer) 88.5 BUN/Creatinine Ratio 16.8 (10-20) Glucose 91 (70-99) mg/dl Lactate (0.4-2.0) mmol/L Calcium 9.3 (8.5-10.1) mg/dl Total Bilirubin 0.7 (0.2-1) mg/dl AST 27 (15-37) U/L ALT 15 (12-78) U/L Alkaline Phosphatase 205 H (45-117) U/L Total Protein 8.0 (6.4-8.2) gm/dl Albumin 3.1 L (3.4-5.0) gm/dl Globulin 4.9 H (2.5-4.0) gm/dl Albumin/Globulin Ratio 0.6 L (0.9-2) Procalcitonin (0-0.5) ng/ml Influenza Type A (PCR) (Neg) Influenza Type B (PCR) (Neg) 05/18/19 05/18/19 05/18/19 Range/Units 12:05 12:05 12:39 WBC (4.8-10.8) K/uL RBC (4.7-6.1) M/uL Hgb (14.0-18.0) g/dL Hct (42-52) % MCV (80-100) fL MCH (25-34) pg MCHC (32-36) g/dL RDW Std Deviation (36.4-46.3) fL RDW Coeff of Yi (11.5-14.5) % Plt Count (130-400) K/uL MPV (7.4-10.4) fL Immature Gran % (Auto) % Neut % (Auto) % Lymph % (Auto) % [place] % (Auto) % Eos % (Auto) % Baso % (Auto) % Immature Gran # (Auto) (0.00-0.02) K/uL Neut # (Auto) (1.4-6.5) K/uL Lymph # (Auto) (1.2-3.4) K/uL [place] # (Auto) (0.11-0.59) K/uL Eos # (Auto) (0-0.5) K/uL Baso # (Auto) (0-0.2) K/uL Absolute Nucleated RBC (0-0) K/uL Nucleated RBC % (auto) % Macrocytosis Target Cells [place] Bodies PT (9.0-12.0) Seconds INR (0.9-1.1) APTT (21.0-31.0) Seconds PTT Ratio VBG pH 7.25 L (7.36-7.41) VBG pCO2 87 H (38-50) mmHg VBG pO2 50 mmHg VBG HCO3 37 mmol/L VBG O2 Saturation 71.0 % VBG Base Excess 7.0 mEq/L Barometric Pressure 724.3 mm/Hg Sodium (136-145) mmol/L Potassium (3.5-5.1) mmol/L Chloride (98-107) mmol/L Carbon Dioxide (21-32) mmol/L Anion Gap (3-11) BUN (7-18) mg/dl Creatinine (0.6-1.4) mg/dl Est Cr Clr Drug Dosing ml/min Est GFR ( Amer) Est GFR (Non-Af Amer) BUN/Creatinine Ratio (10-20) Glucose (70-99) mg/dl Lactate 0.7 (0.4-2.0) mmol/L Calcium (8.5-10.1) mg/dl Total Bilirubin (0.2-1) mg/dl AST (15-37) U/L ALT (12-78) U/L Alkaline Phosphatase (45-117) U/L Total Protein (6.4-8.2) gm/dl Albumin (3.4-5.0) gm/dl Globulin (2.5-4.0) gm/dl Albumin/Globulin Ratio (0.9-2) Procalcitonin < 0.05 (0-0.5) ng/ml Influenza Type A (PCR) (Neg) Influenza Type B (PCR) (Neg) 05/18/19 05/18/19 Range/Units 13:34 13:52 WBC (4.8-10.8) K/uL RBC (4.7-6.1) M/uL Hgb (14.0-18.0) g/dL Hct (42-52) % MCV (80-100) fL MCH (25-34) pg MCHC (32-36) g/dL RDW Std Deviation (36.4-46.3) fL RDW Coeff of Yi (11.5-14.5) % Plt Count (130-400) K/uL MPV (7.4-10.4) fL Immature Gran % (Auto) % Neut % (Auto) % Lymph % (Auto) % [place] % (Auto) % Eos % (Auto) % Baso % (Auto) % Immature Gran # (Auto) (0.00-0.02) K/uL Neut # (Auto) (1.4-6.5) K/uL Lymph # (Auto) (1.2-3.4) K/uL [place] # (Auto) (0.11-0.59) K/uL Eos # (Auto) (0-0.5) K/uL Baso # (Auto) (0-0.2) K/uL Absolute Nucleated RBC (0-0) K/uL Nucleated RBC % (auto) % Macrocytosis Target Cells [place] Bodies PT (9.0-12.0) Seconds INR (0.9-1.1) APTT (21.0-31.0) Seconds PTT Ratio VBG pH (7.36-7.41) VBG pCO2 (38-50) mmHg VBG pO2 mmHg VBG HCO3 mmol/L VBG O2 Saturation % VBG Base Excess mEq/L Barometric Pressure mm/Hg Sodium (136-145) mmol/L Potassium (3.5-5.1) mmol/L Chloride (98-107) mmol/L Carbon Dioxide (21-32) mmol/L Anion Gap (3-11) BUN (7-18) mg/dl Creatinine (0.6-1.4) mg/dl Est Cr Clr Drug Dosing ml/min Est GFR ( Amer) Est GFR (Non-Af Amer) BUN/Creatinine Ratio (10-20) Glucose (70-99) mg/dl Lactate 0.6 (0.4-2.0) mmol/L Calcium (8.5-10.1) mg/dl Total Bilirubin (0.2-1) mg/dl AST (15-37) U/L ALT (12-78) U/L Alkaline Phosphatase (45-117) U/L Total Protein (6.4-8.2) gm/dl Albumin (3.4-5.0) gm/dl Globulin (2.5-4.0) gm/dl Albumin/Globulin Ratio (0.9-2) Procalcitonin (0-0.5) ng/ml Influenza Type A (PCR) Neg for Influ A (Neg) Influenza Type B (PCR) Neg for Influ B (Neg) Diagnostic Findings XR chest 1V portable HISTORY: 68 years-old Male Sepsis acute sepsis COMPARISON: Chest radiograph 05/12/2019 TECHNIQUE: Portable AP view of the chest FINDINGS: Cardiac silhouette is enlarged. Pulmonary vascular congestion with mild interstitial coarsening persists. Patient is slightly rotated towards the left. Hypoinflation. Mild right hemidiaphragmatic elevation. Persistent patchy bibasilar opacities, left greater than right. No pneumothorax or large pleural effusion. Degenerative changes of the shoulders and spine. Metallic coils project over the epigastric distribution. IMPRESSION: 1. Cardiomegaly with pulmonary vascular congestion. 2. Patchy bibasilar opacities, left greater than right suggest atelectasis versus pneumonitis. The above report was generated using voice recognition software. It may contain grammatical, syntax or spelling errors. Electronically signed by: Baldev Dumont M.D. 05/18/2019 12:26 PM Dictated: 05/18/19 1222 Transcribed: 05/18/19 1222 ECG Additional Comments: The study shows normal sinus rhythm at 71 bpm, leftward axis, OH = 160, QRS = 100, QTc = 419, no acute ischemic changes, no change when compared with prior Code Status & VTE Plan Code Status DNR/DNI Patient evaluated by palliative care during last hospital stay. POLST form complete VTE Prophylaxis Plan VTE Prophylaxis will be ordered: Yes PG Care Time/CCT Total # of Minutes Spent Total Time Spent with Patient: Total time spent is greater than 50% in coordination of care (as documented) at patient's floor/unit and/or counseling patient: (1) Choking due to food (regurgitated) Encounter type: subsequent encounter Qualified Code(s): T17.320D - Food in larynx causing asphyxiation, subsequent encounter (2) Depression Active/Remission status: remission status unspecified Depression Type: major depressive disorder Major depression recurrence: unspecified whether recurrent Qualified Code(s): F32.9 - Major depressive disorder, single episode, unspecified (3) Respiratory failure Chronicity: acute on chronic Respiratory failure complication: hypoxia and hypercapnia Qualified Code(s): J96.21 - Acute and chronic respiratory failure with hypoxia; J96.22 - Acute and chronic respiratory failure with hypercapnia (4) Parkinsonism Parkinsonism type: Parkinson's disease Qualified Code(s): G20 - Parkinson's disease (5) Chronic obstructive pulmonary disease COPD type: unspecified COPD Qualified Code(s): J44.9 - Chronic obstructive pulmonary disease, unspecified (6) Chronic pulmonary aspiration Encounter type: subsequent encounter Qualified Code(s): T17.908D - Unspecified foreign body in respiratory tract, part unspecified causing other injury, subsequent encounter (7) Hypertension Hypertension type: essential hypertension Qualified Code(s): I10 - Essential (primary) hypertension (8) Constipation Constipation type: unspecified constipation type Qualified Code(s): K59.00 - Constipation, unspecified
[2019-05-18] MEDS ORDERED: ALBUTEROL 0.5% NEB SOLN 2.5 MG/0.5 ML VIAL NEB PRN (16:18)
[2019-05-18] MEDS ORDERED: PIPERACILL/TAZOBAC CONSULT ACTIVE PRN (16:18)
[2019-05-18] MEDS ORDERED: LACTATED RINGER'S 1,000 ML IV SCH (16:18)
[2019-05-18] MEDS ORDERED: ONDANSETRON INJ 2 MG/ML 2 ML VIAL IV PRN (16:18)
[2019-05-18] MEDS ORDERED: ALBUT/IPRATROP 3MG/0.5MG NEB 3 ML VIAL NEB SCH (16:18)
[2019-05-18] MEDS ORDERED: bisacodyL 10 MG SUPP PR STA (16:18)
[2019-05-18] MEDS ORDERED: bisacodyL 10 MG SUPP PR PRN (16:18)
[2019-05-18] MEDS ORDERED: SODIUM CHLOR 7% 4 ML NEB NEB PRN (16:18)
[2019-05-18] MEDS ORDERED: ACETAMINOPHEN 325 MG TAB PO PRN (16:18)
[2019-05-18] MEDS ORDERED: POLYETHYLENE (MIRALAX) 17 GM PACK PO PRN (16:18)
[2019-05-18] MEDS ORDERED: DOCUSATE SODIUM 100 MG CAP PO PRN (16:18)
--- NOTE | 2019-05-18 16:51 | Emergency Department Note ---
Entered by Maryjo Sheffield acting as a scribe for History of Present Illness General Chief complaint: Respiratory Problems Time Seen by Provider: 05/18/19 12:06 Source: patient and family History of Present Illness Onset (ago): day(s) (this morning) Location: chest Pain Consistency: + other (episode) Quality: + other (respiratory problems) Relieved By: not by medication (nebulizer) Associated symptoms: + confusion, + fever/chills (fever), + loss of appetite and + shortness of breath; no chest pain and no nausea/vomiting (vomiting) The patient is a 68 year old male w/ PMHx COPD, depression, dysphagia, thrombocytopenia, diverticulitis, GI bleed, pancreatitis, HTN, Parkinsons, peptic ulcer disease, cholecystectomy, bowel resection, splenectomy, and deep brain stimulator who presents to the ED w/ CC of an episode of respiratory problems starting this morning. The patients states that the patient was discharged a few days ago from the hospital. She states that over the past 2 nights he has been confused. She reports that this morning she was unable to wake him up and when she checked his temperature, he had a fever. She states that he also was having difficulty breathing. She state that he isnt able to cough anything up so he just gurgles. The patients states that she has tri ed giving him his nebulizers, but it isnt helping. She notes that he is a DNR and DNI. The patient complains of feeling short of breath. The patients complaints of the patient barely eating. The patient denies chest pain and vomiting. Home Medications Home Medications Medication Instructions Recorded Confirmed Type albuterol sulfate 2 puff INHALATION Q4H PRN 04/07/18 05/18/19 History carbidopa-levodopa 2 tabs PO QID 04/07/18 05/18/19 History clonazepam 1 mg PO HS 04/07/18 05/18/19 History escitalopram oxalate 1.5 tab PO QAM 04/07/18 05/18/19 History fluticasone propion-salmeterol 1 puff INHALATION BID 04/07/18 05/18/19 History hydroxyurea 2 cap PO QAM 04/07/18 05/18/19 History omeprazole 1 cap PO QAM 04/07/18 05/18/19 History ondansetron 4 mg PO BID PRN 04/07/18 05/18/19 History propranolol 1 cap PO QAM 04/07/18 05/18/19 History tamsulosin [Flomax] 0.4 mg PO QPM 01/27/19 05/18/19 History ipratropium bromide 0.03 % nasal 2 sprays INTNAS TID #30 ml 02/24/19 05/18/19 Rx spray finasteride 5 mg tablet 5 mg PO QPM 90 Days #90 tab 03/04/19 05/18/19 Rx formoterol fumarate [Perforomist] 20 mcg NEB BIDR #120 ml 05/15/19 05/18/19 Rx ipratropium-albuterol 3 ml NEB Q4R #180 ml 05/15/19 05/18/19 Rx scopolamine base [Transderm-Scop] 1.5 mg TRANSDERMAL Q3D@0800 #30 ea 05/15/19 05/18/19 Rx sodium chloride 4 ml NEB BIDR PRN #240 ml 05/15/19 05/18/19 Rx Allergies Allergy/AdvReac Type Severity Reaction Status Date / Time No Known Allergies Allergy Verified 05/18/19 12:46 Past Med/Surg History Medical History Choking due to food (regurgitated) COPD (chronic obstructive pulmonary disease) Depression Dysphagia chronic hx of dysphagia x 1 year felt 2/2 parkinson's. Hx aspiration PNA (no current acute pulmonary complaints; "at baseline" at PAT visit 02/03/19). Moderate esophageal dysmotility with no aspiration per barium swallow 01/2019. 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 OR/surgeon made aware Family History Grandfather Family history of colon cancer Social History Preferred Language: Swazi Communication Ability: Impaired Manufacture Specialist Required: No Beliefs That Will Affect Care: None marital status: Current Living Situation: Spouse Feels Safe at Home: Yes Smoking Status: Former smoker Second Hand Exposure: No ; Hx Alcohol Use: No Hx Substance Use: No Review of Systems See HPI for pertinent positives & negatives. and A total of 10 systems reviewed and were otherwise negative Physical Exam Vital Signs Vital Signs - 24 hr 05/18/19 11:58 05/18/19 12:15 05/18/19 12:21 Temperature 37.3 C Temperature Source Oral Pulse Rate 69 70 69 Pulse Rate [Right Finger] Pulse Rate from SpO2 Sensor 70 68 Respiratory Rate 36 H 34 H 41 H Respiratory Effort / Characteristics Grunting Short of Breath Respiratory Depth Respiratory Pattern See-Saw Blood Pressure 117/65 123/86 Blood Pressure Mean 82 91 Pulse Oximetry 90 93 93 Oxygen Delivery Method Oxymask Oxygen Flow Rate 15 Fraction of Inspired Oxygen Sepsis Recent Fever Within 48 Hours Yes Sepsis Action Taken by Nursing Physician Notified 05/18/19 12:29 05/18/19 12:30 05/18/19 12:31 Temperature Temperature Source Pulse Rate 73 70 Pulse Rate [Right Finger] 73 Pulse Rate from SpO2 Sensor 73 71 Respiratory Rate 33 H 33 H 31 H Respiratory Effort / Characteristics Non-Labored Spontaneous Non-Labored Spontaneous Respiratory Depth Normal Respiratory Pattern Regular Blood Pressure 123/60 Blood Pressure Mean 76 Pulse Oximetry 92 92 93 Oxygen Delivery Method BiPAP Oxygen Flow Rate Fraction of Inspired Oxygen 50 50 Sepsis Recent Fever Within 48 Hours Sepsis Action Taken by Nursing 05/18/19 12:44 05/18/19 12:45 05/18/19 12:46 Temperature 38.4 C H Temperature Source Rectal Pulse Rate 77 77 Pulse Rate [Right Finger] Pulse Rate from SpO2 Sensor 75 78 Respiratory Rate 33 H 35 H Respiratory Effort / Characteristics Respiratory Depth Respiratory Pattern Blood Pressure 134/71 Blood Pressure Mean 86 Pulse Oximetry 95 95 Oxygen Delivery Method Oxygen Flow Rate Fraction of Inspired Oxygen Sepsis Recent Fever Within 48 Hours Sepsis Action Taken by Nursing 05/18/19 13:00 05/18/19 13:01 05/18/19 13:12 Temperature Temperature Source Pulse Rate 82 82 79 Pulse Rate [Right Finger] Pulse Rate from SpO2 Sensor 83 83 Respiratory Rate 37 H 37 H 32 H Respiratory Effort / Characteristics Respiratory Depth Respiratory Pattern Blood Pressure 125/65 Blood Pressure Mean 80 Pulse Oximetry 95 94 94 Oxygen Delivery Method BiPAP Oxygen Flow Rate Fraction of Inspired Oxygen Sepsis Recent Fever Within 48 Hours Sepsis Action Taken by Nursing 05/18/19 13:13 05/18/19 13:15 05/18/19 13:16 Temperature Temperature Source Pulse Rate 81 80 Pulse Rate [Right Finger] Pulse Rate from SpO2 Sensor 80 81 Respiratory Rate 31 H 31 H Respiratory Effort / Characteristics Respiratory Depth Respiratory Pattern Blood Pressure 120/65 Blood Pressure Mean 74 Pulse Oximetry 94 93 94 Oxygen Delivery Method BiPAP BiPAP BiPAP Oxygen Flow Rate Fraction of Inspired Oxygen Sepsis Recent Fever Within 48 Hours Sepsis Action Taken by Nursing 05/18/19 13:30 05/18/19 13:31 05/18/19 13:35 Temperature Temperature Source Pulse Rate 81 81 82 Pulse Rate [Right Finger] Pulse Rate from SpO2 Sensor 81 81 Respiratory Rate 27 H 33 H 33 H Respiratory Effort / Characteristics Non-Labored Spontaneous Respiratory Depth Normal Respiratory Pattern Regular Blood Pressure 121/64 Blood Pressure Mean 82 Pulse Oximetry 93 93 91 Oxygen Delivery Method BiPAP BiPAP Oxygen Flow Rate Fraction of Inspired Oxygen 45 Sepsis Recent Fever Within 48 Hours Sepsis Action Taken by Nursing 05/18/19 13:45 05/18/19 13:46 05/18/19 14:00 Temperature Temperature Source Pulse Rate 79 78 79 Pulse Rate [Right Finger] Pulse Rate from SpO2 Sensor 79 79 79 Respiratory Rate 29 H 27 H 31 H Respiratory Effort / Characteristics Respiratory Depth Respiratory Pattern Blood Pressure 114/59 L 107/58 L Blood Pressure Mean 67 64 Pulse Oximetry 91 91 93 Oxygen Delivery Method BiPAP BiPAP Oxygen Flow Rate Fraction of Inspired Oxygen 55 Sepsis Recent Fever Within 48 Hours Sepsis Action Taken by Nursing 05/18/19 14:01 Temperature Temperature Source Pulse Rate 80 Pulse Rate [Right Finger] Pulse Rate from SpO2 Sensor 79 Respiratory Rate 34 H Respiratory Effort / Characteristics Respiratory Depth Respiratory Pattern Blood Pressure Blood Pressure Mean Pulse Oximetry 91 Oxygen Delivery Method Oxygen Flow Rate Fraction of Inspired Oxygen Sepsis Recent Fever Within 48 Hours Sepsis Action Taken by Nursing GENERAL: Ill appearing, severe distress, tachypnea. EYE EXAM: Normal conjunctiva. PERRL, no anisocoria and EOM's grossly intact w/o pain. OROPHARYNX: Moist mucous membranes. Grossly normal dentition. NECK: Supple, no nuchal rigidity, no adenopathy, non-tender. No signs of meningismus. LUNGS: Gurgling sounds throughout. Tachypnea. Decreased breath sounds throughout. Poor effort. HEART: NSR, no MRG. ABDOMEN: Abdomen soft, non-tender, normo-active bowel sounds, no masses, no rebound or guarding. Midline surgical scar that is well healed. BACK: No CVA TTP. SKIN: No rashes and no bruising. UPPER EXTREMITIES: Upper extremities are grossly normal. LOWER EXTREMITIES: No pitting edema. No calf pain. NEURO EXAM: A&O x3, cranial nerves II-XII grossly intact, normal speech, moves all 4 extremities on command w/o issue. Course Course 1207: EMR reviewed. The patient was discharged from the hospital on 05/15 due to chronic aspiration. 1210: The patient was evaluated in room A11B. A complete history and physical exam was performed. I immediately called for Bi-PAP at this time. 1212: Orders were placed and the patient was placed on a panel monitor at this time. 1238: I reevaluated the patient and he is tolerating Bi-PAP. I discussed the test results and treatment plan with his at this time. She verbally agrees and understands. 1309: I discussed the patient's case with Dr. Kyaw BASS Hospitalist. She will evaluate the patient for further management. 1330: I ordered IV Tylenol for the fever, a cath urine, and a flu swab. 1342: I reevaluated the patient and he was down to 85% on Bi-PAP. He was placed at 12/7 PEEP. 1425:Nursing staff called and the patient was reported to be sating at 87%. Upon my arrival, he was back up to 90%. 1431: Nursing staff called and informed me that the patient was desating again to 85%. I made minor adjustments to his FIO2 and PEEP at this time. His pulse ox improved to 92%. Administered Medications Discontinued Medications Albuterol (Duoneb) 12 ml NEB ONE ONE Stop: 05/18/19 12:18 Last Admin: 05/18/19 12:27 Dose: 12 ml Documented by: [id number] Vancomycin HCl 2,250 mg/ (Sodium Chloride) 545 mls @ 200 mls/hr IV NOW ONE Stop: 05/18/19 15:00 Last Infusion: 05/18/19 16:07 Dose: 0 mls/hr Documented by: [id number] Admin: 05/18/19 13:06 Dose: 200 mls/hr Documented by: [id number] Cefepime HCl (Maxipime) 2,000 mg in 20 mls @ 5 mls/min IV NOW STA; Protocol Stop: 05/18/19 12:20 Last Admin: 05/18/19 12:44 Dose: 5 mls/min Documented by: [id number] Azithromycin 500 mg/ Dextrose 255 mls @ 127.5 mls/hr IV NOW STA Stop: 05/18/19 14:16 Last Infusion: 05/18/19 16:07 Dose: 0 mls/hr Documented by: [id number] Admin: 05/18/19 12:52 Dose: 127.5 mls/hr Documented by: [id number] Sodium Chloride (Nss 1000ml) 1,000 mls @ 999 mls/hr IV .Q1H1M ONE Stop: 05/18/19 13:18 Last Infusion: 05/18/19 13:46 Dose: 0 mls/hr Documented by: [id number] Admin: 05/18/19 12:37 Dose: 999 mls/hr Documented by: [id number] Acetaminophen (Ofirmev) 1,000 mg in 100 mls @ 400 mls/hr IV NOW STA Stop: 05/18/19 13:23 Last Infusion: 05/18/19 13:44 Dose: 0 mls/hr Documented by: [id number] Admin: 05/18/19 13:21 Dose: 400 mls/hr Documented by: [id number] Sodium Chloride (Nss 1000ml) 500 mls @ 999 mls/hr IV .Q31M ONE Stop: 05/18/19 13:55 Last Infusion: 05/18/19 14:37 Dose: 0 mls/hr Documented by: [id number] Admin: 05/18/19 14:02 Dose: 999 mls/hr Documented by: [id number] Methylprednisolone (Solumedrol) 125 mg IV NOW STA Stop: 05/18/19 12:18 Last Admin: 05/18/19 12:37 Dose: 125 mg Documented by: [id number] Critical Care Time Critical Care Time: Yes Total Critical Care Time: 83 I have personally spent 83 minutes of critical care time in the direct management of this patient. This includes bedside care, interpretation of diagnostic studies, and testing, discussion with consultants, patient, and family members, and other required patient management activities. This 83 minutes is in excess of all separately billable procedures. Medical Decision Making Differential Diagnosis Differential diagnoses includes but is not limited to pneumonia, bronchitis, COPD/Asthma exacerbation, pneumothorax, pulmonary embolism, congestive heart f ailure, acute coronary syndrome. Medical Records Attestation: I reviewed the patient's medical records. Home Medications Current Medication List: was personally reviewed by me Laboratory Data Attestation: I reviewed the patient's lab results. Result diagrams: 05/18/19 12:05 05/18/19 12:05 Lab Results 05/18/19 05/18/19 05/18/19 Range/Units 12:05 12:05 12:05 WBC 8.24 (4.8-10.8) K/uL RBC 3.06 L (4.7-6.1) M/uL Hgb 12.6 L (14.0-18.0) g/dL Hct 38.8 L (42-52) % MCV 126.8 H (80-100) fL MCH 41.2 H (25-34) pg MCHC 32.5 (32-36) g/dL RDW Std Deviation 77.5 H (36.4-46.3) fL RDW Coeff of Yi 16.9 H (11.5-14.5) % Plt Count 334 (130-400) K/uL MPV 9.7 (7.4-10.4) fL Immature Gran % (Auto) 0.4 % Neut % (Auto) 72.5 % Lymph % (Auto) 12.5 % [place] % (Auto) 13.3 % Eos % (Auto) 1.2 % Baso % (Auto) 0.1 % Immature Gran # (Auto) 0.03 H (0.00-0.02) K/uL Neut # (Auto) 5.97 (1.4-6.5) K/uL Lymph # (Auto) 1.03 L (1.2-3.4) K/uL [place] # (Auto) 1.10 H (0.11-0.59) K/uL Eos # (Auto) 0.10 (0-0.5) K/uL Baso # (Auto) 0.01 (0-0.2) K/uL Absolute Nucleated RBC 0.02 H (0-0) K/uL Nucleated RBC % (auto) 0.3 % Macrocytosis Present Target Cells 1+ Calvo-Hissop Bodies 1+ PT 11.5 (9.0-12.0) Seconds INR 1.1 (0.9-1.1) APTT 27.3 (21.0-31.0) Seconds PTT Ratio 1.0 VBG pH (7.36-7.41) VBG pCO2 (38-50) mmHg VBG pO2 mmHg VBG HCO3 mmol/L VBG O2 Saturation % VBG Base Excess mEq/L Barometric Pressure mm/Hg Sodium 140 (136-145) mmol/L Potassium 4.1 (3.5-5.1) mmol/L Chloride 102 (98-107) mmol/L Carbon Dioxide 36 H (21-32) mmol/L Anion Gap 2.0 L (3-11) BUN 15 (7-18) mg/dl Creatinine 0.89 (0.6-1.4) mg/dl Est Cr Clr Drug Dosing 84.6 ml/min Est GFR ( Amer) 102.5 Est GFR (Non-Af Amer) 88.5 BUN/Creatinine Ratio 16.8 (10-20) Glucose 91 (70-99) mg/dl Lactate (0.4-2.0) mmol/L Calcium 9.3 (8.5-10.1) mg/dl Total Bilirubin 0.7 (0.2-1) mg/dl AST 27 (15-37) U/L ALT 15 (12-78) U/L Alkaline Phosphatase 205 H (45-117) U/L Total Protein 8.0 (6.4-8.2) gm/dl Albumin 3.1 L (3.4-5.0) gm/dl Globulin 4.9 H (2.5-4.0) gm/dl Albumin/Globulin Ratio 0.6 L (0.9-2) Procalcitonin (0-0.5) ng/ml Influenza Type A (PCR) (Neg) Influenza Type B (PCR) (Neg) 05/18/19 05/18/19 05/18/19 Range/Units 12:05 12:05 12:39 WBC (4.8-10.8) K/uL RBC (4.7-6.1) M/uL Hgb (14.0-18.0) g/dL Hct (42-52) % MCV (80-100) fL MCH (25-34) pg MCHC (32-36) g/dL RDW Std Deviation (36.4-46.3) fL RDW Coeff of Yi (11.5-14.5) % Plt Count (130-400) K/uL MPV (7.4-10.4) fL Immature Gran % (Auto) % Neut % (Auto) % Lymph % (Auto) % [place] % (Auto) % Eos % (Auto) % Baso % (Auto) % Immature Gran # (Auto) (0.00-0.02) K/uL Neut # (Auto) (1.4-6.5) K/uL Lymph # (Auto) (1.2-3.4) K/uL [place] # (Auto) (0.11-0.59) K/uL Eos # (Auto) (0-0.5) K/uL Baso # (Auto) (0-0.2) K/uL Absolute Nucleated RBC (0-0) K/uL Nucleated RBC % (auto) % Macrocytosis Target Cells Calvo-Hissop Bodies PT (9.0-12.0) Seconds INR (0.9-1.1) APTT (21.0-31.0) Seconds PTT Ratio VBG pH 7.25 L (7.36-7.41) VBG pCO2 87 H (38-50) mmHg VBG pO2 50 mmHg VBG HCO3 37 mmol/L VBG O2 Saturation 71.0 % VBG Base Excess 7.0 mEq/L Barometric Pressure 724.3 mm/Hg Sodium (136-145) mmol/L Potassium (3.5-5.1) mmol/L Chloride (98-107) mmol/L Carbon Dioxide (21-32) mmol/L Anion Gap (3-11) BUN (7-18) mg/dl Creatinine (0.6-1.4) mg/dl Est Cr Clr Drug Dosing ml/min Est GFR ( Amer) Est GFR (Non-Af Amer) BUN/Creatinine Ratio (10-20) Glucose (70-99) mg/dl Lactate 0.7 (0.4-2.0) mmol/L Calcium (8.5-10.1) mg/dl Total Bilirubin (0.2-1) mg/dl AST (15-37) U/L ALT (12-78) U/L Alkaline Phosphatase (45-117) U/L Total Protein (6.4-8.2) gm/dl Albumin (3.4-5.0) gm/dl Globulin (2.5-4.0) gm/dl Albumin/Globulin Ratio (0.9-2) Procalcitonin < 0.05 (0-0.5) ng/ml Influenza Type A (PCR) (Neg) Influenza Type B (PCR) (Neg) 05/18/19 05/18/19 Range/Units 13:34 13:52 WBC (4.8-10.8) K/uL RBC (4.7-6.1) M/uL Hgb (14.0-18.0) g/dL Hct (42-52) % MCV (80-100) fL MCH (25-34) pg MCHC (32-36) g/dL RDW Std Deviation (36.4-46.3) fL RDW Coeff of Yi (11.5-14.5) % Plt Count (130-400) K/uL MPV (7.4-10.4) fL Immature Gran % (Auto) % Neut % (Auto) % Lymph % (Auto) % [place] % (Auto) % Eos % (Auto) % Baso % (Auto) % Immature Gran # (Auto) (0.00-0.02) K/uL Neut # (Auto) (1.4-6.5) K/uL Lymph # (Auto) (1.2-3.4) K/uL [place] # (Auto) (0.11-0.59) K/uL Eos # (Auto) (0-0.5) K/uL Baso # (Auto) (0-0.2) K/uL Absolute Nucleated RBC (0-0) K/uL Nucleated RBC % (auto) % Macrocytosis Target Cells Calvo-Hissop Bodies PT (9.0-12.0) Seconds INR (0.9-1.1) APTT (21.0-31.0) Seconds PTT Ratio VBG pH (7.36-7.41) VBG pCO2 (38-50) mmHg VBG pO2 mmHg VBG HCO3 mmol/L VBG O2 Saturation % VBG Base Excess mEq/L Barometric Pressure mm/Hg Sodium (136-145) mmol/L Potassium (3.5-5.1) mmol/L Chloride (98-107) mmol/L Carbon Dioxide (21-32) mmol/L Anion Gap (3-11) BUN (7-18) mg/dl Creatinine (0.6-1.4) mg/dl Est Cr Clr Drug Dosing ml/min Est GFR ( Amer) Est GFR (Non-Af Amer) BUN/Creatinine Ratio (10-20) Glucose (70-99) mg/dl Lactate 0.6 (0.4-2.0) mmol/L Calcium (8.5-10.1) mg/dl Total Bilirubin (0.2-1) mg/dl AST (15-37) U/L ALT (12-78) U/L Alkaline Phosphatase (45-117) U/L Total Protein (6.4-8.2) gm/dl Albumin (3.4-5.0) gm/dl Globulin (2.5-4.0) gm/dl Albumin/Globulin Ratio (0.9-2) Procalcitonin (0-0.5) ng/ml Influenza Type A (PCR) Neg for Influ A (Neg) Influenza Type B (PCR) Neg for Influ B (Neg) Imaging Data Radiologist's Impression: Radiology results as stated below per my review and the radiologist's interpretation: XR chest 1V portable HISTORY: 68 years-old Male Sepsis acute sepsis COMPARISON: Chest radiograph 05/12/2019 TECHNIQUE: Portable AP view of the chest FINDINGS: Cardiac silhouette is enlarged. Pulmonary vascular congestion with mild interstitial coarsening persists. Patient is slightly rotated towards the left. Hypoinflation. Mild right hemidiaphragmatic elevation. Persistent patchy bi basilar opacities, left greater than right. No pneumothorax or large pleural effusion. Degenerative changes of the shoulders and spine. Metallic coils project over the epigastric distribution. IMPRESSION: 1. Cardiomegaly with pulmonary vascular congestion. 2. Patchy bibasilar opacities, left greater than right suggest atelectasis versus pneumonitis. The above report was generated using voice recognition software. It may contain grammatical, syntax or spelling errors. Electronically signed by: Baldev Dumont M.D. 05/18/2019 12:26 PM ECG Data Attestation: I personally reviewed and interpreted this ECG as follows: Indication: + SOB/dyspnea Rate (beats per minute): 71 Rhythm: + normal sinus ECG [place]: + Normal ECG ST segments: + T-wave inversions (lead 3); no ST depression and no ST elevation ECG Findings: + Other (normal intervals) Comparison ECG Date: from (05/07/2019) Change: the following changes noted (rate is faster) Blood Pressure Blood Pressure Findings: Normal blood pressure Blood Pressure Disposition: did not require urgent referral MDM Narrative The patient is a 68 year old male w/ PMHx COPD, depression, dysphagia, thrombocytopenia, diverticulitis, GI bleed, pancreatitis, HTN, Parkinsons, peptic ulcer disease, cholecystectomy, bowel resection, splenectomy, and deep brain stimulator who presents to the ED w/ CC of an episode of respiratory problems starting this morning. Patient was seen and evaluated the bedside. The patient was in significant respiratory distress. I did review the patient's prior history which was concern for parkinsonian symptoms and associated hypoxia. The patient also does have a history of COPD and had been discharged on a trilogy device nebulizer machine. Per the patient's the patient was able to get approval for the percussion vest. The patient is alert and arousable and does follow some very basic commands but does appear deconditioned and weak. The patient does have coarse breath sounds gurgling and decreased breath sounds throughout. Poor respiratory effort also noted. I did have the staff call respiratory to place the patient immediately on BiPAP as the patient was currently satting in the low 90s on 15 L via oxymask. Was ordered nebulizer treatment steroids restrictive antibiotics blood cultures. Patient did have a notable urinary retention Rossi was placed. I was called several times in order to reassess the patient due to concern for desaturations. I did make subtle adjustments to the patient's inspiratory pressure PEEP and FiO2 in order to maintain appropriate saturations. The patient is suffering from acute on chronic hypercapnic and hypoxic res piratory failure. Patient is DNR/DNI per the . Patient did bump a temperature flu swab was ordered initial to cath urine as well as the patient being given IV Tylenol given the concern that the patient would require BiPAP and using it for p.o. Tylenol because the patient to suffer respiratory failure. EKG is unremarkable. White count is normal. Hemoglobin is essentially baseline. Patient's VBG was consistent with acute on chronic hypercapnia. Lactate was not elevated. He did receive IV fluids. Flu negative. Impression & Plan Hypercapnic respiratory failure, Respiratory failure with hypoxia, Anemia, Respiratory distress, Hx of Parkinson's disease, Sepsis, Fever Discharge Plan Visit Data *Final* Discharge Date/Time: 05/18/19 15:35 Chief Complaint: Respiratory Problems ED Provider: Morgan Bello Discharge Problem: Hypercapnic respiratory failure, Respiratory failure with hypoxia, Anemia, Respiratory distress, Hx of Parkinson's disease, Sepsis, Fever Patient Disposition: Admitted As Inpatient Discharge Instructions Interventions: ED Discharge Assessment Last Done: 05/18/19 15:35 The scribe's documentation has been prepared under my direction and personally reviewed by me in its entirety. I confirm that the note above accurately reflects all work, treatment, procedures, and medical decision making performed by me.
[2019-05-18 16:52] LABS: Base Excess ABG 1.6 mEq/L (-9-1.8); HCO3 ABG 36 mmol/L (19-24); PCO2 ABG 126 mmHg (35-46); PO2 ABG 77 mm/Hg (80-95)
--- NOTE | 2019-05-18 16:54 | XRay Report ---
XR KUB/Abdomen 1 view CLINICAL HISTORY: ?ileus pain. Obstruction. COMPARISON STUDY: 03/25/2017 FINDINGS: Moderate increase in colonic fecal load. Postoperative changes are considered stable within the abdomen and pelvis. The bowel pattern is nonobstructive. IMPRESSION: 1. No evidence for obstruction. 2. Moderate increase in colonic fecal load. The above report was generated using voice recognition software. It may contain grammatical, syntax or spelling errors. Electronically signed by: Jett Lofton M.D. 05/18/2019 4:52 PM
[2019-05-18] MEDS ORDERED: PIPERACILLIN/TAZOBACTAM 3.375 GM in DEXTROSE 5% 100 ML IV ONE (17:00)
[2019-05-18] MEDS ORDERED: CARBIDOPA/LEVODOPA 25/100MG TAB PO SCH (17:00)
[2019-05-18 17:02] LABS: Allen Test Pos (Pos); pH ABG 7.07 (7.35-7.45)
[2019-05-18 17:16] LABS: Albumin Level 2.7 gm/dl (3.4-5.0); Bilirubin Direct 0.2 mg/dl (0-0.2); Bilirubin,Total 0.5 mg/dl (0.2-1); Magnesium 2.2 mg/dl (1.8-2.4); Total Protein 6.9 gm/dl (6.4-8.2)
[2019-05-18] MEDS ORDERED: LORazepam 1 MG/2 ML VIAL IV PRN (17:35)
[2019-05-18] MEDS ORDERED: ATROPINE SULFATE 1% OP SOLN 2 ML BTL PO PRN (17:35)
[2019-05-18] MEDS: MoRPHine SULFATE 2 MG/ML CARP IV PRN ×2 (18:13→19:19)
[2019-05-18] MEDS ORDERED: FORMOTEROL 20 MCG/2 ML VIAL NEB SCH (19:00)
[2019-05-18] MEDS ORDERED: VANCOMYCIN HCL 1,000 MG in SODIUM CHLORIDE 0.9% 250 ML IV SCH (20:00)
--- NOTE | 2019-05-18 20:04 | Discharge Summary ---
Date of Service May 18, 2019 Admission HPI Per Admitting Provider Mr. Papito Schwarz is an unfortunate 68-year-old male with history of Parkinson's disease, dysphasia with chronic aspiration presenting with worsening respiratory status, weakness, fever. Patient was recently admitted to [facility] on 05/07/2019 through 05/15/2019 after presenting with shortness of breath and choking while eating. During that hospital stay he was evaluated by Gastroenterology, Pulmonology, Cardiology and Palliative Care. He had an EGD performed on 05/13/[address] Gonzales which showed no strictures. He was treated for COPD exacerbation. He was managed with aggressive pulmonary toilet and secretion management. He was discharged home and arranged to have home Trilogy, nebulizers and percussion vest. History obtained from at bedside as patient is somnolent and altered. She reports that since his return home on 05/15 patient has not been doing well. He has had progressive shortness of breath as well as pronounced "gurgling" upper airway noise, weakness, fatigue, decreased p.o. intake. Patient unable to ambulate at home. Additionally, patient has had no bowel movement x11 days as well as decreased urine output and nausea. This morning, patient found to have a fever. Also, was unable to wake him up as he was minimally responsive. Patient opens eyes to verbal stimuli and follows commands, however, is unable to provide details of history. He does deny pain at this time. ER course: Acetaminophen x1 g, albuterol 12 mL neb, azithromycin 500 mg IV, cefepime 2 g IV, Solu-Medrol 125 mg IV, normal saline 1500 mL, vancomycin 2250 mg IV Admission Exam (Per Admitting) Constitutional General: patient ill in appearance, somnolent, arousable, follows commands, BiPAP in place Skin: warm, moist, intact, no rashes or lesions HEENT: NC/AT, PERRL, anicteric sclera, conjunctiva without injection, external ear normal to inspection and nontender, nares patent, dry mucus membranes, den tition intact, no oropharyngeal lesions, neck supple, trachea midline, no LAD, no thyromegaly, no JVD, scopolamine patch behind left ear Heart: +S1/S2, regular, no m/r/g Lungs: Coarse breath sounds bilaterally with diffuse end expiratory wheezing Abd: Diminished bowel sounds, abdomen soft, NT, mildly distended with reducible umbilical hernia, no organomegaly/ascites Ext: warm, 2+ pulses in UE/LE bilaterally, no clubbing/cyanosis or edema Neuro: nonfocal, somnolent but arousable, following commands, no facial droop, moving all extremities on command with equal strength / Discharge Data Consultations 05/18/19 13:30 ED Decision to Admit Stat Hospital Course (1) Respiratory failure: Patient made comfort care by and son as per HPI addendum. Called by nurse, patient unresponsive. Patient found to be apneic, pulseless, no spontaneous heart tones, patient does not withdrawal from noxious stimuli, pupils fixed and dilated bilaterally. Patient pronounced at 19:24 secondary to hypercapnic respiratory failure secondary to aspiration secondary to Parkinson's disease. Patient's and son are at bedside. Internal Medicine Nurse Practitioner notified by nursing staff
[2019-05-18] MEDS ORDERED: TAMSULOSIN HCL 0.4 MG CAP PO SCH (21:00)
[2019-05-18] MEDS ORDERED: ENOXAPARIN INJ 40 MG/0.4 ML SYR SQ SCH (21:00)
[2019-05-18] MEDS ORDERED: FINASTERIDE 5 MG TAB PO SCH (21:00)
[2019-05-18] MEDS ORDERED: guaiFENesin 600 MG TABCR PO SCH (21:00)
[2019-05-18] MEDS ORDERED: FLUTICASONE/SALMETEROL 250/50 (ADVAIR) 14 PUFF/1 INHALER INH SCH (21:00)
[2019-05-18] MEDS ORDERED: PIPERACILLIN/TAZOBACTAM 3.375 GM in DEXTROSE 5% 100 ML IV SCH (22:00)
[2019-05-19] MEDS ORDERED: CHECK SCOPOLAMINE PATCH PLACEMENT SCH
[2019-05-19] MEDS ORDERED: SCOPOLAMINE 1.5 MG TDSY TD SCH (08:00)
[2019-05-19] MEDS ORDERED: HYDROXYUREA 500 MG CAP PO SCH (09:00)
[2019-05-19] MEDS ORDERED: PROPRANOLOL HCL 60 MG LA CAP PO SCH (09:00)
[2019-05-19] MEDS ORDERED: predniSONE 20 MG TAB PO SCH (09:00)
[2019-05-19] MEDS ORDERED: PANTOprazole 40 MG TAB PO SCH (09:00)
[2019-05-19] MEDS ORDERED: ESCITALOPRAM OXALATE 10 MG TAB PO SCH (09:00)
--- NOTE | 2019-05-25 11:20 | Coding Query ---
To promote full compliance with coding requirements relating to patient care, provider participation is requested in all cases of administrative personal assistant uncertainty. Please assist us with the question(s) below: Coding Question(s): The diagnosis(es) below was documented in the ER H&P and H&P, then subsequently fell off all further documentation. Please indicate if it is still a possible diagnosis or ruled out. Physician's Response(s): SEPSIS (documented on ER H&P) ( X ) Diagnosed and POA ( ) Diagnosed and not POA ( ) Ruled out ( ) Other (please specify) ASPIRATION PNEUMONIA (DOCUMENTED ON H&P and then DS documents only Aspiration) (X ) Diagnosed and POA ( ) Diagnosed and not POA ( ) Ruled out ( ) Other (please specify) MTDD
== END 2019-05-18 22:17 | disposition expired | DRG 871 ==
LOC: ED 11:50 → 2E 14:13